=== PATIENT | female | born 1970 | race Caucasian/White ===

== ENCOUNTER 2019-09-12 10:59 | Outpatient (REF) | payer MEDICAID, SELFPAY ==
[2019-09-12 13:01] LABS: Bilirubin Negative (Negative); Blood Trace-lysed (Negative); Clarity Clear (Clear); Glucose Negative (Negative); Ketones Negative (Negative); Leukocyte Esterase Negative (Negative); Nitrite Negative (Negative); Urobilinogen 0.2 EU/dL (Up TO 0.2); pH 6.5 (5-8)
[2019-09-12 13:14] LABS: RBC 0-2 HPF (0-2); WBC 0-2 HPF (0-5)
[2019-09-12 13:15] LABS: Bacteria Negative HPF (Negative); C & S Indicated? C&S Done As Ordered; Casts Negative LPF (Negative); Crystals Negative HPF (Negative); Epithelial Cells Rare HPF (Negative); Mucus Negative (Negative); Other Cells Negative (Negative)
[2019-09-12 13:16] LABS: ALT 51 U/L (14-59); AST 36 U/L (15-37); Albumin 3.3 g/dL (3.4-5.0); Alkaline Phosphatase 36 U/L (46-116); Amylase 65 U/L (25-115); Anion Gap 9.4 mmol/L (3-11); BUN 11 mg/dL (7-18); Bilirubin, Total 0.4 mg/dL (0.2-1.0); CO2 27.6 mmol/L (21.0-32.0); CREATININE 0.59 mg/dL (0.55-1.02); Calcium 8.8 mg/dL (8.5-10.1); Chloride 106 mmol/L (98-107); Glucose 89 mg/dL (74-106); Lipase 318 U/L (73-393); Potassium 3.9 mmol/L (3.5-5.1); Sodium 143 mmol/L (136-145); Total Protein 6.5 g/dL (6.4-8.2)
[2019-09-12 13:31] LABS: HCT 41.3 % (36.0-46.0); HGB 14.4 g/dL (12.0-15.5); Mean Corp. HGB Concentration 34.9 g/dL (32.0-36.0); Mean Corpuscular Volume 94.7 fL (80-95); Mean Platelet Volume 10.7 fL (8.0-11.0); Platelet Count 220 x1000/uL (130-400); RBC 4.36 m/cumm (4.00-5.20); RBC Distribution Width 11.2 % (11.7-14.6); White Blood Cell Count 4.55 k/cumm (4.4-10.8)
== END 2019-09-12 11:19 ==
LOC: NCHCN 10:59
PROVIDERS: PCP Nurse Practitioner Family; Visit Provider Nurse Practitioner Family
DX: R19.7 Diarrhea, unspecified (principal); K58.9 Irritable bowel syndrome, unspecified; R35.0 Frequency of micturition
CPT/HCPCS: 80053; 83690; 85027; 81003; 81015; 82150; 87086

== ENCOUNTER 2019-09-12 11:12 | Outpatient (CLI) | payer MEDICAID, SELFPAY ==
--- NOTE | 2019-09-12 10:57 | DI.RAD_ITS ---
EXAM: XR ABDOMEN FLAT UPRIGHT CLINICAL HISTORY: GASTROPARESIS K31.84 TECHNIQUE: COMPARISON: No exams were available for comparison FINDINGS: Two views were obtained. The bowel gas pattern is unremarkable. No organomegaly seen. No free air identified on upright view. IMPRESSION: Negative examination of the abdomen.
== END 2019-09-12 11:32 ==
PROVIDERS: PCP Nurse Practitioner Family; Visit Provider Nurse Practitioner Family
DX: K31.84 Gastroparesis (principal)
CPT/HCPCS: 74019

== ENCOUNTER 2019-09-13 12:49 | Outpatient (REF) | payer MEDICAID, SELFPAY ==
[2019-09-16 12:11] LABS: Campylobacter PCR Negative (Negative); Salmonella PCR Negative (Negative); Shiga Toxin PCR Negative (Negative); Shigella/Enteroinvasive Ecoli Negative (Negative)
== END 2019-09-13 13:09 ==
LOC: NCHCN 12:49
PROVIDERS: PCP Nurse Practitioner Family; Visit Provider Nurse Practitioner Family
DX: K58.9 Irritable bowel syndrome, unspecified (principal); R19.7 Diarrhea, unspecified
CPT/HCPCS: 87329; 87505; 83630; 87324

== ENCOUNTER 2019-10-02 12:22 | Outpatient (REF) | payer MEDICAID, SELFPAY ==
[2019-10-03 13:20] LABS: Chlamydia Result Negative (Negative); GC Result Negative (Negative)
== END 2019-10-02 12:42 ==
LOC: LBN 12:22
PROVIDERS: PCP Nurse Practitioner Family; Visit Provider Nurse Practitioner Family
DX: Z11.3 Encounter for screening for infections with a predominantly sexual mode of transmission (principal)
CPT/HCPCS: 87491; 87591

== ENCOUNTER 2019-10-06 01:20 | Outpatient (CLI) | payer MEDICAID, SELFPAY ==
--- NOTE | 2019-10-06 13:03 | DI.US_ITS ---
EXAM: US PELVIS TRANSVAGINAL CLINICAL HISTORY: Hx uterine fibroids, pelvic pain, dyspareunia. TECHNIQUE: Ultrasound of the pelvic, both abdmonal and tranvaginal was performed using standard prot ocol. COMPARISON: No exams were available for comparison FINDINGS: KIDNEYS: Kidneys are symmetric in size. No evidence of renal calculi. No evidence of hydronephrosis. No renal mass or cyst identified. UTERUS: Position: Anteverted. Size: 8.8 x 4.2 x 5.8 cm Endometrium: 0.3 cm. Normal for patient's menstrual status. Myometrium: Multiple uterine fibroids are present. The largest is seen in the anterior fundal region and measures 2.7 x 2.1 x 2.0 cm. Cervix: Small nabothian cysts. OVARIES: Right: 2.0 x 1.1 x 1.3 cm Cyst or mass: None. Left: 1.9 x 1.3 x 1.6 cm Cyst or mass: Small cysts less than 2 cm. DOPPLER: Color: Symmetric and uniform flow to both ovaries. No hyperemia. Duplex: Normal ovarian arterial waveforms visualized. CUL-DE-SAC: Free fluid: None. IMPRESSION: 1. Normal sonographic appearance of the kidneys. 2. Multiple uterine fibroids. 3. Unremarkable bilateral ovaries.
== END 2019-10-06 01:40 ==
PROVIDERS: PCP Nurse Practitioner Family; Visit Provider Nurse Practitioner Family
DX: R10.2 Pelvic and perineal pain (principal); N94.10 Unspecified dyspareunia; D25.9 Leiomyoma of uterus, unspecified
CPT/HCPCS: 76830; 76856

== ENCOUNTER 2020-04-30 04:12 | Outpatient (CLI) | payer MEDICAID, SELFPAY ==
--- NOTE | 2020-04-30 06:30 | DI.MRI_ITS ---
EXAM: MR BRAIN WO/W CLINICAL HISTORY: MS, clinically stable,G35. TECHNIQUE: Multiplanar multisequence MRI was performed. FINDINGS: MR examination of the brain was performed according to the usual protocol with additional post contra st axial and coronal T1 weighted imaging and T1 MP RAGE imaging. Patient reportedly has a history of multiple sclerosis. Prior brain MRI from 12/25/2018 from [facility] showed multiple predominantly periventricular white matter lesions. Minimal enhancement was present in a right callosal lesion. On today's examination, note is again made of multiple periventricular lesions. These are predominan tly unchanged, a tiny new lesion is noted in the macario radiata on the right, a couple of other lesio ns are minimally increased or decreased in signal intensity. Note is again made of enhancement in the 11 millimeter in diameter right callosal lesion on post cont rast imaging. The degree of enhancement is a little more prominent on today's examination than was p reviously seen. No additional areas of enhancement are identified. The orbital structures appear intact. No gross enhancement in optic nerves or chiasm. No signal abn ormality of the optic nerves. The temporal bone structures appear intact. There is normal flow void in Rsdzep-qw-Hvzive vasculature. Diffusion-weighted imaging is unremarkable. Susceptibility weighted imaging shows no evidence of acu te intracranial hemorrhage. IMPRESSION: Predominantly stable appearance of multiple presumed MS plaques as described above. At least one new tiny right macario radiata lesion is noted. Enhancement is noted in a right callosal lesion, slightly more prominent enhancement in comparison wi prior study. DATA REPOSITORY: Are a [employer]
[2020-04-30] MEDS: Gadoterate meglumine 20 ML VIAL 11 ML IVP (09:38)
[2020-04-30] MEDS: Normal Saline Flush 10 ML SYR IVP (09:39)
== END 2020-04-30 04:32 ==
PROVIDERS: PCP Nurse Practitioner Family; Visit Provider Psychiatry & Neurology Neurology
DX: G35 Multiple sclerosis (principal)
CPT/HCPCS: 70553

== ENCOUNTER 2020-06-04 04:48 | Outpatient (CLI) | payer MEDICAID, SELFPAY ==
--- NOTE | 2020-06-04 08:15 | DI.US_ITS ---
EXAM: US PELVIS TRANSVAGINAL CLINICAL HISTORY: hx of septated L ovarian cyst,uterine fibroid,dyspareunia,d25.0,d25.1,d25.2 TECHNIQUE: Transabdominal and transvaginal imaging was performed using standard protocol. COMPARISON: US US PELVIS TRANSVAGINAL from 10/06/2019 FINDINGS: KIDNEYS: Kidneys are symmetric in size. No evidence of renal calculi. No evidence of hydronephrosis. No renal mass or cyst identified. UTERUS: Anteverted. 8.3 x 4.6 x 6 cm. Endometrium: 4 millimeters, homogeneous. Myometrium: Multiple fibroids, the largest measuring 2.8 cm toward the right. Cervix: Small nabothian cysts. OVARIES: Right: Cyst or mass: None. Left: Cyst or mass: None. DOPPLER: Color: Symmetric and uniform flow to both ovaries. No hyperemia. Duplex: Normal ovarian arterial waveforms visualized. CUL-DE-SAC: Free fluid: None. IMPRESSION: 1. Multiple small fibroids. Endometrial stripe within normal limits. 2. Unremarkable bilateral ovaries. DATA REPOSITORY:
== END 2020-06-04 05:08 ==
PROVIDERS: PCP Nurse Practitioner Family; Visit Provider Obstetrics & Gynecology Gynecology
DX: D25.0 Submucous leiomyoma of uterus (principal); D25.1 Intramural leiomyoma of uterus; D25.2 Subserosal leiomyoma of uterus
CPT/HCPCS: 76830; 76856

== ENCOUNTER 2021-06-21 12:24 | Outpatient (REF) | payer MEDICAID, SELFPAY ==
--- NOTE | 2021-06-21 10:30 | PAPFT_PTH ---
PATIENT: Yumi Leal LOC: [facility]#:[id number] AGE/SX: 51/F ROOM: RE06/21/[address]: Nicole Mays : 1970 BED: DIS: 06/21/2021 SPEC #: [id number] RECD: 06/21/21 13:08 STATUS: ALEXEY REQ #: [id number] JAYLAN: 06/21/21 10:[address]: Nicole Mays DEPT: [facility] Cytology RECD BY: Sydney Dawn ENTERED: 06/21/21 13:08 SP TYPE: PAPFT OTHR DR: John Rosario Tissues: 1 - CX/ENDOCX FOR PAP SMEARS Procedures: PAP THIN PREP/UVM Screening HPV DNA PROBE Comments: [id number]
== END 2021-06-21 12:25 | disposition home or self-care (01) ==
LOC: LBN 12:24
PROVIDERS: PCP Nurse Practitioner Family; Visit Provider Obstetrics & Gynecology Gynecology
DX: Z12.4 Encounter for screening for malignant neoplasm of cervix (principal); Z11.51 Encounter for screening for human papillomavirus (HPV); Z01.419 Encounter for gynecological examination (general) (routine) without abnormal findings
CPT/HCPCS: 88142; 87624

== ENCOUNTER 2021-07-20 00:53 | Outpatient (CLI) | payer MEDICAID, SELFPAY ==
--- NOTE | 2021-07-20 11:00 | DI.MAMMO_ITS ---
Exam(s) MAMMO SCREENING EXAM: MAMMO SCREENING CLINICAL HISTORY: screening TECHNIQUE: Mammograms were interpreted according to the usual protocol including computer analysis w [employer] CAD system, tomosynthesis and C-view imaging. COMPARISON: FINDINGS: The breasts are heterogeneously dense. No dominant mass or clumped microcalcification is identified in either breast. The current examination is compared with previous examinations including January 2019 and there has been no gross interval change in appearance in comparison with the prior studies. IMPRESSION: No specific evidence of malignancy at this time. Routine screening examinations are suggested at yea rly intervals in this age group according to the ACS ACR guidelines. BI-RADS Category 1 - Negative Density Breast Density - Category C - Heterogeneously dense
== END 2021-07-20 01:13 ==
PROVIDERS: PCP Nurse Practitioner Family; Visit Provider Obstetrics & Gynecology Gynecology
DX: Z12.31 Encounter for screening mammogram for malignant neoplasm of breast (principal)
CPT/HCPCS: 77063; 77067

== ENCOUNTER 2022-02-27 15:33 | Outpatient (REF) | payer MEDICAID, SELFPAY ==
[2022-02-27 18:54] LABS: HCT 40.8 % (36.0-46.0); HGB 14.6 g/dL (11.2-15.7); MCH 34.4 pg (27.0-33.0); MCHC 35.8 % (32.0-36.0); MCV 96 fL (80-95); MPV 11.2 fL (8.0-11.0); Platelet Count 196 10^3/uL (130-400); RBC 4.25 10^6/uL (3.93-5.22); RDW 10.7 % (11.7-14.6); WBC 7.36 10^3/uL (4.4-10.8)
[2022-02-27 19:37] LABS: Anion Gap 7.4 mmol/L (3-11); BUN 14 mg/dL (7-18); CO2 26.6 mmol/L (21.0-32.0); CREATININE 0.7 mg/dL (0.55-1.02); Calcium 8.8 mg/dL (8.5-10.1); Chloride 105 mmol/L (98-107); Glucose 88 mg/dL (74-106); Potassium 3.5 mmol/L (3.5-5.1); Sodium 139 mmol/L (136-145); TSH (W/Ref FT4) 0.81 uIU/mL (0.36-3.74)
== END 2022-02-27 15:34 | disposition home or self-care (01) ==
LOC: NCHCN 15:33
PROVIDERS: PCP Nurse Practitioner Family; Visit Provider Nurse Practitioner Family
DX: R00.2 Palpitations (principal); F41.8 Other specified anxiety disorders; L30.8 Other specified dermatitis; M25.511 Pain in right shoulder; J30.9 Allergic rhinitis, unspecified
CPT/HCPCS: 80048; 85027; 84443

== ENCOUNTER 2022-04-11 13:47 | Outpatient (CLI) | payer MEDICAID, SELFPAY ==
--- NOTE | 2022-04-11 13:15 | DI.RAD_ITS ---
Exam(s) XR SHOULDER RT COMPLETE 2+V EXAM: XR SHOULDER RT COMPLETE 2+V CLINICAL HISTORY: RIGHT SHOULDER PAIN. TECHNIQUE: 2D digital imaging was performed. Two views. COMPARISON: No exams were available for comparison FINDINGS: BONES: No acute fracture is present. No bony destructive lesion is seen. JOINTS: No dislocation present. SOFT TISSUE: Normal. IMPRESSION: Unremarkable radiographs of the right shoulder. DATA REPOSITORY: RADIATION DOSE DELIVERED:
== END 2022-04-11 13:48 | disposition home or self-care (01) ==
LOC: DIORS 13:48
PROVIDERS: PCP Nurse Practitioner Family; Referring Provider Nurse Practitioner Family; Visit Provider Student in an Organized Health Care Education/Training Program
DX: M25.511 Pain in right shoulder (principal)
CPT/HCPCS: 73030

== ENCOUNTER 2022-07-07 02:32 | Outpatient (CLI) | payer MEDICAID, SELFPAY ==
--- OUTSIDE RECORDS SUMMARY | 2022-07-07 02:43 | XMS_ITS | Clinical Summary ---
:[address] [facility] Address [address] [place] [address] Care Team Providers Name Role Phone Unavailable Primary Care Provider Unavailable Social History Tobacco Use Types Packs/Day Years Used Date Never Assessed Sex Assigned at Date Recorded Not on file Plan of Treatment Health Maintenance Due Date Last Done Comments Hepatitis C Screen 1970 COVID-19 Vaccine (1) 1984
--- OUTSIDE RECORDS SUMMARY | 2022-07-07 02:43 | XMS_ITS | Encounter Summary ---
:1970 Author Organization [facility] Address [address] [place] [address] Care Team Providers Name Role Phone Unavailable Primary Care Provider Unavailable Encounter Details Date Type Department Care Team Description 09/15/2019 Lab Requisition [facility] Unknown, Provider, Pathology & Laboratory [facility] [address] [place] [address] [place] [address] Social History Tobacco Use Types Packs/Day Years Used Date Never Assessed Sex Assigned at Date Recorded Not on file documented as of this encounter Plan of Treatment Not on filedocumented as of this encounter Procedures Procedure Name Priority Date/Time Associated Diagnosis Comme nts FECAL BACTERIAL Routine 09/13/2019 15:08 Results for this PATHOGENS BY PCR EST procedure a re in the results section. documented in this encounter Results FECAL BACTERIAL PATHOGENS BY PCR (09/13/2019 15:08 EST) Pathologist Sig nature Salmonella PCR Negative Negative [facility] Shigella/Enteroinvasive Negative Negative [facility] HN LAB CAMPYLOBACTER PCR Negative Negative [facility] Shiga Toxin PCR Negative Negative [facility] Specimen Feces - Feces Performing Organization Address City/State/ZIP Code Phon e Number [facility] [address] [place] [address] SERVICES documented in this encounter Visit Diagnoses Not on filedocumented in this encounter
--- OUTSIDE RECORDS SUMMARY | 2022-07-07 02:43 | XMS_ITS | Encounter Summary ---
:1970 Author Organization [facility] Address [address] [place] [address] Care Team Providers Name Role Phone Unavailable Primary Care Provider Unavailable Encounter Details Date Type Department Care Team Description 06/22/2021 Lab Requisition [facility] Nicole Lyle, En counter for other Pathology & MD general examination Laboratory Medicine [address] [facility] [address] [place] [address] Social History Tobacco Use Types Packs/Day Years Used Date Never Assessed Sex Assigned at Date Recorded Not on file documented as of this encounter Plan of Treatment Not on filedocumented as of this encounter Procedures Procedure Name Priority Date/Time Associated Comments Diagnosis PAP TEST Today 06/21/2021 10:30 Encounter for other Resu lts for this EDT general examination procedur e are in the results section. HUMAN PAPILLOMAVIRUS Today 06/21/2021 10:30 Encounter for ot her Results for this (HPV) DETECTION-HIGH EDT general examination procedure are in RISK TYPES the results section. documented in this encounter Results HUMAN PAPILLOMAVIRUS (HPV) DETECTION-HIGH RISK TYPES (06/21/2021 10:30 EDT) Human Papillomavirus NegativeComment: No Negative [facility] (HPV) Detection-High E6 or E7 mRNA is CENTER LABORATOR Y Types detected from HPV SERVICES types 16,18,31,33,35,39,45 ,51,52,56,58,59,66, and 68 by linux vmware administrator mediated amplification. Specimen Pap Test - Cervix and/or Endocervix Performing Organization Address City/State/ZIP Code Phon e Number [facility] [address] [place] [address] SERVICES PAP TEST (06/21/2021 10:30 EDT) Specimens A. Cervix and/or [facility] Endocervix , ThinPrep CENTER Imaging System with LABORATORY Manual Evaluation SERVICES Specimen Adequacy Satisfactory for [facility] Evaluation - CENTER transformation zone LABORATORY component present SERVICES General Negative for [facility] intraepithelial HUDSON lesion or malignancy LABORATORY SERVICES Attestation . [facility] CENTER signed by KADEN Asencio CT(ASC P) SERVICES on 07/01/2021 a t 1559 Clinical History See below [facility] HPV The result for the Human Pap illomavirus (HPV) Detection-High Risk Types is Negative. No E6 or E7 mRNA is detected from HPV types 16,18,31,33,35,39,45,51,52,56,58,59,66, and 68 by linux vmware administrator mediated [facility] amplification.Testing was pe rformed on specimen [id number] and was resulted on 07/01/2021 1555 EDT by STACEY, LAB INSTRUMENT RESULTS IN [facility] SERVICES Performing Lab [facility] Scanned Images [facility] Specimen Pap Test - Cervix and/or Endocervix Performing Organization Address City/State/ZIP Code Phon e Number [facility] [address] [place] [address] SERVICES documented in this encounter Visit Diagnoses Diagnosis Encounter for other general examination documented in this encounter
--- OUTSIDE RECORDS SUMMARY | 2022-07-07 02:43 | XMS_ITS | Encounter Summary ---
:1970 Author Organization [facility] Address [address] [place] [address] Care Team Providers Name Role Phone Unavailable Primary Care Provider Unavailable Encounter Details Date Type Department Care Team Description 10/02/2019 Lab Requisition [facility] Unknown, Provider, Pathology & Laboratory [facility] [address] [place] [address] [place] [address] Social History Tobacco Use Types Packs/Day Years Used Date Never Assessed Sex Assigned at Date Recorded Not on file documented as of this encounter Plan of Treatment Not on filedocumented as of this encounter Procedures Procedure Name Priority Date/Time Associated Comments Diagnosis CHLAMYDIA/N. Routine 10/02/2019 10:00 Results for this GONORRHOEAE AMPLIFIED EST proced ure are in RNA the results section. documented in this encounter Results CHLAMYDIA/N. GONORRHOEAE AMPLIFIED RNA (10/02/2019 10:00 EST) Pathologist Sig nature Gonococcus Result Negative Negative [facility] Chlamydia Result Negative Negative [facility] Specimen Urine - Urine (substance) Narrative [facility] - 10/03/2019 13:16 EST A first catch urine specimen is acceptab le for detection of Gonorrhea and Chlamydia, but might detect up to 10% fewer infecti ons when compared with vaginal and endocervical swab samples. Performing Organization Address City/State/ZIP Code Phon e Number [facility] [address] [place] [address] SERVICES documented in this encounter Visit Diagnoses Not on filedocumented in this encounter
--- OUTSIDE RECORDS SUMMARY | 2022-07-07 02:44 | XMS_ITS | Encounter Summary ---
:1970 Author Organization [facility] [place] [address] Care Team Providers Name Role Phone John Rosario ERICK Primary Care Provider Encounter Details Date Type Department Care Team Description 10/11/2021 Telephone [place] [facility] [place] [address] Social History Tobacco Use Types Packs/Day Years Used Date Never Assessed Sex Assigned at Date Recorded Not on file documented as of this encounter Miscellaneous Notes Telephone Encounter - Cris Younger - 10/12/2021 3:09 PM EST Left second message for patient to contact the office for scheduling. Dr Gonzalez has referred the patient to [facility]. ?? Group 1 starting 11/14 3pm-4pm Group 2 starting 12/12 11am-12pm Telephone Encounter - Cris Younger - 10/11/2021 10:12 AM EST CORRECTION: Group 1 starts 11/14 3pm-4pm Telephone Encounter - Cris Younger - 10/11/2021 9:29 AM EST Left message for patient to contact the office for scheduling. Dr Gonzalez has referred the [facility] to[facility]. Group 1 starting 11/17 3pm-4pm Group 2 starting 12/12 11am-12pm documented in this encounter Plan of Treatment Upcoming Encounters Date Type Specialty Care Team Description 11/13/2022 TH Visit (TeleHealth) Gastroenterology Frank Gonzalez MD [facility] Gastroenterology [place], [place] [address] (Wo rk) documented as of this encounter Visit Diagnoses Not on filedocumented in this encounter Care Teams Welfare Manager Relationship Specialty Start Date End Date John Rosario APRN PCP - General Family Medicine 07/23/19 [address] [place] [address] documented as of this encounter
--- OUTSIDE RECORDS SUMMARY | 2022-07-07 02:44 | XMS_ITS | Encounter Summary ---
:1970 Author Organization [facility] [place] [address] Care Team Providers Name Role Phone John Rosario APRN Primary Care Provider Encounter Details Date Type Department Care Team Description 07/18/2021 Telephone G[facility]ology at [facility] Carmen Bennett CMA [facility] Estevan [place] [address] DEPT [phone] Social History Tobacco Use Types Packs/Day Years Used Date Never Assessed Sex Assigned at Date Recorded Not on file documented as of this encounter Miscellaneous Notes Telephone Encounter - Carmen Bennett CMA - 07/18/2021 8:30 AM EST Called patient to review medications and allergies for their upcoming gastroenterology Type of Appointment: Telehealth appointment. Reach Patient during MA Check: No, Left Message Notes for the provider: Notes for the nurse: documented in this encounter Plan of Treatment Upcoming Encounters Date Type Specialty Care Team Description 11/13/2022 TH Visit (TeleHealth) Gastroenterology Frank Gonzalez MD [facility] Dr Gastroenterology [place], [place] [address] (Wo rk) documented as of this encounter Visit Diagnoses Not on filedocumented in this encounter Care Teams Bank Boss Relationship Specialty Start Date End Date John Rosario APRN PCP - General Family Medicine 07/23/19 [address] [place] [address] documented as of this encounter
--- OUTSIDE RECORDS SUMMARY | 2022-07-07 02:44 | XMS_ITS | Encounter Summary ---
:1970 [place] [address] Care Team Providers Name Role Phone John Rosario APRN Primary Care Provider Reason for Visit Reason Onset Date Comments Medication Refill 11/21/2021 Encounter Details Date Type Department Care Team Description 11/21/2021 Refill Gastroenterology at [facility] Domi Orozco Irritable bowel [facility] Estevan [place] [address] constipation [phone] Social History Tobacco Use Types Packs/Day Years Used Date Never Assessed Sex Assigned at Date Recorded Not on file documented as of this encounter Plan of Treatment Upcoming Encounters Date Type Specialty Care Team Description 11/13/2022 TH Visit (TeleHealth) Gastroenterology Frank Gonzalez MD [facility] Dr Gastroenterology [place], [place] [address] (Wo rk) documented as of this encounter Visit Diagnoses Diagnosis Irritable bowel syndrome with constipati on Irritable bowel syndrome documented in this encounter Care Teams Prison Guard Supervisor Relationship Specialty Start Date End Date John Rosario APRN PCP - General Family Medicine 07/23/19 [address] [place], [place] [id number] documented as of this encounter
--- OUTSIDE RECORDS SUMMARY | 2022-07-07 02:44 | XMS_ITS | Encounter Summary ---
:1970 Author Organization [facility] [place] [address] Care Team Providers Name Role Phone John Rosario ERICK Primary Care Provider Reason for Visit Reason Onset Date Comments Prior Authorization 07/21/2021 Encounter Details Date Type Department Care Team Description 07/21/2021 Telephone Gastroenterology at [facility] Jossy, Prior Authorization [facility] [place] [address] Social History Tobacco Use Types Packs/Day Years Used Date Never Assessed Sex Assigned at Date Recorded Not on file documented as of this encounter Miscellaneous Notes Telephone Encounter - Macarena Fenton LNA - 07/21/2021 1:57 PM EST Medication Prior Authorization [facility]L Gastroenterology / [place] [address] Subscriber Insurance: [place] Medicaid Phone: Fax: Physician: Kim Gonzalez Return Pharmacy: [facility] Fax: Medication Requested: Hyoscyamine Strength: 0.125mg Frequency: Every 4 hours as needed Disp.: 30 Refills: 3 Currently taking: Diagnosis for this medication: IBS-C ICD-10 code: K58.1 Prior medications trialed in this patient: Medication: Outcome/Adverse Reactions: Decision: Not Required Tracking number/Case number/Reference number: [id number] Effective date: 07/21/2021 to 07/21/2022 Start: End: documented in this encounter Plan of Treatment Upcoming Encounters Date Type Specialty Care Team Description 11/13/2022 TH Visit (TeleHealth) Gastroenterology Frank Gonzalez MD [facility] Gastroenterology [place], [place] [address] (Wo rk) documented as of this encounter Visit Diagnoses Not on filedocumented in this encounter Care Teams Black [employer] Coating Equipment Tender Relationship Specialty Start Date End Date John Rosario APRN PCP - General Family Medicine 07/23/19 [address] [place] [address] documented as of this encounter
--- OUTSIDE RECORDS SUMMARY | 2022-07-07 02:44 | XMS_ITS | Encounter Summary ---
:1970 Author Organization [facility] [place] [address] Care Team Providers Name Role Phone John Rosario ERICK Primary Care Provider Reason for Referral Physical Therapy (Routine) - Closed Specialty Diagnoses / Procedures Referred By Contact Refer red To Contact Physical Therapy Diagnoses Chronic constipation Kim Gonzalez MD [facility] [place] [address] Referral ID Status Reason Start Date Expiration Date Visits V isits Requested Authorized [id number] Closed Evaluate and 04/11/2021 10/08/2021 12 12 Treat Consultation (Routine) - Closed Specialty Diagnoses / Procedures Referred By Contact Refer red To Contact Gastroenterology Diagnoses Abdominal bloating HBT - lactulose - Kim [place] MD [facility] 4[facility] Procedures BREATH HYDROGEN TEST PRFM [facility] lact[facility] [place] [address] Fax: Referral ID Status Reason Start Date Expiration Date Visits V isits Requested Authorized [id number] Closed Consult, 04/11/2021 04/11/2022 1 1 Test & Treat Encounter Details Date Type Department Care Team Description 04/11/2021 TH Visit Gastroenterology at [facility] Kim Gonzalez Irritable bowel syndrome, un specified type; (TeleHealth) [facility] Estevan Cohen MD Abdominal bloating; [place] [address] [facility] Medical Chronic constipation [phone] [place] [address] Social History Tobacco Use Types Packs/Day Years Used Date Never Assessed Sex Assigned at Date Recorded Not on file documented as of this encounter Patient Instructions Patient InstructionsiKm Gonzalez MD - 04/11/2021 10:00 AM EDT Recommendations ?? For difficulty with eating, try [employer] shakes ?? Stop Motegrity as this does not seem to be helping ?? Start Cymbalta 20mg/day to help reduce pain and discomfort - after one month we can increase thisdose if you let me know ?? Continue Miralax ?? Use peppermint capsules - specifically try FDgard (1 prior to eating twice a day) over the counter can help reduce nausea and stomach symptoms ?? Referral for breath test to confirm the diagnosis of small intestinal bacterial overgrowth or SIBO - this can look for both hydrogen gas as well as methane gas; if abnormal, will try a different antibiotic than flagyl ?? Would recommend a consultation with pelvic floor PT at least one time prior to this with a home exercise program if applicable - referral to [facility] ---> will fax over the referral; I did look at their website and I did not see a pelvic floor therapist, so this may not be themost helpful place to go (unless their website just needs updating) ?? Anorectal manometry not scheduled until March 2022; See information below about dyssynergia thatcan contribute to distention and constipation and the benefits of diaphragmatic breathing ?? Rescue strategy: Glycerine or dulcolax suppository after breakfast or after dinner to help stimulate evacuation of stool and air/gas (in addition to dulcolax) See information abdomino-phrenic & pelvic floor dyssynergia that can contribute to abdominal distention (and constipation) ??? https://www.iffgd.org/commentary/qkvyzmekxsplw-nslwqebyga-qb-disorders.html Diaphragmatic breathing - start doing this several times per day ??? https://my.[facility].org/health/articles/4264-qulmhyeipkezp-jfhzjycsh ??? https://www.[facility].org/conditions-treatments/armwzajugzzbd-amkeppcge-ug-pepe ents Follow-up in: 2-3 months documented in this encounter Progress Notes Kim Gonzalez MD - 04/11/2021 10:00 AM EDT [facility] Section of Gastroenterology and Hepatology Follow-up Telemedicine Visit PCP: John Rosario APRN Referring provider: John Rosario APRN [address] [place] [address] HPI 51 y.o. female following up for IBS-C and gastroparesis. GI PROBLEM LIST 1. Gastroparesis <--> functional dyspepsia: NM GE scan abnormal 15% delayed, avoids high fiat/high fiber 2. IBS-C (intense pain when misses one day without a BM) ?? Colonoscopies last in 2018 (x 4) reportedly normal, 2017 for bleeding ?? Reportedly negative celiac serology ?? CTE negative 2013 ?? Trials include Miralax BID (effective, needed to have loose stools to move her bowels), Dulcolax (rescue, just 1), Milk of Magnesium 1x/wk, Linzess (gassy - multiple trials, a couple of weeks only 2/2 to pain), Amitiza (nausea, bloated - multiple trials, only a couple of weeks 2/2 to pain), Peppermint capsules (helpful), Amitriptyline, low FODMAP diet (helpful temporarily), gluten-free diet, phazyme & gas-X (not helpful), motegrity (since Sep 2020, no relief) 3. Abdominal bloating & distention - SIBO? ?? SIBO rx (rifaximin 550mg TID x 14 days on 07/23/2020) x 2 times with (sx returned a few weeks later) but seems to provide relief for about 6 months 4. H pylori s/p abx 5. PUD 6. GERD controlled on PPI Interval follow-up Pelvic floor evaluation (ARM) scheduled for MARCH 2022! Xifaxan not covered for repeat SIBO rx - given flagyl 250mg TID back in December - does not remember ifit helped. In a lot of pain over the past few months (January). Had to stop working. No QOL. Eating bland foods. Sick every day. Gas and bloating and distention. Constant gurgling. Feels like gas just sits there. On the left side. Gas-X sometimes reduces pain. Worsening pain over the past 4 days, constant. Also feels like food is not moving anywhere in her stomach. Feeling dinner from 5pm the night prior.Constant nausea. Still on Motegrity - no change with this. Daily BMs with Miralax. Trial of iberogast x 1 month - no change Pelvic floor PT for bladder - overactive bladder Prior experience with amitriptyline: fatigue Review of systems: 14-point review of systems reviewed and negative except as above. My review of the patients's history and testing (labs, endoscopies, imaging) is summarized below: INITIAL HISTORY She has daily symptoms. She is afraid to eat much due to discomfort so limits intake. Extreme bloating, rumbling, distention. Constant gas, even just with one cracker or a carrot. Does not seem to matter what she eats. Can be doubled over in the position. Can also have intermittent distention for 1-3 days at a time, looks like a basketball. Feels like she's being pumped up with air (can occur after a BM, prior to eating); different than the gas feeling.Feels like something is in there, like there's a blockage even though she knows there isn't one. Got significant relief from this feeling as well as discomfort with xifaxan. Other days she wakes up andcan have a BM and relieve all the gas. About 1 month ago she changed her diet to no carb, gluten-free, low FODMAP. Eating protein and some veggies (spinach, kale, green beans). This helped - felt good for a little while but sx returned. Her baseline bowel pattern is constipation. Progressive sx over the years. Has been on Miralax for about 10 years, which has always given her loose stools. Without Miralax she couldn't go at all for upto a week and would be very sick with nausea, pain and bloating. Takes Miralax 1 capful BID and it takes about 1 day to work. Like clockwork in the morning. Stool isloose (pure liquid). Can sometimes have a BM right when she wakes up and then after coffee. Feels completely evacuated. Missing 1-2 days without a BM triggers intense pain, may need to take a dulcolax (just 1 - more than1 cramps her). Stopped milk of Mg. Feels like she's blocked up with gas. Passes gas and then has a BM that is liquid or complete mush. Has tried phazyme, gas-X with no relief. Drinks plenty of water which she knows makes a difference - 64 ounces per day. She is very active which she tries to do - maybe it helps but not instant. Motegrity (since September) doesn't seem to be helping. Reads a lot about IBS. Recalls a lot of stomach aches as a kid. Pain worsened when she was in her 20s. Went to the ED and told she was constipated based on imaging. Started seeing a sales assistant displays then. Does not recall ever having hard stools or straining. In terms of her upper GI sx, feels like food just sits there. Has nausea. No vomiting. Diet makes a difference. Avoids red meat as this won't move. Similar to pizza. Sticks to chicken and fish. Was told she had Crohn's for some time and then this was undiagnosed. Was given some Crohn's medications. Repeat evaluation since with no signs of Crohn's. Also with H pylori hx s/p abx Protonix daily for GERD. Uveitis - eye drops, no flare ups. Hormonal fluctuations Peppermint helps. PMHx ?? Migraine ?? MS not on meds ?? Uveitis ?? Ulcer, gastric - 2/2 to NSAIDs ?? Allergic rhinitis ?? Nasal polyp, removed PSHx ?? Remote appendectomy 16 years ago SHx Smoked 3 years quit > 30 years ago FHx DM2, heart disease, mental illness. No CRC. Maternal aunt with Crohn's. Father with GERD - concern for Delgado's. TESTING As noted above TRIALS ?? Miralax BID (effective) ?? Milk of Magnesium 1x/wk ?? Linzess (gassy - multiple trials, a couple of weeks only 2/2 to pain) ?? Amitiza (nausea, bloated - multiple trials, only a couple of weeks 2/2 to pain) ?? Peppermint capsules - helpful ?? Amitriptyline ?? Low FODMAP diet - helpful ?? Gluten-free diet ?? Motegrity ?? Phazyme - no relief ?? Gas-X - no relief ?? Gabapentin - fatigue (x 1 month) Patient Active Problem List Diagnosis Code ??? Dyspepsia R10.13 ??? Chronic constipation K59.09 Current Outpatient Medications: ??? prucalopride (Motegrity) 2 mg Tablet, Take 2 mg by mouth daily., Disp: , Rfl: ??? polyethylene glycoL (Miralax) 17 gram Powder in Packet, Take 17 g by mouth daily., Disp: , Rfl: ??? pantoprazole EC (Protonix) 40 mg Tablet, Delayed Release (E.C.), Take 40 mg by mouth daily., Disp: , Rfl: Allergies Allergen Reactions ??? Fingolimod ??? Venlafaxine Other (See Comments) Headache ??? Amitriptyline ??? Dimethyl Fumarate ??? Fluoxetine ??? Gabapentin ??? Glatiramer (Copolymer 1) No past medical history on file. No past surgical history on file. Social History Socioeconomic History ??? Marital status: Spouse name: Not on file ??? Number of children: Not on file ??? Years of education: Not on file ??? Highest education level: Not on file Occupational History ??? Not on file Tobacco Use ??? Smoking status: Not on file Substance and Sexual Activity ??? Alcohol use: Not on file ??? Drug use: Not on file ??? Sexual activity: Not on file Other Topics Concern ??? Not on file Social History Narrative ??? Not on file Social Determinants of Health Financial Resource Strain: ??? Difficulty of Paying Living Expenses: Not on file Food Insecurity: ??? Worried About Running Out of Food in the Last Year: Not on file ??? Ran Out of Food in the Last Year: Not on file Transportation Needs: ??? Lack of Transportation (Medical): Not on file ??? Lack of Transportation (Non-Medical): Not on file Physical Activity: ??? Days of Exercise per Week: Not on file ??? Minutes of Exercise per Session: Not on file No family history on file. Physical Exam: No physical exam performed during this phone/telemedicine visit. PERTINENT LABS AND IMAGING: As noted above Impression: 51 y.o. female with MS not on medications, migraine headaches and uveitis following up for gastroparesis and IBS-C. Multiple sclerosis can result in dysmotility and affect the pelvic floor muscles and make them more spastic. - Functional dyspepsia (FD) <-- gastroparesis; symptoms sound more FD-like at the present time, notably she has significant nausea but is not vomiting - Constipation defined by the prolonged absence of bowel movements (> 1 week) associated with abdominal pain and bloating, requiring the use of laxatives to trigger any bowel movement (subsequently loose stool, not hard). Question pelvic floor dysfunction (has not been evaluated or ruled out) or slow transit - MS may cause both. Given degree of pain is on IBS-C spectrum. Prior eval for IBD was negative. Stool continues to be loose on Miralax. Seemingly no benefit to motegrity. Relates much of herpain to gas. Discussed visceral hypersensitivity today and how this contributes to bloating even with potentially normal amounts of gas which is most common in IBS. I think she would benefit from a neur omodulator. Secretagogues have seemed to worsen symptoms. We also discussed re- evaluating for SIBO (below). 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 Consider dysmotility with high fecal load & SIBO given response to antibiotics and abnormal NM GE scan. Recommendations ?? For difficulty with eating, try [employer] shakes ?? Stop Motegrity as this does not seem to be helping ?? Start Cymbalta 20mg/day to help reduce pain and discomfort - after one month we can increase thisdose if you let me know ?? Continue Miralax ?? Use peppermint capsules - specifically try FDgard (1 prior to eating twice a day) over the counter can help reduce nausea and stomach symptoms ?? Referral for breath test to confirm the diagnosis of small intestinal bacterial overgrowth or SIBO - this can look for both hydrogen gas as well as methane gas; if abnormal, will try a different antibiotic than flagyl ?? Would recommend a consultation with pelvic floor PT at least one time prior to this with a home exercise program if applicable - [facility] to [facility] ---> will fax over the referral; I did look at their website and I did not see a pelvic floor therapist, so this may not be themost helpful place to go (unless their website just needs updating) ?? Anorectal manometry not scheduled until March 2022; See information below about dyssynergia thatcan contribute to distention and constipation and the benefits of diaphragmatic breathing ?? Sitz Marker to assess the speed of your colon only after pelvic floor analysis; [facility] declined ?? Rescue strategy: Glycerine or dulcolax suppository after breakfast or after dinner to help stimulate evacuation of stool and air/gas (in addition to dulcolax) ?? Consider additional anti-emetics (Tigan?); consider buspar, mirtazipine or trulance, would avoid TCA at this time, did not tolerate gabapentin and amitriptyline 2/2 to fatigue See information abdomino-phrenic & pelvic floor dyssynergia that can contribute to abdominal distention (and constipation) ??? https://www.iffgd.org/commentary/rbpennphcdbtj-coauiwdqcf-bw-disorders.html Diaphragmatic breathing - start doing this several times per day ??? https://my.[facility].org/health/articles/1451-gbwfmykwvdqjb-cewvgikfn ??? https://www.[facility].org/conditions-treatments/ggbnmgohfjlvn-niibybxoy-ca-pepe ents Follow-up in: 2-3 months TIME SPENT WITH PATIENT Time spent during encounter with patient including counselin minutes Time spent documenting encounter after office visit: 10 minutes Total time: 40 minutes The risks, benefits and alternatives were discussed with the patient who understands and agrees withabove. The patient was located in [place] at the time of their telemedicine visit. Kim Gonzalez MD 04/10/21 Kim Gonzalez MD [employer] Section of Gastroenterology and Hepatology [facility] Juan [email or web address] (p) documented in this encounter Plan of Treatment Upcoming Encounters Date Type Specialty Care Team Description 11/13/2022 TH Visit (TeleHealth) Gastroenterology Frank Gonzalez MD [facility] Dr Gastroenterology [place], [place] [address] (Wo rk) Scheduled Referrals Name Type Priority Associated Order Schedule Diagnoses Referral to Outpatient Routine Abdominal bloating Ordered: Gastroenterology Referral 04/11/2021 Referral to Physical Outpatient Routine Chronic Ordered : Therapy Referral constipation 04/11/2021 documented as of this encounter Visit Diagnoses Diagnosis Irritable bowel syndrome, unspecified ty pe Abdominal bloating Flatulence, eructation, and gas pain Chronic constipation Unspecified constipation documented in this encounter Care Teams Supervisor Wool Shearing Relationship Specialty Start Date End Date John Rosario APRN PCP - General Family Medicine 07/23/19 [address] [place] [address] documented as of this encounter
--- OUTSIDE RECORDS SUMMARY | 2022-07-07 02:44 | XMS_ITS | Encounter Summary ---
:1970 Author Organization [facility] [place] [address] Care Team Providers Name Role Phone John Rosario ERICK Primary Care Provider Reason for Referral Psychiatric (Routine) - Closed Specialty Diagnoses / Procedures Referred By Contact Refer red To Contact Gastroenterology Diagnoses Irritable bowel syndrome with constipation Kim Gonzalez MD [facility], [facility] Estevan Cohen, PhD Gastroenterology [facility] [place] [address] Fax: Referral ID Status Reason Start Date Expiration Date Visits V isits Requested Authorized [id number] Closed Consult, 09/26/2021 09/26/2022 1 1 Test & Treat Encounter Details Date Type Department Care Team Description 09/26/2021 [place] [facility] [place] Gonzalez Irritable bowel syndrome wit h constipation; (TeleHealth) [facility] Estevan Cohen MD Dyspepsia; [place] [address] [facility] Abdominal bloating [phone] [facility] [place] [id number] Social History Tobacco Use Types Packs/Day Years Used Date Never Assessed Sex Assigned at Date Recorded Not on file documented as of this encounter Patient Instructions Patient InstructionsKim Gonzalez MD - 09/26/2021 11:30 AM EST Recommendations ?? Recommend brain-gut behavior therapy groups - this approach can help reduce chronic pain ?? Try Bethany's Tummy Teas ?? Continue peppermint NOW brand 1 twice a day ?? Try reducing Miralax from 2 caps to 1 capful per day which may help reduce bloating ?? Try trulance every other day for a couple of weeks; if this is not effective, try 2 doses at once(6mg) every other day (off label dosing) ?? Dulcolax as needed ?? Recommend re-considering [place] [facility] [place] If worsening symptoms or no improvement, we may consider ?? Tegaserod, see: [email or web address]-[email or web address] m-ns-uvijcom-[email or web address]-szal-bb-certain-women ?? Resuming motegrity, intermittent dosing ?? Trial of Senna or smooth move tea (instead of dulcolax) ?? Buspar (relaxes the stomach), low dose only 5mg prior to dinner ?? Domperidone 10 to 20mg prior to dinner meal (from Cue) to help with gastric emptying Follow-up in: 3 months documented in this encounter Progress Notes Kim Gonzalez MD - 09/26/2021 11:30 AM EST [facility] Section of Gastroenterology and Hepatology Follow-up Telemedicine Visit PCP: John Rosario APRN HPI 51 y.o. female following up for IBS-C and gastroparesis. Goals: improved QoL, get back to work Current regimen: Trulance, peppermint 1 BID, Miralax 2 capfuls/day, does home exercises and familiarwith diaphragmatic breathing GI PROBLEM LIST 1. Gastroparesis <--> functional dyspepsia: NM GE scan abnormal 15% delayed, avoids high fat/high fiber. Symptoms sound more FD-like. Nausea is significant, had vomiting when significantly constipated. ?? Prefers to avoid meds with potential significant side effects like reglan 2. IBS-C (intense pain when misses one day without a BM), severe, out of work, impact on QoL ?? Colonoscopies last in 2018 (x 4) reportedly normal, 2017 for bleeding ?? Reportedly negative celiac serology ?? CTE negative 2013 ?? Trials include Miralax BID (effective, needed to have loose stools to move her bowels), Dulcolax (rescue, just 1 - works but really unpleasant, up all night), Milk of Magnesium 1x/wk, Linzess (gassy- multiple trials, a couple of weeks only 2/2 to pain), Amitiza (nausea, bloated - multiple trials, only a couple of weeks 2/2 to pain), Peppermint capsules (helpful), Amitriptyline, low FODMAP diet (helpful temporarily), gluten-free diet, phazyme & gas-X (not helpful), motegrity (since Sep 2020, no relief) ?? PT eval reported descent of the pelvic floor - limited 3. Abdominal bloating & distention - SIBO? ?? SIBO rx (rifaximin 550mg TID x 14 days on 07/23/2020) x 2 times with (sx returned a few weeks later) but seems to provide relief for about 6 months ?? Gave flagyl 250mg TID - unclear if resonse ?? SIBO testing negative 06/06/2021 4. H pylori s/p abx 5. PUD (NSAIDs) 6. GERD controlled on PPI Interval follow-up Rough time - yesterday woke up out of bed in severe pain, trying anti-gas meds, drinking tea - took until 4pm before she had relief, didn't pass gas or have a BM Trulance - somewhat helped with agonizing double over pain, but a lot more bloating and gas. It has been a little over a month. BMs: No more frequent BMs with Trulance. Dulcolax 1x/wk (doesn't cause pain just churning) - will have a loose BM, up all night, 6 different times, feels immediately bloated afterwards. Unpleasant experience. No BM the next day and is in pain. The subsequent day she can release some gas and can have amovement, can pass a small amount of stool every day. When unable to move her BMs, has more pain. Doesn't feel like she's passing more gas. A lot of bloating and distention - large basket ball. Still taking Miralax 2 capfuls per day Bathroom 100% focus Pelvic floor testing declined; PT eval reported descent of pelvic floor - limited eval - discharged - stretches sometimes help to move stool, laying side to side, child's pose, lying on back, downward dog Nauseated, feeling full. Hx of anxiety - divorce -grinding, clenching teeth, black outs in grocery store - gets panicky, can't drive in car alone. Financial issues. Anxiety is up a bit but much better than it was. Peppermint - now brand - mike, fennel, 362 mg per 2 capsules Therapist gave her a tea to try - clean tox - elder flour and mint, has not tried it yet. Hates mike Nauzene - PRN, deals with it Review of systems: 14-point review of systems [...] BM that is liquid or complete mush. Drinks plenty of water which she knows makes a difference - 64 ounces per day. She is very active which she tries to do - maybe it helps but not instant. Reads a lot about IBS. Recalls a lot of stomach aches as a kid. Pain worsened when she was in her 20s. Went to the ED and told she was constipated based on imaging. Started seeing a wire brush maker then. Does not recall ever having hard [...] evaluation since with no signs of Crohn's. Hormonal fluctuations PMHx ?? Migraine ?? MS not on meds ?? Uveitis ?? Ulcer, gastric - 2/2 to NSAIDs ?? Allergic rhinitis ?? Nasal polyp, removed ?? Insomnia PSHx ?? Remote appendectomy 16 years ago SHx Smoked 3 years quit > 30 years ago. Unable to work 2/2 to severity of sx. FHx DM2, heart disease, mental illness. No [...] - helpful ?? Gluten-free diet ?? Motegrity - partial benefit, some more frequent BMs after being off it for a while (when used in combo with Miralax and dulcolax PRN) ?? Phazyme - no relief ?? Gas-X - no relief ?? Gabapentin - fatigue (x 1 month), listed as allergy ?? Cymbalta - headache, fatigue ?? Dicyclomine - makes tired ?? Iberogast x 1 mo - no change ?? Suppositories not helpful ?? Dulcolax - works but really unpleasant, up all night ?? Cymbalta - tried it for 1.5 weeks, headaches, hangover feeling, fatigued ?? Fluoxetine listed as allergy ?? Has tried buspar in the past for anxiety - fatigued with this also Patient Active Problem List Diagnosis Code ??? Dyspepsia R10.13 ??? Chronic constipation K59.09 Current Outpatient Medications: ??? mirabegron (Myrbetriq) 50 mg Tablet Sustained Release 24 hr, Take 50 mg by mouth daily., Disp: ,Rfl: ??? rizatriptan (MAXALT-REGIONAL RECRUITER) 10 mg Tablet, Rapid Dissolve, Take 10 mg by mouth as needed., Disp: , Rfl: ??? norethindrone-e.estradioL-iron (Jaida 24 Fe) 1 mg-20 mcg(24) /75 mg (4) Tablet, Chewable, Take 1 tablet by mouth daily., Disp: , Rfl: ??? plecanatide (Trulance) 3 mg Tablet, Take 3 mg by mouth daily., Disp: 30 tablet, Rfl: 3 ??? hyoscyamine SL (Levsin SL) 0.125 mg Tablet, Sublingual, Take 1 tablet by mouth every 4 hours as needed for Cramping. Max 6 pills per day., Disp: 30 tablet, Rfl: 3 ??? polyethylene glycoL (Miralax) 17 gram Powder in Packet, Take 17 g by mouth daily., Disp: , Rfl: ??? pantoprazole EC (Protonix) 40 mg Tablet, Delayed Release (E.C.), Take 40 mg by mouth daily., Disp: , Rfl: ??? prucalopride (Motegrity) 2 mg Tablet, Take [...] Use ??? Smoking status: Not on file ??? Smokeless tobacco: Not on file Substance and Sexual Activity ??? Alcohol use: Not on file ??? Drug use: Not on file ??? Sexual activity: Not on file Other Topics Concern ??? Not on file Social History Narrative ??? Not on file Social Determinants of Health Financial Resource Strain: Not on file Food Insecurity: Not on file Transportation Needs: Not on file Physical Activity: Not on file Housing Stability: Not on file No family history on file. Physical Exam: No physical exam performed during this phone/telemedicine visit. PERTINENT LABS AND IMAGING: As noted above Impression: 51 y.o. female with MS not on medications, migraine headaches and uveitis following up for gastroparesis <-> FD with nausea and IBS-C (prolonged absence of BM > 1 week with abd pain & bloating requiring laxatives to trigger a BM which is then loose, not hard). Relates pain to gas, but SIBO testing now negative; likely this is 2/2 to visceral hypersensitivity. 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 Multiple sclerosis can result in dysmotility and affect the pelvic floor muscles and make them more spastic. I still question pelvic floor dysfunction as evaluation seems limited. Consider slow transit. Given degree of pain is on IBS-C spectrum. 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 Has not tolerated neuromodulators, only short trials, 2/2 to side effects. Incomplete, inadequate relief thus far with trials of linzess, amitiza, motegrity and trulance. Dulcolax dose help but response is unpleasant and interferes with sleep. Recommendations ?? Recommend brain-gut behavior therapy groups - this approach can help reduce chronic pain ?? Try Bethany's Tummy Teas; discussed tummy fibers but too $$ ?? Continue peppermint NOW brand 1 twice a day ?? Try reducing Miralax from 2 caps to 1 capful per day which may help reduce bloating ?? Try trulance every other day for a couple of weeks; if this is not effective, try 2 doses at once(6mg) every other day (off label dosing discussed) ?? Dulcolax as needed ?? Recommended pelvic floor testing (declined); PT omar reported descent of pelvic floor which is limited, recommend re-considering [place] [facility] [place] ?? Discussed diaphragmatic breathing again she is very familiar with this If worsening symptoms or no improvement, consider ?? Tegaserod, see: [email or web address]-np-nkwwmbm-dce-[email or web address]-jf-certain-women ?? Resuming motegrity, intermittent dosing ?? Trial of Senna or smooth move tea as she does like teas (instead of dulxolax) ?? Buspar (relaxes the stomach), low dose only 5mg prior to dinner to help you eat more, not epreviously tried for anxiety ?? Domperidone 10 to 20mg prior to dinner meal (from Brittny) to help with gastric emptying ?? Sitz Marker test, currently deferred given inadequate pelvic floor analysis; CAMERON declined ?? Additional anti-emetics (Tigan?) ?? Mirtazipine, would avoid TCA at this time, did not tolerate gabapentin and amitriptyline 2/2 to fatigue Follow-up in: 3 months The risks, benefits and alternatives were discussed with the patient who understands and agrees withabove. The patient was located in [place] at the time of their telemedicine visit. Kim Gonzalez MD 09/26/21 Kim Gonzalez MD Radio Repairerintramural director Section of Gastroenterology and Hepatology [facility] [email or web address] ([email or web address]) documented in this encounter Plan of Treatment Upcoming Encounters Date Type Specialty Care Team Description 11/13/2022 TH Visit (TeleHealth) Gastroenterology Frank Gonzalez MD [facility] Gastroenterology [place], [place] [address] (Wo rk) Scheduled Referrals Name Type Priority Associated Diagnoses Order S chedule Amb Referral to GI Outpatient Referral Routine Irritable bowel Ordered: Behavioral Health syndrome with 2 constipation documented as of this encounter Visit Diagnoses Diagnosis Irritable bowel syndrome with constipati on Irritable bowel syndrome Dyspepsia Dyspepsia and other specified disorders of function of stomach Abdominal bloating Flatulence, eructation, and gas pain documented in this encounter Care Teams Customer Service Receptionist Relationship Specialty Start Date End Date John Rosario APRN PCP - General Family Medicine 07/23/19 [address] [place] [address] documented as of this encounter
--- OUTSIDE RECORDS SUMMARY | 2022-07-07 02:44 | XMS_ITS | Encounter Summary ---
:1970 Author Organization [facility] [place] [address] Care Team Providers Name Role Phone MarleneJohn canseco Xander SUAREZ Primary Care Provider Encounter Details Date Type Department Care Team Description 10/06/2019 Ancillary Procedure [facility] [address] [address] [place], [place] [phone] (Wo rk) Social History Tobacco Use Types Packs/Day Years Used Date Never Assessed Sex Assigned at Date Recorded Not on file documented as of this encounter Plan of Treatment Upcoming Encounters Date Type Specialty Care Team Description 11/13/2022 TH Visit (TeleHealth) Gastroenterology Frank Gonzalez MD [facility] Dr Gastroenterology [place], [place] [address] (Wo rk) documented as of this encounter Procedures Procedure Name Priority Date/Time Associated Comments Diagnosis FILM LIBRARY STORAGE Routine 10/06/2019 12:00 AM Results for this ONLY ULTRASOUND EST procedure ar e in STUDY the results section. documented in this encounter Results Film Library- Storage Only Ultrasound Study (10/06/2019 12:00 AM EST) Specimen (Source) Anatomical Location Collection Method / Collectio n Time Received Time / Laterality Volume Narrative RAD - 02/07/2022 10:17 AM EDT This exam is auto-finalizing. It's purpo se is for storage only. John Rosario APRN IMG FILM LIBRARY ORDERABLES Performing Organization Address City/State/ZIP Code Phon e Number [facility] [place], [place] documented in this encounter Visit Diagnoses Not on filedocumented in this encounter Care Teams Packing Machine Inspector Relationship Specialty Start Date End Date John Rosario APRN PCP - General Family Medicine 07/23/19 [address] [place] [address] documented as of this encounter
--- OUTSIDE RECORDS SUMMARY | 2022-07-07 02:44 | XMS_ITS | Encounter Summary ---
:1970 Author Organization [facility] [place] [address] Care Team Providers Name Role Phone John Rosario APRN Primary Care Provider Reason for Visit Reason Onset Date Comments Reminder Appointment 04/11/2021 Encounter Details Date Type Department Care Team Description 04/11/2021 Telephone Gastroenterology at [facility] [place] Carmen Bennett, Reminder Appointment [facility] [place] [address] GASTROENTEROLOG [phone] Y DEPT Social History Tobacco Use Types Packs/Day Years Used Date Never Assessed Sex Assigned at Date Recorded Not on file documented as of this encounter Miscellaneous Notes Telephone Encounter - Carmne Bennett CMA - 04/11/2021 8:45 AM EDT Called patient to review medications and allergies for their upcoming gastroenterology Type of Appointment: Telehealth appointment. Reach Patient during MA Check: No, Left Message Notes for the provider: Notes for the nurse: documented in this encounter Plan of Treatment Upcoming Encounters Date Type Specialty Care Team Description 11/13/2022 TH Visit (TeleHealth) Gastroenterology Frank Gonzalez MD [facility] Gastroenterology [place], [place] [address] (Wo rk) documented as of this encounter Visit Diagnoses Not on filedocumented in this encounter Care Teams Steam Frame Operator Relationship Specialty Start Date End Date John Rosario APRN PCP - General Family Medicine 07/23/19 [address] [place] [address] documented as of this encounter
--- OUTSIDE RECORDS SUMMARY | 2022-07-07 02:44 | XMS_ITS | Encounter Summary ---
:1970 Author Organization [facility] [place] [address] Care Team Providers Name Role Phone John Rosario PINSETTER MECHANIC HELPER Primary Care Provider Encounter Details Date Type Department Care Team Description 05/15/2022 TH Visit Gastroenterology at [facility] Kim Gonzalez Irritable bowel syndrome wit h constipation; (TeleHealth) [facility] Estevan Cohen [place] [address] [facility] [phone] [place] [address] Social History Tobacco Use Types Packs/Day Years Used Date Never Assessed Sex Assigned at Date Recorded Not on file documented as of this encounter Patient Instructions Patient InstructionsKim Gonzalez MD - 05/15/2022 10:00 AM EDT Recommendations Continue hyoscyamine at night as this helps facilitate the passage of gas Ok to continue Motegrity + Trulance as long as you are able Unfortunately Zelnorm front desk person has actually stopped making this drug just recently (reportedly abusiness decision, not based safety concerns or problems with effectiveness) - I am sorry about this We could certainly to switch back to Motegrity as we discussed as a back-up option Use dulcolax if needed, 1/2 pill (altnerative: senna or smooth move tea) Meet with Dr. Moses. ? Hysterectomy. Try to understand risk of incontinence for you and management options. Continue Miralax Continue peppermint NOW brand 1 twice a day Other options for us to consider Lyrica for uncontrolled pain starting at a very low dose Buspar (relaxes the stomach), low dose only 5mg prior to dinner to help you eat more, not previouslytried for anxiety Domperidone 10 to 20mg prior to dinner meal (from Brittny) to help with gastric emptying Mirtazapine Follow-up in: 6 months - if follow-up is needed sooner than this, recommend visit with associated [facility] provider - please reach out to us and let us know documented in this encounter Progress Notes Kim Gonzalez MD - 05/15/2022 10:[address] [facility] Section of Gastroenterology and Hepatology Follow-up Telemedicine Visit PCP: John Rosario APRN HPI 52 y.o. female following up for IBS-C and gastroparesis. Goals: improved QoL, get back to work GI PROBLEM LIST 1. Gastroparesis <--> functional dyspepsia: NM GE scan abnormal 15% delayed, avoids high fat/high fiber. Symptoms sound more FD-like. Nausea is significant, had vomiting when significantly constipated. ?? Prefers to avoid meds with potential significant side effects like reglan ?? Hates mike ?? Nauzene helps some 2. IBS-C (intense pain when misses one day without a BM), severe, out of work, impact on QoL. Question pelvic floor dysfunction given limited consultation. Consider slow transit. Anxiety. ?? Colonoscopies last in 2018 (x 4) [...] motegrity (since Sep 2020, no relief) ?? Pelvic floor testing declined; PT eval reported descent of pelvic floor - limited eval - discharged - stretches sometimes help to move stool, laying side to side, child's pose, lying on back, downward dog ?? As of Sep 2021: Using trulance, peppermint NOW Brand 1 BID, Miralax 2 capfuls/day, does home exercises and familiar with diaphragmatic breathing 3. Abdominal bloating & distention - SIBO? ?? SIBO rx (rifaximin 550mg TID x 14 days on 07/23/2020) x 2 times with (sx returned a few weeks later) but seems to provide relief for about 6 months ?? Gave flagyl 250mg TID - unclear if response ?? SIBO testing negative 06/06/2021 4. H pylori s/p abx 5. PUD (NSAIDs) 6. GERD controlled on PPI Interval follow-up Has appointment with Dr. Moses in June. Could go 1-2 weeks of doing better - more frequent BMs, persistent discomfort but tolerable. Could then have stretches of 1-2 months of abdominal pain despite moving her bowels - but this was when her hormones were more active. Had a great day yesterday - took 1/2 a dulcolax (it does give her nausea but it is tolerable) - helped her have a BM. Ate and felt good. Ate dinner which is usually when things fall apart. Woke up full of gas which is her normal but it was very uncomfortable. Continues to use Trulance daily - sometimes just has very small BMs, gassy and in pain. Still has some motegrity left (using 2-3x/wk) - 50/50shot if it's going to work. Doesn't take it daily. Takes it when she's going to work (the night before or in the AM). Has 23 pills of motegrity left. Has 3 mo of trulance left. Palpitations checked out ok with PCP. EKG ok. Fewer episodes now. No chest pain. Amitiza didn't make her feel good when she good it. In a financial hole. Does not want to spend more$ for something like this. Hyoscyamine - takes if needed, but does make her tired - uses it at night and helps release gas Really struggling with fatigue and brain fog - exhaustion, constantly - doesn't want to take any medication that has fatigue as a potential side effect at this point Review of systems: 14-point review of systems [...] constipated based on imaging. Started seeing a rougher helper then. Does not recall ever having hard [...] rhinitis ?? Nasal polyp, removed ?? Insomnia ?? Anxiety - has a therapist; -divorce -grinding, clenching teeth, black outs in grocery store - gets panicky, can't drive in car alone. Financial issues. Anxiety is up a bit but much better than it was. PSHx ?? Remote appendectomy 16 years ago SHx Smoked 3 years quit > 30 years ago. Unable to work 2/2 to severity of sx. FHx DM2, heart disease, mental illness. No CRC. Father - stroke, age 68 yo Grandfather - paternal Maternal aunt with Crohn's. Father with GERD [...] - works but really unpleasant, up all night, multiple loose stools ?? Cymbalta - tried it for 1.5 weeks, headaches, hangover feeling, fatigued ?? Fluoxetine listed as allergy ?? Has tried buspar in the past for anxiety - fatigued with this also ?? Trulance - somewhat helped with agonizing double over pain, but a lot more bloating and gas - did not increase frequency of BMs ?? Cognitive Behavioral Therapy for Pain Group - went to 1 session only Patient Active Problem List Diagnosis Code ??? Dyspepsia R10.13 ??? Chronic constipation K59.09 ??? Adjustment disorder F43.20 ??? Irritable bowel syndrome with constipation K58.1 Current Outpatient Medications: ??? hyoscyamine SL (Levsin SL) 0.125 mg Tablet, Sublingual, Take 1 tablet by mouth every 4 hours as needed for Cramping. Max 6 pills per day., Disp: 30 tablet, Rfl: 3 ??? plecanatide (Trulance) 3 mg Tablet, Take 1 tablet by mouth daily., Disp: 90 tablet, Rfl: 3 ??? mirabegron (Myrbetriq) 50 mg Tablet Sustained Release 24 hr, Take 50 mg by mouth daily., Disp: ,Rfl: ??? rizatriptan (MAXALT-SAP SPECIALIST) 10 mg Tablet, Rapid Dissolve, Take 10 [...] LABS AND IMAGING: As noted above Impression: 52 y.o. female with MS not on medications, migraine headaches and uveitis following up for gastroparesis <-> FD with nausea and IBS-C (prolonged absence of BM > 1 week with abd pain & bloating requiring laxatives to trigger a BM which is then loose, not hard). Still question pelvic floor dysfunction as evaluation seems limited. Consider slow transit. Relates pain to gas, but SIBO testing now negative; likely this is 2/2 to visceral hypersensitivity. 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 Multiple sclerosis can result in dysmotility and affect the pelvic floor muscles and make them more spastic. 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 Has not tolerated neuromodulators, only short trials, 2/2 to side effects. Incomplete, inadequate relief thus far with trials of linzess, amitiza, motegrity and trulance. Dulcolax dose help but response is unpleasant and interferes with sleep. She engaged in just 1 CBT for chronic pain group session. Ongoing symptoms. She has found some effective strategies to manage her constipation and has some good days, but abdominal pain continues to impact her QoL. We discussed risks/benefits of Tegaserod (Zelnorm). Unfortunately, the front desk person will no longer be producing this drug in the [place] (reportedly a business decision, not based on efficacy or safety), so this is not an option. Recommendations ?? Continue hyoscyamine at night as this helps facilitate the passage of gas ?? Ok to continue Motegrity + Trulance as long as you are able ?? Unfortunately Zelnorm front desk person has actually stopped making this drug just recently (reportedly a business decision, not based safety concerns or problems with effectiveness) ?? We could certainly to switch back to Motegrity as we discussed as a back-up option ?? Use dulcolax if needed, 1/2 pill (altnerative: senna or smooth move tea) ?? Meet with Dr. Moses. ? Hysterectomy. Try to understand risk of incontinence for you and management options. ?? Continue Miralax ?? Continue peppermint NOW brand 1 twice a day Other options diagnostic/therapeutic for us to consider ?? Lyrica for uncontrolled pain starting at a very low dose - discussed today; she wants to hold off2/2 to fatigue ?? Buspar (relaxes the stomach), low dose only 5mg prior to dinner to help you eat more, not previously tried for anxiety ?? Domperidone 10 to 20mg prior to dinner meal (from Brittny) to help with gastric emptying ?? Mirtazipine;' would avoid TCA at this time, did not tolerate gabapentin and amitriptyline 2/2 to fatigue ?? Sitz Marker test, currently deferred given inadequate pelvic floor analysis; CAMERON declined ?? Bethany's Tummy Teas (discussed) - cost ; discussed tummy fibers but too $$ ?? Discussed diaphragmatic breathing again she is very familiar with this ?? Recommended pelvic floor testing (declined); PT omar reported descent of pelvic floor which is limited, recommend re-considering evaluation at [facility] Follow-up in: 6 months - if follow-up is needed sooner than this, recommend visit with associated [facility] provider The patient was located in [place] at the time of their visit. TIME SPENT WITH PATIENT Time spent face to face with patient on the day of the encounter: 30 minutes The risks, benefits and alternatives were discussed with the patient who understands and agrees withabove. Kim Gonzalez MD 05/15/22 Kim Gonzalez MD Screw Downassistant producer Section of Gastroenterology and Hepatology [facility] [email or web address] ([email or web address]) documented in this encounter Plan of Treatment Upcoming Encounters Date Type Specialty Care Team Description 11/13/2022 TH Visit (TeleHealth) Gastroenterology Frank Gonzalez MD [facility] Dr Gastroenterology [place], [place] [address] (Wo rk) documented as of this encounter Visit Diagnoses Diagnosis Irritable bowel syndrome with constipati on Irritable bowel syndrome Functional dyspepsia Dyspepsia and other specified disorders of function of stomach documented in this encounter Care Teams Theater Manager Relationship Specialty Start Date End Date John Rosario APRN PCP - General Family Medicine 07/23/19 [address] [place] [address] documented as of this encounter
--- OUTSIDE RECORDS SUMMARY | 2022-07-07 02:44 | XMS_ITS | Encounter Summary ---
:1970 Author Organization [facility] [place] [address] Care Team Providers Name Role Phone John Rosario APRN Primary Care Provider Reason for Visit Reason Onset Date Comments Reminder Appointment 11/30/2020 Encounter Details Date Type Department Care Team Description 11/30/2020 Telephone Gastroenterology at [facility] Alida Fenton Appointment [facility] [place] [address] Social History Tobacco Use Types Packs/Day Years Used Date Never Assessed Sex Assigned at Date Recorded Not on file documented as of this encounter Miscellaneous Notes Telephone Encounter - Macarena Fenton LNA - 11/30/2020 8:46 AM EDT Called patient to review medications and allergies for their upcoming gastroenterology Type of Appointment: Telehealth appointment. Reach Patient during MA Check: No, Left Message Notes for the provider: Notes for the nurse: documented in this encounter Plan of Treatment Upcoming Encounters Date Type Specialty Care Team Description 11/13/2022 TH Visit (TeleHealth) Gastroenterology Frank Gonzalez MD [facility] er Gastroenterology [place], [place] [address] (Wo rk) documented as of this encounter Visit Diagnoses Not on filedocumented in this encounter Care Teams Spectacle Truer Relationship Specialty Start Date End Date John Rosario APRN PCP - General Family Medicine 07/23/19 [address] [place] [address] documented as of this encounter
--- OUTSIDE RECORDS SUMMARY | 2022-07-07 02:44 | XMS_ITS | Encounter Summary ---
:1970 Author Organization [facility] [place] [address] Care Team Providers Name Role Phone Marlene John Xander SUAREZ Primary Care Provider Encounter Details Date Type Department Care Team Description 06/04/2020 Ancillary Procedure [facility] [address] [address] [place], [place] [phone] (Wo rk) Social History Tobacco Use Types Packs/Day Years Used Date Never Assessed Sex Assigned at Date Recorded Not on file documented as of this encounter Plan of Treatment Upcoming Encounters Date Type Specialty Care Team Description 11/13/2022 TH Visit (TeleHealth) Gastroenterology Frank Gonzalez MD [facility] Dr Gastroenterology [place], [place] [address] (Wo rk) documented as of this encounter Procedures Procedure Name Priority Date/Time Associated Comments Diagnosis FILM LIBRARY STORAGE Routine 06/04/2020 12:00 AM Results for this ONLY ULTRASOUND EDT procedure ar e in STUDY the results section. documented in this encounter Results Film Library- Storage Only Ultrasound Study (06/04/2020 12:00 AM EDT) Specimen (Source) Anatomical Location Collection Method / Collectio n Time Received Time / Laterality Volume Narrative [facility] - 02/07/2022 10:10 AM EDT This exam is auto-finalizing. It's purpo se is for storage only. John Rosario APRN IMG FILM LIBRARY ORDERABLES Performing Organization Address City/State/ZIP Code Phon e Number [facility] [place], [place] documented in this encounter Visit Diagnoses Not on filedocumented in this encounter Care Teams Delivery Driver/Customer Service Relationship Specialty Start Date End Date John Rosario APRN PCP - General Family Medicine 07/23/19 [address] [place] [address] documented as of this encounter
--- OUTSIDE RECORDS SUMMARY | 2022-07-07 02:44 | XMS_ITS | Encounter Summary ---
:1970 Author Organization [facility] [place] [address] Care Team Providers Name Role Phone John Rosario ERICK Primary Care Provider Reason for Referral Consultation (Routine) - Closed Specialty Diagnoses / Procedures Referred By Contact Refer red To Contact Obstetrics and Diagnoses Urinary incontinence, unspecified type Kim Gonzalez MD Cooper, Anne C, MD Gynecology [facility] [address] [place] [address] Referral ID Status Reason Start Date Expiration Date Visits V isits Requested Authorized [id number] Closed Consult, 01/18/2022 01/18/2023 1 1 Test & Treat Encounter Details Date Type Department Care Team Description 01/18/2022 Orders Only Gastroenterology at [facility] Kim Gonzalez [facility] [place]evan [place] [address] [facility] unspecified type [phone] [place] [address] Social History Tobacco Use Types Packs/Day Years Used Date Never Assessed Sex Assigned at Date Recorded Not on file documented as of this encounter Plan of Treatment Upcoming Encounters Date Type Specialty Care Team Description 11/13/2022 TH Visit (TeleHealth) Gastroenterology Frank Gonzalez MD [facility] Gastroenterology [place], [place] [address] (Wo rk) Scheduled Referrals Name Type Priority Associated Order Schedule Diagnoses Referral to Outpatient Referral Routine Urinary Ordered: Urogynecology incontinence, 01/18/2022 unspecified type documented as of this encounter Visit Diagnoses Diagnosis Urinary incontinence, unspecified type documented in this encounter Care Teams Assistant Men'S Soccer Coach Relationship Specialty Start Date End Date John Rosario APRN PCP - General Family Medicine 07/23/19 [address] [place] [address] documented as of this encounter
--- OUTSIDE RECORDS SUMMARY | 2022-07-07 02:44 | XMS_ITS | Encounter Summary ---
:1970 Author Organization [facility] [place] [address] Care Team Providers Name Role Phone John Rosario APRN Primary Care Provider Reason for Visit Reason Onset Date Comments Reminder Appointment 01/09/2022 Encounter Details Date Type Department Care Team Description 01/09/2022 Telephone Gastroenterology at [facility] Alida Fenton Appointment [facility] [place] [address] Social History Tobacco Use Types Packs/Day Years Used Date Never Assessed Sex Assigned at Date Recorded Not on file documented as of this encounter Miscellaneous Notes Telephone Encounter - Macarena Fenton LNA - 01/09/2022 9:06 AM EDT Called patient to review medications and allergies for their upcoming gastroenterology Type of Appointment: Telehealth appointment. Reach Patient during MA Check: Yes Notes for the provider: Notes for the nurse: documented in this encounter Plan of Treatment Upcoming Encounters Date Type Specialty Care Team Description 11/13/2022 TH Visit (TeleHealth) Gastroenterology Frank Gonzalez MD [facility] er Gastroenterology [place], [place] [address] (Wo rk) documented as of this encounter Visit Diagnoses Not on filedocumented in this encounter Care Teams Possum Trapper Relationship Specialty Start Date End Date John Rosario APRN PCP - General Family Medicine 07/23/19 [address] [place] [address] documented as of this encounter
--- OUTSIDE RECORDS SUMMARY | 2022-07-07 02:44 | XMS_ITS | Encounter Summary ---
:1970 Author Organization [facility] [place] [address] Care Team Providers Name Role Phone John Rosario ERICK Primary Care Provider Encounter Details Date Type Department Care Team Description 07/18/2021 TH Visit Gastroenterology at [facility] Kim Gonzalez Irritable bowel syndrome wit h constipation; (TeleHealth) [facility] Estevan [place] [address] [facility] [phone] [place] [address] Social History Tobacco Use Types Packs/Day Years Used Date Never Assessed Sex Assigned at Date Recorded Not on file documented as of this encounter Patient Instructions Patient InstructionsKim Gonzalez MD - 07/18/2021 10:00 AM EST Recommendations ?? Continue motegrity with Miralax and dulcolax as needed until able to get Trulance. If you get into trouble with worsening constipation and pain, Miralax can be increased further (add 1 to 2 extra capfuls per day). ?? Then start Trulance 3mg (1 pill) per day with Miralax twice a day - also ok to add dulcolax if really needed ?? Follow-up with pelvic floor therapist - continue to work towards rectal exam ?? Continue peppermint 1 twice a day ?? Eat small frequent meals, shakes ?? Consider to try Buspar as next step (relaxes the stomach), low dose only 5mg prior to dinner to help you eat more ?? Consider domperidone 10 to 20mg prior to dinner meal (from Brittny) which is a medication that canhelp the stomach empty. We could first try a short course of a medication called Reglan which can speed up the stomach (used for gastroparesis and nausea/vomiting in migraines). Reglan has the risk of tardive dyskinesia (abnormal movements) that can in some cases be permanent. This is typically seen with high doses over longer periods of time. A short trial is generally safer and we could do this. IfReglan helps, then domperidone would be more likely to help and would be worth pursuing from Brittny. ?? We have a GI-focused behavioral psychologist in our GI clinic who is an expert in sleep and pain specifically as it pertains to GI problems. She works short-term with individuals who have GI problems. She does cognitive behavioral therapy and hypnosis depending on the person. She does not prescribemedications. Given the way the brain is connected to the gut, this could be a very helpful approach for you in combination with what we are doing and I realized we have not discussed it. Her wait list is long (over 6 months) but I could certainly refer you - just let me know. See this link: [email or web address] ?? Anorectal manometry as scheduled in March 2022 See information abdomino-phrenic & pelvic floor dyssynergia that can contribute to abdominal distention (and constipation) ??? https://www.iffgd.org/commentary/vddckcxafwkbt-nzxexcmdpe-qs-disorders.html Diaphragmatic breathing - start doing this several times per day ??? https://my.[facility].org/health/articles/1165-pdbycaorbjgox-bkghbqhra ??? https://www.uofealth.org/conditions-treatments/fvtjjrokybzdm-pfglsornp-gq-pepe ents Follow-up in: September, will add to 11:30am slot on Sunday documented in this encounter Progress Notes Kim Gonzalez MD - 07/18/2021 10:00 AM EST [facility] Section of Gastroenterology and Hepatology Follow-up [...] provide relief for about 6 months ?? SIBO testing negative 06/06/2021 4. H pylori s/p abx 5. PUD (NSAIDs) 6. GERD controlled on PPI Interval follow-up Still taking Miralax twice a day Dulcolax (1 or 1/2 ) as a back-up every 2-3 days - stopped working, had to take an extra dose - fulldose will cause her to be up all night long with small frequent BMs and cramps The last 2.5 weeks went back on motegrity - helped her to have at least 1 BM/day in the morning usually - feels better enough to get through the day or sometimes just has a 10 second relief, feels fullof gas Took a dulcolax yesterday morning and it did help Dulcolax has also caused intense stomach pain, was taking naproxen at the same time - this has resolved Terrible stomach pain after eating - can't eat and go places - feels her stomach filling up like a balloon, hard and uncomfortable Can't work - needs to get back to work Can't have normal days, interferes with function Has had N/V when severely constipated PT - manipulation to the stomach, not comfortable with an exam yet but working towards this Cytalyaalta - tried it for 1.5 weeks, headaches, hangover feeling, fatigued Has tried buspar in the past for anxiety - fatigued with this also Peppermint 1 in AM - definitely helps as a base, takes in AM and before dinner Review of systems: 14-point review of systems [...] constipated based on imaging. Started seeing a generator repairer then. Does not recall ever having hard [...] ?? Gabapentin - fatigue (x 1 month) ?? Cymbalta - headache, fatigue ?? Dicyclomine - makes tired ?? Iberogast x 1 mo - no change ?? Suppositories not helpful Patient Active Problem List Diagnosis Code ??? [...] floor muscles and make them more spastic. Functional dyspepsia (FD) <-- gastroparesis; symptoms sound more FD-like. Nausea is significant, had vomiting when significantly constipated. Constipation defined by the prolonged absence of bowel movements (> 1 week) associated with abdominal pain and bloating, requiring the use of laxatives to trigger any bowel movement (subsequently loose stool, not hard). Question pelvic floor dysfunction (has not been evaluated or ruled out) or slowtransit - MS may cause both. Given degree of pain is on IBS-C spectrum, significant visceral hypersensitivity. Prior eval for IBD was negative. Relates pain to gas - SIBO testing negative - I think shehas a normal amount of gas but pain is driven by visceral hypersensitivity. 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 Consider dysmotility with high fecal load. Mild improvement in symptom exacerbation being back on Motegrity (with dulcolax and Miralax) but symptom relief is inadequate and QoL is poor. Secretagogues have seemed to worsen symptoms thus far and she has not tolerated neuromodulators 2/2 to side effects - she clearly expresses that she can only to lerate short trials of medications if they cause her to feel any worse - this is understandable but challenging. I am hopeful that once she is able to work more completely with her PT this will providesome answers. Recommendations ?? Continue motegrity with Miralax and dulcolax as needed until able to get Trulance. If you get into trouble with worsening constipation and pain, Miralax can be increased further (add 1 to 2 extra capfuls per day). ?? Then start Trulance 3mg (1 pill) per day with Miralax twice a day - also ok to add dulcolax if really needed ?? Follow-up with pelvic floor therapist - continue to work towards rectal exam ?? Continue peppermint 1 twice a day ?? Eat small frequent meals, shakes ?? Consider to try Buspar as next step (relaxes the stomach), low dose only 5mg prior to dinner to help you eat more ?? Consider domperidone 10 to 20mg prior to dinner meal (from Brittny) which is a medication that canhelp the stomach empty. We could first try a short course of a medication called Reglan which can speed up the stomach. Reglan has the risk of tardive dyskinesia (abnormal movements) that can in some cases be permanent. This is typically seen with high doses over longer periods of time. A short trial is generally safer and we could do this. If Reglan helps, then domperidone would be more likely to help and would be worth pursuing from Brittny. ?? We have a GI-focused behavioral psychologist in our GI clinic who is an expert in sleep and pain specifically as it pertains to GI problems. She works short-term with individuals who have GI problems. She does cognitive behavioral therapy and hypnosis depending on the person. She does not prescribemedications. Given the way the brain is connected to the gut, this could be a very helpful approach for you in combination with what we are doing and I realized we have not discussed it. Her wait list is long (over 6 months) but I could certainly refer you - just let me know. See this link: [email or web address]. Also: https://aboutibs .org/treatment/psychological-treatments/biabrpsob-vopkfwfcrz-efnnygu/ ?? Other: Tergaserod, re-trial of Linzess ?? Anorectal manometry as scheduled in March 2022 ?? Sitz Marker to assess the speed of your colon only after pelvic floor analysis; SMARTPILL declined ?? Consider additional anti-emetics (Tigan?); consider mirtazipine, would avoid TCA at this time, did not tolerate gabapentin and amitriptyline 2/2 to fatigue See information abdomino-phrenic & pelvic floor dyssynergia that can contribute to abdominal distention (and constipation) ??? https://www.iffgd.org/commentary/owqkbmqzyvrmv-lqnzmtamgo-vn-disorders.html Diaphragmatic breathing - start doing this several times per day ??? https://my.[facility].org/health/articles/3706-bggxzklqsccic-kwovtmepb ??? https://www.[facility]fealth.org/conditions-treatments/xtoymvhhapicr-lkubshzqq-hg-pepe ents Follow-up in: September, will add to 11:30am slot on Sunday The risks, benefits and alternatives were discussed with the patient who understands and agrees withabove. The patient was located in [place] at the time of their telemedicine visit. Kim Gonzalez MD 07/18/21 Kim Gonzalez MD Dairy Nutritionistsales director Section of Gastroenterology and Hepatology [facility] [email or web address] (p) documented in this encounter Plan of Treatment Upcoming Encounters Date Type Specialty Care Team Description 11/13/2022 TH Visit (TeleHealth) Gastroenterology Frank Gonzalez MD [facility] Dr Gastroenterology [place], [place] [address] (Wo rk) documented as of this encounter Visit Diagnoses Diagnosis Irritable bowel syndrome with constipati on Irritable bowel syndrome Dyspepsia Dyspepsia and other specified disorders of function of stomach documented in this encounter Care Teams Marketing Recruiter Relationship Specialty Start Date End Date John Rosario APRN PCP - General Family Medicine 07/23/19 [address] [place] [address] documented as of this encounter
--- OUTSIDE RECORDS SUMMARY | 2022-07-07 02:44 | XMS_ITS | Encounter Summary ---
:1970 Author Organization [facility] [place] [address] Care Team Providers Name Role Phone John Rosario OUTSIDE MEDICAL SALES REPRESENTATIVE Primary Care Provider Encounter Details Date Type Department Care Team Description 01/09/2022 TH Visit [place] [facility] Kim Gonzalez Irritable bowel syndrome wit h constipation; (TeleHealth) [facility] Estevan Cohen MD Dyspepsia; [place] [address] [facility] Abdominal bloating [phone] [place] [address] Social History Tobacco Use Types Packs/Day Years Used Date Never Assessed Sex Assigned at Date Recorded Not on file documented as of this encounter Patient Instructions Patient InstructionsKim Gonzalez MD - 01/10/2022 12:09 PM EDT Recommendations Please get palpitations evaluated by your PCP and get screened for other cardiovascular risk factors If no worrisome cardiac findings, would recommend considering Tegaserod (Zelnorm). See this website about it: https://www.Evotecrm.com/ Ok to continue Motegrity + Trulance - would try to stretch to every other day Alternatives: Consider trying to add Amitiza (the generic lubiprostone is available on Good rx and every other day dosing would be about $40 a month - we could try a low dose to minimize potential sideeffects like nausea) to Motegrity (prescribed) Dulcolax if needed (altnerative: senna or smooth move tea) Agree with consideration of hysterectomy. Try to understand risk of incontinence for you and management options. Urogynecology - I would suggest Dr. Nicole Moses (see: https://www.[facility]/findaprovider/team?ngbiBn=240) Continue Cognitive Behavioral Therapy for Pain Group which can help with management of chronic pain Continue Miralax Continue peppermint NOW brand 1 twice a day Follow-up in 4 months documented in this encounter Progress Notes Kim Gonzalez MD - 01/09/2022 10:00 AM EDT [facility] Section of Gastroenterology and Hepatology Follow-up Telemedicine [...] 6. GERD controlled on PPI Interval follow-up Symptoms are exactly the same Tried adjusting Miralax and Trulance without a change Tried 1 trulance with motegrity at night and that really worked - normal BMs on a regular basis and NOT in pain The last few days have been horrible for her - pain Did go back to work - 3 days a week - been horrible because of the degree of pain, trying to pretendit's ok Daily, small BMs - avoiding dulcolax because they were making her feel so sick Feels like filling up with air after a BM Hyoscyamine - took 3 the day she had severe pain - no relief just fatigue Palpitations, new; worried about father's family history About 45 pills of motegrity left Just opened last 30 days of trulance Menstrual cycle right now - really exacerbating gut sx - answer was a hysterectomy - hesitant about this Worried about urinary incontinence with this Review of systems: 14-point review of systems [...] constipated based on imaging. Started seeing a qualifications examiner then. Does not recall ever having hard [...] - did not increase frequency of BMs Patient Active Problem List Diagnosis Code ??? Dyspepsia R10.13 ??? Chronic constipation K59.09 ??? Adjustment disorder F43.20 Current Outpatient Medications: ??? hyoscyamine SL (Levsin [...] by mouth daily., Disp: ,Rfl: ??? rizatriptan (MAXALT-HOSE TENDER) 10 mg Tablet, Rapid Dissolve, Take 10 [...] response is unpleasant and interferes with sleep. Still struggling a great deal with degree of pain in the context of dysmotility. Great response fromMotegrity and Trulance combined (neither alone is sufficiently effective) but will not be able to get this covered/cannot afford out of pocket. Limited medication options. Discussed Tegaserod which I think could really help her - she is worried about the cardiac risks given her family history despite the FDA review and updated guidance. She does endorse some palpitations which should get evaluated before we could try this. She does notice a very strong relationship between her menstrual periods and her GI symptoms and finds these are the most intolerable periods. She has contemplated hysterectomy but is very concerned about the risk of urinary incontinence given pre-existing issues with MS. Recommendations ?? Please get palpitations evaluated by your PCP and get screened for other cardiovascular risk factors ?? If no worrisome cardiac findings, would recommend considering Tegaserod (Zelnorm). See this website about it: https://www.[employer].OurHealthMate/ ?? Ok to continue Motegrity + Trulance - would try to stretch to every other day ?? Alternatives: Consider trying to add Amitiza (the generic lubiprostone is available on Good rx and every other day dosing would be about $40 a month - we could try a low dose to minimize potential side effects like nausea) to Motegrity (prescribed) ?? Dulcolax if needed (altnerative: senna or smooth move tea) ?? Agree with consideration of hysterectomy. Try to understand risk of incontinence for you and management options. Urogynecology - I would suggest Dr. Nicole Moses (see: https://www.[facility]. org/findaprovider/team?tevtLg=832) ?? Continue Cognitive Behavioral Therapy for Pain Group which can help with management of chronic pain ?? Continue Miralax ?? Continue peppermint NOW brand 1 twice a day Other options diagnostic/therapeutic for us to consider ?? Tegaserod as above, see: https://www.[facility].OurHealthMate/news/gastroenterology/15856986/obb-hnswgwya-wwqwuz vrqmphty-cn-hamwukl-quz-hahc-yv-certain-women ?? Trial of Senna or smooth move tea as she does like teas (instead of dulcolax) ?? Buspar (relaxes the stomach), low dose only 5mg prior to dinner to help you eat more, not epreviously tried for anxiety ?? Domperidone 10 to 20mg prior to dinner meal (from Brittny) to help with gastric emptying ?? Sitz Marker test, currently deferred given inadequate pelvic floor analysis; SMARTPILL declined ?? Additional anti-emetics (Tigan?) ?? Mirtazipine, would avoid TCA at this time, did not tolerate gabapentin and amitriptyline 2/2 to fatigue ?? Bethany's Tummy Teas (discussed) - cost ; discussed tummy fibers but too $$ ?? Discussed diaphragmatic breathing again she is very familiar with this ?? Recommended pelvic floor testing (declined); PT eval reported descent of pelvic floor which is limited, recommend re-considering evaluation at [facility] Follow-up in: 4 months The patient was located in [place] at the time of their visit. TIME SPENT WITH PATIENT Time spent face to face with patient on the day of the encounter: 30 minutes The risks, benefits and alternatives were discussed with the patient who understands and agrees withabove. Kim Gonzalez MD 01/08/22 Kim Gonzalez MD Administrative Executivemanager economic Section of Gastroenterology and Hepatology [facility] [email or web address] (p) documented in this encounter Plan of Treatment Upcoming Encounters Date Type Specialty Care Team Description 11/13/2022 TH Visit (TeleHealth) Gastroenterology Frank Gonzalez MD [facility] Gastroenterology [place], [place] [address] (Wo rk) documented as of this encounter Visit Diagnoses Diagnosis Irritable bowel syndrome with constipati on Irritable bowel syndrome Dyspepsia Dyspepsia and other specified disorders of function of stomach Abdominal bloating Flatulence, eructation, and gas pain documented in this encounter Care Teams Clinical Project Assistant Relationship Specialty Start Date End Date John Rosario APRN PCP - General Family Medicine 07/23/19 [address] [place] [address] documented as of this encounter
--- OUTSIDE RECORDS SUMMARY | 2022-07-07 02:44 | XMS_ITS | Encounter Summary ---
:1970 Author Organization [facility] [place] [address] Care Team Providers Name Role Phone John Rosario APRN Primary Care Provider Encounter Details Date Type Department Care Team Description 06/30/2022 Travel Social History Tobacco Use Types Packs/Day Years Used Date Former Smoker Smokeless Tobacco: Never Used Alcohol Use Standard Drinks/Week Comments Not Currently 0 (1 standard drink = 0.6 oz pure alcoho l) Sex Assigned at Date Recorded Not on file documented as of this encounter Plan of Treatment Upcoming Encounters Date Type Specialty Care Team Description 11/13/2022 TH Visit (TeleHealth) Gastroenterology Frank Gonzalez MD [facility] Dr Gastroenterology [place], [place] [address] (Wo rk) documented as of this encounter Visit Diagnoses Not on filedocumented in this encounter Care Teams Freight Brakeman Relationship Specialty Start Date End Date John Rosario APRN PCP - General Family Medicine 07/23/19 [address] [place], [place] [id number] documented as of this encounter
--- OUTSIDE RECORDS SUMMARY | 2022-07-07 02:44 | XMS_ITS | Encounter Summary ---
:1970 Author Organization [facility] [place] [address] Care Team Providers Name Role Phone John Rosario ERICK Primary Care Provider Encounter Details Date Type Department Care Team Description 09/12/2021 Telephone Gastroenterology at [facility] [place] [address] Social History Tobacco Use Types Packs/Day Years Used Date Never Assessed Sex Assigned at Date Recorded Not on file documented as of this encounter Miscellaneous Notes Telephone Encounter - Dinh Ochoa - 09/12/2021 2:41 PM EST Inbound/Outbound: Inbound Spoke to Patient/Left Message: spoke to patient Notes: Inbound call from patient regarding ARM testing. Patient states testing is no longer needed and does not with to reschedule. Closing referral. Telephone Encounter - Dinh Ochoa - 09/12/2021 12:34 PM EST Inbound/Outbound: Outbound Spoke to Patient/Left Message: Left message Notes: Outbound call to patient to reschedule upcoming motility test on 03/10/22 due to lab schedule change.Left message asking for patient to call back to reschedule. Return calls can be handled by: Motility Lab Contact Lens Assistant documented in this encounter Plan of Treatment Upcoming Encounters Date Type Specialty Care Team Description 11/13/2022 TH Visit (TeleHealth) Gastroenterology Frank Gonzalez MD [facility] Gastroenterology [place], [place] [address] (Wo rk) documented as of this encounter Visit Diagnoses Not on filedocumented in this encounter Care Teams Lawn Mower Repairer Relationship Specialty Start Date End Date John Rosario APRN PCP - General Family Medicine 07/23/19 [address] [place] [address] documented as of this encounter
--- OUTSIDE RECORDS SUMMARY | 2022-07-07 02:44 | XMS_ITS | Encounter Summary ---
:1970 Author Organization [facility] [place] [address] Care Team Providers Name Role Phone John Rosario APRN Primary Care Provider Encounter Details Date Type Department Care Team Description 12/07/2020 Telephone [place] [facility] [place] [address] Social History Tobacco Use Types Packs/Day Years Used Date Never Assessed Sex Assigned at Date Recorded Not on file documented as of this encounter Miscellaneous Notes Telephone Encounter - Brody Key RN - 12/07/2020 1:52 PM EDT Yumi calls for PA update. Marshall denied by her insurance. LM for her that we have a message out to Dr. Gonzalez to see if she wants to try to prescribe an alternative or appeal insurance. documented in this encounter Plan of Treatment Upcoming Encounters Date Type Specialty Care Team Description 11/13/2022 TH Visit (TeleHealth) Gastroenterology Frank Gonzalez MD [facility] Dr Gastroenterology [place], [place] [address] (Wo rk) documented as of this encounter Visit Diagnoses Not on filedocumented in this encounter Care Teams Director Oracle Relationship Specialty Start Date End Date John Rosario APRN PCP - General Family Medicine 07/23/19 [address] [place] [address] documented as of this encounter
--- OUTSIDE RECORDS SUMMARY | 2022-07-07 02:44 | XMS_ITS | Encounter Summary ---
:1970 Author Organization [facility] [place] [address] Care Team Providers Name Role Phone John Rosario APRN Primary Care Provider Encounter Details Date Type Department Care Team Description 04/26/2021 Telephone [place] [facility] [place] [address] Social History Tobacco Use Types Packs/Day Years Used Date Never Assessed Sex Assigned at Date Recorded Not on file documented as of this encounter Miscellaneous Notes Telephone Encounter - Dinh Ochoa - 04/26/2021 1:27 PM EDT BREATH TEST CLINICAL SAFETY CHECKLIST 04/26/2021 Dinh Hoeault Yumi Buck [address] [facility] [id number] : 1970 REFERRING PROVIDER: Kim Gonzalez PRIMARY CARE PROVIDER: John Rosario APRN PRIMARY SYMPTOM (DIARRHEA, ABDOMINAL PAIN, ETC): bloating SUGAR(S) REQUESTED (lactose, lactulose, glucose, fructose): lactulose If a provider requests lactose or fructose breath testing: Do we have documentation of previous lactulose or glucose breath testing? IF YES: ok to schedule IF NO: The provider must submit an additional request for a lactulose or glucose breath test. DO NOTSCHEDULE either breath test, until this request is submitted. Separate breath test appointments are needed to test multiple sugars. If a patient needs more than one breath test, the breath tests must be scheduled on separate days inany order. QUESTIONS FOR THE PATIENT DIABETIC? No Diabetic patients should speak with their PCP or managing provider at least two weeks before the test to ask what medication or insulin adjustments are needed for testing. Patients fast 12 hours beforetesting and the test lasts 2-3 hours. DID THE PATIENT HAVE A COLONOSCOPY OR ANTIBIOTICS IN THE LAST 4 WEEKS? No If yes, the breath test must be scheduled at least four weeks after colonoscopy or last antibiotic dose. DOES THE PATIENT USE A WHEELCHAIR? No VERBAL PATIENT INSTRUCTIONS The written instructions are very important for the patient to review and contain specific dietary and medication instructions prior to testing. These instructions will give the patient the most accurate test result. The patient should speak with their referring provider or our office if they have any questions. APPOINTMENT NOTES TEMPLATE lactulose breath test, symptom: bloating, RMD: Kim Gonzalez, PCP: John Rosario APRN, jacquelynchair: No Please copy/paste the template above for each breath test that is needed. documented in this encounter Plan of Treatment Upcoming Encounters Date Type Specialty Care Team Description 11/13/2022 TH Visit (TeleHealth) Gastroenterology Frank Gonzalez MD [facility] Gastroenterology [place], [place] [address] (Wo rk) documented as of this encounter Visit Diagnoses Not on filedocumented in this encounter Care Teams Software Test Analyst Relationship Specialty Start Date End Date John Rosario APRN PCP - General Family Medicine 07/23/19 [address] [place] [address] documented as of this encounter
--- OUTSIDE RECORDS SUMMARY | 2022-07-07 02:44 | XMS_ITS | Encounter Summary ---
:1970 Author Organization [facility] [place] [address] Care Team Providers Name Role Phone John Rosario APRN Primary Care Provider Encounter Details Date Type Department Care Team Description 06/15/2021 Telephone [place] [facility] [place] [address] Social History Tobacco Use Types Packs/Day Years Used Date Never Assessed Sex Assigned at Date Recorded Not on file documented as of this encounter Miscellaneous Notes Telephone Encounter - Nara Colon - 06/15/2021 4:45 PM EDT Left Message. Need to schedule appointment with Dr. Gonzalez Next available documented in this encounter Plan of Treatment Upcoming Encounters Date Type Specialty Care Team Description 11/13/2022 TH Visit (TeleHealth) Gastroenterology Frank Gonzalez MD [facility] Gastroenterology [place], [place] [address] (Wo rk) documented as of this encounter Visit Diagnoses Not on filedocumented in this encounter Care Teams Legal Referee Relationship Specialty Start Date End Date John Rosario APRN PCP - General Family Medicine 07/23/19 [address] [place], [place] [id number] documented as of this encounter
--- OUTSIDE RECORDS SUMMARY | 2022-07-07 02:44 | XMS_ITS | Encounter Summary ---
:1970 Author Organization [place] [address] Care Team Providers Name Role Phone John Rosario ERICK Primary Care Provider Reason for Visit Reason Onset Date Comments Prior Authorization 07/26/2021 Encounter Details Date Type Department Care Team Description 07/26/2021 Telephone [place] [facility] [place] Prior Authorization [facility] [place] [address] Social History Tobacco Use Types Packs/Day Years Used Date Never Assessed Sex Assigned at Date Recorded Not on file documented as of this encounter Miscellaneous Notes Telephone Encounter - Macarena Fenton LNA - 07/26/2021 9:01 AM EST Medication Prior Authorization [facility] Gastroenterology / [place] [address] ?? Subscriber Insurance: [place] Medicaid ?? Phone: Fax: ? Physician: Kim Gonzalez ? Return ?? Pharmacy: [facility] ?? Fax: ?? Medication Requested: Trulance ?? Strength: 3mg Frequency: Daily ?? Disp.: 30 Refills: 3 ?? Currently taking: ?? Diagnosis for this medication: IBS-C ?? ICD-10 code: K58.1 ?? Prior medications trialed in this patient: Miralax, Milk of Magnesium, Linzess, Amitiza, Peppermint Oil, Motegrity, Gas-X, Dicyclomine, Suppositories ? Medication: Outcome/Adverse Reactions: ??Treatment Failure Decision: Approved ?? Tracking number/Case number/Reference number: [id number] ?? Effective date: 07/26/2021 to 10/26/2021 ?? Start: End: documented in this encounter Plan of Treatment Upcoming Encounters Date Type Specialty Care Team Description 11/13/2022 TH Visit (TeleHealth) Gastroenterology Frank Gonzalez MD [facility] Dr Gastroenterology [place], [place] [address] (Wo rk) documented as of this encounter Visit Diagnoses Not on filedocumented in this encounter Care Teams Appraiser Auditor Relationship Specialty Start Date End Date John Rosario APRN PCP - General Family Medicine 07/23/19 [address] [place] [address] documented as of this encounter
--- OUTSIDE RECORDS SUMMARY | 2022-07-07 02:44 | XMS_ITS | Encounter Summary ---
:1970 Author Organization [facility] [place] [address] Care Team Providers Name Role Phone John Rosario DURABLE MEDICAL EQUIPMENT REPAIRER Primary Care Provider Encounter Details Date Type Department Care Team Description 12/12/2021 TH Visit [place] [facility] [place] Andrews Adjustment (TeleHealth) [facility] Estevan blum PhD disorder, [place] [address] [facility] unspecified type [phone] [place] [address] Social History Tobacco Use Types Packs/Day Years Used Date Never Assessed Sex Assigned at Date Recorded Not on file documented as of this encounter Progress Notes Sam Andrews, PhD - 12/12/2021 11:00 AM EDT [facility] Department of Medicine, Section of Gastroenterology & Hepatology Behavioral Health: Cognitive Behavioral Therapy for Pain Group Time Spent: 55 minutes Visit date: 12/12/21 Session: 1 Number of participants: 7 Leader: Sam Andrews, Ph.D. This group was conducted via via telehealth. Patient is located in [place] and at home.. SUBJECTIVE: Chief Complaint: Adjustment Disorder with regards to GI abdominal pain OBJECTIVE: Interventions/topics: Provided an overview of pain science and Cognitive Behavioral Pain Reprocessing. Discussed individual experiences of pain. Introduced the difference between chronic and acute pain. Discussed the neuroplastic pain interview process as a way of getting acquainted one's pain. ASSESSMENT: Pertinent Mental Status Exam: WNL Verbal/interpersonal exchange with other participants: appropriate PLAN: Next session in 1 week. Assignment: 1) Get acquainted with your pain with the neuropathic pain interview handout provided over email. 2) Produce an Evidence Sheet to stay acquainted with your pain. Insomnia Severity Index Q - BMED GI BATTERY INSOMNIA 12/11/2021 Please rate the current (i.e., last 2 weeks) SEVERITY of your insomnia problem(s). Difficulty falling asleep: Moderate Please rate the current (i.e., last 2 weeks) SEVERITY of your insomnia problem(s). Difficulty staying asleep: Severe Please rate the current (i.e., last 2 weeks) SEVERITY of your insomnia problem(s). Problem waking uptoo early: Moderate On a scale from 0 to 4, where 0 means Very Satisfied and 4 means Very Dissatisfied; How SATISFIED/dissatisfied are you with your current sleep pattern? 4 - Very Dissatisfied To what extent do you consider your sleep problem to INTERFERE with your daily functioning (e.g. daytime fatigue, ability to function at work/daily chores, concentration, memory, mood, etc.)? Much How NOTICEABLE to others do you think your sleeping problem is in terms of impairing the quality of your life? Much How WORRIED/distressed are you about your current sleep problem? Somewhat Graded Chronic Pain Scale Q - BMED GI BATTERY GRADED CHRONIC PAIN SCALE 12/11/2021 In the last 3 months, ON AVERAGE, how would you rate your chronic pain? Use a scale from 0-10, where0 is no pain and 10 is pain as bad as it could be 7 In the last 3 months, how many days did your chronic pain keep you from doing your USUAL ACTIVITIES like work, school or housework? 76-90 In the last 3 months, how much has your chronic pain interfered with your DAILY ACTIVITIES? Use a scale from 0-10, where 0 is no interference and 10 is unable to carry on any activities. 7 I worry all the time about whether the pain will end All the time I feel I can't go on To a slight degree It's terrible and I think it's never going to get any better All the time It's awful and I feel that it overwhelms me To a great degree I feel I can't stand it anymore To a great degree I become afraid that the pain will get worse All the time I keep thinking of other painful events To a moderate degree I anxiously want the pain to go away To a great degree I can't seem to keep it out of my mind To a moderate degree I keep thinking about how much it hurts To a slight degree I keep thinking about how badly I want the pain to stop To a great degree There's nothing I can do to reduce the intensity of the pain All the time I wonder whether something serious may happen To a moderate degree JULIUS 7 Q - BMED GI BATTERY JULIUS 7 12/11/2021 Over the LAST 2 WEEKS, how often have you been bothered by feeling nervous, anxious or on edge? Nearly every day Over the LAST 2 WEEKS, how often have you been bothered by not being able to stop or control worrying? Nearly every day Over the LAST 2 WEEKS, how often have you been bothered by worrying too much about different things?Nearly every day Over the LAST 2 WEEKS, how often have you been bothered by trouble relaxing? Nearly every day Over the LAST 2 WEEKS, how often have you been bothered by being so restless that it is hard to sit still? Several days Over the LAST 2 WEEKS, how often have you been bothered by becoming easily annoyed or irritable? Several days Over the LAST 2 WEEKS, how often have you been bothered by feeling afraid as if something awful might happen? More than half the days PHQ 9 Q - BMED GI BATTERY PHQ 9 12/11/2021 Over the LAST 2 WEEKS, how often have you been bothered by little interest or pleasure in doing things? More than half the days Over the LAST 2 WEEKS, how often have you been bothered by feeling down, depressed, or hopeless? More than half the days Over the LAST 2 WEEKS, how often have you been bothered by trouble falling or staying asleep, or sleeping too much? Nearly every day Over the LAST 2 WEEKS, how often have you been bothered by feeling tired or having no energy? Nearlyevery day Over the LAST 2 WEEKS, how often have you been bothered by poor appetite or overeating? More than half the days Over the LAST 2 WEEKS, how often have you been bothered by feeling bad about yourself or that you are a failure or have let yourself or your family down? Nearly every day Over the LAST 2 WEEKS, how often have you been bothered by trouble concentrating on things such as reading the newspaper or watching television? More than half the days Over the LAST 2 WEEKS, how often have you been bothered by moving or speaking so slowly that people have noticed? Or the opposite- being so fidgety or restless that you have been moving around a lot more than usual? Not at all Over the LAST 2 WEEKS, how often have you been bothered by thoughts that you would be better off or of hurting yourself in some way? Several days How difficult have these problems made it for you to do your work, take care of things at home, or get along with other people? Somewhat difficult IBS Q - BMED GI BATTERY IBS 12/11/2021 1 a) Do you currently (in the last 10 days) suffer from abdominal (tummy) pain? Yes 1 b) If yes, how severe is your abdominal (tummy) pain? 7 1 c) Please enter the number of days you have had the pain in the last 10 days 9 2 a) Do you currently suffer from abdominal distention (bloating, swollen or tight tummy). Women, please ignore distention related to your period Yes 2 b) If yes, how severe is your abdominal distension/tightness? 10 - Very severe 3. How satisfied are you with your bowel habits? 6 - Unhappy 4) Please indicate how much abdominal pain or discomfort or altered bowel habits are affecting or interfering with your life in general 10 - Completely VSI Q - BMED GI BATTERY VSI 12/11/2021 1. I worry that whenever I eat during the day, bloating and distension in my belly will get worse Strongly Agree 2. I get anxious when I go to a new restaurant Strongly Agree 3. I often worry about problems in my belly Strongly Agree 4. I have a difficult time enjoying myself because I cannot get my mind off of discomfort in my belly Strongly Agree 5. I often fear that I won't be able to have a normal bowel movement Strongly Agree 6. Because of fear of developing abdominal discomfort, I seldom try new foods Strongly Agree 7. No matter what I eat, I will probably feel uncomfortable Strongly Agree 8. As soon as I feel abdominal discomfort I begin to worry and feel anxious Strongly Agree 9. When I enter a place I haven't been before, one of the first things I do is to look for a bathroom Strongly Disagree 10. I am constantly aware of the feelings I have in my belly Strongly Agree 11. I often feel discomfort in my belly could be a sign of serious illness Moderately Agree 12. As soon as I awake, I worry that I will have discomfort in my belly during the day Strongly Agree 13. When I feel discomfort in my belly, it frightens me Moderately Disagree 14. In stressful situations, my belly bothers me a lot Strongly Agree 15. I constantly think about what is happening inside my belly Strongly Agree SCORING Q - BMED GI BATTERY SCORING 12/11/2021 OZIEL Score 15 (Clinical insomnia (moderate severity)) INSOMNIA SEVERITY INDEX 19 (Moderately severe insomnia) Usual Pain Intensity 7 Disability Score 17 PCS- Rumination 9 PCS - Magnification 8 PCS - Helplessness 19 PCS - Total Score 36 (Clinically relevant level of catastrophizing) GAD7 Total Scores 16 (Severe Anxiety) Total PHQ-9 18 (Moderately Severe Depression) IBS Severity Score 420 (Severe IBS) VSI Score 25 (Within normal range) Yumi Leong, PhD - 12/12/2021 11:00 AM EDT I have reviewed this note and I agree with the assessment, plan, and treatment as documented by Sam Andrews, Ph.D., who is a postdoctoral fellow at [facility] providing services under my supervision through the Department of Psychiatry. Yumi Leong, Ph.D. documented in this encounter Plan of Treatment Upcoming Encounters Date Type Specialty Care Team Description 11/13/2022 TH Visit (TeleHealth) Gastroenterology Frank Gonzalez MD [facility] Gastroenterology [place], [place] [address] (Wo rk) documented as of this encounter Visit Diagnoses Diagnosis Adjustment disorder, unspecified type documented in this encounter Care Teams Appeals Nurse Relationship Specialty Start Date End Date John Rosario APRN PCP - General Family Medicine 07/23/19 [address] [place] [address] documented as of this encounter
--- OUTSIDE RECORDS SUMMARY | 2022-07-07 02:44 | XMS_ITS | Encounter Summary ---
:1970 Author Organization [facility] [place] [address] Care Team Providers Name Role Phone John Rosario APRN Primary Care Provider Encounter Details Date Type Department Care Team Description 10/03/2021 Telephone [place] [facility] [place] [address] Social History Tobacco Use Types Packs/Day Years Used Date Never Assessed Sex Assigned at Date Recorded Not on file documented as of this encounter Miscellaneous Notes Telephone Encounter - Nara Colon - 10/03/2021 2:22 PM EST Left Message. Need to schedule a follow-up with Dr. Gonzalez in beginning of january documented in this encounter Plan of Treatment Upcoming Encounters Date Type Specialty Care Team Description 11/13/2022 TH Visit (TeleHealth) Gastroenterology Frank Gonzalez MD [facility] er Gastroenterology [place], [place] [address] (Wo rk) documented as of this encounter Visit Diagnoses Not on filedocumented in this encounter Care Teams Lawyer Criminal Relationship Specialty Start Date End Date John Rosario APRN PCP - General Family Medicine 07/23/19 [address] [place] [address] documented as of this encounter
--- OUTSIDE RECORDS SUMMARY | 2022-07-07 02:44 | XMS_ITS | Encounter Summary ---
:1970 Author Organization [facility] [place] [address] Care Team Providers Name Role Phone John Rosario APRN Primary Care Provider Reason for Visit Reason Onset Date Comments Reminder Appointment 09/26/2021 Encounter Details Date Type Department Care Team Description 09/26/[address] [facility] [place] Fouzia Neal Reminder Appointment [facility] [place] [address] Social History Tobacco Use Types Packs/Day Years Used Date Never Assessed Sex Assigned at Date Recorded Not on file documented as of this encounter Miscellaneous Notes Telephone Encounter - Fouzia Neal CCMA - 09/26/2021 10:16 AM EST Called patient to review medications and allergies for their upcoming gastroenterology Type of Appointment: Telehealth appointment. Reach Patient during MA Check: Yes Notes for the provider: Notes for the nurse: documented in this encounter Plan of Treatment Upcoming Encounters Date Type Specialty Care Team Description 11/13/2022 TH Visit (TeleHealth) Gastroenterology Frank Gonzalez MD [facility] Dr Gastroenterology [place], [place] [address] (Wo rk) documented as of this encounter Visit Diagnoses Not on filedocumented in this encounter Care Teams Senior Clinical Study Manager Relationship Specialty Start Date End Date John Rosario APRN PCP - General Family Medicine 07/23/19 [address] [place] [address] documented as of this encounter
--- OUTSIDE RECORDS SUMMARY | 2022-07-07 02:44 | XMS_ITS | Encounter Summary ---
:1970 Author Organization [facility] [address] Care Team Providers Name Role Phone John Rosario ERICK Primary Care Provider Reason for Referral Physical Therapy (Routine) - Authorized Specialty Diagnoses / Procedures Referred By Contact Refer red To Contact Diagnoses Stress incontinence of urine OAB (overactive bladder) Levator spasm Chronic pelvic pain in [place] [address] Referral ID Status Reason Start Expiration Visits Visits Date Date Requested Authorized [id number] Authorized Evaluate and 12/28/2022 12 12 Treat 2 Reason for Visit Reason Comments Establish Care Consultation (Routine) - Closed Specialty Diagnoses / Procedures Referred By Contact Refer red To Contact Obstetrics and Diagnoses Urinary incontinence, unspecified type Kim Gonzalez MD Cooper, Anne C, MD Gynecology [facility] [address] [place] [address] Referral ID Status Reason Start Date Expiration Date Visits V isits Requested Authorized [id number] Closed Consult, 01/18/2022 01/18/2023 1 1 Test & Treat Encounter Details Date Type Department Care Team Description 06/30/2022 Office Visit Obstetrics and Nicole Moses MD Stress incontinence of urine; Gynecology at [facility] OAB (overactive bladder); [facility] Levator spasm; [place] [address] Chronic pelvic pain in female; [place], [place] [phone] Irritable bowel syndrome with constipation; [id number] (Work) Chronic constipation; [phone] Uterine l eiomyoma, unspecified location; Abnormal uterin e bleeding Social History Tobacco Use Types Packs/Day Years Used Date Former Smoker Smokeless Tobacco: Never Used Alcohol Use Standard Drinks/Week Comments Not Currently 0 (1 standard drink = 0.6 oz pure alcoho l) Sex Assigned at Date Recorded Not on file documented as of this encounter Last Filed Vital Signs Vital Sign Reading Time Taken Comments Blood Pressure 133/76 06/30/2022 11:09 AM EDT Pulse 87 06/30/2022 11:09 AM EDT Temperature 37 ??C (98.6 ??F) 06/30/2022 11:09 AM EDT Respiratory Rate - - Oxygen Saturation 100% 06/30/2022 11:09 AM EDT Inhaled Oxygen Concentration - - Weight 53.5 kg (117 lb 14.4 oz) 06/30/2022 11:09 AM EDT Height 159 cm (5' 2.6) 06/30/2022 11:09 AM EDT Body Mass Index 21.15 06/30/2022 11:09 AM EDT documented in this encounter Patient Instructions Patient InstructionsNicole Moses MD - 06/30/2022 11:00 AM EDT Stress urinary incontinence Pelvic floor physical therapy - RN will call to review options near your home. This will help with the pain with intercourse and overactive bladder. Overactive bladder on mirabegron Continue mirabegron Start bladder retraining and other home conservative therapies - handout given Pelvic floor physical therapy can also help with this. Concern for worsened urinary incontinence if she proceeds with hysterectomy Unable to predict whether urinary incontinence would worsen Would recommend low risk interventions to decrease current symptoms, including pelvic floor physicaltherapy and first line therapies for overactive bladder History of incomplete bladder emptying at one prior urology visit; PVR 0 today If inadequate improvement with urinary incontinence treatments, consider urodynamic testing. Multiple sclerosis; stable, major manifestations are uveitis & possibly the IBS Update us if symptoms worsen Dyspareunia, likely due in part to: Severe pelvic floor muscle dysfunction & elevated tone Treat with Nabothian cysts ?Possible endometriosis Fibroid uterus Abnormal uterine bleeding Consider endometrial biopsy given persistently significant bleeding. Bleeding is not very common at the moment, so she prefers to avoid change of medication. Consider changing medication; consider changing medication or dosage. We discussed the increased risk of stroke,which she is aware of, is small and she accepts. Additional treatments include elagolix with add-back therapy; tranexamic acid; NSAIDs. She previously tried an IUD. == Overactive bladder Overactive bladder is urinary urgency, frequency caused by spasms of the bladder. It can cause urineleakage, known as urge incontinence. Our first treatment approach is a range of home-based therapies that have been shown to be effectivein reducing the number of voids (and leaks) per day. Start with the treatments listed below, and we will schedule a follow up telephone visit to provide support for you and answer any questions. Pelvic floor physical therapy is also an option that can be very helpful. Home treatment options 1) Fluid management Avoid bladder irritants (caffeine, artificial sweeteners, alcohol, tobacco, carbonation, spicy/acidic foods & drinks) Decrease fluid intake at night or before a long drive/meeting to reduce voiding; instead, drink moreat other times of day to stay well hydrated. Normal fluid intake should be 32-64 oz (1/2 to 1 gallon). 2)Evidence-based home therapy for overactive bladder: 1) Practice Kegel exercises - see below 2) Practice Urge suppression strategies - Freeze and Squeeze If you have trouble reaching the bathroom before you start losing urine, we recommend trying this technique. When you get the urge to urinate: Stop and stay still, sit down if you can Squeeze your pelvic floor muscles quickly 5-10 times; repeat as needed. This can help the bladder torelax. Elevate up on your toes several times, this can also help the bladder to relax. Relax the rest of your body and take a deep breath Concentrate on suppressing the urge Distract yourself to get your mind on something else. Wait until the urge subsides, then walk to the bathroom at a normal pace. Don't ignore the message - once it subsides, then walk to the bathroom to empty. 3) Timed voiding Set an alarm, and go try to empty your bladder every ___ minutes, whether you feel an urge or not. (Choose a time you KNOW you can wait without urgency or leaking, for instance, 30 or 60 min). Do this every day for a week (daytime only), or until it becomes easy, and you are not having urgency or leakage. If you do have an urge before it is time to void, use the Urge suppression strategies you have been practicing. If you find that you still do have urgency/leakage, then you should set a shorter time between voidsand start over. 4) Bladder retraining - This can reestablish your brain's control over your bladder. Over several weeks to months, be strict with scheduling times to urinate. Gradually, you can increase the time between voids. After your first week of timed voiding, then gradually increase the time between voids, by 10-15 minutes. Every time your alarm goes off at this new time, go empty your bladder. When this becomes easy (approximately a week), increase the time again. In this way you can gradually increase your comfortable time between voids. Emptying your bladder every 2-4 hours is considered normal. More details Instructions for pelvic floor muscle RELAXATION - rather than strengthening To help you find the right muscles: Imagine you are going to pass gas, then, squeeze the muscles that would prevent that gas from escaping from your rectum. Then try to relax those muscles. While lying or sitting, place 1 finger inside your vagina. Squeeze as if you are trying to stop urine from coming out. You should feel your finger lifted and squeezed towards her head if you are correctly frankie your pelvic muscles - then focus on relaxing those muscles. *Do not hold your breath while exercising *Remember not to tighten your stomach and back muscles or squeeze your legs together. They should berelaxed as you isolate just your pelvic muscles. Recommended routine for pelvic floor relaxation: Start by pulling and holding a pelvic muscle squeeze for 1-3 seconds then relax for 3 to 10 seconds.If it hurts to squeeze the muscle, then do not squeeze, and instead just focus on relaxing. Do this for 10 repetitions 3 times a day, FOCUSING ON RELAXATION. As it gets easier to identify the muscles, you can make a habit of doing them when at the same time as some other routine activities, such as brushing your teeth, washing the dishes, sitting at a red light in your car, or watching a commercial on television. Always continue to focus on relaxation. === Easy Stretches to Relax the Pelvis - Women These stretches are designed to stretch the muscles inside and around the pelvis. Hold the stretch to a point of increased tension but never pain. Hold each stretch for 30 seconds and breathe into your belly. Remember to do both left and right sides, up to three times each. The exercises will help most when done every day. Knee to Chest Start lying on your back with both legs straight and relax. Bend one knee to your chest. Hold an easy stretch for 30 seconds and breathe deeply into your belly. Repeat the stretch with the other leg. Knee to Opposite Shoulder Start lying flat. Bring your left knee to your chest and diagonally to theopposite shoulder. Hold an easy stretch for 30 seconds. Breathe Mindfully. Repeat the stretch with the right leg. Foot and Knee Up Start with your feet on the floor and knees bent. Bring your right foot to the front of your left knee. Then lift your left knee towards your chest. Hold an easy stretch for 30 seconds. Breathe mindfully. Repeat the stretch the opposite way, with right foot to left knee etc. Knee over to hand. Start lying flat on your back. Left knee comes over your body to the floor near the right hand, which can hold the knee down. Hold an easy stretch for 30 seconds and breathe mindfully into your belly. John Pose Start on your hands and knees. Relax your bottom down towards your heels - your knees are wider apart, feet closer together. Hold an easy stretch for 30 seconds and breathe deeply into yourbelly. Your head can rest on the floor. Flat Frog Lie flat on your back, with the soles of your feet together and knees falling apart. Bringyour feet comfortably close to your bottom. Hold an easy stretch for 30 seconds. Breathe deeply intoyour belly. Happy Baby. Start lying on your back. Grasp the inside of each foot with your arms inside your knees. Allow your knees to widen apart. Hold for 30 seconds and breathe mindfully into your belly. Relaxed Frog Start with your weight on your hands and feet. Relax your bottom down between your heels. Your elbows gently push your knees apart. Hold an easy stretch for 20 seconds. Breathe mindfully into your belly. This stretch is only good for people with good knees! === Pelvic floor physical therapy: What to expect Be prepared to discuss your symptoms of bowel and bladder or pelvic pain in detail. Pelvic floor physical therapist usually perform an internal pelvic muscle exam (like a gynecologic exam) to determinestrength, tone and coordination of the pelvic floor muscles. This allows us to develop an appropriate treatment plan for you. Education: Your physical therapist will teach you about the structure and function of your pelvic floor muscles. Depending on your symptoms, we will also discussed the mechanisms of stress and urge incontinence, constipation, voiding dysfunction and pelvic pain. Pelvic floor exercises: You will learn how to perform a Kaden, which is a contraction of the musclesof the pelvic floor. Many women use unnecessary muscles when they do this, which makes them less effective. Depending on the finding during the evaluation, you may either perform Kaden's for relaxationor for strengthening. Biofeedback: A sensor allows you to visualize your pelvic floor muscle activity by seeing the contraction and relaxation of the muscles on a computer screen. Manual therapy: The therapist may use hands-on techniques such as massage and myofascial release to your abdominal wall or pelvic floor muscles. You may be taught how to gently stretch your vaginal or rectal tissue yourself. Other treatments: Gentle electrical stimulation can be used to help facilitate a better muscle contraction or assist with coordination. You may be taught to use vaginal dilators to dilate the opening of the vagina. Behavioral: We may discuss fluid and dietary fiber intake as part of treatment plan. === documented in this encounter Progress Notes Nicole Moses MD - 06/30/2022 11:00 AM EDT Female Pelvic Medicine and Reconstructive Surgery @ [facility] Patient Name: Yumi Batista Patient Primary Care Provider: John Rosario APRN Referring provider: Kim Gonzalez Patient Active Problem List Diagnosis Code ??? Dyspepsia R10.13 ??? Chronic constipation K59.09 ??? Adjustment disorder F43.20 ??? Irritable bowel syndrome with constipation K58.1 Chief Complaint: Existing urinary incontinence with cough/sneeze, some urgency and frequency History of Present Illness: Ms. Batista is a 52 y.o. old para 1 woman, seen at the kind request of Kim Gonzalez. She presents for evaluation and assessment of several concerns, including existing urinary incontinence, concern for worsened urinary incontinence if she proceeds with hysterectomy for AUB, fibroid uterus and dyspareunia, as well as dyspareunia, chronic pelvic pain in the setting of possible endometriosis, multiple sclerosis and severe IBS-C, of several year's duration. # Urinary incontinence Present since age 42, occurs with sneeze/cough (sometimes), or with jumping or running if bladder isfull. She has a diagnosis of overactive bladder and is on mirabegron 50mg for years. She previously would void, and feel like she had to void again and again and feel like she had to void again just a few minutes later. Now on the mirabegron, she voids maybe every 1-2 hour. Nocturia 1 x at night. She had prior urodynamic testing, was diagnosed with incomplete bladder emptying, and was started onmirabegron for overactive bladder. She saw a urologist or urogynecology provider in the past but can't remember who. She was going to try pelvic floor physical therapy, but provider broke her leg and she never. She was told she does not empty her bladder fully at one single visit; has never had to use a cath, was not taught to [facility]. # AUB She has been on OCPs since age 15. She had an IUD that stopped her periods, but was associated with pain, and since removed, she has not had her normal period again. Still is still on OCPs (Loestrin 09/22), and despite that, since IUD removed 15 years ago, she has had irregular periods. She is aware of roughly doubled risk of stroke in the setting of OCPs use with migraine with aura, has discussed with her neurologist, and wishes to continue the OCPs for now. Currently, periods may last 3 days to one month, with light bleeding versus very heavy flow. She hasgone 4 months. She has not been on a GhRH agonist or any other medications aside from OCPs. Her mother went into menopause in her 40s. Ms. Batista started getting night sweats in her 40s, and was not getting any periods at that time. She last had a transvaginal ultrasound in 2021. No prior endometrial biopsy. #Nabothian cysts She also has cysts on the cervix with associated distinctive pain with intercourse and with palpation of cysts during exam, and was told that the only way to address that is through hysterectomy. # Chronic abdominal pain She does have inconsistent abdominal cramping that does not have a consistent timing. She thinks thepain is similar to period cramps. She doesn't think it is related to the IBS, which causes stabbing pains and severe bloating. She has prior physical therapy for constipation, which was not very helpful. # Dyspareunia She has pain with contact against the cervix; also an painful pressure with deep penetration. Pain lasts for several days after intercourse. No external pain or pain with penetration. Previous urinary incontinence/prolapse treatments (Medical/Behavioral/Surgical): Mirabegron She is from [place] and moved here 3 yrs ago. Her mother had a hysterectomy when she was 45, and 10 yearslater has urinary incontinence. Goals for this visit 1. If I have a hysterectomy, will the urinary incontinence get worse. She is very fearful that the urinary incontinence could worsen. Multiple sclerosis is stable. She tends ot have associated autoimmune manifestations; she has uveitis. Last MRI a couple of years. Sees neurologist annually. 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 PSH: appendectomy, sinus surgery Urinary tract history Patient previously frequent urinary tract infections when she met her , and was put on prophylaxis antibiotics for 6 months. None since. Patient denies history of pyelonephritis. Patient denies history of urinary tract abnormality. Patient denies history of nephrolithiasis. Patient denies history of hematuria. Bladder Function Urinary incontinence: Yes, with cough/sneeze. No. episodes: 1-2 times per day. Pad use (per day): no Daytime voids: Every 1-2 hours Nocturia: 1, large volume Previous urinary incontinence treatment (Medical/Behavioral/Surgical): mirabegron 50mg XL daily per urologist she saw several years ago. ICIQ-UI Short Form How often do you leak urine? Never 0 About once a week or less often 1 2-3 times a week 2 3 About once a day 3 Several times a day 4 All the time 5 How much urine do you usually leak? None 0 A small amount 1 2 A moderate amount 2 A large amount 3 Overall, how much does leaking interfere with your everyday life? 3, but worried that it could become worse (0 not at all, 10 a great deal) ICIQ Sum the scores: 8 When does urine leak? (Check all that apply) Never - Urine does not leak No, but has urgency & frequency Leaks before you can get to the toilet y Leaks when you cough or sneeze Leaks when you are asleep Leaks when you are physically active/exercising Leaks when you have finished urinating or are dressed Leaks for no obvious reason Leaks all the time Bladder irritants: Fluid intake: Water Caffeine intake: coffee 1 cup Artificial sweeteners: no Cigarette smoking (packs, time, if quit when): no Alcohol: no Storage symptoms Q1-2 hr Urinary frequency 1 Nocturia Yes, 1-2x/day Stress urinary incontinence - leakage with exertion, cough/sneeze No, but urgency & frequency Urge urinary incontinence - leakage preceded immediately by urge to void Noctural enuresis - NOT IN ASSOCIATION WITH URGE Continuous urinary leakage Other: (e,g. giggle, intercourse-related) Bladder sensation Normal - aware of filling and increased sensation up to desire to void y Increased - feels an early and persistent need to void Reduced - aware of filling but NOT definite desire to void Absent - NO sensation of filling or need to void Non-specific - No specific bladder symptoms during filling or void Voiding symptoms None Slow stream Spraying Intermittent stream - stop/start on > 1 occasion during void Straining - muscular effort to initiate, maintain OR improve stream Terminal dribble - prolonged final part of void y Feeling of incomplete emptying Pelvic Organ Prolapse (POP) Do you personally see or feel a vaginal bulge? no What precipitates prolapse or symptoms of prolapse? N/a Previous treatment for POP (physical therapy, pessary, surgery)?: N/a Bowel Function Bowel concerns: yes, works with Kim Gonzalez. She has not had a physical exam with Dr. Gonzalez. Number of bowel movements (day/week): About daily; not reviewed extensively. Fecal incontinence (yes/no): no Number of fecal incontinent episodes (day/week): N/a When she can feel hormones kick in she is constipated, and her hormones make the constipation much worse. Defecatory Dysfunction: see notes with Dr. Gonzalez Symptom Presence Symptom Presence NONE Incomplete Emptying Straining y Infrequent stools (<3 week) Splinting Abdominal discomfort y Loose stools Defecatory urgency Hard stools y Other Sexual Function Active?: Yes Pain with intercourse?: Yes, including sometimes for days afterwards. If yes, insertional/Deep? Deep and when touching cervix. Desire to retain sexual function? Yes. MEDICAL HISTORY Past Medical History: Diagnosis Date ??? Abnormal uterine bleeding (AUB) ??? Anxiety ??? Dyspareunia due to medical condition in female ??? Fibroid uterus ??? H/O gastric ulcer ??? Migraine w & wo aura Past Surgical History: Procedure Laterality Date ??? APPENDECTOMY ??? SINUS SURGERY OB History Para Term AB Living 1 1 0 0 0 1 SAB IAB Ectopic Multiple Live Births 0 0 0 0 0 # Outcome Date GA Lbr Rich/2nd Weight Sex Delivery Anes PTL Lv 1 Para Obstetric Comments VD x 1 Gynecologic History: LMP: No LMP recorded. Menses: around age 15, has always had heavy and painful menses Menopause: perimenopausal; some hot flashes at night for several years Abnormal paps: NILM in records from Dr. Mays; >25 yr ago had an abnormal, had colposcopy, no excision/cryotherapy performed. Last pap: Recent; see media tab, NILM. Outpatient Medications Marked as Taking for the 06/30/22 encounter (Office Visit) with Nicole Moses MD Medication Sig Dispense Refill ??? hyoscyamine SL (Levsin SL) 0.125 mg Tablet, Sublingual Take 1 tablet by mouth every 4 hours as needed for Cramping. Max 6 pills per day. 30 tablet 3 ??? plecanatide (Trulance) 3 mg Tablet Take 1 tablet by mouth daily. 90 tablet 3 ??? mirabegron (Myrbetriq) 50 mg Tablet Sustained Release 24 hr Take 50 mg by mouth daily. ??? rizatriptan (MAXALT-ASSOCIATE PROFESSOR [employer]ATRE) 10 mg Tablet, Rapid Dissolve Take 10 mg by mouth as needed. ??? norethindrone-e.estradioL-iron (Jaida 24 Fe) 1 mg-20 mcg(24) /75 mg (4) Tablet, Chewable Take 1 tablet by mouth daily. ??? polyethylene glycoL (Miralax) 17 gram Powder in Packet Take 17 g by mouth daily. ??? pantoprazole EC (Protonix) 40 mg Tablet, Delayed Release (E.C.) Take 40 mg by mouth daily. Allergies Allergen Reactions ??? Fingolimod ??? Venlafaxine Other (See Comments) Headache ??? Amitriptyline ??? Dimethyl Fumarate ??? Fluoxetine ??? Gabapentin ??? Glatiramer (Copolymer 1) Social History Socioeconomic History ??? Marital status: Spouse name: Not on file ??? Number of children: Not on file ??? Years of education: Not on file ??? Highest education level: Not on file Occupational History ??? Not on file Tobacco Use ??? Smoking status: Former Smoker ??? Smokeless tobacco: Never Used Vaping Use ??? Vaping Use: Never used Substance and Sexual Activity ??? Alcohol use: Not Currently ??? Drug use: Not Currently ??? Sexual activity: Yes control/protection: OCP Other Topics Concern ??? Not on file Social History Narrative ??? Not on file Social Determinants of Health Financial Resource Strain: Not on file Food Insecurity: Not on file Transportation Needs: Not on file Physical Activity: Not on file Housing Stability: Not on file History reviewed. No pertinent family history. Outside medical records reviewed: yes Data reviewed (images/urodynamic studies): n/a OBJECTIVE: BP 133/76 (BP Location (NBP): Right arm) Pulse 87 Temp 37 ??C (98.6 ??F) Ht 159 cm (5' 2.6) Wt 53.5 kg (117 lb 14.4 oz) SpO2 100% BMI 21.15 kg/m?? To further delineate patient's urinary symptoms, a urine dip test and postvoid residual via the [employer] bladder scanner were obtained. After the patient voided, 0 mL was measured as a postvoid residual indicating normal emptying. Exam was performed with a algebra teacher. General: normal appearing female, pleasant mood, normal speech Skin: skin of abdomen/pelvis normal Respiratory: normal work of breathing Neuro: no paraspinous tenderness; saddle sensory function (S2-4) intact in the pelvic area to touch Cardiac: no lower extremity edema Gastrointestinal: no palpable masses/organomegaly, soft/nontender, no appreciable hernia Musculoskeletal: levator ani resting tone: 5/5, throughout, levator ani contraction: 2/5, Pelvic floor muscle tenderness: severe levator ani muscle, bilateral severe coccygeus muscle, bilaterally severe obturator internus, bilaterally Pelvic: Cough stress test (empty supine): neg External Genitalia: Vulva, [place]'s and Bartholin glands normal, urethra without tenderness or mass Vagina: Tissue pink, well rugated Atrophic epithelium (yes/no)?: no Discharge?: Yes, moderate whitish to clear Cervix: Parous,slighly elongated, several Nabothian cysts on posterior cervical lip, largest <1cm, with stinging pain to touch. Bimanual (uterus/adnexa): Uterus slightly enlarged, mobile, adnexa not palpable, no masses Rectovaginal: Unusually high resting tone, no paradox Enterocele: no Rectocele: no Anal sphincter: Resting tone: 5/5, excessive Squeeze: 3/5 Anal wink: equivocal External anal sphincter: intact POP Q Measurements: Aa -2 Ba -2 C -5 GH 1,2 PB 2.5,2.5 TVL 9 Ap -2 Bp -2 D -7 Results for orders placed or performed in visit on 06/30/22 POCT urine dipstick Result Value Ref Range POC Sp [place] 1.01 1.002 - 1.030 POC pH, UA 5.0 5.0 - 8.5 POC Leuk, UA Negative Negative - Negative POC Nitrite, UA Negative Negative - Negative POC Protein, UA Negative Negative - Negative mg/dL POC Glucose, UA Normal Normal - Normal mg/dL POC Ketone, UA Negative Negative - Negative POC Urobil, UA Normal 0.2 - 1.0 mg/dL POC Bili, UA Negative Negative - Negative POC Blood, UA Negative Negative - Negative gloria/uL Bladder Scanner Result Value Ref Range Bladder Scan (mL) 0 mL Impression: Ms. Batista is a 52 y.o. woman with: ?? Stress urinary incontinence ?? Overactive bladder on mirabegron ?? History of incomplete bladder emptying at one prior urology visit; PVR 0 today ?? 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 Dyspareunia, likely due in part to: ?? Severe pelvic floor muscle dysfunction & elevated tone ?? Nabothian cysts ?? ?Possible endometriosis ?? Fibroid uterus ?? Abnormal uterine bleeding ?? Chronic pelvic pain Her top priorities today are whether hysterectomy could cause worsened urinary incontinence, and whether hysterectomy is appropriate treatment for the dyspareunia and AUB. Of note, she has not had vaginal bleeding in 4 months, so dyspareunia and pelvic pain are main concerns currently. We reivewed that it is not possible to predict whether hysterectomy could have impact on continence.We discussed that worsened overactive bladder is possible, either temporary or persistently; and that occasionally stress urinary incontinence could worsen, but that we do not have a way to predict this, and many women proceed with hysterectomy without change in urinary incontinence symptoms. I recommended that we review treatment options for stress urinary incontinence and overactive bladder, and that she undertake conservative therapies to reduce symptom impact, which may also help prevent worsened symptoms over time. Regarding her stress incontinence, or leakage with cough and sneeze, we reviewed the pathophysiologyand potential treatments, including 1. Muscle strengthening, with Kegels and/or pelvic floor physical therapy 2. Pessary 3. Surgery We discussed that pelvic floor physical therapy is critically important to help reduce tenderness and tightness of pelvic floor muscles. We discussed that urinary frequency and urgency may be related to overactive bladder and reviewed treatment options of first line behavioral therapies with or without pelvic floor physical therapy, medications, and advanced therapies. Regarding dyspareunia, on exam it is apparent that severe levator spasm significantly contributes todyspareunia, as well as tenderness with palpation of Nabothian cysts. We discussed that tender and tight pelvic floor muscles are treated primarily with pelvic floor physical therapy, and recommended that she undertake this. It is also likely to help with stress urinary incontinence and overactive bladder, though those will not be the primary focus initially. We discussed that Nabothian cysts can be treated with electrosurgical ablation in office or OR, and that if she wishes to pursue this, I would likely ask one of my colleagues who is more active with procedures on the cervix to perform this procedure. We discussed that treatment options to reduce bleeding and address fibroids can include OCPs (thoughI recommend stopping given migraine with aura), elagolix with add-back therapy (probably progestin-only given migraines), tranexamic acid 1300mg TID x 5 days during heavy bleeding (would check with colleague regarding whether increased risk of clots given migraines). Given that the bleeding has not been present in 4 months, she is not particularly worried about this right now, and prefers to stay with OCPs and avoid additional medications. We did review that if bleeding persists, it is appropriate to perform endometrial biopsy. Transvaginal ultrasound was reportedly done last year without surprising findings, but I do not have access to the records. Recommendations: Based on the patient's expressed goals for management I have recommended the following: ?? Stress urinary incontinence ?? Pelvic floor physical therapy - RN will call to review options near your home. This will help with the pain with intercourse and overactive bladder. ?? Overactive bladder on mirabegron ?? Continue mirabegron ?? Start bladder retraining and other home conservative therapies - handout given ?? Pelvic floor physical therapy can also help with this. ?? Concern for worsened urinary incontinence if she proceeds with hysterectomy ?? Unable to predict whether urinary incontinence would worsen ?? Would recommend low risk interventions to decrease current symptoms, including pelvic floor physical therapy and first line therapies for overactive bladder ?? History of incomplete bladder emptying at one prior urology visit; PVR 0 today ?? If inadequate improvement with urinary incontinence treatments, consider urodynamic testing. ?? 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 Update us if symptoms worsen ?? Dyspareunia, likely due in part to: ?? Severe pelvic floor muscle dysfunction & elevated tone ?? Treat with pelvic floor physical therapy. Referral entered; office to call to review available practices that are accessible to her. ?? Nabothian cysts can be treated with electrosurgery or with hysterectomy. ?? Abnormal uterine bleeding in the setting of fibroid uterus ?? Consider endometrial biopsy given persistently significant bleeding. ?? Bleeding is not very common at the moment, so she prefers to avoid change of medication. Considerchanging medication; consider changing medication or dosage. We discussed the increased risk of stroke, which she is aware of, is small and she accepts. Additional treatments include elagolix with add-back therapy; tranexamic acid; NSAIDs. She previously tried an IUD. ?? Hysterectomy is a reasonable option, but will not reduce dyspareunia and pelvic pain associated with levator spasm. RTC as needed, once she reviewed treatment options with her family. Nicole Moses MD Division of Female Pelvic Medicine and Reconstructive Pelvic Surgery CC: John Rosario, ERICK Gonzalez documented in this encounter Plan of Treatment Upcoming Encounters Date Type Specialty Care Team Description 11/13/2022 TH Visit (TeleHealth) Gastroenterology Frank Gonzalez MD [facility] Gastroenterology [place], [place] [address] (Wo rk) Scheduled Referrals Name Type Priority Associated Diagnoses Order S chedule Referral to Outpatient Referral Routine Stress incontinence o f 06/30/2022 Physical Therapy urine OAB (overactive bladder) Levator spasm Chronic pelvic pain in female documented as of this encounter Procedures Procedure Name Priority Date/Time Associated Diagnosis Comme nts BLADDER SCANNER Routine 06/30/2022 Stress incontinence of Re sults for this urine procedure are in the OAB (overactive bladder) res ults section. POCT URINE DIPSTICK Routine 06/30/2022 Stress incontinence o f Results for this urine procedure are in the OAB (overactive bladder) res ults section. documented in this encounter Results Bladder Scanner (06/30/2022) P athologist Signature Bladder Scan 0 mL (mL) Nicole Moses MD UROLOGY ORDERABLES POCT urine dipstick (06/30/2022) [facility] gist Method Time Signature POC Sp [place] 1.01 1.002 - 1.030 POC pH, UA 5.0 5.0 - 8.5 POC Leuk, UA Negative Negative - Negative POC Nitrite, Negative Negative - UA Negative POC Protein, Negative Negative - UA Negative mg/dL POC Glucose, Normal Normal - UA Normal mg/dL POC Ketone, UA Negative Negative - Negative POC Urobil, UA Normal 0.2 - 1.0 mg/dL POC Bili, UA Negative Negative - Negative POC Blood, UA Negative Negative - Negative gloria/uL Nicole Moses MD POINT OF CARE TEST ORDERABLE S documented in this encounter Visit Diagnoses Diagnosis Stress incontinence of urine OAB (overactive bladder) Hypertonicity of bladder Levator spasm Abnormal involuntary movements Chronic pelvic pain in female Unspecified symptom associated with fema le genital organs Irritable bowel syndrome with constipati on Irritable bowel syndrome Chronic constipation Unspecified constipation Uterine leiomyoma, unspecified location Abnormal uterine bleeding Unspecified disorder of menstruation and other abnormal bleeding from female genital tract documented in this encounter Care Teams Design Teacher Relationship Specialty Start Date End Date John Rosario APRN PCP - General Family Medicine 07/23/19 [address] [place] [address] documented as of this encounter
--- OUTSIDE RECORDS SUMMARY | 2022-07-07 02:44 | XMS_ITS | Clinical Summary ---
:1970 Author Organization [facility] [place] [address] Care Team Providers Name Role Phone John Rosario ERICK Primary Care Provider Allergies Active Allergy Reactions Severity Noted Date Comments Amitriptyline Low 05/20/2020 Dimethyl Fumarate Low 05/20/2020 Fingolimod High 05/20/2020 Fluoxetine Low 05/20/2020 Gabapentin Low 05/20/2020 Glatiramer (Copolymer 1) Low 05/20/2020 Venlafaxine Other (See Comments) Medium 12/22/2015 Headach e Medications Medication Sig Dispensed Refills Start Date End Date Status polyethylene glycoL Take 17 g by 0 Active (Miralax) 17 gram mouth daily. Powder in Packet pantoprazole EC Take 40 mg by 0 Active (Protonix) 40 mg mouth daily. Tablet, Delayed Release (E.C.) mirabegron (Myrbetriq) Take 50 mg by 0 05/31/2017 Active 50 mg Tablet Sustained mouth daily. Release 24 hr rizatriptan Take 10 mg by 0 04/18/2021 Act keeley (MAXALT-SHIPPING AGENT) 10 mg mouth as needed. Tablet, Rapid Dissolve norethindrone-e.estradi Take 1 tablet by 0 9 Active oL-iron (Jaida 24 mouth daily. Fe) 1 mg-20 mcg(24) /75 mg (4) Tablet, Chewable plecanatide (Trulance) Take 1 tablet by 90 tablet 3 10/27/2021 Active 3 mg TabletIndications: mouth daily. Irritable bowel syndrome with constipation hyoscyamine SL (Levsin Take 1 tablet by 30 tablet 3 11/21/2021 Active SL) 0.125 mg Tablet, mouth every 4 SublingualIndications: hours as needed Irritable bowel for Cramping. Max syndrome with 6 pills per day. constipation Active Problems Problem Noted Date Irritable bowel syndrome with constipation 01/10/2022 Adjustment disorder 12/12/2021 Dyspepsia 12/19/2020 Chronic constipation 12/19/2020 Encounters Date Type Specialty Care Team Description 06/30/2022 Office Visit Obstetrics and Gynecology Nicole Moses incontinence of urine; MD Kristie OAB (overactive bladder); Levator spasm; Chronic pelvic pain in female; Irritable bowel syndrome with constipation; Chronic constip ation; Uterine leiomyo ma, unspecified location; Abnormal uterin e bleeding 06/30/2022 Travel 05/15/2022 TH Visit Gastroenterology Kim Gonzalez Irritable bowel syndrome with constipation; (TeleHealth) MD Noel Functional dysp epsia from Last 3 Months Social History Tobacco Use Types Packs/Day Years Used Date Former Smoker Smokeless Tobacco: Never Used Alcohol Use Standard Drinks/Week Comments Not Currently 0 (1 standard drink = 0.6 oz pure alcoho l) Sex Assigned at Date Recorded Not on file Last Filed Vital Signs Vital Sign Reading [...] Mass Index 21.15 06/30/2022 11:09 AM EDT Plan of Treatment Upcoming Encounters Date Type Specialty Care Team Description 11/13/2022 TH Visit (TeleHealth) Gastroenterology Frank Gonzalez MD [facility] Gastroenterology [place], [place] [address] (Wo rk) Health Maintenance Due Date Last Done Comments Covid-19 Vaccine (#1) 1970 HIV screen 01/25/1990 Hepatitis C Screening 01/25/1990 Tdap adult 01/25/1991 Tetanus vaccine 01/25/1991 HPV test 01/25/2002 PAP Smear 01/25/2002 Breast Cancer Share Decision Needed 2012 Colonoscopy 01/25/2017 Breast Cancer screening 01/25/2022 Zoster vaccine (1 of 2) 01/25/2022 Influenza (Flu) vaccine (1 of 1 - Influenza standard 05/04/2022 series) Procedures Procedure Name Priority Date/Time Associated Diagnosis Comme nts BLADDER SCANNER Routine 06/30/2022 Stress incontinence of Re sults for this urine procedure are in the OAB (overactive bladder) res ults section. POCT URINE DIPSTICK Routine 06/30/2022 Stress incontinence o f Results for this urine procedure are in the OAB (overactive bladder) res ults section. from Last 3 Months Results Bladder Scanner (06/30/2022) P athologist Signature Bladder Scan 0 mL (mL) Nicole Moses MD UROLOGY ORDERABLES POCT urine dipstick (06/30/2022) Patholo gist Method Time Signature POC Sp [place] 1.01 1.002 - 1.030 POC pH, UA [...] MD POINT OF CARE TEST ORDERABLE S from Last 3 Months Insurance Payer Benefit Plan / Subscriber ID Effective Dates Phone Addre ss Type Group [place] [id number] 2019-Pres [phone] [address] [facility] [address] [place], [place] [address] MEDICAID FORMERLY [facility] MEDICAID [place] [id number] 2019-Pres [phone] [address] [place] [address] Care Teams Stunt Man Relationship Specialty Start Date End Date John Rosario APRN PCP - General Family Medicine 07/23/19 [address] [place] [address]
--- OUTSIDE RECORDS SUMMARY | 2022-07-07 02:44 | XMS_ITS | Encounter Summary ---
:1970 Author Organization [place] [address] Care Team Providers Name Role Phone Marlene John Xander SUAREZ Primary Care Provider Encounter Details Date Type Department Care Team Description 09/12/2019 Ancillary [facility] CYANIDE FURNACE OPERATOR [address] [address] [place], [place] [phone] (Wo rk) Social History Tobacco Use Types Packs/Day Years Used Date Never Assessed Sex Assigned at Date Recorded Not on file documented as of this encounter Plan of Treatment Upcoming Encounters Date Type Specialty Care Team Description 11/13/2022 TH Visit (TeleHealth) Gastroenterology Frank Gonzalez MD [facility] Dr Gastroenterology [place], [place] [address] (Wo rk) documented as of this encounter Procedures Procedure Name Priority Date/Time Associated Diagnosis Comme nts FILM LIBRARY Routine 09/12/2019 12:00 AM Results for this STORAGE ONLY DX EST procedure ar e in ABDOMEN the results section. documented in this encounter Results Film Library- Storage Only DX Abdomen (09/12/2019 12:00 AM EST) Specimen (Source) Anatomical Location Collection Method / Collectio n Time Received Time / Laterality Volume Narrative RAD - 02/07/2022 10:20 AM EDT This exam is auto-finalizing. It's purpo se is for storage only. John Rosario APRN IMG FILM LIBRARY ORDERABLES Performing Organization Address City/State/ZIP Code Phon e Number [facility] [place], [place] documented in this encounter Visit Diagnoses Not on filedocumented in this encounter Care Teams Cisco Engineer Relationship Specialty Start Date End Date John Rosario APRN PCP - General Family Medicine 07/23/19 [address] [place] [address] documented as of this encounter
--- OUTSIDE RECORDS SUMMARY | 2022-07-07 02:44 | XMS_ITS | Encounter Summary ---
:1970 [place] [address] Care Team Providers Name Role Phone John Rosario APRN Primary Care Provider Encounter Details Date Type Department Care Team Description 03/24/2021 Telephone Gastroenterology at [facility] [place] [address] Social History Tobacco Use Types Packs/Day Years Used Date Never Assessed Sex Assigned at Date Recorded Not on file documented as of this encounter Miscellaneous Notes Telephone Encounter - Ivy Hagan - 03/24/2021 12:47 PM EDT ANORECTAL MANOMETRY CLINICAL SAFETY CHECKLIST 03/24/20[address] Ivy Buck [address] [place] [address] [id number] : 1970 REFERRING PROVIDER: Carlos PRIMARY CARE PROVIDER: John Rosario APRN PRIMARY SYMPTOM (PROCEDURE INDICATION): constipation SAFETY QUESTIONS ANAL OR RECTAL SURGERY WITHIN SIX MONTHS? no *SEVERE ACTIVE* ULCERATIVE COLITIS OR CROHN'S DISEASE DETERMINED BY THE RMD? no IF YES TO ANY OF THE ABOVE PRE-PROCEDURE QUESTIONS, please inform the patient that the test cannot be scheduled due to safety concerns about testing, and the patient should speak with their provider toconsider alternative testing. The credit investigator should also contact the provider's office directly to notify them that we are unable to schedule due to a contraindication to testing. Then, delete the remainder of this checklist and close out the referral. QUESTIONS FOR THE PATIENT BLOOD THINNERS SUCH PLAVIX, COUMADIN, PRADAXA? no (pt does not have to stop any blood thinners for this procedure) DOES THE PATIENT USE A WHEELCHAIR? no VERBAL PATIENT INSTRUCTIONS The written instructions are very important for the patient to review and contain specific dietary and medication instructions prior to testing. These instructions will give the patient the most accurate test result. The patient should speak with their referring provider or our office if they have any questions. APPOINTMENT NOTES TEMPLATE ARM, symptom: constipation, RMD: Kim Gonzalez MD, PCP: John Rosario APRN, wheelchair: No (At exit, the RMD for appointment notes is the GI provider who saw the patient) documented in this encounter Plan of Treatment Upcoming Encounters Date Type Specialty Care Team Description 11/13/2022 TH Visit (TeleHealth) Gastroenterology Frank Gonzalez MD [facility] Gastroenterology [place], [place] [address] (Wo rk) documented as of this encounter Visit Diagnoses Not on filedocumented in this encounter Care Teams Planer Setup Operator Relationship Specialty Start Date End Date John Rosario APRN PCP - General Family Medicine 07/23/19 [address] [place] [address] documented as of this encounter
--- OUTSIDE RECORDS SUMMARY | 2022-07-07 02:44 | XMS_ITS | Encounter Summary ---
:1970 Author Organization [facility] [place] [address] Care Team Providers Name Role Phone John Rosario APRN Primary Care Provider Reason for Visit Reason Onset Date Comments Medication Refill 12/08/2020 Encounter Details Date Type Department Care Team Description 12/08/2020 Refill [place] at [facility] Gloria Medina, [place] [address] Social History Tobacco Use Types Packs/Day Years Used Date Never Assessed Sex Assigned at Date Recorded Not on file documented as of this encounter Plan of Treatment Upcoming Encounters Date Type Specialty Care Team Description 11/13/2022 TH Visit (TeleHealth) Gastroenterology Frank Gonzalez MD [facility] Gastroenterology [place], [place] [address] (Wo rk) documented as of this encounter Visit Diagnoses Not on filedocumented in this encounter Care Teams Fitness Studies Teacher Relationship Specialty Start Date End Date John Rosario APRN PCP - General Family Medicine 07/23/19 [address] [place] [address] documented as of this encounter
--- OUTSIDE RECORDS SUMMARY | 2022-07-07 02:44 | XMS_ITS | Encounter Summary ---
:1970 Author Organization [place] [address] Care Team Providers Name Role Phone John Rosario ERICK Primary Care Provider Encounter Details Date Type Department Care Team Description 10/31/2021 Telephone Gastroenterology at [facility] Carmen Bennett CMA [facility] [place] [address] DEPT [phone] Social History Tobacco Use Types Packs/Day Years Used Date Never Assessed Sex Assigned at Date Recorded Not on file documented as of this encounter Miscellaneous Notes Telephone Encounter - Carmen Bennett CMA - 10/31/2021 2:00 PM EST Medication Prior Authorization 4L Gastroenterology / [place] [address] Subscriber Insurance: [place] Medicaid Phone: Fax: Physician: Kim Gonzalez Return Pharmacy: Phone: Fax: Medication Requested: Trulance Strength: 3 mg Frequency: Disp.: Refills: Currently taking: yes Diagnosis for this medication: IBS-C ICD-10 code: Prior medications trialed in this patient: Miralax Colace Amitiza Linzess Motegrity Medication: Outcome/Adverse Reactions: treatment failure Decision: approved Tracking number/Case number/Reference number: [id number] Effective date: Start: 10/31/2021 End: 10/31/2022 documented in this encounter Plan of Treatment Upcoming Encounters Date Type Specialty Care Team Description 11/13/2022 TH Visit (TeleHealth) Gastroenterology Frank Gonzalez MD [facility] Gastroenterology [place], [place] [address] (Wo rk) documented as of this encounter Visit Diagnoses Not on filedocumented in this encounter Care Teams Insurance Sales Assistant Relationship Specialty Start Date End Date John Rosario APRN PCP - General Family Medicine 07/23/19 [address] [place] [address] documented as of this encounter
--- OUTSIDE RECORDS SUMMARY | 2022-07-07 02:44 | XMS_ITS | Encounter Summary ---
:1970 Author Organization [facility] [place] [address] Care Team Providers Name Role Phone John Rosario ERICK Primary Care Provider Reason for Referral Consultation (Routine) - Closed Specialty Diagnoses / Procedures Referred By Contact Refer red To Contact Gastroenterology Diagnoses Chronic constipation ARM for constipation [place]) Kim Gonzalez MD [facility] [place] [facility] Procedures ANORECTAL MANOMETRY ARM for constipation [place]pill ([place]) [facility] [place] [address] [place] [address] Fax: Referral ID Status Reason Start Date Expiration Date Visits V isits Requested Authorized [id number] Closed Consult, 12/19/2020 12/19/2021 1 1 Test & Treat Reason for Visit Consultation (Routine) - Closed Specialty Diagnoses / Procedures Referred By Contact Refer red To Contact Gastroenterology Diagnoses Gastroparesis Irritable bowel syndrome with constipation Motility- Gastroparesis/ IBS-C Lauren Carmona APRN [facility] [place] [facility] 4l [address] [place] [address] [place] [address] Phone: Fax: Referral ID Status Reason Start Date Expiration Date Visits V isits Requested Authorized [id number] Closed Consult, Test 09/10/2020 09/10/2021 6 6 [facility] PCP Updated and/or Approved Encounter Details Date Type Department Care Team Description 11/30/2020 TH Visit Gastroenterology at [facility] Kim Gonzalez Irritable bowel syndrome, un specified type; (TeleHealth) [facility] Estevan Cohen MD Chronic constipation; [place] [phone] [facility] Medical Dyspepsia [phone] [place] [address] Social History Tobacco Use Types Packs/Day Years Used Date Never Assessed Sex Assigned at Date Recorded Not on file documented as of this encounter Patient Instructions Patient InstructionsKim Gonzalez MD - 11/30/2020 10:00 AM EDT Recommendations ?? Anorectal manometry (muscle testing with a balloon catheter for chronic constipation). Pelvic floor dysfunction (overactive pelvic floor muscles that don't coordinate together effectively during a bowel movement) is a common cause of constipation that is treatable with pelvic floor therapy. This isbest done prior to assessing for a slow colon. Multiple sclerosis can both cause a slow colon and affect the pelvic floor muscles and make them more spastic. ?? See information below about dyssynergia that can contribute to distention and constipation and the benefits of diaphragmatic breathing ?? SmartPill wireless motility capsule if covered by insurance (looking into this) - would need to combine this with an MRI (MR enterography) to make sure there are no narrow areas in the bowel for thecapsule to get stuck. ?? If the SmartPill is not covered, then would recommend a test called a Sitz Marker to assess thespeed of your colon ?? At some point, it would probably be helpful to do a breath test to confirm the diagnosis of smallintestinal bacterial overgrowth or SIBO - this can look for both hydrogen gas (treated with xifaxan) as well as methane gas (treated with neomcyin, and associated with constipation) ?? Presently I agree with a course of rifaximin 550mg twice a day for 14 days if it is covered; if not, there are alternative antibiotics to use ?? Continue motegrity for at least 3 months total ?? Try Iberogast prior to meals (liquid pro-motility herbal that helps both upper and lower GI symptoms), order on [employer], just be aware of the seller as with all things on [employer]. The original is a [place]ian product ([employer]). ?? Rescue strategy: Glycerine or dulcolax suppository after breakfast or after dinner to help stimulate evacuation of stool and air/gas ?? Can continue peppermint capsules (recommend enteric coated, any brand) See information abdomino-phrenic & pelvic floor dyssynergia that can contribute to abdominal distention (and constipation) ??? https://www.iffgd.org/commentary/pnzxldiaqlqvi-pmzdbygiju-an-disorders.html Diaphragmatic breathing - start doing this several times per day ??? https://my.[employer]onic.org/health/articles/4489-jzuonbmfiwmkj-weumzwvia ??? https://www.[facility].org/conditions-treatments/aeoumhmjlhehu-ddthmbasz-vn-pepe ents Follow-up in: 4-6 months documented in this encounter Progress Notes Kim Gonzalez MD - 11/30/2020 10:00 AM EDT [facility] Section of Gastroenterology and Hepatology New Patient Telemedicine Visit PCP: John Rosario APRN Referring provider: Lauren Carmona APRN [address] [place], [place] [id number] [facility] This is a 50 y.o. female kindly referred by John Rosario APRN for evaluation and management of IBS-C and gastroparesis. GI Problem List 1. Gastroparesis 2. IBS-C 3. SIBO? 4. H pylori 5. PUD 6. GERD She has daily symptoms. She is afraid [...] constipated based on imaging. Started seeing a carpenter mine then. Does not recall ever having hard [...] no flare ups. Hormonal fluctuations Peppermint helps. Review of systems: 14-point review of systems reviewed and negative except as above. My review of the patients's history and testing (labs, endoscopies, imaging) is summarized below: BACKGROUND ?? Colonoscopies last in 2018 (x 4) reportedly normal ?? 2017 for bleeding ?? Reportedly negative celiac serology ?? Avoids high fat/high fiber ?? SIBO rx (rifaximin 550mg TID x 14 days on 07/23/2020) x 2 times with (sx returned a few weeks later) but seems to provide relief for about 6 months ?? Trials include Miralax BID (effective),Milk of Magnesium 1x/wk, Linzess (gassy - multiple trials,a couple of weeks only 2/2 to pain), Amitiza (nausea, bloated - multiple trials, only a couple of weeks 2/2 to pain), Peppermint capsules, Amitriptyline, low FODMAP diet, gluten-free diet, phazyme, gas-X, motegrity ?? CTE negative 2013 ?? NM GE scan abnormal 15% delayed PMHx ?? Migraine ?? MS not on [...] - helpful ?? Gluten-free diet ?? Motegrity Patient Active Problem List Diagnosis Code ??? Dyspepsia R10.13 ??? Chronic constipation K59.09 No current outpatient medications on file. Not on File No past medical history on file. No [...] Strain: ??? Difficulty of Paying Living Expenses: Food Insecurity: ??? Worried About Running Out of Food in the Last Year: ??? Ran Out of Food in the Last Year: Transportation Needs: ??? Lack of Transportation (Medical): ??? Lack of Transportation (Non-Medical): Physical Activity: ??? Days of Exercise per Week: ??? Minutes of Exercise per Session: Stress: ??? Feeling of Stress : Social Connections: ??? Frequency of Communication with Friends and Family: ??? Frequency of Social Gatherings with Friends and Family: ??? Attends Baptism Services: ??? Active Member of Clubs or Organizations: ??? Attends Club or Organization Meetings: ??? Marital Status: Intimate Partner Violence: ??? Fear of Current or Ex-Partner: ??? Emotionally Abused: ??? Physically Abused: ??? Sexually Abused: No family history on file. Physical Exam: No physical exam performed during this phone/telemedicine visit. PERTINENT LABS AND IMAGING: As noted above Impression: 50 y.o. female with MS not on medications, migraine headaches and uveitis kindly referred for evaluation and management of gastroparesis and IBS-C. - Functional dyspepsia (FD) <-- gastroparesis; symptoms [...] spectrum. Prior eval for IBD was negative. We spoke about how testing, particularly given medication trials/failures, can help better understand her symptoms and allow us to tailor laxative type, dosing and timing more specifically. - Abdominal distention may be multifactorial. Has been evaluated for obstruction in the past. Abdomino-phrenic dyssynergia can be seen with pelvic floor dysfunction. Consider dysmotility with high fecal load & SIBO given response to antibiotics and abnormal NM GE scan. I think the periodic, strategic use of antibiotics is reasonable and confirmatory testing may be helpful to provide insight into ways to tailor this approach. Recommendations ?? Anorectal manometry (muscle testing with a balloon catheter for chronic constipation). Pelvic floor dysfunction (overactive pelvic floor muscles that don't coordinate together effectively during a bowel movement) is a common cause of constipation that is treatable with pelvic floor therapy. This isbest done prior to assessing for a slow colon. Multiple sclerosis can both cause a slow colon and affect the pelvic floor muscles and make them more spastic. ?? See information below about dyssynergia that can contribute to distention and constipation and the benefits of diaphragmatic breathing ?? SmartPill wireless motility capsule if covered by insurance (looking into this) - would need to combine this with an MRI (MR enterography) to make sure there are no narrow areas in the bowel for thecapsule to get stuck. ?? If the SmartPill is not covered, then would recommend a test called a Sitz Marker to assess thespeed of your colon ?? At some point, it would probably be helpful to do a breath test to confirm the diagnosis of smallintestinal bacterial overgrowth or SIBO - this can look for both hydrogen gas (treated with xifaxan) as well as methane gas (treated with neomcyin, and associated with constipation) ?? Presently I agree with a course of rifaximin 550mg twice a day for 14 days if it is covered; if not, there are alternative antibiotics to use ?? Continue motegrity for at least 3 months total ?? Try Iberogast prior to meals (liquid pro-motility herbal that helps both upper and lower GI symptoms), order on [employer], just be aware of the seller as with all things on [employer]. The original is a [place] product ([employer]). ?? Rescue strategy: Glycerine or dulcolax suppository after breakfast or after dinner to help stimulate evacuation of stool and air/gas ?? Can continue peppermint capsules (recommend enteric coated, any brand) See information abdomino-phrenic & pelvic floor dyssynergia that can contribute to abdominal distention (and constipation) ??? https://www.iffgd.org/commentary/zzrdvjhubrvqu-baigylqebm-ke-disorders.html Diaphragmatic breathing - start doing this several times per day ??? https://[employer].[facility]veCR[facility] Electronicsvirgin[facility] hospital.org/health/articles/5001-luytwsqwelyhr-pcsifxvaj ??? https://www.[facility].org/conditions-treatments/wcbaisudqoouw-lxqoublvp-qm-pepe ents Follow-up in: 4-6 months The risks, benefits and alternatives were discussed with the patient who understands and agrees withabove. I spent 60 minutes face to face with the patient. Greater than 30 minutes were spent on counseling and discussion as of the above during this telemedicine visit. The patient was located in [place] at the time of their visit. Kim Gonzalez MD 12/19/20 Kim Gonzalez MD Pharmacy Technician Assistantcleaning handyman Section of Gastroenterology and Hepatology [facility] [email or web address] ([email or web address]) documented in this encounter Plan of Treatment Upcoming Encounters Date Type Specialty Care Team Description 11/13/2022 TH Visit (TeleHealth) Gastroenterology Frank Gonzalez MD [facility] Gastroenterology [place] [address] (Wo rk) Scheduled Referrals Name Type Priority Associated Order Schedule Diagnoses Referral to Outpatient Routine Chronic Ordered: Gastroenterology Referral constipation 12/19/2020 documented as of this encounter Visit Diagnoses Diagnosis Irritable bowel syndrome, unspecified ty pe Chronic constipation Unspecified constipation Dyspepsia Dyspepsia and other specified disorders of function of stomach documented in this encounter Care Teams Four H Agent Relationship Specialty Start Date End Date John Rosario APRN PCP - General Family Medicine 07/23/19 [address] [place] [address] documented as of this encounter
[2022-07-07 10:54] LABS: Ferritin 161 ng/mL (8-252)
[2022-07-07 12:08] LABS: Vitamin D 25 Total 48.6 ng/mL (30-100)
== END 2022-07-07 02:33 | disposition home or self-care (01) ==
PROVIDERS: Visit Provider Psychiatry & Neurology Neurology
DX: R25.2 Cramp and spasm (principal); G35 Multiple sclerosis; R53.83 Other fatigue; Z79.899 Other long term (current) drug therapy; G43.709 Chronic migraine without aura, not intractable, without status migrainosus
CPT/HCPCS: 36415; 82306; 82728

== ENCOUNTER 2022-10-20 00:30 | Outpatient (CLI) | payer MEDICAID, SELFPAY ==
--- NOTE | 2022-10-20 08:00 | DI.MRI_ITS ---
Exam(s) MR CERVICAL SPINE WO EXAM: MR CERVICAL SPINE WO CLINICAL HISTORY: MULTIPLE SCLEROSIS, G35 TECHNIQUE: Multiplanar multisequence MRI of the cervical spine was performed without intravenous con trast. COMPARISON: No exams were available for comparison FINDINGS: BONES: Vertebral body heights are maintained. Alignment is normal. Bone marrow signal intensity is wi thin normal limits. CERVICAL CORD: Craniovertebral junction is unremarkable. The cervical cord is normal size and signal intensity. SOFT TISSUES: Unremarkable. C2-3: No disc herniation or bulge is identified. No evidence of neural foraminal narrowing. No signi ficant central canal stenosis C3-4: No disc herniation or bulge is identified. No evidence of neural foraminal narrowing. No signif icant central canal stenosis C4-5: No disc herniation or bulge is identified. No evidence of neural foraminal narrowing. No signif icant central canal stenosis C5-6: Mild loss of disc height. Small endplate osteophytes. Mild disc bulging, eccentric toward the left where there is neural foraminal narrowing.. Mild central canal stenosis. C6-7: Mild loss of disc height and disc osteophytes which are eccentric toward the left causing left neural foraminal narrowing. There is mild narrowing of the AP dimension of the central canal. C7-T1: No disc herniation or bulge is identified. No evidence of neural foraminal narrowing. No signi ficant central canal stenosis IMPRESSION: Normal cord signal. Degenerative disc changes at C5-6 and C6-7 cause left neural foraminal narrowing. DATA REPOSITORY:
--- NOTE | 2022-10-20 08:00 | DI.MRI_ITS ---
Exam(s) MR BRAIN WO EXAM: MR BRAIN WO CLINICAL HISTORY: MULTIPLE SCLEROSIS,G35. TECHNIQUE: Multiplanar multisequence MRI of the brain was performed. CONTRAST MATERIAL: Noncontrast COMPARISON: MR MR BRAIN WO/W from 04/30/2020 FINDINGS: VENTRICLES AND EXTRA AXIAL SPACES: Normal in size and morphology for the patient's age. HEMORRHAGE: None. CEREBRAL PARENCHYMA: No focus of restricted diffusion to suggest acute infarct. No space-occupying le denise identified. Stable high signal focus in left frontal lobe. Stable right callosal lesion. A fe w other tiny high signal lesions are seen. No new lesions. MIDLINE SHIFT: None. BRAINSTEM/CEREBELLUM: Normal. CALVARIUM: Normal.. VISUALIZED PARANASAL SINUSES/MASTOIDS: Clear. OTHER FINDINGS: Orbits and pituitary are unremarkable. IMPRESSION: Stable high signal white matter foci. No new abnormalities. DATA REPOSITORY:
== END 2022-10-20 00:50 ==
LOC: DI 00:30
PROVIDERS: PCP Nurse Practitioner Family; Visit Provider Psychiatry & Neurology Neurology
DX: G35 Multiple sclerosis (principal); G43.009 Migraine without aura, not intractable, without status migrainosus; M47.812 Spondylosis without myelopathy or radiculopathy, cervical region
CPT/HCPCS: 70551; 72141

== ENCOUNTER 2022-11-17 01:43 | Outpatient (CLI) | payer MEDICAID, SELFPAY ==
[2022-11-17 13:10] LABS: Abs Immature Grans 0.01 10^3/uL (0.0-0.06); Absolute Basophil Count 0.03 10^3/uL (0.0-0.2); Absolute Eosinophil Count 0.04 10^3/uL (0.0-0.7); Absolute Lymphocyte Count 2.08 10^3/uL (1.2-3.4); Absolute Neutrophil Count 3.77 10^3/uL (1.2-6.7); Basophils % 0.5; Eosinophils % 0.6; HCT 41.2 % (36.0-46.0); HGB 14.4 g/dL (11.2-15.7); Immature Grans % 0.2; Lymphocytes % 32.9; MCH 33.8 pg (27.0-33.0); MCV 97 fL (80-95); MPV 9.5 fL (8.0-11.0); Monocytes % 6.3; Neutrophils % 59.5; Platelet Count 209 10^3/uL (130-400); RBC 4.26 10^6/uL (3.93-5.22); RDW-SD 39.2 fL; WBC 6.33 10^3/uL (4.4-10.8)
[2022-11-17 13:15] LABS: ESR < 1 mm/hr (0-20)
[2022-11-17 13:49] LABS: C-Reactive Protein 0.07 mg/dL (0.0-0.3)
[2022-11-17 22:12] LABS: Rheumatoid Factor <8.6 IU/mL (<12.0)
[2022-11-20 09:47] LABS: Lyme Ab w Rflx to Lyme Confirm Negative (Negative)
[2022-11-20 09:50] LABS: Syphilis Serology (RPR) Negative (Negative)
[2022-11-20 14:54] LABS: Dilute Russell Viper Venom 28.6 secs (25.2-42.2); LA Cascade Summary (See Note); Silica Clotting Time 41.5 secs (30.2-48.4)
[2022-11-20 16:10] LABS: ANA Interpretation Negative (Negative)
== END 2022-11-17 01:44 | disposition home or self-care (01) ==
PROVIDERS: PCP Nurse Practitioner Family; Visit Provider Optometrist
DX: H35.063 Retinal vasculitis, bilateral (principal)
CPT/HCPCS: 36415; 85652; 87116; 85025; 86038; 86140; 86431; 86592; 86618

== ENCOUNTER 2023-02-05 01:00 | Outpatient (CLI) | payer MEDICAID, SELFPAY ==
--- NOTE | 2023-02-05 | DI.US_ITS ---
Exam(s) US PELVIS TRANSVAGINAL EXAM: US PELVIS TRANSVAGINAL CLINICAL HISTORY: FIBROIDS D21.9 BLOATING R14.0 PELVIC PAIN R10.2 G89.29 NABOTHIAN CYST N88.8. TECHNIQUE: Transabdominal and transvaginal pelvic ultrasound was performed using standard protocol. COMPARISON: US US PELVIS TRANSVAGINAL from 06/04/2020 FINDINGS: UTERUS: Position: Retroverted. Size: 7.1 long by 5.1 AP by 6.2 transverse cm Endometrium: 0.5 cm. Normal for patient's menstrual status. Myometrium: There are multiple uterine fibroids present. The largest is seen in the posterior body a nd measures 6.1 x 3.9 x 5.4 cm. Cervix: Nabothian cysts are seen. OVARIES: The ovaries were only visualized transabdominally. Right: 2.1 x 1.9 x 1.4 cm Cyst or mass: No suspicious cystic or solid masses. Left: 2.2 x 2.1 x 1.9 cm Cyst or mass: No suspicious cystic or solid masses. CUL-DE-SAC: Free fluid: None. Other: None. IMPRESSION: 1. Multiple uterine fibroids. The largest is seen in the posterior body and measures 6.1 x 3.9 x 5.4 cm. 2. Unremarkable bilateral ovaries. DATA REPOSITORY:
== END 2023-02-05 01:20 ==
LOC: DI 01:00
PROVIDERS: PCP Nurse Practitioner Family; Visit Provider Obstetrics & Gynecology
DX: D25.9 Leiomyoma of uterus, unspecified (principal); R10.2 Pelvic and perineal pain; R14.0 Abdominal distension (gaseous)
CPT/HCPCS: 76830; 76856

== ENCOUNTER 2023-03-23 00:51 | Outpatient (CLI) | payer MEDICAID, SELFPAY ==
--- NOTE | 2023-03-23 | DI.MRI_ITS ---
Exam(s) MR PELVIS WO EXAM: MR PELVIS WO CLINICAL HISTORY: LUMBAR BACK PAIN, CHRONIC SCIATICA, M54.59, SACROLILIAC PAIN PIOTR, M53.3 TECHNIQUE: Multiplanar multisequence MRI of Pelvis was performed COMPARISON: No exams were available for comparison FINDINGS: Bones: There is no fracture or contusion pattern. No bone marrow edema is seen. Joints: No significant joint effusion is present. The SI joints and symphysis pubis are well maintain ed. Musculotendinous structures: Musculotendinous structures demonstrate no abnormality. Intrapelvic structures: Enlarged uterus with multiple fibroids as noted on prior ultrasound. The irma dder is unremarkable. The ovaries appear normal. No free fluid.. IMPRESSION: Normal MRI examination of the pelvis. DATA REPOSITORY:
--- NOTE | 2023-03-23 | DI.MRI_ITS ---
Exam(s) MR LUMBAR SPINE WO EXAM: MR LUMBAR SPINE WO CLINICAL HISTORY: LUMBAR BACK PAIN, CHRONIC SCIATICA RT, M54.59, M54.31, PIRIFORMIS SYNDROME. TECHNIQUE: Multiplanar multisequence MRI of the Lumbar spine was performed. COMPARISON: CR XR SHOULDER RT COMPLETE 2+V from 04/11/2022 FINDINGS: Bones: The last intervertebral disc space is designated the L5/S1 level for the numbering purpose of this examination. The vertebral body heights are well maintained. Alignment is satisfactory. The ma rrow signal characteristics are unremarkable. Cord: The conus tip ends at the T12 level. It is of normal size and signal intensity. T12-L1: No disc herniations or bulges are present. No central spinal canal or neural foraminal stenos is. L1-2: No disc herniations or bulges are present. No central spinal canal or neural foraminal stenosis . L2-3: No disc herniations or bulges are present. No central spinal canal or neural foraminal stenosis . L3-4: No disc herniations or bulges are present. No central spinal canal or neural foraminal stenosis . L4-5: No disc herniations or bulges are present. Mild facet joint degenerative changes. No central spinal canal or neural foraminal stenosis. L5-S1: No disc herniations or bulges are present. Mild facet joint degenerative changes no central s aajy canal or neural foraminal stenosis. The visualized SI joints and sacrum are well maintained. Soft tissues: The paraspinal soft tissues are unremarkable. IMPRESSION: No evidence of disc herniation, significant spinal stenosis or neuroforaminal narrowing. DATA REPOSITORY:
== END 2023-03-23 01:11 ==
LOC: DI 00:52
PROVIDERS: PCP Nurse Practitioner Family; Visit Provider Nurse Practitioner Family
DX: M47.816 Spondylosis without myelopathy or radiculopathy, lumbar region; M54.59 Other low back pain
CPT/HCPCS: 72148; 72195

== ENCOUNTER → 2023-06-18 00:58 | Outpatient (CLI) | payer MEDICAID, SELFPAY ==
--- NOTE | 2023-06-18 | DI.MAMMO_ITS ---
Exam(s) MAMMO SCREENING EXAM: MAMMO SCREENING CLINICAL HISTORY: SCREENING, Z12.31 TECHNIQUE: Bilateral full field digital CC and MLO mammographic images were obtained with 3D tomosyn thesis and utilizing computer aided detection (CAD). COMPARISON: Available for comparison. FINDINGS: Masses/Architectural Distortion: None seen. Microcalcifications: There is a new tight cluster of microcalcifications in the upper outer quadrant of the right breast. Skin Thickening/Nipple Retraction: None. IMPRESSION: 1. New cluster of microcalcifications in the upper-outer quadrant of the right breast. 2. Spot magnification views are requested for further evaluation. BI-RADS Category 0 - Assessment Incomplete: Need additional imaging evaluation Breast Density - Category C - Heterogeneously dense Breast density category C or D implies that the patient has dense breast tissue. Dense breast tissue is very common and is not abnormal but dense breast tissue can make it harder to find cancer on a ma mmogram. Also, dense breast tissue may increase their breast cancer risk. This information about the result of the mammogram report was provided to the patient to raise their awareness. Use this report when you speak with the patient about their risks for breast cancer, which includes their family hist ory. At that time, you may recommend for more screening tests (Ultrasound or MRI) as they might be us eful based on their risk. A negative radiographic report should not delay biopsy if a dominant or clinically suspicious mass is present. Up to ten percent of cancers are not identified on mammography. A negative report may reinforce clinical impression. Adenosis and dense breasts may obscure an underlying neoplasm. False positive reports average 6 to 10%. Patient will receive a letter notifying them of these results.
== END ==
PROVIDERS: PCP Nurse Practitioner Family; Visit Provider Nurse Practitioner Family
DX: Z12.31 Encounter for screening mammogram for malignant neoplasm of breast (principal)
CPT/HCPCS: 77063; 77067

== ENCOUNTER 2023-06-22 00:57 | Outpatient (CLI) | payer MEDICAID, SELFPAY ==
--- NOTE | 2023-06-22 | DI.US_ITS ---
Exam(s) MG MAMMO SCREEN CALL BACK UNI US BREAST RT LIMITED EXAM: MG MAMMO SCREEN CALL BACK UNI-RIGHT AND COMPLETE RIGHT BREAST ULTRASOUND CLINICAL HISTORY: F/U MAMMO, NEW CLUSTER MICROCALCIFICATIONS UPPER OUTER QUADRANT RT BREAST. TECHNIQUE: Unilateral spot mammographic 2D Mag images obtained. Complete right breast Ultrasound was also performed, including all 4 quadrants, the retroareolar douglas on, and the ipsilateral axilla. COMPARISON: Prior mammograms were reviewed. This additional imaging was performed due to findings described on the recent screening mammogram of 06/18/2023. FINDINGS: DIAGNOSTIC MAMMOGRAM: Additional 2D mammographic views performed todayrevealed the microcalcification group. This group is somewhat suspicious We proceeded with ultrasound to determine if this microcalcification group can be localized to a smal l nodule COMPLETE RIGHT BREAST ULTRASOUND: Ultrasound performed today reveals no evidence of solid or significant cystic lesions in all 4 quadra nts. Scanning of the ipsilateral axilla reveals no significant adenopathy. IMPRESSION: 1. New microcalcification group in the upper quadrant of the right breast which requires stereotacti c biopsy. The patient was informed of these findings and recommendations by myself prior to leaving the departm ent today. Findings are recommendations called by myself today to the referring nurse practitioner. BI-RADS Category 4 - Suspicious Abnormality: Biopsy should be considered Breast Density - Category C - Heterogeneously dense Breast density Category C or D implies that the patient has dense breast tissue. Dense breast tissue can make it harder to find cancer on a mammogram. Dense breast tissue is also associated with an incr eased risk of breast cancer. This information about the result of the mammogram report was provided to the patient to raise their awareness. Use this report when you speak with the patient about their risks for breast cancer, which includes their family history. At that time, you may recommend additional screening tests (Ultrasoun d or MRI) as these tests may add significant information. A negative radiographic report should not delay biopsy if a dominant or clinically suspicious mass is present. Up to ten percent of cancers are not identified on mammography. A negative report may reinforce clinical impression. Adenosis and dense breasts may obscure an underlying neoplasm. False positive reports average 6 to 10%. Patient will receive a letter notifying them of these results.
== END 2023-06-22 01:17 ==
LOC: DI 00:57
PROVIDERS: PCP Nurse Practitioner Family; Visit Provider Nurse Practitioner Family
DX: Z12.31 Encounter for screening mammogram for malignant neoplasm of breast (principal); N63.11 Unspecified lump in the right breast, upper outer quadrant
CPT/HCPCS: 76642; 77063; 77067

== ENCOUNTER 2024-05-20 02:39 | Outpatient (CLI) | payer OTHER, SELFPAY ==
[2024-05-20 16:20] LABS: TSH (W/Ref FT4) 1.39 uIU/mL (0.36-3.74)
== END 2024-05-20 02:40 | disposition home or self-care (01) ==
LOC: LBO 02:39
PROVIDERS: Visit Provider Obstetrics & Gynecology
DX: R23.2 Flushing (principal)
CPT/HCPCS: 36415; 84443

== ENCOUNTER 2024-06-30 11:47 | Outpatient (CLI) | payer OTHER, SELFPAY ==
--- NOTE | 2024-06-30 10:30 | DI.RAD_ITS ---
Exam(s) XR HIP PELVIS ADULT BL EXAM: XR HIP PELVIS ADULT BL CLINICAL HISTORY: BILATERAL HIP PAIN. TECHNIQUE: 2D digital imaging was performed. Three views. COMPARISON: No exams were available for comparison FINDINGS: BONES: No acute fracture is present. No bony destructive lesion is seen. JOINTS: No dislocation present. The hip joint spaces are maintained. Minimal acetabular spurring S I joints and pubic symphysis are unremarkable. SOFT TISSUE: Normal. IMPRESSION: Unre minimal degenerative changes. DATA REPOSITORY: RADIATION DOSE DELIVERED:
== END 2024-06-30 11:48 | disposition home or self-care (01) ==
LOC: DIORS 11:48
PROVIDERS: PCP Nurse Practitioner Family; Visit Provider Student in an Organized Health Care Education/Training Program
DX: M25.551 Pain in right hip (principal); M25.552 Pain in left hip
CPT/HCPCS: 73521

== ENCOUNTER 2024-07-04 02:52 | Outpatient (CLI) | payer OTHER, SELFPAY ==
--- OUTSIDE RECORDS SUMMARY | 2024-07-04 02:58 | XMS_ITS | Continuity of Care Document ---
Author Organization [facility] Ambulatory Clinics Address [address] [place] [address] Care Team Providers Care Hat Blocking Machine Operator Name Role Phone De MADDOX, Dea Primary Care Physician [phone] Encounter [facility] NBR [id number] Date(s): 10/09/23 - 10/09/23 [facility] Ambulatory Clinics [address] [place], [place] [address] Encounter Diagnosis Sacroiliac joint dysfunction of both sides(Discharge Diagnosis) - 10/09/23 Low back pain(Discharge Diagnosis) - 10/09/23 Facet arthropathy, lumbar(Discharge Diagnosis) - 10/09/23 Discharge Disposition: Home or Self Care Attending Physician: Kim Patterson DO Referring Physician: Dea Kc MD Allergies, Adverse Reactions, Alerts Substance Reaction Severity Status Dust Unknown Active Pollen Unknown Active Medications hyoscyamine 0.[address] ONE TABLET UNDER THE TONGUE EVERY 4 HOURS, MAXIMUM DAILY DOSE = 6 TABLET Start Date: 10/09/23 Status: Ordered Motegrity 2 mg oral tablet TAKE 1 TABLET BY MOUTH DAILY Start Date: 10/09/23 Status: Ordered Myrbetriq 25 mg oral tablet, extended release TAKE ONE TABLET BY MOUTH ONCE DAILY Start Date: 10/09/23 Status: Ordered pantoprazole 40 mg oral delayed release tablet TAKE ONE TABLET BY MOUTH EVERY DAY Start Date: 10/09/23 Status: Ordered polyethylene glycol 3350 oral powder for reconstitution DISSOLVE 17 GRAMS (LINE IN CAP) IN LIQUID AND DRINK TWO TIMES A DAY Start Date: 10/09/23 Status: Ordered rizatriptan 10 mg oral tablet, disintegrating TAKE ONE TABLET BY MOUTH AT THE ONSET OF HEADACHE, IF NO RELIEF MAY REPEAT 1 TABLET AFTER AT LEAST 2 HOURS MAXIMUM DAILY DOSE = THREE TABLET Start Date: 10/09/23 Status: Ordered Trulance 3 mg oral tablet TAKE ONE TABLET BY MOUTH EVERY DAY Start Date: 10/09/23 Status: Ordered Problem List Condition Confirmation Course Effective Dates Status Health St atus Informant Multiple sclerosis Confirmed Active Procedures Procedure Date Related Diagnosis Body Site Status Hysterectomy 04/24/23 Completed Appendectomy 1 Completed 1march 2002 Vital Signs Most recent to oldest [Reference Range]: 1 Temperature Tympanic [36.6-38.1 Deg C] 3 6.8 Deg C (10/09/23 10:20 AM) Peripheral Pulse Rate [60-100 bpm] 82 bp m (10/09/23 10:20 AM) Respiratory Rate [12-24 br/min] 18 br/mi n (10/09/23 10:20 AM) Blood Pressure [90-140/60-90 mmHg] 117/7 6mmHg (10/09/23 10:20 AM) Mean Arterial Pressure, Cuff [70-110 mmH g] 90 mmHg (10/09/23 10:20 AM) Weight 48.08 kg (10/09/23 10:20 AM) Weight Measured (lbs) 105.998 lb (10/09/23 10:20 AM) Weight Dosing 48.080 kg (10/09/23 10:20 AM) Leon Body Weight Calculated 49.665 kg (10/09/23 10:20 AM) Height 157 cm (10/09/23 10:20 AM) Height/Length Measured (inches) 61.81 in ch (10/09/23 10:20 AM) BSA Measured 1.45 m2 (10/09/23 10:20 AM) Body Mass Index 19.51 kg/m2 (10/09/23 10:20 AM) Social History Social History Type Response Tobacco Former tobacco user Tobacco Use:. 1 Sex 1smoke from age [age] Patient Care team information Care Team Personnel Name: Dea Kc MD Position: No Access Member Role: Primary Care Physician Address: Address: [address] [place] [id number]
--- OUTSIDE RECORDS SUMMARY | 2024-07-04 02:58 | XMS_ITS | Encounter Summary ---
Author [facility] [place] [address] Care Team Providers Care Electrostatic Painter Name Role Phone Dea Kc APRN Primary Care Provider [phone] Encounter Details Date Type Department Care Team (Late st Contact Info) Description 02/23/2024 [place] [address] Kim Gonzalez MD [facility] [place] [address] Irritable bowel syndrome with constipation Social History Tobacco Use Types Packs/Day Years Used Date Smoking Tobacco: Former Cigarettes Smokeless Tobacco: Never Alcohol Use Standard Drinks/Week Comments Not Currently 0 (1 standard drink = 0.6 oz pur e alcohol) IPV Inpatient Questions Answer Date Recorded Does Anyone Try to Keep You From Having Contact with Others or Doing Things Outside Your Home? unable to answer (comment required) 04/25/2023 Feels Threatened by Someone unable to an swer (comment required) 04/25/2023 Feels Unsafe at Home or Work/School unab le to answer (comment required) 04/25/2023 Physical Signs of Abuse Present no 04/25/2023 Sex and Gender Information Value Date Recorded Sex Assigned at Not on file Gender Identity Not on file Sexual Orientation Not on file documented as of this encounter Plan of Treatment Upcoming Encounters Date Type Department Care Team (Late st Contact Info) Description 07/17/2024 1:00 PM EST Office Visit [place]stetrics [place] [address] Roma Lara MD [facility] [place]STET[place] [address] 10/27/2024 11:00 AM EST TH Visit (TeleHealth) [place] [address] Kim Gonzalez MD [facility] [address] documented as of this encounter Visit Diagnoses Diagnosis Irritable bowel syndrome with constipation Irritable bowel syndrome documented in this encounter Care Teams Electrostatic Painter Relationship Specialty Start Date End Date Dea Kc APRN [place] [address] PCP - General Family Medicine 04/12/23 documented as of this encounter
--- OUTSIDE RECORDS SUMMARY | 2024-07-04 02:58 | XMS_ITS | Encounter Summary ---
Author Organization [facility] [place] [address] Care Team Providers Care Jewelry Salesperson Name Role Phone Dea Kc APRN Primary Care Provider [phone] Reason for Visit * Reason Onset Date Comments Medication Refill 03/18/2024 Encounter Details Date Type Department Care Team (Late st Contact Info) Description 03/18/2024 [place] [address] Kim Gonzalez MD [facility] [place] [address] Irritable bowel syndrome with constipation Social History [...] EST Office Visit Obstetrics [place] [address] Roma Lara MD [facility] [address] [place] [address] 10/27/2024 11:00 AM EST TH Visit (TeleHealth) [place] [address] Kim Gonzalez MD [facility] [place] [address] documented as of this encounter Visit Diagnoses Diagnosis Irritable bowel syndrome with constipation Irritable bowel syndrome documented in this encounter Care Teams Jewelry Salesperson Relationship Specialty Start Date End Date Dea Kc APRN [place] [place] [address] PCP - General Family Medicine 04/12/23 documented as of this encounter
--- OUTSIDE RECORDS SUMMARY | 2024-07-04 02:58 | XMS_ITS | Encounter Summary ---
Author Organization [facility]an [place] [address] Care Team Providers Care Shirt Ironer Supervisor Name Role Phone Dea Kc APRN Primary Care Provider [phone] Reason for Visit * Reason Comments Medication Refill Encounter Details Date Type Department Care Team (Late st Contact Info) Description 12/26/2023 Ref[place] [phone] Kim Gonzalez MD [facility] [place] [address] Irritable bowel syndrome with constipation Social History Tobacco Use Types Packs/Day Years Used Date Smoking Tobacco: Former Cigarettes Smokeless Tobacco: Never Alcohol Use Standard Drinks/Week Comments Not Currently 0 (1 standard drink = 0.6 oz pur e alcohol) [facility] Inpatient Questions Answer Date Recorded Does Anyone [...] EST Office Visit Obstetrics [place] [address] Roma Lara MD [facility] OBSTETR[place] [address] 10/27/2024 11:00 AM EST TH Visit (TeleHealth) [place] [address] Kim Gonzalez MD [facility] [place] [address] documented as of this encounter Visit Diagnoses Diagnosis Irritable bowel syndrome with constipation Irritable bowel syndrome documented in this encounter Care Teams Shirt Ironer Supervisor Relationship Specialty Start Date End Date Dea Kc, SUPERVISOR FRUIT GRADING [place] [place] [address] PCP - General Family Medicine 04/12/23 documented as of this encounter
--- OUTSIDE RECORDS SUMMARY | 2024-07-04 02:58 | XMS_ITS | Encounter Summary ---
Author Organization [facility] [place] [address] Care Team Providers Care Garment Examiner Name Role Phone Dea Kc APRN Primary Care Provider [phone] Reason for Visit * Reason Comments Medication Refill Encounter Details Date Type Department Care Team (Late st Contact Info) Description 03/17/2024 [place] [phone] Kim Gonzalez MD [facility] [place] [address] Irritable bowel syndrome with constipation Social History Tobacco Use Types Packs/Day Years Used Date Smoking Tobacco: Former Cigarettes Smokeless Tobacco: Never Alcohol Use Standard Drinks/Week Comments Not Currently 0 (1 standard drink = 0.6 oz pur e alcohol) [facility] Inpatient Questions Answer Date Recorded Does [...] EST Office Visit Obstetrics [place] [address] Roma Lara MD [facility] OBSTETRICS [place] [address] 10/27/2024 11:00 AM EST TH Visit (TeleHealth) [place] [address] Kim Gonzalez MD [facility] [place] [address] documented as of this encounter Visit Diagnoses Diagnosis Irritable bowel syndrome with constipation Irritable bowel syndrome documented in this encounter Care Teams Garment Examiner Relationship Specialty Start Date End Date Dea Kc, PRINTED CIRCUIT BOARD LAYOUT DESIGNER [place] [address] [place] [address] PCP - General Family Medicine 04/12/23 documented as of this encounter
--- OUTSIDE RECORDS SUMMARY | 2024-07-04 02:58 | XMS_ITS | Continuity of Care Document ---
Author Organization [facility] Ambulatory Clinics Address [address] [place] [address] Care Team Providers Care Cylinder Checker Name Role Phone JOSE LUIS GRACE APRN Primary Care Physician Encounter [facility] NBR [id number] Date(s): 12/26/23 - 12/26/23 [facility] Ambulatory Clinics [address] [place] [address] Encounter Diagnosis Sacroiliac joint dysfunction(Discharge Diagnosis) - 12/26/23 Discharge Disposition: Home or Self Care Attending Physician: Kim Patterson DO Referring Physician: JOSE LUIS GRACE APRN Allergies, Adverse Reactions, Alerts Substance Reaction Severity Status naproxen Unknown Unknown Active aspirin Unknown Unknown Active Dust Unknown Active Pollen Unknown Active Assessment and Plan Future Appointments Medications hyoscyamine 0.[address] [...] Status Hysterectomy 04/24/23 Completed Appendectomy 1 Completed 2002 Vital Signs Most recent to oldest [Reference Range]: 1 Temperature Temporal Artery [36-38 Deg C ] 36.1 Deg C (12/26/23 1:09 PM) Peripheral Pulse Rate [60-100 bpm] 83 bp m (12/26/23 1:09 PM) Respiratory Rate [12-24 br/min] 18 br/mi n (12/26/23 1:09 PM) Blood Pressure [90-140/60-90 mmHg] 136/7 7mmHg (12/26/23 1:09 PM) Mean Arterial Pressure, Cuff [65-140 mmH g] 97 mmHg (12/26/23 1:09 PM) Weight 47.63 kg (12/26/23 1:09 PM) Weight Measured (lbs) 105.006 lb (12/26/23 1:09 PM) Weight Dosing 47.630 kg (12/26/23 1:09 PM) [place] Body Weight Calculated 45.5 kg (12/26/23 1:09 PM) Height 62 cm (12/26/23 1:09 PM) Height/Length Measured (inches) 24.41 in ch (12/26/23 1:09 PM) BSA Measured 0.91 m2 (12/26/23 1:09 PM) Body Mass Index 123.91 kg/m2 (12/26/23 1:09 PM) Social History Social History Type Response Tobacco Former tobacco user Tobacco Use:. 1 Sex 1smoke from age [age] Patient Care team information Care Team Personnel Name: JOSE LUIS GRACE APRN Position: No Access Member Role: Primary Care Physician Address: Address: [address] [address]- [place]"
--- OUTSIDE RECORDS SUMMARY | 2024-07-04 02:58 | XMS_ITS | Encounter Summary ---
Author Organization [facility] [place] [address] Care Team Providers Care Fpga Engineer Name Role Phone Dea Kc APRN Primary Care Provider Reason for Visit * Reason Comments New Med Request Encounter Details Date Type Department Care Team (Late st Contact Info) Description 05/06/2024 Ref[place] [phone] Kim Gonzalez MD [facility] [place] [address] Irritable bowel syndrome with constipation Social History Tobacco Use Types Packs/Day Years Used Date Smoking Tobacco: Former Cigarettes Smokeless Tobacco: Never Alcohol Use Standard Drinks/Week Comments Not Currently 0 (1 standard drink = 0.6 oz pur e alcohol) [facility] Inpatient Questions Answer Date Recorded Does Anyone [...] EST Office Visit Obstetrics [place] [address] Roma Lara MD [facility] OBSTETRICS [place] [address] 10/27/2024 11:00 AM EST TH Visit (TeleHealth) [place] [address] Kim Gonzalez MD [facility] [place] [address] documented as of this encounter Visit Diagnoses Diagnosis Irritable bowel syndrome with constipation Irritable bowel syndrome documented in this encounter Care Teams Fpga Engineer Relationship Specialty Start Date End Date Dea Kc, INFRASTRUCTURE SOLUTIONS ARCHITECT Maria [address] [place] [address] PCP - General Family Medicine 04/12/23 documented as of this encounter
--- OUTSIDE RECORDS SUMMARY | 2024-07-04 02:58 | XMS_ITS | Encounter Summary ---
Author Organization [facility] [place] [address] Care Team Providers Care Rental Sales Agent Name Role Phone Dea Kc APRN Primary Care Provider [phone] Reason for Visit * Reason Comments Medication Refill Encounter Details Date Type Department Care Team (Late st Contact Info) Description 03/17/2024 Ref[place] [address] Briseida Garcia MD [facility] DR [place] [address] Irritable bowel syndrome with constipation Social History Tobacco Use Types Packs/Day Years Used Date Smoking Tobacco: Former Cigarettes Smokeless Tobacco: Never Alcohol Use Standard Drinks/Week Comments Not Currently 0 (1 standard drink = 0.6 oz pur e alcohol) [facility] Inpatient Questions Answer Date Recorded Does Anyone [...] Encounters Date Type Department Care Team (Late Contact Info) Description 07/17/2024 1:00 PM EST Office Visit Obstetrics [place] [address] Roma Lara MD [facility] DR OBSTETRICS [place] [address] 10/27/2024 11:00 AM EST TH Visit (TeleHealth) [place] [address] Kim Gonzalez MD [facility] [place] [address] documented as of this encounter Visit Diagnoses Diagnosis Irritable bowel syndrome with constipation Irritable bowel syndrome documented in this encounter Care Teams Rental Sales Agent Relationship Specialty Start Date End Date Dea Kc, GUEST SERVICE REPRESENTATIVE [address] [place] [address] PCP - General Family Medicine 04/12/23 documented as of this encounter
--- OUTSIDE RECORDS SUMMARY | 2024-07-04 02:58 | XMS_ITS | Encounter Summary ---
Author Organization [facility] [address] Care Team Providers Care Clay Dry Press Operator Name Role Phone Dea Kc APRN Primary Care Provider [phone] Reason for Visit * Reason Onset Date Comments Medication Refill 07/03/2024 Encounter Details Date Type Department Care Team (Late st Contact Info) Description 07/03/2024 Refill [place] [address] Kim Gonzalez MD [facility] [place] [address] Irritable bowel syndrome with constipation Social History [...] EST Office Visit Obstetrics [place] [address] Roma Lara MD [facility] [address] OBSTETRICS [place] [address] 10/27/2024 11:00 AM EST TH Visit (TeleHealth) [place] [address] Kim Gonzalez MD [facility] [place] [address] documented as of this encounter Visit Diagnoses Diagnosis Irritable bowel syndrome with constipation Irritable bowel syndrome documented in this encounter Care Teams Clay Dry Press Operator Relationship Specialty Start Date End Date Dea Kc APRN [place] [address] [place] [address] PCP - General Family Medicine 04/12/23 documented as of this encounter
--- OUTSIDE RECORDS SUMMARY | 2024-07-04 02:58 | XMS_ITS | Encounter Summary ---
Author Organization [facility] [place] [address] Care Team Providers Care Home Health Provider Name Role Phone Dea Kc APRN Primary Care Provider [phone] Reason for Visit * Reason Comments Medication Refill Encounter Details Date Type Department Care Team (Late st Contact Info) Description 07/03/2024 [place] [address] Kim Gonzalez MD [facility] [place] [address] Irritable bowel syndrome with constipation Social History Tobacco Use Types Packs/Day Years Used Date Smoking Tobacco: Former Cigarettes Smokeless Tobacco: Never Alcohol Use Standard Drinks/Week Comments Not Currently 0 (1 standard drink = 0.6 oz pur e alcohol) [facility] Inpatient Questions Answer Date Recorded Does Anyone [...] EST Office Visit Obstetrics [place] [address] Roma Lara MD [facility] [place] [address] 10/27/2024 11:00 AM EST TH Visit (TeleHealth) [place] [address] Kim Gonzalez MD [facility] [place] [address] documented as of this encounter Visit Diagnoses Diagnosis Irritable bowel syndrome with constipation Irritable bowel syndrome documented in this encounter Care Teams Home Health Provider Relationship Specialty Start Date End Date Dea Kc, DIVER PUMPER [place] [place] [address] PCP - General Family Medicine 04/12/23 documented as of this encounter
--- OUTSIDE RECORDS SUMMARY | 2024-07-04 02:58 | XMS_ITS | Encounter Summary ---
[place] [address] Care Team Providers Care Peoplesoft Financials Consultant Name Role Phone Dea Kc APRN Primary Care Provider [phone] Reason for Visit * Reason Onset Date Comments Prior Authorization 04/04/2024 Heather kaye insurance needs to meet deductible Encounter Details Date Type Department Care Team (Late st Contact Info) Description 04/04/2024 Notes Only Obstetrics [place] [address] Alvin Rosenberg LPN Prior Authorization (Mirabegron new insurance needs to meet deductible) Social History Tobacco Use Types Packs/Day Years [...] documented as of this encounter Progress Notes * Alvin Rosenberg LPN - 04/04/2024 12:11 PM EDT Pt leaves my- msg regarding mirabegron and new insurance. New insurance card obtained. Per [employer], mirabegron is covered and does not require PA. Augustina at [phone]. Phone call to pt. Msg left requesting call back. Who has been prescribing for her as rx is written by historical provider. What pharmacy is she using? Please forward pt call to DICK Rosenberg. * Alvin Rosenberg LPN - 04/04/2024 12:11 PM EDT brittney grubbs ([employer]: [id number]) Drug is covered by current benefit plan. No further PA activity needed Drug [employer] Commercial Electronic PA Form (2016 NCPDP) documented in this encounter Plan of Treatment Upcoming Encounters Date Type Department Care Team (Late st Contact Info) Description 07/17/2024 1:00 PM EST Office Visit Obstetrics [place] [address] Roma Lara MD [facility] DR OBSTETRICS [place] [address] 10/27/2024 11:00 AM EST TH Visit (TeleHealth) [place] [address] Kim Gonzalez MD [facility] DR [place] [address] documented as of this encounter Visit Diagnoses Not on filedocumented in this encounter Care Teams Peoplesoft Financials Consultant Relationship Specialty Start Date End Date Dea Kc APRN [facility] [place] [address] PCP - General Family Medicine 04/12/23 documented as of this encounter
--- OUTSIDE RECORDS SUMMARY | 2024-07-04 02:58 | XMS_ITS | Encounter Summary ---
Author Organization [facility] Address [address] [place] [address] Care Team Providers Care Inspector Machine Cut Glass Name Role Phone Unknown, Provider Primary Care Provider Unava ilable Encounter Details Date Type Department Care Team (Late st Contact Info) Description 09/15/2019 Lab Requisition [facility] Pathology & Laboratory Medicine - [facility] [address] [place] [address] Unknown, Provider, Social History Tobacco Use Types Packs/Day Years Used Date Smoking Tobacco: Never Assessed Sex and Gender Information Value Date Recorded Sex Assigned at Not on file Gender Identity Not on file Sexual Orientation Not on file documented as of this encounter Plan of Treatment Not on file documented as of this encounter Procedures Procedure Name Priority Date/Time Associated Diagnosis Comments GIARDIA AND CRYPTOSPORIDIUM ANTIGENS Routine 09/13/2019 15:08 EST documented in this encounter Results * GIARDIA AND CRYPTOSPORIDIUM ANTIGENS (09/13/2019 15:08 EST) Giardia and Cryptosporidium Cryptosporidium Antigen Neg and Giardia Antigen Neg Cryptosporidium Antigen Neg and Giardia Antigen Neg 0 11:15 EST [facility] Feces FECES / Unknown 09/13/2019 1 5:08 EST 09/15/2019 16:38 EST Provider Unknown MICROBIOLOGY - GENER AL ORDERABLES [facility] [address] [place] [address] documented in this encounter Visit Diagnoses Not on filedocumented in this encounter Care Teams Inspector Machine Cut Glass Relationship Specialty Start Date End Date Unknown, Provider, PCP - General 11/01/22 documented as of this encounter
--- OUTSIDE RECORDS SUMMARY | 2024-07-04 02:58 | XMS_ITS | Encounter Summary ---
Author Organization [facility] [place] [address] Care Team Providers Care Fisheries Manager Name Role Phone Dea Kc APRN Primary Care Provider [phone] Reason for Visit * Reason Onset Date Comments Medication Refill 05/07/2024 Encounter Details Date Type Department Care Team (Late st Contact Info) Description 05/07/2024 Refill Obstetrics [place] [address] Roma Lara MD [facility] OBSTETRICS [place] [address] Hot flashes Social History Tobacco Use Types Packs/Day Years [...] EST Office Visit Obstetrics [place] [address] Roma Lara MD [facility] [address] OBSTETRICS [place] [address] 10/27/2024 11:00 AM EST TH Visit (TeleHealth) [place] [address] Kim Gonzalez MD [facility] [place] [address] documented as of this encounter Visit Diagnoses Diagnosis Hot flashes Symptomatic menopausal or female climacteric states documented in this encounter Care Teams Fisheries Manager Relationship Specialty Start Date End Date Dea Kc APRN [facility] [place] [address] PCP - General Family Medicine 04/12/23 documented as of this encounter
--- OUTSIDE RECORDS SUMMARY | 2024-07-04 02:58 | XMS_ITS | Encounter Summary ---
Author Organization [facility] Address [address] [place] [address] Care Team Providers Care Cemetery Workers Supervisor Name Role Phone Unknown, Provider Primary Care Provider Unava ilable Encounter Details Date Type Department Care Team (Late st Contact Info) Description 09/15/2019 Lab Requisition [facility] Pathology & Laboratory Medicine - [address] [address] Unknown, Provider, Social History Tobacco Use Types Packs/Day Years Used Date Smoking Tobacco: Never Assessed Sex and Gender Information Value Date Recorded Sex Assigned at Not on file Gender Identity Not on file Sexual Orientation Not on file documented as of this encounter Plan of Treatment Not on file documented as of this encounter Procedures Procedure Name Priority Date/Time Associated Diagnosis Comments FECAL BACTERIAL PATHOGENS BY PCR Routine 09/13/2019 15:08 EST documented in this encounter Results * FECAL BACTERIAL PATHOGENS BY PCR (09/13/2019 15:08 EST) Salmonella PCR Negative Negative 09/16/2019 12:08 EST [facility] Shigella/Enteroin vasive E. coli Negative Negative 09/16/2019 12:08 EST [facility] HN LAB CAMPYLOBACTER PCR Negative Negative 09/16/2019 12:08 EST [facility] Shiga Toxin PCR Negative Negative 0 12:08 EST [facility] Feces FECES / Unknown 09/13/2019 1 5:08 EST 09/15/2019 16:39 EST Provider Unknown MICROBIOLOGY - GENER AL ORDERABLES [facility] [address] [place] [address] documented in this encounter Visit Diagnoses Not on filedocumented in this encounter Care Teams Cemetery Workers Supervisor Relationship Specialty Start Date End Date Unknown, Provider, PCP - General 11/01/22 documented as of this encounter
--- OUTSIDE RECORDS SUMMARY | 2024-07-04 02:58 | XMS_ITS | Clinical Summary ---
Author Organization [facility] [place] [address] Care Team Providers Care Animal Laboratory Technician Name Role Phone Dea Kc APRN Primary Care Provider [phone] Allergies Active Allergy Reactions Criticality Noted Date Comments Amitriptyline Low 05/20/2020 Aspirin 12/04/2022 Dimethyl Fumarate Low 05/20/2020 Fingolimod High 05/20/2020 Fluoxetine Low 05/20/2020 Gabapentin Low 05/20/2020 exhaustion Glatiramer (Copolymer 1) Low 05/20/2020 Ibuprofen 12/04/2022 Ulcers Venlafaxine Other (See Comments) Medium 12/22/2015 Headache Medications Medication Sig Dispensed Refills Start Date End Date Status pantoprazole EC (Protonix) 40 mg Tablet, Delayed Release (E.C.) Take 40 mg by mouth daily. Active mirabegron (Myrbetriq) 50 mg Tablet Sustained Release 24 hr Take 50 mg by mouth daily. 05/31/2017 Active rizatriptan (MAXALT-DISH UP PERSON) 10 mg Tablet, Rapid Dissolve Take 10 mg by mouth as needed. 04/18/2021 Active cholecalciferol, Vitamin D3, 25 mcg (1,000 unit) Capsule daily. 04/19/2020 Acti ve magnesium oxide 400 mg magnesium Capsule daily. Calcium and zinc 04/19/2020 Active Retin-A 0.01 % Gel APPLY TO FACE ONCE DAILY. 04/03/2023 Active mecobalamin, vitamin B12, 1,000 mcg Tablet, Rapid Dissolve daily. 04/19/2020 Active Acetylcysteine (NAC) 600 mg capsule Take by mouth. 2 pills bid Active omega-3 acid ethyl esters (Lovaza) 1 gram capsule Take 2 g by mouth 2 times daily. Active ascorbic acid, vitamin C, (Vitamin C) 100 mg tablet Take 100 mg by mouth daily. Active folic acid (Vitamin B9) 1 mg tablet Take 1 mg by mouth daily. Active UNABLE TO FIND Natures bounty (Hair, skin, and nails) Active turmeric root extract 500 mg capsule daily. 04/19/2020 Active estradioL (Estrace) 1 mg tabletIndications:Hot flashes TAKE ONE TABLET BY MOUTH EVERY DAY 90 tablet 3 05/07/2024 Active plecanatide (Trulance) 3 mg tabletIndications:Irr itable bowel syndrome with constipation Take 1 tablet by mouth daily. 90 tablet 3 05/06/2024 Active polyethylene glycoL (Miralax) 17 gram/dose PowderIndications:Irr itable bowel syndrome with constipation DISSOLVE 17 GRAMS (LINE IN CAP) IN LIQUID AND DRINK BY MOUTH TWICE DAILY 714 g 3 06/06/2024 Active hyoscyamine SL (Levsin SL) 0.125 mg sublingual tabletIndications:Irr itable bowel syndrome with constipation Take 1 tablet by mouth every 4 hours as needed for Cramping. MAXIMUM DAILY DOSE = 6 TABLET 30 tablet 3 07/03/2024 Active Active Problems Problem Noted Date Diagnosed Date Vaginal discharge 10/24/2023 Gastroparesis 05/21/2023 Irritable bowel syndrome with constipation 01/10 Adjustment disorder 12/12/2021 Functional dyspepsia 12/19/2020 Chronic constipation 12/19/2020 Encounters Date Type Department Care Team Description 07/03/2024 [place] [phone] Kim Gonzalez MD Irritable bowel syndrome with constipation 07/03/2024 [place] [phone] Kim Gonzalez MD Irritable bowel syndrome with constipation 06/09/2024 Telephone Obstetrics [place] [phone] Roma Lara MD 06/05/2024 [place] [address] Kim Gonzalez MD Irritable bowel syndrome with constipation 05/07/2024 Refill Obstetrics [place] [address] Roma Lara MD Hot flashes 05/06/2024 [place] [address] Kim Gonzalez MD Irritable bowel syndrome with constipation 05/05/2024 Refill Obstetrics [place] [address] Roma Lara MD Hot flashes 04/28/2024 8:30 AM EDT TH Visit (TeleHealth) [place] [address] Kim Gonzalez MD Irritable bowel syndrome with constipation 04/08/2024 Orders Only Obstetrics [place] [address] Nicole Moses MD 04/04/2024 Notes Only Obstetrics [place] [address] Alvin Rosenberg, DISTRICT PLANT SUPERINTENDENT Prior Authorization ([facility] new insurance needs to meet deductible) from Last 3 Months Social History Tobacco Use Types Packs/Day Years Used Date Smoking Tobacco: Former Cigarettes Smokeless Tobacco: Never Tobacco Cessation:Counseling Given: Not Answered Alcohol Use Standard Drinks/Week Comments Not Currently 0 (1 standard drink = 0.6 oz pur e alcohol) [facility] Inpatient Questions Answer Date Recorded Does Anyone [...] on file Sexual Orientation Not on file Last Filed Vital Signs Vital Sign Reading Time Taken Comments Blood Pressure 124/82 01/04/2024 10:55 AM EDT Pulse 116 01/04/2024 10:55 AM EDT Temperature 37.4 ??C (99.4 ??F) 01/04/2024 10:55 AM E DT Respiratory Rate 14 01/04/2024 10:55 AM EDT Oxygen Saturation 100% 01/04/2024 10:55 AM EDT Inhaled Oxygen Concentration - - Weight 48.1 kg (106 lb) 10/24/2023 12:13 PM EST Height 157.5 cm (5' 2) 10/24/2023 12:13 PM EST Body Mass Index 19.39 10/24/2023 12:13 PM EST Plan of Treatment Upcoming Encounters Date Type Department Care Team (Late st Contact Info) Description 07/17/2024 1:00 PM EST Office Visit Obstetrics [place] [address] Roma Lara MD [facility] [address] [place] [address] 10/27/2024 11:00 AM EST TH Visit (TeleHealth) [place] [address] Kim Gonzalez MD [facility] [place] [address] Health Maintenance Due Date Last Done Comments CT Colonography 1972 Colonoscopy 1972 Colorectal Cancer Screening 1972 FIT DNA 1972 FIT 1972 Sigmoidoscopy (10 year) with FIT yearly 1972 Sigmoidoscopy 1972 HIV screen 01/25/1990 Hepatitis C Screening 01/25/1990 Hepatitis B vaccine (0-59 yrs) (1) 01/25/1991 Tetanus/Diphtheria/Pertussis Vaccines (1 - Tdap) 01/25 HPV test 01/25/2002 PAP Smear 01/25/2002 Breast Cancer Share Decision Needed 2012 Breast Cancer screening 2012 Zoster vaccine (1 of 2) 01/25/2022 Covid-19 Vaccine ( season) 2024 Influenza (Flu) vaccine (1 o f 1 - Influenza standard series) 05/04/2024 Medical Devices Implanted Type Area Loan Interviewer Device Identifier Shelf Expiration Date Model / Serial / Lot Breast Clip-08/16/2023 Implanted:Qty: 1 on 08/16/2023 by Suzanna Izquierdo MD Breast Clip Right: Breast Description:CAT Kit Transvaginal Sling Stress Urinary Incontinence [facility] ([id number]) - [id number] Implanted:Qty: 1 on 04/25/2023 by Roma Lara MD at [facility] IMPLANTS N/A: Pelvis [employer] JE[employer]ETTE IA HALLE-[id number] / / Procedures Procedure Name Priority Date/Time Associated Diagnosis Comments LAB SCAN 05/21/2024 12:00 AM EDT from Last 3 Months Results * Scan Doc: Lab (05/21/2024 12:00 AM EDT) Narrative 05/21/2024 12:00 AM EDT Ordered by an unspecified provider. Scanning Provider MEDIA MGR SCAN EXT O RDR/RSLT from Last 3 Months Advance Directives * Attempt Cardiopulmonary Resuscitation - Inpatient (Latest Code Status on File) Date Activated Date Inactivated Comments 10/24/2023 9:35 PM 10/26/2023 1:45 PM Question Answer Comments Code Status decision made by: Patient * Attempt Cardiopulmonary Resuscitation - Inpatient Date Activated Date Inactivated Comments 10/24/2023 3:42 PM 10/24/2023 9:35 PM Question Answer Comments Code Status decision made by: Patient Care Teams Animal Laboratory Technician Relationship Specialty Start Date End Date Dea Kc, D[employer]ER [employer] WASHER [address] [place] [address] PCP - General Family Medicine 04/12/23
--- OUTSIDE RECORDS SUMMARY | 2024-07-04 02:58 | XMS_ITS | Encounter Summary ---
Author Organization [facility] Address [address] [place] [address] Care Team Providers Care Conveyor Loader Name Role Phone Unknown, Provider Primary Care Provider Clare handley Encounter Details Date Type Department Care Team (Late st Contact Info) Description 11/17/2022 Lab Requisition [facility] Pathology & Laboratory Medicine - [facility] [address] [place] [address] Outr Resulting Lab, Provider Social History Tobacco Use Types Packs/Day Years Used Date Smoking Tobacco: Never Assessed Interpersonal Safety Answer Date Record ed Physically Hurt Never 07/27/2020 Verbally Threaten Not on file 07/27/2020 Sex and Gender Information Value Date Recorded Sex Assigned at Not on file Gender Identity Not on file Sexual Orientation Not on file documented as of this encounter Plan of Treatment Not on file documented as of this encounter Procedures Procedure Name Priority Date/Time Associated Diagnosis Comments HN LAB PATH REVIEW - COAG Today 11/17/2022 13:00 EDT LUPUS ANTICOAGULANT CASCADE Today 11/17/2022 13:00 EDT HOLD SST Today 11/17/2022 13:00 EDT SYPHILIS SEROLOGY Today 11/17/2022 13: 00 EDT LYME AB Today 11/17/2022 13:00 EDT RHEUMATOID FACTOR Today 11/17/2022 13: 00 EDT ANTI NUCLEAR AB (BEBE), IFA Today 11/17/2022 13:00 EDT documented in this encounter Results * HN LAB PATH REVIEW - COAG (11/17/2022 13:00 EDT) Pathologist [facility] Pathology Review Comment - Coagulation Rain Ramos MD MSc 11/20/22 14:49 11/20/2022 14:49 EDT [facility] Blood VENOUS BLOOD / Unknown 11/17/2022 13:00 EDT 11/17/2022 21:35 EDT Provider Outr Resulting Lab HEMATOLOGY & PF4 ORDERABLES [facility] [address] [place] [address] * HOLD SST (11/17/2022 13:00 EDT) [facility] Hold Hold 11/17/2022 22:46 EDT [facility] Blood VENOUS BLOOD / Unknown 11/17/2022 13:00 EDT 11/17/2022 21:41 EDT Provider Outr Resulting Lab LAB INFO SER VICE AND SUPPORT & PHONE RESULT Performing Organization Address [facility]/ZIP Co de Phone Number [facility] [address] [place] [address] * SYPHILIS SEROLOGY (11/17/2022 13:00 EDT) [facility] Syphilis Serology Negative Negative 11/20/2022 9:46 EDT [facility] Blood VENOUS BLOOD / Unknown 11/17/2022 13:00 EDT 11/17/2022 21:41 EDT Provider Outr Resulting Lab IMMUNOLOGY A ND SEROLOGY ORDERABLES Performing Organization Address City/[facility]/ZIP Co de Phone Number [facility] [address] [place] [address] * LUPUS ANTICOAGULANT CASCADE (11/17/2022 13:00 EDT) Pathologist [facility] [place] Summary Final Interpretation: Negative for detection of lupus anticoagulant (LA). ??Where clinical suspicion for antiphospholipid syndrome is high, it may be appropriate to perform alternative LA or antiphospholipid assays. Recommendation: The laboratory criteria for Antiphospholipid Syndrome (aPS) include positive testing for one of the following on 2 or more occasions, at least 12 weeks apart: 1) Lupus anticoagulant, 2) Cardiolipin antibodies (IgG or IgM) in medium or high titer, 3) Tgie-6-rlhbtoojpflv 1 antibodies (IgG or IgM) in medium or rafael titer. Solid phase assays for Jeph-6-qrfeswqslonq 1 (B2GP1) and Cardiolipin antibodies are also recommended. Correlation with those results is advised. There was significant resident/fellow involvement in the diagnostic evaluation of this case. By the signature below, the attending physician certifies that they have reviewed the results of laboratory testing from the described specimen(s) and personally confirmed the above diagnosis rendered by Dr. Sarah Lopez. Rain Ramos MD 11/20/22 14:49 11/20/2022 14:49 EDT [facility] Comment:Lupus Anticoagulant not detected Dilute Viper Venom 28.6 25.2 - 42.2 secs 11/20/2022 14:49 EDT [facility] Silica Clotting Time 41.5 30.2 - 48.4 secs 11/20/2022 14:49 EDT [facility] Blood VENOUS BLOOD / Unknown 11/17/2022 13:00 EDT 11/17/2022 21:35 EDT Provider Outr Resulting Lab HEMATOLOGY & PF4 ORDERABLES Performing Organization Address City/[facility] Co de Phone Number [facility] [address] [place] [address] * LYME AB (11/17/2022 13:00 EDT) Lyme Ab Negative Negative 11/20/2022 9:43 EDT [facility] Blood VENOUS BLOOD / Unknown 11/17/2022 13:00 EDT 11/17/2022 21:41 EDT Provider Outr Resulting Lab IMMUNOLOGY A ND SEROLOGY ORDERABLES Performing Organization Address [facility]/ZIP Co de Phone Number [facility] [address] [place] [address] * RHEUMATOID FACTOR (11/17/2022 13:00 EDT) Rheumatoid Factor <8.6 <12.0 IU/mL 11/17/2022 22:07 EDT [facility] Blood VENOUS BLOOD / Unknown 11/17/2022 13:00 EDT 11/17/2022 21:41 EDT Provider Outr Resulting Lab CHEMISTRY & BLOOD GAS ORDERABLES Performing Organization Address [facility] de Phone Number [facility] [address] [place] [address] * ANTI NUCLEAR AB (BEBE), IFA (11/17/2022 13:00 EDT) Pathologist [facility] BEBE Interpretation Negative Negative 2022 16:06 EDT [facility] Comment:No titer performed, BEBE Screen is negative. Blood VENOUS BLOOD / Unknown 11/17/2022 13:00 EDT 11/17/2022 21:41 EDT Narrative [facility] - 11/20/2022 16:06 EDT Results were obtained with the INOVA NOVA Lite HEp-2 BEBE Kit by indirect immunofluorescence. Provider Outr Resulting Lab IMMUNOLOGY A ND SEROLOGY ORDERABLES Performing Organization Address [facility] Co de Phone Number [facility] [address] [place] [phone] documented in this encounter Visit Diagnoses Not on filedocumented in this encounter Care Teams Conveyor Loader Relationship Specialty Start Date End Date Unknown, Provider, PCP - General 11/01/22 documented as of this encounter
--- OUTSIDE RECORDS SUMMARY | 2024-07-04 02:58 | XMS_ITS | Encounter Summary ---
Author Organization [facility] [place] [address] Care Team Providers Care Freelance Data Entry Name Role Phone Dea Kc APRN Primary Care Provider [phone] Reason for Visit * Reason Comments Medication Refill Encounter Details Date Type Department Care Team (Late st Contact Info) Description 05/05/2024 Refill Obstetrics [place] [address] Roma Lara MD [facility] [address] OBSTETRICS [place] [address] Hot flashes Social History Tobacco Use Types Packs/Day Years Used Date Smoking Tobacco: Former Cigarettes Smokeless Tobacco: Never Alcohol Use Standard Drinks/Week Comments Not Currently 0 (1 standard drink = 0.6 oz pur e alcohol) [facility] Inpatient Questions Answer Date Recorded Does [...] EST Office Visit Obstetrics [place] [address] Roma Lara MD [facility] OBSTETRICS [place] [address] 10/27/2024 11:00 AM EST TH Visit (TeleHealth) [place] [address] Kim Gonzalez MD [facility] [place] [address] documented as of this encounter Visit Diagnoses Diagnosis Hot flashes Symptomatic menopausal or female climacteric states documented in this encounter Care Teams Freelance Data Entry Relationship Specialty Start Date End Date Dea Kc, [place] [place] [address] [place] [address] PCP - General Family Medicine 04/12/23 documented as of this encounter
--- OUTSIDE RECORDS SUMMARY | 2024-07-04 02:58 | XMS_ITS | Encounter Summary ---
Author Organization [facility] [place] [address] Care Team Providers Care Machine Assistant Name Role Phone Dea Kc APRN Primary Care Provider [phone] Reason for Visit * Reason Comments Medication Refill Encounter Details Date Type Department Care Team (Late st Contact Info) Description 06/05/2024 Refill [place] [phone] Kim Gonzalez MD [facility] [place] [address] Irritable bowel syndrome with constipation Social History Tobacco Use Types Packs/Day Years Used Date Smoking Tobacco: Former Cigarettes Smokeless Tobacco: Never Alcohol Use Standard Drinks/Week Comments Not Currently 0 (1 standard drink = 0.6 oz pur e alcohol) [facility] Inpatient Questions Answer Date Recorded Does [...] EST Office Visit Obstetrics [place] [address] Roma Lara MD [facility] OBSTETRICS [place] [address] 10/27/2024 11:00 AM EST TH Visit (TeleHealth) [place] [address] Kim Gonzalez MD [facility] [place] [address] documented as of this encounter Visit Diagnoses Diagnosis Irritable bowel syndrome with constipation Irritable bowel syndrome documented in this encounter Care Teams Machine Assistant Relationship Specialty Start Date End Date Dea Kc, RESISTANCE BRAZER [place] [address] [place] [address] PCP - General Family Medicine 04/12/23 documented as of this encounter
--- OUTSIDE RECORDS SUMMARY | 2024-07-04 02:58 | XMS_ITS | Encounter Summary ---
Author Organization [facility], Later [facility] Address [facility] [place] [address] Care Team Providers Care Nerve Specialist Name Role Phone Dea Kc APRN Primary Care Provider [phone] Reason for Visit * Reason Comments Follow-up Encounter Details Date Type Department Care Team (Late st Contact Info) Description 01/04/2024 11:00 AM EDT Office Visit Obstetrics [place] [address] Roma aLra MD [facility] [address] OBSTETRICS [place] [address] Hot flashes; Vaginismus; Pelvic floor dysfunction Social History Tobacco Use Types Packs/Day Years [...] EDT Inhaled Oxygen Concentration - - Weight - - Height - - Body Mass Index - - documented in this encounter Patient Instructions * Patient Instructions* Roma Lara MD - 01/04/2024 11:00 AM EDT Trigger point injection documented in this encounter Progress Notes * Polina Guzman LNA - 01/04/2024 11:00 AM EDT This patient was seen in the OBGYN clinic today. I was present as buck presser for the sensitive partsof her examination. PERICO Hung * Roma Lara MD - 01/04/2024 11:00 AM EDT CERTIFIED SURGICAL TECH/FIRST ASSISTANT Follow Up Visit Reason for Visit: Yumi is a 53 y.o. post menopausal female who presents for follow up of hotflashes, HRT and vaginal cuff exam. History of Present Illness: Switched insurance, is unsure if I am in network or if trigger points are covered so does not want injections today Stopped taking hormones 1.5 weeks ago, hotflashes weren't changing She was breaking out on her face, was hungry, was exhausted Gabapentin and Paxil made her tired Doing well postoperatively Bowel function is normal No pain No bleeding or discharge HRT monitoring: HRT start: 11/2023 Current tx: Divigel (stopped due to not working for hotflashes and causing breakouts and difficultysleeping) Methods tried: Veozah (no improvement in hotflashes) Follow up: q 3 months Current Outpatient Medications Medication Sig Dispense Refill estradioL (Estrace) 1 mg tablet Take 1 tablet by mouth daily. 30 tablet 3 polyethylene glycoL (Miralax) 17 gram/dose Powder DISSOLVE 17 GRAMS (LINE IN CAP) IN LIQUID AND DRINK TWO TIMES A DAY 714 g 3 hyoscyamine SL (Levsin SL) 0.[address] ONE TABLET UNDER THE TONGUE EVERY 4 HOURS, MAXIMUM DAILY DOSE = 6 TABLET 30 tablet 3 ospemifene (Osphena) 60 mg tablet Take 1 tablet by mouth daily. plecanatide (Trulance) 3 mg tablet Take 1 tablet by mouth daily. 90 tablet 3 prucalopride (Motegrity) 2 mg tablet Take 1 tablet by mouth daily. 90 tablet 1 turmeric root extract 500 mg capsule daily. tretinoin microspheres (RETIN-A MICRO) 0.1 % Gel daily. cholecalciferol, Vitamin D3, 25 mcg (1,000 unit) Capsule daily. magnesium oxide 400 mg magnesium Capsule daily. Calcium and zinc Retin-A 0.01 % Gel APPLY TO FACE ONCE DAILY. mecobalamin, vitamin B12, 1,000 mcg Tablet, Rapid Dissolve daily. Acetylcysteine (NAC) 600 mg capsule Take by mouth. 2 pills bid omega-3 acid ethyl esters (Lovaza) 1 gram capsule Take 2 g by mouth 2 times daily. ascorbic acid, vitamin C, (Vitamin C) 100 mg tablet Take 100 mg by mouth daily. folic acid (Vitamin B9) 1 mg tablet Take 1 mg by mouth daily. UNABLE TO FIND Natures bounty (Hair, skin, and nails) mirabegron (Myrbetriq) 50 mg Tablet Sustained Release 24 hr Take 50 mg by mouth daily. rizatriptan (MAXALT-BELLMAN DRIVER) 10 mg Tablet, Rapid Dissolve Take 10 mg by mouth as needed. pantoprazole EC (Protonix) 40 mg Tablet, Delayed Release (E.C.) Take 40 mg by mouth daily. No current facility-administered medications for this visit. Allergies Allergen Reactions Fingolimod Venlafaxine Other (See Comments) Headache Aspirin Ibuprofen Ulcers Amitriptyline Dimethyl Fumarate Fluoxetine Gabapentin exhaustion Glatiramer (Copolymer 1) ROS: Otherwise negative except as specified in HPI. Physical Exam Vitals: 01/04/24 1055 BP: 124/82 BP Location (NBP): Right arm Pulse: (!) 116 Resp: 14 Temp: 37.4 ??C (99.4 ??F) SpO2: 100% General: NAD, comfortable, pleasant Lungs: Unlabored breathing Abdomen: soft, nontender, nondistended Neuro: grossly intact Pelvic: External genitalia/vulva- normal, no lesions Bartholin's- normal, no masses or tenderness Urethral meatus- normal size, no prolapse, no lesions Vagina- pink estrogenized vaginal mucosa, moderate physiologic discharge, no blood in the vault, nolesions, vaginal cuff well healed, some tenderness at the cuff on palpation Bladder- no masses or tenderness Cervix- Surgically absent Uterus- Surgically absent Adnexa- defer Rectal/perineum- defer Assessment/Plan: Yumi is a 53 y.o. post menopausal female who presents for follow up of hotflashes, HRT and vaginal cuff exam. 1. Hot flashes TSH [place] estradioL (Estrace) 1 mg tablet 2. Vaginismus 3. Pelvic floor dysfunction # Hotflashes - Not improved with divigel and noticing bothersome side effects - Will get TSH - Will trial estradiol tablets to see if offers more relief, reviewed increased risk of VTE # Pelvic floor dysfunction - RTC in 3 months for possible trigger point injections Note to patient: The Century Cures Act makes medical notes like this available to patients in the interest of transparency. However, be advised this is a medical document. It is intended as [id number] communication. It is written in medical language and may contain abbreviations or verbiage that are unfamiliar. Total time spent day of service on chart review, disease discussion and therapeutic counseling, as well as, documentation and coordination of care: 20 min Roma Lara MD 01/04/2024 11:23 AM documented in this encounter Plan of Treatment Upcoming Encounters Date Type Department Care Team (Late st Contact Info) Description 07/17/2024 1:00 PM EST Office Visit Obstetrics [place] [address] Roma Lara MD [facility] OBSTETRICS [place] [address] 10/27/2024 11:00 AM EST TH Visit (TeleHealth) [place] [address] Kim Gonzalez MD [facility] [place] [address] Scheduled Orders Name Type Priority Associated Diagnoses Orde r Schedule TSH [place] Lab Routine Hot flashes Expected: 01/04/2024, Expires: 07/05/2024 documented as of this encounter Visit Diagnoses Diagnosis Hot flashes Symptomatic menopausal or female climacteric states Vaginismus Pelvic floor dysfunction Pelvic muscle wasting documented in this encounter Care Teams Nerve Specialist Relationship Specialty Start Date End Date Dea Kc APRN [facility] [place] [address] PCP - General Family Medicine 04/12/23 documented as of this encounter
--- OUTSIDE RECORDS SUMMARY | 2024-07-04 02:58 | XMS_ITS | Encounter Summary ---
[facility] [place] [address] Care Team Providers Care In Home Caregiver Name Role Phone Dea Kc APRN Primary Care Provider [phone] Encounter Details Date Type Department Care Team (Late Contact Info) Description 06/09/2024 Telephone Obstetrics [place] [phone] Roma Lara MD [facility] [address] OBSTETRICS [place] [address] Social History Tobacco Use Types Packs/Day Years [...] EST Office Visit Obstetrics [place] [phone] Roma Lara MD [facility] OBSTETRICS [place] [address] 10/27/2024 11:00 AM EST TH Visit (TeleHealth) [place] [address] Kim Gonzalez MD [facility] [place] [address] documented as of this encounter Visit Diagnoses Not on filedocumented in this encounter Care Teams In Home Caregiver Relationship Specialty Start Date End Date Dea Kc, BUSINESS MACHINE MECHANIC Maria [place] [address] PCP - General Family Medicine 04/12/23 documented as of this encounter
--- OUTSIDE RECORDS SUMMARY | 2024-07-04 02:58 | XMS_ITS | Encounter Summary ---
Author Organization [facility] Address [address] [place] [address] Care Team Providers Care Sugarcane Planter Name Role Phone Unknown, Provider MD Primary Care Provider Unava ilable Encounter Details Date Type Department Care Team (Late st Contact Info) Description 10/02/2019 Lab Requisition [facility] Pathology & Laboratory Medicine - [address] [address] Unknown, Provider, MD Social History Tobacco Use Types Packs/Day Years Used Date Smoking Tobacco: Never Assessed Sex and Gender Information Value Date Recorded Sex Assigned at Not on file Gender Identity Not on file Sexual Orientation Not on file documented as of this encounter Plan of Treatment Not on file documented as of this encounter Procedures Procedure Name Priority Date/Time Associated Diagnosis Comments CHLAMYDIA/N. GONORRHOEAE AMPLIFIED NUCLEIC ACID Routine 10/02/2019 10:00 EST documented in this encounter Results * CHLAMYDIA/N. GONORRHOEAE AMPLIFIED RNA (10/02/2019 10:00 EST) Neisseria gonorrhoeae Result Negative Negative 10/03/2019 13:16 EST [facility] Chlamydia trachomatis Result Negative Negative 10/03/2019 13:16 EST [facility] Urine URINE / Unknown 10/02/2019 1 0:00 EST 10/02/2019 20:38 EST Narrative [facility] - 10/03/2019 13:16 EST A first catch urine specimen is acceptable for detection of Gonorrhea and Chlamydia, but might detect up to 10% fewer infections when compared with vaginal and endocervical swab samples. Provider Unknown MICROBIOLOGY - GENER AL ORDERABLES [facility] [address] [place] [address] documented in this encounter Visit Diagnoses Not on filedocumented in this encounter Care Teams Sugarcane Planter Relationship Specialty Start Date End Date Unknown, Provider, PCP - General 11/01/22 documented as of this encounter
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
--- OUTSIDE RECORDS SUMMARY | 2024-07-04 02:58 | XMS_ITS | Encounter Summary ---
Author Organization [facility] [place] [address] Care Team Providers Care Spectrograph Operator Name Role Phone Dea Kc APRN Primary Care Provider [phone] Encounter Details Date Type Department Care Team (Latest Contact Info) Description 12/31/2023 Travel Social History Tobacco Use Types Packs/Day [...] EST Office Visit Obstetrics [place] [address] Roma Lara MD [facility] [address] OBSTETRICS [place] [address] 10/27/2024 11:00 AM EST TH Visit (TeleHealth) [place] [address] Kim Gonzalez MD [facility] [place] [address] documented as of this encounter Visit Diagnoses Not on filedocumented in this encounter Care Teams Spectrograph Operator Relationship Specialty Start Date End Date Dea Kc, CLERK TYPIST [facility] [place] [address] [address] [place] [address] PCP - General Family Medicine 04/12/23 documented as of this encounter
--- OUTSIDE RECORDS SUMMARY | 2024-07-04 02:58 | XMS_ITS | Clinical Summary ---
Author Organization [facility] Address [address] [place] [address] Care Team Providers Care Appetizer Packer Name Role Phone Unknown, Provider Primary Care Provider Unava ilable Social History Tobacco Use Types Packs/Day Years Used Date Smoking Tobacco: Never Assessed Interpersonal Safety Answer Date Record ed Physically Hurt Never 07/27/2020 Verbally Threaten Not on file 07/27/2020 Sex and Gender Information Value Date Recorded Sex Assigned at Not on file Gender Identity Not on file Sexual Orientation Not on file Plan of Treatment Health Maintenance Due Date Last Done Comments Hepatitis C Screen 1970 Hepatitis B Vaccine (1 of 3 - 19+ 3-dose series) 01/25 COVID-19 Vaccine ( - season) 2023 Care Teams Appetizer Packer Relationship Specialty Start Date End Date Unknown, Provider, PCP - General 11/01/22
--- OUTSIDE RECORDS SUMMARY | 2024-07-04 02:58 | XMS_ITS | Encounter Summary ---
Author Organization [facility] [place] [address] Care Team Providers Care Automat Car Attendant Name Role Phone Dea Kc APRN Primary Care Provider Encounter Details Date Type Department Care Team (Latest Contact Info) Description 01/04/2024 Travel Social History Tobacco Use Types Packs/Day [...] EST Office Visit Obstetrics [place] [address] Roma Lara MD [facility] DR OBSTETRICS [place] [address] 10/27/2024 11:00 AM EST TH Visit (TeleHealth) [place] [address] Kim Gonzalez MD [facility] [place] [address] documented as of this encounter Visit Diagnoses Not on filedocumented in this encounter Care Teams Automat Car Attendant Relationship Specialty Start Date End Date Dea Kc, BIOPHYSICS TEACHER [facility] [place] [address] PCP - General Family Medicine 04/12/23 documented as of this encounter
--- OUTSIDE RECORDS SUMMARY | 2024-07-04 02:58 | XMS_ITS | Encounter Summary ---
Author Organization [facility] Address [address] [place] [address] Care Team Providers Care House Officer Name Role Phone Unknown, Provider Primary Care Provider Clare handley Encounter Details Date Type Department Care Team (Late st Contact Info) Description 06/22/2021 Lab Requisition [facility] - [facility] [address] [place] [address] Nicole Lyle MD [address] [place] [address] [address] [place], [place] [id number] Encounter for other general examination Social History Tobacco Use Types Packs/Day Years [...] Procedure Name Priority Date/Time Associated Diagnosis Comments PAP TEST Today 06/21/2021 10:30 EDT Encounter for other general examination HPV DNA DETECTION WITH GENOTYPING, PCR Today 06/21/2021 10:30 EDT Encounter for other general examination documented in this encounter Results * HUMAN PAPILLOMAVIRUS (HPV) DETECTION-HIGH RISK TYPES (06/21/2021 10:30 EDT) HPV other High Risk types, PCR Negative Negative 07/01/2021 15:59 EDT [facility] Comment:No E6 or E7 mRNA is detected from HPV types 16,18,31,33,35,39,45,51,52,56,58,59,66, and 68 by gear repairer mediated amplification. Papanicolaou smear specimen (specimen) CERVIX UTERI STRUCTURE / Unknown 06/21/2021 10:30 EDT 06/29/2021 13:06 EDT Nicole Lyle MD MICROBIOLOGY - GENER AL ORDERABLES [facility] [address] [place] [address] * PAP TEST (06/21/2021 10:30 EDT) Specimens A. Cervix and/or Endocervix , ThinPrep Imaging System with Manual Evaluation 07/01/2021 15:59 EDT [facility] Specimen Adequacy Satisfactory for Evaluation - transformation zone component present 07/01/2021 15:59 EDT [facility] General Categorization Negative for intraepithelial lesion or malignancy 07/01/2021 15:59 EDT [facility] Attestation . 07/01/2021 15:59 EDT [facility] at 1559 Clinical History See below 07/01/20 15:59 EDT [facility] HPV The result for the Human Papillomavirus (HPV) Detection-High Risk Types is Negative. No E6 or E7 mRNA is detected from HPV types 16,18,31,33,35,39 ,45,51,52,56,58,5 9,66, and 68 by gear repairer mediated amplification.Meggan ting was performed on specimen [id number] and was resulted on 07/01/2021 1555 EDT by STACEY, LAB INSTRUMENT RESULTS IN 07/01/2021 15:59 EDT [facility] Performing Lab [facility] 07/01/2021 15:59 EDT [facility] Scanned Images 07/01/2021 15:59 EDT [facility] Papanicolaou smear specimen (specimen) CERVIX UTERI STRUCTURE / Unknown 06/21/2021 10:30 EDT 06/22/2021 15:23 EDT Nicole Lyle MD PATHOLOGY ORDERABLES [facility] [address] [place] [address] documented in this encounter Visit Diagnoses Diagnosis Encounter for other general examination documented in this encounter Care Teams House Officer Relationship Specialty Start Date End Date Unknown, Provider, PCP - General 11/01/22 documented as of this encounter
--- OUTSIDE RECORDS SUMMARY | 2024-07-04 02:58 | XMS_ITS | Referral Summary ---
Author Organization [facility] Address [address] [place] [address] Care Team Providers Care Solar Installation Manager Name Role Phone Unknown, Provider Primary Care [...] Orientation Not on file Plan of Treatment Not on file Care Teams Solar Installation Manager Relationship Specialty Start Date End Date Unknown, Provider, PCP - General 11/01/22
--- OUTSIDE RECORDS SUMMARY | 2024-07-04 02:58 | XMS_ITS | Encounter Summary ---
Author Organization [facility] [place] [address] Care Team Providers Care Oracle Applications Analyst Name Role Phone Dea Kc APRN Primary Care Provider [phone] Encounter Details Date Type Department Care Team (Late st Contact Info) Description 04/08/2024 Orders Only Obstetrics [place] [phone] Nicole Moses MD [facility] [place] [address] Social History Tobacco Use Types Packs/Day Years [...] EST Office Visit Obstetrics [place] [phone] Roma Lara MD [facility] [place] [address] 10/27/2024 11:00 AM EST TH Visit (TeleHealth) [place] [address] Kim Gonzalez MD [facility] [place] [address] documented as of this encounter Visit Diagnoses Not on filedocumented in this encounter Care Teams Oracle Applications Analyst Relationship Specialty Start Date End Date Dea Kc, ERICK [address] [place] [place] [address] PCP - General Family Medicine 04/12/23 documented as of this encounter
--- OUTSIDE RECORDS SUMMARY | 2024-07-04 02:59 | XMS_ITS | Encounter Summary ---
Author Organization [facility] [place] [address] Care Team Providers Care Manager Monitoring Name Role Phone Dea Kc APRN Primary Care Provider [phone] Encounter Details Date Type Department Care Team (Latest Contact Info) Description 10/29/2023 8:30 AM EST TH Visit (TeleHealth) [place] [phone] Kim Gonzalez MD [facility] [place] [address] Irritable bowel syndrome with constipation; Functional dyspepsia; Gastroparesis Social History Tobacco Use Types Packs/Day Years [...] * Patient Instructions* Kim Gonzalez MD - 10/29/2023 8:30 AM EST Recommendations Continue Trulance 3mg in the morning and Motegrity 2mg in the evening for now, let's see what new insurance will cover Continue Miralax twice a day Back off on Motegrity to every other evening to see how this goes as may be contributing to some abdominal pain Continue hyoscyamine as needed for pain Continue to work with providers on ways to address your back and pelvic floor Small, frequent meals as best as possible If above medications not covered, may need to fall back on stimulant laxatives (dulcolax) or try a switch to IBSRela Follow-up 6 months documented in this encounter Progress Notes * Kim Gonzalez MD - 10/29/2023 8:30 AM EST [facility] Section of Gastroenterology and Hepatology Follow-up Telemedicine Visit PCP: Dea Kc APRN HPI 53 y.o. female following up for IBS-C and [...] 6. GERD controlled on PPI Interval follow-up Doing well recovering from surgery (vaginal cuff rupture), had trouble moving bowels post-op but was able to go once had one meds On abx for a total of 14 days, along with probiotic Moving bowels, but constant nausea, doesn't want to eat, crappy all around Before the cuff rupture, was getting more gassy again, filling up with air, bowel movements were not as complete Trulance, Miralax in AM - > , moves bowels 2-3 times in the AM, almost liquid Miralax in PM, Motegrity at night, + hyoscyamine Plan pre-surgery was to wean off Miralax Going to lose state health insurance next month Does have a 3 mo supply of Trulance/Motegrity On ibuprofen and tylenol scheduled No needing ibuprofen Lower back, pelvic floor - did PT for a very long time, minor self limited relief Can't get back to loosen up Review of systems: 14-point review of systems [...] constipated based on imaging. Started seeing a institutional nutrition consultant then. Does not recallever having hard stools [...] but much better than it was. PSHx Remote appendectomy 16 years ago SHx Smoked [...] K31.84 Vaginal discharge N89.8 Current Outpatient Medications: acetaminophen (Tylenol) 325 mg tablet, Take 3 tablets by mouth every 6 hours., Disp: 30 tablet, Rfl: 1 oxyCODONE (Roxicodone) 5 mg tablet, Take 1 tablet by mouth every 4 hours as needed for Pain (for pain scale 6-8)., Disp: 10 tablet, Rfl: 0 amoxicillin-clavulanate (Augmentin) 875-125 mg tablet, Take 1 tablet by mouth 2 times daily for 14 days., Disp: 28 tablet, Rfl: 0 plecanatide (Trulance) 3 mg tablet, Take 1 tablet by mouth daily., Disp: 90 tablet, Rfl: 3 fezolinetant 45 mg Tablet, Take 45 mg by mouth daily., Disp: 30 tablet, Rfl: 3 polyethylene glycoL (Miralax) 17 gram/dose Powder, DISSOLVE 17 GRAMS (LINE IN CAP) IN LIQUID AND DRINK BY MOUTH TWICE DAILY, Disp: 850 g, Rfl: 3 hyoscyamine SL (Levsin SL) 0.125 mg sublingual tablet, Take 1 tablet by mouth every 4 hours as needed for Cramping. Max 6 pills per day., Disp: 30 tablet, Rfl: 3 prucalopride (Motegrity) 2 mg [...] by mouth daily., Disp: , Rfl: rizatriptan (MAXALT-OUTCOME ANALYST) 10 mg Tablet, Rapid Dissolve, Take 10 [...] Stereotactic Biopsy Right 08/16/2023 Suzanna Izquierdo MD [facility] RAD MAMMOGRAPHY PRO CYSTOURETHROSCOPY N/A 04/25/2023 CYSTO, CYSTOURETHROSCOPY, DIAGNOSTIC (WRVU 1.53) performed by Roma Lara MD at [facility] MAIN OR PRO CYSTOURETHROSCOPY N/A 04/25/2023 CYSTO, CYSTOURETHROSCOPY, DIAGNOSTIC (WRVU 1.53) performed by Nicole Moses MD at [facility] MAIN OR PRO EXPLORATION OF ABDOMEN N/A 10/24/2023 @EXPLORATORY LAPAROTOMY, WITH/WITHOUT BIOPSY(S) (WRVU 12.54) performed by Yue Lassiter MD at [facility] MAIN OR PRO LAP, DIAGNOSTIC ABDOMEN N/A 10/24/2023 LAPAROSCOPY, DIAGNOSTIC, ABDOMEN (WRVU 5.14) performed by Sharifa Correa MD at [facility] MAIN OR PRO LAPAROSCOPY W TOT HYSTERECTUTERUS <=250 GRAM W TUBE/OVARY N/A 04/25/2023 LAPAROSCOPY, TOTAL HYST, UTERUS<250GMS, REM TUBE &/OR OVARY (WRVU 15) performed by Roma Lara MD at [facility] MAIN OR PRO REPAIR OF VAGINA N/A 10/24/2023 COLPORRHAPHY, NON OBSTETRICAL SUTURE OF VAGINAL INJURY (WRVU 4.42) performed by Misha Serrano MDat [facility] MAIN OR PRO SLING OPER STRES INCONTINENCE N/A 04/25/2023 URETHRAL SUSPENSION, SLING\FASCIA OR SYNTHETIC (WRVU 12.13) [facility] Social History Socioeconomic History Marital status: Spouse name: Not on file Number of children: Not on file Years of education: Not on file Highest education level: Not on file Occupational History Not on file Tobacco Use Smoking status: Former Types: Cigarettes Smokeless tobacco: Never Vaping Use Vaping Use: Never used Substance and Sexual Activity Alcohol use: Not Currently Drug use: Not Currently Sexual activity: Yes control/protection: OCP Other Topics Concern Not on file Social History Narrative Not on file Social Determinants of Health Financial Resource Strain: Not on file Food Insecurity: Not on file Transportation Needs: Not on file Physical Activity: Not on file Intimate Partner Violence: Patient Unable To Answer (10/09/2023) IPV Inpatient Questions Prevent Contact with Others: [...] LABS AND IMAGING: As noted above Impression: 53 y.o. female with MS not on medications, [...] bowels (though the latter is also inconsistent). Recommendations Continue Trulance 3mg in the morning and Motegrity 2mg in the evening for now, let's see what new insurance will cover Continue Miralax twice a day Back off on Motegrity to every other evening to see how this goes as may be contributing to some abdominal pain Continue hyoscyamine as needed for pain Continue to work with providers on ways to address your back and pelvic floor Small, frequent meals as best as possible If above medications not covered, may need to fall back on stimulant laxatives (dulcolax) or try a switch to IBSRela Other options diagnostic/therapeutic for us to [...] which is limited, recommend re-considering evaluation at [facility] Follow-up in: 6 months The patient was located in [place] at the time of their visit. Technology issues. TIME SPENT WITH PATIENT Time spent reviewing records prior to this encounter on the day of the encounter: 5 minutes Time spent on the phone with patient on the day of the encounter: 25 minutes Total time day of encounter: 30 minutes The risks, benefits and alternatives were discussed with the patient who understands and agrees with above. Kim Gonzalez MD 10/29/23 Kim Gonzalez MD [employer] Engineerrear load truck driver Section of Gastroenterology and Hepatology [facility] [email or web address] ([email or web address]) documented in this encounter Plan of Treatment Upcoming Encounters Date Type Department Care Team (Late st Contact Info) Description 07/17/2024 1:00 PM EST Office Visit Obstetrics [place] [address] Roma Lara MD [facility] OBSTETRICS [place] [address] 10/27/2024 11:00 AM EST TH Visit (TeleHealth) [place] [address] Kim Gonzalez MD [facility] [place] [address] documented as of this encounter Visit Diagnoses Diagnosis Irritable bowel syndrome with constipation Irritable bowel syndrome Functional dyspepsia Dyspepsia and other specified disorders of function of stomach Gastroparesis documented in this encounter Care Teams Manager Monitoring Relationship Specialty Start Date End Date Dea Kc APRN [facility] [place] [address] PCP - General Family Medicine 04/12/23 documented as of this encounter
--- OUTSIDE RECORDS SUMMARY | 2024-07-04 02:59 | XMS_ITS | Encounter Summary ---
Author Organization [facility] [place] [address] Care Team Providers Care Dog Bather Name Role Phone Dea Kc APRN Primary Care Provider [phone] Encounter Details Date Type Department Care Team (Late st Contact Info) Description 10/19/2023 [place] [address] Willam [place] CMA Social History Tobacco Use Types Packs/Day Years [...] documented as of this encounter Miscellaneous Notes * Telephone Encounter - Willam [place] CMA - 10/19/2023 11:50 AM EST Access to Chart Received PA request for Veozah 45mg PA Not Submitted Reason: Not a dept we Service documented in this encounter Plan of Treatment Upcoming Encounters Date Type Department Care Team (Late st Contact Info) Description 07/17/2024 1:00 PM EST Office Visit Obstetrics [place] [address] Roma Lara MD [facility] OBSTETRICS [place] [address] 10/27/2024 11:00 AM EST TH Visit (TeleHealth) [place] [phone] Kim Gonzalez MD [facility] [place] [address] documented as of this encounter Visit Diagnoses Not on filedocumented in this encounter Care Teams Dog Bather Relationship Specialty Start Date End Date Dea Kc APRN Maria [address] [place] [address] PCP - General Family Medicine 04/12/23 documented as of this encounter
--- OUTSIDE RECORDS SUMMARY | 2024-07-04 02:59 | XMS_ITS | Encounter Summary ---
Author Organization [facility] Address [facility] [place] [address] Care Team Providers Care Housekeeping And Laundry Team Leader Name Role Phone Dea Kc APRN Primary Care Provider [phone] Encounter Details Date Type Department Care Team (Latest Contact Info) Description 08/16/2023 2:17 PM EST - 08/16/2023 11:59 PM EST Hospital [place] [address] Yumiko Wang MD [facility] [place] [address] Abnormal finding on breast imaging Discharge Disposition: Home Social History Tobacco Use Types Packs/Day Years Used Date Smoking Tobacco: Former Cigarettes Smokeless Tobacco: Never Alcohol Use Standard Drinks/Week Comments Not Currently 0 (1 standard drink = 0.6 oz pur e alcohol) [facility] Inpatient Questions Answer Date Recorded Does [...] on file documented as of this encounter Medications at Time of Discharge Medication Sig Dispensed Refills Start Date End Date turmeric root extract 500 mg capsule daily. 04/19/2020 cholecalciferol, Vitamin D3, 25 mcg (1,000 unit) Capsule daily. 04/19/2020 magnesium oxide 400 mg magnesium Capsule daily. Calcium and zinc 04/19/2020 Retin-A 0.01 % Gel APPLY TO FACE ONCE DAILY. 04/03/2023 mecobalamin, vitamin B12, 1,000 mcg Tablet, Rapid Dissolve daily. 04/19/2020 Acetylcysteine (NAC) 600 mg capsule Take by [...] Take 50 mg by mouth daily. 05/31/2017 rizatriptan ([employer]) 10 mg Tablet, Rapid Dissolve Take 10 mg by mouth as needed. 04/18/2021 pantoprazole EC (Protonix) 40 mg Tablet, Delayed Release (E.C.) Take 40 mg by mouth daily. hyoscyamine SL (Levsin SL) 0.125 mg sublingual tabletIndications:Irrit able bowel syndrome with constipation Take 1 tablet by mouth every 4 hours as needed for Cramping. Max 6 pills per day. 30 tablet 3 08/01/2023 12/03/2023 prucalopride (Motegrity) 2 mg tabletIndications:Irrit able bowel syndrome with constipation Take 1 tablet by mouth daily. 90 tablet 1 08/01/2023 04/28/2024 tretinoin microspheres (RETIN-A MICRO) 0.1 % Gel daily. 03/29/2022 04/28/2024 baclofen (Lioresal) 10 mg tabletIndications:Vagin al pain,Vaginismus Place one tab VAGINALLY up to twice per day as needed for muscle spasm 90 tablet 3 07/19/2023 10/26/2023 estradioL (ESTRACE) 0.01 % (0.1 mg/gram) Cream 1g into vagina nightly for 2 weeks 42.5 g 12 05/31/2023 10/26/2023 oxyCODONE (Roxicodone) 5 mg tablet Take 1 tablet by mouth every 4 hours as needed for Pain. 8 tablet 04/25/2023 10/26/2023 ibuprofen (Advil) 600 mg tablet Take 1 tablet by mouth every 6 hours as needed for Pain. 30 tablet 12 04/25/2023 10/26/2023 acetaminophen (Tylenol) 325 mg tablet Take 2 tablets by mouth every 4 hours as needed for Pain. 30 tablet 1 04/25/2023 10/26/2023 polyethylene glycoL (Miralax) 17 gram/dose PowderIndications:Irrit able bowel syndrome with constipation DISSOLVE 17 GRAMS (LINE IN CAP) IN LIQUID AND DRINK BY MOUTH TWICE DAILY 238 g 1 11/15/2022 08/30/2023 plecanatide (Trulance) 3 mg TabletIndications:Irrit able bowel syndrome with constipation Take 1 tablet by mouth daily. 90 tablet 3 11/13/2022 10/23/2023 documented as of this encounter Progress Notes * Yumi Jefferson MD - 08/15/2023 6:12 PM EST Pre-procedure note for needle breast biopsies performed in radiology. Procedure date: Tomorrow Procedure type: right breast stereotactic biopsy Allergies: Fingolimod, Venlafaxine, Aspirin, Ibuprofen, Amitriptyline, Dimethyl fumarate, Fluoxetine, Gabapentin, and Glatiramer (copolymer 1) Medications: Current Outpatient Medications: hyoscyamine SL (Levsin SL) 0.125 mg sublingual [...] 0.1 % Gel, daily., Disp: , Rfl: baclofen (Lioresal) 10 mg tablet, Place one tab VAGINALLY up to twice per day as needed for muscle spasm, Disp: 90 tablet, Rfl: 3 estradioL (ESTRACE) 0.01 % (0.1 mg/gram) Cream, 1g into vagina nightly for 2 weeks, Disp: 42.5 g, Rfl: 12 oxyCODONE (Roxicodone) 5 mg tablet, Take 1 tablet by mouth every 4 hours as needed for Pain., Disp:8 tablet, Rfl: 0 ibuprofen (Advil) 600 mg tablet, Take 1 tablet by mouth every 6 hours as needed for Pain., Disp: 30tablet, Rfl: 12 acetaminophen (Tylenol) 325 mg tablet, Take 2 tablets by mouth every 4 hours as needed for Pain., Disp: 30 tablet, Rfl: 1 cholecalciferol, Vitamin D3, 25 mcg (1,000 unit) [...] (Hair, skin, and nails), Disp: , Rfl: polyethylene glycoL (Miralax) 17 gram/dose Powder, DISSOLVE 17 GRAMS (LINE IN CAP) IN LIQUID AND DRINK BY MOUTH TWICE DAILY, Disp: 238 g, Rfl: 1 plecanatide (Trulance) 3 mg Tablet, Take 1 tablet by mouth daily., Disp: 90 tablet, Rfl: 3 mirabegron (Myrbetriq) 50 mg Tablet Sustained Release 24 hr, Take 50 mg by mouth daily., Disp: , Rfl: rizatriptan ([employer]) 10 mg Tablet, Rapid Dissolve, Take 10 mg by mouth as needed., Disp: , Rfl: pantoprazole EC (Protonix) 40 mg Tablet, Delayed Release (E.C.), Take 40 mg by mouth daily., Disp: , Rfl: Anticoagulation status: none stopped on: N/A Imaging reviewed and procedural plan approved by Dr. Timbo Jefferson MD Diagnostic Radiology, PGY-4 Pager [phone] documented in this encounter Plan of Treatment Upcoming Encounters Date Type Department Care Team (Late st Contact Info) Description 07/17/2024 1:00 PM EST Office Visit Obstetrics [place] [phone] Roma Lara MD [facility] OBSTETRICS [place] [address] 10/27/2024 11:00 AM EST TH Visit (TeleHealth) [place] [phone] Kim Gonzalez MD [facility] [place] [address] documented as of this encounter Procedures Procedure Name Priority Date/Time Associated Diagnosis Comments MAMMO STEREOTACTIC BIOPSY RIGHT Routine 08/16/2023 3:50 PM EST Abnormal finding on breast imaging SPECIMEN TO PATHOLOGY Routine 08/16/2023 3:25 PM EST SURGICAL PATHOLOGY REPORT Routine 08/16/2023 3:16 PM EST documented in this encounter Results * Mammo Stereotactic Biopsy Right (08/16/2023 3:50 PM EST) Anatomical Region Laterality Modality Breast N/A Mammography Impressions 08/18/2023 11:33 AM EST Concordant result RECOMMENDATION: ?? Return to annual screening as discussed with the patient REVIEW PATH CONFERENCE?: No Thank you for letting us participate in the care of this patient. ??If you are a health care provider and have any questions regarding this report, please contact the number below. ??For patients who have questions please contact the health tire care manager that requested your imaging first. ? Electronically signed by: Suzanna Izquierdo MD, [facility] ([phone]), at 08/18/2023 11:33 AM Narrative 08/18/2023 11:33 AM EST STEREOTACTIC GUIDED VACUUM ASSISTED BIOPSY OF THE RIGHT BREAST CLINICAL HISTORY: Calcifications ?? 0.5 cm Microcalcifications RIGHT 10 Radian 7 cm from the nipple PROCEDURAL DETAILS: Informed consent was obtained and a time out procedure was performed per protocol. The patient gave permission to proceed. Using sterile technique and local anesthetic (less than 20cc's of 1% lidocaine) a biopsy was performed using tomographic guidance. Multiple core biopsy specimens were obtained using a 9g vacuum assist device. 6 core biopsy specimens were obtained using a J-Kan Eviva 9g device. A petite needle was used Biopsy specimens were radiographed. ??The abnormality was present on the specimen digital radiograph. A [employer] Eviva cylinder marker clip was placed. Cranio-caudal and lateral digital mammography was performed to determine biopsy marker placement the marker was not present, likely extruded due to its superficial nature. Therefore a [place] clip was placed manually just under the skin surface at the biopsy site. Repeat imaging was not performed due to patient's hematoma COMPLICATIONS: 2.5 cm hematoma. PROCEDURAL ATTESTATION: Resident: None PATHOLOGIC DIAGNOSIS: ?? Calcifications in lactational change Yumiko Wang MD IMG MAMMO ORDERAB LES * Specimen to Pathology (08/16/2023 3:25 PM EST) AP Specimen 08/16/2023 3:25 PM EST 08/16/2023 3:25 PM EST Narrative [facility] - 08/16/2023 3:25 PM EST Specimen requisition ordered. ??Separate Pathology report to follow Suzanna Izquierdo MD PATHOLOGY/CYTOLOGY O RDERABLES [facility] [place] [address] * Surgical Pathology Report (08/16/2023 3:16 PM EST) Final Diagnosis [id number] ? Location: 3L The signing pathologist has (i) examined the relevant preparation(s) for the specimen(s) and (ii) rendered or confirmed the diagnosis(es). . ?Surgical Pathology DIAGNOSIS Right breast, core needle biopsy: - Benign breast tissue with lactational changes involving scattered ??duct and lobular units - Microcalcifications associated with lactational changes Electronically signed by: ?Kendy RANDALL, Becka Decker Verified: ??08/17/2023 11:10 ??Pathologist Performed at: ??-[facility] Dept. of Pathology, [place] [address] Pewter Finisher: Jennifer Medina MD, FCAP, ??CLIA Certificate: [id number] SPECIMEN(S) SUBMITTED A - RIGHT BREAST STEREO BIOPSY, biopsy (Multiple) CLINICAL INFORMATION Calcifications SPECIMEN PROCESSING A - Received in two containers: 1 - Labeled/Fixative: Calcifications, formalin Quantity/Size: Multiple, ranging from 0.4 x 0.2 cm to 1.8 x 0.2 cm. Tissue Description: Yellow-red fibrofatty needle core biopsies. Submitted in: A1-A2 2 - Labeled/Fixative: No calcifications, formalin. Quantity/Size: Three, ranging from 1.3 x 0.2 cm to 0.4 x 0.3 cm. Tissue Description: Yellow fibrofatty needle core biopsies. Submitted in: A3 Sections/Processing: Entirely submitted in 3 cassettes labeled A1-A3. Ischemic time: 7 minutes Total fixation time in formalin: 8 hours 37 minutes The ASCO/CAP guideline related to formalin fixation time has been met (6-72 hours). The ASCO/CAP guideline related to cold ischemic time has been met (<1 hour). ??maria luisay 08/17/2023 11:10 AM EST [facility] BREAST STRUCTURE / Unknown 08/16/2023 3:16 PM EST 08/16/2023 3:16 PM EST Suzanna Izquierdo MD PATHOLOGY/CYTOLOGY O RDERALEWIS [facility] [place] [address] [facility] [place] [address] documented in this encounter Visit Diagnoses Diagnosis Abnormal finding on breast imaging Other (abnormal) findings on radiological examination of breast documented in this encounter Administered Medications Inactive Administered Medications - up to 3 most recent administrations Medication Order MAR Action Action Date Dose Rate Site lidocaine (Xylocaine) 1% (10 mg/mL) injection 0-200 mg 0-200 mg (0-20 mL), Subcutaneous, ONCE, 1 dose, On Hayley 08/16/23 at 1545, Radiology Protocol Medication, Routine Given 08/16/2023 3:45 PM EST 20 mg documented in this encounter Care Teams Housekeeping And Laundry Team Leader Relationship Specialty Start Date End Date Dea Kc, ERICK [place] [address] PCP - General Family Medicine 04/12/23 documented as of this encounter
--- OUTSIDE RECORDS SUMMARY | 2024-07-04 02:59 | XMS_ITS | Encounter Summary ---
Author Organization [facility] [place] [address] Care Team Providers Care Access Spec Name Role Phone Dea Kc APRN Primary Care Provider [phone] Reason for Visit * Reason Onset Date Comments Medication Refill 08/30/2023 Encounter Details Date Type Department Care Team (Late st Contact Info) Description 08/30/2023 Refill [place] [address] Kim Gonzalze MD [facility] [place] [address] Irritable bowel syndrome with constipation Social History [...] EST Office Visit Obstetrics [place] [address] Roma Lara MD [facility] [address] OBSTETRICS [place] [address] 10/27/2024 11:00 AM EST TH Visit (TeleHealth) [place] [address] Kim Gonzalez MD [facility] [place] [address] documented as of this encounter Visit Diagnoses Diagnosis Irritable bowel syndrome with constipation Irritable bowel syndrome documented in this encounter Care Teams Access Spec Relationship Specialty Start Date End Date Dea Kc [place] [address] [place] [address] PCP - General Family Medicine 04/12/23 documented as of this encounter
--- OUTSIDE RECORDS SUMMARY | 2024-07-04 02:59 | XMS_ITS | Encounter Summary ---
[place] [address] Care Team Providers Care Certified Massage Therapist Name Role Phone Dea Kc APRN Primary Care Provider [phone] Reason for Visit * Auth/Cert (Routine) Specialty Diagnoses / Procedures Referred By Brien t Referred To Contact Diagnoses Vaginal discharge Procedures EMERGENCY IPI Yue Lassiter MD [facility] OBSTETRICS [place] [address] [facility] Referral ID Status Reason Start Date Expiration Date Visits Re quested Visits Authorized [id number] 1 1 Encounter Details Date Type Department Care Team (Late st Contact Info) Description 10/24/2023 4:07 PM EST Anesthesia [place] [address] Jim Reaves MD [facility] DR [place] [address] Yvonne Middleton MD [facility] [place] [address] Anesthesia Record Procedure Summary Procedure Name Responsible Anesthesiologist Anesthesia Start Time Anesthesia Stop Time @EXPLORATORY LAPAROTOMY, WITH/WITHOUT BIOPSY(S) (WRVU 12.54) (Abdomen) Jim Reaves MD 10/24/23 1607 10/24/23 1852 Events Date Time Event Comment 10/24/2023 1607 AN Verify 1607 Start 1608 An Start Data 1613 An Induction 1615 An Intubation 1619 Anesthesia Ready 1622 ABG Data Arterial Blood Gas result: pH 7.482 pCO2 35.1 pO2 466 %O2 Sat 98.9 FiO2 HCO3 25.7 BE 2.2 Hb 13.4 K 3.55 Glucose 104 Lactate 0.87 1638 An Data Art ART re-zeroed 1639 Procedure Start 1843 Extubation/LMA Out 1846 an stop data 1850 Recovery or ICU Handoff Kelsey ent care was transferred to the destination unit staff after review of the patient's medical history, current anesthetic/surgical status and plan, according to the Provider Handoff Checklist. 185 Stop 2250 Meds Name Total IV Lidocaine 40 mg Propofol 140 mg Rocuronium 50 mg PHENYLephrine 160 mcg Ondansetron 8 mg PHENYLephrine INF 740 mcg propofol INF 300.63 mg HYDROmorphone 1 mg ketamine 10 mg/mL 20 mg dexmedeTOMIDine 20 mcg succinylcholine 50 mg metroNIDAZOLE 500 mg ceFAZolin 2 g sugammadex 200 mg lactated ringers 600 mL sodium chloride 0.9% 700 mL * Agents Name O2 * Blood No blood administrations on file. Lines, Drains, and Airways Type Details Placement Removal Incision midline; lower quadr ant; laparoscopic punctures (specify) 10/24/23 1652 by Incision 04/25/23; 1059; ante rior; abdomen; laparoscopic punctures (specify); trocar sites x 4 04/25/23 1059 by Elvia Cheung RN Incision 04/25/23; 1254; vagina 04/25/23 1254 by Elvia Cheung RN PIV 10/24/23; 1232; fwkh-lrb-rpwmia catheter system; 20 gauge; cephalic vein (lateral side of arm), left; Anatomical Landmarks; 10/26/23; 1110 10/24/23 1232 by Tess Hooker RN 10/26/23 1110 by Marnie Torrez RN PIV 10/24/23; 1339; nuaa-zmd-pacpjr catheter system; 20 gauge; median cubital vein (antecubital fossa), right; Anatomical Landmarks; US Not Used; 10/26/23; 1111 10/24/23 1339 by Glenna Melendez RN 10/26/23 1111 by Marnie Torrez, ALEN ETT Mask Ventilation: No t Attempted (0); ETT Type: Cuffed, Oral; ETT Size: 7 mm; Mac Blade: 3; Notes: Asleep, Pre-O2, RSI, Cricoid Pressure, Stylette; Attempts: 1; Laryngoscopy Grade: 1; ETT Placement Verified By: Auscultation, Visual, Capnometry; Secured at Teeth: 21 cm; Inserted by: Mahendra SANCHEZ; Removal Date: 10/24/23; Removal Time: 184210/24/23 1615 by Colleen Ruiz, GLOVE CUTTER 10/24/23 1843 by Colleen Ruiz, NATY PIV 10/24/23; 1616; nfzu-xyo-uhpujf catheter system; 18 gauge; metacarpal vein (top of hand), left; Anatomical Landmarks; Janice ALFONSO; tolerated well; 10/25/23; 1620 10/24/23 1616 by Colleen Ruiz, GLOVE CUTTER 10/25/23 1620 by Eunice Najera LNA Arterial Line 10/24/23; 1619; radi al artery, right; 20 gauge; Anatomical Landmarks; continuous blood pressure monitoring; Emi MADDOX; Sterile Prep, Sterile Gloves; 10/26/23; 1111 10/24/23 1619 by Colleen Ruiz, GLOVE CUTTER 10/26/23 1111 by Marnie Torrez RN Urethral Catheter 10/24/23; 1651; Genitourinary surgery; indwelling single lumen catheter; 100% silicone; 14; inserted at this facility; 1; 5; 10; none; drainage bag; 10/25/23; 1136 10/24/23 1651 by Imani Johnson RN 10/25/23 1136 by Pam Gambino, RN documented in this encounter Social History Tobacco Use Types Packs/Day Years [...] on file documented as of this encounter OR Notes * Anesthesia Postprocedure Evaluation - Jim Reaves MD - 10/24/2023 7:20 PM EST Department of Anesthesiology Post-procedure Note Patient: Yumi Peraza Procedure Summary Date: 10/24/23 Room / Location: [facility] OR [address] [place] [address] MAIN OR Anesthesia Start: 160 Anesthesia Stop: Procedures: @EXPLORATORY LAPAROTOMY, WITH/WITHOUT BIOPSY(S) (WRVU 12.54) (Abdomen) LAPAROSCOPY, DIAGNOSTIC, ABDOMEN (WRVU 5.14) (Abdomen) COLPORRHAPHY, NON OBSTETRICAL SUTURE OF VAGINAL INJURY (WRVU 4.42) Diagnosis: (bowel) Surgeons: Yue Lassiter MD; Sharifa Correa MD; Misha Serrano MD Responsible Provider: Jim Reaves MD Anesthesia Type: general ASA Status: 2 - Emergent All Anesthesia Providers: Anesthesiologist: Yvonne Middleton MD; Jim Reaves MD GLOVE CUTTER: Colleen Ruiz CRNA Student Nurse Work Order Detailer: Sae Mccray Vitals Value Taken Time BP 118/81 10/24/231914 Temp 36.4 ??C (97.5 ??F) 10/24/23 1849 Pulse 79 10/24/231918 Resp 22 10/24/231918 SpO2 100 % 10/24/231918 Pain Level Vitals shown include unfiled device data. Patient Location: PACU[facility] Level of Consciousness: Awake and Alert Pain Management: Satisfactory Analgesia PONV: None Cardiovascular Status: Hemodynamically Stable Respiratory Status: Stable Respiratory Status Postoperative Fluid Status: Intravascular EUvolemia Possible Anesthetic Complications: NONE apparent at time of evaluation Final Primary Anesthesia Type: General (The anesthetic type performed was the same as planned.) Comments: * Anesthesia Preprocedure Evaluation - Yvonne Middleton MD - 10/24/2023 3:48 PM EST Pre-Anesthesia Evaluation for: Yumi Peraza a 53 y.o. female. Procedure(s): @EXPLORATORY LAPAROTOMY, WITH/WITHOUT BIOPSY(S) (WRVU 12.54) Patient Active Problem List Diagnosis Date Noted ??? *Vaginal discharge 10/24/2023 ??? Gastroparesis 05/21/2023 ??? Irritable bowel syndrome with constipation 01/10/2022 ??? Adjustment disorder 12/12/2021 ??? Functional dyspepsia 12/19/2020 ??? Chronic constipation 12/19/2020 Past Medical History: Diagnosis Date ??? Abnormal uterine bleeding (AUB) ??? Adjustment disorder 12/12/2021 ??? Anxiety ??? Chronic constipation 12/19/2020 ??? Dyspareunia due to medical condition in female ??? Fibroid uterus ??? Functional dyspepsia 12/19/2020 ??? Gastroparesis 05/21/2023 ??? H/O gastric ulcer ??? Irritable bowel syndrome with constipation 01/10/2022 ??? Migraine w & wo aura Past Surgical History: Procedure Laterality Date ??? APPENDECTOMY ??? MAMMO STEREOTACTIC BIOPSY RIGHT N/A 08/16/2023 Mammo Stereotactic Biopsy Right 08/16/2023 Suzanna Izquierdo MD [facility] RAD MAMMOGRAPHY ??? PRO CYSTOURETHROSCOPY N/A 04/25/2023 CYSTO, CYSTOURETHROSCOPY, DIAGNOSTIC (WRVU 1.53) performed by Roma Lara MD at [facility] MAIN OR ??? PRO CYSTOURETHROSCOPY N/A 04/25/2023 CYSTO, CYSTOURETHROSCOPY, DIAGNOSTIC (WRVU 1.53) performed by Nicole Moses MD at [facility] MAIN OR ? ? PRO LAPAROSCOPY W TOT HYSTERECTUTERUS <=250 GRAM W TUBE/OVARY N/A 04/25/2023 LAPAROSCOPY, TOTAL HYST, UTERUS<250GMS, REM TUBE &/OR OVARY (WRVU 15) performed by Roma Lara MD at [facility] MAIN OR ??? PRO SLING OPER STRES INCONTINENCE N/A 04/25/2023 URETHRAL SUSPENSION, SLING\FASCIA OR SYNTHETIC (WRVU 12.13) [facility] ??? SINUS SURGERY Social History Tobacco Use ??? Smoking status: Former Types: Cigarettes ??? Smokeless tobacco: Never Substance Use Topics ??? Alcohol use: Not Currently Social History Substance and Sexual Activity Drug Use Not Currently Allergies Allergen Reactions ??? Fingolimod ??? Venlafaxine Other (See Comments) Headache ??? Aspirin ??? Ibuprofen Ulcers ??? Amitriptyline ??? Dimethyl Fumarate ??? Fluoxetine ??? Gabapentin exhaustion ??? Glatiramer (Copolymer 1) Medications: MAR and/or home medications have been reviewed. Physical Exam: Preprocedure Vitals Current as of 10/24/23 1548 BP: 113/71 Pulse: 108 Resp: 19 SpO2: 97 Temp: 37.2 ??C (98.9 ??F) Height: 157.5 cm (5' 2) (10/24/23) Weight: 48.1 kg (106 lb) (10/24/23) BMI: 19.39 IBW: 50.1 kg (110 lb 7.8 oz) Last edited 10/24/23 1500 by CAROLINA Currently displaying vitals information from multiple entries within 180 minutes of most recent vitals. Airway Assessment: Mallampati: I TM distance: >3 FB Neck ROM: full Cardiovascular Assessment: system normal Pulmonary Assessment: pulmonary exam normal Dental Assessment: Misc Assessment: IV access: Peripheral line Last Filed Perioperative Cognitive Screening None Anesthesia Plan: ASA 2 emergent general, with a(n) intravenous induction 53 yo female s/p abdominal hysterectomy (04/25) now presenting to the ED with vaginal cuff dehiscence and bowel protrusion to OR emergently for exp lap. Informed Consent: Anesthetic plan and risks discussed with patient. Plan discussed with GLOVE CUTTER. Anesthesia Screening documented in this encounter Plan of Treatment Upcoming Encounters Date Type Department Care Team (Late st Contact Info) Description 07/17/2024 1:00 PM EST Office Visit Obstetrics [place] [address] Roma Lara MD [facility] OBSTETRICS [place] [address] 10/27/2024 11:00 AM EST TH Visit (TeleHealth) [place] [phone] Kim Gonzalez MD [facility] [place] [address] documented as of this encounter Visit Diagnoses Not on filedocumented in this encounter Administered Medications Inactive Administered Medications - up to 3 most recent administrations Medication Order MAR Action Action Date Dose Rate Site ceFAZolin (Ancef) (100 mg/mL) injection solution Intravenous, PRN, Starting on Sun10/24/23 at 1629, Until Sun10/24/23 at 1920, Anesthesia Intra-op, Routine Given 10/24/2023 4:29 PM EST 2 g dexmedeTOMIDine (Precedex) (4 mcg/mL) bolus injection (Anesthsia) Intravenous, PRN, Starting on Sun10/24/23 at 1617, Until Sun10/24/23 at 1920, Anesthesia Intra-op, Routine Given 10/24/2023 4:48 PM EST 8 mcg Given 10/24/2023 4:17 PM EST 12 mcg HYDROmorphone (Dilaudid) (2 mg/mL) multi-dose injection solution Intravenous, PRN, Starting on Sun10/24/23 at 1647, Until Sun10/24/23 at 1920, Anesthesia Intra-op, Routine Given 10/24/2023 4:50 PM EST 0.5 mg Given 10/24/2023 4:47 PM EST 0.5 mg ketamine (Ketalar) (10 mg/mL) IV bolus injection (Anesthesia) Intravenous, PRN, Starting on Sun10/24/23 at 1640, Until Sun10/24/23 at 1920, Anesthesia Intra-op Given 10/24/2023 4:40 PM EST 20 mg lactated ringers infusion Intravenous, CONTINUOUS PRN, Starting on Sun10/24/23 at 1610, Until Sun10/24/23 at 1920, Anesthesia Intra-op New Bag 10/24/2023 4:10 PM EST lidocaine (pf) (Xylocaine) (20 mg/mL) 2% injection syringe Intravenous, PRN, Starting on Sun10/24/23 at 1613, Until Sun10/24/23 at 1920, Anesthesia Intra-op, Routine Given 10/24/2023 4:13 PM EST 40 mg metroNIDAZOLE (Flagyl) 500 mg in sodium chloride 0.9% 100 mL infusion Intravenous, PRN, Starting on Sun10/24/23 at 1620, Until Sun10/24/23 at 1920, Administer over 30 Minutes, Anesthesia Intra-op Given 10/24/2023 4:20 PM EST 500 mg ondansetron (pf) (Zofran) (2 mg/mL) injection Intravenous, PRN, Starting on Sun10/24/23 at 1824, Until Sun10/24/23 at 1920, Anesthesia Intra-op, Routine Given 10/24/2023 6:24 PM EST 8 mg PHENYLephrine (Cruz-Synephrine) (80 mcg/mL) in sodium chloride 0.9% 250 mL infusion Intravenous, CONTINUOUS PRN, Starting on Sun10/24/23 at 1621, Until Sun10/24/23 at 1920, Anesthesia Intra-op, Routine Rate/Dose Change 10/24/2023 4:39 PM EST 40 mcg/min 30 mL/hr Rate/Dose Change 10/24/2023 4:37 PM EST 60 mcg/min 45 mL/h r Rate/Dose Change 10/24/2023 4:32 PM EST 40 mcg/min 30 mL/h r PHENYLephrine in NS (PF) (CRUZ-SYNEPHRINE) 0.8 mg/10 mL (80 mcg/mL) multi-dose injection Syringe Intravenous, PRN, Starting on Sun10/24/23 at 1633, Until Sun10/24/23 at 1920, Anesthesia Intra-op, Routine Given 10/24/2023 4:37 PM EST 80 mcg Given 10/24/2023 4:33 PM EST 80 mcg propofoL (Diprivan) (10 mg/mL) infusion Intravenous, CONTINUOUS PRN, Starting on Sun10/24/23 at 1621, Until Sun10/24/23 at 1920, Anesthesia Intra-op, Routine New Bag 10/24/2023 4:21 PM EST 50 mcg/kg/min 14.43 mL/hr propofoL (Diprivan) 10 mg/mL bolus injection (Anesthesia) Intravenous, PRN, Starting on Sun10/24/23 at 1613, Until Sun10/24/23 at 1920, Anesthesia Intra-op Given 10/24/2023 4:14 PM EST 40 mg Given 10/24/2023 4:13 PM EST 100 mg rocuronium (Zemuron) (10 mg/mL) multi-dose injection Intravenous, PRN, Starting on Sun10/24/23 at 1628, Until Sun10/24/23 at 1920, Anesthesia Intra-op, Routine Given 10/24/2023 5:32 PM EST 20 mg Given 10/24/2023 4:28 PM EST 30 mg sodium chloride 0.9% infusion Intravenous, CONTINUOUS PRN, Starting on Sun10/24/23 at 1621, Until Sun10/24/23 at 1920, Anesthesia Intra-op New Bag 10/24/2023 5:00 PM EST New Bag 10/24/2023 4:21 PM EST succinylcholine (Anectine;Quelicin) (20 mg/mL) injection Intravenous, PRN, Starting on Sun10/24/23 at 1614, Until Sun10/24/23 at 1920, Anesthesia Intra-op, Routine Given 10/24/2023 4:14 PM EST 50 mg sugammadex (Bridion) 100 mg/mL injection Intravenous, PRN, Starting on Sun10/24/23 at 1835, Until Sun10/24/23 at 1920, Anesthesia Intra-op, Routine Given 10/24/2023 6:35 PM EST 200 mg documented in this encounter Care Teams Certified Massage Therapist Relationship Specialty Start Date End Date Dea Kc, INSULATOR HELPER [facility] [place] [address] PCP - General Family Medicine 04/12/23 documented as of this encounter
--- OUTSIDE RECORDS SUMMARY | 2024-07-04 02:59 | XMS_ITS | Encounter Summary ---
Author Organization [facility] [place] [address] Care Team Providers Care Communications Equipment Supervisor Name Role Phone Dea Kc APRN Primary Care Provider [phone] Reason for Visit * Reason Comments Medication Refill Encounter Details Date Type Department Care Team (Late st Contact Info) Description 11/30/2023 Refill [place] [phone] Kim Gonzalez MD [facility] [place] [address] Irritable bowel syndrome with constipation Social History Tobacco Use Types Packs/Day Years Used Date Smoking Tobacco: Former Cigarettes Smokeless Tobacco: Never Alcohol Use Standard Drinks/Week Comments Not Currently 0 (1 standard drink = 0.6 oz pur e alcohol) [facility] Inpatient Questions Answer Date Recorded [...] EST Office Visit Obstetrics [place] [address] Roma Lara MD [facility] OBSTETRICS [place] [address] 10/27/2024 11:00 AM EST TH Visit (TeleHealth) [place] [address] Kim Gonzalez MD [facility] [place] [address] documented as of this encounter Visit Diagnoses Diagnosis Irritable bowel syndrome with constipation Irritable bowel syndrome documented in this encounter Care Teams Communications Equipment Supervisor Relationship Specialty Start Date End Date Dea Kc, POWER SYSTEM ENGINEER [place] [place] [address] PCP - General Family Medicine 04/12/23 documented as of this encounter
--- OUTSIDE RECORDS SUMMARY | 2024-07-04 02:59 | XMS_ITS | Encounter Summary ---
Author Organization [facility] [place] [address] Care Team Providers Care Medication Manager Name Role Phone Dea Kc APRN Primary Care Provider [phone] Reason for Visit * Reason Onset Date Comments Medication Refill 10/23/2023 Encounter Details Date Type Department Care Team (Late st Contact Info) Description 10/23/2023 Refill [place] [address] Kim Gonzalez MD [facility] [place] [address] Irritable bowel syndrome with constipation Social History [...] EST Office Visit Obstetrics [place] [address] Roma Lara MD [facility] DR [place]ST[place] [address] 10/27/2024 11:00 AM EST TH Visit (TeleHealth) [place] [address] Kim Gonzalez MD [facility] [place] [address] documented as of this encounter Visit Diagnoses Diagnosis Irritable bowel syndrome with constipation Irritable bowel syndrome documented in this encounter Care Teams Medication Manager Relationship Specialty Start Date End Date Dea Kc [place] [address] [place] [address] PCP - General Family Medicine 04/12/23 documented as of this encounter
--- OUTSIDE RECORDS SUMMARY | 2024-07-04 02:59 | XMS_ITS | Encounter Summary ---
Author Organization [facility] [place] [address] Care Team Providers Care Emergency Room Doctor Name Role Phone Dea Kc APRN Primary Care Provider Encounter Details Date Type Department Care Team (Latest Contact Info) Description 10/18/2023 Travel Social History Tobacco Use Types Packs/Day [...] EST Office Visit Obstetrics [place] [address] Roma Lara MD [facility] DR OBSTETRICS [place] [address] 10/27/2024 11:00 AM EST TH Visit (TeleHealth) [place] [address] Kim Gonzalez MD [facility] [place] [address] documented as of this encounter Visit Diagnoses Not on filedocumented in this encounter Care Teams Emergency Room Doctor Relationship Specialty Start Date End Date Dea Kc, CARDROOM MANAGER [facility] [place] [address] PCP - General Family Medicine 04/12/23 documented as of this encounter
--- OUTSIDE RECORDS SUMMARY | 2024-07-04 02:59 | XMS_ITS | Encounter Summary ---
[place] [address] Care Team Providers Care Sugar House Supervisor Name Role Phone Dea Kc APRN Primary Care Provider [phone] Reason for Visit * Reason Onset Date Comments Prior Authorization 10/09/2023 Trigger Poin t Injection Encounter Details Date Type Department Care Team (Late st Contact Info) Description 10/09/2023 Telephone [place] [phone] Yumiko Anderson Prior Authorization (Trigger Point Injection) Social History Tobacco Use Types Packs/Day Years [...] encounter Miscellaneous Notes * Telephone Encounter - Yumiko Anderson - 10/09/2023 5:32 PM EST Voicemail in Prior Authorization Office from patient: Yumi McnallyNoemi - 74 She wanted a return call to her at ) [phone] and she said it was 'ok' to leave voicemail The message stated she was calling because she was trying to find out if trigger point injection are covered through Medicaid in [place] as she has an appt coming up on 10/18/23 that she needs to know if we had to do a prior authorization Appointment found in Patient Station with Dr. Roma Lara [facility] Our Prior Authorization Office does not obtain prior authorizations for in office procedures. I called patient back and left a message that she would need to call [place] Medicaid ([phone]) andwill need codes for trigger point injection Per check patient's [place] Medicaid ID # [id number], she is participating in the [place] Medicaid ACO program and none of the trigger point codes found on the ACO CPT list require prior authorization completedoutpatient. I called patient back and left another voicemail that because she is participating in the [place] Medicaid ACO program, no prior authorization is required for Trigger Point Injections according to [place] Medicaid ACO program list of codes. INJECTION, THERAPEUTIC (EG, LOCAL ANESTHETIC, CORTICOSTEROID), CARPAL TUNNEL (PER THE OVHA, SAME $ ) Prior Authorization is Waived for [facility] Attributed Patients INJECTION, ENZYME (EG, COLLAGENASE), PALMAR FASCIAL CORD (IE, DUPUYTREN'S CONTRACTURE) Prior Authorization is Waived for [facility] Attributed Patients INJECTION, TENDON SHEATH, LIGAMENT, TRIGGER POINTS OR GANGLION CYST Prior Authorization is Waived for [facility] Attributed Patients INJECTION; TENDON ORIGIN/INSERTION (FOR TENDON SHEATH, SEE ) Prior Authorization is Waived for [facility] Attributed Patients INJECTION; SINGLE OR MULTIPLE TRIGGER POINT(S), ONE OR TWO MUSCLE GROUP(S) Prior Authorization is Waived for [facility] Attributed Patients INJECTION; SINGLE OR MULTIPLE TRIGGER POINT(S), THREE OR MORE MUSCLE GROUPS (BILL ONE UNIT ONLY) Prior Authorization is Waived for [facility] Attributed Patients PLCMNT NEEDLS/CATHETRS INTO MUSCL&/OR SFT TISSUE FOR SUBSEQNT INTRSTTL RADIOELEMNT APPLCNT(@TME/SUBSQNT PROC) Prior Authorization is Waived for [facility] Attributed Patients documented in this encounter Plan of Treatment Upcoming Encounters Date Type Department Care Team (Late st Contact Info) Description 07/17/2024 1:00 PM EST Office Visit Obstetrics [place] [phone] Roma Lara MD [facility] DR OBSTETRICS [place] [address] 10/27/2024 11:00 AM EST TH Visit (TeleHealth) [place] [phone] Kim Gonzalez MD [facility] [place] [address] documented as of this encounter Visit Diagnoses Not on filedocumented in this encounter Care Teams Sugar House Supervisor Relationship Specialty Start Date End Date Dea Kc, ASSISTANT [place] [address] PCP - General Family Medicine 04/12/23 documented as of this encounter
--- OUTSIDE RECORDS SUMMARY | 2024-07-04 02:59 | XMS_ITS | Encounter Summary ---
Author Organization [facility] [address] Care Team Providers Care C Software Developer Name Role Phone Dea Kc APRN Primary Care Provider Reason for Visit * Reason Onset Date Comments Medication Refill 09/28/2023 Encounter Details Date Type Department Care Team (Late st Contact Info) Description 09/28/2023 Refill [place] [address] Kim Gonzalez MD [facility] [place] [address] Irritable bowel syndrome with constipation Social History [...] EST Office Visit Obstetrics [place] [address] Roma Lara MD [facility] DR OBSTET[place] [address] 10/27/2024 11:00 AM EST TH Visit (TeleHealth) [place] [address] Kim Gonzalez MD [facility] [place] [address] documented as of this encounter Visit Diagnoses Diagnosis Irritable bowel syndrome with constipation Irritable bowel syndrome documented in this encounter Care Teams C Software Developer Relationship Specialty Start Date End Date Dea Kc APRN [address] [place] [place] [address] PCP - General Family Medicine 04/12/23 documented as of this encounter
--- OUTSIDE RECORDS SUMMARY | 2024-07-04 02:59 | XMS_ITS | Encounter Summary ---
[facility] [place] [address] Care Team Providers Care Inorganic Chemistry Teacher Name Role Phone Dea Kc APRN Primary Care Provider [phone] Reason for Visit * Reason Comments Post Op Encounter Details Date Type Department Care Team (Late st Contact Info) Description 11/02/2023 11:20 AM EST Office Visit Obstetrics [place] [address] Dea Beth, [facility] [address] OBSTETRICS [place] [address] Dehiscence of vaginal cuff, subsequent encounter Social History Tobacco Use Types Packs/Day [...] Sign Reading Time Taken Comments Blood Pressure 139/77 11/02/2023 11:11 AM EST Pulse 84 11/02/2023 11:11 AM EST Temperature 36.9 ??C (98.4 ??F) 11/02/2023 11:[address] Respiratory Rate 14 11/02/2023 11:11 AM EST Oxygen Saturation 100% 11/02/2023 11:11 AM EST Inhaled Oxygen Concentration - - Weight - - Height - - Body Mass Index - - documented in this encounter Progress Notes * Dea Beth, DO - 11/02/2023 11:20 AM EST Images from the original note were not included. Post-operative Visit Patient ID: [id number] Peraza is an 53 y.o. woman who is post operative day #9 s/p diagnostic laparoscopy, bowel evaluation, and vaginal cuff revision for vaginal cuff dehiscence. She was treated for purulent peritonitis with IV abx and continued on Augmentin outpatient. PMH significant for vasomotor symptoms of menopause, vaginal atrophy, pelvic floor dysfunction, anxiety, chronic constipation, ho gastric ulcer, appendectomy, and migraine. S: Pain: well controlled Diet: tolerating regular diet without n/v Ambulating: without assistance, dizziness or SOB, has been out and walking Voiding: she continues to have pelvic floor spasms and the feeling of an infection at the end ofurination Bowel function: +BM, taking bowel regimen ROS - fever, chills, SOB, chest pain, leg pain, N/V O: Vitals Last value Range last 24 hrs Temperature Temp: 36.9 ??C (98.4 ??F) Temp: [36.9 ??C (98.4 ??F)] Heart Rate Heart Rate: 84 Heart Rate: [84] Blood Pressure BP: 139/77 BP: (139)/(77) Respiratory Rate Resp: 14 Resp: [14] SpO2 SpO2: 100 % SpO2: [100 %] PE General: Well appearing female. Cardiovascular: normal effort of breathing Abdomen: 5 laparoscopic scars, some pinpoint erythematous papules around the RUQ and umbilical portsites in the distribution of the tegaderm, <1cm ecchymosis at the medial aspect of the RLQ port site. + bowel sounds, no masses or hepatosplenomegaly; soft, nontender, nondistended Extremities: No calf tenderness or lower ext edema Neuro: grossly intact Pelvic: deferred Intraoperative images Purulent peritonitis with cuff dehiscence Cuff closure A/P: Patient is recovering well from surgery. She is meeting appropriate post- operative milestones and progressing in physical activity at home. #Vaginal Cuff Dehiscence (resolved) #Purulent Peritonitis (resolved) Patient is recovering well and progressing in post-operative recovery. No infectious signs today. We discussed possible etiology of cuff dehiscence. There remains concern that there could have been Cullen origin (patient has had many colonoscopies for GI complaints, diagnosed and then undiagnosed with Chron's in the past). We discussed with the patient that we will likely be reviewing her case as adepartment. She gave consent. She is interested in any thoughts that others may have. She denied any vaginal trauma. - finish 14 day course of Augmentin #Dysuria #Miduretheral sling Patient continues to have pain at the end of urination. Declines repeat UA today, as the pain is consistent with baseline. We discussed mesh erosion as a potential possibility, but we did not do cystoscopy at the time of surgery. In the setting of having a sling placed by , we will refer back to urogynecology. - Problem visit with Dr. Serrano (vaginal cuff repair) or Josué (sling placement) #Pelvic floor dysfunction - Routine fu with Dr. Lara - Tracee Henry This patient was seen and discussed with attending physician, Sravani MADDOX and Jane MADDOX. Dea Beth DO, PGY-2 Obstetrics and Gynecology 11/02/23 * Yue Lassiter MD - 11/02/2023 11:20 AM EST The case was discussed in person at the time of the visit or immediately after the visit. The assessment and plan were formulated in discussion with me and I agree with them as documented. I have reviewed the history, physical exam, assessment and plan with the resident. Yue Lassiter MD documented in this encounter Plan of Treatment Upcoming Encounters Date Type Department Care Team (Late st Contact Info) Description 07/17/2024 1:00 PM EST Office Visit Obstetrics [place] [address] Roma Lara MD [facility] [address] [place] [address] 10/27/2024 11:00 AM EST TH Visit (TeleHealth) [place] [address] Kim Gonzalez MD [facility] [place] [place] [address] documented as of this encounter Visit Diagnoses Diagnosis Dehiscence of vaginal cuff, subsequent encounter documented in this encounter Care Teams Inorganic Chemistry Teacher Relationship Specialty Start Date End Date Dea Kc, PROFESSOR OF BIOCHEMISTRY [facility] [place] [address] PCP - General Family Medicine 04/12/23 documented as of this encounter
--- OUTSIDE RECORDS SUMMARY | 2024-07-04 02:59 | XMS_ITS | Encounter Summary ---
[place] [address] Care Team Providers Care Solutions Engineer Name Role Phone Dea Kc APRN Primary Care Provider [phone] Reason for Visit * Reason Comments Abdominal Pain * Auth/Cert (Routine) Specialty Diagnoses / Procedures Referred By Contac t Referred To Contact Diagnoses Vaginal discharge Procedures EMERGENCY IPI Yue Lassiter MD [facility] OBSTETRICS AND [place] [address] [facility] Referral ID Status Reason Start Date Expiration Date Visits Re quested Visits Authorized [id number] 1 1 Encounter Details Date Type Department Care Team (Late st Contact Info) Description 10/24/2023 4:20 PM EST - 10/24/2023 6:58 PM EST [place] [address] Yue Lassiter MD [facility] OBSTETRICS AND [place] [address] @EXPLORATORY LAPAROTOMY, WITH/WITHOUT BIOPSY(S) (WRVU 12.54) Social History Tobacco Use Types Packs/Day Years Used Date Smoking Tobacco: Former Cigarettes Smokeless Tobacco: Never Alcohol Use Standard Drinks/Week Comments Not Currently 0 (1 standard drink = 0.6 oz pur e alcohol) [facility] Inpatient Questions Answer Date Recorded Does [...] Sign Reading Time Taken Comments Blood Pressure 128/116 10/24/2023 6:49 PM EST Pulse 102 10/24/2023 6:49 PM EST Temperature 36.4 ??C (97.5 ??F) 10/24/2023 6:49 PM ES T Respiratory Rate 18 10/24/2023 6:49 PM EST Oxygen Saturation 97% 10/24/2023 3:00 PM EST Inhaled Oxygen Concentration - - Weight 48.1 kg (106 lb) 10/24/2023 12:13 PM EST Height 157.5 cm (5' 2) 10/24/2023 12:13 PM EST Body Mass Index 19.39 10/24/2023 12:13 PM EST documented in this encounter Discharge Summaries * Dea Beth DO - 10/26/2023 10:51 AM EST Discharge Summary Patient Name: Yumi Peraza Patient Age: 53 y.o. Language: Micronesian Race: White Ethnicity: Not nor Admit date: 10/24/2023 Discharge date and time: 10/26/23 Attending Physician: Yue Lassiter MD Discharge Physician: Noel Viera MD Follow-up Recommendations for Providers: Future Appointments Date Time Provider Department Center 10/29/2023 8:30 AM Kim Gonzalez MD [facility] GASTRO [facility] 11/02/2023 11:20 AM Dea Beth DO [facility] OBG 5L [facility] 01/04/2024 11:00 AM Roma Lara MD [facility] OBG 5L [facility] Inpatient Provider Contact Information: Aylin MADDOX Discharge Diagnoses (Hospital Problems) and Secondary Diagnoses (Chronic Problems): Active Hospital Problems Diagnosis Vaginal discharge Resolved Hospital Problems No resolved problems to display. Active Non-Hospital Problems Diagnosis Gastroparesis Irritable bowel syndrome with constipation Adjustment disorder Functional dyspepsia Chronic constipation Operations/Major Procedures: 10/24/23 - Diagnostic laparoscopy and pelvic washout (Aylin), Laparoscopic evaluation of bowel (Sunny) Transvaginal vaginal cuff closure (Zach) History of Presentation: Yumi Peraza is a 53 y.o. female with PMH of total hysterectomy with urethral sling placement in April 2023 who presents to the Emergency Department with acute onset abdominal pain. Patient reports she was in her normal state of health until yesterday. She reports she was going tothe bathroom and felt like she couldn't get any urine out. She strained until she suddenly felt a pop and then proceeded to begin urinating. However this was also accompanied by the onset of severe ab dominal/pelvic pain. She reports it feels similar to when she was initially recovering from her hysterectomy, it hurts to move or to sit down. She reports the pain as 8/10. She's tried managing the pain with naproxen, which she last took at ~0730 this morning with only mild relief. She denies any hematuria or dysuria. Additionally starting today she's begun noticing some greenish-yellow discharge. It happens spontaneously, no correlation with coughing or bearing down, just when she's standing making a cup of coffee, for example. She initially thought it was urine based on how it looked on thepad however she says it feels more like the feeling of being and having her water break. She denies any subjective fever/chills, some nausea from the pain but no vomiting. No shortness of breath, no diarrhea. Hospital Course: Emergency room - Physical exam which showed bowel herniation into the vagina, unable to visualize cuff. Attempted to pack the bowel back with a wet sponge but unable to due to patient discomfort. Brought to OR emergently for diagnostic laparoscopy, closure of vaginal cuff. Postoperatively the patient was taken to PACU and on POD #0 was transferred to the floor. Post-operative course was uncomplicated. The patient was able to tolerate a regular diet and ambulate without difficulty. Peña catheter was removed on POD#1 and pt was able to void without issue. Their pain was well-controlled on oral medications (Tylenol and Ibuprofen, avoiding NSAIDS due to gastric ulcer hx) by the time of discharge. She had complete return of bowel function with a soft bowel movement before discharge. The patient was discharged home on POD #2 in stable condition with follow-up on November [address] Beth. We discussed discharge instructions and plan of care, all questions answered. #Vaginal Cuff Dehiscence #Purulent Peritonitis Met criteria for sepsis evaluation in the ED, where blood cultures were collected and Zosyn started. She received Ancef and Zosyn intraoperatively and then transitioned to Amp/Gent/Clinda. While peritoneal fluid culture has not had growth to date (did have antibiotics prior to collecting the culture), there were gram positive cocci on gram stain. The goal of the outpatient PO regimen is to cover enterococcus. Overall believe the infection is from vaginal kendal and not bowel kendal, as no bowel injury was seen during laparoscopy. She received IV antibiotics for approximately 48 hours. Curbside with Infectious Disease Dr. Light. Recommended Augmentin 875 mg BID for 7-14 days. Antibiotics can be stopped as soon as 7 days, but she should have an outpatient appointment to confirm no ongoing infection before discontinuing. We discussed that she is at high risk for intralobar abscess and ileus,so if she does not have a bowel movement in 2 days, develops severe abdominal pain, or has fever, she should call and present to care. Due to their post-operative pain the patient was given a prescription for oxycodone to take only for breakthrough pain not responsive to acetaminophen. The patient was counseled regarding the dangersof these medications including sedation which would impair their ability to drive safely. The potential for addiction with continued use of narcotic was discussed and the need to stop use as soon as possible. It was recommended that the patient promptly destroy unused medication or take them back to drop box locations. The opioid risk assessment was done, opioid informed consent reviewed and signed by patient, PDMP query completed. Discharge instructions discussing the risk of opioids are included in their discharge instructions which are printed and given to the patient at discharge. Vital signs at Discharge: BP: 128/81, Heart Rate: 94, Temp: 36.8 ??C (98.2 ??F), Resp: 18, BMI (Calculated): 19.39 Height: 157.5 cm (5' 2) (10/24/23 1213) Weight: 48.1 kg (106 lb) (10/24/23 1213) Functional and Cognitive status: wnl Important Studies and Lab Data: Labs: Last 3 wbc, hgb, hct plt Recent Labs 10/26/23 0421 10/25/23 0444 10/24/23 1232 WBC 4.5 6.4 12.2* HGB 11.9 11.7 15.8* HCT 34.6* 35.6* 44.7 PLATELET 146 127* 191 Studies: none Pending Studies and Lab Data: Microbiology cultures pending Discharge Conditions/Prognosis: good Discharge to: Home Updated Allergies/ADRs: Allergies Allergen Reactions Fingolimod Venlafaxine Other (See Comments) Headache Aspirin Ibuprofen Ulcers Amitriptyline Dimethyl Fumarate Fluoxetine Gabapentin exhaustion Glatiramer (Copolymer 1) Immunizations Given this Hospitalization: There is no immunization history on file for this patient. Discharge Medications: Your Medications New Medications Dose Details amoxicillin-clavulanate 875-125 mg tablet Commonly known as: Augmentin Take 1 tablet by mouth 2 times daily for 14 days. 1 tablet Quantity: 28 tablet Refills: 0 Continued medications with new dosing Dose Details acetaminophen 325 mg tablet Commonly known as: Tylenol Take 3 tablets by mouth every 6 hours. What changed: how much to take when to take this reasons to take this 975 mg Quantity: 30 tablet Refills: 1 oxyCODONE 5 mg tablet Commonly known as: Roxicodone Take 1 tablet by mouth every 4 hours as needed for Pain (for pain scale 6-8). What changed: reasons to take this 5 mg Quantity: 10 tablet Refills: 0 Continued medications, unchanged Dose Details Acetylcysteine 600 mg capsule Commonly known as: NAC Take by mouth. 2 pills bid Refills: 0 ascorbic acid (vitamin C) 100 mg tablet Commonly known as: Vitamin C Take 100 mg by mouth daily. 100 mg Refills: 0 cholecalciferol (Vitamin D3) 25 mcg (1,000 unit) Capsule daily. Refills: 0 fezolinetant 45 mg Tablet Take 45 mg by mouth daily. 45 mg Quantity: 30 tablet Refills: 3 folic acid 1 mg tablet Commonly known as: Vitamin B9 Take 1 mg by mouth daily. 1 mg Refills: 0 hyoscyamine SL 0.125 mg sublingual tablet Commonly known as: Levsin SL Take 1 tablet by mouth every 4 hours as needed for Cramping. Max 6 pills per day. 0.125 mg Quantity: 30 tablet Refills: 3 magnesium oxide 400 mg magnesium Capsule daily. Calcium and zinc Refills: 0 mecobalamin (vitamin B12) 1,000 mcg Tablet, Rapid Dissolve daily. Refills: 0 Myrbetriq 50 mg ER 24 hr tablet Take 50 mg by mouth daily. Generic drug: mirabegron 50 mg Refills: 0 omega-3 acid ethyl esters 1 gram capsule Commonly known as: Lovaza Take 2 g by mouth 2 times daily. 2 g Refills: 0 pantoprazole EC [address] tablet Commonly known as: Protonix Take 40 mg by mouth daily. 40 mg Refills: 0 plecanatide 3 mg tablet Commonly known as: Trulance Take 1 tablet by mouth daily. 3 mg Quantity: 90 tablet Refills: 3 polyethylene glycoL 17 gram/dose Powder Commonly known as: Miralax DISSOLVE 17 GRAMS (LINE IN CAP) IN LIQUID AND DRINK BY MOUTH TWICE DAILY Quantity: 850 g Refills: 3 prucalopride 2 mg tablet Commonly known as: Motegrity Take 1 tablet by mouth daily. 2 mg Quantity: 90 tablet Refills: 1 Retin-A 0.01 % Gel APPLY TO FACE ONCE DAILY. Generic drug: tretinoin Refills: 0 rizatriptan 10 mg disintegrating tablet Commonly known as: Maxalt-MASS COMMUNICATIONS PROFESSOR Take 10 mg by mouth as needed. 10 mg Refills: 0 tretinoin microspheres 0.1 % Gel Commonly known as: RETIN-A MICRO daily. Refills: 0 turmeric root extract 500 mg capsule daily. Refills: 0 UNABLE TO FIND Natures bounty (Hair, skin, and nails) Refills: 0 STOPPED Medications baclofen 10 mg tablet Commonly known as: Lioresal estradioL 0.01 % (0.1 mg/gram) Cream Commonly known as: ESTRACE ibuprofen 600 mg tablet Commonly known as: Advil ospemifene 60 mg tablet Commonly known as: Osphena Smoking Status at Discharge: Social History Tobacco Use Smoking Status Former Types: Cigarettes Smokeless Tobacco Never Instructions Given to Patient at Discharge: Patient Instructions PATIENT DISCHARGE INSTRUCTIONS - Laparoscopic abdominal washout and bowel survey, vaginal cuff closure Gynecology phone number: [phone]. After hours and on weekends please call hospital drier and evaporator operator [phone] and ask for Shirring Machine Operator Automatic lightning protection installer. Call your doctor if you develop: --A fever over 101 degrees --Severe pain --Increasing pain, redness, or discharge at any of your incisions --Heavy vaginal bleeding-soaking through a pad an hour --It is normal to have continuous or intermittent light spotting from the vagina for up to 6 weeks following hysterectomy Medications: Augmentin twice daily Postop visit: SundayNovember 01 at 11:[address] Beth Activity level: Let your body guide you- try to avoid grunting/groaning/straining for about 2 weeks. If you feel you did too much please listen to your body and back off. No sexual intercourse, no tampons, nothing in the vagina for 12 weeks. Diet: You may resume your regular diet. Be sure you drink plenty of fluids. Bowel Regimen: Please use your home bowel regimen. Please call if you go 2 days without a bowel movement. Driving: Do not drive until you are off of all narcotic medications and you are not feeling pain; usually between a couple of days to 2 weeks. Shower/Bath: Showering is fine. Short baths are okay but you should avoid having any abdominal incision submerged for more than 10-15 minutes for the next 2 weeks. Wound Care: Your incisions are closed with dissolvable stitches. The stitches do not need to be removed- they will dissolve on their own. The tape over the stiches will start to peal off and you can remove them. Pain Control: For your post-operative pain please use ibuprofen, acetaminophen, heating pad, and narcotic pain medication (oxycodone) for your pain management. Your goal is to be able to take severalshort walks every day (increase the duration each day) and to be able to sleep at night. If you areunable to do these things using the ibuprofen and acetaminophen and heating pad then you will need to use the narcotic pain medication (oxycodone) for breakthrough pain. You should be able to use less oxycodone every couple days and require no breakthrough narcotic pain medication in about 1-4 days. 1. Please use ibuprofen (Advil/Motrin) 600mg every 6 hours around the clock (with food) for the next 5-7 days. After that, use as needed. 2. Please use acetaminophen (Tylenol) 650mg every 6 hours as needed (or 1000mg every 8 hours as needed). Do not exceed 3000mg of acetaminophen from any source in 24 hours. 3. Please use oxycodone every 4-6 hours as needed for pain that ???breaks through?? the ibuprofen and acetaminophen. Please take your medication exactly as prescribed. Read all instructions that come with your medication. Using narcotic pain medication (such as oxycodone, hydrocodone, hydromorphone [Dilaudid], morphine,fentanyl, or tramadol [Ultram]) may cause addiction. While addiction is more common in people with a personal or family history of addiction, it can occur in anyone. Taking more than the prescribed amount of medication or using with alcohol or other drugs can causeyou to stop breathing resulting in coma, brain damage, or . Opioids (oxycodone, hydrocodone, hydromorphone [Dilaudid], morphine, fentanyl, tramadol [Ultram]) can slow reaction time, cause drowsiness, or cloud judgement. It is unsafe for you to drive or operate heavy machinery while taking this medication. Opioids (oxycodone, hydrocodone, hydromorphone [Dilaudid], morphine, fentanyl, tramadol [Ultram]) are at risk of being diverted by anyone with access to your home. Opioids should be stored in a safe and secure place, such as a locked cabinet or safe. Unused opioids (oxycodone, hydrocodone, hydromorphone [Dilaudid], morphine, fentanyl, tramadol [Ultram]) should be disposed of according to the label or patient information. If there are no specific instructions, medications may be returned to a take-back location or mixed with a small amount of water and an undesirable waste substance such as coffee grounds or cat litter. General Instructions None Future Appointments and Orders Future Appointments and Orders Future Appointments Provider Department Dept Phone 10/29/2023 8:30 AM Kim Gonzalez MD Gastroenterology at [facility] Arrive at: Home [phone] To view instructions for your video visit, click here, or visit this website: [email or web address] If you have not previously downloaded the [facility] patient portal software, Rudder, or the [employer] polo, please do so by clicking one of these links below or searching in your device's polo store. For all desktops/laptops; for Android devices; for Apple/iOS devices Please test your camera and microphone prior to your video visit. FAQs: Join Video Visit button not connecting? - This may be due to pop-up blockers. - Click this link to see: How to Disable Pop-Up Block for my[facility] Video Visits Zoom asking for a meeting password? - Exit out of the Zoom program and try the link again 11/02/2023 11:20 AM Dea Beth DO Obstetrics and Gynecology at [facility] Arrive at: Manager Zone Area [phone] 01/04/2024 11:00 AM Roma Lara MD Obstetrics and Gynecology at [facility] Arrive at: Manager Zone Area [phone] Discharge References/Attachments None Provider Contact Information: Dea Kc, LICENSED FUNERAL DIRECTOR AND EMBALMER [phone] Dea Beth DO, PGY-2 Obstetrics and Gynecology 10/26/23 documented in this encounter Discharge Instructions * Patient Instructions* Dea Beth DO - 10/26/2023 10:37 AM EST PATIENT DISCHARGE INSTRUCTIONS - Laparoscopic abdominal washout and bowel survey, vaginal cuff closure Gynecology phone number: [phone]. After hours and on weekends please call hospital drier and evaporator operator [phone] and ask for Shirring Machine Operator Automatic lightning protection installer. Call your doctor if you develop: --A fever over 101 degrees --Severe pain --Increasing pain, redness, or discharge at any of your incisions --Heavy vaginal bleeding-soaking through a pad an hour --It is normal to have continuous or intermittent light spotting from the vagina for up to 6 weeks following hysterectomy Medications: Augmentin twice daily Postop visit: SundayNovember 01 at 11:[address] Beth Activity level: Let your body guide you- try to avoid grunting/groaning/straining for about 2 weeks. If you feel you did too much please listen to your body and back off. No sexual intercourse, no tampons, nothing in the vagina for 12 weeks. Diet: You may resume your regular diet. Be sure you drink plenty of fluids. Bowel Regimen: Please use your home bowel regimen. Please call if you go 2 days without a bowel movement. Driving: Do not drive until you are off of all narcotic medications and you are not feeling pain; usually between a couple of days to 2 weeks. Shower/Bath: Showering is fine. Short baths are okay but you should avoid having any abdominal incision submerged for more than 10-15 minutes for the next 2 weeks. Wound Care: Your incisions are closed with dissolvable stitches. The stitches do not need to be removed- they will dissolve on their own. The tape over the stiches will start to peal off and you can remove them. Pain Control: For your post-operative pain please use ibuprofen, acetaminophen, heating pad, and narcotic pain medication (oxycodone) for your pain management. Your goal is to be able to take severalshort walks every day (increase the duration each day) and to be able to sleep at night. If you areunable to do these things using the ibuprofen and acetaminophen and heating pad then you will need to use the narcotic pain medication (oxycodone) for breakthrough pain. You should be able to use less oxycodone every couple days and require no breakthrough narcotic pain medication in about 1-4 days. 1. Please use ibuprofen (Advil/Motrin) 600mg every 6 hours around the clock (with food) for the next 5-7 days. After that, use as needed. 2. Please use acetaminophen (Tylenol) 650mg every 6 hours as needed (or 1000mg every 8 hours as needed). Do not exceed 3000mg of acetaminophen from any source in 24 hours. 3. Please use oxycodone every 4-6 hours as needed for pain that ???breaks through?? the ibuprofen and acetaminophen. Please take your medication exactly as prescribed. Read all instructions that come with your medication. Using narcotic pain medication (such as oxycodone, hydrocodone, hydromorphone [Dilaudid], morphine,fentanyl, or tramadol [Ultram]) may cause addiction. While addiction is more common in people with a personal or family history of addiction, it can occur in anyone. Taking more than the prescribed amount of medication or using with alcohol or other drugs can causeyou to stop breathing resulting in coma, brain damage, or . Opioids (oxycodone, hydrocodone, hydromorphone [Dilaudid], morphine, fentanyl, tramadol [Ultram]) can slow reaction time, cause drowsiness, or cloud judgement. It is unsafe for you to drive or operate heavy machinery while taking this medication. Opioids (oxycodone, hydrocodone, hydromorphone [Dilaudid], morphine, fentanyl, tramadol [Ultram]) are at risk of being diverted by anyone with access to your home. Opioids should be stored in a safe and secure place, such as a locked cabinet or safe. Unused opioids (oxycodone, hydrocodone, hydromorphone [Dilaudid], morphine, fentanyl, tramadol [Ultram]) should be disposed of according to the label or patient information. If there are no specific instructions, medications may be returned to a take-back location or mixed with a small amount of water and an undesirable waste substance such as coffee grounds or cat litter. documented in this encounter Medications at Time of Discharge [...] 50 mg by mouth daily. 05/31/2017 rizatriptan (MAXALT-MASS COMMUNICATIONS PROFESSOR) 10 mg Tablet, Rapid Dissolve Take 10 mg by mouth as needed. 04/18/2021 pantoprazole EC (Protonix) 40 mg Tablet, Delayed Release (E.C.) Take 40 mg by mouth daily. amoxicillin-clavulanate (Augmentin) 875-125 mg tablet Take 1 tablet by mouth 2 times daily for 14 days. 28 tablet 10/26/2023 11/09/2023 acetaminophen (Tylenol) 325 mg tablet Take 3 tablets by mouth every 6 hours. 30 tablet 1 10/26/2023 11/29/2023 oxyCODONE (Roxicodone) 5 mg tablet Take 1 tablet by mouth every 4 hours as needed for Pain (for pain scale 6-8). 10 tablet 10/26/2023 11/29/2023 plecanatide (Trulance) 3 mg tabletIndications:Irrita ble bowel syndrome with constipation Take 1 tablet by mouth daily. 90 tablet 3 10/23/2023 05/06/2024 fezolinetant 45 mg TabletIndications:Hot flashes Take 45 mg by mouth daily. 30 tablet 3 10/18/2023 11/29/2023 polyethylene glycoL (Miralax) 17 gram/dose PowderIndications:Irrita ble bowel syndrome with constipation DISSOLVE 17 GRAMS (LINE IN CAP) IN LIQUID AND DRINK BY MOUTH TWICE DAILY 850 g 3 09/28/2023 12/27/2023 hyoscyamine SL (Levsin SL) 0.125 mg sublingual tabletIndications:Irrita ble bowel syndrome with constipation Take 1 tablet by mouth every 4 hours as needed for Cramping. Max 6 pills per day. 30 tablet 3 08/01/2023 12/03/2023 prucalopride (Motegrity) 2 mg tabletIndications:Irrita ble bowel syndrome with constipation Take 1 tablet by mouth daily. 90 tablet 1 08/01/2023 04/28/2024 tretinoin microspheres (RETIN-A MICRO) 0.1 % Gel daily. 03/29/2022 04/28/2024 documented as of this encounter Progress Notes * Dea Beth DO - 10/26/2023 10:37 AM EST SOAP Note Patient ID: Yumi Peraza is an 53 y.o. woman who is post operative day #2 s/p diagnostic laparoscopy, bowel evaluation, and vaginal cuff revision for vaginal cuff dehiscence. PMH significantfor vasomotor symptoms of menopause, vaginal atrophy, pelvic floor dysfunction, anxiety, chronic constipation, ho gastric ulcer, appendectomy, and migraine. S: Patient is feeling well. She just had a soft bowel movement without issue. Pain is well controlled. She notes being able to bend over with ease. She recounts that she cannot think of any inciting events. She does exercise regularly and does some weight lifting, but with light freeweights. She does not restrict any protein or foods in her diet. She manages her chronic constipation well resulting in mostly soft stools. She verbally consents to a case study if we decide to do one and would be interested in what we find. is at bedside and son is on the way to pick her up (~2 hours). O: Vitals Last value Range last 24 hrs Temperature Temp: 36.8 ??C (98.2 ??F) Temp: [36.7 ??C (98.1 ??F)-37.5 ??C (99.5 ??F)] Heart Rate Heart Rate: 94 Heart Rate: [82-94] Blood Pressure BP: 128/81 BP: (107-128)/(64-81) Respiratory Rate Resp: 18 Resp: [18-20] SpO2 SpO2: 100 % SpO2: [97 %-100 %] PE General: Well appearing Skin: no rashes Cardiovascular: normal effort of breathing A/P: #Vaginal Cuff Dehiscence #Purulent Peritonitis Reviewed return precautions with the patient. Discussed stopping vaginal medications, such as estrogen and baclofen. Discussed antibiotic plan. Reviewed bowel care. Reviewed and signed the opioid consent form. Discharge follow up scheduled. Discharge orders placed. Dea Beth DO, PGY-2 Obstetrics and Gynecology 10/26/23 * Linda Ramesh MD - 10/26/2023 9:41 AM EST Urogynecology - Progress Note Yumi Peraza is a 53 y.o. woman s/p diagnostic laparoscopy by general MEMBERSHIP MANAGER, bowel evlauation by general surgery, and vaginal cuff closure (vaginal approach) by urogynecology. Subjective: Yumi is feeling well this morning. She reports her only complaint is feeling a bit gassy. She ispassing flatus, but no BM yet. She reports that she felt a similar sensation after her hysterectomy. She denies any abdominal or pelvic pain. She denies fevers, chills, night sweats or malaise. She is tolerating a regular diet and voiding volitionally without issue. She denies vaginal discharge or bleeding. Denies chest pain, palpitations, shortness of breath, nausea / vomiting, or leg pain. Physical Exam: Last Set of Vitals and range of vitals over past 24 hours: Last value Range last 24 hrs Temperature Temp: 36.8 ??C (98.2 ??F) Temp: [36.7 ??C (98.1 ??F)-37.5 ??C (99.5 ??F)] Heart Rate Heart Rate: 94 Heart Rate: [82-94] Blood Pressure BP: 128/81 BP: (107-128)/(64-81) Respiratory Rate Resp: 18 Resp: [18-20] SpO2 SpO2: 100 % SpO2: [97 %-100 %] Gen: Resting comfortably in bed. NAD. Neuro: Alert and oriented. Cardiac: Regular rate Pulm: NO increased work of breathing on room air Abd: +BS. Soft. Mildly tender to palpation. No rebound or guarding. Incisions: covered with bandages : No discharge on benja-pad Assessment and Plan 53 y.o. female POD#2 s/p above procedure for for bowel evisceration after vaginal cuff dehiscence. From post-operative point of view from urogynecology vaginal closure from vaginal approach, patient is doing well this morning, without concerns. Urogynecology team will sign off at this time, please contact on-call fellow with any additional issues. Discussed with Dr. Zach Ramesh MD PGY-5 Female Pelvic Medicine and Reconstructive Surgery Fellow Associated attestation - Misha Campos MD - 10/27/2023 10:03 AM EST I discussed with Dr. Ramesh and agree with her findings and plan, as documented in the note above,which I have reviewed and edited. The patient had been discharged before I saw her in person today. MISHA CAMPOS MD * Dea Beth, DO - 10/26/2023 8:30 AM EST SOAP Note Patient ID: Yumi Peraza is an 53 y.o. woman who is post operative day #2 s/p diagnostic laparoscopy, bowel evaluation, and vaginal cuff revision for vaginal cuff dehiscence. PMH significantfor vasomotor symptoms of menopause, vaginal atrophy, pelvic floor dysfunction, anxiety, chronic constipation, ho gastric ulcer, appendectomy, and migraine. S: Felling well. No fever, chills, SOB, chest pain, leg pain. O: Vitals Last value Range last 24 hrs Temperature Temp: 36.8 ??C (98.2 ??F) Temp: [36.7 ??C (98.1 ??F)-37.5 ??C (99.5 ??F)] Heart Rate Heart Rate: 94 Heart Rate: [82-94] Blood Pressure BP: 128/81 BP: (107-128)/(64-81) Respiratory Rate Resp: 18 Resp: [18-20] SpO2 SpO2: 100 % SpO2: [97 %-100 %] Labs CBC Lab Results Component Value Date WBC 4.5 10/26/2023 Hemoglobin 11.9 10/26/2023 Hematocrit 34.6 (L) 10/26/2023 Platelets 146 10/26/2023 Blood cultures: no growth to date Peritoneal fluid culture: no growth to date, gr positive cocci (antibiotics initiated prior to culture) A/P: #Purulent Peritonitis Curbside with Infectious Disease Dr. Light. Recommended Augmentin 875 mg BID for 7-14 days. Antibiotics can be stopped as soon as 7 days, but she should have an outpatient appointment to confirm no ongoing infection before discontinuing. While peritoneal fluid culture has not had growth to date (did have antibiotics prior to collecting the culture), there were gram positive cocci on gram stain. The goal of the outpatient PO regimen is to cover enterococcus. Overall believe the infection is fromvaginal kendal and not bowel kendal, as no bowel injury was seen during laparoscopy. This patient was discussed with attending Corporate Safety Director physician, Dr. Viera. Dea Beth DO, PGY-2 Obstetrics and Gynecology 10/26/23 * Dea Beth DO - 10/26/2023 6:02 AM EST Gynecology Post Operative Progress Note ID: Yumi Peraza is an 53 y.o. woman who is post operative day #2 s/p diagnostic laparoscopy, bowel evaluation, and vaginal cuff revision for vaginal cuff dehiscence. PMH significant for vasomotor symptoms of menopause, vaginal atrophy, pelvic floor dysfunction, anxiety, chronic constipation, ho gastric ulcer, appendectomy, and migraine. Intraoperative Events: -Findings: Open vaginal cuff, edges with some fibrosis. At laparoscopy, purulent drainage in abdomen, pelvis. Per Dr. Correa, no bowel injury with running the bowel laparoscopically. Cuff with white changes around the cuff. Subjective: Yumi Peraza reports that is doing well. Pain has improved. Her pain has been well controlled with acetaminophen and 1x10 mg oxycodone overnight. She has been ambulating and wearing SCDs when in bed. She continues to have a cough that exacerbates her abdominal pain. She did not receive the chloraseptic spray yesterday. She is eating a regular diet and drinking water throughout the night without N/V. No BM yet, but did have two small events of gas (one yesterday and one overnight). Burping has resolved. Patient doeshave a bowel regimen at home that includes miraxlax BID and motilin. Motilin was not on formulary, so the patient is having her bring it in to be verified with pharmacy and given while inpatient. She notes that she is voiding a lot and regularly having to get up during the night. She recites three of her overnight outputs to be 300, 400, and 450 ml. While she was not able to shower yesterday, the diffuse itching across her abdomen has improved. ROS: in addition to above, denies chest pain, shortness of breath, fever, chills, lightheadedness, dizziness, and leg pain. Objective: Last value Range last 24 hrs Temperature Temp: 36.7 ??C (98.1 ??F) Temp: [36.7 ??C (98.1 ??F)-37.5 ??C (99.5 ??F)] Heart Rate Heart Rate: 94 Heart Rate: [82-94] Blood Pressure BP: 111/64 BP: (107-120)/(64-76) Respiratory Rate Resp: 18 Resp: [18-20] SpO2 SpO2: 98 % SpO2: [97 %-100 %] Art BP BP (Arterial Line): 110/66 BP (Arterial Line): -- I/O last 3 completed shifts: In: 3280 [I.V.:2803; IV Piggyback:477] Out: 2054 [Urine:2049; Blood:5] I/O this shift: In: 400 [P.O.:400] Out: 350 [Urine:350] UOP: not recorded over last 6 recorded hours, prior 1.2 mk/kg/hr over the prior 6 hours Recorded net since admission: +1.275 Physical Exam Gen: NAD, resting supine and easily arousable. Cardio: RRR, no MRG Pulm: CTAB, no wheezes or crackles. Abd: normoactive bowel sounds, soft, non-distended, mildly tender to palpation, no excoriations or erythema Incision: incisions located in each quadrant and the umbilicus with steristrips covered by 2x2 and tegaderm. LUQ and LLQ gauze with scant strikethrough, dressings otherwise C/D/I Ext: warm, well-perfused, no edema bilaterally, SCDs at bedside. : no blood on pad Laboratory (Last 24 Hours): Lab Results Component Value Date WBC 4.5 10/26/2023 HGB 11.9 10/26/2023 HCT 34.6 (L) 10/26/2023 MCV 95.8 (H) 10/26/2023 PLATELET 146 10/26/2023 Peritoneal culture - 10/25: Many neuts, few gram positive cocci Assessment and Plan: Yumi Peraza is an 53 y.o. woman s/p above procedure. Patient is doing overall. Goals are to continue ambulation and closely monitor bowel function. Ideally she would have a bowel movement before discharge. Watching closely for risk of ileus and intraabdominal abscess f ormation. We will continue broad spectrum antibiotics until culture result and then consult ID for outpatient PO regimen. We spent time today's goals with the patient. Please see systems-based assessment below. Pain Control: Adequate pain control with mostly Tylenol, only used 1x10mg oxycodone within the past12 hours, not using IV dilaudid -- ordered for Tylenol scheduled, oxycodone range order, and IV Dilaudid PRN. -- Avoid NSAIDS due to hx ulcer. Cardiac/Heme: #New Thrombocytopenia Improved (Plts 190>127>146) New thrombocytopenia likely dilutional. Vital signs wnl. Currently normotensive and hemodynamically stable. Hgb 11.7 this AM. -- cbc PRN Pulmonary: Adequate o2 sats on RA -- encourage incentive spirometry. -- Chloraseptic spray, encouraged the patient to ask for it Gastrointestinal: #Hx Gastric Ulcer #Chronic Constipation #s/p appendectomy Risk for ileus due to purulent peritonitis. Avoiding pericolace due to patient intolerance. -- Regular diet ordered. -- Zofran prn nausea. -- Verify patient motilin with pharmacy -- Scheduled Miralax BID scheduled for constipation. -- Protonix daily Genitourinary: Last recorded adequate UOP. Most current UOP subjectively adequate per patient report. Peña removed POD#1. -- strict I/Os. Fluid/ Electrolytes: Tolerating PO intake. -- CMP PRN ID: #Purulent peritonitis Concern for sepsis in the Emergency Room based. Not showing signs at thistime. Source controlled. UA wnl. Received Ancef and Zosyn preoperatively. Afebrile. No tachycardia.Leukocytosis resolved WBC 12.2->6.4>4.5. -- Amp/Gent/Clinda -- Fu peritoneal culture and narrow antibiotics as indicated -- Fu blood cultures (collected in ED) -- ID consultation for PO outpatient, page Dr. Light at [id number] after 8AM Endocrine: none Psychiatry: #Anxiety Not on medications Neuro: #Hx Migraine Gynecology: #Vaginal Cuff Dehiscence #Pelvic Floor Dysfunction #Vaginal Atrophy #Vasomotor Symptomss/p above procedure -- Holding all home medications -- Postoperative follow-up to be arranged outpatient. Skin: #Pruritus (improved) Previously located diffusely on abdomen. No signs of dermatitis. Was notable to shower yesterday. -- Consider shower and/or removing tegaderm if pruritus returns Prophylaxis: Received 5000u subq Heparin preoperatively. -- Lovenox 40mg sq daily stared POD#1 -- incentive spirometry. -- encourage ambulation. -- SCDs. Disposition: -- Continues to require inpatient hospitalization. -- Must meet return of bowel function milestone for discharge. -- Discharge planning - needs to know early in the day when she will be discharged so that both blanca and can come and slat pickler the extra personal vehicle here Code Status: Full Code This patient was discussed with attending Corporate Safety Director physician, Dr. Viera. Dea Beth DO, PGY-2 Obstetrics and Gynecology 10/26/23 * Linda Ramesh MD - 10/25/2023 9:34 AM EST Urogynecology - Progress Note Yumi Peraza is a 53 y.o. woman s/p diagnostic laparoscopy by general MEMBERSHIP MANAGER, bowel evlauation by general surgery, and vaginal cuff closure (vaginal approach) by urogynecology. Subjective: Yumi is feeling okay this morning, she is very bothered my her peña cathetrer at the time of this exam and has an RN milking the catheter. She denies other pain besides the discomfort from the catheter. She denies nausea and tolerated a normal breakfast. She had not yet ambulated, but plans to soon. She is very motivated to walk to allow for peña catheter removal. No bleeding or discharge per vagina. Denies chest pain, palpitations, shortness of breath, fevers / chills, nausea / vomiting, or leg pain. Physical Exam: Last Set of Vitals and range of vitals over past 24 hours: Last value Range last 24 hrs Temperature Temp: 36.8 ??C (98.2 ??F) Temp: [36.4 ??C (97.5 ??F)-37.8 ??C (100 ??F)] Heart Rate Heart Rate: 89 Heart Rate: [81-108] Blood Pressure BP: 101/64 BP: (96-233)/(39-205) Respiratory Rate Resp: 18 Resp: [15-29] SpO2 SpO2: 98 % SpO2: [92 %-100 %] Gen: Resting comfortably in bed. NAD. Neuro: Alert and oriented. Cardiac: Regular rate Pulm: NO increased work of breathing on room air Abd: +BS. Soft. Mildly tender to palpation. No rebound or guarding. Incisions: covered with bandages : Peña draining pale yellow urine.Scant discharge on benja-pad Assessment and Plan 53 y.o. female POD#1 s/p above procedure for for bowel evisceration after vaginal cuff dehiscence. From post-operative point of view from urogynecology vaginal closure from vaginal approach, patient is doing well this morning, without concerns. We discussed her surgical findings and events. Questions elicited and answered. She is wondering about discharge timing. I reached out to primary MEMBERSHIP MANAGER team to [place] back to patient to answer these questions. Discussed with Dr. Zach Ramesh MD PGY-5 Female Pelvic Medicine and Reconstructive Surgery Fellow Associated attestation - Misha Campos MD - 10/25/2023 10:21 AM EST I have seen the patient in person and reviewed the fellow's above history and I agree with the details as written. The assessment and plan were formulated in discussion with me and I agree with them as documented. Pertinent History: Ms. Peraza is a 53 y.o. woman who is POD#1 s/p laparoscopy and bowel evaluation, vaginal repair of vaginal cuff dehiscence. Pertinent Exam: I was present for the examination and agree with Dr. Ramesh's note. Major issues addressed: S/p laparoscopy, findings of pelvic, abdominal purulence, s/p vaginal cuff dehiscence repair, vaginal approach. Plan: I reviewed the fellow's note and agree with the documented findings and plan of care. MISHA CAMPOS MD Division of Urogynecology and Reconstructive Pelvic Surgery * Sharifa Correa MD - 10/25/2023 9:07 AM EST Acute Care Surgery Inpatient Consult Progress Note Admission Date: 10/24/2023 Primary Team: Benign Socket Welder Helper [id number] ID: Yumi Peraza is a 53 y.o. female with PMH of total hysterectomy with urethral sling placement in April 2023 who presented to the Emergency Department with acute onset abdominal pain on 10/24 and found to have dehiscence her vaginal cuff and taken to the OR for diagnostic laparoscopy w/Benign Gynecology that same day for which General Surgery is consulted for bowel evaluation. Procedures: 10/25/23: diagnostic laparoscopy w/ purulent peritonitis, Vaginal cuff closure (Gynecology) 10/25/23: small bowel evaluation without any defect (Sunny) Subjective Interval Events/Subjective: - To OR for above procedures - Endorses some abdominal pain this AM but no fevers, chills, nausea or vomiting. No flatus - Af, HR 80s-100s, on RA. WBC 6.4 (12.2). Continues on ampicillin, clindamycin and gentamicin. Objective Vitals: Last Value Range last 24 hrs Temperature Temp: 37 ??C (98.6 ??F) Temp: [36.4 ??C (97.5 ??F)-37.8 ??C (100 ??F)] Heart Rate Heart Rate: 89 Heart Rate from SpO2: 92 bpm Heart Rate: [81-108] Heart Rate From SP02 Min: 69 bpm Max: 95 bpm Blood Pressure BP: 109/70 BP: (96-233)/(39-205) BP (Arterial Line): (102-138)/(56-76) MAP MAP (NBP): [57 mmHg-215 mmHg] Respiratory Rate Resp: 20 Resp: [15-29] SpO2 SpO2: 99 % SpO2: [92 %-100 %] O2 Device O2 Device: None (Room air) Intake/Output: 10/24 0701 - 10/25 0700 In: 2803 [I.V.:2803] Out: 1430 [Urine:1425] Physical Exam: GEN: resting comfortably in bed, pleasant, conversant, NAD HEENT: normocephalic, atraumatic CHEST: comfortable work of breathing on RA CV: regular rate, well perfused ABD: soft, nondistended, diffusely tender w/ port-sites covered w/ guaze and tegaderms w/o strikethrough EXTR: moving all extremities spontaneously, no edema NEURO: awake and alert, grossly intact, nonfocal, follows commands Labs: Recent Labs 10/25/23 0444 10/24/23 1232 WBC 6.4 12.2* HGB 11.7 15.8* HCT 35.6* 44.7 PLATELET 127* 191 Recent Labs 10/24/23 1232 NA 143 K 3.8 CL 104 CO2 28 BUN 15 CREATININE 0.68* GLUCOSE 97 CALCIUM 9.7 Recent Labs 10/24/23 1232 PROT 7.2 ALBUMIN 4.4 BILITOT 0.6 BILIDIR 0.2 ALKPHOS 52 AST 25 ALT 23 Recent Labs 10/24/23 1622 10/24/23 1350 LACTATEVEN 0.9 0.9 Studies: No imaging Impression and Recommendations: Yumi Peraza is a 53 y.o. female with PMH of total hysterectomy with urethral sling placement in April 2023 who presented to the Emergency Department with acute onset abdominal pain on 10/24and found to have dehiscence her vaginal cuff and taken to the OR for diagnostic laparoscopy w/ Benign Gynecology that same day for which General Surgery is consulted for bowel evaluation. EvaluationIntraOp revealed purulent peritonitis and the small bowel was run by general surgery laparoscopically and there was no defects noted and therefore it was not further manipulated. This morning, her abdomen is tender as one would expect given the IntraOp findings and will defer further management to the gynecology team. Recommendations: -No further operative intervention per general surgery -Remainder of care per primary -No follow-up needed from a general surgery perspective. Above recommendations discussed with primary team. All plans formulated in discussion with and directed by attending surgeon Dr. Correa. Thank you for this consult. If you have any questions, please page [phone]. Consult service will sign-off. Lorena Hidalgo MD 10/25/2023 Acute Care Surgery Service [phone] Attending Addendum I have seen and examined the patient, I have reviewed the vitals, labs and pertinent imaging. I have seen this patient in conjunction with the resident. I have indepently reviewed and assessed the data for this patient. The management plan was formulated in discussion with me. I have the following comments: Not having pain as such but feeling bloated this afternoon after eating throughout the day. She shares that she has had problems with motility in the past and so is concerned that could happen again.Ok for bowel regimen from our standpoint. Could certainly develop ileus given extent of purulence within the abdomen at time of exploration. Will defer further care to the primary team, please contact us if new concerns arise. Sharifa Correa MD [phone] * Yue Lassiter MD - 10/25/2023 6:00 AM EST Gynecology Post Operative Progress Note ID: Yumi Peraza is an 53 y.o. woman who is post operative day #1 s/p diagnostic laparoscopy, bowel evaluation, and vaginal cuff revision for vaginal cuff dehiscence. PMH significant for vasomotor symptoms of menopause, vaginal atrophy, pelvic floor dysfunction, anxiety, chronic constipation, ho gastric ulcer, appendectomy, and migraine. Intraoperative Events: -Findings: Open vaginal cuff, edges with some fibrosis. At laparoscopy, purulent drainage in abdomen, pelvis. Per Dr. Correa, no bowel injury with running the bowel laparoscopically. Cuff with white changes around the cuff. Subjective: Yumi Peraza reports that is doing well. Pain is currently a 4/10, located diffusely in the abdomen but more so in the lower abdomen. Her pain has been well controlled with acetaminophen [id number] mg oxycodone overnight. She does notice some dizziness with oxycodone, so she took a tylenol now, plans to ambulate, and then take an additional oxycodone. She reports coughing, which is exacerbating abdominal pain. She did have some immediate post-op nausea that has improved. She has since had some crackers and jello. She plans to have an egg sandwich for breakfast. She has been drinking water throughout the night without N/V. No flatus or BM yet. Does have a lot of burping. Patient does have a bowel regimen at home that includes miraxlax BID and motilin. She were prefer her home regimen. Pericolace makes her feel nauseous. She is having diffuse itching across her abdomen. She had SCDs on throughout the night and just took them off as she prepares to ambulate. Her peña catheter remains in place. ROS: in addition to above, denies chest pain, shortness of breath, fever, chills, lightheadedness, dizziness, and leg pain. Objective: Last value Range last 24 hrs Temperature Temp: 36.8 ??C (98.2 ??F) Temp: [36.4 ??C (97.5 ??F)-37.8 ??C (100 ??F)] Heart Rate Heart Rate: 89 Heart Rate: [81-108] Blood Pressure BP: 101/64 BP: (96-233)/(39-205) Respiratory Rate Resp: 18 Resp: [15-29] SpO2 SpO2: 98 % SpO2: [92 %-100 %] Art BP BP (Arterial Line): 110/66 BP (Arterial Line): (102-138)/(56-76) I/O last 3 completed shifts: In: 1600 [I.V.:1600] Out: 555 [Urine:550; Blood:5] I/O this shift: In: 1203 [I.V.:1203] Out: 875 [Urine:875] UOP: 66 mL/ hour over last 6 recorded hours Recorded net since admission: +1.373 L Physical Exam Gen: NAD, sleeping and easily arousable. Cardio: RRR, no MRG Pulm: CTAB, no wheezes or crackles. Abd: normoactive bowel sounds, soft, non-distended, mildly tender to palpation, no excoriations or erythema Incision: incisions located in each quadrant and the umbilicus with steristrips covered by 2x2 and tegaderm. LUQ and LLQ gauze with scant strikethrough, dressings otherwise C/D/I Ext: warm, well-perfused, no edema bilaterally, SCDs at bedside. : Peña catheter in place draining yellow urine. Vaginal bleeding noted to be minimal on benja-pad Laboratory (Last 24 Hours): Lab Results Component Value Date WBC 6.4 10/25/2023 HGB 11.7 10/25/2023 HCT 35.6 (L) 10/25/2023 MCV 100.0 (H) 10/25/2023 PLATELET 127 (L) 10/25/2023 Peritoneal culture - 10/25: Many neuts, few gram positive cocci Assessment and Plan: Yumi Peraza is an 53 y.o. woman s/p above procedure. Patient is doing overall. Goals are to ambulate, remove peña, and advance diet. We will continue broad spectrum antibiotics until culture result. Watching closely for risk of ileus and intraabdominal abscess formation. We spent time reviewing procedure and recovery goals with the patient. Please see systems-basedassessment below. Pain Control: Adequate pain control with Tylenol and oxyocone, not using IV dilaudid -- ordered for Tylenol scheduled, oxycodone range order, and IV Dilaudid PRN. -- Avoid NSAIDS due to hx ulcer. Cardiac/Heme: #New Thrombocytopenia (Plts 190>127) New thrombocytopenia likely dilutional. Vitalsigns wnl. Currently normotensive and hemodynamically stable. Hgb 11.7 this AM. -- cbc PRN Pulmonary: Adequate o2 sats on RA -- encourage incentive spirometry. -- Chloraseptic spray added Gastrointestinal: #Hx Gastric Ulcer #Chronic Constipation #s/p appendectomy Risk for ileus due to purulent peritonitis. -- advance diet as tolerated, regular diet ordered. -- Zofran prn nausea. -- Discontinue benja colace per patient preference -- Page pharmacy [phone] for alteratives to Motilin -- Changed Miralax BID scheduled for constipation. -- Protonix daily Genitourinary: Adequate UOP, draining clear yellow urine. -- strict I/Os. -- discontinue peña catheter when ambulatory. Fluid/ Electrolytes: Tolerating PO intake. -- CMP PRN -- Discontinued LR at 100cc/hour. ID: #Purulent peritonitis Concern for sepsis in the Emergency Room. Not showing signs at this time.Source controlled. UA wnl. Received Ancef and Zosyn preoperatively. Afebrile. Leukocytosis resolvedWBC 12.2->6.4. -- Amp/Gent/Clinda -- Fu peritoneal culture and narrow antibiotics as indicated Endocrine: none Psychiatry: #Anxiety Not on medications Neuro: #Hx Migraine Gynecology: #Vaginal Cuff Dehiscence #Pelvic Floor Dysfunction #Vaginal Atrophy #Vasomotor Symptomss/p above procedure -- Holding all home medications -- Postoperative follow-up to be arranged outpatient. Skin: #Pruritus Located diffusely on abdomen. No signs of dermatitis. -- Encouraged showering chlorhexadine off of abdomen -- Consider removing tegaderm if pruritus persists Prophylaxis: Received 5000u subq Heparin preoperatively. -- Ordered for Lovenox 40mg sq daily to begin POD#1 while inpatient. -- incentive spirometry. -- encourage ambulation. -- SCDs. Disposition: -- Continues to require inpatient hospitalization. -- Discharge planning - needs to know early in the day when she will be discharged so that both blanca and can come and slat pickler the extra personal vehicle here Code Status: Full Code This patient was discussed with attending Corporate Safety Director physician, Dr. Viera. Dea Beth DO, PGY-2 Obstetrics and Gynecology 10/25/23 I have seen and examined the patient, providing duffy components as outlined below. I have reviewed the resident???s above note; my evaluation of the patient is below: Yumi is currently POD#1 s/p diagnostic laparoscopy, abdominal washout, closure of vaginal cuff. She reports thatshe has been tolerating PO intake without any nausea. She has not yet passed flatus. Will continue with IV antibiotics. Will touch base with ID to see if she requires outpatient PO antibiotics. Will plan for inpatient until return of bowel function. Discussed plan with the patient and her who are both in agreement. Yue Lassiter MD * Robina Anderson MD - 10/24/2023 10:27 PM EST Gynecology Post Operative Progress Note ID: Yumi Peraza is an 53 y.o. woman who is post operative day #0 s/p diagnostic laparoscopy, bowel evaluation, and vaginal cuff revision for vaginal cuff dehiscence. PMH significant for vasomotor symptoms of menopause, vaginal atrophy, pelvic floor dysfunction, anxiety, chronic constipation, ho gastric ulcer, appendectomy, and migraine. Intraoperative Events: -Findings: Open vaginal cuff, edges with some fibrosis. At laparoscopy, purulent drainage in abdomen, pelvis. Per Dr. Correa, no bowel injury with running the bowel laparoscopically. Cuff with white changes around the cuff. Subjective: Yumi Peraza reports that is doing ok, starting to notice a bit more soreness at incision sites. She has only tried ice chips and a few bites of jello so far; currently having some nausea, no emesis. No flatus or BM yet. Has not yet been out of bed, endorses some dizziness. Her peña catheter remains in place. She has not yet ambulated. ROS: in addition to above, denies chest pain, shortness of breath, fever, chills, lightheadedness, dizziness, and leg pain. Objective: Last value Range last 24 hrs Temperature Temp: 37.2 ??C (98.9 ??F) Temp: [37.2 ??C (98.9 ??F)-37.8 ??C (100 ??F)] Heart Rate Heart Rate: (!) 108 Heart Rate: [87-108] Blood Pressure BP: 113/71 BP: (113-119)/(71-80) Respiratory Rate Resp: 19 Resp: [18-29] SpO2 SpO2: 97 % SpO2: [97 %-100 %] Art BP BP (Arterial Line): -- No intake/output data recorded. I/O this shift: In: 1000 [I.V.:1000] Out: - UOP: 108 mL/ hour over last 3 recorded hours Recorded net since admission: +1L Physical Exam Gen: NAD, sleeping and easily arousable. Cardio: RRR, no MRG Pulm: CTAB, no wheezes or crackles. Abd: normoactive bowel sounds, soft, non-distended, mildly tender to palpation. Incision: incisions located in each quadrant and the umbilicus with steristrips covered by 2x2 and tegaderm. LUQ and LLQ gauze with scant strikethrough, dressings otherwise C/D/I Ext: warm, well-perfused, no edema bilaterally, SCDs in place and running. : Peña catheter in place draining yellow urine. Vaginal bleeding noted to be minimal on benja-pad Laboratory (Last 24 Hours): Labs pending for am. Assessment and Plan: Yumi Peraza is an 53 y.o. woman s/p above procedure. Patient is doing overall well in the immediate postoperative period, some nausea, yet to attempt most post-operative milestones. Please see systems- based assessment below. Pain Control: Adequate pain control; ordered for Tylenol scheduled, oxycodone range order, and IV Dilaudid PRN. -- Avoid NSAIDS due to hx ulcer. -- transition to PO pain meds when able to take adequate PO Cardiac/Heme: Vital signs wnl. Currently normotensive and hemodynamically stable -- cbc pending for am. Pulmonary: Adequate o2 sats on RA -- encourage incentive spirometry. Gastrointestinal: #Hx Gastric Ulcer #Chronic Constipation #s/p appendectomy Some nausea, denies vomiting. Tolerating sips/chips. -- advance diet as tolerated, regular diet ordered. -- Zofran prn nausea. -- Pericolace BID and prn Miralax for constipation. -- Protonix daily Genitourinary: Adequate UOP, draining clear yellow urine. -- strict I/Os. -- discontinue peña catheter when ambulatory. Fluid/ Electrolytes: Tolerating PO intake. -- Lytes pending for AM. -- LR at 100cc/hour. -- discontinue intravenous fluid when taking adequate PO. ID: #Intraabbdominal purulence Concern for sepsis in the Emergency Room. Not showing signs at this time. Source controlled. UA wnl. Received Ancef and Zosyn preoperatively. Afebrile. -- Amp/Gent/Clinda -- Fu peritoneal culture and narrow antibiotics as indicated Endocrine: none Psychiatry: #Anxiety Not on medications Neuro: #Hx Migraine Gynecology: #Vaginal Cuff Dehiscence #Pelvic Floor Dysfunction #Vaginal Atrophy #Vasomotor Symptomss/p above procedure -- Holding all home medications -- Postoperative follow-up to be arranged outpatient. Prophylaxis: Received 5000u subq Heparin preoperatively. -- lovenox 40mg sq daily to begin POD#1 while inpatient. -- incentive spirometry. -- encourage ambulation. -- SCDs. Disposition: --Continues to require inpatient hospitalization. Code Status: Full Code Robina Anderson MD PGY4 Obstetrics and Gynecology 10/24/23 * Evangelina Gomez RN - 10/24/2023 7:13 PM EST 1900: patient received from operating room, alarms on and set appropriate for patient, vs's, patient shivering, bear hugger blanket placed, report given to primary nurse back from break. documented in this encounter H&P Notes * Dea Beth, - 10/24/2023 5:37 PM EST H&P HPI: Yumi Peraza is a 53 y.o. female with PMH of total hysterectomy with urethral sling placement in April 2023 who presents to the Emergency Department with acute onset abdominal pain. Patient reports she was in her normal state of health until yesterday. She reports she was going tothe bathroom and felt like she couldn't get any urine out. She strained until she suddenly felt a pop and then proceeded to begin urinating. However this was also accompanied by the onset of severe ab dominal/pelvic pain. She reports it feels similar to when she was initially recovering from her hysterectomy, it hurts to move or to sit down. She reports the pain as 8/10. She's tried managing the pain with naproxen, which she last took at ~0730 this morning with only mild relief. She denies any hematuria or dysuria. Additionally starting today she's begun noticing some greenish-yellow discharge. It happens spontaneously, no correlation with coughing or bearing down, just when she's standing making a cup of coffee, for example. She initially thought it was urine based on how it looked on thepad however she says it feels more like the feeling of being and having her water break. Sh e denies any subjective fever/chills, some nausea from the pain but no vomiting. No shortness of breath, no diarrhea. ROS as per HPI O: Vitals Last value Range last 24 hrs Temperature Temp: 37.2 ??C (98.9 ??F) Temp: [37.2 ??C (98.9 ??F)-37.8 ??C (100 ??F)] Heart Rate Heart Rate: (!) 108 Heart Rate: [87-108] Blood Pressure BP: 113/71 BP: (113-119)/(71-80) Respiratory Rate Resp: 19 Resp: [18-29] SpO2 SpO2: 97 % SpO2: [97 %-100 %] PE General: Well developed female. Skin: no rashes Cardiovascular: normal effort of breathing Abdomen: 3 laparoscopic scars scars; guarding, tenderness in all 4 quadrants Neuro: grossly intact Pelvic: External genitalia/vulva- normal, no lesions, hypertonic entroitus Vagina- copious purulent discharge, small bowel visualized in vagina Labs CBC Lab Results Component Value Date WBC 12.2 (H) 10/24/2023 Hemoglobin 15.8 (H) 10/24/2023 Hematocrit 44.7 10/24/2023 Platelets 191 10/24/2023 A/P: #Vaginal Cuff Dehisence - Laparoscopic vaginal cuff revision, A case - Gen surg consult - Ancef + Zosyn - Heparin This patient was seen and discussed with attending Corporate Safety Director physician. Dea Beth DO, PGY-2 Obstetrics and Gynecology 10/24/23 Associated attestation - Yue Lassiter MD - 10/25/2023 6:19 AM EST I have seen and examined the patient, providing duffy components as outlined below. I was present for her physical exam which showed bowel herniation into the vagina, unable to visualize cuff. Attempted to pack the bowel back with a wet sponge but unable to due to patient discomfort. Brought to OR emergently for diagnostic laparoscopy, closure of vaginal cuff. Please see op note for details. Yue Lassiter MD documented in this encounter ED Notes * Traun Hudson MD - 10/24/2023 1:17 PM EST ED Resident Note HPI: Yumi Peraza is a 53 y.o. female with PMH of total hysterectomy with urethral sling placement in April 2023 who presents to the Emergency Department with acute onset abdominal pain. Patient reports she was in her normal state of health until yesterday. She reports she was going tothe bathroom and felt like she couldn't get any urine out. She strained until she suddenly felt a pop and then proceeded to begin urinating. However this was also accompanied by the onset of severe ab dominal/pelvic pain. She reports it feels similar to when she was initially recovering from her hysterectomy, it hurts to move or to sit down. She reports the pain as 8/10. She's tried managing the pain with naproxen, which she last took at ~0730 this morning with only mild relief. She denies any hematuria or dysuria. Additionally starting today she's begun noticing some greenish-yellow discharge. It happens spontaneously, no correlation with coughing or bearing down, just when she's standing making a cup of coffee, for example. She initially thought it was urine based on how it looked on thepad however she says it feels more like the feeling of being and having her water break. She denies any subjective fever/chills, some nausea from the pain but no vomiting. No shortness of breath, no diarrhea. ROS as per HPI Vitals: ED Triage Vitals [10/24/23 1213] BP: 113/78 Heart Rate: (!) 104 Resp: 20 Temp: 37.8 ??C (100 ??F) Temp src: Tympanic SpO2: 100 % O2 Device: O2 Flow Rate (L/min): n/a Physical Exam Constitutional: Appearance: She is not ill-appearing. HENT: Head: Normocephalic and atraumatic. Eyes: Extraocular Movements: Extraocular movements intact. Conjunctiva/sclera: Conjunctivae normal. Cardiovascular: Rate and Rhythm: Regular rhythm. Tachycardia present. Pulmonary: Effort: Pulmonary effort is normal. Abdominal: General: Abdomen is flat. Tenderness: There is abdominal tenderness. There is guarding. Comments: Diffusely tender, voluntary guarding, no palpable masses Genitourinary: General: Normal vulva. Vagina: No vaginal discharge. Skin: General: Skin is warm and dry. Neurological: General: No focal deficit present. Mental Status: She is alert and oriented to person, place, and time. ED Course: I have reviewed labs and imaging, images and available reports, and they are significant for: ED Course as of 10/24/23 1615 SunOct 24, 2023 1318 Patient diffusely tender on abdominal exam, borderline febrile and tachycardic, reports takinga naproxen this morning. External vulvar exam normal, no erythema, swelling, or discharge. Deferredspeculum exam until after speaking with MEMBERSHIP MANAGER. MEMBERSHIP MANAGER recommended performing speculum exam and obtainingCT A/P 1320 Additionally giving sepsis bundle with IV fluids, blood cultures, lactate, Zosyn, and tylenol for pain. 1445 Pelvic exam performed, vaginal canal filled with green discharge and cervical cuff hyperemic and inflamed. Awaiting CT A/P 1612 Pelvic exam performed again by MEMBERSHIP MANAGER resident, what was previously thought to be hyperemic vaginal cuff was actually loop of bowel protruding into vagina. Patient to be taken urgently to OR. CT scan cancelled. No orders to display IV Fluid bolus for Sepsis; Patient BMI is 19.4 kg/m2, (< or = 30 kg/m2) so dosing based on ACTUAL body weight. Current Body Weight of 48.08 kg x 30 mL/kg/dose = 1,442 mL, rounded to 1,500 mL for target resuscitation volume. IV Fluid Orders Start Dose/Rate Route Frequency Stop 10/24/23 1540 lactated Ringers 1,000 mL IV bolus Intravenous ONCE 10/25/23 0339 10/24/23 1329 lactated ringers infusion (BMI & Austin BW Available for Patient) See Hyperspace for full Linked Orders Report. 500 mL over 15 Minutes Intravenous ONCE 10/24/23 1412 10/24/23 1313 lactated ringers infusion (BMI & Austin BW Available for Patient) See Hyperspace for full Linked Orders Report. 1,000 mL over 15 Minutes Intravenous ONCE 10/24/23 1357 Procedures Assessment and Plan: 53 y.o. female with with PMH of total hysterectomy with urethral sling placement in April 2023 whopresents to the Emergency Department with acute onset abdominal pain. Based on second pelvic exam performed by MEMBERSHIP MANAGER resident, patient with likely dehisced vaginal cuff with herniation of bowel into the vaginal canal. Zosyn already given, additional 1L LR ordered, type and screen ordered. Patient to be urgently taken to the OR for repair. The visit findings, diagnosis, and care plan were discussed with the patient. Tarun Hudson MD Resident 10/24/23 1615 Associated attestation - Yvonne Oquendo MD - 10/24/2023 8:26 PM EST ED ATTENDING ATTESTATION The patient was seen in conjunction with the resident physician. I have independently performed thekey portions of the history and physical exam. I have personally reviewed nursing notes, vital signs, and diagnostic studies including labs, imaging studies and EKGs. I have discussed the details of the case with the resident and agree with the assessment and plan as described in the resident's note, unless stated otherwise in my separate note. Did this case involve critical care? Yes CRITICAL CARE DOCUMENTATION: Is there a high potential of sudden, clinically significant, or life threatening deterioration? Yes Are there life and/or organ supporting interventions that require frequent personal assessment and manipulation or support to treat/prevent vital organ failure/deterioration? yes I personally performed 30 minutes of aggregate critical care time exclusive of procedures and teaching during this emergency department visit. This includes time spent during direct patient evaluation and reassessment, interpreting diagnostic tests, directing life and/or organ supporting interventions, and documentation. * Yvonne Oquendo MD - 10/24/2023 12:51 PM EST Brief Attending Note I cared for the patient with the resident physician. Please see Dr. Hudson's note, associated withthe encounter, for more details. HPI: Yumi Peraza is a 53 y.o. who presents to the ED perineal greenish - yellow discharge and perineal pain starting yesterday. Had some urinary hesitancy and felt a pop when she went to urinate yesterday. Feels like the pain she had after her hysterectomy. Coughing does not increase the pain. Hx frequent UTIs but none since her hysterectomy. She declines any pain medication than Tylenol. PMH AUB and fibroids and cervical pain now s/p TLH/BS and urethral sling on 04/25/23 ED Course: Temp 100, tachycardic Uncomfortable appearing, but not toxic. Lungs CTA Pain across entire abd with palpation - voluntary guarding. Concerning for surgical abdomen External perineal exam - no swelling or discharge. Pelvic exam - vagina full of green fluid. Hyperemic smooth tissue at top of vaginal vault, attempted to suction fluid from vagina to see source of fluid, but patient didn't tolerate further exam - however gentle. Antibiotics, IV fluids ordered. WBC 12.2 CT abd/pelvis - ordered but canceled per MEMBERSHIP MANAGER after they saw the patient. EKG NSR. No ST elevation/depression. QTc 426. Possible right atrial enlargment. Socket Welder Helper consulted early on in visit. They saw the patient and plan OR for wound dehiscence into vagina. Assessment/plan: Late surgical complication with wound dehiscence. To OR Yvonne Oquendo MD 10/24/232025 documented in this encounter Miscellaneous Notes * Plan of Care - Marnie Torrez RN - 10/26/2023 11:29 AM EST OUTCOME EVALUATION NOTE: OUTCOME SUMMARY: Patient a/ox4, VSS on RA. S/p diagnostic laparoscopy w/ purulent peritonitis, Vaginal cuff closure,small bowel evaluation. Plan for discharge today. PLAN MOVING FORWARD: Print and review AVS D/C to home NDIVIDUALIZED FALL PREVENTION INTERVENTIONS: Patient-specific fall risk factors per assessment: [current deficits]: pain, IV Assistance [level of assistance required for transfers and ambulation]: independent in room Supervision [direct monitoring required during toileting and ADLs]: none at this time Surveillance [continuous indirect monitoring]: masimo, call light within reach Patient-specific fall prevention interventions for sensory deficits provided, if applicable: [X] N/A CPG GOAL OUTCOME EVALUATION: Reviewed AVS with patient and SO. Patient aware of new medications. New medications sent to pharmacy of choice. Reviewed activity and showering restrictions. Declined WC, walked off unit with family. Problem: Adult Inpatient Plan of Care Goal: Plan of Care Review Outcome: Outcome (s) achieved Goal: Patient-Specific Goal (Individualized) Outcome: Outcome (s) achieved Goal: Absence of Hospital-Acquired Illness or Injury Outcome: Outcome (s) achieved Goal: Optimal Comfort and Wellbeing Outcome: Outcome (s) achieved Goal: Readiness for Transition of Care Outcome: Outcome (s) achieved Problem: Bleeding (Surgery Nonspecified) Goal: Absence of Bleeding Outcome: Outcome (s) achieved Problem: Bowel Motility Impaired (Surgery Nonspecified) Goal: Effective Bowel Elimination Outcome: Outcome (s) achieved Problem: Infection (Surgery Nonspecified) Goal: Absence of Infection Signs and Symptoms Outcome: Outcome (s) achieved Problem: Ongoing Anesthesia Effects (Surgery Nonspecified) Goal: Anesthesia/Sedation Recovery Outcome: Outcome (s) achieved Problem: Pain (Surgery Nonspecified) Goal: Acceptable Pain Control Outcome: Outcome (s) achieved Problem: Postoperative Nausea and Vomiting (Surgery Nonspecified) Goal: Nausea and Vomiting Relief Outcome: Outcome (s) achieved Problem: Postoperative Urinary Retention (Surgery Nonspecified) Goal: Effective Urinary Elimination Outcome: Outcome (s) achieved * Initial Assessments - Madelaine Rey RN - 10/26/2023 10:52 AM EST Office of Care Management Initial Assessment/Discharge Note Madelaine Rey RN reviewed record and discussed patient with Care Team. Source of Information: Team, bedside nurse, medical record, and Chart Review Introduced self/reviewed role; services accepted. Admitted From: Home Reason for Hospitalization: s/p diagnostic laparoscopy, bowel evaluation, and vaginal cuff revisionfor vaginal cuff dehiscence Past medical History: Past Medical History: Diagnosis Date Abnormal uterine bleeding (AUB) Adjustment disorder 12/12/2021 Anxiety Chronic constipation 12/19/2020 Dyspareunia due to medical condition in female Fibroid uterus Functional dyspepsia 12/19/2020 Gastroparesis 05/21/2023 H/O gastric ulcer Irritable bowel syndrome with constipation 01/10/2022 Migraine w & wo aura Hospitalizations Within the Past 30 Days: no previous admission in last 30 days Current Decision-Making Capacity: Self If AD's have not been completed the following surrogate would be surrogate decision maker per [place] surrogate decision making law. (Only good for 180 days) Any patient receiving care in [place] must abide by [place] law. The hierarchy for surrogate decision making is: (a) Patient???s spouse or civil union partner unless there is a divorce proceeding, separation agreement, or restraining order limiting that person???s relationship with the patient. (b) Any adult son or daughter of the patient. (c) Either parent of the patient. (d) Any adult brother or sister of the patient. (e) Any adult grandchild of the patient. (f) Any grandparent of the patient. (g) Any adult aunt, uncle, niece, or nephew of the patient. (h) A close friend of the patient. (i) The agent with financial power of business attorney or a conservator appointed in accordance with RSA 464-A. (j) The guardian of the patient???s estate. Advance Care Planning: Attempt Cardiopulmonary Resuscitation - Inpatient <no information> -Advanced Directive: Other (No AD on file.) Current Functional Ability: Assistive Person Functional Status Prior to Admission: Independent Home Address listed [address]: [address] [place] [id number] Social & Family Supports: All names listed below confirmed with patient as current and correct Extended Emergency Contact Information Primary Emergency Contact: norris buck Mobile Relation: Spouse Substance Use/Abuse listed: Social History Tobacco Use Smoking Status Former Types: Cigarettes Smokeless Tobacco Never 0 No problems reported 1-2 Low level 3-5 Moderate level 6-8 Substantial level 9- 10 Severe level 0 to 7 points: Low risk 8 to 15 points: Medium risk 16 to 19 points: High risk 20 to 40 points: Addiction likely Other Pertinent/Service Specific Information: none Health/Prescription Coverage: Primary Insurance: [place] Payor: [place] / Plan: [place] PRIMARY CARE PLUS / Product Type: *No Product type* / Secondary Insurance: N/A ; Prescription Coverage: Preferred Pharmacy: [facility] [address] [address] Primary Care Provider listed: Dea Kc, LICENSED FUNERAL DIRECTOR AND EMBALMER [phone] Potential Needs for Transition of Care: none Agency Referrals: Not Applicable Transportation: no concerns Transportation Anticipated: private Concerns to be Addressed: no discharge needs identified Assessment: Patient is admitted to Benign Oncology service for s/p diagnostic laparoscopy, bowel evaluation, and vaginal cuff revision for vaginal cuff dehiscence Plan: Discharge home without services. A member of the Care Management team will continue to monitor progress, follow for continuity of care and assist with transition of care planning. PB Roa, solar engineer of Care Management Pager [phone] * Plan of Care - Ángel Tidwell RN - 10/25/2023 10:00 PM EST OUTCOME EVALUATION NOTE: OUTCOME SUMMARY: Pt A&Ox4, VSS on RA, Afebrile, no complaints of SOB. Pt has mild abd pain to lap sites x5, pt has PRN tylenol and oxycodone available. Pt getting IV Abx, and able to ambulate to bathroom, and void spontaneously after peña catheter removal. Pt no BM overnight. Pt resting in between nursing care. PLAN MOVING FORWARD: Encourage ambulation Monitor BS/flatus/BM's Encourage IS Random Gentamicin level due 10/25 @ 0800 INDIVIDUALIZED FALL PREVENTION INTERVENTIONS: Patient-specific fall risk factors per assessment: [current deficits]: s/p surgery, pain, IV's, peña, & weakness Assistance [level of assistance required for transfers and ambulation]: 1 Assist Supervision [direct monitoring required during toileting and ADLs]: 1 Assist Surveillance [continuous indirect monitoring]: Masimo & Hourly Rounding Patient-specific fall prevention interventions for sensory deficits provided, if applicable: [X] N/A * Plan of Care - Marnie Torrez RN - 10/25/2023 7:54 PM EST SUMMARY: Patient a/ox4, VSS on RA. S/p diagnostic laparoscopy w/ purulent peritonitis, Vaginal cuff closure,small bowel evaluation. Peña removed this shift, patient voiding without difficulty. Small amount of vaginal bleeding this shift, noticed while standing. Hypoactive BS noted, 5 lap sites on abdomen dry and intact w/tegaderm & gauze. Some abdominal distention noted in afternoon, MD notified of patient request for LINING BRUSHER medications for GI issues. MD aware stating in contact with pharmacy for nonformulary medications. Good intake of PO fluids, no nausea. Ambulating independently in room. Pain managed with PO medications. PLAN MOVING FORWARD: Encourage ambulation Monitor BS/flatus/BM's Monitor vaginal bleeding Pain management INDIVIDUALIZED FALL PREVENTION INTERVENTIONS: Patient-specific fall risk factors per assessment: [current deficits]: pain, IV Assistance [level of assistance required for transfers and ambulation]: independent in room Supervision [direct monitoring required during toileting and ADLs]: none at this time Surveillance [continuous indirect monitoring]: masimo, call light within reach Patient-specific fall prevention interventions for sensory deficits provided, if applicable: [X] N/A * Plan of Care - Sophia Gregorio RN - 10/25/2023 4:25 AM EST OUTCOME EVALUATION NOTE: OUTCOME SUMMARY: Pt arrived from PACU @ 2150. Patient feeling very hot & w/complaints of nausea upon arrival. Prn IV Zofran given w/effect. Temperature turned down in room, socks removed, and ice pack given w/relief of feeling overheated. Given saltines and some jello to help settle stomach which pt stated helped. Cont's on LR @ 100 ml/hr per orders. Afebrile this shift, cont's on IV Ampicillin, Clindamycin, & Gentamicin. Random Gentamicin level due 10/25 @ 0800, oncoming RN aware. Peña in place, draining clear yellow urine. Peña care provided. @ bedside till 2300, will return @ 0600. Patientw/low back pain/abdominal pain 02/10, requesting Oxycodone. Prn Oxycodone given x 2 w/sched Tylenol w/good effect. Hypoactive BS noted, LBM 10/24 prior to procedure. 5 lap sites on abdomen dry and intact w/tegaderm & gauze. Small drainage noted to 1 lap site but unchanged from arrival to unit. Ptencouraged to take slow deep breaths and instructed her on the incentive spirometer (IS). SCD's in place. PLAN MOVING FORWARD: Encourage ambulation D/c peña once moving Monitor BS/flatus/BM's Encourage IS Random Gentamicin level due 10/25 @ 0800 INDIVIDUALIZED FALL PREVENTION INTERVENTIONS: Patient-specific fall risk factors per assessment: [current deficits]: s/p surgery, pain, IV's, peña, & weakness Assistance [level of assistance required for transfers and ambulation]: 1 Assist Supervision [direct monitoring required during toileting and ADLs]: 1 Assist Surveillance [continuous indirect monitoring]: Masimo & Hourly Rounding Patient-specific fall prevention interventions for sensory deficits provided, if applicable: [X] N/A * Op Note - Yue Lassiter MD - 10/24/2023 7:12 PM EST Operative Note Patient Name: Yumi Peraza : [id number] MR#: [id number] Case Date: 10/24/2023 Surgeon: Surgeon(s) and Role: Panel 1: * Yue Lassiter MD - Primary * Dea Beth DO - Resident - Assisting Panel 2: * Sharifa Correa MD - Primary * Linda Velez MD - Resident - Assisting Panel 3: * Misha Campos MD - Primary * Linda Ramesh MD - Fellow - Assisting Preoperative diagnosis: vaginal cuff dehiscence with bowel evisceration Postoperative diagnosis: vaginal cuff dehiscence with bowel evisceration Procedure: Diagnostic laparoscopy, abdominal washout Anesthesia: General Findings: Upon initial vaginal exam, vaginal cuff unable to be visualized due to large amount of small bowel in the vagina. Laparoscopy performed which showed small bowel easily reducible. Vaginal cuff appeared necrotic. Purulent peritonitis present without any obvious abscess pockets. Bowel run bygeneral surgery without any injury noted. Abdomen copiously irrigated at end of procedure. Complications: None Estimated Blood Loss: 5 mL* No values recorded between 10/24/2023 4:39 PM and 10/24/2023 6:47 PM * Specimens removed during surgery: Order Name Source Comment Collection Info Order Time SPECIMEN TO PATHOLOGY VAGINAL CUFF INCISION vaginal cuff tear VAGINAL CUFF INCISION biopsy No 10/24/2023 5:59 PM Time specimen removed from patient: 5:57 PM Number of tissue samples (in container) 2 Biospecimen to store? No Fluids: Intraprocedure Crystalloid Total None PRBCs: none (See Anesthesia Record/Report for Other Blood Products) Urine Output: 550 mL Drains: Peña to gravity Disposition: awakened from anesthesia, extubated and taken to the recovery room in a stable condition, having suffered no apparent untoward event. Condition: doing well without problems (Please see the Surgical Encounter Summary for any Implant and Specimen details pertinent to this patient.) Surgical Infection Prevention Bundle Used? N/a HPI/Surgical Indications: Yumi Peraza is a 53 y.o. female with vaginal cuff dehiscence. We discussed risks and benefits of laparoscopy with risks including but not limited to bleeding,infection, damage to surrounding tissues (bladder, bowel, ureters, blood vessels, nerves) and possible conversion to open. She stated understanding of these risks and all her questions were answered. Procedure Description: Classified as A Case. The patient was taken by the MEMBERSHIP MANAGER resident to the operating room with IV fluids running where general anesthesia was obtained without difficulty. She was placed in the dorsal lithotomy position with legs in Yellowfin stirrups in a neurologically neutral position. SCD's were on and operating. Surgical time out was performed with all parties in agreement.She was prepped and draped in the usual sterile fashion. Peña catheter was introduced into the bladder. A side valve speculum was used and the intra-abdominal contents visualized. There was no apparent injury or duskyness to the bowel. The speculum was removed and moist laps were packed into the va teofilo. A 5 mm incision was made inferior to the umbilicus with a scalpel after infiltration with local anesthesia. The Veress needle was inserted and intra- abdominal placement was confirmed with the saline drop test and a low entering pressure. The abdomen was insufflated with CO2 to a pressure of 15 mmHg. A 5 mm OptiView trocar was then inserted under direct vision with the laparoscope. The abdomen wasexplored with findings as above. 5 mm right lower quadrant and left lower quadrant port sites were created in a similar fashion. The patient was placed in Trendelenburg position.The suction-irrigatorwas used to obtain a sample of the intra-abdominal purulent fluid. The MEMBERSHIP MANAGER team transferred care to the General Surgery team. General Surgery performed their evaluation of the bowel. Urogynecology performed vaginal cuff closure. The MEMBERSHIP MANAGER team remained in the OR and observed the General Surgery and Urogynecology procedures. The MEMBERSHIP MANAGER team resumed care. The vaginal cuff was re-examined and was noted to be intact without any necrotic tissue. The abdomen was irrigated with ~6L NS using the suction product safety compliance leader. The abdomen was desufflated and all instruments were removed. The port incisions were closed with 4-0 Monocryl in a subcuticular fashion. Steristrips with 2x2 and tegaderm were applied to all port sites. The Peña catheter was remained in place. The patient wasawakened from anesthesia. She tolerated the procedure well with no apparent complications. She returned to the recovery room in stable condition. Dr. Viera was present for the entire procedure with no conflicting clinical responsibilities. Dea Beth DO, PGY-2 Obstetrics and Gynecology 10/24/23 I was the attending physician supervising the resident in the above care and I was present with theresident for the entire procedure. Yue Lassiter MD * Brief Op Note - Yue Lassiter MD - 10/24/2023 6:50 PM EST Brief Operative Note Patient Name: Yumi Peraza : [id number] MR#: [id number] Case Date: 10/24/2023 Surgeon: Surgeon(s) and Role: Panel 1: * Yue Lassiter MD - Primary * Dea Beth DO - Resident - Assisting Panel 2: * Sharifa Correa MD - Primary * Linda Velez MD - Resident - Assisting Panel 3: * Misha Campos MD - Primary * Linda Ramesh MD - Fellow - Assisting Preoperative diagnosis: vaginal cuff dehiscence with bowel evisceration Postoperative diagnosis: vaginal cuff dehiscence with bowel evisceration Procedure: Diagnostic laparoscopy, abdominal washout Anesthesia: General Findings: Upon initial vaginal exam, vaginal cuff unable to be visualized due to large amount of small bowel in the vagina. Laparoscopy performed which showed small bowel easily reducible. Vaginal cuff appeared necrotic. Purulent peritonitis present without any obvious abscess pockets. Bowel run bygeneral surgery without any injury noted. Abdomen copiously irrigated at end of procedure. Complications: None Estimated Blood Loss: 5 mL* No values recorded between 10/24/2023 4:39 PM and 10/24/2023 6:47 PM * Specimens removed during surgery: Order Name Source Comment Collection Info Order Time SPECIMEN TO PATHOLOGY VAGINAL CUFF INCISION vaginal cuff tear VAGINAL CUFF INCISION biopsy No 10/24/2023 5:59 PM Time specimen removed from patient: 5:57 PM Number of tissue samples (in container) 2 Biospecimen to store? No Fluids: Intraprocedure Crystalloid Total Intake lactated ringers 600.00 mL sodium chloride 0.9% 700.00 mL Total Intake 1300 mL Output Urine Output 550 mL Blood Loss 5 mL Total Output 555 mL Net Net Volume 745 mL PRBCs: none (See Anesthesia Record/Report for Other Blood Products) Urine Output: 550 mL Drains: Peña to gravity Disposition: awakened from anesthesia, extubated and taken to the recovery room in a stable condition, having suffered no apparent untoward event. Condition: doing well without problems (Please see the Surgical Encounter Summary for any Implant and Specimen details pertinent to this patient.) Surgical Infection Prevention Bundle Used? N/a * Brief Op Note - Misha Campos MD - 10/24/2023 6:39 PM EST Brief Operative Note Patient Name: Yumi Peraza : [id number] MR#: [id number] Case Date: 10/24/2023 Surgeon: Surgeon(s) and Role: Panel 1: * Yue Lassiter MD - Primary * Dea Beth DO - Resident - Assisting Panel 2: * Sharifa Correa MD - Primary * Linda Velez MD - Resident - Assisting Panel 3: * Mihsa Campos MD - Primary * Linda Ramesh MD - Fellow - Assisting Preoperative diagnosis: Vaginal cuff dehiscence Postoperative diagnosis: Same, repaired Procedure(s) (LRB): @EXPLORATORY LAPAROTOMY, WITH/WITHOUT BIOPSY(S) (WRVU 12.54) (N/A) LAPAROSCOPY, DIAGNOSTIC, ABDOMEN (WRVU 5.14) (N/A) COLPORRHAPHY, NON OBSTETRICAL SUTURE OF VAGINAL INJURY (WRVU 4.42) (N/A) (Diagnostic laparoscopy, exam under anesthesia, Dr. Llamas; Evaluation for possible bowel injury, Dr. Correa: Vaginal repair of cuff dehiscence, Dr. Campos) Anesthesia: General endotracheal tube Findings: Open vaginal cuff, edges with some fibrosis. At laparoscopy, purulent drainage in abdomen, pelvis. Per Dr. Correa, no bowel injury with running the bowel laparoscopically. Cuff with white changes around the cuff. Complications: None Intake: Intraprocedure Crystalloid Total Intake lactated ringers 600.00 mL sodium chloride 0.9% 500.00 mL Total Intake 1100 mL Output Urine Output 550 mL Blood Loss 5 mL Total Output 555 mL Net Net Volume 545 mL Transfusion No data found in the last 1 encounters. Output: Estimated Blood Loss: 5 mL Urine Output:: 550 mL Other Output: (no other output recorded) Drains: Peña catheter. Specimens removed during surgery: Order Name Source Comment Collection Info Order Time SPECIMEN TO PATHOLOGY VAGINAL CUFF INCISION vaginal cuff tear VAGINAL CUFF INCISION biopsy No 10/24/2023 5:59 PM Time specimen removed from patient: 5:57 PM Number of tissue samples (in container) 2 Biospecimen to store? No Disposition: Still intubated when I left the OR, Dr. Lassiter irrigating abdomen. Condition: Still intubated. Attestation: Case Date: 10/24/2023 I was present and I participated during the critical and duffy portions of this procedure; and, I or Dr. Lassiter was immediately available during the remainder of the procedure. I interpret the critical and duffy portions of this prcedure to have been Vaginal cuff closure (dehiscence repair, vaginalapproach). (Please see the Surgical Encounter Summary for any Implant and Specimen details pertinent to this patient.) Surgical Infection Prevention Bundle Used? N/A * Brief Op Note - Sharifa Correa MD - 10/24/2023 6:34 PM EST Brief Operative Note Patient Name: Yumi Peraza : [id number] MR#: [id number] Case Date: 10/24/2023 Surgeon: Surgeon(s) and Role: Panel 2: * Sharifa Correa MD - Primary * Linda Velez MD - Resident - Assisting Preoperative diagnosis: vaginal cuff dehiscence Postoperative diagnosis: same Procedure(s) (LRB): LAPAROSCOPY, DIAGNOSTIC, ABDOMEN (WRVU 5.14) (N/A) Anesthesia: General Findings: -intraoperative consultation for evaluation of small bowel after dehiscence with exposed small bowel -Small bowel run laparoscopically from terminal ileum to ligament of treitz with no apparent injurynoted. Small areas where bowel looked to have been in contact with the broken down cuff area. No ischemia or necrosis. No injuries appreciated within limitations of laparoscopic evaluation. -No apparent pathology of visualized large bowel, again within limitations of laparoscopic approach -diffuse purulence in the abdomen with purulent peritonitis -recommended full washout of the abdomen given gross purulence throughout, recommended ensuring small bowel returns to normal anatomic position after completion of gynecology portion of the case. -case returned to gynecology team Complications: None for this portion Estimated Blood Loss: 1cc for this portion. Case ongoing. Specimens removed during surgery: None Fluids: Case ongoing PRBCs: none (See Anesthesia Record/Report for Other Blood Products) Urine Output: 550 mL Drains: None. Case ongoing. Disposition: case ongoing Condition: case ongoing (Please see the Surgical Encounter Summary for any Implant and Specimen details pertinent to this patient.) Surgical Infection Prevention Bundle Used? N/A * Op Note - Misha Campos MD - 10/24/2023 4:39 PM EST [facility] Urogynecology Operative Note Patient Name: Yumi Peraza : [id number] MR#: [id number] Case Date: 10/24/2023 Preoperative diagnosis: Vaginal cuff dehiscence Postoperative diagnosis: Same, repaired Procedure(s) (LRB): @EXPLORATORY LAPAROTOMY, WITH/WITHOUT BIOPSY(S) (WRVU 12.54) (N/A) LAPAROSCOPY, DIAGNOSTIC, ABDOMEN (WRVU 5.14) (N/A) COLPORRHAPHY, NON OBSTETRICAL SUTURE OF VAGINAL INJURY (WRVU 4.42) (N/A) (Diagnostic laparoscopy, exam under anesthesia, Dr. Llamas; Evaluation for possible bowel injury, Dr. Correa: Vaginal repair of cuff dehiscence, Dr. Campos) Anesthesia: General endotracheal tube Findings: Open vaginal cuff, edges with some fibrosis. At laparoscopy, purulent drainage in abdomen, pelvis. Per Dr. Correa, no bowel injury with running the bowel laparoscopically. Cuff with white changes around the cuff. Complications: None Intake: Intraprocedure Crystalloid Total Intake lactated ringers 600.00 mL sodium chloride 0.9% 500.00 mL Total Intake 1100 mL Output Urine Output 550 mL Blood Loss 5 mL Total Output 555 mL Net Net Volume 545 mL Transfusion No data found in the last 1 encounters. Output: Estimated Blood Loss: 5 mL Urine Output:: 550 mL Other Output: (no other output recorded) Drains: Peña catheter. Specimens removed during surgery: Order Name Source Comment Collection Info Order Time SPECIMEN TO PATHOLOGY VAGINAL CUFF INCISION vaginal cuff tear VAGINAL CUFF INCISION biopsy No 10/24/2023 5:59 PM Time specimen removed from patient: 5:57 PM Number of tissue samples (in container) 2 Biospecimen to store? No Disposition: Still intubated when I left the OR, Dr. Lassiter irrigating abdomen. Condition: Still intubated. Procedure in Detail: The urogynecology team was called into OR#16 to assist in the closure of a cuff dehiscence. Upon arrive to the room, the patient was in dorsal lithotomy position with laparoscopic port and survey taking place. The insufflation was released and the leg were raised for a vaginal exam. A sponge stick was removed from the vagina and the vaginal cuff was visualized. The tissue appeared healthy and wasnot denuded. The vaginal cuff was grasped with several Allis clamps and the edges were sharply dissected until healthy tissue was noted (approximately 05. Cm circumferentially). The bladder was dissected from the vaginal cuff prior to dissecting the anterior portion without difficulty. The vaginal cuff was then closed in running fashion with 0-PDS suture with care to incorporate the entire thickness of the vaginal epithelium. The vaginal cuff was noted to be hemostatic and the primary team resumed laparoscopy for abdominal washout. Please see primary operative report for full details. Dr. Campos was present and scrubbed for the entire urogynecology portion of the procedure. Linda Ramesh MD PGY-5 Female Pelvic Medicine and Reconstructive Surgery Fellow * Op Note - Sharifa Correa MD - 10/24/2023 4:39 PM EST [facility] Operative Note Patient Name: Yumi Peraza : [id number] MR#: [id number] Case Date: 10/24/2023 Surgeon: Panel 2: * Sharifa Correa MD - Primary * Linda Velez MD - Resident - Assisting Preoperative diagnosis: vaginal dehiscence Postoperative diagnosis: vaginal dehiscence Procedure(s) (LRB): LAPAROSCOPY, DIAGNOSTIC, ABDOMEN (WRVU 5.14) (N/A) Findings: -intraoperative consultation for evaluation of small bowel after dehiscence with exposed small bowel -Small bowel run laparoscopically from terminal ileum to ligament of treitz with no apparent injurynoted. Small areas where bowel looked to have been in contact with the broken down cuff area. No ischemia or necrosis. No injuries appreciated within limitations of laparoscopic evaluation. -No apparent pathology of visualized large bowel, again within limitations of laparoscopic approach -diffuse purulence in the abdomen with purulent peritonitis -recommended full washout of the abdomen given gross purulence throughout, recommended ensuring small bowel returns to normal anatomic position after completion of gynecology portion of the case. -case returned to gynecology team Anesthesia: General Estimated Blood Loss: 5 mL Specimens removed during surgery: None Drains: None for this portion Surgical Closure: case handed back to MEMBERSHIP MANAGER team Disposition: case handed back to MEMBERSHIP MANAGER team Condition: case handed back to MEMBERSHIP MANAGER team (Please see the Surgical Encounter Summary for any Implant and Specimen details pertinent to this patient.) HPI/Surgical Indications: I was consulted intraoperatively for this patient who presented with a vaginal cuff dehiscence withbowel evisceration. I did not have the opportunity to meet the patient preoperatively nor participate in the consent discussion. Procedure Description: When I entered the room the patient already had three laparoscopic 5mm ports in place. I placed twoadditional ports in the right and left upper quadrants under direct vision. I discussed the case with the pasta maker team who were not planning laparotomy for any portion of their case. I discussed the limitations of bowel inspection via laparoscopic approach with the team and then proceeded. The bowel was run from the terminal ileum all the way to the ligament of treitz. The bowel was grasped gently with two graspers with care taken not to injure the bowel during the course of the procedure. There was a long segment area of the bowel that appeared injected but was actively peristalsing and otherwise healthy in appearance. There were multiple small areas that looked to have been in direct contact with the site of dehiscence based upon discoloration that was similar to that seen around the vaginal cuff in the pelvis however the bowel itself appeared normal and was peristalsing. The visualized large bowel also appeared grossly normal. There was diffuse purulent peritonitis and pus throughout the abdominal cavity including between bowel loops. I recommended to the MEMBERSHIP MANAGER team that she would needa thorough and complete washout given the extent of purulent contamination. There did not appear lisa any injuries to the bowel from our manipulation to inspect it. I then handed the case back to the MEMBERSHIP MANAGER team to further proceed. Surgical Infection Prevention Bundle Used? N/A Attestation: Case Date: 10/24/2023 I was present and I participated during the entire procedure (does not need to include opening and closing). For clarification I was present for the entirety of the above mentioned general surgery portion of the procedure. I was not present for the initial MEMBERSHIP MANAGER entry into the abdomen nor the remainder of the MEMBERSHIP MANAGER procedure. Sharifa Correa MD 10/25/2023 documented in this encounter Plan of Treatment Upcoming Encounters Date Type Department Care Team (Late st Contact Info) Description 07/17/2024 1:00 PM EST Office Visit Obstetrics [place] [address] Roma Lara MD [facility] OBSTETRICS [place] [address] 10/27/2024 11:00 AM EST TH Visit (TeleHealth) [place] [id number] Kim Gonzalez MD [facility] DR [place] [address] documented as of this encounter Procedures Procedure Name Priority Date/Time Associated Diagnosis Comments HEMOGRAM Routine 10/26/2023 4:21 AM EST DIFFERENTIAL, AUTOMATED Routine 10/26/2023 4:21 AM EST CBC (WITH DIFF) Routine 10/26/2023 4:21 AM EST GENTAMICIN LEVEL, RANDOM Timed 10/25/2023 7:26 AM EST ABORH RECHECK STATUS STAT 10/25/2023 4:44 AM EST HEMOGRAM Routine 10/25/2023 4:44 AM EST DIFFERENTIAL, AUTOMATED Routine 10/25/2023 4:44 AM EST CBC (WITH DIFF) Routine 10/25/2023 4:44 AM EST TYPE AND SCREEN ([facility]) STAT 10/25/2023 4:44 AM EST SURGICAL PATHOLOGY REPORT Routine 10/24/2023 5:59 PM EST SPECIMEN TO PATHOLOGY Routine 10/24/2023 5:59 PM EST HC GRAM STAIN FOR BACTERIA Routine 10/24/2023 5:08 PM EST ABSCESS/WOUND ASPIRATE CULTURE Routine 10/24/2023 5:08 PM EST BLOOD GAS ARTERIAL POC Routine 10/24/2023 4:22 PM EST Repair Of Vagina ([id number]) 10/24/2023 4:10 PM EST bowel Lap, Diagnostic Abdomen ([id number]) 10/24/2023 4:10 PM EST bowel Exploration Of Abdomen ([id number]) 10/24/2023 4:10 PM EST bowel L-LACTATE2 WHOLE BLOOD Routine 10/24/2023 1:50 PM EST BLOOD CULTURE STAT 10/24/2023 1:30 PM EST BLOOD CULTURE STAT 10/24/2023 1:30 PM EST URINALYSIS WITH REFLEX CULTURE STAT 10/24/2023 12:35 PM EST HEMOGRAM STAT 10/24/2023 12:32 PM EST DIFFERENTIAL, AUTOMATED STAT 10/24/2023 12:32 PM EST CBC (WITH DIFF) STAT 10/24/2023 12:32 PM EST LIPASE STAT 10/24/2023 12:32 PM EST HEPATIC FUNCTION PANEL STAT 10/24/2023 12:32 PM EST BASIC METABOLIC PANEL STAT 10/24/2023 12:32 PM EST EKG 12-LEAD STAT 10/24/2023 12:21 PM EST documented in this encounter Results * Differential, Automated (10/26/2023 4:21 AM EST) Neutrophil % 42.0 % [facility] Neutrophil Absolute 1.88 1.70 - 6.10 x10(3)/[facility] Lymph % 44.4 % [facility] Lymphocytes Abs 2.0 0.9 - 3.2 x10(3)/[facility] Monocyte % 9.4 % [facility] Monocyte Abs 0.4 0.3 - 0.9 x10(3)/[facility] Eos % 3.3 % [facility] Eosinophils Abs 0.2 0.0 - 0.4 x10(3)/[facility] Basophil % 0.7 % [facility] Baso Absolute 0.0 0.0 - 0.1 x10(3)/[facility] Immature Gran % 0.20 % [facility] Comment: Immature granulocytes(IG's)percentage and absolute count will include metamyelocytes, myelocytes, and promyelocytes. Blood smears from CBCs yielding IG's will be scanned manually for concordance. If this scan disagrees with the automated IG or if promyelocytes are noted, a manual differential will be performed. Immature Gran Absolute 0.01 0.00 - 0.04 x10(3)/mcL [facility] Blood 10/26/2023 4:21 AM EST 10/26/2023 4:39 AM EST Narrative Resulting Agency Comment Spec In Lab Silva Reaves MD HEMATOLOGY ORDERABLE S [facility] [place] [address] * (ABNORMAL) Hemogram (10/26/2023 4:21 AM EST) White Blood Cell 4.5 4.0 - 9.5 x10(3)/mc L [facility] Red Blood Cell 3.61(L) 4.00 - 5.21 x10(6)/mc L [facility] Hemoglobin 11.9 11.7 - 15.5 g/dL [facility] Hematocrit 34.6(L) 35.7 - 45.8 % [facility] Mean Cell Volume 95.8(H) 82.6 - 94.4 fL [facility] Mean Cell Hemoglobin 33.0(H) 27.1 - 32.0 pg [facility] Mean Cell Hemoglobin Concentration 34.4 31.7 - 35.0 g/dL [facility] Platelet 146 145 - 357 x10(3)/mc L [facility] RDW Standard Deviation 39.8 37.0 - 46.0 fL [facility] RDW coefficient of variation 11.3(L) 11.5 - 14.1 % [facility] Mean Platelet Volume 10.2 7.6 - 12.9 fL [facility] NRBC% auto 0.0 % [facility] NRBC Absolute 0.000 0.000 - 0.000 x10(3)/mc L [facility] Blood 10/26/2023 4:21 AM EST 10/26/2023 4:39 AM EST Narrative Resulting Agency Comment Spec In Lab Silva Reaves MD HEMATOLOGY ORDERABLE S Performing Organization Address [facility] Co de Phone Number [facility] [place] [address] * Gentamicin level, random (10/25/2023 7:26 AM EST) Gentamicin, 6-14 hour Post Dose 1.5 mg/L [facility] Comment:This is a 6-14 hour post dose level (7mg/kg dosing only). Blood 10/25/2023 7:26 AM EST 10/25/2023 7:38 AM EST Narrative Resulting Agency Comment Spec In Lab Yue Lassiter MD CHEMISTRY ORDERAB LES Performing Organization Address [facility] Co de Phone Number [facility] [place] [address] * ABORH Recheck Status (10/25/2023 4:44 AM EST) Pathologist [facility] ABORH Recheck Order Order Placed [facility] ABORH Type Recheck Completed [facility] Blood 10/25/2023 4:44 AM EST 10/25/2023 5:27 AM EST Narrative Resulting Agency Comment Spec In Lab Tarun Hudson MD BLOOD BANK LAB OR DERABLES Performing Organization Address [facility] Co de Phone Number [facility] [place] [address] * Differential, Automated (10/25/2023 4:44 AM EST) Neutrophil % 66.7 % [facility] Neutrophil Absolute 4.27 1.70 - 6.10 x10(3)/[facility] LABORATORY Lymph % 23.6 % [facility] Lymphocytes Abs 1.5 0.9 - 3.2 x10(3)/[facility] LABORATORY Monocyte % 8.6 % [facility] Monocyte Abs 0.6 0.3 - 0.9 x10(3)/[facility] LABORATORY Eos % 0.3 % [facility] Eosinophils Abs 0.0 0.0 - 0.4 x10(3)/[facility] LABORATORY Basophil % 0.5 % [facility] Baso Absolute 0.0 0.0 - 0.1 x10(3)/[facility] LABORATORY Immature Gran % 0.30 % [facility] Comment: Immature granulocytes(IG's)percentage and absolute count will include metamyelocytes, myelocytes, and promyelocytes. Blood smears from CBCs yielding IG's will be scanned manually for concordance. If this scan disagrees with the automated IG or if promyelocytes are noted, a manual differential will be performed. Immature Gran Absolute 0.02 0.00 - 0.04 x10(3)/[facility] LABORATORY Blood 10/25/2023 4:44 AM EST 10/25/2023 4:53 AM EST Narrative Resulting Agency Comment Spec In Lab Dea L Kirit DO HEMATOLOGY ORDERABLE S Performing Organization Address City/State/[facility] Co de Phone Number [facility] [place] [address] * (ABNORMAL) Hemogram (10/25/2023 4:44 AM EST) White Blood Cell 6.4 4.0 - 9.5 x10(3)/mc L [facility] Red Blood Cell 3.56(L) 4.00 - 5.21 x10(6)/mc L [facility] Hemoglobin 11.7 11.7 - 15.5 g/dL [facility] Hematocrit 35.6(L) 35.7 - 45.8 % [facility] Mean Cell Volume 100.0(H) 82.6 - 94.4 fL [facility] Mean Cell Hemoglobin 32.9(H) 27.1 - 32.0 pg [facility] Mean Cell Hemoglobin Concentration 32.9 31.7 - 35.0 g/dL [facility] Platelet 127(L) 145 - 357 x10(3)/mc L [facility] RDW Standard Deviation 41.8 37.0 - 46.0 fL [facility] RDW coefficient of variation 11.5 11.5 - 14.1 % [facility] Mean Platelet Volume 10.2 7.6 - 12.9 fL [facility] NRBC% auto 0.0 % [facility] NRBC Absolute 0.000 0.000 - 0.000 x10(3)/mc L [facility] Blood 10/25/2023 4:44 AM EST 10/25/2023 4:53 AM EST Narrative Resulting Agency Comment Spec In Lab Dea Beth DO HEMATOLOGY ORDERABLE S Performing Organization Address [facility] Co de Phone Number [facility] [place] [address] * Type and screen ([facility]/CGP/OSVALDO) (10/25/2023 4:44 AM EST) ABORH Type B NEGATIVE [facility] Patient BB History Not Found [facility] Expires at [id number] on: 10/28/2023 [facility] Ab Screen Interp Negative [facility] Blood 10/25/2023 4:44 AM EST 10/25/2023 4:44 AM EST Narrative [facility] - 10/25/2023 4:44 AM EST This Type and Screen result is only valid at the [facility] Resulting Agency Comment Spec In Lab Yue Lassiter MD BLOOD BANK LAB OR DERABLES Performing Organization Address [facility] de Phone Number [facility] [place] [address] * Surgical Pathology Report (10/24/2023 5:59 PM EST) Final Diagnosis [id number] ? Location: L1WD; 0110; A The signing pathologist has (i) examined the relevant preparation(s) for the specimen(s) and (ii) rendered or confirmed the diagnosis(es). . ?Surgical Pathology DIAGNOSIS A - Vaginal cuff incision (excision): ??- Cervical squamous mucosa with exuberant necroinflammatory debris, ?necrotic squamous epithelium, granulation tissue, and reactive stromal ?changes. ??- Negative for fungal microorganisms. Electronically signed by: ?Kolby MADDOX, Yumi Marie Verified: ??11/08/2023 9:07 ?? Pathologist Performed at: ??-[facility] Dept. of Pathology, [place] [address] Hearing Aid Repair Technician: Jennifer Medina MD, AP, ??CLIA Certificate: [id number] ADDITIONAL STUDIES Immunohistochemistry Studies: Formalin-fixed, paraffin-embedded tissue sections are studied using the polymer technique with appropriate positive and negative controls. ?These IHC studies provide the pathologist with adjunctive diagnostic information. Antibody specificity has been verified by testing antibodies on a series of in-house tissues with known immunohistochemical performance characteristics. The clinical interpretation of any antibody positive staining or its absence is evaluated within the context of clinical presentation, morphology, histopathological criteria and other diagnostic tests. Block ? Antibody ?Result (Positive/Negative) A1 ? [id number] ? Positive in epithelial cells Special stains are performed. Block ? Stain ? Result A1 ? GMS ?Negative Deeper levels were examined. SPECIMEN(S) SUBMITTED A - Vaginal cuff incision, biopsy (2) CLINICAL INFORMATION Vaginal cuff tear SPECIMEN PROCESSING A - Labeled/Fixative: Vaginal cuff incision, fresh. Quantity/Size: Three, 2.5 x 1.5 x 0.5 cm. Tissue Description: Fragments of barney-hightower tissue, partially covered with ??mucosa. Sections/Processing: Nozzle Cement Sprayer Helper sections in 1 cassette labeled A1. ??AOO 11/08/2023 9:07 AM EST [facility] VAGINAL STRUCTURE / Unknown 10/24/2023 5:59 PM EST 10/24/2023 5:59 PM EST Yue Lassiter MD PATHOLOGY/CYTOLOG Y ORDERABLES [facility] [place], [place] [id number] [place] [address] [place] [address] * Specimen to Pathology (10/24/2023 5:59 PM EST) AP Specimen 10/24/2023 5:59 PM EST 10/24/2023 5:59 PM EST Narrative [facility] - 10/24/2023 5:59 PM EST Specimen requisition ordered. ??Separate Pathology report to follow Yue Lassiter MD PATHOLOGY/CYTOLOG Y ORDERABLES Performing Organization Address [facility] Co de Phone Number [facility] [place] [address] * (ABNORMAL) Abscess/Wound Aspirate Culture (10/24/2023 5:08 PM EST) Abscess/Wound Aspirate Culture No growth(A) [facility] Reviewed Stain Note: This is a corrected report Many Neutrophils seen No microorganisms seen. Previously reported as: Many Neutrophils seen Few Gram Positive Cocci seen (A) [facility] Gram Stain Many Neutrophils seen Few Gram Positive Cocci seen (A) [facility] Organism Gram Positive Cocci(A) [facility] Deep Wound ABDOMEN / Unknown 10/24/2023 5:08 PM EST 10/24/2023 6:41 PM EST Comment:Peritoneal fluid Narrative Resulting Agency Comment Spec In Lab Yue Lassiter MD MICROBIOLOGY - GE NERAL ORDERABLES Performing Organization Address City/[facility]/ZIP Co de Phone Number [facility] [place] [address] * (ABNORMAL) BLOOD GAS 2 ARTERIAL (10/24/2023 4:22 PM EST) pH, Arterial 7.48(H) 7.35 - 7.45 [facility] PCO2, Arterial 35 35 - 45 mmHg [facility] PO2, Arterial 466(H) 85 - 104 mmHg [facility] Bicarbonate, Arterial 25.7 20.0 - 26.0 mmol/L [facility] Base Excess, Arterial 2.2 -3.0 - 3.0 mmol/L [facility] Hgb Blood Gas 13.4 11.7 - 15.5 g/dL [facility] Oxyhemoglobin, Arterial 98.9(H) 94.0 - 97.0 % [facility] Carboxyhemoglob in, Arterial 0.5 % [facility] Comment: Nonsmokers: 0.5-1.5% COHB Smokers: Variable, but usually less than 10% Toxic: 20-30% COHB Lethal: Greater than 60% COHB Methemoglobin, Arterial 0.3 <=1.5 % [facility] Na Whole Blood 139 135 - 145 mmol/L [facility] K Whole Blood 3.6 3.5 - 5.0 mmol/L [facility] Comment: Please note: Patients with WBC >100,000 may have falsely elevated Potassium levels. Contact the Clinical Chemistry Laboratory if there are any questions. ICa Whole Blood 1.15 1.15 - 1.33 mmol/L [facility] Comment: Note: ??Total bilirubin higher than 20 mg/dL may lead to falsely low ionized calcium. CL Whole Blood 107 98 - 107 mmol/L [facility] Gluc Whole Bld 104 65 - 199 mg/dL [facility] Comment:Diabetes: >=200 mg/d L plus symptoms. Lactate WB 0.9 0.5 - 2.2 mmol/L [facility] Blood 10/24/2023 4:22 PM EST 10/24/2023 4:22 PM EST Yue Lassiter MD POINT OF CARE AURELIA T ORDERABLES [facility] [place] [address] * L-Lactate2 Whole Blood (10/24/2023 1:50 PM EST) Lactate WB 0.9 0.5 - 2.2 mmol/L [facility] Blood 10/24/2023 1:50 PM EST 10/24/2023 1:50 PM EST Yvonne Oquendo MD CHEMISTRY ORDERABLES Performing Organization Address [facility] Co de Phone Number [facility] [place] [address] * Blood culture (10/24/2023 1:30 PM EST) Blood Culture No growth at 5 days. [facility] Blood ANTECUBITAL REGION STRUCTURE / Unknown 10/24/2023 1:30 PM EST 10/24/2023 2:26 PM EST Comment:#2 Narrative Resulting Agency Comment Spec In Lab Yvonne Oquendo MD MICROBIOLOGY - BLOOD ORDERABLES Performing Organization Address [facility] Co de Phone Number [facility] [place] [address] * Blood culture (10/24/2023 1:30 PM EST) Blood Culture No growth at 5 days. [facility] Blood STRUCTURE OF LEFT FOREARM / Unknown 10/24/2023 1:30 PM EST 10/24/2023 2:25 PM EST Comment:#1 Narrative Resulting Agency Comment Spec In Lab Yvonne Oquendo MD MICROBIOLOGY - BLOOD ORDERABLES Performing Organization Address [facility] Co de Phone Number [facility] [place] [address] * Urinalysis with reflex Culture (10/24/2023 12:35 PM EST) Glucose, Urine Dipstick Negative Negative mg/dL [facility] Protein, Urine Dipstick Negative Negative mg/dL [facility] Bilirubin, Urine Dipstick Negative Negative mg/dL [facility] Comment: Clinical correlation required for positive Urine Bilirubin results as false positive may occur with some drugs and drug related products. If a false positive is suspected a serum total bilirubin should be considered if clinically indicated. Urobilinogen, Urine Dipstick Normal Normal mg/dL [facility] pH, Urn (dipstick) 6.0 5.0 - 8.0 [facility] Blood, Urine Dipstick Negative Negative mg/dL [facility] Ketone, Urine Dipstick Negative Negative mg/dL [facility] Nitrite, Urine Dipstick Negative Negative [facility] Leukocytes, Urine Dipstick Negative Negative mcL [facility] Appearance, Urine Dipstick Clear Clear [facility] Specific [place] Urine Automated 1.028 1.005 - 1.030 [facility] Color, Urine Dipstick Yellow Yellow [facility] Reflex to Culture No [facility] Clean Catch Urine 10/24/2023 12:35 PM EST 10/24/2023 12:47 PM EST Narrative Resulting Agency Comment Spec In Lab Yvonne Oquendo MD URINE ORDERABLES Performing Organization Address City/State/[facility] Co de Phone Number [facility] [place] [address] * (ABNORMAL) Differential, Automated (10/24/2023 12:32 PM EST) Neutrophil % 83.7 % [facility] Neutrophil Absolute 10.18(H) 1.70 - 6.10 x10(3)/mc L [facility] Lymph % 9.0 % [facility] Lymphocytes Abs 1.1 0.9 - 3.2 x10(3)/mc L [facility] Monocyte % 6.5 % [facility] Monocyte Abs 0.8 0.3 - 0.9 x10(3)/mc L [facility] Eos % 0.2 % [facility] Eosinophils Abs 0.0 0.0 - 0.4 x10(3)/mc L [facility] Basophil % 0.2 % [facility] Baso Absolute 0.0 0.0 - 0.1 x10(3)/mc L [facility] Immature Gran % 0.40 % [facility] Comment: Immature granulocytes(IG's)percentage and absolute count will include metamyelocytes, myelocytes, and promyelocytes. Blood smears from CBCs yielding IG's will be scanned manually for concordance. If this scan disagrees with the automated IG or if promyelocytes are noted, a manual differential will be performed. Immature Gran Absolute 0.05(H) 0.00 - 0.04 x10(3)/mc L [facility] Blood 10/24/2023 12:3 2 PM EST 10/24/2023 12:39 PM EST Narrative Resulting Agency Comment Spec In Lab Yvonne Oquendo MD HEMATOLOGY ORDERABLE S Performing Organization Address City/[facility]/ZIP Co de Phone Number [facility] [place] [address] * (ABNORMAL) Hemogram (10/24/2023 12:32 PM EST) White Blood Cell 12.2(H) 4.0 - 9.5 x10(3)/[facility] LABORATORY Red Blood Cell 4.74 4.00 - 5.21 x10(6)/[facility] LABORATORY Hemoglobin 15.8(H) 11.7 - 15.5 g/dL [facility] Hematocrit 44.7 35.7 - 45.8 % [facility] Mean Cell Volume 94.3 82.6 - 94.4 fL [facility] Mean Cell Hemoglobin 33.3(H) 27.1 - 32.0 pg [facility] Mean Cell Hemoglobin Concentration 35.3(H) 31.7 - 35.0 g/dL [facility] Platelet 191 145 - 357 x10(3)/ L [facility] RDW Standard Deviation 38.9 37.0 - 46.0 fL [facility] RDW coefficient of variation 11.2(L) 11.5 - 14.1 % [facility] Mean Platelet Volume 10.1 7.6 - 12.9 fL [facility] NRBC% auto 0.0 % [facility] NRBC Absolute 0.000 0.000 - 0.000 x10(3)/ L [facility] Blood 10/24/2023 12:3 2 PM EST 10/24/2023 12:39 PM EST Narrative Resulting Agency Comment Spec In Lab Yvonne Oquendo MD HEMATOLOGY ORDERABLE S Performing Organization Address City/[facility] Co de Phone Number [facility] [place] [address] * Lipase (10/24/2023 12:32 PM EST) Lipase 43 0 - 60 unit/L [facility] Blood 10/24/2023 12:3 2 PM EST 10/24/2023 12:39 PM EST Narrative Resulting Agency Comment Spec In Lab Yvonne Oquendo MD CHEMISTRY ORDERABLES Performing Organization Address [facility] de Phone Number [facility] [place] [address] * Hepatic Function Panel (10/24/2023 12:32 PM EST) Pathologist [facility] Protein, Total 7.2 6.1 - 8.0 g/dL [facility] Albumin 4.4 3.2 - 5.2 g/dL [facility] Aspartate Aminotransferase 25 0 - 30 unit/L [facility] Alanine Aminotransferase 23 0 - 30 unit/L [facility] Alkaline Phosphatase 52 35 - 105 unit/L [facility] Bilirubin, Total 0.6 0.2 - 1.3 mg/dL [facility] Bilirubin, Direct 0.2 0.0 - 0.3 mg/dL [facility] Blood 10/24/2023 12:3 2 PM EST 10/24/2023 12:39 PM EST Narrative Resulting Agency Comment Spec In Lab Yvonne Oquendo MD CHEMISTRY ORDERABLES Performing Organization Address [facility] Phone Number [facility] [place] [address] * (ABNORMAL) Basic Metabolic Panel (non-fasting) (10/24/2023 12:32 PM EST) Pathologist [facility] Glucose 97 65 - 199 mg/dL [facility] Comment:Diabetes: >=200 mg/d L plus symptoms Blood Urea Nitrogen 15 8 - 18 mg/dL [facility] Creatinine 0.68(L) 0.70 - 1.20 mg/dL [facility] Sodium 143 135 - 145 mmol/L [facility] Potassium 3.8 3.5 - 5.0 mmol/L [facility] Comment: Please note: ??Patients with WBC >100,000 may have falsely elevated Potassium levels. ??For accurate Potassium quantification in these patients send serum separator tube (gold top) for subsequent determinations. ??Contact the Clinical Chemistry Laboratory if there are any questions. Chloride 104 98 - 107 mmol/L [facility] Carbon Dioxide 28 22 - 31 mmol/L [facility] Anion Gap 11 5 - 15 mmol/L [facility] Calcium 9.7 8.5 - 10.5 mg/dL [facility] Est Glomerular Filtration Rate 105 >=60 mL/min/1. 73 m?? [facility] Comment: This patient's estimated GFR was calculated using the 2020 CKD-EPI equation. The estimated GFR can vary from the measured GFR by up to 30% in the absence of rapidly changing kidney function. Assessment of the estimated GFR is not appropriate when creatinine concentrations are rapidly changing. For clinical situations in which a more precise estimate of GFR is necessary, consider alternative methods of GFR estimation such as a 24-hour urine creatinine clearance. Assignment of CKD stage 1-5 for patients with an eGFR near the transition point between stages may be based on clinical assessment of muscle mass and symptoms in addition to eGFR. Blood 10/24/2023 12:3 2 PM EST 10/24/2023 12:39 PM EST Narrative Resulting Agency Comment Spec In Lab Yvonne Oquendo MD CHEMISTRY ORDERABLES Performing Organization Address City/State/[facility] Co de Phone Number [facility] [place] [address] * EKG 12 Lead (10/24/2023 12:21 PM EST) Ventricular rate 97 BPM MUSE SYSTEM Atrial Rate 97 BPM MUSE SYSTEM P-R Interval 170 ms MUSE SYSTEM QRS Duration 70 ms MUSE SYSTEM Q-T Interval 336 ms MUSE SYSTEM QTC Calculated (Bezet) 426 ms MUSE SYSTEM Calculated P [place] 75 degrees MUSE SYSTEM Calculated R [place] 44 degrees MUSE SYSTEM Calculated T [place] 49 degrees MUSE SYSTEM INTERPRETATION Normal sinus rhythm Possible Left atrial enlargement Borderline ECG No previous ECGs available Confirmed by MD Serafin, Roro ([id number]) on 10/27/2023 3:26:01 PM MUSE SYSTEM 10/24/2023 12:2 1 PM EST 10/27/2023 3:26 PM EST Yvonne Oquendo MD ECG ORDERABLES MUSE SYSTEM documented in this encounter Visit Diagnoses Not on filedocumented in this encounter Admitting Diagnoses Diagnosis Vaginal discharge Leukorrhea, not specified as infective documented in this encounter Administered Medications Inactive Administered Medications - up to 3 most recent administrations Medication Order MAR Action Action Date Dose Rate Site acetaminophen (Tylenol) tablet 975 mg 975 mg, Oral, EVERY 6 HOURS SCHEDULED, First dose on Hayley 10/25/23 at 0000, Until Discontinued, Maximum dose of acetaminophen is 4,000 mg from all sources in 24 hours. Both acetaminophen and ibuprofen, if ordered, should be given even when other ordered pain medications are indicated., Routine Given 10/26/2023 5:06 AM EST 975 mg Given 10/26/2023 12:30 AM EST 975 mg Given 10/25/2023 6:14 PM EST 975 mg ampicillin (Omnipen) 1 g vial attach to sodium chloride 0.9% 100 mL Mini-Bag Plus 1,000 mg (1 g), Intravenous, EVERY 6 HOURS SCHEDULED, First dose on Sun10/24/23 at 1915, Until Discontinued, Administer over 15 Minutes, Warning Vesicant/Irritant Medication , Indication for (Active or Suspected): Other (See comment) New Bag 10/26/2023 6:04 AM EST 1,000 mg 400 mL/hr New Bag 10/26/2023 12:30 AM EST 1,000 mg 400 mL/hr New Bag 10/25/2023 6:14 PM EST 1,000 mg 400 mL/hr BUpivacaine (pf) (Marcaine) (2.5 mg/mL) 0.25% injection PRN, Starting on Sun10/24/23 at 1832, Until Sun10/26/23 at 1340, Intra-Operative (Intra-Procedure), Routine Given 10/24/2023 6:32 PM EST 20 mLs clindamycin (Cleocin) 300 mg in dextrose 5% 50 mL infusion 300 mg, Intravenous, EVERY 8 HOURS, First dose on Sun10/24/23 at 2015, Until Discontinued, Administer over 10 Minutes, Indication for (Active or Suspected): Other (See comment) New Bag 10/26/2023 5:06 AM EST 300 mg 300 mL/hr New Bag 10/25/2023 7:37 PM EST 300 mg 300 mL/hr New Bag 10/25/2023 1:16 PM EST 300 mg 300 mL/hr enoxaparin (Lovenox) (40 mg/0.4 mL) subcutaneous injection 40 mg 40 mg, Subcutaneous, NIGHTLY, First dose on Hayley 10/25/23 at 2100, Until Discontinued, Routine Given 10/25/2023 8:20 PM EST 40 mg gentamicin (Garamycin) 240.4 mg in sodium chloride 0.9% 106.01 mL infusion 240.4 mg (rounded from 240.5 mg = 5 mg/kg/dose ? 48.1 kg Adjusted weight), Intravenous, EVERY 24 HOURS, First dose on Sun10/24/23 at 2100, Until Discontinued, Administer over 60 Minutes, This medication may have an associated drug lab level. Please check for lab orders. Warning Vesicant/Irritant Medication , Indication for (Active or Suspected): Other (see comments) New Bag 10/25/2023 8:20 PM EST 240.4 mg 106 mL/hr New Bag 10/24/2023 9:01 PM EST 240.4 mg 106 mL/hr Gentamicin Level - MAR Order Reminder NOT APPLICABLE, PER PHARMACY, Other, Starting on Sun10/25/23 at 0600, Until Sun10/26/23 at 1340, This alert will be scheduled by a pharmacist after order placement. This order is a reminder to nursing staff to release and draw the PRN drug level at the specified time. It may be necessary to contact phlebotomy 60 minutes prior to the scheduled due time to assure a timely blood draw. ondansetron (pf) (Zofran) (2 mg/mL) injection 4 mg 4 mg, Intravenous, EVERY 8 HOURS PRN, Starting on Sun10/24/23 at 2135, Until Sun10/26/23 at 1340, Nausea Given 10/24/2023 10:00 PM EST 4 mg oxyCODONE (Roxicodone) tablet 10 mg 10 mg, Oral, EVERY 4 HOURS PRN, Starting on Sun10/24/23 at 1956, Until Sun10/26/23 at 1340, Pain, for pain scale 9-10, Routine Given 10/25/2023 6:14 PM EST 10 mg oxyCODONE (Roxicodone) tablet 5 mg 5 mg, Oral, EVERY 4 HOURS PRN, Starting on Sun10/24/23 at 1956, Until Sun10/26/23 at 1340, Pain, for pain scale 6-8, Routine Given 10/25/2023 9:28 AM EST 5 mg Given 10/25/2023 12:51 AM EST 5 mg Given 10/24/2023 11:32 PM EST 5 mg pantoprazole EC (Protonix) tablet 40 mg 40 mg, Oral, DAILY, First dose on Sun10/25/23 at 0900, Until Discontinued, DO NOT CRUSH OR OPEN, Routine Given 10/26/2023 8:52 AM EST 40 mg Given 10/25/2023 8:21 AM EST 40 mg phenoL 1.4% (Chloraseptic) spray 1 spray 1 spray, Oral, EVERY 2 HOURS PRN, Starting on Sun10/25/23 at 0700, Until Sun10/26/23 at 1340, Irritation, Routine polyethylene glycoL (Miralax) packet 17 g 17 g, Oral, 2 TIMES DAILY, First dose (after last modification) on Sun10/25/23 at 0900, Until Discontinued, Administer if no bowel movement within 48 hours to achieve: (1) One bowel movement at least every 48 hours, AND (2) without straining. If multiple PRN bowel medications ordered, start with polyethylene glycoL, then lactulose, then oral bisacodyL, then bisacodyL suppository, then magnesium citrate, then tap water enema. Multiple medications may be given concomitantly for constipation., Routine Given 10/26/2023 8:52 AM EST 17 g Given 10/25/2023 8:20 PM EST 17 g Given 10/25/2023 8:21 AM EST 17 g simethicone (Gas-X Chew) 80 mg chewable tablet 80 mg 80 mg, Oral, EVERY 6 HOURS PRN, Starting on Sun10/25/23 at 1211, Until Sun10/26/23 at 1340, Cramping, Routine Given 10/25/2023 12:25 PM EST 80 mg sodium chloride 0.9 % (flush) (BD PosiFlush Normal Saline 0.9) flush 5 mL 5 mL, Intravenous, 2 TIMES DAILY, First dose on Sun10/24/23 at 2230, Until Discontinued, Routine Given 10/26/2023 8:53 AM EST 5 mLs Given 10/25/2023 8:20 PM EST 5 mLs Given 10/25/2023 9:42 AM EST 5 mLs documented in this encounter Active and Recently Administered Medications Times are shown in EST. Scheduled Medication Order 10/24/2023 10/25/2023 10/26/2023 acetaminophen (Tylenol) tablet 975 mg 975 mg, Oral, EVERY 6 HOURS SCHEDULED, First dose on Sun10/25/23 at 0000, Until Discontinued, Maximum dose of acetaminophen is 4,000 mg from all sources in 24 hours. Both acetaminophen and ibuprofen, if ordered, should be given even when other ordered pain medications are indicated., Routine 2332 (Given - Provider: Sophia Gregorio RN) 0558 (Given - Provider: Sophia Gregorio RN)1224 (Given - Provider: Pam Gambino, ALEN)1814 (Given - Provider: Marnie Torrez RN) 0030 (Given - Provider: Ángel Tidwell RN)0506 (Given - Provider: Ángel Tidwell RN) ampicillin (Omnipen) 1 g vial attach to sodium chloride 0.9% 100 mL Mini-Bag Plus 1,000 mg (1 g), Intravenous, EVERY 6 HOURS SCHEDULED, First dose on Sun10/24/23 at 1915, Until Discontinued, Administer over 15 Minutes, Warning Vesicant/Irritant Medication , Indication for (Active or Suspected): Other (See comment) 1938 (New Bag - Provider: Dwain Torres RN)1953 (Stopped - Provider: Dwain Torres RN) 0047 (New Bag - Provider: Sophia Gregorio RN)0109 (Stopped - Provider: Sophia Gregorio RN)0718 (New Bag - Provider: Sophia Gregorio RN)0733 (Stopped - Provider: Marnie Torrez, ALEN)1341 (New Bag - Provider: Anjelica Emerson RN)1459 (Stopped - Provider: Marnie Torrez, ALEN)1814 (New Bag - Provider: Marnie Torrez, ALEN)1855 (Stopped - Provider: Pam Gambino RN) 0030 (New Bag - Provider: Ángel Tidwell RN)0045 (Stopped - Provider: Ángel Tidwell, RN)0604 (New Bag - Provider: Ángel Tidwell, RN)0619 (Stopped - Provider: Ángel Tidwell, RN) clindamycin (Cleocin) 300 mg in dextrose 5% 50 mL infusion 300 mg, Intravenous, EVERY 8 HOURS, First dose on Sun10/24/23 at 2015, Until Discontinued, Administer over 10 Minutes, Indication for (Active or Suspected): Other (See comment) 2011 (New Bag - Provider: Dwain Torres RN)2021 (Stopped - Provider: Dwain Torres RN) 040 (New Bag - Provider: Sophia Gregorio, ALEN)0436 (Stopped - Provider: Sophia Gregorio, ALEN)1316 (New Bag - Provider: Anjelica Emerson RN)1459 (Stopped - Provider: Marnie Torrez, ALEN)193 (New Bag - Provider: Ángel Tidwell, ALEN)1947 (Stopped - Provider: Ángel Tidwell, ALEN) 0506 (New Bag - Provider: Ángel Tidwell, ALEN)0516 (Stopped - Provider: Ángel Tidwell, RN) enoxaparin (Lovenox) (40 mg/0.4 mL) subcutaneous injection 40 mg 40 mg, Subcutaneous, NIGHTLY, First dose on Sun10/25/23 at 2100, Until Discontinued, Routine 2019 (Given - Provider: Ángel Tidwell, ALEN) gentamicin (Garamycin) 240.4 mg in sodium chloride 0.9% 106.01 mL infusion(Linked Group 1) 240.4 mg (rounded from 240.5 mg = 5 mg/kg/dose ? 48.1 kg Adjusted weight), Intravenous, EVERY 24 HOURS, First dose on Sun10/24/23 at 2100, Until Discontinued, Administer over 60 Minutes, This medication may have an associated drug lab level. Please check for lab orders. Warning Vesicant/Irritant Medication , Indication for (Active or Suspected): Other (see comments) 2100 (New Bag - Provider: Dwain Torres RN)2208 (Stopped - Provider: Sophia Gregorio RN)2209 (Stopped - Provider: Sophia Gregorio, ALEN) 2019 (New Bag - Provider: Ángel Tidwell RN)2119 (Stopped - Provider: Ángel Tidwell RN) lactated ringers infusion (COMPLETED)(Linked Group 2) 1,000 mL, Intravenous, ONCE, 1 dose, On Sun10/24/23 at 1314, IV Fluid bolus for Sepsis; Patient BMI is 19.4 kg/m2, (< or = 30 kg/m2) so dosing based on ACTUAL body weight. Current Body Weight of 48.08 kg x 30 mL/kg/dose = 1,442 mL, rounded to 1,500 mL for target resuscitation volume. 1343 (New Bag - Provider: Glenna Huizar RN)1357 (Stopped - Provider: Glenna Huizar, RN) lactated ringers infusion (COMPLETED)(Linked Group 2) 500 mL, Intravenous, ONCE, 1 dose, On Sun10/24/23 at 1329, See first of linked orders for information on IV Fluid Bolus Dosing 1357 (New Bag - Provider: Glenna Huizar RN)1412 (Stopped - Provider: Glenna Huizar, ALEN) pantoprazole EC (Protonix) tablet 40 mg 40 mg, Oral, DAILY, First dose on Hayley 10/25/23 at 0900, Until Discontinued, DO NOT CRUSH OR OPEN, Routine 0821 (Given - Provider: Marnie Torrez, ALEN) 0852 (Given - Provider: Marnie Torrez, ALEN) piperacillin-tazobactam (Zosyn) 4.5 g vial attach to sodium chloride 0.9% 100 mL Mini-Bag Plus (COMPLETED) 4.5 g, Intravenous, ONCE, 1 dose, On Sun10/24/23 at 1314, Administer over 0.5 Hours, Warning Vesicant/Irritant Medication Do not administer or Y-site with lactated ringers., Indication for (Active or Suspected): Bacteremia/Sepsis 1346 (New Bag - Provider: Glenna Huizar RN)1416 (Stopped - Provider: Glenna Huizar, ALEN) polyethylene glycoL (Miralax) packet 17 g 17 g, Oral, 2 TIMES DAILY, First dose (after last modification) on Hayley 10/25/23 at 0900, Until Discontinued, Administer if no bowel movement within 48 hours to achieve: (1) One bowel movement at least every 48 hours, AND (2) without straining. If multiple PRN bowel medications ordered, start with polyethylene glycoL, then lactulose, then oral bisacodyL, then bisacodyL suppository, then magnesium citrate, then tap water enema. Multiple medications may be given concomitantly for constipation., Routine 08 (Given - Provider: Marnie Torrez, ALEN)2019 (Given - Provider: Ángel Tidwell, ALEN) 0852 (Given - Provider: Marnie Torrez RN) sodium chloride 0.9 % (flush) (BD PosiFlush Normal Saline 0.9) flush 5 mL 5 mL, Intravenous, 2 TIMES DAILY, First dose on Sun10/24/23 at 2230, Until Discontinued, Routine 2206 (Given - Provider: Sophia Gregorio RN) 0942 (Given - Provider: Marnie Torrez RN)2019 (Given - Provider: Ángel Tidwell, ALEN) 0853 (Given - Provider: Marnie Torrez RN) Continuous Medication Order 10/24/2023 10/25/2023 10/26/2023 lactated ringers infusion (CANCELED) 1,000 mL, at 100 mL/hr, Intravenous, CONTINUOUS, Starting on Sun10/24/23 at 2230, Until Sun10/25/23 at 0706 2210 (Continued Bag - Provider: Sophia Gregorio RN) 0558 (New Bag - Provider: Sophia Gregorio RN)0942 (Stopped - Provider: Marnie Torrez RN) PRN Medication Order 10/24/2023 10/25/2023 10/26/2023 acetaminophen (Tylenol) tablet 650 mg (CANCELED) 650 mg, Oral, EVERY 6 HOURS PRN, Starting on Sun10/24/23 at 1305, Until Sun10/24/23 at 2143, Pain, Fever, Maximum dose of acetaminophen is 4,000 mg from all sources in 24 hours. When ordered for pain, acetaminophen should be given even when other ordered pain medications are indicated. , Routine 1354 (Given - Provider: Glenna Huizar RN)1622 (MAR Hold - Provider: Admin Adt - Reason: Transfer to a Procedural area)2116 (MAR Unhold - Provider: Admin Adt) BUpivacaine (pf) (Marcaine) (2.5 mg/mL) 0.25% injection (CANCELED) PRN, Starting on Sun10/24/23 at 1832, Until Sun10/26/23 at 1340, Intra-Operative (Intra-Procedure), Routine 1831 (Given - Provider: Yue Lassiter MD) Gentamicin Level - MAR Order Reminder(Linked Group 1) NOT APPLICABLE, PER PHARMACY, Other, Starting on Hayley 10/25/23 at 0600, Until Sun10/26/23 at 1340, This alert will be scheduled by a pharmacist after order placement. This order is a reminder to nursing staff to release and draw the PRN drug level at the specified time. It may be necessary to contact phlebotomy 60 minutes prior to the scheduled due time to assure a timely blood draw. HYDROmorphone (Dilaudid) (0.5 mg/0.5 mL) injection syringe 0.2 mg 0.2 mg, Intravenous, ONCE PRN, 1 dose, Starting on Sun10/24/23 at 2135, Until Sun10/26/23 at 1340, Pain, PRN for Severe Pain (7-10) and if unable to take P.O. medication, PRN for Severe Pain (7-10) and if unable to take P.O. medication, Routine 1050 (Given - Provider: Marnie Torrez RN) HYDROmorphone (Dilaudid) (2 mg/mL) multi-dose injection solution 0.4 mg (CANCELED)(Linked Group 3) 0.4 mg, Intravenous, EVERY 10 MIN PRN, Starting on Sun10/24/23 at 1836, Until Sun10/24/23 at 2116, Pain, For Mild to Moderate Pain (1-5 out of 10), Hold for respiratory rate less than 10 per minute. Maximum dose 3 mg over one hour including administrations in the OR. If multiple pain medications are ordered, start with HYDROmorphone and use fentaNYL for breakthrough pain., PACU Recovery, Routine 1941 (Given - Provider: Dwain Torres RN)1952 (See Alternative - Provider: Dwain Torres RN) HYDROmorphone (Dilaudid) (2 mg/mL) multi-dose injection solution 0.6 mg (CANCELED)(Linked Group 3) 0.6 mg, Intravenous, EVERY 10 MIN PRN, Starting on Sun10/24/23 at 1836, Until Sun10/24/23 at 2116, Pain, For Moderate to Severe Pain (6-10 out of 10), Hold for respiratory rate less than 10 per minute. Maximum dose 3 mg over one hour including administrations in the OR. If multiple pain medications are ordered, start with HYDROmorphone and use fentaNYL for breakthrough pain., PACU Recovery, Routine 1941 (See Alternative - Provider: Dwain Torres, ALEN)1952 (Given - Provider: Dwain Torres, ALEN) lidocaine (Xylocaine) 1% (10 mg/mL) injection 3 mg 3 mg (0.3 mL), Subcutaneous, ONCE PRN, 1 dose, Starting on Sun10/24/23 at 2135, Until Sun10/26/23 at 1340, for discomfort with PIV insertion, Routine ondansetron (pf) (Zofran) (2 mg/mL) injection 4 mg 4 mg, Intravenous, EVERY 8 HOURS PRN, Starting on Sun10/24/23 at 2135, Until Sun10/26/23 at 1340, Nausea 2200 (Given - Provider: Sopiha Gregorio RN) oxyCODONE (Roxicodone) tablet 10 mg(Linked Group 4) 10 mg, Oral, EVERY 4 HOURS PRN, Starting on Sun10/24/23 at 1956, Until Sun10/26/23 at 1340, Pain, for pain scale 9-10, Routine 2331 (See Alternative - Provider: Sophia Gregorio RN) 50 (See Alternative - Provider: Sophia Gregorio RN)927 (See Alternative - Provider: Marnie Torrez, ALEN)1813 (Given - Provider: Marnie Torrez, ALEN) oxyCODONE (Roxicodone) tablet 5 mg(Linked Group 4) 5 mg, Oral, EVERY 4 HOURS PRN, Starting on Sun10/24/23 at 1956, Until Sun10/26/23 at 1340, Pain, for pain scale 6-8, Routine 2331 (Given - Provider: Sophia Gregorio RN) 50 (Given - Provider: Sophia Gregorio RN)0928 (Given - Provider: Marnie Torrez, ALEN)1814 (See Alternative - Provider: Marnie Torrez, ALEN) phenoL 1.4% (Chloraseptic) spray 1 spray 1 spray, Oral, EVERY 2 HOURS PRN, Starting on Sun10/25/23 at 0700, Until Sun10/26/23 at 1340, Irritation, Routine simethicone (Gas-X Chew) 80 mg chewable tablet 80 mg 80 mg, Oral, EVERY 6 HOURS PRN, Starting on Sun10/25/23 at 1211, Until Sun10/26/23 at 1340, Cramping, Routine 1225 (Given - Provider: Pam Gambino RN) sodium chloride 0.9 % (flush) (BD PosiFlush Normal Saline 0.9) flush 5-20 mL 5-20 mL, Intravenous, EVERY 1 MIN PRN, Starting on Sun10/24/23 at 2135, Until Sun10/26/23 at 1340, flush, Flush pertains to all indwelling lines. Flush per protocol found in the job aid using the link provided on this medication record., Routine Linked Groups Order Group 1: gentamicin (Garamycin) 240.4 mg in sodium chloride 0.9% 106.01 mL infusionJump to med 240.4 mg (rounded from 240.5 mg = 5 mg/kg/dose ? 48.1 kg Adjusted weight), Intravenous, EVERY 24 HOURS, First dose on Sun10/24/23 at 2100, Until Discontinued, Administer over 60 Minutes, This medication may have an associated drug lab level. Please check for lab orders. Warning Vesicant/Irritant Medication , Indication for (Active or Suspected): Other (see comments) And Gentamicin level, trough (CANCELED) New collection, Timed, PRN, Starting on Sun10/24/23 at 1841, Until Specified, For 1 occurrence And Gentamicin level, peak (CANCELED) New collection, Timed, PRN, Starting on Sun10/24/23 at 1841, Until Specified, For 1 occurrence And Gentamicin Level - MAR Order ReminderJump to med NOT APPLICABLE, PER PHARMACY, Other, Starting on Sun10/25/23 at 0600, Until Sun10/26/23 at 1340, This alert will be scheduled by a pharmacist after order placement. This order is a reminder to nursing staff to release and draw the PRN drug level at the specified time. It may be necessary to contact phlebotomy 60 minutes prior to the scheduled due time to assure a timely blood draw. Group 2: lactated ringers infusion (COMPLETED)Jump to med 1,000 mL, Intravenous, ONCE, 1 dose, On Sun10/24/23 at 1314, IV Fluid bolus for Sepsis; Patient BMI is 19.4 kg/m2, (< or = 30 kg/m2) so dosing based on ACTUAL body weight. Current Body Weight of 48.08 kg x 30 mL/kg/dose = 1,442 mL, rounded to 1,500 mL for target resuscitation volume. Followed by lactated ringers infusion (COMPLETED)Jump to med 500 mL, Intravenous, ONCE, 1 dose, On Sun10/24/23 at 1329, See first of linked orders for information on IV Fluid Bolus Dosing Group 3: HYDROmorphone (Dilaudid) (2 mg/mL) multi-dose injection solution 0.4 mg (CANCELED)Jump to med 0.4 mg, Intravenous, EVERY 10 MIN PRN, Starting on Sun10/24/23 at 1836, Until Sun10/24/23 at 2116, Pain, For Mild to Moderate Pain (1-5 out of 10), Hold for respiratory rate less than 10 per minute. Maximum dose 3 mg over one hour including administrations in the OR. If multiple pain medications are ordered, start with HYDROmorphone and use fentaNYL for breakthrough pain., PACU Recovery, Routine Or HYDROmorphone (Dilaudid) (2 mg/mL) multi-dose injection solution 0.6 mg (CANCELED)Jump to med 0.6 mg, Intravenous, EVERY 10 MIN PRN, Starting on Sun10/24/23 at 1836, Until Sun10/24/23 at 2116, Pain, For Moderate to Severe Pain (6-10 out of 10), Hold for respiratory rate less than 10 per minute. Maximum dose 3 mg over one hour including administrations in the OR. If multiple pain medications are ordered, start with HYDROmorphone and use fentaNYL for breakthrough pain., PACU Recovery, Routine Group 4: oxyCODONE (Roxicodone) tablet 5 mgJump to med 5 mg, Oral, EVERY 4 HOURS PRN, Starting on Sun10/24/23 at 1956, Until Sun10/26/23 at 1340, Pain, for pain scale 6-8, Routine Or oxyCODONE (Roxicodone) tablet 10 mgJump to med 10 mg, Oral, EVERY 4 HOURS PRN, Starting on Sun10/24/23 at 1956, Until Sun10/26/23 at 1340, Pain, for pain scale 9-10, Routine documented in this encounter Care Teams Solutions Engineer Relationship Specialty Start Date End Date Dea Kc, LICENSED FUNERAL DIRECTOR AND EMBALMER [facility] [place] [address] PCP - General Family Medicine 04/12/23 documented as of this encounter
--- OUTSIDE RECORDS SUMMARY | 2024-07-04 02:59 | XMS_ITS | Encounter Summary ---
Author Organization [facility] [place] [address] Care Team Providers Care Telephone Mechanic Name Role Phone De Dea Marie APRN Primary Care Provider [phone] Encounter Details Date Type Department Care Team (Late st Contact Info) Description 10/24/2023 Interpretation Only Radiology [address] [place] [address] [place] [id number] Unknown None Social History Tobacco Use Types Packs/Day Years Used Date Smoking Tobacco: Former Cigarettes Smokeless Tobacco: Never Alcohol Use Standard Drinks/Week Comments Not Currently 0 (1 standard drink = 0.6 oz pur e alcohol) [facility] Inpatient Questions Answer Date Recorded Does Anyone [...] EST Office Visit Obstetrics [place] [phone] Roma Lara MD [facility] OBSTETRICS AND GYNECOLOGY [place], [place] [id number] 10/27/2024 11:00 AM EST TH Visit (TeleHealth) [place] [address] Kim Gonzalez MD [facility] [place] [address] documented as of this encounter Procedures Procedure Name Priority Date/Time Associated Diagnosis Comments DH OR ENDOSCOPY Routine 10/24/2023 documented in this encounter Results * DH OR Endoscopy (10/24/2023) Anatomical Region Laterality Modality Other 10/24/2023 Narrative 10/24/2023 12:00 AM EST Photographs - Images Procedure Note Unknown - 10/25/2023 Photographs - Images Unknown EA IMAGES documented in this encounter Visit Diagnoses Not on filedocumented in this encounter Care Teams Telephone Mechanic Relationship Specialty Start Date End Date Dea Kc, DIRECTOR COMPENSATION [place] [address] PCP - General Family Medicine 04/12/23 documented as of this encounter
--- OUTSIDE RECORDS SUMMARY | 2024-07-04 02:59 | XMS_ITS | Encounter Summary ---
Author Organization [facility] [place] [address] Care Team Providers Care Finger Waver Name Role Phone Dea Kc APRN Primary Care Provider [phone] Encounter Details Date Type Department Care Team (Late st Contact Info) Description 11/29/2023 10:00 AM EDT TH Visit (TeleHealth) Obstetrics [place] [phone] Roma Lara MD [facility] DR OBST[place] [address] Vaginal dryness; Hot flashes Social History Tobacco Use Types [...] as of this encounter Progress Notes * Roma Lara MD - 11/29/2023 10:00 AM EDT WASHING MACHINE LOADER AND PULLER Follow Up Visit- Telehealth I provided care to the patient today via telehealth TOV. The patient voiced an understanding of thereason and intent of the visit and consented to having their visit completed over telehealth. The patient was counseled about limitations of telehealth visits compared to in person visits for some diagnoses and indications. Patient physically [place] at time of this visit. I spent 20 minutes on this visit including time with the patient and pre-/post-visit planning for the management of WASHING MACHINE LOADER AND PULLER care. Reason for Visit: Yumi is a 53 y.o. history of AUB and fibroids and cervical pain now s/p TLH/BS and urethral sling on 04/25/23 and subsequent repair of vaginal cuff dehiscence who presents for follow up of hotflashes. History of Present Illness: Has been on Veozah for about 3 weeks, symptoms of nightsweats and frequent night time awakenings persist, very uncomfortable Can't sleep and doesn't feel any change since being on Veozah, feels like she is taking nothing no side effects and no improvements Is taking Osphena, does feel that it has helped with her vaginal moisture, taking every other day Has taken Gabapentin previously, made her very groggy the next day Current Outpatient Medications Medication Sig Dispense Refill Estradiol (DivigeL) 0.5 mg/0.5 gram (0.1 %) Gel in Packet Change 0.5 mg on the skin daily. 30 packet 3 ospemifene (Osphena) 60 mg tablet Take 1 tablet by mouth daily. plecanatide (Trulance) 3 mg tablet Take 1 tablet by mouth daily. 90 tablet 3 polyethylene glycoL (Miralax) 17 gram/dose Powder DISSOLVE 17 GRAMS (LINE IN CAP) IN LIQUID AND DRINK BY MOUTH TWICE DAILY 850 g 3 hyoscyamine SL (Levsin SL) 0.125 mg sublingual tablet Take 1 tablet by mouth every 4 hours as needed for Cramping. Max 6 pills per day. 30 tablet 3 prucalopride (Motegrity) 2 mg tablet [...] Take 50 mg by mouth daily. rizatriptan (MAXALT-MAJOR ASSEMBLER) 10 mg Tablet, Rapid Dissolve Take 10 [...] negative except as specified in HPI. Physical Exam- telehealth There were no vitals filed for this visit. General: NAD, comfortable, pleasant Lungs: Unlabored breathing Neuro: grossly intact Pelvic: Deferred Estimates for women ages 50-59 based on the Women's Health Initiative: Estrogen-alone therapy - Number of cases (additional or fewer) per 1000 women per five years of hormone use when compared with placebo: Coronary heart disease - 5.5 fewer cases Invasive breast cancer - 2.5 fewer cases Stroke - 0.5 fewer cases Pulmonary embolism - 1.5 additional cases Colorectal cancer - 0.5 fewer cases Hip fracture - 1.5 additional cases (of note, there was an overall decrease in all osteoporotic fractures in both the estrogen and combined estrogen-progestin groups) All-cause mortality - 5.5 fewer events - The Women's Health Initiative (WHI) demonstrated adverse effects of menopausal hormone therapy (MHT) in older postmenopausal women (over age 60 years or more than 10 years since menopause. - In young, healthy postmenopausal women (eg, <10 years postmenopausal or ages 50 to 59 years) without any contraindications to estrogen, the absolute risk of complications while taking MHT for five years is very low. Assessment/Plan: Yumi is a 53 y.o. P1 history of AUB and fibroids and cervical pain now s/p TLH/BS and urethral sling on 04/25/23 and subsequent repair of vaginal cuff dehiscence who presents for follow up of hotflashes. - Discussed starting estrogen replacement to help with night time symptoms and sleep - Discontinue Veozah - Start Divigel daily, can increase dose if needed - Reviewed risks/benefits, no history of VTE, does have migraine with aura but this is not a contraindication to HRT - Could consider starting Prometrium for help with sleep but does not need for endometrial protection RTC for follow up in January 01. Vaginal dryness ospemifene (Osphena) 60 mg tablet Note to patient: The Cures Act makes medical notes like this available to patients in the interest of transparency. However, be advised this is a medical document. It is intended as [id number] communication. It is written in medical language and may contain abbreviations or verbiage that are unfamiliar. Roma Lara MD 11/29/2023 10:17 AM documented in this encounter Plan of Treatment Upcoming Encounters Date Type Department Care Team (Late st Contact Info) Description 07/17/2024 1:00 PM EST Office Visit Obstetrics [place] [address] Roma Lara MD [facility] DR [place]STET[place]ICS [place] [address] 10/27/2024 11:00 AM EST TH Visit (TeleHealth) [place] [address] Kim Gonzalez MD [facility] [place] [address] documented as of this encounter Visit Diagnoses Diagnosis Vaginal dryness Other specified symptom associated with female genital organs Hot flashes Symptomatic menopausal or female climacteric states documented in this encounter Care Teams Finger Waver Relationship Specialty Start Date End Date Dea Kc, AUTOPSY PATHOLOGIST [place] [address] PCP - General Family Medicine 04/12/23 documented as of this encounter
--- OUTSIDE RECORDS SUMMARY | 2024-07-04 02:59 | XMS_ITS | Encounter Summary ---
[place] [address] Care Team Providers Care Automat Car Attendant Name Role Phone Dea Kc APRN Primary Care Provider [phone] Reason for Visit * Reason Onset Date Comments Prior Authorization 10/09/2023 Trigger Poin t Injection Encounter Details Date Type Department Care Team (Late st Contact Info) Description 10/09/2023 Telephone [place] [phone] Yumiko Anderson Prior Authorization (Trigger Point Injection) [...] Telephone Encounter - Yumiko Anderson - 10/09/2023 4:52 PM EST Voicemail message left in Prior Authorization Office from patient: Yumi McnallyNoemi - 74 She would like a return call to her at ) [phone] and she said it is ok to leave voicemail Her message stated she's calling trying to find out if trigger point injection are covered through Medicaid in [place]/[facility] Care She has an appointment coming up on 10/18/23 that she needs to know if we had to do a prior authorization Per check of Patient Station, patient is scheduled on 10/18/[address] Roma Lara, [facility] [id number]. Patient needs to call [place] Medicaid at [phone] to find out if her insurance covers trigger pointinjection. There are no CPT codes noted for the appointment on 10.18.23 documented in this encounter Plan of Treatment Upcoming Encounters Date Type Department Care Team (Late st Contact Info) Description 07/17/2024 1:00 PM EST Office Visit Obstetrics [place] [address] Roma Lara MD [facility] DR OBSTETRICS [place] [address] 10/27/2024 11:00 AM EST TH Visit (TeleHealth) [place] [address] Kim Gonzalez MD [facility] [place] [address] documented as of this encounter Visit Diagnoses Not on filedocumented in this encounter Care Teams Automat Car Attendant Relationship Specialty Start Date End Date Dea Kc [place] [address] PCP - General Family Medicine 04/12/23 documented as of this encounter
--- OUTSIDE RECORDS SUMMARY | 2024-07-04 02:59 | XMS_ITS | Encounter Summary ---
Author Organization [facility] [place] [address] Care Team Providers Care Rn Pediatric Name Role Phone Dea Kc APRN Primary Care Provider [phone] Encounter Details Date Type Department Care Team (Latest Contact Info) Description 10/13/2023 Travel Social History Tobacco Use Types Packs/Day [...] Office Visit Obstetrics [place] [address] Roma Lara MD [facility] DR OBSTETRICS [place] [address] 10/27/2024 11:00 AM EST TH Visit (TeleHealth) [place] [address] Kim Gonzalez MD [facility] [place] [address] documented as of this encounter Visit Diagnoses Not on filedocumented in this encounter Care Teams Rn Pediatric Relationship Specialty Start Date End Date Dea Kc, BLOWER MECHANIC [facility] [place] [address] PCP - General Family Medicine 04/12/23 documented as of this encounter
--- OUTSIDE RECORDS SUMMARY | 2024-07-04 02:59 | XMS_ITS | Encounter Summary ---
Author Organization [facility] [place] [address] Care Team Providers Care Termite Control Service Representative Name Role Phone Dea Kc APRN Primary Care Provider [phone] Encounter Details Date Type Department Care Team (Latest Contact Info) Description 11/02/2023 Travel Social History Tobacco Use Types Packs/Day [...] EST Office Visit Obstetrics [place] [address] Roma Lara MD [facility] [address] [place]ST[place] [address] 10/27/2024 11:00 AM EST TH Visit (TeleHealth) [place] [address] Kim Gonzalez MD [facility] [place] [address] documented as of this encounter Visit Diagnoses Not on filedocumented in this encounter Care Teams Termite Control Service Representative Relationship Specialty Start Date End Date Dea Kc, ELECTRICAL TECH [facility] [place] [address] PCP - General Family Medicine 04/12/23 documented as of this encounter
--- OUTSIDE RECORDS SUMMARY | 2024-07-04 02:59 | XMS_ITS | Encounter Summary ---
[facility] [place] [address] Care Team Providers Care Youth Care Specialist Name Role Phone Dea Kc APRN Primary Care Provider [phone] Reason for Visit * Reason Comments Follow-up * Auth/Cert (Routine) Specialty Diagnoses / Procedures Referred By Contac t Referred To Contact Diagnoses trigger point injection Procedures trigger point injection [facility] Referral ID Status Reason Start Date Expiration Date Visits Re quested Visits Authorized [id number] 1 1 Encounter Details Date Type Department Care Team (Late st Contact Info) Description 10/18/2023 11:00 AM EST Office Visit Obstetrics [place] [address] Roma Lara MD [facility] OBSTETRICS [place] [address] Vaginal dryness; Hot flashes; Pelvic floor dysfunction Social History Tobacco Use Types Packs/Day Years Used Date Smoking Tobacco: Former Cigarettes Smokeless Tobacco: Never Alcohol Use Standard Drinks/Week Comments Not Currently 0 (1 standard drink = 0.6 oz pur e alcohol) [facility] Inpatient Questions Answer Date Recorded Does [...] Sign Reading Time Taken Comments Blood Pressure 131/80 10/18/2023 10:40 AM EST Pulse 86 10/18/2023 10:40 AM EST Temperature 37.1 ??C (98.7 ??F) 10/18/2023 10:[address] Respiratory Rate 12 10/18/2023 10:40 AM EST Oxygen Saturation 100% 10/18/2023 10:40 AM EST Inhaled Oxygen Concentration - - Weight - - Height - - Body Mass Index - - documented in this encounter Progress Notes * Roma Lara MD - 10/18/2023 11:00 AM EST CORPORATE PILOT Follow Up Visit Reason for Visit: Yumi is a 53 y.o. with a history of AUB and fibroids and cervical pain now s/p TLH/BS and urethral sling on 04/25/[address] Moses in urogyn presenting for follow up and possible trigger point injections. History of Present Illness: Did use vaginal baclofen but didn't really notice a different Still having vaginal pain Not currently in PFPT Getting really bothersome hotflashes Is using vaginal estrogen Would like to try something oral as the cream and anything vaginal is hard to plan sexual activity around Would also like to try treatment for hotflashes, Gabapentin, Paxil, Venlafaxine all make her groggyand tired, even when taken at night Would like to trial vaginal trigger points today Gynecologic History: LMP: No LMP recorded. Patient has had a hysterectomy. Current Outpatient Medications Medication Sig Dispense Refill polyethylene glycoL (Miralax) 17 gram/dose Powder DISSOLVE [...] tablet by mouth daily. 90 tablet 1 tretinoin microspheres (RETIN-A MICRO) 0.1 % Gel daily. estradioL (ESTRACE) 0.01 % (0.1 mg/gram) Cream 1g into vagina nightly for 2 weeks 42.5 g 12 ibuprofen (Advil) 600 mg tablet Take 1 tablet by mouth every 6 hours as needed for Pain. 30 tablet 12 acetaminophen (Tylenol) 325 mg tablet Take 2 tablets by mouth every 4 hours as needed for Pain. 30 tablet 1 cholecalciferol, Vitamin D3, 25 mcg (1,000 [...] FIND Natures bounty (Hair, skin, and nails) plecanatide (Trulance) 3 mg Tablet Take 1 tablet by mouth daily. 90 tablet 3 mirabegron (Myrbetriq) 50 mg Tablet Sustained Release 24 hr Take 50 mg by mouth daily. rizatriptan (MAX[employer] AFFA[employer] OFFICER) 10 mg Tablet, Rapid Dissolve Take 10 mg by mouth as needed. pantoprazole EC (Protonix) 40 mg Tablet, Delayed Release (E.C.) Take 40 mg by mouth daily. ospemifene (Osphena) 60 mg tablet Take 1 tablet by mouth daily. 30 tablet 3 fezolinetant 45 mg Tablet Take 45 mg by mouth daily. 30 tablet 3 turmeric root extract 500 mg capsule daily. baclofen (Lioresal) [address] one tab VAGINALLY up to twice per day as needed for muscle spasm (Patient not taking: Reported on 10/18/2023) 90 tablet 3 oxyCODONE (Roxicodone) 5 mg tablet Take 1 tablet by mouth every 4 hours as needed for Pain. (Patient not taking: Reported on 10/18/2023) 8 tablet 0 Current Facility-Administered Medications Medication Dose Route Frequency Provider Last Rate Last Admin BUpivacaine (Sensorcaine) (2.5 mg/mL) 0.25% injection 50 mg 20 mL Subcutaneous Once Roma Lara MD Allergies Allergen Reactions Fingolimod Venlafaxine Other (See Comments) Headache Aspirin Ibuprofen Amitriptyline Dimethyl Fumarate Fluoxetine Gabapentin exhaustion Glatiramer (Copolymer 1) ROS: Otherwise negative except as specified in HPI. Physical Exam Vitals: 10/18/23 1040 BP: 131/80 BP Location (NBP): Right arm Pulse: 86 Resp: 12 Temp: 37.1 ??C (98.7 ??F) SpO2: 100% General: NAD, comfortable, pleasant Lungs: Unlabored breathing Neuro: grossly intact Pelvic: Tender levator ani and transverse perineae muscles No skin changes VAGINAL TRIGGER POINT INJECTIONS PROCEDURE NOTE DOCUMENTATION OF UNIVERSAL PROTOCOL FOR INVASIVE PROCEDURES Informed consent was obtained verbally. Timeout conducted with patient and all members of the team. We discussed the risks of vaginal trigger point injections including bleeding, infection and allergic reaction. Recommended triamcinolone will be out of her system in 3 weeks. Reviewed side effects of possibly increased appetite, energy, possible sleep issues, possible vaginal bleeding. No history of serious mental health issues, no history of DM. Discussed will be a 3-4 days before the effect of the cortisone kicks in. PROCEDURE NOTE: Type of Procedure: Vaginal trigger point injections Procedure Date: 10/18/2023 Performing Provider: Roma Lara MD Clinical Indications: vaginal pain, vaginismus, pelvic floor dysfunction Description of Procedure: 4% lidocaine cream placed into vagina. After 10 minutes, lidocaine cream was removed. Speculum was placed and betadine swabs x3 were used. An [place] trumpet was used along with spinal needle. 20cc of 0.25% bupivacaine was drawn up. Starting with L side, 10 mL were injected over 3 trigger points. The R side was done in a similar way, 10 mL were injected into 3 trigger points. Speculum exam done, no active bleeding. There were no complications, the patient tolerated the procedure well. Estimated Blood Loss: Min Procedure was chaperoned. Assessment/Plan: Yumi is a 53 y.o. post menopausal female who presents for follow up of pelvic pain and muscle dysfunction. 1. Vaginal dryness ospemifene (Osphena) 60 mg tablet 2. Hot flashes fezolinetant 45 mg Tablet Hepatic Function Panel 3. Pelvic floor dysfunction BUpivacaine (Sensorcaine) (2.5 mg/mL) 0.25% injection 50 mg - Trigger point injections completed - RTC before end november for additional injections - Will trial Osphena for vaginal dryness - Would like to avoid starting systemic estrogen at same time as Osphena, will look to get Veozah prescribed - Baseline LFTs ordered for Veozah start (It is recommended to do baseline LFTS and then perform follow-up bloodwork at 3 months, 6 months, and 9 months and later if clinically indicated for concerning symptoms (eg, jaundice)) Note to patient: The Century Cures Act makes medical notes like this available to patients in the interest of transparency. However, be advised this is a medical document. It is intended as [id number]-olui communication. It is written in medical language and may contain abbreviations or verbiage that are unfamiliar. Total time spent day of service on chart review, disease discussion and therapeutic counseling, as well as, documentation and coordination of care: 20 min in addition to time needed for procedure Roma Lara MD 10/18/2023 11:43 AM * Heidy Scruggs LNA - 10/18/2023 11:00 AM EST Examination chaperoned by PERICO Goel. documented in this encounter Plan of Treatment Upcoming Encounters Date Type Department Care Team (Late st Contact Info) Description 07/17/2024 1:00 PM EST Office Visit Obstetrics [place] [phone] Roma Lara MD [facility] OBSTETRICS [place] [address] 10/27/2024 11:00 AM EST TH Visit (TeleHealth) [place] [phone] Kim Gonzalez MD [facility] [place] [address] documented as of this encounter Procedures Procedure Name Priority Date/Time Associated Diagnosis Comments HEPATIC FUNCTION PANEL Routine 10/18/2023 12:11 PM EST Hot flashes documented in this encounter Results * Hepatic Function Panel (10/18/2023 12:11 PM EST) Protein, Total 6.9 6.1 - 8.0 g/dL [facility] Albumin 4.7 3.2 - 5.2 g/dL [facility] Aspartate Aminotransferase 23 0 - 30 unit/L [facility] Alanine Aminotransferase 25 0 - 30 unit/L [facility] Alkaline Phosphatase 52 35 - 105 unit/L [facility] Bilirubin, Total 0.5 0.2 - 1.3 mg/dL [facility] Bilirubin, Direct 0.1 0.0 - 0.3 mg/dL [facility] Blood 10/18/2023 12:1 1 PM EST 10/18/2023 12:19 PM EST Narrative Resulting Agency Comment Spec In Lab Roma Lara MD CHEMISTRY ORDERABLES [facility] [place] [address] documented in this encounter Visit Diagnoses Diagnosis Vaginal dryness Other specified symptom associated with female genital organs Hot flashes Symptomatic menopausal or female climacteric states Pelvic floor dysfunction Pelvic muscle wasting documented in this encounter Administered Medications Inactive Administered Medications - up to 3 most recent administrations Medication Order MAR Action Action Date Dose Rate Site BUpivacaine (Sensorcaine) (2.5 mg/mL) 0.25% injection 50 mg 50 mg (20 mL), Subcutaneous, ONCE, 1 dose, On Hayley 10/18/23 at 1200, Routine Given 10/18/2023 11:47 AM EST 50 mg documented in this encounter Care Teams Youth Care Specialist Relationship Specialty Start Date End Date Dea [place] [address] PCP - General Family Medicine 04/12/23 documented as of this encounter
--- OUTSIDE RECORDS SUMMARY | 2024-07-04 02:59 | XMS_ITS | Encounter Summary ---
Author Organization [facility] [place] [address] Care Team Providers Care Entry Level Truck Driver Name Role Phone Dea Kc APRN Primary Care Provider Reason for Visit * Reason Onset Date Comments Medication Refill 09/12/2023 Encounter Details Date Type Department Care Team (Late st Contact Info) Description 09/12/2023 Refill [place] [address] Kim Gonzalez MD [facility] [place] [address] Irritable bowel syndrome with constipation Social History [...] EST Office Visit Obstetrics [place] [address] Roma Lara MD [facility] DR OBSTETRICS [place] [address] 10/27/2024 11:00 AM EST TH Visit (TeleHealth) [place] [address] Kim Gonzalez MD [facility] [place] [address] documented as of this encounter Visit Diagnoses Diagnosis Irritable bowel syndrome with constipation Irritable bowel syndrome documented in this encounter Care Teams Entry Level Truck Driver Relationship Specialty Start Date End Date Dea Kc APR[place] [address] [place] [address] PCP - General Family Medicine 04/12/23 documented as of this encounter
--- OUTSIDE RECORDS SUMMARY | 2024-07-04 02:59 | XMS_ITS | Encounter Summary ---
Author Organization [facility] [place] [address] Care Team Providers Care Corporate Job Titles Name Role Phone Dea Kc APRN Primary Care Provider [phone] Encounter Details Date Type Department Care Team (Latest Contact Info) Description 08/16/2023 Travel Social History Tobacco Use Types Packs/Day [...] EST Office Visit Obstetrics [place] [address] Roma Lara MD [facility] DR OBSTETRICS [place] [address] 10/27/2024 11:00 AM EST TH Visit (TeleHealth) [place] [address] Kim Gonzalez MD [facility] [place] [address] documented as of this encounter Visit Diagnoses Not on filedocumented in this encounter Care Teams Corporate Job Titles Relationship Specialty Start Date End Date Dea Kc, PLANT MAINTENANCE SUPERVISOR [facility] [place] [address] PCP - General Family Medicine 04/12/23 documented as of this encounter
--- OUTSIDE RECORDS SUMMARY | 2024-07-04 02:59 | XMS_ITS | Encounter Summary ---
Author Organization [facility] [place] [address] Care Team Providers Care Development And Housing Director Name Role Phone Dea Kc APRN Primary Care Provider [phone] Reason for Visit * Reason Comments Abdominal Pain * Auth/Cert (Routine) Specialty Diagnoses / Procedures Referred By Contac t Referred To Contact Diagnoses Vaginal discharge Procedures EMERGENCY IPI Yue Lassiter MD [facility] OBSTET[place]ICS [place] [address] [facility] Referral ID Status Reason Start Date Expiration Date Visits Re quested Visits Authorized [id number] 1 1 Encounter Details Date Type Department Care Team (Latest Contact Info) Description 10/24/2023 12:28 PM EST - 10/26/2023 11:39 AM EST Hospital Encounter Hematology/Oncology Unit Level 1 [place] [id number] Yvonne Oquendo MD [facility] [place] [address] Yue Lassiter MD [facility] OBSTETRICS [place] [address] Surgical wound dehiscence, initial encounter Discharge Disposition: Home Social History Tobacco Use Types Packs/Day Years Used Date Smoking Tobacco: Former Cigarettes Smokeless Tobacco: Never Alcohol Use Standard Drinks/Week Comments Not Currently 0 (1 standard drink = 0.6 oz pur e alcohol) DH IPV Inpatient Questions Answer Date Recorded Does [...] Sign Reading Time Taken Comments Blood Pressure 128/81 10/26/2023 7:54 AM EST Pulse 94 10/25/2023 3:33 PM EST Temperature 36.8 ??C (98.2 ??F) 10/26/2023 7:54 AM ES T Respiratory Rate 18 10/26/2023 7:54 AM EST Oxygen Saturation 100% 10/26/2023 7:54 AM EST Inhaled Oxygen Concentration - - Weight 48.1 kg (106 lb) 10/24/2023 12:13 PM EST Height 157.5 cm (5' 2) 10/24/2023 12:13 PM EST Body Mass Index 19.39 10/24/2023 12:13 PM EST documented in this encounter Discharge Summaries * Dea Beth, DO - 10/26/2023 10:51 AM EST Discharge Summary Patient Name: Yumi Peraza Patient Age: 53 y.o. Language: Grenadian Race: White Ethnicity: Not nor Admit date: 10/24/2023 Discharge date and time: 10/26/23 Attending Physician: Yue Lassiter MD Discharge Physician: Noel Viera MD Follow-up Recommendations for Providers: Future Appointments Date Time Provider Department Center 10/29/2023 8:30 AM Kim Gonzalez MD [facility] GASTRO [facility] 11/02/2023 11:20 AM Dea Beth DO [facility] OBG 5L [facility] 01/04/2024 11:00 AM Roma Lara MD [facility] OBG 5L [facility] Inpatient Provider Contact Information: Aylin MADDOX Discharge [...] 10 mg disintegrating tablet Commonly known as: Maxalt-FISHER TROLL LINE Take 10 mg by mouth as needed. [...] survey, vaginal cuff closure Gynecology phone number: [phone]. After hours and on weekends please call hospital hemming and tacking machine operator [phone] and ask for Oral Surgeon automotive salesperson. Call your doctor if you develop: --A [...] 8:30 AM Kim Gonzalez MD Gastroenterology at [facility] Arrive at: Home [phone] To view instructions for your video visit, click here, or visit this website: [email or web address] If you have not previously downloaded the [facility] patient portal software, Lipocalyx, or the ZoLearn with Homer polo, please do so by clicking one [...] Dea Beth DO Obstetrics and Gynecology at [facility] Arrive at: Wind Turbine Blade Repair Technician Area [phone] 01/04/2024 11:00 AM Roma Lara MD Obstetrics and Gynecology at [facility] Arrive at: [employer] Turbine Blade Repair Technician Area [phone] Discharge References/Attachments None Provider Contact Information: Dea Kc, ERICK [phone] Dea Beth DO, PGY-2 Obstetrics and Gynecology 10/26/23 documented in this encounter Discharge Instructions * Patient Instructions* Dea Beth DO - 10/26/2023 10:37 AM EST PATIENT DISCHARGE INSTRUCTIONS - Laparoscopic abdominal washout and bowel survey, vaginal cuff closure Gynecology phone number: [phone]. After hours and on weekends please call hospital hemming and tacking machine operator [phone] and ask for Oral Surgeon automotive salesperson. Call your doctor if you develop: --A [...] 50 mg by mouth daily. 05/31/2017 rizatriptan (MAXALT-FISHER TROLL LINE) 10 mg Tablet, Rapid Dissolve Take 10 [...] y.o. woman s/p diagnostic laparoscopy by general LAPEL BASTER, bowel evlauation by general surgery, and vaginal [...] today. MISHA CAMPOS MD * Dea Beth, - 10/26/2023 8:30 AM EST SOAP Note [...] laparoscopy. This patient was discussed with attending Client Support Associate physician, Dr. Viera. Dea Beth DO, PGY-2 Obstetrics and Gynecology 10/26/23 * Dea Beht DO - 10/26/2023 6:02 AM EST Gynecology [...] In: 3280 [I.V.:2803; IV Piggyback:477] Out: 2054 [Urine:0; Blood:5] I/O this shift: In: 400 [P.O.:400] [...] gram positive cocci Assessment and Plan: Yumi Pearza is an 53 y.o. woman s/p above [...] for PO outpatient, page Dr. Light at 4593 after 8AM Endocrine: none Psychiatry: #Anxiety Not [...] that both blanca and can come and supervisor picking crew the extra personal vehicle here Code Status: Full Code This patient was discussed with attending Client Support Associate physician, Dr. Viera. Dea Beth DO, PGY-2 Obstetrics and Gynecology 10/26/23 * Linda Ramesh MD - 10/25/2023 9:34 AM EST Urogynecology - Progress Note Yumi Peraza is a 53 y.o. woman s/p diagnostic laparoscopy by general LAPEL BASTER, bowel evlauation by general surgery, and vaginal [...] discharge timing. I reached out to primary LAPEL BASTER team to mashpee back to patient to answer these questions. [...] Note Admission Date: 10/24/2023 Primary Team: Benign Pneumatic Tester Mechanic [id number] ID: Yumi Peraza is a 53 [...] If you have any questions, please page [phone]. Consult service will sign-off. Lorena Hidalgo MD 10/25/2023 Acute Care Surgery Service p.3000 Attending Addendum I have seen and examined [...] Gynecology Post Operative Progress Note ID: Yumi McnallyralElodia is an 53 y.o. woman who is [...] white changes around the cuff. Subjective: Yumi McnallyHerberthe reports that is doing well. Pain is currently a 4/10, located diffusely in the abdomen but more so in the lower abdomen. Her pain has been well controlled with acetaminophen srx2p03 mg oxycodone overnight. She does notice some [...] colace per patient preference -- Page pharmacy 0899 for alteratives to Motilin -- Changed Miralax [...] that both blanca and can come and supervisor picking crew the extra personal vehicle here Code Status: Full Code This patient was discussed with attending Client Support Associate physician, Dr. Viera. Dea Beth DO, PGY-2 [...] patient was seen and discussed with attending Client Support Associate physician. Dea Beth DO, PGY-2 Obstetrics and [...] documented in this encounter ED Notes * Tarun Hudson MD - 10/24/2023 1:17 PM EST ED Resident Note HPI: Yumi Chuy Peraza is a 53 y.o. female with [...] src: Tympanic SpO2: 100 % O2 Device: RA O2 Flow Rate (L/min): n/a Physical Exam [...] discharge. Deferredspeculum exam until after speaking with LAPEL BASTER. LAPEL BASTER recommended performing speculum exam and obtainingCT A/P 1320 Additionally giving sepsis bundle with IV fluids, blood cultures, lactate, Zosyn, and tylenol for pain. 1445 Pelvic exam performed, vaginal canal filled with green discharge and cervical cuff hyperemic and inflamed. Awaiting CT A/P 1612 Pelvic exam performed again by LAPEL BASTER resident, what was previously thought to be [...] 10/24/23 1329 lactated ringers infusion (BMI & Winigan BW Available for Patient) See Hyperspace for full Linked Orders Report. 500 mL over 15 Minutes Intravenous ONCE 10/24/23 1412 10/24/23 1313 lactated ringers infusion (BMI & Winigan BW Available for Patient) See Hyperspace for full Linked Orders Report. 1,000 mL over 15 Minutes Intravenous ONCE 10/24/23 1357 Procedures Assessment and Plan: 53 y.o. female with with PMH of total hysterectomy with urethral sling placement in April 2023 whopresents to the Emergency Department with acute onset abdominal pain. Based on second pelvic exam performed by LAPEL BASTER resident, patient with likely dehisced vaginal cuff with herniation of bowel into the vaginal canal. Zosyn already given, additional 1L LR ordered, type and screen ordered. Patient to be urgently taken to the OR for repair. The visit findings, diagnosis, and care plan were discussed with the patient. Tarun Hudson MD Resident 10/24/23 7975 Associated attestation - Yvonne Oquendo MD - [...] CT abd/pelvis - ordered but canceled per LAPEL BASTER after they saw the patient. EKG NSR. No ST elevation/depression. QTc 426. Possible right atrial enlargment. Pneumatic Tester Mechanic consulted early on in visit. They saw [...] surrogate would be surrogate decision maker [place] decision [place] law. (Only good for 180 days) Any patient receiving care in [place] must abide by [place] law. The hierarchy for surrogate decision making [...] (i) The agent with financial power of civil rights attorney or a conservator appointed in accordance with RSA 464-A. (j) The guardian of the patient???s estate. Advance Care Planning: Attempt Cardiopulmonary Resuscitation - Inpatient <no information> -Advanced Directive: Other (No AD on file.) Current Functional Ability: Assistive Person Functional Status Prior to Admission: Independent Home Address listed as: [address] [place] [phone] Social & Family Supports: All names listed [...] Insurance: N/A ; Prescription Coverage: Preferred Pharmacy: [facility] - [place], [place] - [address] [place] [id number] Primary Care Provider listed: Dea Kc, ERICK [phone] Potential Needs for Transition of Care: none [...] with transition of care planning. PB Roa, surety bond agent of Care Management Pager [phone] * Plan of Care - Ángel Tidwell [...] afternoon, MD notified of patient request for RECOVERY ADVOCATE medications for GI issues. MD aware stating [...] Operative Note Patient Name: Yumi Peraza : [id number] MR#: [id number] Case Date: 10/24/2023 Surgeon: Surgeon(s) and Role: [...] Case. The patient was taken by the LAPEL BASTER resident to the operating room with IV [...] sample of the intra-abdominal purulent fluid. The LAPEL BASTER team transferred care to the General Surgery team. General Surgery performed their evaluation of the bowel. Urogynecology performed vaginal cuff closure. The LAPEL BASTER team remained in the OR and observed the General Surgery and Urogynecology procedures. The LAPEL BASTER team resumed care. The vaginal cuff was re-examined and was noted to be intact without any necrotic tissue. The abdomen was irrigated with ~6L NS using the suction machined parts quality inspector. The abdomen was desufflated and all instruments [...] Operative Note Patient Name: Yumi Peraza : [id number] MR#: [id number] Case Date: 10/24/2023 Surgeon: Surgeon(s) and Role: [...] Operative Note Patient Name: Yumi Peraza : [id number] MR#: [id number] Case Date: 10/24/2023 Surgeon: Surgeon(s) and Role: [...] Operative Note Patient Name: Yumi Peraza : [id number] MR#: [id number] Case Date: 10/24/2023 Surgeon: Surgeon(s) and Role: [...] Campos MD - 10/24/2023 4:39 PM EST [facility] Urogynecology Operative Note Patient Name: Yumi Peraza : [id number] MR#: [id number] Case Date: 10/24/2023 Preoperative diagnosis: Vaginal cuff [...] Correa MD - 10/24/2023 4:39 PM EST [facility] Operative Note Patient Name: Yumi Peraza : [id number] MR#: [id number] Case Date: 10/24/2023 Surgeon: Panel 2: * [...] portion Surgical Closure: case handed back to LAPEL BASTER team Disposition: case handed back to LAPEL BASTER team Condition: case handed back to LAPEL BASTER team (Please see the Surgical Encounter Summary [...] vision. I discussed the case with the overlock collar setter team who were not planning laparotomy for [...] between bowel loops. I recommended to the LAPEL BASTER team that she would needa thorough and complete washout given the extent of purulent contamination. There did not appear lisa any injuries to the bowel from our manipulation to inspect it. I then handed the case back to the LAPEL BASTER team to further proceed. Surgical Infection Prevention Bundle Used? N/A Attestation: Case Date: 10/24/2023 I was present and I participated during the entire procedure (does not need to include opening and closing). For clarification I was present for the entirety of the above mentioned general surgery portion of the procedure. I was not present for the initial LAPEL BASTER entry into the abdomen nor the remainder of the LAPEL BASTER procedure. Sharifa Correa MD 10/25/2023 documented in this encounter Plan of Treatment Upcoming Encounters Date Type Department Care Team (Late st Contact Info) Description 07/17/2024 1:00 PM EST Office Visit Obstetrics [place] [address] Roma Lara MD [facility] DR OBSTETRICS [place] [address] 10/27/2024 11:00 AM EST TH Visit (TeleHealth) Gastroenterology at [facility] [place] [phone] Kim Gonzalez MD [facility] [place] [address] documented as of this encounter Procedures Procedure [...] 10/25/2023 4:44 AM EST TYPE AND SCREEN ([facility]/CGP/OSVALOD) STAT 10/25/2023 4:44 AM EST SURGICAL PATHOLOGY REPORT Routine 10/24/2023 5:59 PM EST SPECIMEN TO PATHOLOGY Routine 10/24/2023 5:59 PM EST HC GRAM STAIN FOR BACTERIA Routine 10/24/2023 5:08 PM EST ABSCESS/WOUND ASPIRATE CULTURE Routine 10/24/2023 5:08 PM EST BLOOD GAS ARTERIAL POC Routine 10/24/2023 4:22 PM EST Repair Of Vagina ([id number]) 10/24/2023 4:10 PM EST bowel Lap, Diagnostic Abdomen ([id number]) 10/24/2023 4:10 PM EST bowel Exploration Of Abdomen (25145) 10/24/2023 4:10 PM EST bowel L-LACTATE2 WHOLE [...] 4:21 AM EST) Neutrophil % 42.0 % [facility] Neutrophil Absolute 1.88 1.70 - 6.10 x10(3)/[facility] LAB[facility] Lymph % 44.4 % [facility] Lymphocytes Abs 2.0 0.9 - 3.2 x10(3)/[facility] Monocyte % 9.4 % [facility] Monocyte Abs 0.4 0.3 - 0.9 x10(3)/[facility] Eos % 3.3 % [facility] Eosinophils Abs 0.2 0.0 - 0.4 x10(3)/[facility] Basophil % 0.7 % [facility] Baso Absolute 0.0 0.0 - 0.1 x10(3)/mcL [facility] Immature Gran % 0.20 % [facility] Comment: Immature granulocytes(IG's)percentage and absolute count will include metamyelocytes, myelocytes, and promyelocytes. Blood smears from CBCs yielding IG's will be scanned manually for concordance. If this scan disagrees with the automated IG or if promyelocytes are noted, a manual differential will be performed. Immature Gran Absolute 0.01 0.00 - 0.04 x10(3)/[facility] Blood 10/26/2023 4:21 AM EST 10/26/2023 4:39 AM EST Narrative Resulting Agency Comment Spec In Lab Silva Reaves MD HEMATOLOGY ORDERABLE S Performing Organization Address City/State/[facility] Co de Phone Number [facility] [address] * (ABNORMAL) Hemogram (10/26/2023 4:21 AM EST) White Blood Cell 4.5 4.0 - 9.5 x10(3)/mc L [facility] Red Blood Cell 3.61(L) 4.00 - 5.21 x10(6)/mc L [facility] Hemoglobin 11.9 11.7 - 15.5 g/dL [facility] Hematocrit 34.6(L) 35.7 - 45.8 % [facility] Mean Cell Volume 95.8(H) 82.6 - 94.4 fL [facility] Mean Cell Hemoglobin 33.0(H) 27.1 - 32.0 pg [facility] Mean Cell Hemoglobin Concentration 34.4 31.7 - 35.0 g/dL [facility] Platelet 146 145 - 357 x10(3)/mc L [facility] RDW Standard Deviation 39.8 37.0 - 46.0 fL [facility] RDW coefficient of variation 11.3(L) 11.5 - 14.1 % [facility] Mean Platelet Volume 10.2 7.6 - 12.9 fL [facility] NRBC% auto 0.0 % [facility] NRBC Absolute 0.000 0.000 - 0.000 x10(3)/mc L [facility] Blood 10/26/2023 4:21 AM EST 10/26/2023 4:39 AM EST Narrative Resulting Agency Comment Spec In Lab Silva Reaves MD HEMATOLOGY ORDERABLE S Performing Organization Address [facility] de Phone Number [facility] [place] [address] * Gentamicin level, random (10/25/2023 7:26 AM EST) Gentamicin, 6-14 hour Post Dose 1.5 mg/L [facility] Comment:This is a 6-14 hour post dose level (7mg/kg dosing only). Blood 10/25/2023 7:26 AM EST 10/25/2023 7:38 AM EST Narrative Resulting Agency Comment Spec In Lab Yue Lassiter MD CHEMISTRY ORDERAB LES Performing Organization Address [facility] Co de Phone Number [facility] [address] * ABORH Recheck Status (10/25/2023 4:44 AM EST) ABORH Recheck Order Order Placed [facility] ABORH Type Recheck Completed [facility] Blood 10/25/2023 4:44 AM EST 10/25/2023 5:27 AM EST Narrative Resulting Agency Comment Spec In Lab Tarun Hudson MD BLOOD BANK LAB OR DERABLES Performing Organization Address [facility] Co de Phone Number [facility] [place] [address] * Differential, Automated (10/25/2023 4:44 AM EST) Neutrophil % 66.7 % [facility] Neutrophil Absolute 4.27 1.70 - 6.10 x10(3)/[facility] Lymph % 23.6 % [facility] Lymphocytes Abs 1.5 0.9 - 3.2 x10(3)/[facility] Monocyte % 8.6 % [facility] Monocyte Abs 0.6 0.3 - 0.9 x10(3)/[facility] Eos % 0.3 % [facility] Eosinophils Abs 0.0 0.0 - 0.4 x10(3)/[facility] Basophil % 0.5 % [facility] Baso Absolute 0.0 0.0 - 0.1 x10(3)/[facility] Immature Gran % 0.30 % [facility] Comment: Immature granulocytes(IG's)percentage and absolute count will include metamyelocytes, myelocytes, and promyelocytes. Blood smears from CBCs yielding IG's will be scanned manually for concordance. If this scan disagrees with the automated IG or if promyelocytes are noted, a manual differential will be performed. Immature Gran Absolute 0.02 0.00 - 0.04 x10(3)/[facility] Blood 10/25/2023 4:44 AM EST 10/25/2023 4:53 AM EST Narrative Resulting Agency Comment Spec In Lab Dea Beth DO HEMATOLOGY ORDERABLE S [facility] [place] [address] * (ABNORMAL) Hemogram (10/25/2023 4:44 AM EST) White Blood Cell 6.4 4.0 - 9.5 x10(3)/ L [facility] Red Blood Cell 3.56(L) 4.00 - 5.21 x10(6)/ L [facility] Hemoglobin 11.7 11.7 - 15.5 g/dL [facility] Hematocrit 35.6(L) 35.7 - 45.8 % [facility] Mean Cell Volume 100.0(H) 82.6 - 94.4 fL [facility] Mean Cell Hemoglobin 32.9(H) 27.1 - 32.0 pg [facility] Mean Cell Hemoglobin Concentration 32.9 31.7 - 35.0 g/dL [facility] Platelet 127(L) 145 - 357 x10(3)/ L [facility] RDW Standard Deviation 41.8 37.0 - 46.0 fL [facility] RDW coefficient of variation 11.5 11.5 - 14.1 % [facility] Mean Platelet Volume 10.2 7.6 - 12.9 fL [facility] NRBC% auto 0.0 % [facility] NRBC Absolute 0.000 0.000 - 0.000 x10(3)/mc L [facility] Blood 10/25/2023 4:44 AM EST 10/25/2023 4:53 AM EST Narrative Resulting Agency Comment Spec In Lab Dea Beth DO HEMATOLOGY ORDERABLE S Performing Organization Address [facility] Co de Phone Number [facility] [address] * Type and screen ([facility]/OSVALDO) (10/25/2023 4:44 AM EST) ABORH Type B NEGATIVE [facility] Patient BB History Not Found [facility] Expires at 2359 on: 10/28/2023 [facility] Ab Screen Interp Negative [facility] Blood 10/25/2023 4:44 AM EST 10/25/2023 4:44 AM EST Narrative [facility] - 10/25/2023 4:44 AM EST This Type and Screen result is only valid at the [facility] Resulting Agency Comment Spec In Lab Yue Lassiter MD BLOOD BANK LAB OR DERABLES Performing Organization Address City/[facility]/ZIP Co de Phone Number [facility] [place] [address] * Surgical Pathology Report (10/24/2023 5:59 PM EST) Final Diagnosis [id number] ? Location: L1WD; 0110; A The signing [...] Verified: ??11/08/2023 9:07 ?? Pathologist Performed at: ??-[facility] Dept. of Pathology, [place] [address] Fashion Model: Jennifer Medina MD, FCAP, ??[place] Certificate: [id number] ADDITIONAL STUDIES Immunohistochemistry Studies: Formalin-fixed, paraffin-embedded tissue [...] Block ? Antibody ?Result (Positive/Negative) A1 ? [id number] ? Positive in epithelial cells Special stains [...] barney-hightower tissue, partially covered with ??mucosa. Sections/Processing: Surveyor Instrument Assistant sections in 1 cassette labeled A1. ??AOO 11/08/2023 9:07 AM [facility] VAGINAL STRUCTURE / Unknown 10/24/2023 5:59 PM EST 10/24/2023 5:59 PM EST Yue Lassiter MD PATHOLOGY/CYTOLOG Y ORDERABLES Performing Organization Address [facility] Co de Phone Number [facility] [address] [place] [address] * Specimen to Pathology (10/24/2023 5:59 PM EST) AP Specimen 10/24/2023 5:59 PM EST 10/24/2023 5:59 PM EST Narrative [facility] - 10/24/2023 5:59 PM EST Specimen requisition ordered. ??Separate Pathology report to follow Yue Lassiter MD PATHOLOGY/CYTOLOG Y ORDERABLES Performing Organization Address [facility] Co de Phone Number [facility] [place] [address] * (ABNORMAL) Abscess/Wound Aspirate Culture (10/24/2023 5:08 PM EST) Abscess/Wound Aspirate Culture No growth(A) [facility] Reviewed Stain Note: This is a corrected report Many Neutrophils seen No microorganisms seen. Previously reported as: Many Neutrophils seen Few Gram Positive Cocci seen (A) [facility] Gram Stain Many Neutrophils seen Few Gram Positive Cocci seen (A) [facility] Organism Gram Positive Cocci(A) [facility] Deep Wound ABDOMEN / Unknown 10/24/2023 5:08 PM EST 10/24/2023 6:41 PM EST Comment:Peritoneal fluid Narrative Resulting Agency Comment Spec In Lab Yue Lassiter MD MICROBIOLOGY - GE NERAL ORDERABLES Performing Organization Address [facility] Co de Phone Number [facility] [place] [address] * (ABNORMAL) BLOOD GAS 2 ARTERIAL (10/24/2023 4:22 PM EST) pH, Arterial 7.48(H) 7.35 - 7.45 [facility] [facility] PCO2, Arterial 35 35 - 45 mmHg [facility] PO2, Arterial 466(H) 85 - 104 mmHg [facility] Bicarbonate, Arterial 25.7 20.0 - 26.0 mmol/L [facility] Base Excess, Arterial 2.2 -3.0 - 3.0 mmol/L [facility] Hgb Blood Gas 13.4 11.7 - 15.5 g/dL [facility] Oxyhemoglobin, Arterial 98.9(H) 94.0 - 97.0 % [facility] Carboxyhemoglob in, Arterial 0.5 % [facility] Comment: Nonsmokers: 0.5-1.5% COHB Smokers: Variable, but usually less than 10% Toxic: 20-30% COHB Lethal: Greater than 60% COHB Methemoglobin, Arterial 0.3 <=1.5 % [facility] Na Whole Blood 139 135 - 145 mmol/L [facility] K Whole Blood 3.6 3.5 - 5.0 mmol/L [facility] Comment: Please note: Patients with WBC >100,000 may have falsely elevated Potassium levels. Contact the Clinical Chemistry Laboratory if there are any questions. ICa Whole Blood 1.15 1.15 - 1.33 mmol/L [facility] Comment: Note: ??Total bilirubin higher than 20 mg/dL may lead to falsely low ionized calcium. CL Whole Blood 107 98 - 107 mmol/L [facility] Gluc Whole Bld 104 65 - 199 mg/dL [facility] Comment:Diabetes: >=200 mg/d L plus symptoms. Lactate WB 0.9 0.5 - 2.2 mmol/L [facility] Blood 10/24/2023 4:22 PM EST 10/24/2023 4:22 PM EST Yue Lassiter MD POINT OF CARE AURELIA T ORDERABLES [facility] [place] [address] * L-Lactate2 Whole Blood (10/24/2023 1:50 PM EST) Lactate WB 0.9 0.5 - 2.2 mmol/L [facility] Blood 10/24/2023 1:50 PM EST 10/24/2023 1:50 PM EST Yvonne Oquendo MD CHEMISTRY ORDERABLES Performing Organization Address City/[facility] Co de Phone Number [facility] [place] [address] * Blood culture (10/24/2023 1:30 PM EST) Blood Culture No growth at 5 days. [facility] Blood ANTECUBITAL REGION STRUCTURE / Unknown 10/24/2023 1:30 PM EST 10/24/2023 2:26 PM EST Comment:#2 Narrative Resulting Agency Comment Spec In Lab Yvonne Oquendo MD MICROBIOLOGY - BLOOD ORDERABLES Performing Organization Address [facility] Co de Phone Number [facility] [place] [address] * Blood culture (10/24/2023 1:30 PM EST) Blood Culture No growth at 5 days. [facility] Blood STRUCTURE OF LEFT FOREARM / Unknown 10/24/2023 1:30 PM EST 10/24/2023 2:25 PM EST Comment:#1 Narrative Resulting Agency Comment Spec In Lab Yvonne Oquendo MD MICROBIOLOGY - BLOOD ORDERABLES Performing Organization Address [facility] Co de Phone Number [facility] [place] [address] * Urinalysis with reflex Culture (10/24/2023 12:35 PM EST) Glucose, Urine Dipstick Negative Negative mg/dL [facility] Protein, Urine Dipstick Negative Negative mg/dL [facility] Bilirubin, Urine Dipstick Negative Negative mg/dL [facility] Comment: Clinical correlation required for positive Urine Bilirubin results as false positive may occur with some drugs and drug related products. If a false positive is suspected a serum total bilirubin should be considered if clinically indicated. Urobilinogen, Urine Dipstick Normal Normal mg/dL [facility] pH, Urn (dipstick) 6.0 5.0 - 8.0 [facility] Blood, Urine Dipstick Negative Negative mg/dL [facility] Ketone, Urine Dipstick Negative Negative mg/dL [facility] Nitrite, Urine Dipstick Negative Negative [facility] Leukocytes, Urine Dipstick Negative Negative mcL [facility] Appearance, Urine Dipstick Clear Clear [facility] Specific [place] Urine Automated 1.028 1.005 - 1.030 [facility] Color, Urine Dipstick Yellow Yellow [facility] Reflex to Culture No [facility] Clean Catch Urine 10/24/2023 12:35 PM EST 10/24/2023 12:47 PM EST Narrative Resulting Agency Comment Spec In Lab Yvonne Oquendo MD URINE ORDERABLES Performing Organization Address City/State/[facility] Co de Phone Number [facility] [place] [address] * (ABNORMAL) Differential, Automated (10/24/2023 12:32 PM EST) Neutrophil % 83.7 % [facility] Neutrophil Absolute 10.18(H) 1.70 - 6.10 x10(3)/mc L [facility] Lymph % 9.0 % [facility] Lymphocytes Abs 1.1 0.9 - 3.2 x10(3)/mc L [facility] Monocyte % 6.5 % [facility] Monocyte Abs 0.8 0.3 - 0.9 x10(3)/mc L [facility] Eos % 0.2 % [facility] Eosinophils Abs 0.0 0.0 - 0.4 x10(3)/mc L [facility] Basophil % 0.2 % [facility] Baso Absolute 0.0 0.0 - 0.1 x10(3)/mc L [facility] Immature Gran % 0.40 % [facility] Comment: Immature granulocytes(IG's)percentage and absolute count will include metamyelocytes, myelocytes, and promyelocytes. Blood smears from CBCs yielding IG's will be scanned manually for concordance. If this scan disagrees with the automated IG or if promyelocytes are noted, a manual differential will be performed. Immature Gran Absolute 0.05(H) 0.00 - 0.04 x10(3)/mc L [facility] Blood 10/24/2023 12:3 2 PM EST 10/24/2023 12:39 PM EST Narrative Resulting Agency Comment Spec In Lab Yvonne Oquendo MD HEMATOLOGY ORDERABLE S Performing Organization Address City/[facility] Co de Phone Number [facility] [place] [address] * (ABNORMAL) Hemogram (10/24/2023 12:32 PM EST) White Blood Cell 12.2(H) 4.0 - 9.5 x10(3)/mc L [facility] Red Blood Cell 4.74 4.00 - 5.21 x10(6)/mc L [facility] Hemoglobin 15.8(H) 11.7 - 15.5 g/dL [facility] Hematocrit 44.7 35.7 - 45.8 % [facility] Mean Cell Volume 94.3 82.6 - 94.4 fL [facility] Mean Cell Hemoglobin 33.3(H) 27.1 - 32.0 pg [facility] Mean Cell Hemoglobin Concentration 35.3(H) 31.7 - 35.0 g/dL [facility] Platelet 191 145 - 357 x10(3)/mc L [facility] RDW Standard Deviation 38.9 37.0 - 46.0 fL [facility] RDW coefficient of variation 11.2(L) 11.5 - 14.1 % [facility] Mean Platelet Volume 10.1 7.6 - 12.9 fL [facility] NRBC% auto 0.0 % [facility] NRBC Absolute 0.000 0.000 - 0.000 x10(3)/mc L [facility] Blood 10/24/2023 12:3 2 PM EST 10/24/2023 12:39 PM EST Narrative Resulting Agency Comment Spec In Lab Yvonne Oquendo MD HEMATOLOGY ORDERABLE S Performing Organization Address [facility] Co de Phone Number [facility] [place] [address] * Lipase (10/24/2023 12:32 PM EST) Lipase 43 0 - 60 unit/L [facility] Blood 10/24/2023 12:3 2 PM EST 10/24/2023 12:39 PM EST Narrative Resulting Agency Comment Spec In Lab Yvonne Oquendo MD CHEMISTRY ORDERABLES Performing Organization Address [facility] Co de Phone Number [facility] [place] [address] * Hepatic Function Panel (10/24/2023 12:32 PM EST) Pathologist [facility] Protein, Total 7.2 6.1 - 8.0 g/dL [facility] Albumin 4.4 3.2 - 5.2 g/dL [facility] Aspartate Aminotransferase 25 0 - 30 unit/L [facility] Alanine Aminotransferase 23 0 - 30 unit/L [facility] Alkaline Phosphatase 52 35 - 105 unit/L [facility] Bilirubin, Total 0.6 0.2 - 1.3 mg/dL [facility] Bilirubin, Direct 0.2 0.0 - 0.3 mg/dL [facility] Blood 10/24/2023 12:3 2 PM EST 10/24/2023 12:39 PM EST Narrative Resulting Agency Comment Spec In Lab Yvonne Oquendo MD CHEMISTRY ORDERABLES Performing Organization Address [facility] Co de Phone Number [facility] [place] [address] * (ABNORMAL) Basic Metabolic Panel (non-fasting) (10/24/2023 12:32 PM EST) Pathologist [facility] Glucose 97 65 - 199 mg/dL [facility] Comment:Diabetes: >=200 mg/d L plus symptoms Blood Urea Nitrogen 15 8 - 18 mg/dL [facility] Creatinine 0.68(L) 0.70 - 1.20 mg/dL [facility] Sodium 143 135 - 145 mmol/L [facility] Potassium 3.8 3.5 - 5.0 mmol/L [facility] Comment: Please note: ??Patients with WBC >100,000 may have falsely elevated Potassium levels. ??For accurate Potassium quantification in these patients send serum separator tube (gold top) for subsequent determinations. ??Contact the Clinical Chemistry Laboratory if there are any questions. Chloride 104 98 - 107 mmol/L [facility] Carbon Dioxide 28 22 - 31 mmol/L [facility] Anion Gap 11 5 - 15 mmol/L [facility] Calcium 9.7 8.5 - 10.5 mg/dL [facility] Est Glomerular Filtration Rate 105 >=60 mL/min/1. 73 m?? [facility] Comment: This patient's estimated GFR was [...] Oquendo MD CHEMISTRY ORDERABLES Performing Organization Address City/State/[facility] Co de Phone Number [facility] [place] [address] * EKG 12 Lead (10/24/2023 12:21 PM EST) Ventricular rate 97 BPM MUSE SYSTEM Atrial Rate 97 BPM MUSE SYSTEM P-R Interval 170 ms MUSE SYSTEM QRS Duration 70 ms MUSE SYSTEM Q-T Interval 336 ms MUSE SYSTEM QTC Calculated (Bezet) 426 ms MUSE SYSTEM Calculated P [place] 75 degrees MUSE SYSTEM Calculated R [place] 44 degrees MUSE SYSTEM Calculated T [place] 49 degrees MUSE SYSTEM INTERPRETATION Normal sinus rhythm Possible Left atrial enlargement Borderline ECG No previous ECGs available Confirmed by MD Serafin, Roro (Shayy) on 10/27/2023 3:26:01 PM MUSE SYSTEM 10/24/2023 12:2 1 PM EST 10/27/2023 3:26 PM EST Yvonne Oquendo MD ECG ORDERABLES MUSE SYSTEM documented in this encounter Visit Diagnoses Diagnosis Vaginal discharge- Primary Leukorrhea, not specified as infective Surgical wound dehiscence, initial encounter documented in this encounter Admitting Diagnoses Diagnosis Vaginal discharge Leukorrhea, not specified as infective documented in this encounter Administered Medications Inactive Administered Medications - up to 3 most recent administrations Medication Order MAR Action Action Date Dose Rate Site acetaminophen (Tylenol) tablet 650 mg 650 mg, Oral, EVERY 6 HOURS PRN, Starting on Sun10/24/23 at 1305, Until Sun10/24/23 at 2143, Pain, Fever, Maximum dose of acetaminophen is 4,000 mg from all sources in 24 hours. When ordered for pain, acetaminophen should be given even when other ordered pain medications are indicated. , Routine Given 10/24/2023 1:54 PM EST 650 mg acetaminophen (Tylenol) tablet 975 mg 975 mg, [...] 6:14 PM EST 1,000 mg 400 mL/hr clindamycin (Cleocin) 300 mg in dextrose 5% 50 mL infusion 300 mg, Intravenous, EVERY 8 HOURS, First dose on Sun10/24/23 at 2015, Until Discontinued, Administer over 10 Minutes, Indication for (Active or Suspected): Other (See comment) New Bag 10/26/2023 5:06 AM EST 300 mg 300 mL/hr New Bag 10/25/2023 7:37 PM EST 300 mg 300 mL/hr New 10/25/2023 1:16 PM EST 300 mg 300 mL/hr enoxaparin (Lovenox) (40 mg/0.4 mL) subcutaneous injection 40 mg 40 mg, Subcutaneous, NIGHTLY, First dose on Sun10/25/23 at 2100, Until Discontinued, Routine Given 10/25/2023 [...] for (Active or Suspected): Other (see comments) 10/25/2023 8:20 PM EST 240.4 mg 106 mL/hr New 10/24/2023 9:01 PM EST 240.4 mg 106 [...] if unable to take P.O. medication, Routine Given 10/25/2023 10:50 AM EST 0.2 mg HYDROmorphone (Dilaudid) (2 mg/mL) multi-dose injection solution 0.4 mg 0.4 mg, Intravenous, EVERY 10 MIN PRN, Starting on Sun10/24/23 at 1836, Until Sun10/24/23 at 2115, Pain, For Mild to Moderate Pain (1-5 out of 10), Hold for respiratory rate less than 10 per minute. Maximum dose 3 mg over one hour including administrations in the OR. If multiple pain medications are ordered, start with HYDROmorphone and use fentaNYL for breakthrough pain., PACU Recovery, Routine Given 10/24/2023 7:42 PM EST 0.4 mg HYDROmorphone (Dilaudid) (2 mg/mL) multi-dose injection solution 0.6 mg 0.6 mg, Intravenous, EVERY 10 MIN PRN, Starting on Sun10/24/23 at 1836, Until Sun10/24/23 at 6, Pain, For Moderate to Severe Pain (6-10 out of 10), Hold for respiratory rate less than 10 per minute. Maximum dose 3 mg over one hour including administrations in the OR. If multiple pain medications are ordered, start with HYDROmorphone and use fentaNYL for breakthrough pain., PACU Recovery, Routine Given 10/24/2023 7:53 PM EST 0.6 mg lactated ringers infusion 1,000 mL, Intravenous, ONCE, 1 dose, On Sun10/24/23 at 1314, IV Fluid bolus for Sepsis; Patient BMI is 19.4 kg/m2, (< or = 30 kg/m2) so dosing based on ACTUAL body weight. Current Body Weight of 48.08 kg x 30 mL/kg/dose = 1,442 mL, rounded to 1,500 mL for target resuscitation volume. New Bag 10/24/2023 1:43 PM EST 1,000 mLs lactated ringers infusion 500 mL, Intravenous, ONCE, 1 dose, On Sun10/24/23 at 1329, See first of linked orders for information on IV Fluid Bolus Dosing New Bag 10/24/2023 1:57 PM EST 500 mLs 999 mL/hr lactated ringers infusion 1,000 mL, at 100 mL/hr, Intravenous, CONTINUOUS, Starting on Sun10/24/23 at 2230, Until Sun10/25/23 at 0706 New Bag 10/25/2023 5:58 AM EST 1,000 mLs 100 mL/hr Continued Bag 10/24/2023 10:10 PM EST 1,000 mLs 100 mL/hr ondansetron (pf) (Zofran) (2 mg/mL) injection 4 [...] 0700, Until Sun10/26/23 at 1340, Irritation, Routine piperacillin-tazobactam (Zosyn) 4.5 g vial attach to sodium chloride 0.9% 100 mL Mini-Bag Plus 4.5 g, Intravenous, ONCE, 1 dose, On Sun10/24/23 at 1314, Administer over 0.5 Hours, Warning Vesicant/Irritant Medication Do not administer or Y-site with lactated ringers., Indication for (Active or Suspected): Bacteremia/Sepsis New Bag 10/24/2023 1:46 PM EST 4.5 g 200 mL/hr polyethylene glycoL (Miralax) packet 17 g 17 [...] Pam Gambino, ALEN)1814 (Given - Provider: Marnie Torrez, ALEN) 0030 (Given - Provider: Ángel Tidwell, ALEN)0506 (Given - Provider: Ángel Tidwell, RN) ampicillin (Omnipen) 1 g vial attach to sodium chloride 0.9% 100 mL Mini-Bag Plus 1,000 mg (1 g), Intravenous, EVERY 6 HOURS SCHEDULED, First dose on Sun10/24/23 at 1915, Until Discontinued, Administer over 15 Minutes, Warning Vesicant/Irritant Medication , Indication for (Active or Suspected): Other (See comment) 1938 (New Bag - Provider: Dwain Torres RN)195 (Stopped - Provider: Dwain Torres RN) 0047 (New Bag - Provider: Sophia Gregorio RN)0109 (Stopped - Provider: Sophia Gregorio RN)0718 (New Bag - Provider: Sophia Gregorio RN)0733 (Stopped - Provider: Marnie Torrez, ALEN)1341 (New Bag - Provider: Anjelica Emerson RN)1459 (Stopped - Provider: Marnie Torrez, ALEN)1814 (New Bag - Provider: Marnie Torrez, ALEN)1855 (Stopped - Provider: Pam Gambino, ALEN) 0030 (New Bag - Provider: Ángel Tidwell RN)0045 (Stopped - Provider: Ángel Tidwell, ALEN)0604 (New Bag - Provider: Ángel Tidwell, ALEN)0619 (Stopped - Provider: Ángel Tidwell, ALEN) clindamycin (Cleocin) 300 mg in dextrose 5% 50 mL infusion 300 mg, Intravenous, EVERY 8 HOURS, First dose on Sun10/24/23 at 2015, Until Discontinued, Administer over 10 Minutes, Indication for (Active or Suspected): Other (See comment) 2011 (New Bag - Provider: Dwain Torres RN)2021 (Stopped - Provider: Dwain Torres RN) 0400 (New Bag - Provider: Sophia Gregorio RN)0436 (Stopped - Provider: Sophia Gregorio RN)1316 (New Bag - Provider: Anjelica Emerson RN)1459 (Stopped - Provider: Marnie Torrez RN)1937 (New Bag - Provider: Ángel Tidwell, RN)1947 (Stopped - Provider: Ángel Tidwell, RN) 0506 (New Bag - Provider: Ángel Tidwell, RN)0516 (Stopped - Provider: Ángel Tidwell, RN) enoxaparin (Lovenox) (40 mg/0.4 mL) subcutaneous injection 40 mg 40 mg, Subcutaneous, NIGHTLY, First dose on Hayley 10/25/23 at 2100, Until Discontinued, Routine 2019 (Given [...] Ángel Tidwell RN)2119 (Stopped - Provider: Ángel Tidwell, RN) lactated ringers infusion (COMPLETED)(Linked Group 2) [...] Glenna Huizar RN)1357 (Stopped - Provider: Glenna Huizar RN) lactated ringers infusion (COMPLETED)(Linked Group 2) 500 mL, Intravenous, ONCE, 1 dose, On Sun10/24/23 at 1329, See first of linked orders for information on IV Fluid Bolus Dosing 1357 (New Bag - Provider: Glenna Huizar RN)1412 (Stopped - Provider: Glenna Huizar RN) pantoprazole EC (Protonix) tablet 40 mg 40 mg, Oral, DAILY, First dose on Hayley 10/25/23 at 0900, Until Discontinued, DO NOT CRUSH OR OPEN, Routine 820 (Given - Provider: Marnie Torrez RN) 08 (Given - Provider: Marnie Torrez RN) piperacillin-tazobactam (Zosyn) 4.5 g vial attach to sodium chloride 0.9% 100 mL Mini-Bag Plus (COMPLETED) 4.5 g, Intravenous, ONCE, 1 dose, On Sun10/24/23 at 1314, Administer over 0.5 Hours, Warning Vesicant/Irritant Medication Do not administer or Y-site with lactated ringers., Indication for (Active or Suspected): Bacteremia/Sepsis 1346 (New Bag - Provider: Glenna Huizar RN)1416 (Stopped - Provider: Glenna Huizar RN) polyethylene glycoL (Miralax) packet 17 g 17 [...] may be given concomitantly for constipation., Routine 820 (Given - Provider: Marnie Torrez RN)2019 (Given - Provider: Ángel Tidwell RN) 0852 (Given - Provider: Marnie Torrez RN) sodium chloride 0.9 % (flush) (BD PosiFlush Normal Saline 0.9) flush 5 mL 5 mL, Intravenous, 2 TIMES DAILY, First dose on Sun10/24/23 at 2230, Until Discontinued, Routine 2206 (Given - Provider: Sophia Gregorio, ALEN) 0942 (Given - Provider: Marnie Torrez, RN)2019 (Given - Provider: Ángel Tidwell, ALEN) 0853 (Given - Provider: Marnie Torrez, ALEN) Continuous Medication Order 10/24/2023 10/25/2023 10/26/2023 lactated ringers infusion (CANCELED) 1,000 mL, at 100 mL/hr, Intravenous, CONTINUOUS, Starting on Sun10/24/23 at 2230, Until Sun10/25/23 at 0706 2210 (Continued Bag - Provider: Sophia Gregorio RN) 0558 (New Bag - Provider: Sophia Gregorio RN)0942 (Stopped - Provider: Marnie Torrez, ALEN) PRN Medication Order 10/24/2023 10/25/2023 10/26/2023 acetaminophen [...] Until Sun10/26/23 at 1340, Intra-Operative (Intra-Procedure), Routine 1832 (Given - Provider: Yue Lassiter MD) Gentamicin Level - [facility] Order Reminder(Linked Group 1) NOT APPLICABLE, PER [...] Routine 1941 (See Alternative - Provider: Dwain Torres RN)1952 (Given - Provider: Dwain Torres RN) lidocaine (Xylocaine) 1% (10 mg/mL) injection 3 mg 3 mg (0.3 mL), Subcutaneous, ONCE PRN, 1 dose, Starting on Sun10/24/23 at 2135, Until Sun10/26/23 at 1340, for discomfort with PIV insertion, Routine ondansetron (pf) (Zofran) (2 mg/mL) injection 4 mg 4 mg, Intravenous, EVERY 8 HOURS PRN, Starting on Sun10/24/23 at 2135, Until Sun10/26/23 at 1340, Nausea 2200 (Given - Provider: Sophia Gregorio RN) oxyCODONE (Roxicodone) tablet 10 mg(Linked Group 4) 10 mg, Oral, EVERY 4 HOURS PRN, Starting on Sun10/24/23 at 1956, Until Sun10/26/23 at 1340, Pain, for pain scale 9-10, Routine 233 (See Alternative - Provider: Sophia Gregorio RN) 50 (See Alternative - Provider: Sophia Gregorio RN)927 (See Alternative - Provider: Marnie Torrez RN)1813 (Given - Provider: Marnie Torrez, ALEN) oxyCODONE (Roxicodone) tablet 5 mg(Linked Group 4) 5 mg, Oral, EVERY 4 HOURS PRN, Starting on Sun10/24/23 at 1956, Until Sun10/26/23 at 1340, Pain, for pain scale 6-8, Routine 233 (Given - Provider: Sophia Gregorio RN) 50 (Given - Provider: Sophia Gregorio RN)927 (Given - Provider: Marnie Torrez, ALEN)1813 (See Alternative - Provider: Marnie Torrez, ALEN) [...] Routine documented in this encounter Care Teams Development And Housing Director Relationship Specialty Start Date End Date Dea Kc, [employer] [address] [place] [address] PCP - General Family Medicine 04/12/23 documented as of this encounter
--- OUTSIDE RECORDS SUMMARY | 2024-07-04 02:59 | XMS_ITS | Encounter Summary ---
Author Organization [facility] [place] [address] Care Team Providers Care Branch Lending Officer Name Role Phone Dea Kc APRN Primary Care Provider [phone] Reason for Visit * Reason Onset Date Comments Medication Refill 12/02/2023 Encounter Details Date Type Department Care Team (Late st Contact Info) Description 12/02/2023 Ref[place] [address] Kim Gonzalez MD [facility] [place] [address] Irritable bowel syndrome with constipation Social History [...] EST Office Visit Obstetrics [place] [address] Roma Lara MD [facility] [address] OBSTETRICS [place] [address] 10/27/2024 11:00 AM EST TH Visit (TeleHealth) [place] [address] Kim Gonzalez MD [facility] [place] [address] documented as of this encounter Visit Diagnoses Diagnosis Irritable bowel syndrome with constipation Irritable bowel syndrome documented in this encounter Care Teams Branch Lending Officer Relationship Specialty Start Date End Date Dea Kc [place] [address] [place] [address] PCP - General Family Medicine 04/12/23 documented as of this encounter
--- OUTSIDE RECORDS SUMMARY | 2024-07-04 02:59 | XMS_ITS | Encounter Summary ---
Author Organization [facility] [place] [address] Care Team Providers Care Casing Inspector Name Role Phone Dea Kc APRN Primary Care Provider Reason for Visit * Reason Onset Date Comments Medication Refill 09/17/2023 Encounter Details Date Type Department Care Team (Late st Contact Info) Description 09/17/2023 Refill [place] [address] Kim Gonzalez MD [facility] [place] [address] Irritable bowel syndrome with constipation Social History [...] EST Office Visit Obstetrics [place] [address] Roma Lara MD [facility] [address] OBST[place] [address] 10/27/2024 11:00 AM EST TH Visit (TeleHealth) [place] [address] Kim Gonzalez MD [facility] [place] [address] documented as of this encounter Visit Diagnoses Diagnosis Irritable bowel syndrome with constipation Irritable bowel syndrome documented in this encounter Care Teams Casing Inspector Relationship Specialty Start Date End Date Dea Kc APRN [address] [place] [address] PCP - General Family Medicine 04/12/23 documented as of this encounter
--- OUTSIDE RECORDS SUMMARY | 2024-07-04 02:59 | XMS_ITS | Encounter Summary ---
[place] [address] Care Team Providers Care Automatic Coil Machine Operator Name Role Phone Dea Kc APRN Primary Care Provider [phone] Encounter Details Date Type Department Care Team (Late st Contact Info) Description 09/05/2023 Telephone [place] [phone] Kia Welch Social History Tobacco Use Types Packs/Day Years Used Date Smoking Tobacco: Former Cigarettes Smokeless Tobacco: Never Alcohol Use Standard Drinks/Week Comments Not Currently 0 (1 standard drink = 0.6 oz pur e alcohol) [facility] Inpatient Questions Answer Date Recorded [...] encounter Miscellaneous Notes * Telephone Encounter - Nara Colon - 09/05/2023 3:02 PM EST Time held 10/16 and 12/16 * Telephone Encounter - Kia Welch - 09/05/2023 2:19 PM EST Inbound/Outbound: OUTBOUND Spoke to Patient/Left Message: LVM Notes: LVM patient needs to reschedule appointment cancelled due to change in providers schedule DR. Gonzalez , 12/03/23, please reschedule to next available Return calls can be handled by: Any Gastro Secreatry documented in this encounter Plan of Treatment Upcoming Encounters Date Type Department Care Team (Late st Contact Info) Description 07/17/2024 1:00 PM EST Office Visit Obstetrics [place] [address] Roma Lara MD [facility] DR OBSTETRICS [place] [address] 10/27/2024 11:00 AM EST TH Visit (TeleHealth) [place] [address] Kim Gonzalez MD [facility] [place] [address] documented as of this encounter Visit Diagnoses Not on filedocumented in this encounter Care Teams Automatic Coil Machine Operator Relationship Specialty Start Date End Date Dea Kc [place] [address] PCP - General Family Medicine 04/12/23 documented as of this encounter
--- OUTSIDE RECORDS SUMMARY | 2024-07-04 03:00 | XMS_ITS | Encounter Summary ---
Author Organization [facility] [place] [address] Care Team Providers Care Cascara Bark Cutter Name Role Phone Dea Kc APRN Primary Care Provider [phone] Encounter Details Date Type Department Care Team (Latest Contact Info) Description 05/21/2023 11:00 AM EDT TH Visit (TeleHealth) [place] [phone] Kim Gonzalez MD [facility] DR [place] [address] Irritable bowel syndrome with constipation; Functional dyspepsia; [...] * Patient Instructions* Kim Gonzalez MD - 05/21/2023 11:00 AM EDT Recommendations Continue Trulance 3mg in the morning and Motegrity 2mg in the evening Try FDgard 1-2 per day for abdominal bloating, take prior to dinner meal. Can try instead of regular peppermint. Try for at least 4 weeks. Continue Miralax regularly, adjust as needed. Dulcolax as needed. Small, frequent meals as best as possible Hyoscyamine as needed for pain Stretching when able IBSRela if worsening constipation. Other options for us to consider For bloating specifically Buspar (relaxes the stomach), low dose only 5mg prior to dinner to help you eat more, not previously tried for anxiety Domperidone 10 to 20mg prior to dinner meal (from Brittny) to help with gastric emptying. Discussed. documented in this encounter Progress Notes * Kim Gonzalez MD - 05/21/2023 11:00 AM EDT [facility] Section of Gastroenterology and Hepatology Follow-up [...] GERD controlled on PPI Interval follow-up Doing ok recovering from surgery. Still having the same stomach aches. Trulance in the AM and Motegrity at night - 5 mo. For the most part helps her have a BM. Stools areloose. Feels sick and bloated until the meds kick in and it helps. Still getting filled with a lot of air and bloating after eating. Night time is still the worst time because it is her biggest meal. Still taking Miralax daily. At one point was taking Trulance and then waiting an hour or two to take Motegrity but the AM and PM seems better Has not had as much trouble with skipping bowel movements. Wakes up bloated - usually improved with a BM but sometimes not. Even bloating with shrimp which she ate for years Bloating can be worse if not eating also Dinner is bigger meal (chicken or fish, green beans mostly, rice - can eat some raw veggies and ok - sugar snap peas) though not every night later. Sometimes walks with dog. But movement doesn't always help. Tries gas meds, occasionally it will help. A couple of bites of an apple; grapes - a few. Peppermint didn't seem to be helping as much. Heat doesn't seem to change anything. Was taking hyoscyamine at night for stomach aches routinely - now feels like maybe got used to it and it wasn't helpful; going to take it only if having pain (doesn't help bloating) Review of systems: 14-point review of systems [...] constipated based on imaging. Started seeing a forest technology professor then. Does not recallever having hard stools [...] tired Patient Active Problem List Diagnosis Code Dyspepsia R10.13 Chronic constipation K59.09 Adjustment disorder F43.20 Irritable bowel syndrome with constipation K58.1 Current Outpatient Medications: oxyCODONE (Roxicodone) 5 mg tablet, Take 1 [...] for Pain., Disp: 30 tablet, Rfl: 1 prucalopride (Motegrity) 2 mg tablet, Take 1 tablet by mouth daily., Disp: 90 tablet, Rfl: 1 cholecalciferol, Vitamin D3, 25 [...] (Hair, skin, and nails), Disp: , Rfl: hyoscyamine SL (Levsin SL) 0.125 mg sublingual tablet, Take 1 tablet by mouth every 4 hours as needed for Cramping. Max 6 pills per day., Disp: 30 tablet, Rfl: 3 polyethylene glycoL [...] by mouth daily., Disp: , Rfl: rizatriptan (MAXALT-CERTIFIED FLEX ENDOSCOPE REPROCESSOR) 10 mg Tablet, Rapid Dissolve, Take 10 mg by mouth as needed., Disp: , Rfl: pantoprazole EC (Protonix) 40 mg Tablet, Delayed Release (E.C.), Take 40 mg by mouth daily., Disp: , Rfl: Allergies Allergen Reactions Fingolimod Venlafaxine Other (See Comments) Headache Amitriptyline Dimethyl Fumarate Fluoxetine Gabapentin exhaustion Glatiramer (Copolymer 1) Past Medical History: Diagnosis Date Abnormal uterine bleeding (AUB) Anxiety Dyspareunia due to medical condition in female Fibroid uterus H/O gastric ulcer Migraine w & wo aura Past Surgical History: Procedure Laterality Date APPENDECTOMY PRO CYSTOURETHROSCOPY N/A 04/25/2023 CYSTO, CYSTOURETHROSCOPY, DIAGNOSTIC (WRVU 1.53) performed by Roma Lara MD at [facility] OR PRO CYSTOURETHROSCOPY N/A 04/25/2023 CYSTO, CYSTOURETHROSCOPY, DIAGNOSTIC (WRVU 1.53) performed by Nicole Moses MD at [facility] MA[facility] OR PRO LAPAROSCOPY W TOT HYSTERECTUTERUS <=250 GRAM W TUBE/OVARY N/A 04/25/2023 LAPAROSCOPY, TOTAL HYST, UTERUS<250GMS, REM TUBE &/OR OVARY (WRVU 15) performed by Roma Lara MD at [facility] MA[facility] OR PRO SLING OPER STRES INCONTINENCE N/A 04/25/2023 URETHRAL SUSPENSION, SLING\FASCIA OR SYNTHETIC (WRVU 12.13) [facility] Social History Socioeconomic History [...] morning and Motegrity 2mg in the evening Try FDgard 1-2 per day for abdominal bloating, take prior to dinner meal. Can try instead of regular peppermint. Try for at least 4 weeks. Continue Miralax regularly, adjust as needed. Dulcolax as needed. Small, frequent meals as best as possible Hyoscyamine as needed for pain Stretching when able IBSRela if worsening constipation. Other options diagnostic/therapeutic for us to consider For bloating specifically Buspar (relaxes the stomach), low dose only 5mg prior to dinner to help you eat more, not previously tried for anxiety Domperidone 10 to 20mg prior to dinner meal (from Brittny) to help with gastric emptying. Discussed. Mirtazipine; would avoid TCA at this time, [...] which is limited, recommend re-considering evaluation at [facility] Follow-up in: 6 months The patient was located in [place] at the time of their visit. TIME SPENT WITH PATIENT Time spent face to face with patient on the day of the encounter: 33 minutes The risks, benefits and alternatives were discussed with the patient who understands and agrees with above. Kim Gonzalez MD 05/21/23 Kim Gonzalez MD Wearing Apparel Assemblerassistant toddler teacher Section of Gastroenterology and Hepatology [facility] [email or web address] (p) documented in this encounter Plan of Treatment Upcoming Encounters Date Type Department Care Team (Late st Contact Info) Description 07/17/2024 1:00 PM EST Office Visit Obstetrics [place] [phone] Roma Lara MD [facility] DR OBSTETRICS AND [place] [address] 10/27/2024 11:00 AM EST TH Visit (TeleHealth) [place] [phone] Kim Gonzalez MD [facility] DR [place] [address] documented as of this encounter Visit Diagnoses Diagnosis Irritable bowel syndrome with constipation Irritable bowel syndrome Functional dyspepsia Dyspepsia and other specified disorders of function of stomach Gastroparesis documented in this encounter Care Teams Cascara Bark Cutter Relationship Specialty Start Date End Date Dea Kc APRN [address] [place] [address] PCP - General Family Medicine 04/12/23 documented as of this encounter
--- OUTSIDE RECORDS SUMMARY | 2024-07-04 03:00 | XMS_ITS | Encounter Summary ---
Author Organization [facility] [place] [address] Care Team Providers Care Material Handler 2Nd Shift Name Role Phone Dea Kc APRN Primary Care Provider [phone] Reason for Visit * Reason Onset Date Comments Medication Refill 07/02/2023 Encounter Details Date Type Department Care Team (Late st Contact Info) Description 07/02/2023 Refill [place] [address] Kim Gonzalez MD [facility] [place] [address] Irritable bowel syndrome with constipation Social History [...] EST Office Visit Obstetrics [place] [address] Roma Lara MD [facility] DR [place]ST[place] [address] 10/27/2024 11:00 AM EST TH Visit (TeleHealth) [place] [address] Kim Gonzalez MD [facility] [place] [address] documented as of this encounter Visit Diagnoses Diagnosis Irritable bowel syndrome with constipation Irritable bowel syndrome documented in this encounter Care Teams Material Handler 2Nd Shift Relationship Specialty Start Date End Date Dea Kc APRN [place] [address] [place] [address] PCP - General Family Medicine 04/12/23 documented as of this encounter
--- OUTSIDE RECORDS SUMMARY | 2024-07-04 03:00 | XMS_ITS | Encounter Summary ---
Author Organization [facility] [place] [address] Care Team Providers Care Allied Health Teacher Name Role Phone De Dea Marie APRN Primary Care Provider [phone] Reason for Visit * Reason Onset Date Comments Medication Refill 04/16/2023 Encounter Details Date Type Department Care Team (Late st Contact Info) Description 04/16/2023 Refill [place] [address] Kim Gonzalez MD [facility] [place] [address] Irritable bowel syndrome with constipation Social History Tobacco Use Types Packs/Day Years Used Date Smoking Tobacco: Former Cigarettes Smokeless Tobacco: Never Alcohol Use Standard Drinks/Week Comments Not Currently 0 (1 standard drink = 0.6 oz pur e alcohol) Sex and Gender Information Value Date Recorded Sex Assigned at Not on file Gender Identity Not on file Sexual Orientation Not on file documented as of this encounter Plan of Treatment Upcoming Encounters Date Type Department Care Team (Late st Contact Info) Description 07/17/2024 1:00 PM EST Office Visit Obstetrics [place] [phone] Roma Lara MD [facility] DR OBSTETRICS [place] [address] 10/27/2024 11:00 AM EST TH Visit (TeleHealth) [place] [address] Kim Gonzalez MD [facility] [place] [address] documented as of this encounter Visit Diagnoses Diagnosis Irritable bowel syndrome with constipation Irritable bowel syndrome documented in this encounter Care Teams Allied Health Teacher Relationship Specialty Start Date End Date Dea Kc, BOX SEALING MACHINE OPERATOR [facility] [place] [address] [address] [place] [address] PCP - General Family Medicine 04/12/23 documented as of this encounter
--- OUTSIDE RECORDS SUMMARY | 2024-07-04 03:00 | XMS_ITS | Encounter Summary ---
Author Organization [facility] [place] [address] Care Team Providers Care Solutions Architect Name Role Phone Dea Kc APRN Primary Care Provider [phone] Reason for Visit * Auth/Cert (Routine) Specialty Diagnoses / Procedures Referred By Contyue t Referred To Contact Diagnoses Fibroids Pelvic pain Cervical pain Fibroids, pelvic pain, cervical pain Procedures PRO LAPAROSCOPY W TOT HYSTERECTUTERUS <=250 GRAM W TUBE/OVARY PRO CYSTOURETHROSCOPY LAPAROSCOPY, TOTAL HYST, UTERUS<250GMS, REM TUBE &/OR OVARY (WRVU 15) CYSTO, CYSTOURETHROSCOPY, DIAGNOSTIC (WRVU 1.53) Roma Chino MD [facility] OBSTETRICS [place] [address] [facility] Referral ID Status Reason Start Date Expiration Date Visits Re quested Visits Authorized [id number] 1 1 Encounter Details Date Type Department Care Team (Late st Contact Info) Description 04/25/2023 9:41 AM EDT - 04/25/2023 3:02 PM EDT Surgery [place] [id number] Roma Chino MD [facility] OBSTETRICS [place] [address] LAPAROSCOPY, TOTAL HYST, UTERUS<250GMS, REM TUBE &/OR OVARY (WRVU 15) Social History Tobacco Use Types Packs/Day Years Used Date Smoking Tobacco: Former Cigarettes Smokeless Tobacco: Never Alcohol Use Standard Drinks/Week Comments Not Currently 0 (1 standard drink = 0.6 oz pur e alcohol) [facility] Inpatient Questions Answer Date Recorded [...] Sign Reading Time Taken Comments Blood Pressure 128/84 04/25/2023 3:00 PM EDT Pulse 84 04/25/2023 3:00 PM EDT Temperature 37.3 ??C (99.1 ??F) 04/25/2023 3:00 PM ED T Respiratory Rate 12 04/25/2023 3:00 PM EDT Oxygen Saturation 97% 04/25/2023 3:00 PM EDT Inhaled Oxygen Concentration - - Weight 52.5 kg (115 lb 12.8 oz) 04/25/2023 8:32 AM EDT Height 157.5 cm (5' 2) 04/25/2023 8:32 AM EDT Body Mass Index 21.18 04/25/2023 8:32 AM EDT documented in this encounter Discharge Instructions * Patient Instructions* Ashwin Escamilla MD - 04/24/2023 7:41 PM EDT Images from the original note were not included. PATIENT DISCHARGE INSTRUCTIONS [facility] HYDROLOGIST Department: Follow Up Appointment: Future Appointments Date Time Provider Department Center 04/26/2023 10:30 AM NURSE, GENERAL OBGYN [facility] OBG 5L [facility] 05/21/2023 11:00 AM Kim Gonzalez MD [facility] GASTRO [facility] 05/31/2023 8:00 AM Roma Chino MD [facility] OBG [facility] Call your doctor if you develop: --A fever over 101 degrees --Severe pain --Heavy vaginal bleeding --Increasing pain, redness, or discharge at your incision --It is normal to have light spotting from the vagina for up to 6 weeks following hysterectomy Activity level: Slowly progress activities as tolerated. No sexual intercourse, no tampons, nothingin the vagina for 6 weeks. Diet: You may resume your regular diet. Be sure you drink plenty of fluids. Please use benja-colace (or colace) 1-2 tablets twice daily for the entire time that you are taking pain medication to keep your bowel movements soft and regular. If you are constipated or have not had a bowel movement in 3 days, please use milk of magnesia (or miralax) as directed over the counter. Driving: Do not drive until you are off of all narcotic medications and you are not feeling pain; usually about 2 weeks. Shower/Bath: Showering is fine. Short baths are OK but you should avoid having any abdominal incision submerged for more than 10-15 minutes for the next 2 weeks. Wound Care: Your incisions are closed with dissolvable stitches and surgical glue. The glue will dissolve on its own over time - do not pick at or rub the glue. The stitches do not need to be removed- they will dissolve on their own. Pain Medication: Pain medications include ibuprofen (Advil/Motrin), acetaminophen (Tylenol), and oxycodone Please use ibuprofen 600 mg every 6 hours with food around the clock for the next several days and then after that use it only as needed. You may take Tylenol (acetaminophen) over the counter as prescribed, 650mg every 6 hours as needed,for the first two days, you may want to schedule this, every 6 hours. Do not exceed 3000mg of Tylenol in any 24 hour period. You can take ibuprofen and Tylenol at the same time as the two medicationswork differently. Please use the oxycodone every 4-6 hours as needed for pain that breaks through the ibuprofen andacetaminophen. Please take your medication exactly as prescribed. Read all instructions that come with your medication. Using narcotic pain medication (such as oxycodone, hydromorphone (Dilaudid), morphine, fentanyl, ortramadol) may cause addiction. While addiction is more common in people with a personal or family history of addiction, it can occur in anyone. Taking more than the prescribed amount of medication or using with alcohol or other drugs can causeyou to stop breathing resulting in coma, brain damage, or . Opioids (oxycodone, hydromorphone/Dilaudid, morphine, fentanyl, tramadol) can slow reaction time, cause drowsiness, or cloud judgement. It is unsafe for you to drive or operate heavy machinery while taking this medication. Opioids (oxycodone, hydromorphone/Dilaudid, morphine, fentanyl, tramadol) are at risk of being diverted by anyone with access to your home. Opioids should be stored in a safe and secure place, such as a locked cabinet or safe. Unused opioids (oxycodone, hydromorphone/Dilaudid, morphine, fentanyl, tramadol) should be disposedof according to the label or patient information. If there are no specific instructions, medications may be returned to a take-back location as documented below. documented in this encounter Medications at Time [...] 50 mg by mouth daily. 05/31/2017 rizatriptan (MAXALT-DEBEAKER) 10 mg Tablet, Rapid Dissolve Take 10 mg by mouth as needed. 04/18/2021 pantoprazole EC (Protonix) 40 mg Tablet, Delayed Release (E.C.) Take 40 mg by mouth daily. tretinoin microspheres (RETIN-A MICRO) 0.1 % Gel daily. 03/29/2022 04/28/2024 oxyCODONE (Roxicodone) 5 mg tablet Take 1 [...] for Pain. 30 tablet 1 04/25/2023 10/26/2023 prucalopride (Motegrity) 2 mg tabletIndications:Irrita ble bowel syndrome with constipation Take 1 tablet by mouth daily. 90 tablet 1 04/16/2023 07/24/2023 hyoscyamine SL (Levsin SL) 0.125 mg sublingual tabletIndications:Irrita ble bowel syndrome with constipation Take 1 tablet by mouth every 4 hours as needed for Cramping. Max 6 pills per day. 30 tablet 3 04/02/2023 07/02/2023 polyethylene glycoL (Miralax) 17 gram/dose PowderIndications:Irrita ble bowel syndrome with constipation DISSOLVE 17 GRAMS (LINE IN CAP) IN LIQUID AND DRINK BY MOUTH TWICE DAILY 238 g 1 11/15/2022 08/30/2023 plecanatide (Trulance) 3 mg TabletIndications:Irrita ble bowel syndrome with constipation Take 1 tablet by mouth daily. 90 tablet 3 11/13/2022 10/23/2023 documented as of this encounter H&P Notes * Linda Little MD - 04/25/2023 9:59 AM EDT Preoperative Interval H&P Patient name: Yumi Peraza Date of : 1970 Yumi Peraza is a 53 y.o. with abnormal uterine bleeding and stress urinary incontinence, who presents today for retropubic mid-urethral sling, with concurrent laparoscopic hysterectomy withDr. Chino. I have reviewed the pre- procedure H&P completed by Nicole Moses MD on 04/12/2023. (x) Condition unchanged since H&P originally performed. Interval Note: Patient seen in same day area. She has had no changes to her health since her pre-operative visit. Patient Vitals for the past 24 hrs: Temp Pulse Resp BP SpO2 O2 Device 04/25/23 0832 37.2 ??C (99 ??F) 90 16 130/83 100 % RA Physical Exam: General: Alert, not in distress : deferred to OR Labs: UPT pending Assessment/Plan: Ms. Peraza, as above, ready to proceed with concurrent mid-urethral sling, retropubic approach. Consent for mid-urethral sling, retropubic approach, and cystoscopy reviewed with patient. Risks, including but not limited to, infection, bleeding, injury to surrounding structures, including bladder, urethra, bowels, nerves and vessels. Mesh erosion or exposure due to sling placement also discussed. Risk of changes in urinary retention, including need for indwelling catheter or intermittent catheterization reviewed. Need for additional procedures also discussed. She had also previously reviewed the consent form with Dr. Moses during her pre-operative visit. Consent signed, and patient ready to proceed with planned surgery. -- To OR as scheduled -- Pyridium 200mg prior to procedure -- Abx: Cefazolin and metronidazole (per hysterectomy bundle) -- VTE ppx: SCDs & heparin per hysterectomy bundle -- Opioid consent and ORT completed by Dr. Chino's team -- Anticipate same day discharge D/W Dr Moses, UroGyn attending Linda Little MD, PGY6 Fellow, Division of Female Pelvic Medicine/Reconstructive Surgery Associated attestation - Nicole Moses MD - 04/26/2023 2:49 PM EDT I agree with H&P update as documented by Dr. Little. Ms. Peraza and I also previously extensively reviewed the procedure, risks and benefits, and consent process both in person at preoperative visit, and she elected to wait to sign the consent due to concerns about possibility of needing postoperative home catheterization. She elects to proceed with the midurethral sling concurrent with today's procedure, as planned. Nicole Moses MDf Female Pelvic Medicine and Reconstructive Surgery * Dianne Moses MD - 04/25/2023 9:19 AM EDT Gynecology- Interval H&P Patient name: Yumi Peraza Date of : 1970 Date of visit: 04/23/2023 I have reviewed the pre-procedure H&P completed by Dr Chino on 04/12/23. Condition unchanged since H&P originally performed. Interval Note: Patient reports that her health has not changed since her preop visit. She denies any new illnesses, hospitalizations, or medications. Her allergies were reviewed and are as documented in the chart. The consent was reviewed and the patient agrees to it as signed. Ample time was given for the patient to ask questions about the procedure and all questions were answered to the patients satisfaction. Plan: Yumi Peraza is a 53 y.o. with a history of chronic pelvic pain who desires surgical management with Total laparoscopic hysterectomy, bilateral salpingectomy and cystoscopy. Combined case with [employer]PM[employer] for mid-urethral sling. Proceed with planned procedure today. Consent was reviewed with the patient. Risks of the surgery were discussed including but not limited to bleeding, infection, injury to adjacent organs or structures, need for large abdominal incisionand/or blood transfusion in the event of hemorrhage or other intraoperative complications. Patient elects to proceed and surgical consents were signed. Patient counseled to take oxycodone only for breakthrough pain not responsive to acetaminophen and ibuprofen. She was counseled regarding the dangers of these medications including sedation which would impair her ability to drive safely. The potential for addiction with continued use of narcotic was discussed and the need to stop use as soon as possible. It was recommended that she promptly destroy unused medication or take them back to drop box locations. The opioid risk assessment was done, opioid informed consent reviewed and signed by patient, PDMP query completed. Discharge instructions discussing the risk of opioids are included in her discharge instructions which are printed and given to the patient at discharge. Patient verbalized understanding. Preop antibiotics: Ancef 2g and flagyl 500mg Preop test: negative POC FS normal at 89 Site marking: N/A SCDs for VTE ppx Plan to discharge when patient meeting post-op goals. Likely same day discharge. Patient was seen and discussed with attending welding lead burner, Jane. Dianne Moses MD PGY1 04/23/23 Associated attestation - Roma Chino MD - 04/25/2023 9:42 AM EDT I have seen the patient in the preoperative area, reviewed the surgical plan, postoperative concerns for which to reach out, and answered any questions. I agree with the above resident note. Roma Chino MD 04/25/2023 9:42 AM documented in this encounter Miscellaneous Notes * Brief Op Note - Nicole Moses MD - 04/25/2023 1:45 PM EDT Brief Operative Note Patient Name: Yumi Peraza : [id number] MR#: [id number] Case Date: 04/25/2023 Surgeon: Surgeon(s) and Role: Panel 1: * Roma Chino MD - Primary * Ashwin Escamilla MD - Resident - Assisting * Dianne Moses MD - Resident - Assisting Panel 2: * Nicole Moses MD - Primary * Linda Little MD - Fellow - Assisting Preoperative diagnosis: Fibroids, pelvic pain, cervical pain Stress urinary incontinence Postoperative diagnosis: Fibroids, pelvic pain, cervical pain Stress urinary incontinence Procedure(s) (LRB): LAPAROSCOPY, TOTAL HYST, UTERUS<250GMS, REM TUBE &/OR OVARY (WRVU 15) (N/A) CYSTO, CYSTOURETHROSCOPY, DIAGNOSTIC (WRVU 1.53) (N/A) URETHRAL SUSPENSION, SLING\FASCIA OR SYNTHETIC (WRVU 12.13) (N/A) CYSTO, CYSTOURETHROSCOPY, DIAGNOSTIC (WRVU 1.53) (N/A) Procedure, panel 2: Retropubic midurethral sling with Caldear Desara Blue polypropylene, cystourethroscopy THIS WAS A JOINT PROCEDURE; PLEASE SEE DR. CHINO'S SEPARATE OPERATIVE REPORT THAT DESCRIBES TOTAL LAPAROSCOPIC HYSTERECTOMY, BILATERAL SALPINGECTOMY, CYSTOSCOPY Anesthesia: General Findings: 1) Initial Cystoscopy following hysterectomy: Bilateral ureteral orifices in orthotopic position with brisk jets of pyridium-stained urine. Urothelium intact with no evidence of suture, trauma, lesions, masses, stones, foreign bodies. Urethroscopy normal. 2) exam under anesthesia: no lesions. Normal support. 3) Cystoscopy: Bilateral ureteral orifices in orthotopic position with brisk jets of pyridium-stained urine. Urothelium intact with no evidence of suture, trauma, lesions, masses, stones, foreign bodies. Urethroscopy normal. Complications: None Intake: Intraprocedure Crystalloid Total Intake Lactated Ringers 300.00 mL lactated ringers infusion 600.00 mL Total Intake 900 mL Transfusion No data found in the last 1 encounters. Output: Estimated Blood Loss: 15mL for this panel; 40mL for entire surgery. Urine Output:: (no urine output recorded) Other Output: (no other output recorded) Drains: Mcfarland to gravity Specimens removed during surgery: None Disposition: awakened from anesthesia, extubated and taken to the recovery room in a stable condition, having suffered no apparent untoward event. Condition: doing well without problems Attestation: Case Date: 04/25/2023 I was present and I participated during the entire procedure (does not need to include opening and closing). (Please see the Surgical Encounter Summary for any Implant and Specimen details pertinent to this patient.) Surgical Infection Prevention Bundle Used? Yes, as documented in primary surgical operative report by Dr. Chino's team. This portion of the joint surgery did not create indication for SSI bundle. Nicole Moses MD Female Pelvic Medicine and Reconstructive Surgery * Op Note - Roma Chino MD - 04/25/2023 1:07 PM EDT Operative Note Patient Name: Yumi Peraza : [id number] MR#: [id number] Case Date: 04/25/2023 Surgeon: Surgeon(s) and Role: Panel 1: * Roma Chino MD - Primary * Ashwin Escamilla MD - Resident - Assisting * Dianne Moses MD - Resident - Assisting Panel 2: * Nicole Moses MD - Primary * Linda Little MD - Fellow - Assisting Preoperative diagnosis: Fibroids, pelvic pain, cervical pain Postoperative diagnosis: Fibroids, pelvic pain, cervical pain Procedure(s) (LRB): LAPAROSCOPY, TOTAL HYST, UTERUS<250GMS, REM TUBE &/OR OVARY (WRVU 15) (N/A) CYSTO, CYSTOURETHROSCOPY, DIAGNOSTIC (WRVU 1.53) (N/A) URETHRAL SUSPENSION, SLING\FASCIA OR SYNTHETIC (WRVU 12.13) (N/A) Total laparoscopic hysterectomy, bilateral salpingectomy, cystoscopy Retropubic mid-urethral sling (by Urogynecology) Anesthesia: General Findings: EUA revealed multiparous cervix with ectropion, mobile, normal sized uterus, no adnexal masses. Laparoscopically, uterus with two fibroids, one right, anterior lower uterine segment and thesecond right, mid lateral consistent with ultrasound. Normal bilateral fallopian tubes and small, normal bilateral ovaries. No endometriosis or scar tissue appreciated. Ureters coursing well below surgical field. Grossly normal liver edge and bowel. Notably, left ureter ran OVER left uterine artery. Cystoscopy revealed no intracavitary injury and strong bilateral ureteral jets. Complications: None Intake: Intraprocedure Crystalloid Total None Transfusion No data found in the last 1 encounters. Output: Estimated Blood Loss: 25 mL Urine Output:: (no urine output recorded) Other Output: (no other output recorded) UOP 100mL Drains: None Specimens removed during surgery: Order Name Source Comment Collection Info Order Time SPECIMEN TO PATHOLOGY fibroids, pelvic pain, cervical pain uterus, cervix, bilateral fallopian tubes excision 04/25/2023 12:02 PM Time specimen removed from patient: 12:01 PM Number of tissue samples (in container) 1 Disposition: Patient remained intubated for Dr. Moses to finish her portion of the procedure. Condition: doing well without problems Attestation: Case Date: 04/25/2023 I was present and I participated during the entire procedure (does not need to include opening and closing). (Please see the Surgical Encounter Summary for any Implant and Specimen details pertinent to this patient.) HPI: Yumi Peraza is a 53 y.o. with AUB-L and cervical and pelvic pain who desired definitive management with hysterectomy. Informed consent was obtained and placed in chart. Procedure Description: The patient was taken to the operating room where general endotracheal anesthesia was obtained without difficulty. She was placed in the dorsal lithotomy position in [facility]. SCD's were on and active. She was given cefazolin 2 grams and Flagyl 500mg. Examination under anesthesia revealed a mobile, anteverted uterus and large cervix. The patient was prepped and draped in the usual sterile fashion. A timeout was performed with all members of the team in agreement. A 3.5 cm V Care uterine manipulator was then placed after sounding the uterus and dilating the cervix with Garcia dilators. A Mcfarland catheter was inserted into the bladder. Gloves were changed. A 5-mm vertical incision was made in thebase of her umbilicus. The 5-mm Opti-nadeem trochar was inserted with direct visualization with the laparoscopic into the peritoneal cavity. Pneumoperitoneum was obtained to a pressure of 15mmHg. A survey of the abdomen and pelvis was performed with the findings as listed above. A 5 mm trochars were then placed without difficulty under direct visualization in the left lower quadrant. A 12 mm skin incision was made in the right lower quadrant and the AirSeal trochar was placed under direct visualization. The AirSeal was then activated. The patient was placed in Trendelenburg position. Both ureters were visualized clearly. The mesosalpinx underlying the left fallopian tubewas sequentially desiccated and divided to the level of the cornua. The left round ligament was then dessicated and divided, and then the anterior leaf of the broad ligament was opened to the level of the colpotomy cup. The bladder flap was developed with a combination of blunt and sharp dissectionwith the LigaSure. The bladder was dissected caudad away from the colpotomy cup. The left utero-ovarian ligament was then desiccated and divided and the posterior leaf of the broad ligament was dissected to the uterosacral ligament on the left. These steps were repeated on the right side. The uterine vessels were then skeletonized, desiccated and divided on both sides. The colpotomy was then completed with the monopolar scissors. The uterus, cervix, and bilateral fallopian tubes were withdrawn through the vagina and sent to pathology for permanent. Monopolar energy was applied to the right corner of the colpotomy where there was ongoing bleeding noted. Hemostasis was appreciated. A lap inside of a sterile glove was then placed into the vagina to maintain pneumoperitoneum. The vaginal cuff was laparoscopically sutured closed with 0 vicryl suture in an interrupted fashion using the EndoStitch device. The pelvis was irrigated and drained, and excellent hemostasis from all pedicles was seen. All instruments and sponges were removed from the abdomen and vagina. A cystoscopy was then performed. Bilateral ureteral jets were visualized. A full survey of the entire bladder revealed no evidence of any bladder injury. Pneumoperitoneum was released, and all laparoscopic instruments were removed from the abdomen. The skin incisions were closed with 4-0 Monocryl suture and Dermabond. The Urogynecology team then completed their portion of the procedure. Please see separate op note for details. The patient was awakened from general anesthesia, extubated and taken to the recovery room in stable condition. All counts were reported as correct x 2. Dr. Chino, attending welding lead burner, participated and was present for the entire procedure without conflicting responsibilities. Ashwin Escamilla MD PGY4 04/25/23 * Brief Op Note - Roma Chino MD - 04/25/2023 12:38 PM EDT Brief Operative Note Patient Name: Yumi Peraza : [id number] MR#: [id number] Case Date: 04/25/2023 Surgeon: Surgeon(s) and Role: Panel 1: * Roma Chino MD - Primary * Ashwin Escamilla MD - Resident - Assisting * Dianne Moses MD - Resident - Assisting Panel 2: * Nicole Moses MD - Primary * Linda Little MD - Fellow - Assisting Preoperative diagnosis: Fibroids, pelvic pain, cervical pain Postoperative diagnosis: Fibroids, pelvic pain, cervical pain Procedure(s) (LRB): LAPAROSCOPY, TOTAL HYST, UTERUS<250GMS, REM TUBE &/OR OVARY (WRVU 15) (N/A) CYSTO, CYSTOURETHROSCOPY, DIAGNOSTIC (WRVU 1.53) (N/A) URETHRAL SUSPENSION, SLING\FASCIA OR SYNTHETIC (WRVU 12.13) (N/A) Anesthesia: General Findings: EUA revealed multiparous cervix with ectropion, mobile, normal sized uterus, no adnexal masses. Laparoscopically, uterus with two fibroids, one right, anterior lower uterine segment and thesecond right, mid lateral consistent with ultrasound. Normal bilateral fallopian tubes and small, normal bilateral ovaries. No endometriosis or scar tissue appreciated. Ureters coursing well below surgical field. Grossly normal liver edge and bowel. Notably, left ureter ran OVER left uterine artery. Cystoscopy revealed no intracavitary injury and strong bilateral ureteral jets. Complications: None Intake: Intraprocedure Crystalloid Total Intake Lactated Ringers 200.00 mL lactated ringers infusion 400.00 mL Total Intake 600 mL Transfusion No data found in the last 1 encounters. Output: Estimated Blood Loss: 25 mL Urine Output:: (no urine output recorded) Other Output: (no other output recorded) UOP 100mL Drains: None Specimens removed during surgery: Order Name Source Comment Collection Info Order Time SPECIMEN TO PATHOLOGY fibroids, pelvic pain, cervical pain uterus, cervix, bilateral fallopian tubes excision 04/25/2023 12:02 PM Time specimen removed from patient: 12:01 PM Number of tissue samples (in container) 1 Disposition: Patient remained intubated for Dr. Moses to finish her portion of the procedure. Condition: doing well without problems Attestation: Case Date: 04/25/2023 I was present and I participated during the entire procedure (does not need to include opening and closing). (Please see the Surgical Encounter Summary for any Implant and Specimen details pertinent to this patient.) Surgical Infection Prevention Bundle Used? Yes Infection present at time of surgery?: No Chlorhexidine wipes in Same Day prior to surgery: Yes Expected bowel surgery? No. Fingerstick glucose checked in Same Day: Yes Chlorhexidine-alcohol skin prep: Yes Pre-op IV antibiotics: Cefazolin + Metronidazole Vaginal prep: Yes. Chlorhexidine Open case? No. * Op Note - Nicole Moses MD - 04/25/2023 10:54 AM EDT [facility] Operative Note Patient Name: Yumi Peraza : [id number] MR#: [id number] Case Date: 04/25/2023 Surgeon: Surgeon(s) and Role: Panel 1: * Roma Chino MD - Primary * Ashwin Escamilla MD - Resident - Assisting * Dianne Moses MD - Resident - Assisting Panel 2: * Nicole Moses MD - Primary * Linda Little MD - Fellow - Assisting Preoperative diagnosis: Fibroids, pelvic pain, cervical pain Stress urinary incontinence Postoperative diagnosis: Fibroids, pelvic pain, cervical pain Stress urinary incontinence Procedure(s) (LRB): LAPAROSCOPY, TOTAL HYST, UTERUS<250GMS, REM TUBE &/OR OVARY (WRVU 15) (N/A) CYSTO, CYSTOURETHROSCOPY, DIAGNOSTIC (WRVU 1.53) (N/A) URETHRAL SUSPENSION, SLING\FASCIA OR SYNTHETIC (WRVU 12.13) (N/A) CYSTO, CYSTOURETHROSCOPY, DIAGNOSTIC (WRVU 1.53) (N/A) Procedure, panel 2: Retropubic midurethral sling with Caldear Desara Blue polypropylene, cystourethroscopy THIS WAS A JOINT PROCEDURE; PLEASE SEE DR. CHINO'S SEPARATE OPERATIVE REPORT THAT DESCRIBES TOTAL LAPAROSCOPIC HYSTERECTOMY, BILATERAL SALPINGECTOMY, CYSTOSCOPY Findings: 1) Initial Cystoscopy following hysterectomy: Bilateral ureteral orifices in orthotopic position with brisk jets of pyridium-stained urine. Urothelium intact with no evidence of suture, trauma, lesions, masses, stones, foreign bodies. Urethroscopy normal. 2) exam under anesthesia: no lesions. Normal support. 3) Cystoscopy: Bilateral ureteral orifices in orthotopic position with brisk jets of pyridium-stained urine. Urothelium intact with no evidence of suture, trauma, lesions, masses, stones, foreign bodies. Urethroscopy normal. Anesthesia: General Estimated Blood Loss: 25 mL Specimens removed during surgery: None (for our portion of the case) Drains: Mcfarland to gravity bag drainage Surgical Closure: Primary Closure - skin incision is completely closed without any wires, blanca, drains or other devices Disposition: awakened from anesthesia, extubated and taken to the recovery room in a stable condition, having suffered no apparent untoward event. Condition: doing well without problems (Please see the Surgical Encounter Summary for any Implant and Specimen details pertinent to this patient.) HPI/Surgical Indications: Yumi Peraza is a 53 y.o. with abnormal uterine bleeding and stress urinary incontinence, who presents today for retropubic mid-urethral sling, with concurrent laparoscopic hysterectomy withDr. Chino. Ms. Yumi Peraza was seen in pre-op, consent was signed and she elected to proceed with planned surgery. Procedure Description: After confirming consent with the patient, she was taken to the OR and placed in supine position. Knee-high intermittent pneumatic compression stockings were in placed on the bilateral lower extremities and functioning throughout the case. Anesthesia was then administered without difficulty. She was placed in dorsal lithotomy using Yellofin stirrups in a neurologically safe postion with care taken to avoid hyperflexion or external rotation of the hips or hyperextension of the knees. She received prophylactic antibiotics. A briefing procedure was performed including our team and Dr. Chino's team. She was prepped and draped in the usual sterile fashion. At that time Dr. Chino's team proceeded with the laparoscopic hysterectomy, please see their operative note for more information. After Dr. Chino and her team had completed their portion of the procedure, we performed a cystoscopy, which showed reassuring findings and bilateral ureteral jets with pyridium stained urine. Attention was then turned to the midurethral sling. An #18 Mongolian Mcfarland catheter was placed in the bladder using sterile technique. The suprapubic area was palpated and markings were made where the trocar should exit at two points 2 cm lateral to the midline just cephalad to the pubic tubercle. Themidurethra was identified via palpation and visualization and the anterior vaginal wall was graspedwith Allis clamps on each side at this level. 1% lidocaine with epinephrine was injected under the epithelium at the midurethra and into the planned bilateral periurethral tunnels. A 1cm, vertical, midline incision was then performed at the level of the midurethra. Bilateral periurethral tunnels were created with sharp and blunt dissection in the paraurethral space out to the inferior aspect of the pubic symphysis bilaterally. A rigid catheter guide was placed into the Mcfarland catheter and the bladder was deflected to the left, away from the side that the Alicia retropubic trocar and Desara Blue sling were placed by directing the catheter guide and Mcfarland to the ipsilateral side. The trocar was passed on the patient's right side. The trocar was introduced into the periurethral tunnel and was advanced retropubically to exit the skin in a suprapubic position as previously marked, taking care to hug the posterior pubic bone and avoid moving the trocar tip laterally. The vaginal sulcus was confirmed to be intact. The trocar was removed and the suture leader was held with a hemostat. The bladder was deflected to the right as the left trocar was then passed in a similar fashion. The slingwas pulled through to exit suprapubically. Cystoscopy was performed and confirmed there was no bladder injury and there were bilateral ureteral jets. The #18 Fr Mcfarland was replaced and bladder was allowed to drain prior to tensioning the sling. The sling was positioned using a Woodbine clamp to grasp a 3mm knuckle of the sling. The plastic sheaths were removed and excess mesh was cut to a level just below the skin at the suprapubic sites. The skinand fascia were elevated and released overlying the suprapubic mesh exit sites to prevent puckering. The skin incisions were reapproximated with #4-0 monocryl with a single interrupted suture on eachincision, while holding pressure on the vaginal incision. The vaginal epithelium was then reapproximated with #2-0 Vicryl suture in a running fashion, taking care to incorporate full-thickness bites of everted vaginal tissue. Hemostasis was excellent. 14 Fr Mcfarland to gravity bag drainage was then placed. Attending UroGynecologist, Dr. Moses, was present and scrubbed for the duration of the procedure. Linda Little MD, PGY6 Fellow, Division of Female Pelvic Medicine/Reconstructive Surgery Surgical Infection Prevention Bundle Used? N/A - for our portion of the procedure. Attestation: Case Date: 04/25/2023 I was present and I participated during the entire procedure (does not need to include opening and closing). Nicole Moses MD 04/26/2023 documented in this encounter Plan of Treatment Upcoming Encounters Date Type Department Care Team (Late st Contact Info) Description 07/17/2024 1:00 PM EST Office Visit Obstetric[place] [address] Roma Chino MD [facility] [address] OBSTETRICS [place] [address] 10/27/2024 11:00 AM EST TH Visit (TeleHealth) [place] [phone] Kim Gonzalez MD [facility] [place] [address] documented as of this encounter Procedures Procedure Name Priority Date/Time Associated Diagnosis Comments SURGICAL PATHOLOGY REPORT Routine 2022 12:02 PM EDT SPECIMEN TO PATHOLOGY Routine 04/25/2023 12:02 PM EDT Cystourethroscopy (99546) 2022 10:17 AM EDT Fibroids Chronic pelvic pain in female Abnormal uterine bleeding Sling Oper Stres Incontinence (04307) 04/25/2023 10:17 AM EDT Fibroids Chronic pelvic pain in female Abnormal uterine bleeding Cystourethroscopy (55374) 2022 10:17 AM EDT Fibroids Chronic pelvic pain in female Abnormal uterine bleeding Laparoscopy W Tot Hysterectuterus <=250 Gram W Tube/Ovary (76319) 04/25/2023 10:17 AM EDT Fibroids Chronic pelvic pain in female Abnormal uterine bleeding POCT GLUCOSE Routine 04/25/2023 8:37 AM EDT LAPAROSCOPY, TOTAL HYST, UTERUS<250GMS, REM TUBE &/OR OVARY Routine 04/25/2023 8:14 AM EDT Fibroids Chronic pelvic pain in female Abnormal uterine bleeding URETHRAL SUSPENSION,SLING\FASCIA OR SYNTHETIC Routine 04/25/2023 8:14 AM EDT Fibroids Chronic pelvic pain in female Abnormal uterine bleeding CYSTO,CYSTOURETHROSCOPY, DIAGNOSTIC Routine 04/25/2023 8:14 AM EDT Fibroids Chronic pelvic pain in female Abnormal uterine bleeding IMPLANTABLE DEVICES SCAN 023 12:00 AM EDT documented in this encounter Results * Surgical Pathology Report (04/25/2023 12:02 PM EDT) Final Diagnosis [id number] ? Location: [facility]; [facility]; The signing pathologist has (i) examined the relevant preparation(s) for the specimen(s) and (ii) rendered or confirmed the diagnosis(es). . ?Surgical Pathology DIAGNOSIS A - Uterus, cervix, bilateral fallopian tubes, hysterectomy and bilateral salpingectomy: - Inactive endometrium. - Leiomyomata with stromal hyalinization and focal microcalcificatio n. - Benign cervix with Nabothian cysts. - Bilateral fallopian tubes with no significant pathologic abnormalities. Electronically signed by: ?Thang Nguyen MD Verified: ??04/30/2023 9:18 ?? Pathologist Performed at: ??-[facility] Dept. of Pathology, [place] [address] Wire Drawing Machine Operator: Jennifer Medina MD, FCAP, ??CLIA Certificate: [id number] SPECIMEN(S) SUBMITTED A - Uterus, cervix, bilateral fallopian tubes, excision CLINICAL INFORMATION Fibroids, pelvic pain, cervical pain SPECIMEN PROCESSING A - Labeled/Fixative: Uterus, cervix, bilateral fallopian tubes, fresh. Quantity: Single Size: Cornu to cornu: 5.0 cm Anterior to posterior: 4.0 cm Dome to Cervix: 9.0 cm Weight (overall): 132 g Tissue Description: Intact, total hysterectomy. UTERUS Endometrium: 0.1 cm, one posterior wall submucosal nodule measuring 1.1 x 1.1 x 0.9 cm, abutting the endometrium. Myometrium: 1.5 cm thick, Seven intramural nodules ranging from 0.5 x 0.5-3.0 x 3.0 x 2.0 cm. Serosa: Glistening and pink-barney. CERVIX Diameter: 3.5 cm Os: 1.8 cm, patulous Right Fallopian Tube: 7.0 x 2.0 x 0.5 cm, fimbriated. Left Fallopian Tube: 6.5 x 2.0 x 0.5 cm, fimbriated. Sections/Processi ng: Cigarette Catcher sections in 22 cassettes as follows: ?A1: ??Cigarette Catcher squamocolumnar junction at 12 o'clock ?A2: ??Cigarette Catcher squamocolumnar junction at 6 o'clock ?A3: ??Cigarette Catcher endomyometrium from anterior wall ?A4: ??Cigarette Catcher endomyometrium from posterior wall ?A5: ??Cigarette Catcher submucosal nodule ?A6-A13: ??Cigarette Catcher intramural nodules ?A14-A16: ??Cigarette Catcher largest intramural nodule ?A17-A19: ??Right fallopian tube fimbriae and workforce services representative cross sections ?A20-A22: ??Left fallopian tube fimbriae and workforce services representative cross sections ??po 04/30/2023 9:18 AM EDT [facility] Uterine Corpus 04/25/2023 12 :02 PM EDT 04/25/2023 12:02 PM EDT Roma Chino MD PATHOLOGY/CYTOLOGY O [facility] [place] [address] [facility] [place] [address] * Specimen to Pathology (04/25/2023 12:02 PM EDT) AP Specimen 04/25/2023 12:0 2 PM EDT 04/25/2023 12:02 PM EDT Narrative [facility] - 04/25/2023 12:02 PM EDT Specimen requisition ordered. ??Separate Pathology report to follow Roma Chino MD PATHOLOGY/CYTOLOGY O [facility] [place] [address] * POCT Glucose (04/25/2023 8:37 AM EDT) Glucose, POC 89 65 - 199 mg/dL [facility] Comment: Supplemental ranges: <140 mg/dL before meals <180 mg/dL all other times of the day Blood 04/25/2023 8:37 AM EDT 04/25/2023 8:37 AM EDT Roma Chino MD POINT OF CARE TEST O [facility] [place] [address] * SCAN DOC: IMPLANTABLE DEVICES (04/25/2023 12:00 AM EDT) Narrative 04/25/2023 12:00 AM EDT Ordered by an unspecified provider. Scanning Provider MEDIA MGR SCAN EXT O RDR/RSLT documented in this encounter Visit Diagnoses Diagnosis Fibroids Leiomyoma of uterus, unspecified Chronic pelvic pain in female Unspecified symptom associated with female genital organs Abnormal uterine bleeding Unspecified disorder of menstruation and other abnormal bleeding from female genital tract Fibroids Leiomyoma of uterus, unspecified Chronic pelvic pain in female Unspecified symptom associated with female genital organs Abnormal uterine bleeding Unspecified disorder of menstruation and other abnormal bleeding from female genital tract documented in this encounter Administered Medications Inactive Administered Medications - up to 3 most recent administrations Medication Order MAR Action Action Date Dose Rate Site acetaminophen (Tylenol) tablet 975 mg 975 mg, Oral, ONCE, 1 dose, On Sun04/25/23 at 0845, Administer with a SIP of water only. Maximum dose of acetaminophen is 4,000 mg from all sources in 24 hours., Day of Surgery (Day of Procedure), Routine Given 04/25/2023 8:45 AM EDT 975 mg BUpivacaine (pf) (Marcaine) (5 mg/mL) 0.5% injection PRN, Starting on Sun04/25/23 at 1215, Until Sun04/25/23 at 1857, Intra-Operative (Intra-Procedure), Routine Given 04/25/2023 12:15 PM EDT 5 mLs HYDROmorphone (Dilaudid) (2 mg/mL) multi-dose injection solution 0.2 mg 0.2 mg, Intravenous, EVERY 10 MIN PRN, Starting on Sun04/25/23 at 1318, Until Sun04/25/23 at 1656, Pain, For Mild to Moderate Pain (1-5 out of 10), Hold for respiratory rate less than 10 per minute. Maximum dose 2 mg over one hour including administrations in the OR. If multiple pain medications are ordered, start with HYDROmorphone and use fentaNYL for breakthrough pain. Notify anesthesia team if the maximum of 100 mcg of fentaNYL AND 2 mg of HYDROmorphone has been administered and patient still complains of moderate to severe pain (6-10)., PACU Recovery, Routine Given 04/25/2023 2:38 PM EDT 0.2 mg Given 04/25/2023 2:21 PM EDT 0.2 mg ketorolac (Toradol) (30 mg/mL) injection 15 mg 15 mg, Intravenous, EVERY 8 HOURS SCHEDULED, 3 doses, First dose on Sun04/25/23 at 1315, Last dose on Hayley 04/26/23 at 0600, Routine Given 04/25/2023 1:07 PM EDT 30 mg lidocaine-EPINEPHrine (1% - 1:100,000) injection PRN, Starting on Sun04/25/23 at 1249, Until Sun04/25/23 at 1857, Intra-Operative (Intra-Procedure), Routine Given 04/25/2023 12:49 PM EDT 10 mLs 19- Surgical Site oxyCODONE (Roxicodone) tablet 5-10 mg 5-10 mg, Oral, EVERY 3 HOURS PRN, Starting on Sun04/25/23 at 1250, Until Sun04/25/23 at 1857, Pain, - If multiple pain medications ordered, use acetaminophen first. - If pain not relieved by acetaminophen first, administer oxycodone. - Initial dose 5 mg. - If pain control not adequate in 60 minutes, give additional 5 mg., Routine Given 04/25/2023 2:06 PM EDT 5 mg phenazopyridine (Pyridium) tablet 200 mg 200 mg, Oral, ONCE, On Sun04/25/23 at 0845, 1 dose, Day of Surgery (Day of Procedure) Given 04/25/2023 8:45 AM EDT 200 mg prochlorperazine (Compazine) (5 mg/mL) injection 5 mg 5 mg, Intravenous, EVERY 30 MIN PRN, 2 doses, Starting on Sun04/25/23 at 1318, Until Sun04/25/23 at 1625, Nausea, Vomiting, If multiple antiemetics ordered, use ondansetron first and if ineffective use prochlorperazine or haloperidoL second, PACU Recovery, Routine Given 04/25/2023 4:25 PM EDT 5 mg Given 04/25/2023 3:04 PM EDT 5 mg documented in this encounter Active and Recently Administered Medications Times are shown in EDT. Scheduled Medication Order 04/23/2023 04/24/2023 04/25/2023 acetaminophen (Tylenol) tablet 975 mg (COMPLETED) 975 mg, Oral, ONCE, 1 dose, On Sun04/25/23 at 0845, Administer with a SIP of water only. Maximum dose of acetaminophen is 4,000 mg from all sources in 24 hours., Day of Surgery (Day of Procedure), Routine 0845 (Given - Provid er: Colleen Mason RN) ketorolac (Toradol) (30 mg/mL) injection 15 mg 15 mg, Intravenous, EVERY 8 HOURS SCHEDULED, 3 doses, First dose on Sun04/25/23 at 1315, Last dose on Hayley 04/26/23 at 0600, Routine 1307 (Given - Provid er: Jennifer Corrigan MD)1315 (Due) metroNIDAZOLE (Flagyl) 500 mg in sodium chloride 0.9% 100 mL infusion (COMPLETED)(Linked Group 1) 500 mg, Intravenous, ONCE, 1 dose, On Sun04/25/23 at 0845, Administer over 30 Minutes, Cloth Washer Operator to OR Infuse over 30 minutes., Day of Surgery (Day of Procedure), Indication for (Active or Suspected): Prophylaxis 1050 (Given - Provid er: Jennifer Corrigan MD) phenazopyridine (Pyridium) tablet 200 mg (COMPLETED) 200 mg, Oral, ONCE, On Sun04/25/23 at 0845, 1 dose, Day of Surgery (Day of Procedure) 0845 (Given - Provid er: Colleen Mason RN) Continuous Medication Order 04/23/2023 04/24/2023 04/25/2023 lactated ringers infusion (CANCELED) 1,000 mL, at 100 mL/hr, Intravenous, CONTINUOUS, Starting on Sun04/25/23 at 0845, Until Sun04/25/23 at 1656, Day of Surgery (Day of Procedure) 1020 (New Bag - Prov ider: Jennifer Corrigan MD)1111 (Anesthesia Volume Adjustment - Provider: Jennifer Corrigan MD)1248 (Anesthesia Volume Adjustment - Provider: Jennifer Corrigan MD)1342 (Anesthesia Volume Adjustment - Provider: Jennifer Corrigan MD) PRN Medication Order 04/23/2023 04/24/2023 04/25/2023 acetaminophen (Tylenol) tablet 650 mg 650 mg, Oral, EVERY 6 HOURS PRN, Starting on Sun04/25/23 at 1250, Until Sun04/25/23 at 1857, Pain, If multiple pain medications ordered, use acetaminophen first. Maximum dose of acetaminophen is 4000 mg from all sources in 24 hours. When ordered for pain, acetaminophen should be given even when other ordered pain medications are indicated., Routine BUpivacaine (pf) (Marcaine) (5 mg/mL) 0.5% injection (CANCELED) PRN, Starting on Sun04/25/23 at 1215, Until Sun04/25/23 at 1857, Intra-Operative (Intra-Procedure), Routine 1215 (Given - Provid er: Roma Chino MD) HYDROmorphone (Dilaudid) (2 mg/mL) multi-dose injection solution 0.2 mg (CANCELED)(Linked Group 2) 0.2 mg, Intravenous, EVERY 10 MIN PRN, Starting on Sun04/25/23 at 1318, Until Sun04/25/23 at 1656, Pain, For Mild to Moderate Pain (1-5 out of 10), Hold for respiratory rate less than 10 per minute. Maximum dose 2 mg over one hour including administrations in the OR. If multiple pain medications are ordered, start with HYDROmorphone and use fentaNYL for breakthrough pain. Notify anesthesia team if the maximum of 100 mcg of fentaNYL AND 2 mg of HYDROmorphone has been administered and patient still complains of moderate to severe pain (6-10)., PACU Recovery, Routine 1421 (Given - Provid er: Gopi Cason RN)1438 (Given - Provider: Gopi Cason RN) lidocaine-EPINEPHrine (1% - 1:100,000) injection (CANCELED) PRN, Starting on Sun04/25/23 at 1249, Until Sun04/25/23 at 1857, Intra-Operative (Intra-Procedure), Routine 1249 (Given - Provid er: Nicole Moses MD) oxyCODONE (Roxicodone) tablet 5-10 mg 5-10 mg, Oral, EVERY 3 HOURS PRN, Starting on Sun04/25/23 at 1250, Until Sun04/25/23 at 1857, Pain, - If multiple pain medications ordered, use acetaminophen first. - If pain not relieved by acetaminophen first, administer oxycodone. - Initial dose 5 mg. - If pain control not adequate in 60 minutes, give additional 5 mg., Routine 1406 (Given - Provid er: Gopi Cason RN) prochlorperazine (Compazine) (5 mg/mL) injection 5 mg (COMPLETED) 5 mg, Intravenous, EVERY 30 MIN PRN, 2 doses, Starting on Sun04/25/23 at 1318, Until Sun04/25/23 at 1625, Nausea, Vomiting, If multiple antiemetics ordered, use ondansetron first and if ineffective use prochlorperazine or haloperidoL second, PACU Recovery, Routine 1504 (Given - Provid er: Gopi Cason RN)1625 (Given - Provider: Gopi Cason RN) Linked Groups Order Group 1: ceFAZolin (Ancef) 2 g vial attach to sodium chloride 0.9% 100 mL Mini-Bag Plus (CANCELED) 2 g, Intravenous, ONCE, 1 dose, On Sun04/25/23 at 0845, Administer over 30 Minutes, Cloth Washer Operator to OR Infuse over 30 minutes., Day of Surgery (Day of Procedure), Indication for (Active or Suspected): Prophylaxis And metroNIDAZOLE (Flagyl) 500 mg in sodium chloride 0.9% 100 mL infusion (COMPLETED)Jump to med 500 mg, Intravenous, ONCE, 1 dose, On Sun04/25/23 at 0845, Administer over 30 Minutes, Cloth Washer Operator to OR Infuse over 30 minutes., Day of Surgery (Day of Procedure), Indication for (Active or Suspected): Prophylaxis Group 2: HYDROmorphone (Dilaudid) (2 mg/mL) multi-dose injection solution 0.2 mg (CANCELED)Jump to med 0.2 mg, Intravenous, EVERY 10 MIN PRN, Starting on Sun04/25/23 at 1318, Until Sun04/25/23 at 1656, Pain, For Mild to Moderate Pain (1-5 out of 10), Hold for respiratory rate less than 10 per minute. Maximum dose 2 mg over one hour including administrations in the OR. If multiple pain medications are ordered, start with HYDROmorphone and use fentaNYL for breakthrough pain. Notify anesthesia team if the maximum of 100 mcg of fentaNYL AND 2 mg of HYDROmorphone has been administered and patient still complains of moderate to severe pain (6-10)., PACU Recovery, Routine Or HYDROmorphone (Dilaudid) (2 mg/mL) multi-dose injection solution 0.4 mg (CANCELED) 0.4 mg, Intravenous, EVERY 10 MIN PRN, Starting on Sun04/25/23 at 1318, Until Sun04/25/23 at 1656, Pain, For Moderate to Severe Pain (6-10 out of 10), Hold for respiratory rate less than 10 per minute. Maximum dose 2 mg over one hour including administrations in the OR. If multiple pain medications are ordered, start with HYDROmorphone and use fentaNYL for breakthrough pain. Notify anesthesia team if the maximum of 100 mcg of fentaNYL AND 2 mg of HYDROmorphone has been administered and patient still complains of moderate to severe pain (6-10)., PACU Recovery, Routine documented in this encounter Care Teams Solutions Architect Relationship Specialty Start Date End Date Dea Kc, ETL DEVELOPER [address] [place] [address] PCP - General Family Medicine 04/12/23 documented as of this encounter
--- OUTSIDE RECORDS SUMMARY | 2024-07-04 03:00 | XMS_ITS | Encounter Summary ---
Author Organization [facility] [place] [address] Care Team Providers Care Textile Screen Maker Name Role Phone Dea Kc APRN Primary Care Provider [phone] Encounter Details Date Type Department Care Team (Late st Contact Info) Description 06/22/2023 12:05 AM EDT Ancillary Procedure Radiology Library at [facility] [place] [address] Dea Kc APRN [address] [place] [address] [place], [place] [id number] Social History Tobacco Use Types Packs/Day Years [...] EST Office Visit Obstetrics and Gynecology at [facility] [place] [address] Roma Lara MD [facility] OBSTETRICS [place] [address] 10/27/2024 11:00 AM EST TH Visit (TeleHealth) [place] [address] Kim Gonzalez MD [facility] [place] [address] documented as of this encounter Procedures Procedure Name Priority Date/Time Associated Diagnosis Comments FILM LIBRARY-STORAGE ONLY US BREAST Routine 06/22/2023 12:05 AM EDT documented in this encounter Results * Film Library Storage Only US Breast (06/22/2023 12:05 AM EDT) Narrative [facility] - 07/11/2023 12:51 PM EST This exam is auto-finalizing. It's purpose is for storage only. Dea Kc APRN IMValery FILM LIBRARY ORD ERABLES Performing Organization Address City/State/[facility] Co de Phone Number [place], [place] documented in this encounter Visit Diagnoses Not on filedocumented in this encounter Care Teams Textile Screen Maker Relationship Specialty Start Date End Date Dea Kc APRN [facility] [place] [address] PCP - General Family Medicine 04/12/23 documented as of this encounter
--- OUTSIDE RECORDS SUMMARY | 2024-07-04 03:00 | XMS_ITS | Encounter Summary ---
Author Organization [facility] [place] [address] Care Team Providers Care Therapist Occupational Name Role Phone Dea Kc APRN Primary Care Provider [phone] Encounter Details Date Type Department Care Team (Late st Contact Info) Description 07/19/2023 11:00 AM EST Office Visit Obstetrics [place] [phone] Roma Lara MD [facility] DR OBSTETRICS [place] [address] Vaginal pain; Vaginismus Social History Tobacco Use Types Packs/Day Years [...] Sign Reading Time Taken Comments Blood Pressure 133/79 07/19/2023 10:52 AM EST Pulse 88 07/19/2023 10:52 AM EST Temperature 36.1 ??C (97 ??F) 07/19/2023 10:52 AM EST Respiratory Rate 16 07/19/2023 10:52 AM EST Oxygen Saturation 100% 07/19/2023 10:52 AM EST Inhaled Oxygen Concentration - - Weight 50.3 kg (111 lb) 07/19/2023 10:52 AM EST Height - - Body Mass Index 20.3 05/31/2023 11:06 AM EDT documented in this encounter Progress Notes * Roma Lara MD - 07/19/2023 11:00 AM EST [facility] Follow Up Visit Reason for Visit: Yumi is a 53 y.o. with a history of AUB and fibroids and cervical pain now s/p TLH/BS and urethral sling on 04/25/[address] Moses in urogyn presenting for follow up. Today, patient reports Things are going well Very painful to try intercourse for the first time Tried a few days later, hurt in the beginning but then didn't hurt First time there was some stabbing/poking Hitting cuff was very painful Hurts on initial penetration Had stopped using the estrogen cream during the stomach flu No bleeding with intercourse Normal bowel and bladder function Current Outpatient Medications Medication Sig Dispense Refill turmeric root extract 500 mg capsule daily. tretinoin microspheres (RETIN-A MICRO) 0.1 % Gel daily. hyoscyamine SL (Levsin SL) 0.125 mg sublingual tablet Take 1 tablet by mouth every 4 hours as needed for Cramping. Max 6 pills per day. 30 tablet 3 estradioL (ESTRACE) 0.01 % (0.1 mg/gram) Cream 1g into vagina nightly for 2 weeks 42.5 g 12 oxyCODONE (Roxicodone) 5 mg tablet Take 1 tablet by mouth every 4 hours as needed for Pain. 8 tablet 0 ibuprofen (Advil) 600 mg tablet Take 1 tablet by mouth every 6 hours as needed for Pain. 30 tablet 12 acetaminophen (Tylenol) 325 mg tablet Take 2 tablets by mouth every 4 hours as needed for Pain. 30 tablet 1 prucalopride (Motegrity) 2 mg tablet Take 1 tablet by mouth daily. 90 tablet 1 cholecalciferol, Vitamin D3, 25 mcg [...] FIND Natures bounty (Hair, skin, and nails) polyethylene glycoL (Miralax) 17 gram/dose Powder DISSOLVE 17 GRAMS (LINE IN CAP) IN LIQUID AND DRINK BY MOUTH TWICE DAILY 238 g 1 plecanatide (Trulance) 3 mg Tablet Take 1 tablet by mouth daily. 90 tablet 3 mirabegron (Myrbetriq) 50 mg Tablet Sustained Release 24 hr Take 50 mg by mouth daily. rizatriptan (MAXALT-SAND CUTTER) 10 mg Tablet, Rapid Dissolve Take 10 mg by mouth as needed. pantoprazole EC (Protonix) 40 mg Tablet, Delayed Release (E.C.) Take 40 mg by mouth daily. baclofen (Lioresal) [address] one tab VAGINALLY up to twice per day as needed for muscle spasm 90 tablet 3 No current facility-administered medications for this visit. Allergies Allergen Reactions Fingolimod Venlafaxine Other (See Comments) Headache Aspirin Ibuprofen Amitriptyline Dimethyl Fumarate Fluoxetine Gabapentin exhaustion Glatiramer (Copolymer 1) ROS: Otherwise negative except as specified in HPI. Physical Exam Vitals: 07/19/23 1052 BP: 133/79 Pulse: 88 Resp: 16 Temp: 36.1 ??C (97 ??F) SpO2: 100% Weight: 50.3 kg (111 lb) General: NAD, comfortable, pleasant Lungs: Unlabored breathing Neuro: grossly intact Pelvic: External genitalia: normal Bladder- no masses or tenderness Vagina- pink estrogenized vaginal mucosa, scant physiologic discharge, no blood in the vault, vaginal cuff well healed, mild tenderness at distal part of anterior incision for urogyn procedure but nosuture or wound breakdown seen, levator tenderness Assessment/Plan: Yumi is a 53 y.o. pre menopausal female who presents for vulvar skin check. 1. Vaginal pain baclofen (Lioresal) 10 mg tablet 2. Vaginismus baclofen (Lioresal) 10 mg tablet - Vaginal pain multifactorial with decreased estrogen and muscle spasm - Plan for vaginal estrogen daily 1g x2 weeks, then 2-3 times per week with small dab externally indefinitely - Baclofen pill in vagina up to twice per day for muscles spasms as she can't afford compounded medication at this point - PFPT exercises and she is unable to go to PFPT for tune up at this time - Healing well both at the vaginal cuff and anterior vagina RTC as needed Note to patient: The Century Cures Act makes medical notes like this available to patients in the interest of transparency. However, be advised this is a medical document. It is intended as [id number] communication. It is written in medical language and may contain abbreviations or verbiage that are unfamiliar. Total time spent day of service on chart review, disease discussion and therapeutic counseling, as well as, documentation and coordination of care: 30 min Roma Lara MD 07/20/2023 5:01 PM documented in this encounter Plan of Treatment Upcoming Encounters Date Type Department Care Team (Late st Contact Info) Description 07/17/2024 1:00 PM EST Office Visit Obstetrics [place] [address] Roma Lara MD [facility] DR OBSTETRICS AND [place] [address] 10/27/2024 11:00 AM EST TH Visit (TeleHealth) [place] [address] Kim Gonzalez MD [facility] [place] [address] documented as of this encounter Visit Diagnoses Diagnosis Vaginal pain Unspecified symptom associated with female genital organs Vaginismus documented in this encounter Care Teams Therapist Occupational Relationship Specialty Start Date End Date Dea Kc, [place] [address] PCP - General Family Medicine 04/12/23 documented as of this encounter
--- OUTSIDE RECORDS SUMMARY | 2024-07-04 03:00 | XMS_ITS | Encounter Summary ---
Author Organization [facility] Address [facility] [place] [address] Care Team Providers Care Tool Builder Name Role Phone Dea Kc APRN Primary Care Provider [phone] Encounter Details Date Type Department Care Team (Latest Contact Info) Description 08/16/2023 1:54 PM EST - 08/16/2023 2:16 PM EST Hospital Encounter [place] [address] Yumiko Wang MD [facility] [place] [address] Abnormal finding on breast imaging Discharge Disposition: Home Social History Tobacco Use Types Packs/Day Years Used Date Smoking Tobacco: Former Cigarettes Smokeless Tobacco: Never Alcohol Use Standard Drinks/Week Comments Not Currently 0 (1 standard drink = 0.6 oz pur e alcohol) [facility] Inpatient Questions Answer Date Recorded Does Anyone [...] 50 mg by mouth daily. 05/31/2017 rizatriptan (MAXALT-RETAIL SALES ASSOCIATE) 10 mg Tablet, Rapid Dissolve Take 10 [...] 11/13/2022 10/23/2023 documented as of this encounter Plan of Treatment Upcoming Encounters Date Type Department Care Team (Late st Contact Info) Description 07/17/2024 1:00 PM EST Office Visit Obstetrics [place] [address] Roma Lara MD [facility] DR OBSTETRICS [place] [address] 10/27/2024 11:00 AM EST TH Visit (TeleHealth) [place] [address] Kim Gonzalez MD [facility] [place] [address] documented as of this encounter Procedures Procedure Name Priority Date/Time Associated Diagnosis Comments MAMMO DIAGNOSTIC CAD RIGHT Routine 08/16/2023 2:30 PM EST Abnormal finding on breast imaging documented in this encounter Results * Mammo Diagnostic Cad Right (08/16/2023 2:30 PM EST) Anatomical Region Laterality Modality Breast Right Mammography Impressions 08/16/2023 4:43 PM EST Suspicious RIGHT breast calcifications. A stereotactic biopsy was performed immediately following the diagnostic procedure FINAL ASSESSMENT: BI-RADS Category 4: Suspicious Finding - Biopsy Should Be Considered Thank you for letting us participate in the care of this patient. ??If you are a health care provider and have any questions regarding this report, please contact the number below. ??For patients who have questions please contact the health intensive care anaesthetist that requested your imaging first. ? Electronically signed by: Suzanna Izquierdo MD, [facility] ([phone]), at 08/16/2023 4:43 PM Narrative 08/16/2023 4:43 PM EST DIAGNOSTIC MAMMOGRAPHY OF THE RIGHT BREAST CLINICAL HISTORY: abnormal finding calcifications question skin calcifications TECHNIQUE AND VIEWS OBTAINED: CC and MLO views were obtained of the RIGHT breast. 2D images were obtained. Computer aided detection was used. COMPARISON: Prior images BREAST DENSITY: The breast tissue is heterogeneously dense, which may obscure small masses. FINDINGS: Tangential views were obtained of the calcifications in the upper outer quadrant of the RIGHT breast. The calcifications were shown to be immediately below the skin but not within the skin Yumiko Wang MD IMG MAMMO ORDERAB LES documented in this encounter Visit Diagnoses Diagnosis Abnormal finding on breast imaging Other (abnormal) findings on radiological examination of breast documented in this encounter Care Teams Tool Builder Relationship Specialty Start Date End Date Dea Kc [place] [address] PCP - General Family Medicine 04/12/23 documented as of this encounter
--- OUTSIDE RECORDS SUMMARY | 2024-07-04 03:00 | XMS_ITS | Encounter Summary ---
Author Organization [facility] [place] [address] Care Team Providers Care Grab Operator Name Role Phone Dea Kc APRN Primary Care Provider [phone] Reason for Visit * Reason Onset Date Comments Medication Refill 07/24/2023 Encounter Details Date Type Department Care Team (Late st Contact Info) Description 07/24/2023 Refill [place] [address] Kim Gonzalez MD [facility] [place] [place] [address] Irritable bowel syndrome with constipation Social History [...] EST Office Visit Obstetrics [place] [address] Roma Lara MD [facility] DR [place] [address] 10/27/2024 11:00 AM EST TH Visit (TeleHealth) [place] [address] Kim Gonzalez MD [facility] [place] [place] [address] documented as of this encounter Visit Diagnoses Diagnosis Irritable bowel syndrome with constipation Irritable bowel syndrome documented in this encounter Care Teams Grab Operator Relationship Specialty Start Date End Date Dea Kc APR[place] [address] [place] [address] PCP - General Family Medicine 04/12/23 documented as of this encounter
--- OUTSIDE RECORDS SUMMARY | 2024-07-04 03:00 | XMS_ITS | Encounter Summary ---
Author Organization [facility] [place] [address] Care Team Providers Care Housekeeping Department Worker Name Role Phone Dea Kc APRN Primary Care Provider [phone] Encounter Details Date Type Department Care Team (Late st Contact Info) Description 06/22/2023 Ancillary Procedure Radiology Library at [facility] [place] [phone] Dea Kc APRN [address] [place] [address] [place], [place] [id number] Social History Tobacco Use Types Packs/Day Years Used Date Smoking Tobacco: Former Cigarettes Smokeless Tobacco: Never Alcohol Use Standard Drinks/Week Comments Not Currently 0 (1 standard drink = 0.6 oz pur e alcohol) [facility] Inpatient Questions Answer Date Recorded Does [...] EST Office Visit Obstetrics and Gynecology at [facility] [place] [phone] Roma Lara MD [facility] OBSTETRICS [place] [address] 10/27/2024 11:00 AM EST TH Visit (TeleHealth) [place] [address] Kim Gonzalez MD [facility] [place] [address] documented as of this encounter Procedures Procedure Name Priority Date/Time Associated Diagnosis Comments FILM LIBRARY STORAGE ONLY MAMMO Routine 06/22/2023 12:00 AM EDT documented in this encounter Results * Film Library- Storage Only Mammo (06/22/2023 12:00 AM EDT) Narrative [facility] - 07/11/2023 12:51 PM EST This exam is auto-finalizing. It's purpose is for storage only. Dea Kc APRN IMValery FILM LIBRARY ORD ERABLES [place], [place] documented in this encounter Visit Diagnoses Not on filedocumented in this encounter Care Teams Housekeeping Department Worker Relationship Specialty Start Date End Date Dea Kc APRN [address] [place] [address] PCP - General Family Medicine 04/12/23 documented as of this encounter
--- OUTSIDE RECORDS SUMMARY | 2024-07-04 03:00 | XMS_ITS | Encounter Summary ---
Author Organization [facility] [place] [address] Care Team Providers Care Furnace Clerk Name Role Phone John Rosario FLORENTINO Primary Care Provider [phone] Reason for Visit * Reason Comments Follow-up Encounter Details Date Type Department Care Team (Late st Contact Info) Description 01/22/2023 11:00 AM EDT Office Visit Obstetrics [place] [address] Roma Lara MD [facility] OBSTETRICS [place] [address] Fibroids; Bloating; Chronic pelvic pain in female; Nabothian (gland) cyst or follicle Social History Tobacco Use Types Packs/Day Years [...] Sign Reading Time Taken Comments Blood Pressure 130/74 01/22/2023 11:03 AM EDT Pulse 85 01/22/2023 11:03 AM EDT Temperature 35.2 ??C (95.4 ??F) 01/22/2023 11:03 AM E DT Respiratory Rate 16 01/22/2023 11:03 AM EDT Oxygen Saturation 100% 01/22/2023 11:03 AM EDT Inhaled Oxygen Concentration - - Weight 53.6 kg (118 lb 3.2 oz) 01/22/2023 11:03 AM EDT Height 159 cm (5' 2.6) 01/22/2023 11:03 AM EDT Body Mass Index 21.21 01/22/2023 11:03 AM EDT documented in this encounter Patient Instructions * Patient Instructions* Roma Lara MD - 01/22/2023 11:00 AM EDT CPT 45817 for painful nabothian cysts In OR or hospital procedure room Vaginal trigger point injections with bupivacaine documented in this encounter Progress Notes * Roma Lara MD - 01/22/2023 11:00 AM EDT Images from the original note were not included. ION EXCHANGE OPERATOR Follow Up Visit Reason for Visit: Yumi is a 52 y.o. pre menopausal female who presents for follow up of dyspareunia and nabothian cysts. History of Present Illness: Seen over telehealth 11/2022 at which time: - Reviewed LEEP procedure for management of her painful nabothian cysts - Reviewed could be done in OR or office - Yumi plans to check with Medicare to see if this procedure would be covered for cervical pain/dyspareunia and nabothian cysts - Will have her come in for exam to better evaluate procedure and other possible causes of pain - Pending insurance, can schedule either in office vs OR Has severe pelvic floor issues, the pain is horrendous Didn't realize this was going on until her exam with Dr. Moses [place] is really painful, has the nabothian cysts and fibroids Also has urinary incontinence Of note, her pain has been much better and the stinging sensation of the area on her cervix, when provoked, is much more sporadic Has not yet check with her insurance about coverage as she wasn't sure what we would be doing Has MS and IBS and gastroparesis Has back and leg muscle cramping Flexeril makes her so tired and ruins her day the next day, can't work Gets bad headaches like a hang over Has been doing PFPT for years, new therapist for her for the last 8 weeks was out of work for a year Severe IBS Gynecologic History: LMP: No LMP recorded. (Menstrual status: Contraceptive/Hormone ). On COCs Pregnancies: x1 ION EXCHANGE OPERATOR diagnoses: None ION EXCHANGE OPERATOR surgeries: None ?? Sexually active with partner. ?? Contraception (premenopause): COCs for many years. ?? Last pap last year. Results: normal per patient History of abnormal paps: One 25 years ago, colposcopy Current Outpatient Medications Medication Sig Dispense Refill ??? hyoscyamine SL (Levsin SL) 0.125 mg sublingual tablet Take 1 tablet by mouth every 4 hours as needed for Cramping. Max 6 pills per day. 30 tablet 3 ??? polyethylene glycoL (Miralax) 17 gram/dose Powder DISSOLVE 17 GRAMS (LINE IN CAP) IN LIQUID ANDDRINK BY MOUTH TWICE DAILY 238 g 1 ??? pregabalin (Lyrica) 25 mg Capsule Take 1 capsule by mouth daily in the evening. After 1 week, increase to twice a day. 60 capsule 1 ??? plecanatide (Trulance) 3 mg Tablet Take 1 tablet by mouth daily. 90 tablet 3 ??? prucalopride (Motegrity) 2 mg Tablet Take 1 tablet by mouth daily. 30 tablet 5 ??? mirabegron (Myrbetriq) 50 mg Tablet Sustained Release 24 hr Take 50 mg by mouth daily. ??? rizatriptan (MAXALT-QUARTER TRIMMER) 10 mg Tablet, Rapid Dissolve Take 10 mg by mouth as needed. ??? norethindrone-e.estradioL-iron (Jaida 24 Fe) 1 mg-20 mcg(24) /75 mg (4) Tablet, Chewable Take 1 tablet by mouth daily. ??? pantoprazole EC (Protonix) 40 mg Tablet, Delayed Release (E.C.) Take 40 mg by mouth daily. No current facility-administered medications for this visit. Allergies Allergen Reactions ??? Fingolimod ??? Venlafaxine Other (See Comments) Headache ??? Amitriptyline ??? Dimethyl Fumarate ??? Fluoxetine ??? Gabapentin exhaustion ??? Glatiramer (Copolymer 1) ROS: Otherwise negative except as specified in HPI. Physical Exam Vitals: 01/22/23 1103 BP: 130/74 Pulse: 85 Resp: 16 Temp: 35.2 ??C (95.4 ??F) TempSrc: Temporal SpO2: 100% Weight: 53.6 kg (118 lb 3.2 oz) Height: 159 cm (5' 2.6) General: NAD, comfortable, pleasant Lungs: Unlabored breathing Neuro: grossly intact Pelvic: External genitalia/vulva- normal, no lesions Bartholin's- normal, no masses or tenderness Urethral meatus- normal size, no prolapse, no lesions Vagina- pink estrogenized vaginal mucosa, moderate physiologic discharge, no blood in the vault, nolesions, no levator spasm Bladder- no masses or tenderness Cervix- 3 visible nabothian cysts with ectropion, tenderness in area with no visible nabothian cyst Uterus- defer Adnexa- defer Rectal/perineum- defer Physical Exam Genitourinary: Assessment/Plan: Yumi is a 52 y.o. benja menopausal female who presents for follow up of pelvic pain, nabothian cysts, cervical pain. 1. Fibroids US Transvaginal Non OB 2. Bloating US Transvaginal Non OB 3. Chronic pelvic pain in female US Transvaginal Non OB 4. Nabothian (gland) cyst or follicle US Transvaginal Non OB - Reviewed multifactorial pain syndrome with MSK pain but also cervical pain that may have an MSK component but also seems to be something different given pain with gentle palpation of one spot on cervix but improved levator spasm - Reviewed possible risk to worsening pain or creating new pain with LEEP vs the possibility of it improving her pain by removing that one area - Could first consider lidocaine injections into cervix and into pelvic floor - Also notes more fullness in her pelvis, will update TVUS to determine if fibroids have grown - Discussed coming off SOLO to see if she is still menstruating, patient declines to do so at this time - If fibroids are larger and causing bulk symptoms, could consider hysterectomy with urogyn given concurrent urinary symptoms - Patient to check with insurance provider about coverage options and reach back out Note to patient: The Century Cures Act makes medical notes like this available to patients in the interest of transparency. However, be advised this is a medical document. It is intended as [id number] communication. It is written in medical language and may contain abbreviations or verbiage that are unfamiliar. Total time spent day of service on chart review, disease discussion and therapeutic counseling, as well as, documentation and coordination of care: 20 min Roma Lara MD 01/22/2023 12:48 PM documented in this encounter Plan of Treatment Upcoming Encounters Date Type Department Care Team (Late st Contact Info) Description 07/17/2024 1:00 PM EST Office Visit Obstetrics [place] [address] Roma Lara MD [facility] DR OBSTETRICS [place] [address] 10/27/2024 11:00 AM EST TH Visit (TeleHealth) [place] [address] Kim Gonzalez MD [facility] [place] [address] documented as of this encounter Visit Diagnoses Diagnosis Fibroids Leiomyoma of uterus, unspecified Bloating Flatulence, eructation, and gas pain Chronic pelvic pain in female Unspecified symptom associated with female genital organs Nabothian (gland) cyst or follicle Cervicitis and endocervicitis documented in this encounter Care Teams Furnace Clerk Relationship Specialty Start Date End Date John Rosario DNP [address] [place] [id number] PCP - General Family Medicine 07/23/19 04/11/23 documented as of this encounter
--- OUTSIDE RECORDS SUMMARY | 2024-07-04 03:00 | XMS_ITS | Encounter Summary ---
Author Organization [facility] [place] [address] Care Team Providers Care Jackaroo Name Role Phone John Rosario [facility] Primary Care Provider [phone] Reason for Visit * Reason Comments Medication Refill Encounter Details Date Type Department Care Team (Late st Contact Info) Description 11/13/2022 Refill [place] [phone] Frank Bhardwaj MD [facility] [place] [address] Irritable bowel syndrome with constipation Social History Tobacco Use Types Packs/Day Years Used Date Smoking Tobacco: Former Smokeless Tobacco: Never Alcohol Use Standard Drinks/Week [...] EST Office Visit Obstetrics [place] [phone] Roma Lara MD [facility] [place] [address] 10/27/2024 11:00 AM EST TH Visit (TeleHealth) [place] [address] Kim Gonzalez MD [facility] [place] [address] documented as of this encounter Visit Diagnoses Diagnosis Irritable bowel syndrome with constipation Irritable bowel syndrome documented in this encounter Care Teams Jackaroo Relationship Specialty Start Date End Date John Rosario DNP [address] [place] [address] PCP - General Family Medicine 07/23/19 04/11/23 documented as of this encounter
--- OUTSIDE RECORDS SUMMARY | 2024-07-04 03:00 | XMS_ITS | Encounter Summary ---
Author Organization [facility] [place] [address] Care Team Providers Care Social Security Specialist Name Role Phone John Rosario FLORENTINO Primary Care Provider [phone] Reason for Visit * Reason Onset Date Comments Medication Refill 04/02/2023 Encounter Details Date Type Department Care Team (Late st Contact Info) Description 04/02/2023 Ref[place] [phone] Kim Gonzalez MD [facility] [place] [address] Irritable bowel syndrome with constipation Social History [...] EST Office Visit Obstetrics [place] [phone] Roma Lara MD [facility] DR OBSTETRICS [place] [address] 10/27/2024 11:00 AM EST TH Visit (TeleHealth) [place] [address] Kim Gonzalez MD [facility] [place] [address] documented as of this encounter Visit Diagnoses Diagnosis Irritable bowel syndrome with constipation Irritable bowel syndrome documented in this encounter Care Teams Social Security Specialist Relationship Specialty Start Date End Date John Rosario DNP [address] [place] [address] PCP - General Family Medicine 07/23/19 04/11/23 documented as of this encounter
--- OUTSIDE RECORDS SUMMARY | 2024-07-04 03:00 | XMS_ITS | Encounter Summary ---
[place] [address] Care Team Providers Care Service Operations Manager Name Role Phone John Rosario FLORENTINO Primary Care Provider [phone] Reason for Visit * Reason Onset Date Comments Prior Authorization 11/14/2022 Motegrity 2m g Encounter Details Date Type Department Care Team (Late st Contact Info) Description 11/14/2022 Telephone [place] [address] Nerissa Lentz CMA Prior Authorization (Motegrity 2mg) Social History Tobacco Use Types Packs/Day Years [...] encounter Miscellaneous Notes * Telephone Encounter - Porsha Lang MA - 11/28/2022 10:34 AM EDTSummary: PA Approval Motegrity 2mg Images from the original note were not included. PA Outcome: PA Approval Medication Prior Authorization Approval Approved: MOTEGRITY 2MG Start Date: 11/28/2022 End Date: 11/29/2023 Case/Reference #: [id number] Approval Letter will be scanned into media once received. * Telephone Encounter - Cherise Blanton, PATHOLOGY SUPERVISOR - 11/28/2022 9:28 AM Delroy EWING more info request Images from the original note were not included. Faxed to [phone]: Kim Gonzalez MD Physician, Gastroenterology Progress Notes ?? Encounter Date: 11/13/2022 Expand All Collapse All [facility] Section of Gastroenterology and Hepatology Follow-up Telemedicine Visit ?? PCP: John Rosario, POWER TRANSFORMER REPAIRER ?? HPI ?? 52 y.o. female following up for IBS-C and gastroparesis. ?? Goals: improved QoL, get back to work ?? GI PROBLEM LIST 1. Gastroparesis <--> functional dyspepsia: NM GE scan abnormal 15% delayed, avoids high fat/high fiber. Symptoms sound more FD-like. Nausea is significant, had vomiting when significantly constipated. ? Prefers to avoid meds with potential significant side effects like reglan ? Hates mike ? Nauzene helps some ?? 2. IBS-C (intense pain when misses one day without a BM), severe, out of work, impact on QoL. Question pelvic floor dysfunction given limited consultation. Consider slow transit. Anxiety. ? Colonoscopies last in 2018 (x 4) reportedly normal, 2017 for bleeding ? Reportedly negative celiac serology ? CTE negative 2013 ? Trials include Miralax BID (effective, needed to have loose stools to move her bowels), Dulcolax (rescue, just 1 - works but really unpleasant, up all night), Milk of Magnesium 1x/wk, Linzess (gassy - multiple trials, a couple of weeks only 2/2 to pain), Amitiza (nausea, bloated - multiple trials, only a couple of weeks 2/2 to pain), Peppermint capsules (helpful), Amitriptyline, low FODMAP diet(helpful temporarily), gluten-free diet, phazyme & gas-X (not helpful), motegrity (since Sep 2020, no relief) ? Pelvic floor testing declined; PT eval reported descent of pelvic floor - limited eval - discharged - stretches sometimes help to move stool, laying side to side, child's pose, lying on back, downward dog ? As of Sep 2021: Using trulance, peppermint NOW Brand 1 BID, Miralax 2 capfuls/day, does home exercises and familiar with diaphragmatic breathing ? As of November 2022: Using trulance daily and motegrity PRN (had it flipped previously and this seemed less desirable) TRIALS ??? Miralax BID (effective) ??? Milk of Magnesium 1x/wk ??? Linzess (gassy - multiple trials, a couple of weeks only 2/2 to pain) ??? Amitiza (nausea, bloated - multiple trials, only a couple of weeks 2/2 to pain) - did not make her feel good and doesn't want to try again ??? Peppermint capsules - helpful ??? Amitriptyline ??? Low FODMAP diet - helpful ??? Gluten-free diet ??? Motegrity - partial benefit, some more frequent BMs after being off it for a while (when used in combo with Miralax and dulcolax PRN) ??? Phazyme - no relief ??? Gas-X - no relief ??? Gabapentin - fatigue (x 1 month), listed as allergy ??? Cymbalta - headache, fatigue ??? Dicyclomine - makes tired ??? Iberogast x 1 mo - no change ??? Suppositories not helpful ??? Dulcolax - works but really unpleasant, up all night, multiple loose stools ??? Cymbalta - tried it for 1.5 weeks, headaches, hangover feeling, fatigued ??? Fluoxetine listed as allergy ??? Has tried buspar in the past for anxiety - fatigued with this also ??? Trulance - somewhat helped with agonizing double over pain, but a lot more bloating and gas -did not increase frequency of BMs ??? Cognitive Behavioral??Therapy for Pain??Group - went to 1 session only ??? Hyoscyamine - helps her release gas, does make her tired, takes at night * Telephone Encounter - Jo Peraza LNA - 11/27/2022 4:48 PM EDTSjak: requested decision letter. Faxed to [phone] Dear [place] [employer], Confidential Health Information. We submitted a prior authorization request on 2022. We have not received any decision letter. Please fax letter to [facility] department: Atten: Nerissa [phone]. Request for:Yumi Batista : 1970 ID#:[id number], for Motegrity 2MG tablets. Thank You, PERICO Villasenor [facility] PA Department * Telephone Encounter - Nerissa Lentz CMA - 11/14/2022 2:52 PM EDT Summary: PA Medication Prior Authorization Patient: Yumi Batista Patient : 1970 Insurance Company: [place] Medicaid Sent via: [facility] [place]: [id number] Physician: Kim Gonzalez MD Medication Requested: Motegrity 2MG tablets Frequency/Sig: Take 1 tablet by mouth daily. Disp: 30 Refills: 5 Currently taking: yes If yes, how lon07/10/2022-current Diagnosis for this medication: Irritable bowel syndrome with constipation (K58.1) Prior medications trialed in this patient: Prior medications trialed in this patient: Miralax, Dulcolax, Milk of Magnesia, Linzess, Amitiza, Trulance Additional Notes: documented in this encounter Plan of Treatment Upcoming Encounters Date Type Department Care Team (Late st Contact Info) Description 07/17/2024 1:00 PM EST Office Visit Obstetrics [place] [address] Roma Lara MD [facility] OBSTETRICS [place] [address] 10/27/2024 11:00 AM EST TH Visit (TeleHealth) [place] [address] Kim Gonzalez MD [facility] [place] [address] documented as of this encounter Visit Diagnoses Not on filedocumented in this encounter Care Teams Service Operations Manager Relationship Specialty Start Date End Date John Rosario DNP [address] [place] [address] PCP - General Family Medicine 07/23/19 04/11/23 documented as of this encounter
--- OUTSIDE RECORDS SUMMARY | 2024-07-04 03:00 | XMS_ITS | Encounter Summary ---
[place] [address] Care Team Providers Care Director Of Solutions Architecture Name Role Phone Dea Kc APRN Primary Care Provider [phone] Encounter Details Date Type Department Care Team (Late st Contact Info) Description 04/26/2023 10:30 AM EDT Telephone Obstetrics [place] [address] Social History Tobacco Use Types Packs/Day Years Used Date Smoking Tobacco: Former Cigarettes Smokeless Tobacco: Never Alcohol Use Standard Drinks/Week Comments Not Currently 0 (1 standard drink = 0.6 oz pur e alcohol) [facility] Inpatient Questions Answer Date Recorded Does Anyone [...] encounter Miscellaneous Notes * Telephone Encounter - Marie Walls RN - 04/26/2023 10:38 AM EDT Opened in error documented in this encounter Plan of Treatment Upcoming Encounters Date Type Department Care Team (Late st Contact Info) Description 07/17/2024 1:00 PM EST Office Visit Obstetrics [place] [address] Roma Lara MD [facility] OBSTETRICS [place] [address] 10/27/2024 11:00 AM EST TH Visit (TeleHealth) [place] [phone] Kim Gonzalez MD [facility] [place] [address] documented as of this encounter Visit Diagnoses Not on filedocumented in this encounter Care Teams Director Of Solutions Architecture Relationship Specialty Start Date End Date Dea Kc, CORE ANALYSIS OPERATOR [place] [place] [address] PCP - General Family Medicine 04/12/23 documented as of this encounter
--- OUTSIDE RECORDS SUMMARY | 2024-07-04 03:00 | XMS_ITS | Encounter Summary ---
Author Organization [facility] [place] [address] Care Team Providers Care Contact Lens Cutter Name Role Phone De Dea Marie APRN Primary Care Provider [phone] Encounter Details Date Type Department Care Team (Late st Contact Info) Description 06/07/2023 Telephone [place] [address] Marj Montes Social History Tobacco Use Types Packs/Day Years Used Date Smoking Tobacco: Former Cigarettes Smokeless Tobacco: Never Alcohol Use Standard Drinks/Week Comments Not Currently 0 (1 standard drink = 0.6 oz pur e alcohol) [facility] Inpatient Questions Answer Date Recorded [...] EST Office Visit [place]st[place] [address] Roma Lara MD [facility] DR OBSTETRICS [place] [address] 10/27/2024 11:00 AM EST TH Visit (TeleHealth) [place] [address] Kim Gonzalez MD [facility] [place] [address] documented as of this encounter Visit Diagnoses Not on filedocumented in this encounter Care Teams Contact Lens Cutter Relationship Specialty Start Date End Date Dea Kc, [facility] [place] [address] PCP - General Family Medicine 04/12/23 documented as of this encounter
--- OUTSIDE RECORDS SUMMARY | 2024-07-04 03:00 | XMS_ITS | Encounter Summary ---
Author Organization [facility] [place] [address] Care Team Providers Care Charge Hand Name Role Phone Dea Kc APRN Primary Care Provider [phone] Reason for Visit * Reason Comments Post Op Encounter Details Date Type Department Care Team (Late st Contact Info) Description 05/31/2023 11:20 AM EDT Office Visit Obstetrics [place] [address] Roma Lara MD [facility] DR OBSTETRICS [place] [address] Dysuria Social History Tobacco Use Types Packs/Day Years [...] Sign Reading Time Taken Comments Blood Pressure 134/88 05/31/2023 11:06 AM EDT Pulse 77 05/31/2023 11:06 AM EDT Temperature 36.6 ??C (97.9 ??F) 05/31/2023 11:06 AM E DT Respiratory Rate 16 05/31/2023 11:06 AM EDT Oxygen Saturation 100% 05/31/2023 11:06 AM EDT Inhaled Oxygen Concentration - - Weight 52.2 kg (115 lb) 05/31/2023 11:06 AM EDT Height 157.5 cm (5' 2) 05/31/2023 11:06 AM EDT Body Mass Index 21.03 05/31/2023 11:06 AM EDT documented in this encounter Progress Notes * Roma Lara MD - 05/31/2023 11:20 AM EDT Gynecology Postoperative Visit Yumi Peraza is a 53 y.o. with a history of AUB and fibroids and cervical pain now s/p TLH/BS and urethral sling on 04/25/[address] Moses in urogyn presenting for postop appointment. Patient reports: Feels well Beginning was a little rough Bleeding: Minor spotting up until last week Pain: No longer taking pain medications Fevers: Denies Incisions: Healing well Bowel function: Has some pain still with BM but this is getting better, feels weak and painful Bladder function: Still hurts to urinate, kind of like a bladder infection, feels that she is voiding every 2 hours over night, wakes her with pain to go Intraoperative findings: EUA revealed multiparous cervix with ectropion, mobile, normal sized uterus, no adnexal masses. Laparoscopically, uterus with two fibroids, one right, anterior lower uterine segment and the second right, mid lateral consistent with ultrasound. Normal bilateral fallopian tubes and small, normal bilateral ovaries. No endometriosis or scar tissue appreciated. Ureters coursing well below surgical field. Grossly normal liver edge and bowel. Notably, left ureter ran OVER leftuterine artery. Cystoscopy revealed no intracavitary injury and strong bilateral ureteral jets. Pathology: A - Uterus, cervix, bilateral fallopian tubes, hysterectomy and bilateral salpingectomy: - Inactive endometrium. - Leiomyomata with stromal hyalinization and focal microcalcification. - Benign cervix with Nabothian cysts. - Bilateral fallopian tubes with no significant pathologic abnormalities. Physical exam: Patient Vitals for the past 24 hrs: Temp Pulse Resp BP SpO2 05/31/23 1106 36.6 ??C (97.9 ??F) 77 16 134/88 100 % General: NAD, comfortable, pleasant Lungs: Unlabored breathing Abdomen: soft, nontender, nondistended; incisions healing well Neuro: grossly intact Pelvic: External genitalia/vulva- normal, no lesions Bartholin's- normal, no masses or tenderness Urethral meatus- normal size, no prolapse, no lesions Vagina- pink estrogenized vaginal mucosa, scant physiologic discharge, no blood in the vault, cuff with some granulation tissue and suture visible, but intact Bladder- no masses or tenderness Cervix- surgically absent Uterus- surgically absent Adnexa- defer Rectal/perineum- defer Assessment and plan: Yumi Peraza is a 53 y.o. with a history of AUB and fibroids andcervical pain now s/p TLH/BS and urethral sling on 04/25/[address] Moses in urogyn presenting for postop appointment. - Reviewed intraop findings and pathology - Cuff with granulation tissue but intact, 2 weeks of vaginal estrogen - Udip for bladder symptoms, only with trace blood - Pelvic rest for 2-3 more weeks until follow up - Can return to work with lifting restrictions RTC in 2-3 months Patient's questions were answered and I encouraged the patient to reach out with any questions. Roma Lara MD 05/31/2023 11:17 AM documented in this encounter Plan of Treatment Upcoming Encounters Date Type Department Care Team (Late st Contact Info) Description 07/17/2024 1:00 PM EST Office Visit Obstetrics [place] [address] Roma Lara MD [facility] OBSTETRICS [place] [address] 10/27/2024 11:00 AM EST TH Visit (TeleHealth) [place] [address] Kim Gonzalez MD [facility] [place] [address] documented as of this encounter Procedures Procedure Name Priority Date/Time Associated Diagnosis Comments POCT URINE DIPSTICK Routine 05/31/2023 Dysuria documented in this encounter Results * POCT urine dipstick (05/31/2023) POC Sp [place] 1.015 1.002 - 1.030 POC pH, UA 5 5.0 - 8.5 POC Leuk, UA negative Negative - Negative POC Nitrite, UA negative Negative - Negative POC Protein, UA negative Negative - Negative mg/dL POC Glucose, UA normal Normal - Normal mg/dL POC Ketone, UA negative Negative - Negative POC Urobil, UA normal 0.2 - 1.0 mg/dL POC Bili, UA negative Negative - Negative POC Blood, UA trace Negative - Negative gloria/uL Roma Lara MD POINT OF CARE TEST O RDERABLES documented in this encounter Visit Diagnoses Diagnosis Dysuria documented in this encounter Care Teams Charge Hand Relationship Specialty Start Date End Date Dea Kc APRN [address] [place] [address] PCP - General Family Medicine 04/12/23 documented as of this encounter
--- OUTSIDE RECORDS SUMMARY | 2024-07-04 03:00 | XMS_ITS | Encounter Summary ---
Author Organization [facility]ly [facility] [place] [address] Care Team Providers Care Windows Systems Admin Name Role Phone John Rosario DNP Primary Care Provider [phone] Encounter Details Date Type Department Care Team (Late st Contact Info) Description 02/05/2023 3:20 PM EDT Ancillary Procedure Radiology Library at [facility] [place] [id number] John Rosario DNP [address] [place] [id number] Social History Tobacco Use Types Packs/Day Years [...] EST Office Visit Obstetrics [place] [address] Roma Lara MD [facility] OBSTETRICS AND GYNECOLOGY [place], [place] [id number] 10/27/2024 11:00 AM EST TH Visit (TeleHealth) [place] [address] Kim Gonzalez MD [facility] [place] [address] documented as of this encounter Procedures Procedure Name Priority Date/Time Associated Diagnosis Comments FILM LIBRARY STORAGE ONLY ULTRASOUND STUDY Routine 02/05/2023 3:15 PM EDT documented in this encounter Results * Film Library- Storage Only Ultrasound Study (02/05/2023 3:15 PM EDT) Narrative [facility] - 02/05/2023 3:15 PM EDT This exam is auto-finalizing. It's purpose is for storage only. John Rosario DNP IMG FILM LIBRARY OR DERABLES Performing Organization Address City/State/[facility] Co de Phone Number [place], [place] documented in this encounter Visit Diagnoses Not on filedocumented in this encounter Care Teams Windows Systems Admin Relationship Specialty Start Date End Date John Rosario DNP [address] [place] [address] PCP - General Family Medicine 07/23/19 04/11/23 documented as of this encounter
--- OUTSIDE RECORDS SUMMARY | 2024-07-04 03:00 | XMS_ITS | Encounter Summary ---
Author Organization [facility] [place] [address] Care Team Providers Care Assistant City Attorney Name Role Phone Dea Kc APRN Primary Care Provider [phone] Encounter Details Date Type Department Care Team (Latest Contact Info) Description 07/18/2023 Travel Social History Tobacco Use Types Packs/Day [...] EST Office Visit Obstetrics [place] [address] Roma Lara MD [facility] DR OBSTETRICS [place] [address] 10/27/2024 11:00 AM EST TH Visit (TeleHealth) [place] [address] Kim Gonzalez MD [facility] [place] [address] documented as of this encounter Visit Diagnoses Not on filedocumented in this encounter Care Teams Assistant City Attorney Relationship Specialty Start Date End Date Dea Kc, MEDIA COORDINATOR [facility] [place] [address] PCP - General Family Medicine 04/12/23 documented as of this encounter
--- OUTSIDE RECORDS SUMMARY | 2024-07-04 03:00 | XMS_ITS | Encounter Summary ---
Author Organization [facility] [place] [address] Care Team Providers Care Fleet Administrative Assistant Name Role Phone De Dea Marie APRN Primary Care Provider [phone] Reason for Visit * Reason Onset Date Comments Medication Refill 04/15/2023 Encounter Details Date Type Department Care Team (Late st Contact Info) Description 04/15/2023 Refill [place] [address] Kim Gonzalez MD [facility] [place] [address] Irritable bowel syndrome with constipation Social History [...] EST Office Visit Obstetrics [place] [address] Roma Lara MD [facility] [address] OBSTETRICS [place] [address] 10/27/2024 11:00 AM EST TH Visit (TeleHealth) [place] [address] Kim Gonzalez MD [facility] [place] [address] documented as of this encounter Visit Diagnoses Diagnosis Irritable bowel syndrome with constipation Irritable bowel syndrome documented in this encounter Care Teams Fleet Administrative Assistant Relationship Specialty Start Date End Date Dea Kc, HEALTHCARE PROF [facility] [place] [address] PCP - General Family Medicine 04/12/23 documented as of this encounter
--- OUTSIDE RECORDS SUMMARY | 2024-07-04 03:00 | XMS_ITS | Encounter Summary ---
Author Organization [facility] [place] [address] Care Team Providers Care Stockroom Supervisor Name Role Phone Dea Kc APRN Primary Care Provider [phone] Reason for Visit * Reason Onset Date Comments Medication Refill 08/01/2023 Encounter Details Date Type Department Care Team (Late st Contact Info) Description 08/01/2023 Refill [place] [address] Kim Gonzalez MD [facility] [place] [address] Irritable bowel syndrome with constipation Social History [...] EST Office Visit Obstetrics [place] [address] Roma Lara MD [facility] [address] OBSTETRICS [place] [address] 10/27/2024 11:00 AM EST TH Visit (TeleHealth) [place] [address] Kim Gonzalez MD [facility] [place] [address] documented as of this encounter Visit Diagnoses Diagnosis Irritable bowel syndrome with constipation Irritable bowel syndrome documented in this encounter Care Teams Stockroom Supervisor Relationship Specialty Start Date End Date Dea Kc APR[place] [address] [place] [address] PCP - General Family Medicine 04/12/23 documented as of this encounter
--- OUTSIDE RECORDS SUMMARY | 2024-07-04 03:00 | XMS_ITS | Encounter Summary ---
Author Organization [facility] [place] [address] Care Team Providers Care Van Loader Name Role Phone Dea Kc APRN Primary Care Provider [phone] Encounter Details Date Type Department Care Team (Latest Contact Info) Description 04/12/2023 Travel Social History Tobacco Use Types Packs/Day [...] EST Office Visit Obstetrics [place] [address] [facility] [address] [place]ST[place] [address] 10/27/2024 11:00 AM EST TH Visit (TeleHealth) [place] [phone] [facility] [place] [address] documented as of this encounter Visit Diagnoses Not on filedocumented in this encounter Care Teams Van Loader Relationship Specialty Start Date End Date Dea Kc APRN [address] [place] [address] PCP - General Family Medicine 04/12/23 documented as of this encounter
--- OUTSIDE RECORDS SUMMARY | 2024-07-04 03:00 | XMS_ITS | Encounter Summary ---
[place] [address] Care Team Providers Care Client Integration Manager Name Role Phone Dea Kc APRN Primary Care Provider [phone] Reason for Visit * Reason Onset Date Comments Post Procedure Call 04/26/2023 Encounter Details Date Type Department Care Team (Late st Contact Info) Description 04/26/2023 Telephone [place]etric[place] [phone] Alvin Borrero LPN Post Procedure Call Social History Tobacco Use Types Packs/Day Years Used Date Smoking Tobacco: Former Cigarettes Smokeless Tobacco: Never Alcohol Use Standard Drinks/Week Comments Not Currently 0 (1 standard drink = 0.6 oz pur e alcohol) [facility] Inpatient Questions Answer Date Recorded Does Anyone [...] encounter Miscellaneous Notes * Telephone Encounter - Alvin Borrero LPN - 04/26/2023 10:44 AM EDT POST-OP TELEPHONE UPDATE Date of Surgery:04/25/23 Preoperative diagnosis: Fibroids, pelvic pain, cervical pain [...] DESCRIBES TOTAL LAPAROSCOPIC HYSTERECTOMY, BILATERAL SALPINGECTOMY, CYSTOSCOPY Overall well-being: I am in a lot of pain but doing well for the most part. Pain?: 02/10 Pain medication working(Y/N)?: yes Location of pain: generalized Bladder function: change in urine stream but emptying without problems Bowel function: no, positive flatus I feel things moving discharge instructions reviewed Ambulating: Yes Tolerating solids / liquids: she has only been eating bread since getting home as she had an isolated episode of emesis from the car ride home. She will advance to a normal diet today. Encouraged small frequent meals with emphasis on protein to help with recovery. Dressings: surgical glue clean dry intact Incisions: clean, dry and intact Vaginal bleeding: Yes scant bleeding precautions reviewed Fever: no Post Op appointment booked? Yes, she would like a time later in the day as she comes [facility]. Instructions: We reviewed phone contacts. The patient will call triage at during daytime hours or during the evening or weekends and ask for the news production assistant senior java web application developer if she is having problems. ALVIN BORRERO LPN documented in this encounter Plan of Treatment Upcoming Encounters Date Type Department Care Team (Late st Contact Info) Description 07/17/2024 1:00 PM EST Office Visit Obstetrics [place] [address] Roma Chino MD [facility] OBSTETRICS [place] [address] 10/27/2024 11:00 AM EST TH Visit (TeleHealth) [place] [address] Kim Gonzalez MD [facility] [place] [address] documented as of this encounter Visit Diagnoses Not on filedocumented in this encounter Care Teams Client Integration Manager Relationship Specialty Start Date End Date Dea Kc APRN [facility] [place] [address] PCP - General Family Medicine 04/12/23 documented as of this encounter
--- OUTSIDE RECORDS SUMMARY | 2024-07-04 03:00 | XMS_ITS | Encounter Summary ---
[place] [address] Care Team Providers Care Box Spinner Name Role Phone John Rosario FLORENTINO Primary Care Provider [phone] Reason for Visit * Reason Onset Date Comments Follow-up 03/07/2023 Encounter Details Date Type Department Care Team (Late st Contact Info) Description 03/07/2023 Telephone Obstetrics [place] [phone] Lilia Carvajal RN Follow-up Social History Tobacco Use Types Packs/Day Years [...] encounter Miscellaneous Notes * Telephone Encounter - Lilia Carvajal RN - 03/07/2023 12:41 PM EDT Pt is having hysterectomy 04/25/23 with . Pt had discussed stress incontinence with provider. Per appt could be set up for assessment and doing a combo case for stress incontinence. Pt would like to discuss options. Appt to be made. documented in this encounter Plan of Treatment Upcoming Encounters Date Type Department Care Team (Late st Contact Info) Description 07/17/2024 1:00 PM EST Office Visit Obstetrics [place] [address] Roma Lara MD [facility] OBSTETRICS [place] [address] 10/27/2024 11:00 AM EST TH Visit (TeleHealth) [place] [address] Kim Gonzalez MD [facility] [place] [address] documented as of this encounter Visit Diagnoses Not on filedocumented in this encounter Care Teams Box Spinner Relationship Specialty Start Date End Date John Rosario DNP [address] [place] [address] PCP - General Family Medicine 07/23/19 04/11/23 documented as of this encounter
--- OUTSIDE RECORDS SUMMARY | 2024-07-04 03:00 | XMS_ITS | Encounter Summary ---
[place] [address] Care Team Providers Care Egg Worker Name Role Phone Dea Kc APRN Primary Care Provider [phone] Reason for Referral * Consultation (Urgent) - Duplicate Referral Specialty Diagnoses / Procedures Referred By Contac t Referred To Contact Breast Clinic / Breast Center Diagnoses Mass of breast, unspecified laterality Abnormal mammogram Dea Kc APRN [address] [address] [facility] [address] [place] [address] Referral ID Status Reason Start Date Expiration Date Visits Requested Visits Authorized [id number] Duplicate Referral Consult, Test & Treat PCP Updated and/or Approved 3 07/01/2024 6 6 Encounter Details Date Type Department Care Team (Latest Contact Info) Description 07/02/2023 Transcribe Orders eDH Incoming Referrals [phone] Dea Kc APRN [address] [place], [place] [id number] Mass of breast, unspecified laterality; Abnormal mammogram Social History Tobacco Use Types Packs/Day Years [...] EST Office Visit Obstetrics [place] [address] Roma Lara MD [facility] [address] OBSTETRICS [place] [address] 10/27/2024 11:00 AM EST TH Visit (TeleHealth) [place] [address] Kim Gonzalez MD [facility] [place] [address] Scheduled Referrals Name Type Priority Associated Diagnoses Order Schedule Referral to Comprehensive Breast Program Outpatient Referral Urgent Mass of breast, unspecified laterality Abnormal mammogram Ordered: 07/02/2023 documented as of this encounter Visit Diagnoses Diagnosis Mass of breast, unspecified laterality Abnormal mammogram Abnormal mammogram, unspecified documented in this encounter Care Teams Egg Worker Relationship Specialty Start Date End Date Dea Kc APRN [facility] [place] [address] PCP - General Family Medicine 04/12/23 documented as of this encounter
--- OUTSIDE RECORDS SUMMARY | 2024-07-04 03:00 | XMS_ITS | Encounter Summary ---
Author Organization [facility] [place] [address] Care Team Providers Care Agricultural Chemist Name Role Phone Dea Kc APRN Primary Care Provider [phone] Encounter Details Date Type Department Care Team (Late st Contact Info) Description 04/12/2023 3:00 PM EDT Office Visit Obstetrics [place] [address] Roma Lara MD [facility] [address] OBSTETRICS [place] [address] Fibroids; Chronic pelvic pain in female Social History Tobacco Use Types Packs/Day Years [...] Progress Notes * Roma Lara MD - 04/12/2023 3:00 PM EDT Images from the original note were not included. Gynecology Preoperative History and Physical Exam Date of Visit: 04/12/2023 Planned Surgery Date: 04/25/2023 Planned Procedure: Total laparoscopic hysterectomy, bilateral salpingectomy, cystoscopy; Joint procedure with Dr. Moses Indications/Pre-op Diagnosis: Abnormal uterine bleeding HISTORY OF PRESENT ILLNESS: Ms. Peraza is a 53 y.o. who presents for preoperative examination. Patient with history of symptomatic fibroids and pelvic pain, desires surgical management. Please see prior encounter notes on 02/26/2023 for more detail. Since our last visit: Has seen linda Boone for joint urogyn surgery REVIEW OF SYMPTOMS/FUNCTIONAL STATUS: Chest pain: Denies Shortness of breath: Denies Can you walk 1/2 mile or more? Yes Can you go up more than 2 flights of stairs? Yes Patient can dress herself? Yes Prepare meals herself? Yes Bleeding disorder (h/o nose bleeds, excessive bleeding following a surgical procedure?): Denies Personal or Family history of blood clots?: Denies knowledge of family history Sexually active?: Yes Last PAP smear: 2020 Past anesthesia problems?: Denies LMP: No LMP recorded. (Menstrual status: Contraceptive/Hormone ). Pregnancies: x1 ULTRASONIC WELDING MACHINE OPERATOR diagnoses: None ULTRASONIC WELDING MACHINE OPERATOR surgeries: None Sexually active with partner. Contraception (premenopause): COCs for many years. Past Medical History: Diagnosis Date Abnormal uterine bleeding (AUB) Anxiety Dyspareunia due to medical condition in female Fibroid uterus H/O gastric ulcer Migraine w & wo aura Past Surgical History: Procedure Laterality Date APPENDECTOMY SINUS SURGERY Social hx: Social History Social History Narrative Not on file Allergies Allergen Reactions Fingolimod Venlafaxine Other (See Comments) Headache Amitriptyline Dimethyl Fumarate Fluoxetine Gabapentin exhaustion Glatiramer (Copolymer 1) No outpatient medications have been marked as taking for the 04/12/23 encounter (Office Visit) with Roma Lara MD. PHYSICAL EXAM No data found. EXAM: General: alert/oriented x 3, NAD, cooperative IMPRESSION: Yumi Peraza is a 53 y.o. with chronic pelvic pain who desires surgical management with Total laparoscopic hysterectomy, bilateral salpingectomy, cystoscopy. A detailed discussion with the patient regarding the surgical risks of a Total laparoscopic hysterectomy, bilateral salpingectomy, cystoscopy were reviewed. The patient states understanding that infection, blood loss, damage to other organ systems, nerves and blood vessels can occur during an operative procedure. I reviewed in detail the risk of bowel and bladder injury, including injury or possible transection to the ureters. Intraoperative and wound infection was reviewed including bladder infection. Postoperative recovery was reviewed, including the risk of bowel adhesions, ileus, incisional hernia formation and VTE risk. The patient was given time to ask pertinent questions and states she feels satisfied that she understands the risks and would like to proceed with the procedure(s) listed above. All other alternatives including nonsurgical options reviewed with patients. Reviewed risks and benefits of oopherectomy, decreased risk of ovarian cancer, need for HRT for menopausal symptoms, likely no significant risk of osteoporosis or CAD bases on newer data. Patient desires to keep ovaries in situ. All questions answered. PLAN: We will proceed with the above procedures on 04/25/2023. Preoperative: Anesthesia preference: GETA Antibiotics: 2g Ancef, 500mg Flagyl Allergies to iodine, betadine, chlorhexadine, shellfish, lidocaine, marcaine, tape or latex: Denies Anticoagulation: SCDs Medications and herbal preparations reviewed: Reviewed Discussed: (X) Discontinuation of all herbal preparations, vitamin E 7-10 days preop (X) ASA, NSAIDS, Plavix: Reviewed (X) Hormones: Will stop COCs following surgery (X) Discontinue solid foods at midnight (X) Clear liquids (water, apple juice, mike destin, or black coffee) may be consumed until 2 hours prior to scheduled procedure. (X) Carbohydrate beverage provided: Provided (X) Hibiclens provided: Provided Need for specific case order (Type 2 DM, anxiety, drive time, etc): [address], would like to not be first case of the day Postoperative: Transportation contact: Discharge plan: Home but pending urogyn procedure and recovery Medications: routine outpatient meds Opioid Risk Tool Female Male 1. Family history of Substance Abuse Alcohol [] 1 [] 3 Illegal Drugs [] 2 [] 3 Prescription Drugs [] 4 [] 4 2. Personal History of Substance Abuse Alcohol [] 3 [] 3 Illegal Drugs [] 4 [] 4 Prescription Drugs [] 5 [] 5 3. Age (jose a box if 16-45) [] 1 [] 1 4. History of Preadolescent Sexual Abuse [] 3 [] 0 5. Psychological Disease Attention Deficit Disorder, Obsessive Compulsive D/o, Bipolar, Schizophrenia [] 2 [] 2 Depression [] 1 [] 1 TOTAL: 0 Comments about ORT in relation to this patient: Opioid Risk Category: low risk 0-3 We discussed opioid consent concerns such as tolerance, addiction and side effects of medication. Rare risks of overdose and noted. We discussed possible crime victimization concerns and safe storage and proper disposal of medication. Opioid consent not available today but will sign on day ofsurgery. As part of the consent for surgery, we reviewed that there are health care personnel who are trainees at [facility] [employer] [facility], which includes medical students, resident physicians, and fellows. As a part of the start of any surgery, a pelvic exam is usually performed by the attending physician and resident physician which then may be repeated by a medical student with supervision. The patient does not give her permission for a medical student to perform an exam under anesthesia. Consent: Signed in the office Total time spent day of service on chart review, disease discussion and therapeutic counseling, as well as, documentation and coordination of care: 40 min Roma Lara MD 04/12/2023 3:40 PM documented in this encounter Plan of Treatment Upcoming Encounters Date Type Department Care Team (Late st Contact Info) Description 07/17/2024 1:00 PM EST Office Visit Obstetrics [place] [address] Roma Lara MD [facility] [address] OBSTETRICS [place] [address] 10/27/2024 11:00 AM EST TH Visit (TeleHealth) [place] [address] Kim Gonzalez MD [facility] [place] [address] documented as of this encounter Visit Diagnoses Diagnosis Fibroids Leiomyoma of uterus, unspecified Chronic pelvic pain in female Unspecified symptom associated with female genital organs documented in this encounter Care Teams Agricultural Chemist Relationship Specialty Start Date End Date Dea Kc APRN [facility] [place] [address] PCP - General Family Medicine 04/12/23 documented as of this encounter
--- OUTSIDE RECORDS SUMMARY | 2024-07-04 03:00 | XMS_ITS | Encounter Summary ---
Author Organization [facility] [address] Care Team Providers Care Body Service Team Member Name Role Phone Dea Kc APRN Primary Care Provider [phone] Encounter Details Date Type Department Care Team (Latest Contact Info) Description 06/21/2023 Travel Social History Tobacco Use Types Packs/Day [...] EST Office Visit Obstetrics [place] [address] Roma Lara MD [facility] [address] OBSTETRICS [place] [address] 10/27/2024 11:00 AM EST TH Visit (TeleHealth) [place] [address] Kim Gonzalez MD [facility] [place] [address] documented as of this encounter Visit Diagnoses Not on filedocumented in this encounter Care Teams Body Service Team Member Relationship Specialty Start Date End Date Dea Kc, ELECTRONIC PARTS SALESPERSON [facility] [place] [address] PCP - General Family Medicine 04/12/23 documented as of this encounter
--- OUTSIDE RECORDS SUMMARY | 2024-07-04 03:00 | XMS_ITS | Encounter Summary ---
Author Organization [facility] [place] [address] Care Team Providers Care Mill And Coal Transport Operator Name Role Phone Dea Kc APRN Primary Care Provider [phone] Reason for Visit * Reason Onset Date Comments Medication Refill 08/01/2023 Encounter Details Date Type Department Care Team (Late st Contact Info) Description 08/01/2023 Refill [place] [address] Kim Gonzalez MD [facility] [place] [address] Irritable bowel syndrome with constipation Social History [...] Office Visit Obstetrics [place] [address] Roma Lara MD [facility] [address] OBSTETRICS [place] [address] 10/27/2024 11:00 AM EST TH Visit (TeleHealth) [place] [address] Kim Gonzalez MD [facility] [place] [address] documented as of this encounter Visit Diagnoses Diagnosis Irritable bowel syndrome with constipation Irritable bowel syndrome documented in this encounter Care Teams Mill And Coal Transport Operator Relationship Specialty Start Date End Date Dea Kc APRN [place] [address] PCP - General Family Medicine 04/12/23 documented as of this encounter
--- OUTSIDE RECORDS SUMMARY | 2024-07-04 03:00 | XMS_ITS | Encounter Summary ---
Author Organization [facility] [place] [address] Care Team Providers Care Hop Farm Worker Name Role Phone Dea Kc APRN Primary Care Provider [phone] Encounter Details Date Type Department Care Team (Latest Contact Info) Description 05/31/2023 Travel Social History Tobacco Use Types Packs/Day [...] EST Office Visit Obstetrics [place] [address] Roma Lara MD [facility] [address] OBSTETRICS [place] [address] 10/27/2024 11:00 AM EST TH Visit (TeleHealth) [place] [address] Kim Gonzalez MD [facility] [address] documented as of this encounter Visit Diagnoses Not on filedocumented in this encounter Care Teams Hop Farm Worker Relationship Specialty Start Date End Date Dea Kc, SADDLE LINING STITCHER [facility] [place] [address] PCP - General Family Medicine 04/12/23 documented as of this encounter
--- OUTSIDE RECORDS SUMMARY | 2024-07-04 03:00 | XMS_ITS | Encounter Summary ---
Author Organization [facility] [place] [address] Care Team Providers Care Skoog Machine Operator Name Role Phone Dea Kc APRN Primary Care Provider [phone] Reason for Visit * Reason Comments Post Op Encounter Details Date Type Department Care Team (Late st Contact Info) Description 06/21/2023 11:00 AM EDT Office Visit Obstetrics [place] [address] Nicole Atkinson MD [facility] [place] [address] Overactive bladder; Stress incontinence Social History Tobacco Use Types Packs/Day Years [...] Sign Reading Time Taken Comments Blood Pressure 136/80 06/21/2023 11:11 AM EDT Pulse 80 06/21/2023 11:11 AM EDT Temperature 37.2 ??C (98.9 ??F) 06/21/2023 11:11 AM E DT Respiratory Rate - - Oxygen Saturation 100% 06/21/2023 11:11 AM EDT Inhaled Oxygen Concentration - - Weight 53.6 kg (118 lb 3.2 oz) 06/21/2023 11:11 AM EDT Height - - Body Mass Index 21.62 05/31/2023 11:06 AM EDT documented in this encounter Patient Instructions * Patient Instructions* Nicole Atkinson MD - 06/21/2023 11:00 AM EDT The plan we discussed today: Activity: Maintain lifting restriction to no more than 20# for 2-4 weeks, then gradually return to normal. Resume intercourse in 4 weeks, or slightly sooner if you feel ready. Pelvic floor exercises 10 reps 2-3 times daily to maintain pelvic floor strength. Fine to resume pelvic floor physical therapy if you wish. Resume vaginal estrogen as comfortable, using finger to apply rather than applicator. Can change totwice weekly. Overactive bladder: Continue mirabegron 50mg XL daily Start Azo Maximum (phenoazopyridine) take 100-200mg by mouth up to three times daily to see if it reduces urethral pain with voiding. Try bladder retraining with urge suppression; handout reviewed. Will reach out to Dr. Lara regarding need for 2-3 month follow up with her per prior note. Return in several months / PRN to reassess; send a message if ongoing nighttime awakening and/or mild bladder pain. documented in this encounter Progress Notes * Nicole Atkinson MD - 06/21/2023 11:00 AM EDT FEMALE PELVIC MEDICINE AND RECONSTRUCTIVE SURGERY POST OPERATIVE VISIT Patient Active Problem List Diagnosis Code Functional dyspepsia K30 Chronic constipation K59.09 Adjustment disorder F43.20 Irritable bowel syndrome with constipation K58.1 Gastroparesis K31.84 Date of visit: 06/21/2023 Patient name: Yumi Peraza Date of surgery: 04/25/23 Procedure: Retropubic midurethral sling, cystoscopy; concurrent with TLH/BS with Dr. Lara (whom she saw for follow up 2 weeks ago) Pathology: Surgical Pathology DIAGNOSIS A - Uterus, cervix, bilateral fallopian tubes, hysterectomy and bilateral salpingectomy: - Inactive endometrium. - Leiomyomata with stromal hyalinization and focal microcalcification. - Benign cervix with Nabothian cysts. - Bilateral fallopian tubes with no significant pathologic abnormalities. Electronically signed by: Thang Nguyen MD Verified: 04/30/2023 9:18 Pathologist Performed at: -[facility] Dept. of Pathology, [place] [address] Rn Behavioral Health: Jennifer Medina MD, [facility], [facility] Certificate: [id number] Subjective: Ms. Peraza is s/p the above procedures. She has been tolerating a regular diet. hedenies nausea and vomiting, and she has been afebrile since surgery. She is back to normal bowel movements. She has not had any stress urinary incontinence despite cough and sneeze, which was a definite improvment. She continues to have slight urgency, suprapubic discomfort (no dysuria), but some pain in the urethra that is like a mild pain without the burning. This is much better than it was initially. Immediately postoperative, she did not look forward to voiding because of it. She has tried tylenol and ibuprofen for a while after the surgery, and still uses on occasion for pre-surgery back pain. A new symptom for her is to wake with some urgency to void at night, about 3-4 times per night, present since immediately postoperative. Prior to surgery she woke 1 time per night with no urgency. Now, during the day she voids about every Ms. Peraza has been taking long walks since 2 weeks postoperative, and as of end of May, resumed weight routine (16# free) with Dr. Lara's approval. She is feeling well. She has been working in her job 5hr/week standing, and avoiding lifting more than 20#. Her employer is understanding. Eventually she will resume lifting as much as 40-50# at work. At visit with Dr. Lara, slight granulation tissue was noted at the cuff, which I will examine today. Dr. Lara recommended applying vaginal estrogen, and she had discomfort with the applicator andstopped using it. Ms. Peraza stopped pelvic floor physical therapy about a month before her hysterectomy, and would consider resuming if appropriate. Since surgery, she reports: None Continued vaginal bleeding Stopped a week after Jane visit with discovery of cuff granulation tissue New pelvic related pain Yes, slight with voiding, see HPI Abnormal vaginal discharge Burning with urination Blood in urine Enuresis New prolapse symptoms since surgery Bladder Function Number of daytime voids: 8 Number of nocturia events: 3-4 (previously 1) Urinary incontinence since surgery (y/n): 0 If yes, [place] Incontinence Severity Index: How often do you experience urinary leakage? 0. Never 1. Less than once a month 2. A few times a month 3. A few times a week 4. Every day and/or night Value 0 How much urine do you lose each time? 0. None 1. Drops 2. Small Splashes 3. More Value 0 The Severity Index is the product of the two questions 0 - NONE 1-2 Slight 3-6 Moderate 8-9 Severe 12 Very severe SCORE: 0 If yes, leaks with: Event Presence Event Presence NONE x [place] Walking Cold Weather Running Anticipation of going to the lavatory Cough/Sneeze First morning void Lifting Running water Laughing Other Number of pads / day: none Voiding Dysfunction: Symptom Presence NONE Straining to empty Incomplete emptying Weak stream Feeling the urge to void after voiding Yes, sometimes Dribbling Changes in position Difficulty initiating a stream Bowel Function Fecal incontinence since surgery? (stool/gas) no How many fecal incontinence episodes / week? N/a How often do you have bowel movements? 2/day Any new defecatory problems since surgery?: no IF so which defecatory problem?: Symptom Presence Symptom Presence NONE y Require laxatives regularly yes Difficulty emptying Less than three bowel movements / week Need to strain Urgency Hard stools Other Loose stools As at baseline Treatment Outcome Satisfaction How would you describe your level of satisfaction with your treatment outcome? 0. Strongly UNsatisfied 1. UNsatisfied 2. Neither satisfied nor unsatisfied 3. Satisfied 4. Strongly satisfied Value 3 Would you recommend this therapy to a friend?: yes How much has your treatment outcome met your before treatment expectation? 0. Strongly NOT met my before treatment expectations 1. Not met my before treatment expectations 2. Undecided 3. Met my before treatment expectations 4. Strongly met my before treatment expectations 2 OBJECTIVE: BP 136/80 Pulse 80 Temp 37.2 ??C (98.9 ??F) Wt 53.6 kg (118 lb 3.2 oz) SpO2 100% BMI 21.62 kg/m?? Bladder scan: 20 Urine Dip: normal 2-3 weeks ago, not repeated General: normal appearing female, pleasant mood, normal speech Abdomen: Abdomen soft, non-tender, no masses. Surgical incision(s): Suprapubic incisions well healed. Skin edges well applied. No evidence of erythema or induration. Back: Non-tender, without costovertebral angle or paraspinal tenderness Pelvic: Cough stress test (empty supine): neg External Genitalia: Vulva, [place]'s and Bartholin glands normal, urethra without tenderness or mass Vagina: Tissue pink, well rugated, anterior vaginal wall well approximated with no remaining suture. One area of tenderness to palpation to left of midline Discharge?: Moderate yellowish Cervix: surgically absent Bimanual (uterus/adnexa): vaginal cuff well healed, nontender, adnexa not palpable, no masses, wellsupported Impression: Ms. Peraza is a 53 y.o. year old woman now 6 wks s/p TLH/BS, retropubic midurethral sling, cystoscopy, healing well. She does have some persistent but improving urinary urgency, nocturia, and mild suprapubic and urethral pain. Vaginal cuff granulation tissue noted approximately 2-3 weeks ago has nearly resolved, with ongoing epithelialization at the edges of the cuff. We discussed that she may have a small hematoma near the bladder that has led to increased urinary urgency and nocturia; could have worsening overactive bladder, but hopefully will see ongoing improvement in the next few months. If symptoms are not improving in 2-4 months, could resume pelvic floorphysical therapy and also discuss other interventions. Plan: Activity: Maintain lifting restriction to no more than 20# for 2-4 weeks, then gradually return to normal. Resume intercourse in 4 weeks, or slightly sooner if you feel ready. Pelvic floor exercises 10 reps 2-3 times daily to maintain pelvic floor strength. Fine to resume pelvic floor physical therapy if you wish. Resume vaginal estrogen as comfortable, using finger to apply rather than applicator. Can change totwice weekly. Overactive bladder: Continue mirabegron 50mg XL daily Start Azo Maximum (phenoazopyridine) take 100-200mg by mouth up to three times daily to see if it reduces urethral pain with voiding. Try bladder retraining with urge suppression; handout reviewed. Will reach out to Dr. Lara regarding need for 2-3 month follow up with her per prior note. Return in several months / PRN to reassess; send a message if ongoing nighttime awakening and/or mild bladder pain. Nicole Atkinson MD Division of Female Pelvic Medicine/Reconstructive Surgery documented in this encounter Miscellaneous Notes * Addendum Note - Rosey Sotelo LNA - 06/21/2023 11:00 AM EDTAddended by: ROSEY SOTELO on: 06/21/2023 01:45 PM Modules accepted: Orders * Addendum Note - Nicole Atkinson MD - 06/21/2023 11:00 AM EDTAddended by: NICOLE ATKINSON on: 06/21/2023 03:21 PM Modules accepted: Orders documented in this encounter Plan of Treatment Upcoming Encounters Date Type Department Care Team (Late st Contact Info) Description 07/17/2024 1:00 PM EST Office Visit Obstetrics [place] [address] Roma Lara MD [facility] DR OBSTETRICS [place] [address] 10/27/2024 11:00 AM EST TH Visit (TeleHealth) [place] [address] Kim Gonzalez MD [facility] [place] [address] documented as of this encounter Procedures Procedure Name Priority Date/Time Associated Diagnosis Comments BLADDER SCANNER Routine 06/21/2023 Stress incontinence documented in this encounter Results * Bladder Scanner (06/21/2023) Bladder Scan (mL) 20 mL Nicole Atkinson MD URO PROC W/O RFL ORD ERABLES documented in this encounter Visit Diagnoses Diagnosis Overactive bladder Hypertonicity of bladder Stress incontinence Female stress incontinence documented in this encounter Care Teams Skoog Machine Operator Relationship Specialty Start Date End Date Dea Kc APRN [address] [place] [address] PCP - General Family Medicine 04/12/23 documented as of this encounter
--- OUTSIDE RECORDS SUMMARY | 2024-07-04 03:00 | XMS_ITS | Encounter Summary ---
Author Organization [facility] [place] [address] Care Team Providers Care Lead Burner Apprentice Name Role Phone John Rosario DNP Primary Care Provider [phone] Encounter Details Date Type Department Care Team (Late st Contact Info) Description 03/08/2023 Telephone Obstetrics [place] [address] Bud Figueroa Social History Tobacco Use Types Packs/Day Years [...] EST Office Visit Obstetrics [place] [address] Roma Lara MD [facility] DR OBSTETRICS [place] [address] 10/27/2024 11:00 AM EST TH Visit (TeleHealth) [place] [phone] Kim Gonzalez MD [facility] [place] [address] documented as of this encounter Visit Diagnoses Not on filedocumented in this encounter Care Teams Lead Burner Apprentice Relationship Specialty Start Date End Date John Rosario DNP [address] [place] [id number] PCP - General Family Medicine 07/23/19 04/11/23 documented as of this encounter
--- OUTSIDE RECORDS SUMMARY | 2024-07-04 03:00 | XMS_ITS | Encounter Summary ---
Author Organization [facility] [place] [address] Care Team Providers Care Charge Master Coordinator Name Role Phone John Rosario DNP Primary Care Provider [phone] Encounter Details Date Type Department Care Team (Latest Contact Info) Description 01/22/2023 Travel Social History Tobacco Use Types Packs/Day [...] EST Office Visit Obstetrics [place] [address] Roma Lara MD [facility] DR OBSTETRICS [place] [address] 10/27/2024 11:00 AM EST TH Visit (TeleHealth) [place] [phone] Kim Gonzalez MD [facility] [place] [address] documented as of this encounter Visit Diagnoses Not on filedocumented in this encounter Care Teams Charge Master Coordinator Relationship Specialty Start Date End Date John Rosario DNP [address] [place] [address] PCP - General Family Medicine 07/23/19 04/11/23 documented as of this encounter
--- OUTSIDE RECORDS SUMMARY | 2024-07-04 03:00 | XMS_ITS | Encounter Summary ---
Author Organization [facility] [place] [address] Care Team Providers Care Valet Parker Name Role Phone John Rosario FLORENTINO Primary Care Provider [phone] Reason for Visit * Reason Onset Date Comments Medication Refill 12/06/2022 Encounter Details Date Type Department Care Team (Late st Contact Info) Description 12/06/2022 Refill [place] [phone] Radha Finch APRN [facility] [place] [address] Irritable bowel syndrome with constipation Social History [...] EST Office Visit Obstetrics [place] [phone] Roma Lara MD [facility] [address] [place] [address] 10/27/2024 11:00 AM EST TH Visit (TeleHealth) [place] [address] Kim Gonzalez MD [facility] [place] [address] documented as of this encounter Visit Diagnoses Diagnosis Irritable bowel syndrome with constipation Irritable bowel syndrome documented in this encounter Care Teams Valet Parker Relationship Specialty Start Date End Date John Rosario DNP [address] [place] [id number] PCP - General Family Medicine 07/23/19 04/11/23 documented as of this encounter
--- OUTSIDE RECORDS SUMMARY | 2024-07-04 03:00 | XMS_ITS | Encounter Summary ---
[place] [address] Care Team Providers Care Employment Law Attorney Name Role Phone Dea Kc APRN Primary Care Provider [phone] Encounter Details Date Type Department Care Team (Late st Contact Info) Description 07/02/2023 Telephone Hematology [place] [address] Irene Jones Social History Tobacco Use Types Packs/Day Years Used Date Smoking Tobacco: Former Cigarettes Smokeless Tobacco: Never Alcohol Use Standard Drinks/Week Comments Not Currently 0 (1 standard drink = 0.6 oz pur e alcohol) [facility] Inpatient Questions Answer Date Recorded [...] encounter Miscellaneous Notes * Telephone Encounter - Irene Jones - 07/02/2023 12:32 PM EDT Yumi Peraza 1970 [id number] Referring provider: Dea Kc Date of Referral: 06/28/23 Please review outside breast imaging dated: Reason for exam and clinical history:right breast calcs Category:4 Questions to be answered:BX Sending Institution: [facility] Patient would like treatment at: Call pt at: documented in this encounter Plan of Treatment Upcoming Encounters Date Type Department Care Team (Late st Contact Info) Description 07/17/2024 1:00 PM EST Office Visit Obstetrics [place] [phone] Roma Lara MD [facility] DR OBSTETRICS [place] [address] 10/27/2024 11:00 AM EST TH Visit (TeleHealth) [place] [phone] Kim Gonzalez MD [facility] [place] [address] documented as of this encounter Visit Diagnoses Not on filedocumented in this encounter Care Teams Employment Law Attorney Relationship Specialty Start Date End Date Dea Kc APRN [address] [place] [address] PCP - General Family Medicine 04/12/23 documented as of this encounter
--- OUTSIDE RECORDS SUMMARY | 2024-07-04 03:00 | XMS_ITS | Encounter Summary ---
Author Organization [facility] [address] Care Team Providers Care Construction Sales Manager Name Role Phone John Rosario DNP Primary Care Provider [phone] Encounter Details Date Type Department Care Team (Latest Contact Info) Description 04/06/2023 Travel Social History Tobacco Use Types Packs/Day [...] EST Office Visit Obstetrics [place] [address] Roma aLra MD [facility] DR OBSTETRICS [place] [address] 10/27/2024 11:00 AM EST TH Visit (TeleHealth) [place] [phone] Kim Gonzalez MD [facility] DR [place] [address] documented as of this encounter Visit Diagnoses Not on filedocumented in this encounter Care Teams Construction Sales Manager Relationship Specialty Start Date End Date John Rosario DNP [address] [place] [address] PCP - General Family Medicine 07/23/19 04/11/23 documented as of this encounter
--- OUTSIDE RECORDS SUMMARY | 2024-07-04 03:00 | XMS_ITS | Encounter Summary ---
Author Organization [facility] [place] [address] Care Team Providers Care Watch Crystal Edge Grinder Name Role Phone John Rosario FLORENTINO Primary Care Provider [phone] Encounter Details Date Type Department Care Team (Latest Contact Info) Description 03/16/2023 2:15 PM EDT TH Visit (TeleHealth) Obstetrics [place] [id number] Nicole Moses MD [facility] [place] [address] Stress incontinence Social History Tobacco Use Types [...] as of this encounter Progress Notes * Constantine Juarez, PERICO - 03/16/2023 2:15 PM EDT __X__ Patient not reached; left message with callback number. ____Patient reached and the following information was reviewed/obtained per protocol. ___Confirmed patient name and date of ___Confirmed tele med appt (Virtual visit) is downloaded and functioning ___Confirmed location of patient- TeleVisit is taking place in [place]__ [place]__ [place]__ If not on [facility], working on signing up for my DH Confirmed has completed any pre-visit questionnaires If has not received required previsit questionnaires, send via [facility] ___Reviewed medications, allergies, pharmacy, pain/depression, education ___Documented height/weight/LMP Other information or concerns: * Nicole Moses MD - 03/16/2023 2:15 PM EDT Female Pelvic Medicine and Reconstructive Surgery Follow-Up Telephone Encounter Patient Active Problem List Diagnosis Code Dyspepsia R10.13 Chronic constipation K59.09 Adjustment disorder F43.20 Irritable bowel syndrome with constipation K58.1 ID/PRIOR EVALUATION: Yumi Peraza is a 53 y.o. year-old with a history of stress urinary incontinence and overactive bladder treated with mirabegron. Her history is also significant for stable multiple sclerosis, abnormal uterine bleeding with fibroid uterus. She is planning a hysterectomy shortly, and wonders about concurrent urogynecologic surgery. SUBJECTIVE: Ms. Peraza continues to have stress urinary incontinence with cough/sneeze (full bladder) and also with activity. Her mother had onset of bad urinary incontinence about 10 years after her hysterectomy. Based on symptoms, it sounds like mixed urinary incontinence. OBJECTIVE: Not available for this telehealth visit. ASSESSMENT: Yumi Peraza is a 53 y.o. year old woman with: Stress urinary incontinence Overactive bladder We discussed that at our prior visit, there was no evidence of uterovaginal prolapse, thus I would not recommend any additional prolapse-related procedures. Multiple sclerosis could somewhat contribute to some urinary symptoms, in particular the overactivebladder. We discussed that at the time of the hysterectomy, we could proceed with an anti-incontinence procedure to reduce or resolve the stress urinary incontinence. We discussed that the midurethral sling is most effective treatment for stress urinary incontinence, is a less invasive surgery than the non-mesh surgeries, and last longer. We discussed surgeries for stress urinary incontinence, including: synthetic midurethral sling (most effective option in both short- and long-tern; 3% risk of mesh exposure requiring minor surgical procedure; 2% risk of urinary retention requiring self-catheterization followed by sling release, and potential recurrence of stress urinary incontinence) autologous fascial midurethral sling (slightly less effective than synthetic sling, but without risks of mesh) autologous pubovaginal sling (harvest rectus fascia; less effective & more invasive; I would not recommend for her) and laparoscopic retropubic urethropexy (Horn procedure with permanent suture; less effective & somewhat more invasive) We discussed that urethral bulking injection would not be appropriate for her based on her relatively mild stress urinary incontinence. She is debating whether to proceed with concurrent antiincontinence procedure, and wants to avoid invasive surgery. After learning more about the options, thinks she would prefer to have the mesh midurethral sling. We discussed location and healing of incisions, and importance of delaying postoperative intercourse for 6-8 weeks, occasionally longer. Antiincontinence surgery is indicated procedurethat should be covered by insurance. Her insurance is [place] Medicaid, and they told her that theycould not find out whether codes were covered.We discussed that I can send her information about mesh use in gynecologic surgery and about the midurethral sling for review, and then follow up based on her further reflection. We will try to coordinate preoperative visit with Dr. Lara and plan to perform full bladder coughstress test at that time, and to complete our surgical planning and sign consent. PLAN: Send handouts (mesh use in gynecologic surgery, AUGS position statement on midurethral sling[place] [address]. Route concern about determining coverage status She has a preoperative visit with Dr. Lara on 04/12, and has surgery scheduled for 04/25/23. Plan provided in writing to the patient. I spent 34 minutes with the patient. I obtained the patient's consent to receiving health care services at [facility] through telemedicine. We discussed the opportunities and limitations of delivering health care services through telemedicine. I told the patient that the telemedicine service is being delivered over a secure connection, except in the event of emergency conditions when such requirements may be waived. Patient agreed to the participation of other individuals assisting with their care by telemedicine, if indicated. Patient informed that telemedicine informed consent form is available for patient's review in [facility]'s patient portal, [facility]. Patient verbally consents to this telephone visit and understands that this visit may be billed, similar to a clinic office visit. RTC for preoperative visit on 04/12/23 before or after her visit with Dr. Lara. Nicole Moses MD Female Pelvic Medicine and Reconstructive Surgery documented in this encounter Plan of Treatment Upcoming Encounters Date Type Department Care Team (Late st Contact Info) Description 07/17/2024 1:00 PM EST Office Visit Obstetrics [place] [address] Roma Lara MD [facility] DR OBSTETRICS [place] [address] 10/27/2024 11:00 AM EST TH Visit (TeleHealth) [place] [address] Kim Gonzalez MD [facility] [place] [address] documented as of this encounter Visit Diagnoses Diagnosis Stress incontinence Female stress incontinence documented in this encounter Care Teams Watch Crystal Edge Grinder Relationship Specialty Start Date End Date John Rosario DNP [address] [place] [address] PCP - General Family Medicine 07/23/19 04/11/23 documented as of this encounter
--- OUTSIDE RECORDS SUMMARY | 2024-07-04 03:00 | XMS_ITS | Encounter Summary ---
Author Organization [facility] [place] [address] Care Team Providers Care Music Instructor Name Role Phone Dea Kc APRN Primary Care Provider [phone] Encounter Details Date Type Department Care Team (Latest Contact Info) Description 06/19/2023 Travel Social History Tobacco Use Types Packs/Day [...] EST Office Visit Obstetrics [place] [address] Roma Lara MD [facility] DR [place] [address] 10/27/2024 11:00 AM EST TH Visit (TeleHealth) [place] [address] Kim Gonzalez MD [facility] [place] [address] documented as of this encounter Visit Diagnoses Not on filedocumented in this encounter Care Teams Music Instructor Relationship Specialty Start Date End Date Dea Kc, SURVEILLANCE OFFICER [facility] [place] [address] PCP - General Family Medicine 04/12/23 documented as of this encounter
--- OUTSIDE RECORDS SUMMARY | 2024-07-04 03:00 | XMS_ITS | Encounter Summary ---
Author Organization [facility] [address] Care Team Providers Care Velvet Steamer Name Role Phone Dea Kc APRN Primary Care Provider Reason for Visit * (Routine) - Closed Specialty Diagnoses / Procedures Referred By Contac t Referred To Contact Radiology Diagnoses Breast calcification, right Procedures Request for 2nd read Mammo Dea Kc, [address] [place] [address] Referral ID Status Reason Start Date Expiration Date Visits Re quested Visits Authorized [id number] Closed 07/18/2023 07/17/2024 1 1 Encounter Details Date Type Department Care Team (Latest Contact Info) Description 07/18/2023 1:10 PM EST Ancillary Procedure Radiology Library at [facility] [place] [address] Dea Kc, [address] [place] [address] Breast calcification, right Social History Tobacco Use Types Packs/Day Years Used Date Smoking Tobacco: Former Cigarettes Smokeless Tobacco: Never Alcohol Use Standard Drinks/Week Comments Not Currently 0 (1 standard drink = 0.6 oz pur e alcohol) [facility] Inpatient Questions Answer Date Recorded Does Anyone [...] EST Office Visit Obstetrics [place] [phone] Roma Lara MD [facility] OBSTETRICS [place] [address] 10/27/2024 11:00 AM EST TH Visit (TeleHealth) [place] [address] Kim Gonzalez MD [facility] [place] [address] documented as of this encounter Procedures Procedure Name Priority Date/Time Associated Diagnosis Comments REQUEST FOR 2ND READ MAMMO Routine 07/18/2023 1:07 PM EST Breast calcification, right documented in this encounter Results * Request for 2nd read Mammo (07/18/2023 1:07 PM EST) Anatomical Region Laterality Modality SO Impressions 07/19/2023 9:07 AM EST 0.4 cm group of pleomorphic calcifications posterior right upper outer breast 10 to 11:00 position, suspicious. Skin work up is suggested. If skin calcifications are excluded, biopsy is recommended. FINAL ASSESSMENT: BI-RADS Category 4: Suspicious Finding - Biopsy Should Be Considered Please note: The interpretation of the [facility] Breast Imaging Radiologist subspecialist may differ from the original radiologists interpretation. This is usually not due to a deficiency of the original interpreting radiologist, rather due to the greater skill level afforded by sub-specialization in the field and/or reasonable variations in interpretations. If you have a concern regarding the [facility] interpretation you may contact the [facility] Supervisor Office at . Thank you for letting us participate in the care of this patient. ??If you are a health care provider and have any questions regarding this report, please contact the number below. ??For patients who have questions please contact the health care mgr that requested your imaging first. ? Electronically signed by: Yumiko Wang MD, [facility] ([phone]), at 07/19/2023 9:07 AM Narrative 07/19/2023 9:07 AM EST INTERPRETATION OF OUTSIDE BREAST IMAGING I have been asked to consult on this patient because a review of this study may change or alter the care of this patient. STUDIES FROM: [facility] CLINICAL HISTORY: ? BX; Sending Institution [facility]; Date of exam [id number]; I believe a reinterpretation of this exam may alter care of Patient. Yes; RIGHT BREAST CALCS, CAT 4. ?? DATES and TYPE OF EXAM: Mammographic workup June 22, 2023 with comparisons from 2012, 2014, 2018, 2018, and 2020 all from an outside institution. COMPARISONS: As noted above BREAST DENSITY: The breast tissue is extremely dense, which lowers the sensitivity of mammography. FINDINGS: There is a 4 mm group of pleomorphic calcifications in the far posterior right upper outer breast 10 to 11:00 position. Magnification views confirm their presence. On the jaron images, this group of calcifications is quite superficial; a skin workup would be appropriate to exclude a calcified skin lesion. If these are not in the skin, they would be considered suspicious and biopsy should be performed Procedure Note Yumiko Wang MD - 07/19/2023 INTERPRETATION OF OUTSIDE BREAST IMAGING I have been asked to consult on this patient because a review of thisstudy may change or alter the care of this patient. STUDIES FROM: [facility] CLINICAL HISTORY: ? BX; Sending Institution [facility]; Date ofexam [id number]; I believe a reinterpretation of this exam may alter care ofPatient. Yes; RIGHT BREAST CALCS, CAT 4. DATES and TYPE OF EXAM: Mammographic workup June 22, 2023 withcomparisons from 2012, 2014, 2017, 2018, and 2020 all from an outside institution. COMPARISONS: As noted above BREAST DENSITY: The breast tissue is extremely dense, which lowers the sensitivity of mammography. FINDINGS: There is a 4 mm group of pleomorphic calcifications in the far posteriorright upper outer breast 10 to 11:00 position. Magnification views confirmtheir presence. On the jaron images, this group of calcifications is quitesuperficial; a skin workup would be appropriate to exclude a calcified skin lesion. Ifthese are not in the skin, they would be considered suspicious and biopsy shouldbe performed IMPRESSION 0.4 cm group of pleomorphic calcifications posterior right upper outerbreast 10 to 11:00 position, suspicious. Skin work up is suggested. If skincalcifications are excluded, biopsy is recommended. FINAL ASSESSMENT: BI-RADS Category 4: Suspicious Finding - Biopsy Should Be Considered Please note: The interpretation of the [facility] BreastImaging Radiologist subspecialist may differ from the original radiologists interpretation. This is usually not due to a deficiency of the original interpreting radiologist, rather due to the greater skill level affordedby sub-specialization in the field and/or reasonable variations ininterpretations. If you have a concern regarding the -H interpretation [facility] may [facility] Supervisor Office at . Thank you for letting us participate in the care of this patient. If youare a health care provider and have any questions regarding this report,please contact the number below. For patients who have questions please contactthe health care mgr that requested your imaging first. Electronically signed by: Yumiko Wang MD, [facility]([phone]), at 07/19/2023 9:07 AM Dea Kc PERSONNEL ADVISER IMG OUTSIDE INTERPRE TATION ORDERABLES documented in this encounter Visit Diagnoses Diagnosis Breast calcification, right Other (abnormal) findings on radiological examination of breast documented in this encounter Care Teams Velvet Steamer Relationship Specialty Start Date End Date Dea Kc, PERSONNEL ADVISER [facility] [place] [address] PCP - General Family Medicine 04/12/23 documented as of this encounter
--- OUTSIDE RECORDS SUMMARY | 2024-07-04 03:00 | XMS_ITS | Encounter Summary ---
[place] [address] Care Team Providers Care Wet Wheeler Name Role Phone John Rosario DNP Primary Care Provider [phone] Encounter Details Date Type Department Care Team (Late st Contact Info) Description 04/03/2023 Telephone Obstetrics [place] [phone] Sharon Wick Social History Tobacco Use Types Packs/Day Years [...] encounter Miscellaneous Notes * Telephone Encounter - Sharon Wick - 04/03/2023 9:11 AM EDT ----- Message from Nicole Moses MD sent at 04/03/2023 1:09 AM EDT ----- Hi, Would you please schedule a preoperative visit with me on 04/12/23 at either 2:15pm or after Dr. Lemos's 3pm preoperative visit? Please mention to the patient that I noted that available time as a chance for us to do a repeat exam that will be helpful, and to meet in person to review any questions and make the final plan for the antiincontinence procedure. Alcon Rivera documented in this encounter Plan of Treatment Upcoming Encounters Date Type Department Care Team (Late st Contact Info) Description 07/17/2024 1:00 PM EST Office Visit Obstetrics [place] [address] Roma Lara MD [facility] OBSTETRICS [place] [address] 10/27/2024 11:00 AM EST TH Visit (TeleHealth) [place] [phone] Kim Gonzalez MD [facility] [place] [address] documented as of this encounter Visit Diagnoses Not on filedocumented in this encounter Care Teams Wet Wheeler Relationship Specialty Start Date End Date John Rosario DNP [address] [place] [id number] PCP - General Family Medicine 07/23/19 04/11/23 documented as of this encounter
--- OUTSIDE RECORDS SUMMARY | 2024-07-04 03:00 | XMS_ITS | Encounter Summary ---
Author Organization [facility] [address] Care Team Providers Care Foreclosure Clerk Name Role Phone De Dea Marie APRN Primary Care Provider [phone] Encounter Details Date Type Department Care Team (Late st Contact Info) Description 04/25/2023 Interpretation Only Radiology [address] [place] [address] [place] [phone] Unknown None Social History Tobacco Use Types Packs/Day Years Used Date Smoking Tobacco: Former Cigarettes Smokeless Tobacco: Never Alcohol Use Standard Drinks/Week Comments Not Currently 0 (1 standard drink = 0.6 oz pur e alcohol) [facility] Inpatient Questions Answer Date Recorded [...] EST Office Visit Obstetrics [place] [address] Roma Lara MD [facility] OBSTETRICS AND GYNECOLOGY [place], [place] [id number] 10/27/2024 11:00 AM EST TH Visit (TeleHealth) [place] [address] Kim Gonzalez MD [facility] [address] documented as of this encounter Procedures Procedure Name Priority Date/Time Associated Diagnosis Comments DH OR ENDOSCOPY Routine 04/25/2023 documented in this encounter Results * DH OR Endoscopy (04/25/2023) Anatomical Region Laterality Modality Other 04/25/2023 Narrative 04/25/2023 12:00 AM EDT Photographs - Images Procedure Note Unknown - 04/25/2023 Photographs - Images Unknown EA IMAGES documented in this encounter Visit Diagnoses Not on filedocumented in this encounter Care Teams Foreclosure Clerk Relationship Specialty Start Date End Date Dea Kc, PROPERTY SUPER[place]OR [place] [address] PCP - General Family Medicine 04/12/23 documented as of this encounter
--- OUTSIDE RECORDS SUMMARY | 2024-07-04 03:00 | XMS_ITS | Encounter Summary ---
[facility] [place] [address] Care Team Providers Care Graduate Nurse Name Role Phone Dea Kc APRN Primary Care Provider [phone] Reason for Visit * Auth/Cert (Routine) Specialty Diagnoses / Procedures Referred By Contac t Referred To Contact Diagnoses Fibroids Pelvic pain Cervical pain Fibroids, pelvic pain, cervical pain Procedures PRO LAPAROSCOPY W TOT HYSTERECTUTERUS <=250 GRAM W TUBE/OVARY PRO CYSTOURETHROSCOPY LAPAROSCOPY, TOTAL HYST, UTERUS<250GMS, REM TUBE &/OR OVARY (WRVU 15) CYSTO, CYSTOURETHROSCOPY, DIAGNOSTIC (WRVU 1.53) Roma Chnio MD [facility] OBSTETRICS [place] [address] [facility] Referral ID Status Reason Start Date Expiration Date Visits Re quested Visits Authorized [id number] 1 1 Encounter Details Date Type Department Care Team (Latest Contact Info) Description 04/25/2023 8:08 AM EDT - 04/25/2023 4:57 PM EDT Hospital En[place] [phone] Roma Chino MD [facility] OBSTETRICS [place] [address] Fibroids; Chronic pelvic pain in female; Abnormal uterine bleeding Discharge Disposition: Home Social History Tobacco Use Types Packs/Day Years Used Date Smoking Tobacco: Former Cigarettes Smokeless Tobacco: Never Alcohol Use Standard Drinks/Week Comments Not Currently 0 (1 standard drink = 0.6 oz pur e alcohol) [facility] Inpatient Questions Answer Date Recorded Does Anyone [...] Sign Reading Time Taken Comments Blood Pressure 124/87 04/25/2023 4:10 PM EDT Pulse 84 04/25/2023 3:00 PM EDT Temperature 37.2 ??C (99 ??F) 04/25/2023 4:10 PM EDT Respiratory Rate 16 04/25/2023 4:10 PM EDT Oxygen Saturation 98% 04/25/2023 4:10 PM EDT Inhaled Oxygen Concentration - - Weight 52.5 kg (115 lb 12.8 oz) 04/25/2023 8:32 AM EDT Height 157.5 cm (5' 2) 04/25/2023 8:32 AM EDT Body Mass Index 21.18 04/25/2023 8:32 AM EDT documented in this encounter Discharge Instructions * Patient Instructions* Ashwin Escamilla MD - 04/24/2023 7:41 PM EDT Images from the original note were not included. PATIENT DISCHARGE INSTRUCTIONS [facility] BOX WORKER Department: Follow Up Appointment: Future Appointments Date Time Provider Department Center 04/26/2023 10:30 AM NURSE, GENERAL OBGYN [facility] OBG [address]L [facility] 05/21/2023 11:00 AM Kim Gonzalez MD [facility] GASTRO [facility] 05/31/2023 8:00 AM Roma Chino MD [facility] OBG [address]L [facility] Call your doctor if you develop: --A [...] 50 mg by mouth daily. 05/31/2017 rizatriptan (MAXALT-PULP MACHINE OPERATOR) 10 mg Tablet, Rapid Dissolve Take 10 [...] sling concurrent with today's procedure, as planned. Nicoel Moses MDf Female Pelvic Medicine and Reconstructive [...] Patient was seen and discussed with attending kitchen assistant, Jane. Dianne Moses MD PGY1 04/23/23 Associated [...] Operative Note Patient Name: Yumi Peraza : [id number] MR#: [id number] Case Date: 04/25/2023 Surgeon: Surgeon(s) and Role: [...] Operative Note Patient Name: Yumi Peraza : [id number] MR#: [id number] Case Date: 04/25/2023 Surgeon: Surgeon(s) and Role: [...] placed in the dorsal lithotomy position in [facility]. SCD's were on and active. She [...] as correct x 2. Dr. Chino, attending kitchen assistant, participated and was present for the entire procedure without conflicting responsibilities. Ashwin Escamilla MD PGY4 04/25/23 * Brief Op Note - Roma Chino MD - 04/25/2023 12:38 PM EDT Brief Operative Note Patient Name: Yumi Peraza : [id number] MR#: [id number] Case Date: 04/25/2023 Surgeon: Surgeon(s) and Role: [...] Moses MD - 04/25/2023 10:[address] [facility] Operative Note Patient Name: Yumi Peraza : [id number] MR#: [id number] Case Date: 04/25/2023 Surgeon: Surgeon(s) and Role: Panel 1: * Roma hCino MD - Primary * Ashwin Escamilla MD [...] turned to the midurethral sling. An #18 Bulgarian Mcfarland catheter was placed in the bladder [...] left, away from the side that the Ailcia retropubic trocar and Desara Blue sling were [...] sling. The sling was positioned using a [place] clamp to grasp a 3mm knuckle of [...] EST Office Visit Obstetrics [place] [address] Roma Chino MD [facility] DR OBSTETRICS [place] [address] 10/27/2024 11:00 AM EST TH Visit (TeleHealth) [place] [phone] Kim Gonzalez MD [facility] [place] [address] documented as of this encounter Procedures Procedure Name Priority Date/Time Associated Diagnosis Comments SURGICAL PATHOLOGY REPORT Routine 2022 12:02 PM EDT SPECIMEN TO PATHOLOGY Routine 04/25/2023 12:02 PM EDT Cystourethroscopy (84772) 2022 10:17 AM EDT Fibroids Chronic pelvic pain in female Abnormal uterine bleeding Sling Oper Stres Incontinence (36671) 04/25/2023 10:17 AM EDT Fibroids Chronic pelvic pain in female Abnormal uterine bleeding Cystourethroscopy (12866) 2022 10:17 AM EDT Fibroids Chronic pelvic pain in female Abnormal uterine bleeding Laparoscopy W Tot Hysterectuterus <=250 Gram W Tube/Ovary ([id number]) 04/25/2023 10:17 AM EDT Fibroids Chronic pelvic [...] Report (04/25/2023 12:02 PM EDT) Final Diagnosis [id number] ? Location: [facility]; [facility]; The signing pathologist has (i) examined [...] no significant pathologic abnormalities. Electronically signed by: ?Patrick MADDOX, Thang Verified: ??04/30/2023 9:18 ?? Pathologist Performed at: ??-[facility] Dept. of Pathology, [place] [address] Production: Jennifer Medina MD, FCAP, ??CLIA Certificate: [id number] SPECIMEN(S) SUBMITTED A - Uterus, cervix, bilateral [...] 2.0 x 0.5 cm, fimbriated. Sections/Processi ng: Die Presser sections in 22 cassettes as follows: ?A1: ??Die Presser squamocolumnar junction at 12 o'clock ?A2: ??Die Presser squamocolumnar junction at 6 o'clock ?A3: ??Die Presser endomyometrium from anterior wall ?A4: ??Die Presser endomyometrium from posterior wall ?A5: ??Die Presser submucosal nodule ?A6-A13: ??Die Presser intramural nodules ?A14-A16: ??Die Presser largest intramural nodule ?A17-A19: ??Right fallopian tube fimbriae and service representative cross sections ?A20-A22: ??Left fallopian tube fimbriae and service representative cross sections ??po 04/30/2023 9:[address] [facility] Uterine Corpus 04/25/2023 12 :02 PM EDT 04/25/2023 12:02 PM EDT Roma Chino MD PATHOLOGY/CYTOLOGY O ADENIKE [facility] [place] [address] [facility] [place] [address] * Specimen to Pathology (04/25/2023 12:02 PM EDT) AP Specimen 04/25/2023 12:0 2 PM EDT 04/25/2023 12:02 PM EDT Narrative [facility] - 04/25/2023 12:02 PM EDT Specimen requisition ordered. ??Separate Pathology report to follow Roma Chino MD PATHOLOGY/CYTOLOGY O RDSHIRA Performing Organization Address City/[facility]/ZIP Co de Phone Number [facility] [address] * POCT Glucose (04/25/2023 8:37 AM EDT) Glucose, POC 89 65 - 199 mg/dL [facility] Comment: Supplemental ranges: <140 mg/dL before meals <180 mg/dL all other times of the day Blood 04/25/2023 8:37 AM EDT 04/25/2023 8:37 AM EDT Roma Chino MD POINT OF CARE TEST O RDERALEWIS Performing Organization Address City/[facility]/ZIP Co de Phone Number [facility] [address] * SCAN DOC: IMPLANTABLE DEVICES (04/25/2023 12:00 [...] Given 04/25/2023 8:45 AM EDT 975 mg HYDROmorphone (Dilaudid) (2 mg/mL) multi-dose injection [...] Given 04/25/2023 1:07 PM EDT 30 mg oxyCODONE (Roxicodone) tablet 5-10 mg 5-10 mg, [...] on Sun04/25/23 at 1315, Last dose on Sun04/26/23 at 0600, Routine 1307 (Given - Provid er: Jennifer Corrigan MD)1315 (Due) metroNIDAZOLE (Flagyl) 500 mg in sodium chloride 0.9% 100 mL infusion (COMPLETED)(Linked Group 1) 500 mg, Intravenous, ONCE, 1 dose, On Sun04/25/23 at 0845, Administer over 30 Minutes, Medical Pathologist to OR Infuse over 30 minutes., Day [...] Sun04/25/23 at 0845, Administer over 30 Minutes, Medical Pathologist to OR Infuse over 30 minutes., Day of Surgery (Day of Procedure), Indication for (Active or Suspected): Prophylaxis And metroNIDAZOLE (Flagyl) 500 mg in sodium chloride 0.9% 100 mL infusion (COMPLETED)Jump to med 500 mg, Intravenous, ONCE, 1 dose, On Sun04/25/23 at 0845, Administer over 30 Minutes, Medical Pathologist to OR Infuse over 30 minutes., Day [...] Routine documented in this encounter Care Teams Graduate Nurse Relationship Specialty Start Date End Date Dea Kc [place] [address] PCP - General Family Medicine 04/12/23 documented as of this encounter
--- OUTSIDE RECORDS SUMMARY | 2024-07-04 03:00 | XMS_ITS | Encounter Summary ---
[place] [address] Care Team Providers Care Water Quality Analyst Name Role Phone Dea Kc APRN Primary Care Provider [phone] Reason for Visit * Reason Onset Date Comments Follow-up 07/13/2023 Encounter Details Date Type Department Care Team (Late st Contact Info) Description 07/13/2023 Telephone Obstetrics [place] [phone] Lilia Carvajal, RN Follow-up Social History Tobacco Use Types Packs/Day Years Used Date Smoking Tobacco: Former Cigarettes Smokeless Tobacco: Never Alcohol Use Standard Drinks/Week Comments Not Currently 0 (1 standard drink = 0.6 oz pur e alcohol) [facility] Inpatient Questions Answer Date Recorded Does Anyone [...] Miscellaneous Notes * Telephone Encounter - Lilia Carvajal, RN - 07/13/2023 9:41 AM EST TELEPHONE NOTE Caller: Pt Reason for call: Following up from [facility] message Assessment: Pt had combo case with and on 04/25/23 and had LAPAROSCOPY, TOTAL HYST, UTERUS<250GMS, REM TUBE &/OR OVARY (WRVU 15) (N/A) CYSTO, CYSTOURETHROSCOPY, DIAGNOSTIC (WRVU 1.53) (N/A) URETHRAL SUSPENSION, SLING\FASCIA OR SYNTHETIC . Pt states she had intercourse for the first time since surgery and was very painful. Pt felt a scratching and poking feeling during intercourse. With deep penetration pt states theyhad to stop because of pain at vaginal cuff. No bleeding. Feels it might be stitches but unsure. Pt was using estrogen cream but had to stop using the applicator because it was painful to insert and did start using pea size amount with finger. Pt also completely stopped because had developed stomach bug and was feeling better and then caught a cold and had never resumed till recently after having intercourse which she has used 2 nights in a row. No issues with bowel or urination. Plan/Instructions: Pt has appt scheduled with on 07/19/23 for assessment. Pt in agreement. documented in this encounter Plan of Treatment Upcoming Encounters Date Type Department Care Team (Late st Contact Info) Description 07/17/2024 1:00 PM EST Office Visit Obstetrics [place] [address] Roma Lara MD [facility] DR OBSTETRICS [place] [address] 10/27/2024 11:00 AM EST TH Visit (TeleHealth) [place] [address] Kim Gonzalez MD [facility] [place] [address] documented as of this encounter Visit Diagnoses Not on filedocumented in this encounter Care Teams Water Quality Analyst Relationship Specialty Start Date End Date Dea Kc, CRUSHER AND BINDER OPERATOR [facility] [address] PE[address] [facility] [place] [address] PCP - General Family Medicine 04/12/23 documented as of this encounter
--- OUTSIDE RECORDS SUMMARY | 2024-07-04 03:00 | XMS_ITS | Encounter Summary ---
Author Organization [facility] [place] [address] Care Team Providers Care Motion Picture Camera Operator Name Role Phone Dea Kc APRN Primary Care Provider [phone] Encounter Details Date Type Department Care Team (Late st Contact Info) Description 06/18/2023 Ancillary Procedure Radiology Library at [facility] [place] [phone] Dea Kc APRN [address] [place] [address] [place], [place] [id number] Social History Tobacco Use Types Packs/Day Years Used Date Smoking Tobacco: Former Cigarettes Smokeless Tobacco: Never Alcohol Use Standard Drinks/Week Comments Not Currently 0 (1 standard drink = 0.6 oz pur e alcohol) [facility] Inpatient Questions Answer Date Recorded Does Anyone [...] EST Office Visit Obstetrics and Gynecology at [facility] [place] [phone] Roma Lara MD [facility] [place]ST[place] [address] 10/27/2024 11:00 AM EST TH Visit (TeleHealth) [place] [address] Kim Gonzalez MD [facility] [place] [address] documented as of this encounter Procedures Procedure Name Priority Date/Time Associated Diagnosis Comments FILM LIBRARY STORAGE ONLY MAMMO Routine 06/18/2023 12:00 AM EDT documented in this encounter Results * Film Library- Storage Only Mammo (06/18/2023 12:00 AM EDT) Narrative [facility] - 07/11/2023 12:50 PM EST This exam is auto-finalizing. It's purpose is for storage only. Dea Kc APRN IMValery FILM LIBRARY ORD ERABLES [place], [place] documented in this encounter Visit Diagnoses Not on filedocumented in this encounter Care Teams Motion Picture Camera Operator Relationship Specialty Start Date End Date Dea Kc APRN [address] [place] [address] PCP - General Family Medicine 04/12/23 documented as of this encounter
--- OUTSIDE RECORDS SUMMARY | 2024-07-04 03:00 | XMS_ITS | Encounter Summary ---
Author Organization [facility] [place] [address] Care Team Providers Care Development Manager Name Role Phone Dea Kc APRN Primary Care Provider [phone] Reason for Visit * Auth/Cert (Routine) Specialty Diagnoses / Procedures Referred By Contac t Referred To Contact Diagnoses Fibroids Pelvic pain Cervical pain Fibroids, pelvic pain, cervical pain Procedures PRO LAPAROSCOPY W TOT HYSTERECTUTERUS <=250 GRAM W TUBE/OVARY PRO CYSTOURETHROSCOPY LAPAROSCOPY, TOTAL HYST, UTERUS<250GMS, REM TUBE &/OR OVARY (WRVU 15) CYSTO, CYSTOURETHROSCOPY, DIAGNOSTIC (WRVU 1.53) Roma Lara MD [facility] DR OBSTETRICS [place] [address] [facility] Referral ID Status Reason Start Date Expiration Date Visits Re quested Visits Authorized [id number] 1 1 Encounter Details Date Type Department Care Team (Late st Contact Info) Description 04/25/2023 10:19 AM EDT Anesthesia [place] [phone] Kim Rosas MD [facility] [place] [address] eJnnifer Corrigan MD [facility] [place] [address] Anesthesia Record Procedure Summary Procedure Name Responsible Anesthesiologist Anesthesia Start Time Anesthesia Stop Time LAPAROSCOPY, TOTAL HYST, UTERUS<250GMS, REM TUBE &/OR OVARY (WRVU 15) (Pelvis) Kim Rosas MD 04/25/23 1019 04/25/23 1400 Events Date Time Event Comment 04/25/2023 0923 1019 AN Verify 1019 Start 1019 An Start Data 1032 An Induction 1035 An Intubation 1047 Anesthesia Ready 1103 Procedure Start 1117 Quick Note Took o2 sat pro be off of ear d/t low perf readings, re-adjusted 1125 Break/Relief In I assumed ca re for Break Relief before which we: 1. Identified the patient 2. Identified the responsible provider(s) 3. Reviewed the pertinent medical history 4. Discussed the surgical plan and course 5. Reviewed intra-op anesthesia management and issues during anesthesia 6. Set expectations for the relief (and/or post-procedure) period 7. Allowed opportunity for questions and acknowledgement of understanding Kim Rosas MD 1343 Extubation/LMA Out 1344 an stop data 1354 Recovery or ICU Handoff Kelsey ent care was transferred to the destination unit staff after review of the patient's medical history, current anesthetic/surgical status and plan, according to the Provider Handoff Checklist. 1400 Stop Meds Name Total Midazolam 2 mg fentaNYL 50 mcg IV Lidocaine 75 mg Propofol 130 mg Rocuronium 80 mg PHENYLephrine 40 mcg Ondansetron 4 mg Dexamethasone 4 mg Ketamine 10 mg/mL 50 mg Propofol INF 330.75 mg HYDROmorphone 2 mg/mL 0.4 mg ceFAZolin (Ancef) 1 g vial a ttached to sodium chloride 0.9% 50 mL Mini-Bag Plus 2 g metroNIDAZOLE (Flagyl) 500 mg in sodium chloride 0.9% 100 mL infusion 500 mg Sugammadex 200 mg ketorolac (Toradol) (30 mg/mL) injection 15 mg 30 mg lactated ringers infusion 1,000 mL Lactated Ringers 400 mL * Agents Name O2 Air Sevoflurane (et) * Blood No blood administrations on file. Lines, Drains, and Airways Type Details Placement Removal Incision 04/25/23; 1059; anterior; abdomen; laparoscopic punctures (specify); trocar sites x 4 04/25/23 1059 by Elvia Cheung RN Incision 04/25/23; 1254; vagina 04/25/23 1254 by Elvia Cheung, ALEN (RETIRED) Peripheral IV Line - Single Lumen dorsal arch vein (top of hand), right; aelh-fmb-ozjdip catheter system; Anatomical Landmarks; 18 gauge; Jennifer Corrigan; 04/25/23; 165304/25/23 1156 by 04/25/23 1654 by Cheyenne Duvall, ALEN (RETIRED) Peripheral IV Line - Single Lumen 04/25/23; median cubital vein (antecubital fossa), left; 20 gauge; appears comfortable; 04/25/23; 165304/25/23 0000 by Gopi Cason RN 04/25/23 165 by Cheyenne Duvall RN ETT Mask Ventilation: Doug gil (1); ETT Type: Cuffed, Oral; ETT Size: 7 mm; Mac Blade: 3; Notes: Asleep, Pre-O2, Cricoid Pressure, Stylette; Attempts: 1; Laryngoscopy Grade: 1; ETT Placement Verified By: Auscultation, Capnometry, Visual; Secured at Teeth: 21 cm; Inserted by: Jennifer Corrigan; Removal Date: 04/25/23; Removal Time: 1343 04/25/23 1035 by Jennifer Corrigan MD 04/25/23 1343 by Jennfier Corrigan MD Urethral Catheter 04/25/23; 1054; Genitourinary surgery; indwelling double lumen catheter; latex; 18; inserted at this facility; 1; 5; 10; drainage bag; 04/25/23; 1600 04/25/23 1054 by Elvia Cheung RN 04/25/23 1600 by Gopi Cason, ALEN documented in this encounter Social History Tobacco [...] OR Notes * Anesthesia Postprocedure Evaluation - Jennifer Corrigan MD - 04/25/2023 2:03 PM EDT Department of Anesthesiology Post-procedure Note Patient: Yumi Peraza Procedure Summary Date: 04/25/23 Room / Location: [facility] OR [address] [place] [address] MAIN OR Anesthesia Start: 101 Anesthesia Stop: 1400 Procedures: LAPAROSCOPY, TOTAL HYST, UTERUS<250GMS, REM TUBE &/OR OVARY (WRVU 15) (Pelvis) CYSTO, CYSTOURETHROSCOPY, DIAGNOSTIC (WRVU 1.53) (Bladder) URETHRAL SUSPENSION, SLING\FASCIA OR SYNTHETIC (WRVU 12.13) (Pelvis) CYSTO, CYSTOURETHROSCOPY, DIAGNOSTIC (WRVU 1.53) (Bladder) Diagnosis: Fibroids Chronic pelvic pain in female Abnormal uterine bleeding (Fibroids, pelvic pain, cervical pain) (Stress urinary incontinence) Surgeons: Roma Lara MD; Nicole Moses MD Responsible Provider: Kim Rosas MD Anesthesia Type: general ASA Status: 2 All Anesthesia Providers: Anesthesiologist: Kim Rosas MD Water Softener Service Supervisor: Jennifer Corrigan MD Vitals Value Taken Time BP 131/114 04/25/23 1400 Temp Pulse 93 04/25/23 1402 Resp 19 04/25/23 1402 SpO2 95 % 04/25/23 1402 Pain Level Vitals shown include unvalidated device data. Patient Location: PACU/[facility] Level of Consciousness: Awake and Alert Pain Management: Satisfactory Analgesia PONV: None Cardiovascular Status: At Baseline and Hemodynamically Stable Respiratory Status: At Baseline, Stable Respiratory Status and Supplemental O2 (NC or FM) Postoperative Fluid Status: Intravascular EUvolemia Possible Anesthetic Complications: NONE apparent at time of evaluation Final Primary Anesthesia Type: General (The anesthetic type performed was the same as planned.) Comments: No patient complaints. No immediate anesthetic complications. Jennifer Corrigan MD * Anesthesia Preprocedure Evaluation - Kim Rosas MD - 04/24/2023 1:49 PM EDT Pre-Anesthesia Evaluation for: Yumi shields 53 y.o. female. Procedure(s): LAPAROSCOPY, TOTAL HYST, UTERUS<250GMS, REM TUBE &/OR OVARY (WRVU 15) CYSTO, CYSTOURETHROSCOPY, DIAGNOSTIC (WRVU 1.53) URETHRAL SUSPENSION, SLING\FASCIA OR SYNTHETIC (WRVU 12.13) Patient Active Problem List Diagnosis Date Noted ??? Irritable bowel syndrome with constipation 01/10/2022 ??? Adjustment disorder 12/12/2021 ??? Dyspepsia 12/19/2020 ??? Chronic constipation 12/19/2020 Past Medical History: Diagnosis Date ??? Abnormal uterine bleeding (AUB) ??? Anxiety ??? Dyspareunia due to medical condition in female ??? Fibroid uterus ??? H/O gastric ulcer ??? Migraine w & wo aura Past Surgical History: Procedure Laterality Date ??? APPENDECTOMY ??? SINUS SURGERY Social History Tobacco Use [...] Physical Exam: Preprocedure Vitals Current as of 04/24/23 1349 No BP, pulse, respiration, SpO2, or temperature recorded. Height: 159 cm (5' 2.6) (02/14/23) Weight: 53.5 kg (118 lb) (02/14/23) BMI: 21.17 IBW: 51.5 kg (113 lb 7.8 oz) Airway Assessment: Mallampati: I TM distance: >3 FB Neck ROM: full Cardiovascular Assessment: system normal Pulmonary Assessment: pulmonary exam normal Dental Assessment: Misc Assessment: IV access: Peripheral line Last Filed Perioperative Cognitive Screening None Anesthesia Plan: ASA 2 general, with a(n) intravenous induction Yumi Peraza is a 53 y/o F with uterine bleeding and chronic pelvic pain presenting for laparoscopic total hysterectomy, cysto, and urethral sling with Dr. Lara. PMHx: GERD Migraine Anxiety Meds: Acetylcysteine Hyoscyamine SL Mirabegron Protonix Plecanatide Prucalopride Rizatriptan Anesthesia Hx: Had MAC for colonoscopy in 2017. Mall 2. No other records. Labs: No recent labs Plan: GA with ETT, 2nd IV, OGT Attending addendum: Plan for GA w/ ETT. Ketamine bolus on induction for multi-modal analgesia to minimize narcotics. Region - Other Informed Consent: Anesthetic plan and risks discussed with patient and spouse. Use of blood products discussed with patient and spouse who consented to blood products. Plan discussed with resident and attending. Anesthesia Screening documented in this encounter Plan of Treatment Upcoming Encounters Date Type Department Care Team (Late st Contact Info) Description 07/17/2024 1:00 PM EST Office Visit Obstetrics [place] [address] Rmoa Lara MD [facility] DR OBSTETRICS [place] [address] 10/27/2024 11:00 AM EST TH Visit (TeleHealth) [place] [address] Kim Gonzalez MD [facility] [place] [address] documented as of this encounter Visit Diagnoses Not on filedocumented in this encounter Administered Medications Inactive Administered Medications - up to 3 most recent administrations Medication Order MAR Action Action Date Dose Rate Site ceFAZolin (Ancef) 1 g vial attached to sodium chloride 0.9% 50 mL Mini-Bag Plus Intravenous, CONTINUOUS PRN, Starting on Sun04/25/23 at 1050, Until Sun04/25/23 at 1401, Administer over 30 Minutes, Anesthesia Intra-op New Bag 04/25/2023 10:50 AM EDT 2 g dexAMETHasone (Decadron) injection Intravenous, PRN, Starting on Sun04/25/23 at 1037, Until Sun04/25/23 at 1401, Anesthesia Intra-op, Routine Given 04/25/2023 10:37 AM EDT 4 mg fentaNYL (pf) (50 mcg/mL) multi-dose injection Intravenous, PRN, Starting on Sun04/25/23 at 1101, Until Sun04/25/23 at 1401, Anesthesia Intra-op, Routine Given 04/25/2023 12:47 PM EDT 25 mcg Given 04/25/2023 11:01 AM EDT 25 mcg HYDROmorphone (Dilaudid) (2 mg/mL) multi-dose injection solution Intravenous, PRN, Starting on Sun04/25/23 at 1115, Until Sun04/25/23 at 1401, Anesthesia Intra-op, Routine Given 04/25/2023 12:07 PM EDT 0.2 mg Given 04/25/2023 11:15 AM EDT 0.2 mg ketamine (Ketalar) (10 mg/mL) IV bolus injection (Anesthesia) Intravenous, PRN, Starting on Sun04/25/23 at 1032, Until Sun04/25/23 at 1401, Anesthesia Intra-op Given 04/25/2023 10:32 AM EDT 50 mg ketorolac (Toradol) (30 mg/mL) injection 15 mg 15 mg, Intravenous, EVERY 8 HOURS SCHEDULED, 3 doses, First dose on Sun04/25/23 at 1315, Last dose on Sun04/26/23 at 0600, Routine Given 04/25/2023 1:07 PM EDT 30 mg lactated ringers infusion 1,000 mL, at 100 mL/hr, Intravenous, CONTINUOUS, Starting on Sun04/25/23 at 0845, Until Sun04/25/23 at 1656, Day of Surgery (Day of Procedure) New Bag 04/25/2023 10:20 AM EDT lactated ringers infusion Intravenous, CONTINUOUS PRN, Starting on Sun04/25/23 at 1046, Until Sun04/25/23 at 1401, Anesthesia Intra-op New Bag 04/25/2023 10:46 AM EDT lidocaine (pf) (Xylocaine) (20 mg/mL) 2% injection syringe Intravenous, PRN, Starting on Sun04/25/23 at 1037, Until Sun04/25/23 at 1401, Anesthesia Intra-op, Routine Given 04/25/2023 10:32 AM EDT 75 mg metroNIDAZOLE (Flagyl) 500 mg in sodium chloride 0.9% 100 mL infusion 500 mg, Intravenous, ONCE, 1 dose, On Sun04/25/23 at 0845, Administer over 30 Minutes, [place] to OR Infuse over 30 minutes., Day of Surgery (Day of Procedure), Indication for (Active or Suspected): Prophylaxis Given 04/25/2023 10:50 AM EDT 500 mg midazolam (pf) (Versed) (1 mg/mL) multi-dose injection Intravenous, PRN, Starting on Sun04/25/23 at 1020, Until Sun04/25/23 at 1401, Anesthesia Intra-op, Routine Given 04/25/2023 10:20 AM EDT 2 mg ondansetron (pf) (Zofran) (2 mg/mL) injection Intravenous, PRN, Starting on Sun04/25/23 at 1301, Until Sun04/25/23 at 1401, Anesthesia Intra-op, Routine Given 04/25/2023 1:01 PM EDT 4 mg PHENYLephrine in NS (PF) (EVONNE-SYNEPHRINE) 0.8 mg/10 mL (80 mcg/mL) multi-dose injection Syringe Intravenous, PRN, Starting on Sun04/25/23 at 1300, Until Sun04/25/23 at 1401, Anesthesia Intra-op, Routine Given 04/25/2023 1:00 PM EDT 40 mcg propofoL (Diprivan) (10 mg/mL) infusion Intravenous, CONTINUOUS PRN, Starting on Sun04/25/23 at 1045, Until Sun04/25/23 at 1401, Anesthesia Intra-op, Routine Rate/Dose Change 04/25/2023 1:15 PM EDT 75 mcg/kg/min 23.625 mL/hr New Bag 04/25/2023 10:45 AM EDT 30 mcg/kg/min 9.45 mL/h r propofoL (Diprivan) 10 mg/mL bolus injection (Anesthesia) Intravenous, PRN, Starting on Sun04/25/23 at 1032, Until Sun04/25/23 at 1401, Anesthesia Intra-op Given 04/25/2023 10:32 AM EDT 130 mg rocuronium (Zemuron) (10 mg/mL) multi-dose injection Intravenous, PRN, Starting on Sun04/25/23 at 1032, Until Sun04/25/23 at 1401, Anesthesia Intra-op, Routine Given 04/25/2023 12:47 PM EDT 10 mg Given 04/25/2023 12:20 PM EDT 10 mg Given 04/25/2023 11:53 AM EDT 10 mg sugammadex (Bridion) 100 mg/mL injection Intravenous, PRN, Starting on Sun04/25/23 at 1318, Until Sun04/25/23 at 1401, Anesthesia Intra-op, Routine Given 04/25/2023 1:18 PM EDT 200 mg documented in this encounter Care Teams Development Manager Relationship Specialty Start Date End Date Dea Kc, IMAGE CONSULTANT Maria [facility] [place] [address] PCP - General Family Medicine 04/12/23 documented as of this encounter
--- OUTSIDE RECORDS SUMMARY | 2024-07-04 03:00 | XMS_ITS | Encounter Summary ---
Author Organization [facility] [place] [address] Care Team Providers Care Consultant Name Role Phone John Rosario FLORENTINO Primary Care Provider [phone] Encounter Details Date Type Department Care Team (Latest Contact Info) Description 02/26/2023 8:40 AM EDT TH Visit (TeleHealth) Obstetrics [place] [phone] Roma Lara MD [facility] DR OBSTETRICS [place] [address] Fibroids; Chronic pelvic pain in female; Levator spasm; Abnormal uterine bleeding Social History Tobacco Use Types Packs/Day [...] Sign Reading Time Taken Comments Blood Pressure - - Pulse - - Temperature - - Respiratory Rate - - Oxygen Saturation - - Inhaled Oxygen Concentration - - Weight 53.5 kg (118 lb) 02/14/2023 5:06 PM EDT Height 159 cm (5' 2.6) 02/14/2023 5:06 PM EDT Body Mass Index 21.17 02/14/2023 5:06 PM EDT documented in this encounter Progress Notes * Dion Laughlin LNA - 02/26/2023 8:40 AM EDT ____ Patient not reached __x__Patient reached and the following information was reviewed/obtained per protocol. _x__Confirmed patient name and date of _x__Confirmed tele med appt (Virtual visit) is downloaded and functioning ___Confirmed location of patient- TeleVisit is taking place in [place]_x_ [place]__[place]__ [place]__ If not on myD, working on signing up for my DH Confirmed has completed any pre-visit questionnaires If has not received required previsit questionnaires, send via [facility] __x_Reviewed medications, allergies, pharmacy, pain/depression, education __x_Documented height/weight/LMP Other information or concerns: * Roma Lara MD - 02/26/2023 8:40 AM EDT Images from the original note were not included. DIGITAL ACCOUNT MANAGER Follow Up Visit- Telehealth I provided care to the patient today via telehealth TOV. The patient voiced an understanding of thereason and intent of the visit and consented to having their visit completed over telehealth. The patient was counseled about limitations of telehealth visits compared to in person visits for some diagnoses and indications. Patient physically in [place] at time of this visit. I spent 25 minutes on this visit including time with the patient and pre-/post-visit planning for the management of DIGITAL ACCOUNT MANAGER care. Reason for Visit: Yumi is a 53 y.o. benja menopausal female who presents for follow up of TVUS and pelvic pain and bloating. History of Present Illness: Most painful ultrasound and exam she has ever had So much cramping since her ultrasound Came off pill for 2 days and started bleeding so went right back on Intense cramping all day since her US, nothing seems to be helping works nights, they don't have any support in the area Parents aren't particularly healthy Gynecologic History: LMP: No LMP recorded. (Menstrual status: Contraceptive/Hormone ). Pregnancies: x1 DIGITAL ACCOUNT MANAGER diagnoses: None DIGITAL ACCOUNT MANAGER surgeries: None Sexually active with partner. Contraception (premenopause): COCs for many years. Last pap last year. Results: normal per patient History of abnormal paps: One 25 years ago, colposcopy Current Outpatient Medications Medication Sig Dispense Refill hyoscyamine SL (Levsin SL) 0.125 mg sublingual tablet Take 1 tablet by mouth every 4 hours as needed for Cramping. Max 6 pills per day. 30 tablet 3 polyethylene glycoL (Miralax) 17 gram/dose Powder DISSOLVE 17 GRAMS (LINE IN CAP) IN LIQUID AND DRINK BY MOUTH TWICE DAILY 238 g 1 pregabalin (Lyrica) 25 mg Capsule Take 1 capsule by mouth daily in the evening. After 1 week, increase to twice a day. 60 capsule 1 plecanatide (Trulance) 3 mg Tablet Take 1 tablet by mouth daily. 90 tablet 3 prucalopride (Motegrity) 2 mg Tablet Take 1 tablet by mouth daily. 30 tablet 5 mirabegron (Myrbetriq) 50 mg Tablet Sustained Release 24 hr Take 50 mg by mouth daily. rizatriptan (MAXALT-HUMAN SERVICE COORDINATOR) 10 mg Tablet, Rapid Dissolve Take 10 mg by mouth as needed. norethindrone-e.estradioL-iron (Jaida 24 Fe) 1 mg-20 mcg(24) /75 mg (4) Tablet, Chewable Take 1tablet by mouth daily. pantoprazole EC (Protonix) 40 mg Tablet, Delayed [...] Unlabored breathing Neuro: grossly intact Pelvic: Deferred Assessment/Plan: Yuim is a 53 y.o. perimenopausal female who presents for follow up of TVUSresults and pelvic pain. 1. Fibroids SURGICAL CASE REQUEST: LAPAROSCOPY, TOTAL HYST, UTERUS<250GMS, REM TUBE &/OR OVARY (WRVU 15), CYSTO, CYSTOURETHROSCOPY, DIAGNOSTIC (WRVU 1.53) 2. Chronic pelvic pain in female SURGICAL CASE REQUEST: LAPAROSCOPY, TOTAL HYST, UTERUS<250GMS, REM TUBE &/OR OVARY (WRVU 15), CYSTO, CYSTOURETHROSCOPY, DIAGNOSTIC (WRVU 1.53) 3. Levator spasm 4. Abnormal uterine bleeding SURGICAL CASE REQUEST: LAPAROSCOPY, TOTAL HYST, UTERUS<250GMS, REM TUBE &/OR OVARY (WRVU 15), CYSTO, CYSTOURETHROSCOPY, DIAGNOSTIC (WRVU 1.53) - Reviewed TVUS results and images - Given enlarging and multiple fibroids possible causing her bulk symptoms along with cervical pain, she would like to move forward with hysterectomy - Briefly reviewed plan for surgery and post op/recovery - Did discuss that I can't guarantee all of her pain will resolve with hysterectomy but bulk symptoms from fibroids and cervical pain will be managed, she may still benefit from PFPT, trigger point injections, etc - Will order case and have patient return for in person pre op appointment Note to patient: The Century Cures Act makes medical notes like this available to patients in the interest of transparency. However, be advised this is a medical document. It is intended as swyw-wd-yatx communication. It is written in medical language and may contain abbreviations or verbiage that are unfamiliar. Total time spent day of service on chart review, disease discussion and therapeutic counseling, as well as, documentation and coordination of care: 20 min Roma Lara MD 02/26/2023 9:03 AM documented in this encounter Plan of Treatment Upcoming Encounters Date Type Department Care Team (Late st Contact Info) Description 07/17/2024 1:00 PM EST Office Visit Obstetrics [place] [address] Roma Lara MD [facility] DR OBSTETRICS [place] [address] 10/27/2024 11:00 AM EST TH Visit (TeleHealth) [place] [address] Kim Gonzalez MD [facility] [place] [address] documented as of this encounter Visit Diagnoses Diagnosis Fibroids Leiomyoma of uterus, unspecified Chronic pelvic pain in female Unspecified symptom associated with female genital organs Levator spasm Abnormal involuntary movements Abnormal uterine bleeding Unspecified disorder of menstruation and other abnormal bleeding from female genital tract documented in this encounter Care Teams Consultant Relationship Specialty Start Date End Date John Rosario DNP [address] [place] [address] PCP - General Family Medicine 07/23/19 04/11/23 documented as of this encounter
--- OUTSIDE RECORDS SUMMARY | 2024-07-04 03:01 | XMS_ITS | Encounter Summary ---
Author Organization [facility] [place] [address] Care Team Providers Care Migratory Worker Name Role Phone John Rosario FLORENTINO Primary Care Provider [phone] Encounter Details Date Type Department Care Team (Late st Contact Info) Description 10/03/2021 Telephone [place] [phone] Nara Colon Social History Tobacco Use Types Packs/Day Years Used Date Smoking Tobacco: Never Assessed Sex and Gender Information Value Date Recorded Sex Assigned at Not on file Gender Identity Not on file Sexual Orientation Not on file documented as of this encounter Miscellaneous Notes * Telephone Encounter - Nara Colon - 10/03/2021 2:22 PM EST Left Message. Need to schedule a follow-up with Dr. Gonzalez in beginning of january documented in this encounter Plan of Treatment Upcoming Encounters Date Type Department Care Team (Late st Contact Info) Description 07/17/2024 1:00 PM EST Office Visit Obstetrics [place] [phone] Roma Lara MD [facility] OBSTETRICS [place] [address] 10/27/2024 11:00 AM EST TH Visit (TeleHealth) [place] [address] Kim Gonzalez MD [facility] [place] [address] documented as of this encounter Visit Diagnoses Not on filedocumented in this encounter Care Teams Migratory Worker Relationship Specialty Start Date End Date John Rosario DNP [address] [place] [id number] PCP - General Family Medicine 07/23/19 04/11/23 documented as of this encounter
--- OUTSIDE RECORDS SUMMARY | 2024-07-04 03:01 | XMS_ITS | Encounter Summary ---
Author Organization [facility] [place] [address] Care Team Providers Care Cotton Picker Name Role Phone Unavailable Primary Care Provider Unavailabl e Encounter Details Date Type Department Care Team (Late st Contact Info) Description 03/25/2013 Ancillary Procedure Radiology Library at [facility] [place] [address] Dea Kc, RD PROJECT MANAGER [address] [place], [place] [id number] Social History Tobacco Use Types Packs/Day Years [...] EST Office Visit Obstetrics [place] [phone] Roma Lara MD [facility] DR OBSTETRICS [place] [address] 10/27/2024 11:00 AM EST TH Visit (TeleHealth) [place] [phone] Kim Gonzalez MD [facility] [place] [address] documented as of this encounter Procedures Procedure Name Priority Date/Time Associated Diagnosis Comments FILM LIBRARY STORAGE ONLY MAMMO Routine 03/25/2013 12:00 AM EDT documented in this encounter Results * Film Library- Storage Only Mammo (03/25/2013 12:00 AM EDT) Narrative [facility] - 07/18/2023 12:53 PM EST This exam is auto-finalizing. It's purpose is for storage only. Dea Kc APRN IMValery FILM LIBRARY ORD ERABLES [place], [place] documented in this encounter Visit Diagnoses Not on filedocumented in this encounter
--- OUTSIDE RECORDS SUMMARY | 2024-07-04 03:01 | XMS_ITS | Encounter Summary ---
[place] [address] Care Team Providers Care Soap Chipper Name Role Phone John Rosario [facility] Primary Care Provider [phone] Reason for Referral * Physical Therapy (Routine) - Closed Specialty Diagnoses / Procedures Referred By Contac t Referred To Contact Physical Therapy Diagnoses Chronic constipation Kim Gonzalez MD [facility] [place] [address] Referral ID Status Reason Start Date Expiration Date V isits Requested Visits Authorized [id number] Closed Evaluate and Treat 04/11/2021 10/08/2021 12 12 * Consultation (Routine) - Closed Specialty Diagnoses / Procedures Referred By Contac t Referred To Contact Gastroenterology Diagnoses Abdominal bloating HBT - lactulose - SIBO Procedures BREATH HYDROGEN TEST PRF HBT - lactulose - SIBO Kim Gonzalez MD [facility] [address] [facility] [address] [place] [address] Referral ID Status Reason Start Date Expiration Date V isits Requested Visits Authorized [id number] Closed Consult, Test & Treat 04/11/2021 04/11/2022 1 1 Encounter Details Date Type Department Care Team (Latest Contact Info) Description 04/11/2021 10:00 AM EDT TH Visit (TeleHealth) [place] [address] Kim Gonzalez MD [facility] [place] [address] Irritable bowel syndrome, unspecified type; Abdominal bloating; Chronic constipation Social History Tobacco Use Types Packs/Day Years Used Date Smoking Tobacco: Never Assessed Sex and Gender Information Value Date Recorded Sex Assigned at Not on file Gender Identity Not on file Sexual Orientation Not on file documented as of this encounter Patient Instructions * Patient Instructions* Kim Gonzalez MD - 04/11/2021 10:00 AM EDT Recommendations ?? For difficulty with eating, try [employer] shakes ?? Stop Motegrity as this does not seem to be helping ?? Start Cymbalta 20mg/day to help reduce pain and discomfort - after one month we can increase this dose if you let me know ?? Continue [...] methane gas; if abnormal, will try a differentantibiotic than flagyl ?? Would recommend a consultation with pelvic floor PT at least one time prior to this with a home exercise program if applicable - referral to [facility] ---> will fax over the referral; I did look at their website and I did not see a pelvic floor therapist, so this may not be the most helpful place to go (unless their website just needs updating) ?? Anorectal manometry not scheduled until March 2022; See information below about dyssynergia that can contribute to distention and constipation and the benefits of diaphragmatic breathing ?? Rescue strategy: Glycerine or dulcolax suppository after breakfast or after dinner to help stimulate evacuation of stool and air/gas (in addition to dulcolax) See information abdomino-phrenic & pelvic floor dyssynergia that can contribute to abdominal distention (and constipation) ??? https://www.iffgd.org/commentary/qgvsjvutaoeok-bwgmskvccn-si-disorders.html Diaphragmatic breathing - start doing this several times per day ??? https://my.[facility].org/health/articles/5257-gxnutnxnokibc-pzgnjpkoh ??? https://www.[facility].org/conditions-treatments/mqguedubhlvpg-nuvaeuang-es-pepe ents Follow-up in: 2-3 months documented in this encounter Progress Notes * Kim Gonzalez MD - 04/11/2021 10:00 AM EDT [facility] Section of Gastroenterology and Hepatology Follow-up Telemedicine Visit PCP: John Rosario APRN Referring provider: John Rosario APRN [address] [place] [address] HPI 51 y.o. female following up for [...] have loose stools to move her bowels), Dulcolax(rescue, just 1), Milk of Magnesium 1x/wk, Linzess (gassy - multiple trials, a couple of weeks only2/2 to pain), Amitiza (nausea, bloated - multiple [...] back in December - does not remember if it helped. In a lot of pain over the past few months (January). Had to stop working. No QOL. Eating bland foods. Sick every day. Gas and bloating and distention. Constant gurgling. Feels like gas just sits there.On the left side. Gas-X sometimes reduces pain. Worsening pain over the past 4 days, constant. Also feels like food is not moving anywhere in her stomach. Feeling dinner from 5pm the night prior. Constant nausea. Still on Motegrity - no change [...] aBM that is liquid or complete mush. Has [...] constipated based on imaging. Started seeing a clinical writer then. Does not recallever having hard stools [...] (has not been evaluated or ruled out) orslow transit - MS may cause both. Given degree of pain is on IBS-C spectrum. Prior eval for IBD was negative. Stool continues to be loose on Miralax. Seemingly no benefit to motegrity. Relates much of her pain to gas. Discussed visceral hypersensitivity today and how this contributes to bloating even with potentially normal amounts of gas which is most common in IBS. I think she would benefit from a neuromodulator. Secretagogues have seemed to worsen symptoms. We also discussed re-evaluating for SIBO (below). - Likely abdominal distention [...] - after one month we can increase this dose if you let me know ?? Continue [...] methane gas; if abnormal, will try a differentantibiotic than flagyl ?? Would recommend a consultation with pelvic floor PT at least one time prior to this with a home exercise program if applicable - referral to [facility] ---> will fax over the referral; I did look at their website and I did not see a pelvic floor therapist, so this may not be the most helpful place to go (unless their website just needs updating) ?? Anorectal manometry not scheduled until March 2022; See information below about dyssynergia that can [...] (Tigan?); consider buspar, mirtazipine or trulance, would avoidTCA at this time, did not tolerate gabapentin and amitriptyline 2/2 to fatigue See information abdomino-phrenic & pelvic floor dyssynergia that can contribute to abdominal distention (and constipation) ??? https://www.iffgd.org/commentary/gbjyhbdftodfe-jxzrjqvylm-da-disorders.html Diaphragmatic breathing - start doing this several times per day ??? https://my.[facility].org/health/articles/3452-oopqqneaxtmef-dmxrrlfjb ??? https://www.[facility].org/conditions-treatments/bnddurolkvszq-sclwkbnqv-mf-pepe ents Follow-up in: 2-3 months TIME SPENT WITH PATIENT Time spent during encounter with patient including counselin minutes Time spent documenting encounter after office visit: 10 minutes Total time: 40 minutes The risks, benefits and alternatives were discussed with the patient who understands and agrees with above. The patient was located in [place] at the time of their telemedicine visit. Kim Gonzalez MD 04/10/21 Kim Gonzalez MD Button Sawyerwool classer Section of Gastroenterology and Hepatology [facility] Juan [email or web address] ([email or web address]) documented in this encounter Plan of Treatment Upcoming Encounters Date Type Department Care Team (Late st Contact Info) Description 07/17/2024 1:00 PM EST Office Visit Obstetrics [place] [phone] [place] Lara MD [facility] [address] [place] [address] 10/27/2024 11:00 AM EST TH Visit (TeleHealth) [place] [phone] Kim Gonzalez MD [facility] [place] [address] Scheduled Referrals Name Type Priority Associated Diagnoses Order Schedule Referral to Gastroenterology Outpatient Referral Routine Abdominal bloating Ordered: 04/11/2021 Referral to Physical Therapy Outpatient Referral Routine Chronic constipation Ordered: 04/11/2021 documented as of this encounter Visit Diagnoses Diagnosis Irritable bowel syndrome, unspecified type Abdominal bloating Flatulence, eructation, and gas pain Chronic constipation Unspecified constipation documented in this encounter Care Teams Soap Chipper Relationship Specialty Start Date End Date John Rosario DNP [address] [place] [address] PCP - General Family Medicine 07/23/19 04/11/23 documented as of this encounter
--- OUTSIDE RECORDS SUMMARY | 2024-07-04 03:01 | XMS_ITS | Encounter Summary ---
Author Organization [facility] [place] [address] Care Team Providers Care Security Control Room Officer Name Role Phone Unavailable Primary Care Provider Unavailabl e Encounter Details Date Type Department Care Team (Late st Contact Info) Description 03/04/2015 Ancillary Procedure Radiology Library at [facility] [place] [address] Dea Kc, SUPERVISOR DIAGNOSTIC [address] [place], [place] [id number] Social History Tobacco Use Types Packs/Day Years [...] EST Office Visit Obstetrics [place] [phone] Roma Lara MD [facility] [address] OBSTETRICS [place] [address] 10/27/2024 11:00 AM EST TH Visit (TeleHealth) [place] [phone] Kim Gonzalez MD [facility] [place] [address] documented as of this encounter Procedures Procedure Name Priority Date/Time Associated Diagnosis Comments FILM LIBRARY STORAGE ONLY MAMMO Routine 03/04/2015 12:00 AM EDT documented in this encounter Results * Film Library- Storage Only Mammo (03/04/2015 12:00 AM EDT) Narrative [facility] - 07/18/2023 12:53 PM EST This exam is auto-finalizing. It's purpose is for storage only. Dea Kc APRN IMValery FILM LIBRARY ORD ERABLES [place], [place] documented in this encounter Visit Diagnoses Not on filedocumented in this encounter
--- OUTSIDE RECORDS SUMMARY | 2024-07-04 03:01 | XMS_ITS | Encounter Summary ---
Author Organization [facility] [place] [address] Care Team Providers Care Market Research Senior Project Manager Name Role Phone John Rosario [facility]OR[facility] Primary Care Provider [phone] Encounter Details Date Type Department Care Team (Late st Contact Info) Description 01/12/2022 Telephone [place] [phone] Nara Colon Social History Tobacco Use Types Packs/Day Years Used Date Smoking Tobacco: Never Assessed Sex and Gender Information Value Date Recorded Sex Assigned at Not on file Gender Identity Not on file Sexual Orientation Not on file documented as of this encounter Miscellaneous Notes * Telephone Encounter - Nara Colon - 01/12/2022 1:05 PM EDT Left Message. Need to schedule follow-up appointment with dr. Gonzalez in May documented in this encounter Plan of Treatment Upcoming Encounters Date Type Department Care Team (Late st Contact Info) Description 07/17/2024 1:00 PM EST Office Visit Obstetrics [place] [phone] Roma Lara MD [facility] OBSTETRICS [place] [address] 10/27/2024 11:00 AM EST TH Visit (TeleHealth) [place] [address] [facility] [place] [address] documented as of this encounter Visit Diagnoses Not on filedocumented in this encounter Care Teams Market Research Senior Project Manager Relationship Specialty Start Date End Date John Rosario DNP [address] [place] [address] PCP - General Family Medicine 07/23/19 04/11/23 documented as of this encounter
--- OUTSIDE RECORDS SUMMARY | 2024-07-04 03:01 | XMS_ITS | Encounter Summary ---
Author Organization [facility] [place] [address] Care Team Providers Care Rubber Gasket Inspector Trimmer Name Role Phone John Rosario DNP Primary Care Provider [phone] Encounter Details Date Type Department Care Team (Late st Contact Info) Description 06/04/2020 Ancillary Procedure Radiology Library at [facility] [place] [phone] John Rosario DNP [address] [place], [place] [address] Social History Tobacco Use Types Packs/Day Years [...] EST Office Visit Obstetrics [place] [phone] Roma Lara MD [facility] OBSTETRICS [place] [address] 10/27/2024 11:00 AM EST TH Visit (TeleHealth) [place] [phone] Kim Gonzalez MD [facility] DR GASTROENTEROLOGY [place], [place] [id number] documented as of this encounter Procedures Procedure Name Priority Date/Time Associated Diagnosis Comments FILM LIBRARY STORAGE ONLY ULTRASOUND STUDY Routine 06/04/2020 12:00 AM EDT documented in this encounter Results * Film Library- Storage Only Ultrasound Study (06/04/2020 12:00 AM EDT) Narrative [facility] - 02/07/2022 10:10 AM EDT This exam is auto-finalizing. It's purpose is for storage only. John Rosario DNP IM FILM LIBRARY OR DERABLES Performing Organization Address City/State/[facility] Co de Phone Number [place], [place] documented in this encounter Visit Diagnoses Not on filedocumented in this encounter Care Teams Rubber Gasket Inspector Trimmer Relationship Specialty Start Date End Date John Rosario DNP [address] [place] [address] PCP - General Family Medicine 07/23/19 04/11/23 documented as of this encounter
--- OUTSIDE RECORDS SUMMARY | 2024-07-04 03:01 | XMS_ITS | Encounter Summary ---
Author Organization [facility] [place] [address] Care Team Providers Care Printed Circuit Board Designer Name Role Phone John Rosario DNP Primary Care Provider [phone] Encounter Details Date Type Department Care Team (Latest Contact Info) Description 12/12/2021 11:00 AM EDT TH Visit (TeleHealth) [place] [address] Sam Andrews, PhD [facility] [place] [address] Adjustment disorder, unspecified type Social History Tobacco Use Types Packs/Day Years Used Date Smoking Tobacco: Never Assessed Sex and Gender Information Value Date Recorded Sex Assigned at Not on file Gender Identity Not on file Sexual Orientation Not on file documented as of this encounter Progress Notes * Sam Andrews, PhD - 12/12/2021 11:00 AM EDT [facility] Department of Medicine, Section of Gastroenterology & Hepatology Behavioral Health: Cognitive Behavioral Therapy for Pain Group Time Spent: 55 minutes Visit date: 12/12/21 Session: 1 Number of participants: 7 Leader: Sam Andrews, Ph.D. This group was conducted via via telehealth. Patient is located in [place] and at home.. SUBJECTIVE: Chief Complaint: Adjustment [...] SEVERITY of your insomnia problem(s). Problem waking up too early: Moderate On a scale from 0 [...] is in terms of impairing the quality ofyour life? Much How WORRIED/distressed are you about your current sleep problem? Somewhat Graded Chronic Pain Scale Q - BMED GI BATTERY GRADED CHRONIC PAIN SCALE 12/11/2021 In the last 3 months, ON AVERAGE, how would you rate your chronic pain? Use a scale from 0-10, where 0 is no pain and 10 is pain as bad as it could be 7 In the last 3 months, how many days did your chronic pain keep you from doing your USUAL ACTIVITIESlike work, school or housework? 76-90 In the [...] bothered by worrying too much about different things? Nearly every day Over the LAST 2 WEEKS, how often have you been bothered by trouble relaxing? Nearly every day Over the LAST 2 WEEKS, how often have you been bothered by being so restless that it is hard to sitstill? Several days Over the LAST 2 WEEKS, [...] by feeling tired or having no energy? Nearly every day Over the LAST 2 [...] by moving or speaking so slowly that peoplehave noticed? Or the opposite- being so fidgety [...] IBS) VSI Score 25 (Within normal range) * Yumi Leong, PhD - 12/12/2021 11:00 AM EDT I have reviewed this note and I agree with the assessment, plan, and treatment as documented by Sam Andrews, Ph.D., who is a postdoctoral fellow at [facility] providing services under my supervision through the Department of Psychiatry. Yumi Leong, Ph.D. documented in this encounter Plan of Treatment Upcoming Encounters Date Type Department Care Team (Late st Contact Info) Description 07/17/2024 1:00 PM EST Office Visit Obstetrics [place] [phone] Roma Lara MD [facility] OBSTETRICS [place] [address] 10/27/2024 11:00 AM EST TH Visit (TeleHealth) [place] [address] Kim Gonzalez MD [facility] [address] documented as of this encounter Visit Diagnoses Diagnosis Adjustment disorder, unspecified type documented in this encounter Care Teams Printed Circuit Board Designer Relationship Specialty Start Date End Date John Rosario DNP [address] [place] [address] PCP - General Family Medicine 07/23/19 04/11/23 documented as of this encounter
--- OUTSIDE RECORDS SUMMARY | 2024-07-04 03:01 | XMS_ITS | Encounter Summary ---
Author Organization [facility] [place] [address] Care Team Providers Care Animal Trainer Supervisor Name Role Phone John Rosario DNP Primary Care Provider [phone] Encounter Details Date Type Department Care Team (Late st Contact Info) Description 09/12/2021 Telephone [place] [address] Dinh Ochoa Social History Tobacco Use Types Packs/Day Years Used Date Smoking Tobacco: Never Assessed Sex and Gender Information Value Date Recorded Sex Assigned at Not on file Gender Identity Not on file Sexual Orientation Not on file documented as of this encounter Miscellaneous Notes * Telephone Encounter - Dinh Ochoa - 09/12/2021 2:41 PM EST Inbound/Outbound: Inbound Spoke to Patient/Left Message: spoke to patient Notes: Inbound call from patient regarding ARM testing. Patient states testing is no longer needed and does not with to reschedule. Closing referral. * Telephone Encounter - Dinh Ochoa - 09/12/2021 12:34 PM EST Inbound/Outbound: Outbound Spoke to Patient/Left Message: Left message Notes: Outbound call to patient to reschedule upcoming motility test on 03/10/22 due to lab schedule change.Left message asking for patient to call back to reschedule. Return calls can be handled by: Motility Lab Survival Specialist documented in this encounter Plan of Treatment Upcoming Encounters Date Type Department Care Team (Late st Contact Info) Description 07/17/2024 1:00 PM EST Office Visit Obstetrics [place] [phone] Roma Lara MD [facility] DR OBSTETRICS [place] [address] 10/27/2024 11:00 AM EST TH Visit (TeleHealth) [place] [phone] Kim Gonzalez MD [facility] [place] [address] documented as of this encounter Visit Diagnoses Not on filedocumented in this encounter Care Teams Animal Trainer Supervisor Relationship Specialty Start Date End Date John Rosario DNP [address] [place] [address] PCP - General Family Medicine 07/23/19 04/11/23 documented as of this encounter
--- OUTSIDE RECORDS SUMMARY | 2024-07-04 03:01 | XMS_ITS | Encounter Summary ---
Author Organization [facility] [place] [address] Care Team Providers Care Cuffing Machine Operator Name Role Phone John oRsario DNP Primary Care Provider [phone] Encounter Details Date Type Department Care Team (Latest Contact Info) Description 07/18/2021 10:00 AM EST TH Visit (TeleHealth) [place] [address] Kim Gonzalez MD [facility] [place] [address] Irritable bowel syndrome with constipation; Dyspepsia Social History Tobacco Use Types Packs/Day Years Used Date Smoking Tobacco: Never Assessed Sex and Gender Information Value Date Recorded Sex Assigned at Not on file Gender Identity Not on file Sexual Orientation Not on file documented as of this encounter Patient Instructions * Patient Instructions* Kim Gonzalez MD - 07/18/2021 10:00 AM [...] (from Brittny) which is a medication that can help the stomach empty. We could first try [...] who is an expert in sleep and painspecifically as it pertains to GI problems. She works short-term with individuals who have GI problems. She does cognitive behavioral therapy and hypnosis depending on the person. She does not prescribe medications. Given the way the brain is connected to the gut, this could be a very helpful approach for you in combination with what we are doing and I realized we have not discussed it. Her wait list is long (over 6 months) but I could certainly refer you - just let me know. See this link: [email or web address] :[email or web address] [email or web address] ?? Anorectal manometry as scheduled in March 2022 See information abdomino-phrenic & pelvic floor dyssynergia that can contribute to abdominal distention (and constipation) ??? https://www.iffgd.org/commentary/lcoqgbhspiboi-hantstgeev-wf-disorders.html Diaphragmatic breathing - start doing this several times per day ??? https://my.[facility].org/health/articles/8453-aguuropxkqumw-uzinmowyj ??? https://www.[facility].org/conditions-treatments/gsedysykwpxxv-vixqsbaut-cq-pepe ents Follow-up in: September, will add to 11:30am slot on Sunday documented in this encounter Progress Notes * Kim Gonzalez MD - 07/18/2021 10:00 AM EST [facility] Section of Gastroenterology and Hepatology [...] had to take an extra dose - full dose will cause her to be up all night long with small frequent BMs and cramps The last 2.5 weeks went back on motegrity - helped her to have at least 1 BM/day in the morning usually - feels better enough to get through the day or sometimes just has a 10 second relief, feels full of gas Took a dulcolax yesterday morning and [...] an exam yet but working towards this Lauriealta - tried it for 1.5 weeks, headaches, [...] constipated based on imaging. Started seeing a liability claims representative then. Does not recallever having hard stools [...] gastroparesis; symptoms sound more FD-like. Nausea is significant,had vomiting when significantly constipated. Constipation defined by [...] pain is on IBS-C spectrum, significant visceral hype rsensitivity. Prior eval for IBD was negative. Relates pain to gas - SIBO testing negative - I think she has a normal amount of gas but pain [...] she clearly expresses that she can only tolerate short trials of medications if they cause her to feel any worse - this is understandable but challenging. I am hopeful that once she is able to work more completely with her PT this will provide some answers. Recommendations ?? Continue motegrity with Miralax [...] (from Brittny) which is a medication that can help the stomach empty. We could first try a short course of a medication called Reglan which can speed up the stomach. Reglan has the risk of tardive dyskinesia (abnormal movements) that can in some cases be permanent. This is typically seen with high doses over longer periods of time. A short tri al is generally safer and we could do this. If Reglan helps, then domperidone would be more likely to help and would be worth pursuing from Brittny. ?? We have a GI-focused behavioral psychologist in our GI clinic who is an expert in sleep and painspecifically as it pertains to GI problems. She works short-term with individuals who have GI problems. She does cognitive behavioral therapy and hypnosis depending on the person. She does not prescribe medications. Given the way the brain is connected to the gut, this could be a very helpful approach for you in combination with what we are doing and I realized we have not discussed it. Her wait list is long (over 6 months) but I could certainly refer you - just let me know. See this link: [email or web address] ://[email or web address] sebastian. Also: https://a boutibs.org/treatment/psychological-treatments/miwwnzmpd-wmjfndveat-zbnunft/ ?? Other: Tergaserod, re-trial of Linzess ?? [...] contribute to abdominal distention (and constipation) ??? https://www.iffgd.org/commentary/updfrvdmyzmyg-otdjbngiux-yh-disorders.html Diaphragmatic breathing - start doing this several times per day ??? https://my.[facility].org/health/articles/1813-ewzbdpkisotgp-kkjjxuyob ??? https://www.[facility].org/conditions-treatments/gncylprvevagy-ehratmgwh-bc-pepe ents Follow-up in: September, will add to 11:30am slot on Sunday The risks, benefits and alternatives were discussed with the patient who understands and agrees with above. The patient was located in [place] at the time of their telemedicine visit. Kim Gonzalez MD 07/18/21 Kim Gonzalez MD Manufacturing Test Technicianotc clerk Section of Gastroenterology and Hepatology [facility] [email or web address] (p) documented in this encounter Plan of Treatment Upcoming Encounters Date Type Department Care Team (Late st Contact Info) Description 07/17/2024 1:00 PM EST Office Visit Obstetrics [place] [phone] Roma Lara MD [facility] OBSTETRICS [place] [address] 10/27/2024 11:00 AM EST TH Visit (TeleHealth) [place] [address] Kim Gonzalez MD [facility] [place] [address] documented as of this encounter Visit Diagnoses Diagnosis Irritable bowel syndrome with constipation Irritable bowel syndrome Dyspepsia Dyspepsia and other specified disorders of function of stomach documented in this encounter Care Teams Cuffing Machine Operator Relationship Specialty Start Date End Date John Rosario DNP [address] [place] [address] PCP - General Family Medicine 07/23/19 04/11/23 documented as of this encounter
--- OUTSIDE RECORDS SUMMARY | 2024-07-04 03:01 | XMS_ITS | Encounter Summary ---
[place] [address] Care Team Providers Care Radiator Repairer Name Role Phone MarleneJohn canseco Johnvictor manuel FLORENTINO Primary Care Provider [phone] Reason for Visit * Reason Onset Date Comments Prior Authorization 07/26/2021 Encounter Details Date Type Department Care Team (Late st Contact Info) Description 07/26/2021 Telephone [place] [address] Macarena Fenton CCMA Prior Authorization Social History Tobacco Use Types Packs/Day Years Used Date Smoking Tobacco: Never Assessed Sex and Gender Information Value Date Recorded Sex Assigned at Not on file Gender Identity Not on file Sexual Orientation Not on file documented as of this encounter Miscellaneous Notes * Telephone Encounter - Macarena Fenton LNA - 07/26/2021 9:01 AM EST Medication Prior Authorization 4L Gastroenterology / [place] [address] ?? Subscriber Insurance: [place] Medicaid ?? Phone: Fax: ? Physician: Kim Gonzalez ? Return ?? Pharmacy: [facility] ?? Fax: ?? Medication Requested: Trulance ?? Strength: 3mg Frequency: Daily ?? Disp.: 30 Refills: 3 ?? Currently taking: ?? Diagnosis for this medication: IBS-C ?? ICD-10 code: K58.1 ?? Prior medications trialed in this patient: Miralax, Milk of Magnesium, Linzess, Amitiza, PeppermintOil, Motegrity, Gas-X, Dicyclomine, Suppositories ? Medication: Outcome/Adverse Reactions: ??Treatment Failure Decision: Approved ?? Tracking number/Case number/Reference number: [id number] ?? Effective date: 07/26/2021 to 10/26/2021 ?? Start: End: documented in this encounter Plan of Treatment Upcoming Encounters Date Type Department Care Team (Late st Contact Info) Description 07/17/2024 1:00 PM EST Office Visit Obstetrics [place] [address] Roma Lara MD [facility] DR OBSTETRICS [place] [address] 10/27/2024 11:00 AM EST TH Visit (TeleHealth) Gastroenterology at [place] [phone] Kim Gonzalez MD [facility] [place] [address] documented as of this encounter Visit Diagnoses Not on filedocumented in this encounter Care Teams Radiator Repairer Relationship Specialty Start Date End Date John Rosario DNP [address] [place] [address] PCP - General Family Medicine 07/23/19 04/11/23 documented as of this encounter
--- OUTSIDE RECORDS SUMMARY | 2024-07-04 03:01 | XMS_ITS | Encounter Summary ---
Author Organization [facility] Address [facility] [address] [place] [id number] Care Team Providers Care Screen Operator Name Role Phone John Rosario [facility] Primary Care Provider [phone] Reason for Referral * Consultation (Routine) - Closed Specialty Diagnoses / Procedures Referred By Contac t Referred To Contact Obstetrics and Gynecology Diagnoses Urinary incontinence, unspecified type Kim Gonzalez MD [facility] [place] [address] Nicole Moses MD [facility] [place] [address] Referral ID Status Reason Start Date Expiration Date V isits Requested Visits Authorized [id number] Closed Consult, Test & Treat 01/18/2022 01/18/2023 1 1 Encounter Details Date Type Department Care Team (Late st Contact Info) Description 01/18/2022 Orders [place] [address] Kim Gonzalez MD [facility] [place] [address] Urinary incontinence, unspecified type Social History Tobacco Use Types [...] EST Office Visit Obstetrics [place] [address] Roma Lara MD [facility] DR OBSTETRICS [place] [address] 10/27/2024 11:00 AM EST TH Visit (TeleHealth) [place] [address] Kim Gonzalez MD [facility] [place] [address] Scheduled Referrals Name Type Priority Associated Diagnoses Order Schedule Referral to Urogynecology Outpatient Referral Routine Urinary incontinence, unspecified type Ordered: 01/18/2022 documented as of this encounter Visit Diagnoses Diagnosis Urinary incontinence, unspecified type documented in this encounter Care Teams Screen Operator Relationship Specialty Start Date End Date John Rosario DNP [address] [place] [address] PCP - General Family Medicine 07/23/19 04/11/23 documented as of this encounter
--- OUTSIDE RECORDS SUMMARY | 2024-07-04 03:01 | XMS_ITS | Encounter Summary ---
[facility] [place] [address] Care Team Providers Care Home Management Supervisor Name Role Phone John Rosario FLORENTINO Primary Care Provider [phone] Reason for Visit * Reason Onset Date Comments Medication Refill 08/01/2022 Encounter Details Date Type Department Care Team (Late st Contact Info) Description 08/01/2022 Ref[place] [phone] Kim Gonzalez MD [facility] [place] [address] Irritable bowel syndrome with constipation Social History [...] EST Office Visit Obstetrics [place] [address] Roma Lara MD [facility] DR OBST[place] [address] 10/27/2024 11:00 AM EST TH Visit (TeleHealth) [place] [address] Kim Gonzalez MD [facility] [place] [address] documented as of this encounter Visit Diagnoses Diagnosis Irritable bowel syndrome with constipation Irritable bowel syndrome documented in this encounter Care Teams Home Management Supervisor Relationship Specialty Start Date End Date John Rosario DNP [address] [place] [address] PCP - General Family Medicine 07/23/19 04/11/23 documented as of this encounter
--- OUTSIDE RECORDS SUMMARY | 2024-07-04 03:01 | XMS_ITS | Encounter Summary ---
[place] [address] Care Team Providers Care Time Clock Mechanic Name Role Phone John Rosario Johnvictor manuel FLORENTINO Primary Care Provider [phone] Reason for Visit * Reason Onset Date Comments Prior Authorization 07/21/2021 Encounter Details Date Type Department Care Team (Late st Contact Info) Description 07/21/2021 Telephone [place] [address] Macarena Fenton CCMA Prior Authorization Social History [...] Prior Authorization 4L Gastroenterology / [place] [address] Subscriber Insurance: [place] Medicaid Phone: Fax: Physician: Kim Gonzalez Return Pharmacy: [facility] Fax: Medication Requested: Hyoscyamine Strength: 0.125mg Frequency: Every 4 hours as needed Disp.: 30 Refills: 3 Currently taking: Diagnosis for this medication: IBS-C ICD-10 code: K58.1 Prior medications trialed in this patient: Medication: Outcome/Adverse Reactions: Decision: Not Required Tracking number/Case number/Reference number: [id number] Effective date: 07/21/2021 to 07/21/2022 Start: End: documented in this encounter Plan of Treatment Upcoming Encounters Date Type Department Care Team (Late st Contact Info) Description 07/17/2024 1:00 PM EST Office Visit Obstetrics [place] [address] Roma Lara MD [facility] DR OBSTETRICS [place] [address] 10/27/2024 11:00 AM EST TH Visit (TeleHealth) [place] [address] Kim Gonzalez MD [facility] [place] [address] documented as of this encounter Visit Diagnoses Not on filedocumented in this encounter Care Teams Time Clock Mechanic Relationship Specialty Start Date End Date John Rosario DNP [address] [place] [address] PCP - General Family Medicine 07/23/19 04/11/23 documented as of this encounter
--- OUTSIDE RECORDS SUMMARY | 2024-07-04 03:01 | XMS_ITS | Encounter Summary ---
Author Organization [facility] [address] Care Team Providers Care Diversity Intern Name Role Phone John Rosario DNP Primary Care Provider [phone] Encounter Details Date Type Department Care Team (Latest Contact Info) Description 06/30/2022 Travel Social History Tobacco Use [...] EST Office Visit Obstetrics [place] [address] Roma Lara MD [facility] DR OBSTETRICS [place] [address] 10/27/2024 11:00 AM EST TH Visit (TeleHealth) [place] [address] Kim Gonzalez MD [facility] [place] [address] documented as of this encounter Visit Diagnoses Not on filedocumented in this encounter Care Teams Diversity Intern Relationship Specialty Start Date End Date John Rosario DNP [address] [place] [address] PCP - General Family Medicine 07/23/19 04/11/23 documented as of this encounter
--- OUTSIDE RECORDS SUMMARY | 2024-07-04 03:01 | XMS_ITS | Encounter Summary ---
[place] [address] Care Team Providers Care Continuous Improvement Consultant Name Role Phone John Rosario FLORENTINO Primary Care Provider [phone] Reason for Visit * Reason Onset Date Comments Reminder Appointment 04/11/2021 Encounter Details Date Type Department Care Team (Late st Contact Info) Description 04/11/2021 Telephone [place] [address] Carmen Bennett CMA GASTROENTEROLOGY DEPT Reminder Appointment Social History Tobacco Use Types Packs/Day Years Used Date Smoking Tobacco: Never Assessed Sex and Gender Information Value Date Recorded Sex Assigned at Not on file Gender Identity Not on file Sexual Orientation Not on file documented as of this encounter Miscellaneous Notes * Telephone Encounter - Carmen Bennett CMA - 04/11/2021 8:45 AM EDT [...] EST Office Visit Obstetrics [place] [address] Roma Lara MD [facility] DR OBSTETRICS [place] [address] 10/27/2024 11:00 AM EST TH Visit (TeleHealth) [place] [address] Kim Gonzalez MD [facility] [place] [address] documented as of this encounter Visit Diagnoses Not on filedocumented in this encounter Care Teams Continuous Improvement Consultant Relationship Specialty Start Date End Date John Rosario DNP [address] [place] [address] PCP - General Family Medicine 07/23/19 04/11/23 documented as of this encounter
--- OUTSIDE RECORDS SUMMARY | 2024-07-04 03:01 | XMS_ITS | Encounter Summary ---
Author Organization [facility] [place] [address] Care Team Providers Care Potato Peeler Name Role Phone John Rosario DNP Primary Care Provider [phone] Encounter Details Date Type Department Care Team (Latest Contact Info) Description 05/15/2022 10:00 AM EDT TH Visit (TeleHealth) [place] [address] Kim Gonzalez MD [facility] [place] [address] Irritable bowel syndrome with constipation; Functional dyspepsia Social History Tobacco Use Types Packs/Day Years Used Date Smoking Tobacco: Never Assessed Sex and Gender Information Value Date Recorded Sex Assigned at Not on file Gender Identity Not on file Sexual Orientation Not on file documented as of this encounter Patient Instructions * Patient Instructions* Kim Gonzalez MD - 05/15/2022 10:00 AM EDT Recommendations Continue hyoscyamine at night as this helps facilitate the passage of gas Ok to continue Motegrity + Trulance as long as you are able Unfortunately Zelnorm direct care worker has actually stopped making this drug just [...] understand risk of incontinence for you and managementoptions. Continue Miralax Continue peppermint NOW brand 1 [...] sooner than this, recommend visit with associated [facility] provider - please reach out to us and let us know documented in this encounter Progress Notes * Kim Gonzalez MD - 05/15/2022 10:00 AM EDT [facility] Section of Gastroenterology and Hepatology [...] stools to move her bowels), Dulcolax(rescue, just 1 - works but really unpleasant, [...] has some motegrity left (using 2-3x/wk) - 50/50 shot if it's going to work. Doesn't take it daily. Takes it when she's going to work (the nightbefore or in the AM). Has 23 pills of motegrity left. Has 3 mo of trulance left. Palpitations checked out ok with PCP. EKG ok. Fewer episodes now. No chest pain. Amitiza didn't make her feel good when she good it. In a financial hole. Does not want to spend more $ for something like this. Hyoscyamine - takes [...] constipated based on imaging. Started seeing a process mold technician then. Does not recallever having hard stools [...] off it for a while (when used incombo with Miralax and dulcolax PRN) ?? Phazyme [...] 1 tablet by mouth every 4 hours asneeded for Cramping. Max 6 pills per day., Disp: 30 tablet, Rfl: 3 ??? plecanatide (Trulance) 3 mg Tablet, Take 1 tablet by mouth daily., Disp: 90 tablet, Rfl: 3 ??? mirabegron (Myrbetriq) 50 mg Tablet Sustained Release 24 hr, Take 50 mg by mouth daily., Disp: , Rfl: ??? rizatriptan (MAXALT-BLOOD BANK ASSISTANT) 10 mg Tablet, Rapid Dissolve, Take 10 [...] trials of linzess, amitiza, motegrity and trulance. Dulcolaxdose help but response is unpleasant and interferes with sleep. She engaged in just 1 CBT for chronic pain group session. Ongoing symptoms. She has found some effective strategies to manage her constipation and has some good days, but abdominal pain continues to impact her QoL. We discussed risks/benefits of Tegaserod (Zelnorm). Unfortunately, the direct care worker will no longer be producing this drug in the [place] (reportedly a business decision, not based on efficacy or safety), so this is not an option. Recommendations ?? Continue hyoscyamine at night as this helps facilitate the passage of gas ?? Ok to continue Motegrity + Trulance as long as you are able ?? Unfortunately Zelnorm direct care worker has actually stopped making this drug just [...] - discussed today; she wants to hold off 2/2 to fatigue ?? Buspar (relaxes the stomach), low dose only 5mg prior to dinner to help you eat more, not previously tried for anxiety ?? Domperidone 10 to 20mg prior to dinner meal (from Brittny) to help with gastric emptying ?? Mirtazipine;' would avoid TCA at this time, did not tolerate gabapentin and amitriptyline 2/2 tofatigue ?? Sitz Marker test, currently deferred given inadequate pelvic floor analysis; CAMERON declined ?? Bethany's Tummy Teas (discussed) - cost ; discussed tummy fibers but too $$ ?? Discussed diaphragmatic breathing again she is very familiar with this ?? Recommended pelvic floor testing (declined); PT melanieal reported descent of pelvic floor which islimited, recommend re-considering evaluation at [facility] Follow-up in: 6 months - if follow-up is needed sooner than this, recommend visit with associated [facility] provider The patient was located in [place] at the time of their visit. TIME SPENT WITH PATIENT Time spent face to face with patient on the day of the encounter: 30 minutes The risks, benefits and alternatives were discussed with the patient who understands and agrees with above. Kim Gonzalez MD 05/15/22 Kim Gonzalez MD [employer] Curerelectrical drafter Section of Gastroenterology and Hepatology [facility] [email or web address] ([email or web address]) documented in this encounter Plan of Treatment Upcoming Encounters Date Type Department Care Team (Late st Contact Info) Description 07/17/2024 1:00 PM EST Office Visit Obstetrics [place] [address] Roma Lara MD [facility] DR OBSTETRICS [place] [address] 10/27/2024 11:00 AM EST TH Visit (TeleHealth) [place] [address] Kim Gonzalez MD [facility] [place] [address] documented as of this encounter Visit Diagnoses Diagnosis Irritable bowel syndrome with constipation Irritable bowel syndrome Functional dyspepsia Dyspepsia and other specified disorders of function of stomach documented in this encounter Care Teams Potato Peeler Relationship Specialty Start Date End Date John Rosario DNP [address] [place] [address] PCP - General Family Medicine 07/23/19 04/11/23 documented as of this encounter
--- OUTSIDE RECORDS SUMMARY | 2024-07-04 03:01 | XMS_ITS | Encounter Summary ---
[place] [address] Care Team Providers Care Leather Craftsman Name Role Phone Marlene, John Lopezvictor manuel FLORENTINO Primary Care Provider [phone] Encounter Details Date Type Department Care Team (Late st Contact Info) Description 10/31/2021 Telephone [place] [phone] Carmen Bennett CMA GASTROENTEROLOGY DEPT Social History Tobacco Use Types Packs/Day [...] Prior Authorization 4L Gastroenterology / [place] [address] Subscriber Insurance: [place] Phone: Fax: Physician: Kim Gonzalez Return Pharmacy: Phone: Fax: Medication Requested: Trulance Strength: 3 mg Frequency: Disp.: Refills: Currently taking: yes Diagnosis for this medication: IBS-C ICD-10 code: Prior medications trialed in this patient: Miralax Colace Amitiza Linzess Motegrity Medication: Outcome/Adverse Reactions: treatment failure Decision: approved Tracking number/Case number/Reference number: [id number] Effective date: Start: 10/31/2021 End: 10/31/2022 documented in this encounter Plan of Treatment Upcoming Encounters Date Type Department Care Team (Late st Contact Info) Description 07/17/2024 1:00 PM EST Office Visit Obstetrics [place] [address] Roma Lara MD [facility] DR OBSTETRICS [place] [address] 10/27/2024 11:00 AM EST TH Visit (TeleHealth) [place] [phone] Kim Gonzalez MD [facility] [address] [place] [address] documented as of this encounter Visit Diagnoses Not on filedocumented in this encounter Care Teams Leather Craftsman Relationship Specialty Start Date End Date John Rosario DNP [address] [place] [address] PCP - General Family Medicine 07/23/19 04/11/23 documented as of this encounter
--- OUTSIDE RECORDS SUMMARY | 2024-07-04 03:01 | XMS_ITS | Encounter Summary ---
Author Organization [facility] [place] [address] Care Team Providers Care Pediatrics Hospitalist Name Role Phone Unavailable Primary Care Provider Unavailabl e Encounter Details Date Type Department Care Team (Late st Contact Info) Description 09/28/2017 Ancillary Procedure Radiology Library at [facility] [place] [address] Dea Kc, TRIM LINE WORKER [address] [place], [place] [id number] Social History Tobacco Use Types Packs/Day Years [...] EST Office Visit Obstetrics [place] [phone] Roma Lara MD [facility] OBSTETRICS [place] [address] 10/27/2024 11:00 AM EST TH Visit (TeleHealth) [place] [phone] Kim Gonzalez MD [facility] [place] [address] documented as of this encounter Procedures Procedure Name Priority Date/Time Associated Diagnosis Comments FILM LIBRARY STORAGE ONLY MAMMO Routine 09/28/2017 12:00 AM EST documented in this encounter Results * Film Library- Storage Only Mammo (09/28/2017 12:00 AM EST) Narrative RAD - 07/18/2023 12:56 PM EST This exam is auto-finalizing. It's purpose is for storage only. Dea Kc APRN Valery FILM LIBRARY ORD ERABLES [place], [place] documented in this encounter Visit Diagnoses Not on filedocumented in this encounter
--- OUTSIDE RECORDS SUMMARY | 2024-07-04 03:01 | XMS_ITS | Encounter Summary ---
Author Organization [facility] [place] [address] Care Team Providers Care Premises Technician Name Role Phone John Rosario FLORENTINO Primary Care Provider [phone] Reason for Visit * Reason Onset Date Comments Medication Refill 11/21/2021 Encounter Details Date Type Department Care Team (Late st Contact Info) Description 11/21/2021 [place] [address] Domi Orozco, RN Irritable bowel syndrome with constipation Social History [...] EST Office Visit Obstetrics [place] [phone] Roma Lara MD [facility] DR [place] [address] 10/27/2024 11:00 AM EST TH Visit (TeleHealth) [place] [phone] Kim Gonzalez MD [facility] [place] [place] [address] documented as of this encounter Visit Diagnoses Diagnosis Irritable bowel syndrome with constipation Irritable bowel syndrome documented in this encounter Care Teams Premises Technician Relationship Specialty Start Date End Date John Rosario DNP [address] [place] [address] PCP - General Family Medicine 07/23/19 04/11/23 documented as of this encounter
--- OUTSIDE RECORDS SUMMARY | 2024-07-04 03:01 | XMS_ITS | Encounter Summary ---
Author Organization [facility] [place] [address] Care Team Providers Care Casino Dealer Name Role Phone Unavailable Primary Care Provider Unavailabl e Encounter Details Date Type Department Care Team (Late st Contact Info) Description 01/31/2019 Ancillary Procedure Radiology Library at [facility] [place] [address] Dea Kc, METHODS STUDY ANALYST [address] [place], [place] [id number] Social History Tobacco Use Types Packs/Day Years [...] EST Office Visit Obstetrics [place] [phone] Roma Lara MD [facility] OBSTETRICS [place] [address] 10/27/2024 11:00 AM EST TH Visit (TeleHealth) [place] [phone] Kim Gonzalez MD [facility] [place] [address] documented as of this encounter Procedures Procedure Name Priority Date/Time Associated Diagnosis Comments FILM LIBRARY STORAGE ONLY MAMMO Routine 01/31/2019 12:00 AM EDT documented in this encounter Results * Film Library- Storage Only Mammo (01/31/2019 12:00 AM EDT) Narrative [facility] - 07/18/2023 12:52 PM EST This exam is auto-finalizing. It's purpose is for storage only. Dea Kc APRN IMValery FILM LIBRARY ORD ERABLES [place], [place] documented in this encounter Visit Diagnoses Not on filedocumented in this encounter
--- OUTSIDE RECORDS SUMMARY | 2024-07-04 03:01 | XMS_ITS | Encounter Summary ---
[place] [address] Care Team Providers Care Product Test Specialist Name Role Phone John Rosario FLORENTINO Primary Care Provider [phone] Reason for Visit * Reason Onset Date Comments Reminder Appointment 01/09/2022 Encounter Details Date Type Department Care Team (Late st Contact Info) Description 01/09/2022 Telephone [place] [address] Macarena Fenton CCMA Reminder Appointment Social History Tobacco Use Types [...] EST Office Visit Obstetrics [place] [address] Roma Lara MD [facility] OBSTETRICS [place] [phone] 10/27/2024 11:00 AM EST TH Visit (TeleHealth) [place] [address] Kim Gonzalez MD [facility] [place] [address] documented as of this encounter Visit Diagnoses Not on filedocumented in this encounter Care Teams Product Test Specialist Relationship Specialty Start Date End Date John Rosario DNP [address] [place] [address] PCP - General Family Medicine 07/23/19 04/11/23 documented as of this encounter
--- OUTSIDE RECORDS SUMMARY | 2024-07-04 03:01 | XMS_ITS | Encounter Summary ---
[place] [address] Care Team Providers Care Community Aide Name Role Phone John Rosario FLORENTINO Primary Care Provider [phone] Reason for Visit * Reason Onset Date Comments Reminder Appointment 09/26/2021 Encounter Details Date Type Department Care Team (Late st Contact Info) Description 09/26/2021 Telephone [place] [address] Fouzia Neal CCMA Reminder Appointment Social History Tobacco Use Types Packs/Day Years Used Date Smoking Tobacco: Never Assessed Sex and Gender Information Value Date Recorded Sex Assigned at Not on file Gender Identity Not on file Sexual Orientation Not on file documented as of this encounter Miscellaneous Notes * Telephone Encounter - Fouzia Neal CCMA - [...] EST Office Visit Obstetrics [place] [address] Roma Lara MD [facility] DR OBSTETRICS [place] [address] 10/27/2024 11:00 AM EST TH Visit (TeleHealth) [place] [address] Kim Gonzalez MD [facility] [address] documented as of this encounter Visit Diagnoses Not on filedocumented in this encounter Care Teams Community Aide Relationship Specialty Start Date End Date John Rosario DNP [address] [place] [address] PCP - General Family Medicine 07/23/19 04/11/23 documented as of this encounter
--- OUTSIDE RECORDS SUMMARY | 2024-07-04 03:01 | XMS_ITS | Encounter Summary ---
Author Organization [facility] [place] [address] Care Team Providers Care Otolaryngology Physician Name Role Phone John Rosario FLORENTINO Primary Care Provider [phone] Reason for Visit * Reason Comments Medication Refill Encounter Details Date Type Department Care Team (Late st Contact Info) Description 10/25/2022 Ref[place] [phone] Frank Bhardwaj MD [facility] [place] [address] Social History Tobacco Use Types Packs/Day Years [...] EST Office Visit Obstetrics [place] [phone] Roma Lara MD [facility] DR OBSTETRICS [place] [address] 10/27/2024 11:00 AM EST TH Visit (TeleHealth) [place] [phone] Kim Gonzalez MD [facility] [place] [address] documented as of this encounter Visit Diagnoses Not on filedocumented in this encounter Care Teams Otolaryngology Physician Relationship Specialty Start Date End Date John Rosario DNP [address] [place] [address] PCP - General Family Medicine 07/23/19 04/11/23 documented as of this encounter
--- OUTSIDE RECORDS SUMMARY | 2024-07-04 03:01 | XMS_ITS | Encounter Summary ---
[place] [address] Care Team Providers Care Veterinary Practitioner Name Role Phone John Rosario FLORENTINO Primary Care Provider [phone] Reason for Visit * Reason Onset Date Comments Reminder Appointment 11/30/2020 Encounter Details Date Type Department Care Team (Late st Contact Info) Description 11/30/2020 Telephone [place] [address] Macarena Fenton CCMA Reminder Appointment [...] EST Office Visit Obstetrics [place] [address] Roma Lara MD [facility] DR OBST[place] [address] 10/27/2024 11:00 AM EST TH Visit (TeleHealth) [place] [address] Kim Gonzalez MD [facility] [place] [address] documented as of this encounter Visit Diagnoses Not on filedocumented in this encounter Care Teams Veterinary Practitioner Relationship Specialty Start Date End Date John Rosario DNP [address] [place] [address] PCP - General Family Medicine 07/23/19 04/11/23 documented as of this encounter
--- OUTSIDE RECORDS SUMMARY | 2024-07-04 03:01 | XMS_ITS | Encounter Summary ---
[place] [address] Care Team Providers Care Zipper Ironer Name Role Phone John Rosario DNP Primary Care Provider [phone] Encounter Details Date Type Department Care Team (Late st Contact Info) Description 03/24/2021 Telephone [place] [address] Ivy Hagan Social History Tobacco Use Types Packs/Day Years Used Date Smoking Tobacco: Never Assessed Sex and Gender Information Value Date Recorded Sex Assigned at Not on file Gender Identity Not on file Sexual Orientation Not on file documented as of this encounter Miscellaneous Notes * Telephone Encounter - Ivy Hagan - 03/24/2021 12:47 PM EDT ANORECTAL MANOMETRY CLINICAL SAFETY CHECKLIST 03/24/2021 Ivy Buck [address] [place] [address] [id number] : 1970 REFERRING PROVIDER: Carlos PRIMARY CARE [...] the patient should speak with their provider to consider alternative testing. The nuclear power reactor operator should also contact the provider's office directly tonotify them that we are unable to schedule [...] EST Office Visit Obstetrics [place] [address] Roma Lara MD [facility] DR OBSTETRICS [place] [address] 10/27/2024 11:00 AM EST TH Visit (TeleHealth) [place] [address] Kim Gonzalez MD [facility] [place] [address] documented as of this encounter Visit Diagnoses Not on filedocumented in this encounter Care Teams Zipper Ironer Relationship Specialty Start Date End Date John Rosario DNP [address] [place] [address] PCP - General Family Medicine 07/23/19 04/11/23 documented as of this encounter
--- OUTSIDE RECORDS SUMMARY | 2024-07-04 03:01 | XMS_ITS | Encounter Summary ---
[place] [address] Care Team Providers Care Zoo Keeper Name Role Phone John Rosario [facility] Primary Care Provider [phone] Reason for Referral * Consultation (Routine) - Closed Specialty Diagnoses / Procedures Referred By Contac t Referred To Contact Gastroenterology Diagnoses Chronic constipation ARM for constipation Smartpill (oh medicaid doesn't cover) Procedures ANORECTAL MANOMETRY ARM for constipation Smartpill (oh medicaid doesn't cover) Kim Gonzalez MD [facility] [place] [address] [facility] [address] [place] [id number] Referral ID Status Reason Start Date Expiration Date V isits Requested Visits Authorized [id number] Closed Consult, Test & Treat 12/19/2020 12/19/2021 1 1 Reason for Visit * Consultation (Routine) - Closed Specialty Diagnoses / Procedures Referred By Contac t Referred To Contact Gastroenterology Diagnoses Gastroparesis Irritable bowel syndrome with constipation Motility- Gastroparesis/ IBS-C Lauren Carmona W, HOTEL RECEPTIONIST [address] [place] [address] [facility] [address] [place] [phone] Referral ID Status Reason Start Date Expiration Date V isits Requested Visits Authorized [id number] Closed Consult, Test & Treat [facility] PCP Updated and/or Approved 09/10/2020 09/10/2021 6 6 Encounter Details Date Type Department Care Team (Latest Contact Info) Description 11/30/2020 10:00 AM EDT TH Visit (TeleHealth) [place] [address] Kim Gonzalez MD [facility] [place] [address] Irritable bowel syndrome, unspecified type; Chronic constipation; Dyspepsia Social History Tobacco Use Types Packs/Day Years Used Date Smoking Tobacco: Never Assessed Sex and Gender Information Value Date Recorded Sex Assigned at Not on file Gender Identity Not on file Sexual Orientation Not on file documented as of this encounter Patient Instructions * Patient Instructions* Kim Gonzalez MD - 11/30/2020 10:00 AM EDT Recommendations ?? Anorectal manometry (muscle testing with a balloon catheter for chronic constipation). Pelvic floor dysfunction (overactive pelvic floor muscles that don't coordinate together effectively during abowel movement) is a common cause of constipation that is treatable with pelvic floor therapy. Thisis best done prior to assessing for a slow colon. Multiple sclerosis can both cause a slow colon and affect the pelvic floor muscles and make them more spastic. ?? See information below about dyssynergia that can contribute to distention and constipation andthe benefits of diaphragmatic breathing ?? SmartPill wireless motility capsule if covered by insurance (looking into this) - would need to combine this with an MRI (MR enterography) to make sure there are no narrow areas in the bowel for the capsule to get stuck. ?? If the SmartPill is not covered, then would recommend a test called a Sitz Marker to assess the speed of your colon ?? At some point, [...] upper and lower GI symptoms), order on OneClass, just be aware of the seller as with all things on OneClass. The original is a Setswana product ([employer]). ?? Rescue strategy: Glycerine or dulcolax suppository after breakfast or after dinner to help stimulate evacuation of stool and air/gas ?? Can continue peppermint capsules (recommend enteric coated, any brand) See information abdomino-phrenic & pelvic floor dyssynergia that can contribute to abdominal distention (and constipation) ??? https://www.iffgd.org/commentary/agoxzmdphrtgr-ivgvcfpaua-jd-disorders.html Diaphragmatic breathing - start doing this several times per day ??? https://my.[facility].org/health/articles/9955-aighgvpzgsjij-fcfsqfnxw ??? https://www.[facility].org/conditions-treatments/mimieitbvkxhi-oxgqxkqve-qt-pepe ents Follow-up in: 4-6 months documented in this encounter Progress Notes * Kim Gonzalez MD - 11/30/2020 10:00 AM EDT [facility] Section of Gastroenterology and Hepatology New Patient Telemedicine Visit PCP: John Rosario APRN Referring provider: Lauren Carmona APRN [address] [place] [address] HPI This is a 50 y.o. female kindly referred by John Rosario APRN for evaluation and management ofIBS-C and gastroparesis. GI Problem List 1. Gastroparesis [...] constipated based on imaging. Started seeing a custom feed mill operator helper then. Does not recallever having hard stools [...] Gatherings with Friends and Family: ??? Attends Gnosticist Services: ??? Active Member of Clubs or [...] muscles that don't coordinate together effectively during abowel movement) is a common cause of constipation that is treatable with pelvic floor therapy. Thisis best done prior to assessing for a slow colon. Multiple sclerosis can both cause a slow colon and affect the pelvic floor muscles and make them more spastic. ?? See information below about dyssynergia that can contribute to distention and constipation andthe benefits of diaphragmatic breathing ?? SmartPill wireless motility capsule if covered by insurance (looking into this) - would need to combine this with an MRI (MR enterography) to make sure there are no narrow areas in the bowel for the capsule to get stuck. ?? If the SmartPill is not covered, then would recommend a test called a Sitz Marker to assess the speed of your colon ?? At some point, [...] upper and lower GI symptoms), order on OneClass, just be aware of the seller as with all things on OneClass. The original is a Setswana product (Antony). ?? Rescue strategy: Glycerine or dulcolax suppository after breakfast or after dinner to help stimulate evacuation of stool and air/gas ?? Can continue peppermint capsules (recommend enteric coated, any brand) See information abdomino-phrenic & pelvic floor dyssynergia that can contribute to abdominal distention (and constipation) ??? https://www.iffgd.org/commentary/xkcjnqbjqlurk-uujdxsfqvl-qa-disorders.html Diaphragmatic breathing - start doing this several times per day ??? https://my.[employer].org/health/articles/5436-aqmgxituazvwr-posfbpkxr ??? https://www.[facility].org/conditions-treatments/wrqwgbwrkhkgi-jnscddwfq-go-pepe ents Follow-up in: 4-6 months The risks, benefits and alternatives were discussed with the patient who understands and agrees with above. I spent 60 minutes face to face with the patient. Greater than 30 minutes were spent on counseling and discussion as of the above during this telemedicine visit. The patient was located in [place] atthe time of their visit. Kim Gonzalez MD 12/19/20 Kim Gonzalez MD Customer Marketing Managershoe worker Section of Gastroenterology and Hepatology [facility] [email or web address] ([email or web address]) documented in this encounter Plan of Treatment Upcoming Encounters Date Type Department Care Team (Late st Contact Info) Description 07/17/2024 1:00 PM EST Office Visit Obstetrics [place] [address] Roma Lara MD [facility] [address] [place]ST[place] [address] 10/27/2024 11:00 AM EST TH Visit (TeleHealth) [place] [address] Kim Gonzalez MD [facility] [place] [address] Scheduled Referrals Name Type Priority Associated Diagnoses Order Schedule Referral to Gastroenterology Outpatient Referral Routine Chronic constipation Ordered: 12/19/2020 documented as of this encounter Visit Diagnoses Diagnosis Irritable bowel syndrome, unspecified type Chronic constipation Unspecified constipation Dyspepsia Dyspepsia and other specified disorders of function of stomach documented in this encounter Care Teams Zoo Keeper Relationship Specialty Start Date End Date John Rosario DNP [address] [place] [address] PCP - General Family Medicine 07/23/19 04/11/23 documented as of this encounter
--- OUTSIDE RECORDS SUMMARY | 2024-07-04 03:01 | XMS_ITS | Encounter Summary ---
[place] [address] Care Team Providers Care Bus Mechanic Name Role Phone John Rosario FLORENTINO Primary Care Provider [phone] Reason for Visit * Consultation (Routine) - Closed Specialty Diagnoses / Procedures Referred By Contac t Referred To Contact Gastroenterology Diagnoses Abdominal bloating HBT - lactulose - SIBO Procedures BREATH HYDROGEN TEST PRF HBT - lactulose - SIBO Kim Gonzalez MD [facility] [place] [address] [facility] [address] [place] [address] Referral ID Status Reason Start Date Expiration Date V isits Requested Visits Authorized [id number] Closed Consult, Test & Treat 04/11/2021 04/11/2022 1 1 Encounter Details Date Type Department Care Team (Late st Contact Info) Description 06/06/2021 12:00 PM EDT Procedure [place] [address] Bloating Social History Tobacco Use Types Packs/Day Years Used Date Smoking Tobacco: Never Assessed Sex and Gender Information Value Date Recorded Sex Assigned at Not on file Gender Identity Not on file Sexual Orientation Not on file documented as of this encounter Progress Notes * Margot Cheng, MUFFLER MECHANIC - 06/06/2021 12:00 PM EDT Gastroenterology Breath Test Report Patient: Yumi Buck Date Of : 1970 PCP: John Rosario APRN Referring: Kim Gonzaelz STUDY DATE: 06/07/2021 PROVIDER: Margot Cheng APRN INDICATION: bloating ppmH2 ppmCH4 CO2(f) Fasting Baseline 0 2 2.8/2.17 Administer sugar: Lactulose 10g with 90 mL H2O Sample Time ppmH2 ppmCH4 CO2(f) 90 min 0 2 2.8/2.17 Interpretation: Negative hydrogen breath test. Negative methane breath test. Patient reported no symptoms during the test. Clinical interpretation is based on the Hydrogen and Methane-Based Breath Testing in Gastrointestinal Disorders: The [place] Consensus (Am J Gastroenterol 2017; 112(5):775-84. Apositive breath test is defined as a rise in hydrogen production >20 ppm compared to baseline within 90 minutes. Methane-positive is defined by at least 10 ppm production of methane. Signed, Margot Cheng APRN Gastroenterology [place] [address] P: [phone] F: [phone] Copy: Kim Rosario APRN documented in this encounter Plan of Treatment Upcoming Encounters Date Type Department Care Team (Late st Contact Info) Description 07/17/2024 1:00 PM EST Office Visit Obstetrics [place] [address] Roma Lara MD [facility] DR OBSTETRICS [place] [address] 10/27/2024 11:00 AM EST TH Visit (TeleHealth) [place] [address] Kim Gonzalez MD [facility] [place] [address] Scheduled Referrals Name Type Priority Associated Diagnoses Order Schedule Referral to Gastroenterology Outpatient Referral Routine Abdominal bloating Ordered: 04/11/2021 documented as of this encounter Visit Diagnoses Diagnosis Bloating Flatulence, eructation, and gas pain documented in this encounter Care Teams Bus Mechanic Relationship Specialty Start Date End Date John Rosario DNP [address] [place] [address] PCP - General Family Medicine 07/23/19 04/11/23 documented as of this encounter
--- OUTSIDE RECORDS SUMMARY | 2024-07-04 03:01 | XMS_ITS | Encounter Summary ---
[place] [address] Care Team Providers Care Combustion Engineer Name Role Phone John Rosario DNP Primary Care Provider [phone] Encounter Details Date Type Department Care Team (Late st Contact Info) Description 10/11/2021 Telephone [place] [phone] Cris Younger Social History Tobacco Use Types Packs/Day Years Used Date Smoking Tobacco: Never Assessed Sex and Gender Information Value Date Recorded Sex Assigned at Not on file Gender Identity Not on file Sexual Orientation Not on file documented as of this encounter Miscellaneous Notes * Telephone Encounter - Cris Younger - 10/12/2021 3:09 PM EST Left second message for patient to contact the office for scheduling. Dr Gonzalez has referred the patient to [facility]s [facility]. ?? Group 1 starting 11/14 3pm-4pm Group 2 starting 12/12 11am-12pm * Telephone Encounter - Cris Younger - 10/11/2021 10:12 AM EST CORRECTION: Group 1 starts 11/14 3pm-4pm * Telephone Encounter - Cris Younger - 10/11/2021 9:29 AM EST Left message for patient to contact the office for scheduling. Dr Gonzalez has referred the patient to 's [facility]. Group 1 starting 11/17 3pm-4pm Group 2 starting 12/12 11am-12pm documented in this encounter Plan of Treatment Upcoming Encounters Date Type Department Care Team (Late st Contact Info) Description 07/17/2024 1:00 PM EST Office Visit Obstetrics [place] [address] Roma Lara MD [facility] DR OBSTETRICS [place] [address] 10/27/2024 11:00 AM EST TH Visit (TeleHealth) [place] [address] Kim Gonzalez MD [facility] [place] [address] documented as of this encounter Visit Diagnoses Not on filedocumented in this encounter Care Teams Combustion Engineer Relationship Specialty Start Date End Date John Rosario DNP [address] [place] [address] PCP - General Family Medicine 07/23/19 04/11/23 documented as of this encounter
--- OUTSIDE RECORDS SUMMARY | 2024-07-04 03:01 | XMS_ITS | Encounter Summary ---
Author Organization [facility] [place] [address] Care Team Providers Care Magazine Designer Name Role Phone John Rosario FLORENTINO Primary Care Provider [phone] Reason for Visit * Reason Onset Date Comments Medication Refill 12/08/2020 Encounter Details Date Type Department Care Team (Late st Contact Info) Description 12/08/2020 Refill [place] [phone] Gloria Medina, RN Social History Tobacco Use Types Packs/Day Years [...] EST Office Visit Obstetrics [place] [phone] Roma Lara MD [facility] DR OBSTETRICS [place] [address] 10/27/2024 11:00 AM EST TH Visit (TeleHealth) [place] [phone] Kim Gonzalez MD [facility] [place] [address] documented as of this encounter Visit Diagnoses Not on filedocumented in this encounter Care Teams Magazine Designer Relationship Specialty Start Date End Date John Rosario DNP [address] [place] [address] PCP - General Family Medicine 07/23/19 04/11/23 documented as of this encounter
--- OUTSIDE RECORDS SUMMARY | 2024-07-04 03:01 | XMS_ITS | Encounter Summary ---
Author Organization [facility] [place] [address] Care Team Providers Care Lace Inspector Name Role Phone John Rosario DNP Primary Care Provider [phone] Encounter Details Date Type Department Care Team (Late st Contact Info) Description 08/17/2022 Telephone [place]stetrics [place] [address] Marj Montes Social History Tobacco [...] EST Office Visit [place] [address] Roma Lara MD [facility] DR OBSTETRICS [place] [address] 10/27/2024 11:00 AM EST TH Visit (TeleHealth) [place] [address] Kim Gonzalez MD [facility] [place] [address] documented as of this encounter Visit Diagnoses Not on filedocumented in this encounter Care Teams Lace Inspector Relationship Specialty Start Date End Date John Rosario DNP [address] [place] [address] PCP - General Family Medicine 07/23/19 04/11/23 documented as of this encounter
--- OUTSIDE RECORDS SUMMARY | 2024-07-04 03:01 | XMS_ITS | Encounter Summary ---
Author Organization [facility] [place] [address] Care Team Providers Care Safety Inspector Name Role Phone John Rosario DNP Primary Care Provider [phone] Encounter Details Date Type Department Care Team (Latest Contact Info) Description 01/09/2022 10:00 AM EDT TH Visit (TeleHealth) [place] [phone] Kim Gonzalez MD [facility] [place] [address] Irritable bowel syndrome with constipation; Dyspepsia; Abdominal bloating Social History Tobacco Use Types Packs/Day Years Used Date Smoking Tobacco: Never Assessed Sex and Gender Information Value Date Recorded Sex Assigned at Not on file Gender Identity Not on file Sexual Orientation Not on file documented as of this encounter Patient Instructions * Patient Instructions* Kim Gonzalez MD - 01/10/2022 12:09 PM EDT Recommendations Please get palpitations evaluated by your PCP and get screened for other cardiovascular risk factors If no worrisome cardiac findings, would recommend considering Tegaserod (Zelnorm). See this websiteabout it: https://www.[employer].com/ Ok to continue Motegrity + Trulance - would try to stretch to every other day Alternatives: Consider trying to add Amitiza (the generic lubiprostone is available on Good rx and every other day dosing would be about $40 a month - we could try a low dose to minimize potential side effects like nausea) to Motegrity (prescribed) Dulcolax if needed (altnerative: senna or smooth move tea) Agree with consideration of hysterectomy. Try to understand risk of incontinence for you and management options. Urogynecology - I would suggest Dr. Nicole Moses (see: https://www.[facility]/findaprovider/team?mwfwXw=173) Continue Cognitive Behavioral Therapy for Pain Group which can help with management of chronic pain Continue Miralax Continue peppermint NOW brand 1 twice a day Follow-up in 4 months documented in this encounter Progress Notes * Kim Gonzalez MD - 01/09/2022 10:00 AM EDT [facility] Section of Gastroenterology and Hepatology [...] - normal BMs on a regular basis andNOT in pain The last few days have been horrible for her - pain Did go back to work - 3 days a week - been horrible because of the degree of pain, trying to pretend it's ok Daily, small BMs - avoiding dulcolax [...] - answer was a hysterectomy - hesitant aboutthis Worried about urinary incontinence with this Review [...] constipated based on imaging. Started seeing a flight controls engineer then. Does not recallever having hard stools [...] mouth daily., Disp: , Rfl: ??? rizatriptan (MAXALT-HYDRAULIC MECHANIC) 10 mg Tablet, Rapid Dissolve, Take 10 [...] in the context of dysmotility. Great response from Motegrity and Trulance combined (neither alone is sufficiently [...] Tegaserod (Zelnorm). See this website about it: https://www.[employer]/ ?? Ok to continue Motegrity + Trulance - would try to stretch to every other day ?? Alternatives: Consider trying to add Amitiza (the generic lubiprostone is available on Good rx and every other day dosing would be about $40 a month - we could try a low dose to minimize potentialside effects like nausea) to Motegrity (prescribed) ?? Dulcolax if needed (altnerative: senna or smooth move tea) ?? Agree with consideration of hysterectomy. Try to understand risk of incontinence for you and management options. Urogynecology - I would suggest Dr. Nicole Moses (see: https://www.[facility].org/findaprovider/team?xpnzWc=533) ?? Continue Cognitive Behavioral Therapy [facility] which can help with management of chronic pain ?? Continue Miralax ?? Continue peppermint NOW brand 1 twice a day Other options diagnostic/therapeutic for us to consider ?? Tegaserod as above, see: https://www.[employer]/news/gastroenterology/26804884/ryp-zipypten-dgmph sjxrytxzj-nz-xzxltbs-dwp-frfa-ms-certain-women ?? Trial of Senna or smooth move [...] omar reported descent of pelvic floor which islimited, recommend re-considering evaluation at [facility] Follow-up in: 4 months The patient was located in [place] at the time of their visit. TIME SPENT WITH PATIENT Time spent face to face with patient on the day of the encounter: 30 minutes The risks, benefits and alternatives were discussed with the patient who understands and agrees with above. Kim Gonzalez MD 01/08/22 Kim Gonzalez MD Social Science Research Assistantdisplay associate Section of Gastroenterology and Hepatology [facility] Juan [email or web address] (p) documented in this encounter Plan of Treatment Upcoming Encounters Date Type Department Care Team (Late st Contact Info) Description 07/17/2024 1:00 PM EST Office Visit Obstetrics [place] [address] Roma Lara MD [facility] DR OBSTETRICS [place] [address] 10/27/2024 11:00 AM EST TH Visit (TeleHealth) [place] [address] Kim Gonzalez MD [facility] [place] [address] documented as of this encounter Visit Diagnoses Diagnosis Irritable bowel syndrome with constipation Irritable bowel syndrome Dyspepsia Dyspepsia and other specified disorders of function of stomach Abdominal bloating Flatulence, eructation, and gas pain documented in this encounter Care Teams Safety Inspector Relationship Specialty Start Date End Date John Rosario DNP [address] [place] [address] PCP - General Family Medicine 07/23/19 04/11/23 documented as of this encounter
--- OUTSIDE RECORDS SUMMARY | 2024-07-04 03:01 | XMS_ITS | Encounter Summary ---
[place] [address] Care Team Providers Care Garnisher Name Role Phone John Rosario DNP Primary Care Provider [phone] Encounter Details Date Type Department Care Team (Late st Contact Info) Description 04/26/2021 Telephone [place] [address] Dinh Ochoa Social History Tobacco Use Types Packs/Day Years Used Date Smoking Tobacco: Never Assessed Sex and Gender Information Value Date Recorded Sex Assigned at Not on file Gender Identity Not on file Sexual Orientation Not on file documented as of this encounter Miscellaneous Notes * Telephone Encounter - Dinh Ochoa - 04/26/2021 1:27 PM EDT BREATH TEST CLINICAL SAFETY CHECKLIST 04/26/2021 [facility] [address] [facility] [address] [id number] : 1970 REFERRING PROVIDER: Kim Gonzalez PRIMARY [...] a lactulose or glucose breath test. DO NOT SCHEDULE either breath test, until this request is submitted. Separate breath test appointments are needed to test multiple sugars. If a patient needs more than one breath test, the breath tests must be scheduled on separate days in any order. QUESTIONS FOR THE PATIENT DIABETIC? No Diabetic patients should speak with their PCP or managing provider at least two weeks before the test to ask what medication or insulin adjustments are needed for testing. Patients fast 12 hours before testing and the test lasts 2-3 hours. DID [...] RMD: Kim Gonzalez, PCP: John Rosario APRN, wheelchair: No Please copy/paste the template above for each breath test that is needed. documented in this encounter Plan of Treatment Upcoming Encounters Date Type Department Care Team (Late st Contact Info) Description 07/17/2024 1:00 PM EST Office Visit Obstetrics [place] [address] Roma Lara MD [facility] DR OBSTETRICS [place] [address] 10/27/2024 11:00 AM EST TH Visit (TeleHealth) [place] [address] Kim Gonzalez MD [facility] [place] [address] documented as of this encounter Visit Diagnoses Not on filedocumented in this encounter Care Teams Garnisher Relationship Specialty Start Date End Date John Rosario DNP [address] [place] [address] PCP - General Family Medicine 07/23/19 04/11/23 documented as of this encounter
--- OUTSIDE RECORDS SUMMARY | 2024-07-04 03:01 | XMS_ITS | Encounter Summary ---
Author Organization [place] [address] Care Team Providers Care Bulk Sausage Casing Tier Off Name Role Phone John Rosario FLORENTINO Primary Care Provider [phone] Reason for Visit * Reason Onset Date Comments Prior Authorization 12/06/2020 Encounter Details Date Type Department Care Team (Late st Contact Info) Description 12/06/2020 Telephone [place] [address] Macarena Fenton CCMA Prior Authorization Social History Tobacco Use Types Packs/Day Years Used Date Smoking Tobacco: Never Assessed Sex and Gender Information Value Date Recorded Sex Assigned at Not on file Gender Identity Not on file Sexual Orientation Not on file documented as of this encounter Miscellaneous Notes * Telephone Encounter - Macarena Fenton LNA - 12/06/2020 11:47 AM EDT Medication Prior Authorization 4L Gastroenterology / [place] [address] Subscriber Insurance: [place] Medicaid Phone: Fax: Physician: Kim Gonzalez Return Pharmacy: [facility] Fax: Medication Requested: Xifaxan Strength: 550mg Frequency: 3 times daily Disp.: 42 Refills: 0 Currently taking: Diagnosis for this medication: IBS ICD-10 code: K58.9 Prior medications trialed in this patient: Medication: Outcome/Adverse Reactions: Decision: Denied. Patient does not have a diagnosis of IBS-D. Patient must have a documented trial and failure to dietary changes, and have had a trail and failure to two of the following classes. Amoxicillin-clavulanate, cephalosporin, metronidazole, fluoroquinolone, tetracycline, trimethoprim-sulfamethoxazole, SSRI, TCA, Antispasmodics, Antidiarrheals, Cholestyramine resin, and quantity limit is 1,200mg to 1,650mg/day. Tracking number/Case number/Reference number: Effective date: Start: End: documented in this encounter Plan of Treatment Upcoming Encounters Date Type Department Care Team (Late st Contact Info) Description 07/17/2024 1:00 PM EST Office Visit Obstetrics [place] [address] Roma Lara MD [facility] DR OBSTETRICS [place] [address] 10/27/2024 11:00 AM EST TH Visit (TeleHealth) [place] [address] Kim Gonzalez MD [facility] [place] [address] documented as of this encounter Visit Diagnoses Not on filedocumented in this encounter Care Teams Bulk Sausage Casing Tier Off Relationship Specialty Start Date End Date John Rosario DNP [address] [place] [address] PCP - General Family Medicine 07/23/19 04/11/23 documented as of this encounter
--- OUTSIDE RECORDS SUMMARY | 2024-07-04 03:01 | XMS_ITS | Encounter Summary ---
Author Organization [facility] Address [facility] [place] [address] Care Team Providers Care Coffee Machine Technician Name Role Phone John Rosario FLORENTINO Primary Care Provider [phone] Reason for Referral * Physical Therapy (Routine) - Closed Specialty Diagnoses / Procedures Referred By Contac t Referred To Contact Diagnoses Stress incontinence of urine OAB (overactive bladder) Levator spasm Chronic pelvic pain in female Nicole Moses MD [facility] [place] [address] Referral ID Status Reason Start Date Expiration Date V isits Requested Visits Authorized [id number] Closed Evaluate and Treat 07/01/2022 12/28/2022 12 12 Reason for Visit * Reason Comments Establish Care * Consultation (Routine) - Closed Specialty Diagnoses / Procedures Referred By Contac t Referred To Contact Obstetrics and Gynecology Diagnoses Urinary incontinence, unspecified type Kim Gonzalez MD [facility] [place] [address] Nicole Moses MD [facility] [place] [address] Referral ID Status Reason Start Date Expiration Date V isits Requested Visits Authorized [id number] Closed Consult, Test & Treat 01/18/2022 01/18/2023 1 1 Encounter Details Date Type Department Care Team (Late st Contact Info) Description 06/30/2022 11:00 AM EDT Office Visit Obstetrics [place] [address] Nicole Moses MD [facility] [place] [address] Stress incontinence of urine; OAB (overactive bladder); Levator spasm; Chronic pelvic pain in female; Irritable bowel syndrome with constipation; Chronic constipation; Uterine leiomyoma, unspecified location; Abnormal uterine bleeding Social History Tobacco Use [...] EDT Temperature 37 ??C (98.6 ??F) 06/30/2022 11: 09 AM EDT Respiratory Rate - - Oxygen Saturation 100% 06/30/2022 11: 09 AM EDT Inhaled Oxygen Concentration - - Weight 53.5 kg (117 lb 14.4 oz) 022 11:09 AM EDT Height 159 cm (5' 2.6) 06/30/2022 11:0 9 AM EDT Body Mass Index 21.15 06/30/2022 11:09 AM EDT documented in this encounter Patient Instructions * Patient Instructions* Nicole Moses MD - 06/30/2022 11:00 AM [...] spasms of the bladder. It can cause urine leakage, known as urge incontinence. Our first treatment approach is a range of home-based therapies that have been shown to be effective in reducing the number of voids (and leaks) per day. Start with the treatments listed below, and we will schedule a follow up telephone visit to providesupport for you and answer any questions. Pelvic floor physical therapy is also an option that can be very helpful. Home treatment options 1) Fluid management Avoid bladder irritants (caffeine, artificial sweeteners, alcohol, tobacco, carbonation, spicy/acidic foods & drinks) Decrease fluid intake at night or before a long drive/meeting to reduce voiding; instead, drink more at other times of day to stay well [...] as needed. This can help the bladder to relax. Elevate up on your toes several times, [...] use the Urge suppression strategies you have beenpracticing. If you find that you still do have urgency/leakage, then you should set a shorter time between voids and start over. 4) Bladder retraining - This [...] or squeeze your legs together. They should be relaxed as you isolate just your pelvic muscles. Recommended routine for pelvic floor relaxation: Start by pulling and holding a pelvic muscle squeeze for 1-3 seconds then relax for 3 to 10 seconds. If it hurts to squeeze the muscle, then do not squeeze, and instead just focus on relaxing. Do this for 10 repetitions 3 times a day, FOCUSING ON RELAXATION. As it gets easier to identify the muscles, you can make a habit of doing them when at the same timeas some other routine activities, such as brushing your teeth, washing the dishes, sitting at a redlight in your car, or watching a commercial [...] knee to your chest and diagonally to the opposite shoulder. Hold an easy stretch for 30 seconds. Breathe Mindfully. Repeat the stretch withthe right leg. Foot and Knee Up Start [...] seconds and breathe deeply into your belly. Your head can rest on the floor. Flat Frog Lie flat on your back, with the soles of your feet together and knees falling apart. Bring your feet comfortably close to your bottom. Hold an easy stretch for 30 seconds. Breathe deeply into your belly. Happy Baby. Start lying on your [...] an easy stretch for 20 seconds. Breathe mindfullyinto your belly. This stretch is only good for people with good knees! === Pelvic floor physical therapy: What to expect Be prepared to discuss your symptoms of bowel and bladder or pelvic pain in detail. Pelvic floor physical therapist usually perform an internal pelvic muscle exam (like a gynecologic exam) to determine strength, tone and coordination of the pelvic floor muscles. This allows us to develop an appropri ate treatment plan for you. Education: Your physical therapist will teach you about the structure and function of your pelvic floor muscles. Depending on your symptoms, we will also discussed the mechanisms of stress and urge incontinence, constipation, voiding dysfunction and pelvic pain. Pelvic floor exercises: You will learn how to perform a Kaden, which is a contraction of the muscles of the pelvic floor. Many women use unnecessary muscles when they do this, which makes them less effective. Depending on the finding during the evaluation, you may either perform Kaden's for relaxation or for strengthening. Biofeedback: A sensor allows you to visualize your pelvic floor muscle activity by seeing the contraction and relaxation of the muscles on a computer screen. Manual therapy: The therapist may use hands-on techniques such as massage and myofascial release toyour abdominal wall or pelvic floor muscles. You may be taught how to gently stretch your vaginal or rectal tissue yourself. Other treatments: Gentle electrical stimulation can be used to help facilitate a better muscle contraction or assist with coordination. You may be taught to use vaginal dilators to dilate the openingof the vagina. Behavioral: We may discuss fluid and dietary fiber intake as part of treatment plan. === documented in this encounter Progress Notes * Nicole Moses MD - 06/30/2022 11:00 AM EDT Female Pelvic Medicine and Reconstructive Surgery @ [facility] Patient Name: Yumi Batista Patient Primary Care [...] or with jumping or running if bladder is full. She has a diagnosis of overactive bladder and is on mirabegron 50mg for years. She previously wouldvoid, and feel like she had to void again and again and feel like she had to void again just a few minutes later. Now on the mirabegron, she voids maybe every 1-2 hour. Nocturia 1 x at night. She had prior urodynamic testing, was diagnosed with incomplete bladder emptying, and was started on mirabegron for overactive bladder. She saw a urologist or urogynecology provider in the past but can't remember who. She was going to try pelvic floor physical therapy, but provider broke her leg and she never. She was told she does not empty her bladder fully at one single visit; has never had to use a cath,was not taught to [facility] She has been on OCPs since age 15. She had an IUD that stopped her periods, but was associated withpain, and since removed, she has not had [...] light bleeding versus very heavy flow. She has gone 4 months. She has not been on [...] not have a consistent timing. She thinks the pain is similar to period cramps. She doesn't [...] with penetration. Previous urinary incontinence/prolapse treatments (Medical/Behavioral/Surgical): Heather She is from [place] and moved here 3 yrs ago. Her mother had a hysterectomy when she was 47, and 10 years later has urinary incontinence. Goals for this visit [...] incontinence treatment (Medical/Behavioral/Surgical): mirabegron 50mg XL daily perurologist she saw several years ago. ICIQ-UI Short [...] incontinence - leakage preceded immediately by urge tovoid Noctural enuresis - NOT IN ASSOCIATION WITH [...] yr ago had an abnormal, had colposcopy, noexcision/cryotherapy performed. Last pap: Recent; see media tab, NILM. Outpatient Medications Marked as Taking for the 06/30/22 encounter (Office Visit) with Wilfredo Moses MD Medication Sig Dispense Refill ??? [...] 50 mg by mouth daily. ??? rizatriptan (MAXALT-SUBSTANCE ABUSE COUNSELOR) 10 mg Tablet, Rapid Dissolve Take 10 [...] dip test and postvoid residual via the Eco-Site bladder scanner were obtained. After the patient voided, 0 mL was measured as a postvoid residual indicating normal emptying. Exam was performed with a maintenance machinist. General: normal appearing female, pleasant mood, normal [...] test (empty supine): neg External Genitalia: Vulva, Cibecue's and Bartholin glands normal, urethra without tenderness [...] dipstick Result Value Ref Range POC Sp Oklee 1.01 1.002 - 1.030 POC pH, UA [...] predict whether hysterectomy could have impact on continence. We discussed that worsened overactive bladder is possible, [...] with cough and sneeze, we reviewed the pathophysiology and potential treatments, including 1. Muscle strengthening, with [...] apparent that severe levator spasm significantly contributes to dyspareunia, as well as tenderness with palpation of Nabothian cysts. We discussed that tender andtight pelvic floor muscles are treated primarily with pelvic floor physical therapy, and recommended that she undertake this. It is also likely to help with stress urinary incontinence and overactivebladder, though those will not be the primary focus initially. We discussed that Nabothian cysts can be treated with electrosurgical ablation in office or OR, andthat if she wishes to pursue this, I would likely ask one of my colleagues who is more active with procedures on the cervix to perform this procedure. We discussed that treatment options to reduce bleeding and address fibroids can include OCPs (though I recommend stopping given migraine with aura), elagolix [...] EST Office Visit Obstetrics [place] [address] Roma Lara MD [facility] DR OBSTETRICS [place] [address] 10/27/2024 11:00 AM EST TH Visit (TeleHealth) [place] [address] Kim Gonzalez MD [facility] [place] [address] Scheduled Referrals Name Type Priority Associated Diagnoses Orde r Schedule Referral to Physical Therapy Outpatient Referral Routine Stress incontinence of urine OAB (overactive bladder) Levator spasm Chronic pelvic pain in female 06/30/2022 documented as of this encounter Procedures Procedure Name Priority Date/Time Associated Diagnosis Comments BLADDER SCANNER Routine 06/30/2022 Stress incontinence of urine OAB (overactive bladder) POCT URINE DIPSTICK Routine 06/30/2022 Stress incontinence of urine OAB (overactive bladder) documented in this encounter Results * Bladder Scanner (06/30/2022) Bladder Scan (mL) 0 mL Nicole Moses MD URO PROC W/O RFL ORD ERABLES * POCT urine dipstick (06/30/2022) POC Sp Oklee 1.01 1.002 - 1.030 POC pH, UA [...] Nicole Moses MD POINT OF CARE TEST O RDERABLES documented in this encounter Visit Diagnoses Diagnosis Stress incontinence of urine OAB (overactive bladder) Hypertonicity of bladder Levator spasm Abnormal involuntary movements Chronic pelvic pain in female Unspecified symptom associated with female genital organs Irritable bowel syndrome with constipation Irritable bowel syndrome Chronic constipation Unspecified constipation Uterine leiomyoma, unspecified location Abnormal uterine bleeding Unspecified disorder of menstruation and other abnormal bleeding from female genital tract documented in this encounter Care Teams Coffee Machine Technician Relationship Specialty Start Date End Date John Rosario DNP [address] [place] [id number] PCP - General Family Medicine 07/23/19 04/11/23 documented as of this encounter
--- OUTSIDE RECORDS SUMMARY | 2024-07-04 03:01 | XMS_ITS | Encounter Summary ---
Author Organization [facility] [place] [address] Care Team Providers Care Safety And Health Consultant Name Role Phone John Rosario FLORENTINO Primary Care Provider [phone] Encounter Details Date Type Department Care Team (Late st Contact Info) Description 07/22/2021 Telephone [place] [phone] Nara Colon Social History Tobacco Use Types Packs/Day Years Used Date Smoking Tobacco: Never Assessed Sex and Gender Information Value Date Recorded Sex Assigned at Not on file Gender Identity Not on file Sexual Orientation Not on file documented as of this encounter Miscellaneous Notes * Telephone Encounter - Nara Colon - 07/22/2021 11:04 AM EST Left message. Need to schedule follow-up with Dr. Gonzalez on sun at 11:30 in mid or late september documented in this encounter Plan of Treatment Upcoming Encounters Date Type Department Care Team (Late st Contact Info) Description 07/17/2024 1:00 PM EST Office Visit Obstetrics [place] [phone] Roma Lara MD [facility] [place]ET[place] [address] 10/27/2024 11:00 AM EST TH Visit (TeleHealth) [place] [address] Kim Gonzalez MD [facility] [place] [address] documented as of this encounter Visit Diagnoses Not on filedocumented in this encounter Care Teams Safety And Health Consultant Relationship Specialty Start Date End Date John Rosario DNP [address] [place] [address] PCP - General Family Medicine 07/23/19 04/11/23 documented as of this encounter
--- OUTSIDE RECORDS SUMMARY | 2024-07-04 03:01 | XMS_ITS | Encounter Summary ---
Author Organization [facility] [place] [address] Care Team Providers Care Crm Campaign Manager Name Role Phone John Rosario FLORENTINO Primary Care Provider [phone] Reason for Visit * Reason Onset Date Comments Medication Refill 09/25/2022 Encounter Details Date Type Department Care Team (Late st Contact Info) Description 09/25/2022 Refill [place] [phone] Kim Gonzalez MD [facility] [place] [address] Social History Tobacco Use Types Packs/Day Years [...] EST Office Visit Obstetrics [place] [phone] Roma Lara MD [facility] [address] OBSTETRICS [place] [address] 10/27/2024 11:00 AM EST TH Visit (TeleHealth) [place] [address] Kim Gonzalez MD [facility] [place] [address] documented as of this encounter Visit Diagnoses Not on filedocumented in this encounter Care Teams Crm Campaign Manager Relationship Specialty Start Date End Date John Rosario DNP [address] [place] [address] PCP - General Family Medicine 07/23/19 04/11/23 documented as of this encounter
--- OUTSIDE RECORDS SUMMARY | 2024-07-04 03:01 | XMS_ITS | Encounter Summary ---
Author Organization [facility] Address [facility] [id number] Care Team Providers Care Household Appliance Repairer Name Role Phone John Rosario [facility] Primary Care Provider [phone] Reason for Referral * Psychiatric (Routine) - Closed Specialty Diagnoses / Procedures Referred By Contac t Referred To Contact Gastroenterology Diagnoses Irritable bowel syndrome with constipation Kim Gonzalez MD [facility] [place] [address] Yumi Leong, PhD [facility] [place] [address] Referral ID Status Reason Start Date Expiration Date V isits Requested Visits Authorized [id number] Closed Consult, Test & Treat 09/26/2021 09/26/2022 1 1 Encounter Details Date Type Department Care Team (Latest Contact Info) Description 09/26/2021 11:30 AM EST TH Visit (TeleHealth) [place] [address] Kim Gonzalez MD [facility] [place] [address] Irritable bowel syndrome with constipation; Dyspepsia; Abdominal bloating Social History Tobacco Use Types Packs/Day Years Used Date Smoking Tobacco: Never Assessed Sex and Gender Information Value Date Recorded Sex Assigned at Not on file Gender Identity Not on file Sexual Orientation Not on file documented as of this encounter Patient Instructions * Patient Instructions* Kim Gonzalez MD - 09/26/2021 11:30 AM [...] is not effective, try 2 doses at once (6mg) every other day (off label dosing) ?? Dulcolax as needed ?? Recommend re-considering pelvic floor evaluation at [facility] [place] If worsening symptoms or no improvement, we may consider ?? Tegaserod, see: [email or web address] ?? Resuming motegrity, intermittent dosing ?? Trial of Senna or smooth move tea (instead of dulcolax) ?? Buspar (relaxes the stomach), low dose only 5mg prior to dinner ?? Domperidone 10 to 20mg prior to dinner meal (from Brittny) to help with gastric emptying Follow-up in: 3 months documented in this encounter Progress Notes * Kim Gonzalez MD - 09/26/2021 11:30 AM EST [facility] Section of Gastroenterology and Hepatology Follow-up Telemedicine Visit PCP: John Rosario APRN HPI 51 y.o. female following up for IBS-C and gastroparesis. Goals: improved QoL, get back to work Current regimen: Trulance, peppermint 1 BID, Miralax 2 capfuls/day, does home exercises and familiar with diaphragmatic breathing GI PROBLEM LIST 1. Gastroparesis [...] pain, trying anti-gas meds, drinking tea - tookuntil 4pm before she had relief, didn't pass [...] can release some gas and can have a movement, can pass a small amount of stool [...] constipated based on imaging. Started seeing a crm solution architect then. Does not recallever having hard stools [...] mouth daily., Disp: , Rfl: ??? rizatriptan (MAXALT-RESEARCH ANIMAL FACILITY SUPERVISOR) 10 mg Tablet, Rapid Dissolve, Take 10 [...] as evaluation seems limited. Consider slow transit. Givendegree of pain is on IBS-C spectrum. Discussed [...] is not effective, try 2 doses at once (6mg) every other day (off label dosing discussed) ?? Dulcolax as needed ?? Recommended pelvic floor testing (declined); PT omar reported descent of pelvic floor which islimited, recommend re-considering evaluation at [facility] [place] ?? Discussed diaphragmatic breathing again she is very familiar with this If worsening symptoms or no improvement, consider ?? Tegaserod, see: [email or web address] ?? Resuming motegrity, intermittent dosing ?? Trial [...] with above. The patient was located in [place] at the time of their telemedicine visit. Kim Gonzalez MD 09/26/21 Kim Gonzalez MD Applications Project Managermapping engineer Section of Gastroenterology and Hepatology [facility] [email or web address] ([email or web address]) documented in this encounter Plan of Treatment Upcoming Encounters Date Type Department Care Team (Late st Contact Info) Description 07/17/2024 1:00 PM EST Office Visit Obstetrics [place] [address] Roma Lara MD [facility] DR OBSTETRICS [place] [address] 10/27/2024 11:00 AM EST TH Visit (TeleHealth) [place] [phone] Kim Gonzalez MD [facility] [place] [address] Scheduled Referrals Name Type Priority Associated Diagnoses Orde r Schedule Amb Referral to GI Behavioral Health Outpatient Referral Routine Irritable bowel syndrome with constipation Ordered: 09/26/2021 documented as of this encounter Visit Diagnoses Diagnosis Irritable bowel syndrome with constipation Irritable bowel syndrome Dyspepsia Dyspepsia and other specified disorders of function of stomach Abdominal bloating Flatulence, eructation, and gas pain documented in this encounter Care Teams Household Appliance Repairer Relationship Specialty Start Date End Date John Rosario DNP [address] [place] [id number] PCP - General Family Medicine 07/23/19 04/11/23 documented as of this encounter
--- OUTSIDE RECORDS SUMMARY | 2024-07-04 03:01 | XMS_ITS | Encounter Summary ---
Author Organization [facility] [place] [address] Care Team Providers Care Coffee Supervisor Name Role Phone John Rosario FLORENTINO Primary Care Provider [phone] Encounter Details Date Type Department Care Team (Late st Contact Info) Description 07/18/2021 Telephone [place] [phone] Carmen Bennett CMA GASTROENTEROLOGY DEPT Social History [...] EST Office Visit Obstetrics [place] [phone] Roma Lara MD [facility] DR OBSTETRICS AND GYNECOLOGY [place], [place] [address] 10/27/2024 11:00 AM EST TH Visit (TeleHealth) [place] [address] Kim Gonzalez MD [facility] [place] [address] documented as of this encounter Visit Diagnoses Not on filedocumented in this encounter Care Teams Coffee Supervisor Relationship Specialty Start Date End Date John Rosario DNP [address] [place] [id number] PCP - General Family Medicine 07/23/19 04/11/23 documented as of this encounter
--- OUTSIDE RECORDS SUMMARY | 2024-07-04 03:01 | XMS_ITS | Encounter Summary ---
Author Organization [facility] [place] [address] Care Team Providers Care Field Seismologist Name Role Phone John Rosario DNP Primary Care Provider [phone] Encounter Details Date Type Department Care Team (Late st Contact Info) Description 09/12/2019 Ancillary Procedure Radiology Library at [facility] [place] [phone] John Rosario DNP [address] [place], [place] [address] Social History Tobacco Use Types Packs/Day Years [...] EST Office Visit Obstetrics [place] [phone] Roma Lara MD [facility] OBSTETRICS [place] [address] 10/27/2024 11:00 AM EST TH Visit (TeleHealth) [place] [phone] Kim Gonzalez MD [facility] DR GASTROENTEROLOGY [place], [place] [phone] documented as of this encounter Procedures Procedure Name Priority Date/Time Associated Diagnosis Comments FILM LIBRARY STORAGE ONLY DX ABDOMEN Routine 09/12/2019 12:00 AM EST documented in this encounter Results * Film Library- Storage Only DX Abdomen (09/12/2019 12:00 AM EST) Narrative MALORIE - 02/07/2022 10:20 AM EDT This exam is auto-finalizing. It's purpose is for storage only. John Rosario DNP IMG FILM LIBRARY OR DERABLES Performing Organization Address City/State/[facility] Co de Phone Number [place], [place] documented in this encounter Visit Diagnoses Not on filedocumented in this encounter Care Teams Field Seismologist Relationship Specialty Start Date End Date John Rosario DNP [address] [place] [address] PCP - General Family Medicine 07/23/19 04/11/23 documented as of this encounter
--- OUTSIDE RECORDS SUMMARY | 2024-07-04 03:01 | XMS_ITS | Encounter Summary ---
Author Organization [facility] [place] [address] Care Team Providers Care Editor City Name Role Phone Unavailable Primary Care Provider Unavailabl e Encounter Details Date Type Department Care Team (Late st Contact Info) Description 09/25/2017 Ancillary Procedure Radiology Library at [facility] [place] [address] Dea Kc, BOOKBINDER APPRENTICE [address] [place], [place] [id number] Social History Tobacco Use Types Packs/Day Years [...] EST Office Visit Obstetrics [place] [address] Roma Lara MD [facility] DR OBSTETRICS [place] [address] 10/27/2024 11:00 AM EST TH Visit (TeleHealth) [place] [address] Kim Gonzalez MD [facility] [place] [address] documented as of this encounter Visit Diagnoses Not on filedocumented in this encounter
--- OUTSIDE RECORDS SUMMARY | 2024-07-04 03:01 | XMS_ITS | Encounter Summary ---
Author Organization Replaced By [facility] Address [facility] [place] [address] Care Team Providers Care Slash Trimmer Name Role Phone John Rosario FLORENTINO Primary Care Provider [phone] Reason for Referral * Consultation (Routine) - Closed Specialty Diagnoses / Procedures Referred By Contac t Referred To Contact Obstetrics and Gynecology Diagnoses Dyspareunia, female Nicole Moses MD [facility] [address] Roma Lara MD [facility] DR OBSTETRICS [place] [address] Referral ID Status Reason Start Date Expiration Date V isits Requested Visits Authorized [id number] Closed Consult, Test & Treat 08/14/2022 08/14/2023 1 1 Encounter Details Date Type Department Care Team (Late st Contact Info) Description 08/14/2022 Orders Only Obstetrics [place] [address] Nicole Moses MD [facility] [address] Nabothian cyst; Dyspareunia, female Social History Tobacco Use Types Packs/Day [...] EST Office Visit Obstetrics [place] [address] Roma Lara MD [facility] DR OBSTETRICS [place] [address] 10/27/2024 11:00 AM EST TH Visit (TeleHealth) [place] [address] Kim Gonzalez MD [facility] [place] [address] Scheduled Referrals Name Type Priority Associated Diagnoses Orde r Schedule Referral to Ob-Fish And Wildlife Scientific Aid Outpatient Referral Routine Dyspareunia, female Ordered: 08/14/2022 documented as of this encounter Visit Diagnoses Diagnosis Nabothian cyst Cervicitis and endocervicitis Dyspareunia, female Dyspareunia documented in this encounter Care Teams Slash Trimmer Relationship Specialty Start Date End Date John Rosario DNP [address] [place] [address] PCP - General Family Medicine 07/23/19 04/11/23 documented as of this encounter
--- OUTSIDE RECORDS SUMMARY | 2024-07-04 03:01 | XMS_ITS | Encounter Summary ---
Author Organization [facility] [place] [address] Care Team Providers Care Dress Designer Name Role Phone John Rosario DNP Primary Care Provider [phone] Encounter Details Date Type Department Care Team (Late st Contact Info) Description 07/10/2022 Orders Only [place] [address] Kim Gonzalez MD [facility] [place] [address] Irritable bowel syndrome with constipation Social History [...] EST Office Visit Obstetrics [place] [address] Roma Lara MD [facility] OBSTETRICS [place] [address] 10/27/2024 11:00 AM EST TH Visit (TeleHealth) [place] [phone] Kim Gonzalez MD [facility] [place] [address] documented as of this encounter Visit Diagnoses Diagnosis Irritable bowel syndrome with constipation Irritable bowel syndrome documented in this encounter Care Teams Dress Designer Relationship Specialty Start Date End Date John Rosario DNP [address] [place] [address] [place] [address] PCP - General Family Medicine 07/23/19 04/11/23 documented as of this encounter
--- OUTSIDE RECORDS SUMMARY | 2024-07-04 03:01 | XMS_ITS | Encounter Summary ---
Author Organization [facility] [place] [address] Care Team Providers Care Packer Inspector Name Role Phone John Rosario DNP Primary Care Provider [phone] Encounter Details Date Type Department Care Team (Late st Contact Info) Description 07/20/2021 Ancillary Procedure Radiology Library at [facility] [place] [address] Dea Kc, ERICK [facility] [address] [place], [place] [id number] Social History Tobacco Use Types Packs/Day Years [...] EST Office Visit Obstetrics [place] [phone] Roma Lara MD [facility] [place] [facility] [place] [address] 10/27/2024 11:00 AM EST TH Visit (TeleHealth) [place] [phone] Kim Gonzalez MD [facility] [place] [address] GASTROENTEROLOGY [place], [place] [id number] documented as of this encounter Procedures Procedure Name Priority Date/Time Associated Diagnosis Comments FILM LIBRARY STORAGE ONLY MAMMO Routine 07/20/2021 12:00 AM EST documented in this encounter Results * Film Library- Storage Only Mammo (07/20/2021 12:00 AM EST) Narrative MALORIE - 07/11/2023 12:49 PM EST This exam is auto-finalizing. It's purpose is for storage only. Dea Kc APRN IMG FILM LIBRARY ORD ERABLES [place], [place] documented in this encounter Visit Diagnoses Not on filedocumented in this encounter Care Teams Packer Inspector Relationship Specialty Start Date End Date oJhn Rosario DNP [address] [place] [address] PCP - General Family Medicine 07/23/19 04/11/23 documented as of this encounter
--- OUTSIDE RECORDS SUMMARY | 2024-07-04 03:01 | XMS_ITS | Encounter Summary ---
Author Organization [facility] [place] [address] Care Team Providers Care Senior Technical Architect Name Role Phone John Rosario DNP Primary Care Provider [phone] Encounter Details Date Type Department Care Team (Late st Contact Info) Description 10/06/2019 Ancillary Procedure Radiology Library [place] [phone] John Rosario DNP [address] [place], [place] [address] Social History Tobacco Use Types Packs/Day Years [...] EST Office Visit Obstetrics [place] [address] Roma Lara MD [facility] OBSTETRICS [place] [address] 10/27/2024 11:00 AM EST TH Visit (TeleHealth) [place] [address] Kim Gonzalez MD [facility] DR GASTROENTEROLOGY [place], [place] [id number] documented as of this encounter Procedures Procedure Name Priority Date/Time Associated Diagnosis Comments FILM LIBRARY STORAGE ONLY ULTRASOUND STUDY Routine 10/06/2019 12:00 AM EST documented in this encounter Results * Film Library- Storage Only Ultrasound Study (10/06/2019 12:00 AM EST) Narrative MALORIE - 02/07/2022 10:17 AM EDT This exam is auto-finalizing. It's purpose is for storage only. John Rosario DNP IMG FILM LIBRARY OR DERABLES Performing Organization Address City/State/[facility] Co de Phone Number [place], [place] documented in this encounter Visit Diagnoses Not on filedocumented in this encounter Care Teams Senior Technical Architect Relationship Specialty Start Date End Date John Rosario DNP [address] [place] [address] PCP - General Family Medicine 07/23/19 04/11/23 documented as of this encounter
--- OUTSIDE RECORDS SUMMARY | 2024-07-04 03:01 | XMS_ITS | Encounter Summary ---
[place] [address] Care Team Providers Care Draw Operator Name Role Phone John Rosario FLORENTINO Primary Care Provider [phone] Reason for Visit * Reason Onset Date Comments Prior Authorization 07/14/2022 Encounter Details Date Type Department Care Team (Late st Contact Info) Description 07/14/2022 Telephone [place] [address] Macarena Fenton CCMA Prior Authorization Social History [...] Telephone Encounter - Macarena Fenton LNA - 07/14/2022 10:26 AM EST Medication Prior Authorization 4L Gastroenterology / [place] [address] Subscriber Insurance: [place] Medicaid Phone: Fax: Physician: Kim Gonzalez Return Pharmacy: [facility] Fax: Medication Requested: Motegrity Strength: 2mg Frequency: Daily Disp.: 30 Refills: 5 Currently taking: Diagnosis for this medication: IBS-C ICD-10 code: K58.1 Prior medications trialed in this patient: Miralax, Dulcolax, Milk of Magnesia, Linzess, Amitiza, Trulance Medication: Outcome/Adverse Reactions: Treatment Failure Decision: Approved. A limited 3 months approval is authorized. Continued approvals are contingent upon a positive response to therapy documented in the clinical notes. Please provide a copy of clinical notes with next PA. Tracking number/Case number/Reference number: [id number] Effective date: 07/14/2022 to 10/14/2022 Start: End: documented in this encounter Plan of Treatment Upcoming Encounters Date Type Department Care Team (Late st Contact Info) Description 07/17/2024 1:00 PM EST Office Visit Obstetrics [place] [address] Roma Lara MD [facility] DR OBSTETRICS [place] [address] 10/27/2024 11:00 AM EST TH Visit (TeleHealth) [place] [address] Kim Gonzalez MD [facility] [place] [address] documented as of this encounter Visit Diagnoses Not on filedocumented in this encounter Care Teams Draw Operator Relationship Specialty Start Date End Date John Rosario DNP [address] [place] [address] [place] [address] PCP - General Family Medicine 07/23/19 04/11/23 documented as of this encounter
--- OUTSIDE RECORDS SUMMARY | 2024-07-04 03:01 | XMS_ITS | Encounter Summary ---
Author Organization [facility] [place] [address] Care Team Providers Care Bun Panner Name Role Phone John Rosario FLORENTINO Primary Care Provider [phone] Encounter Details Date Type Department Care Team (Late st Contact Info) Description 06/15/2021 Tele[place] [address] Nara Colon Social History Tobacco Use Types Packs/Day Years Used Date Smoking Tobacco: Never Assessed Sex and Gender Information Value Date Recorded Sex Assigned at Not on file Gender Identity Not on file Sexual Orientation Not on file documented as of this encounter Miscellaneous Notes * Telephone Encounter - Nara Colon - 06/15/2021 4:45 PM EDT Left Message. Need to schedule appointment with Dr. Gonzalez Next available documented in this encounter Plan of Treatment Upcoming Encounters Date Type Department Care Team (Late st Contact Info) Description 07/17/2024 1:00 PM EST Office Visit Obstetrics [place] [address] Roma Lara MD [facility] [place] [address] 10/27/2024 11:00 AM EST TH Visit (TeleHealth) [place] [address] Kim Gonzalez MD [facility] [place] [address] documented as of this encounter Visit Diagnoses Not on filedocumented in this encounter Care Teams Bun Panner Relationship Specialty Start Date End Date John Rosario DNP [address] [place] [address] PCP - General Family Medicine 07/23/19 04/11/23 documented as of this encounter
--- OUTSIDE RECORDS SUMMARY | 2024-07-04 03:01 | XMS_ITS | Encounter Summary ---
Author Organization Formerly [facility] Address [facility] [place] [address] Care Team Providers Care Clinical Specialist Name Role Phone John Rosario FLORENTINO Primary Care Provider [phone] Reason for Visit * Consultation (Routine) - Closed Specialty Diagnoses / Procedures Referred By Contac t Referred To Contact Obstetrics and Gynecology Diagnoses Dyspareunia, female Nicole Moses MD [facility] [place] [address] Roma Lara MD [facility] OBSTETRICS [place] [address] Referral ID Status Reason Start Date Expiration Date V isits Requested Visits Authorized [id number] Closed Consult, Test & Treat 08/14/2022 08/14/2023 1 1 Encounter Details Date Type Department Care Team (Latest Contact Info) Description 11/13/2022 8:20 AM EDT TH Visit (TeleHealth) Obstetrics [place] [address] Roma Lara MD [facility] OBSTETRICS [place] [address] Dyspareunia, female; Vaginal pain; Nabothian cyst Social History Tobacco Use Types Packs/Day Years [...] * Patient Instructions* Roma Lara MD - 11/13/2022 8:20 AM EDT LEEP procedure code: [id number] documented in this encounter Progress Notes * Constantine Juarez LNA - 11/13/2022 8:20 AM EDT __X__ Patient not reached; left voicemail message with callback number. ____Patient reached and the following information was reviewed/obtained per protocol. ___Confirmed patient name and date of ___Confirmed tele med appt (Virtual visit) is downloaded and functioning ___Confirmed location of patient- TeleVisit is taking place in [place]__ If not on myDH, working on signing up for my DH Confirmed has completed any pre-visit questionnaires If has not received required previsit questionnaires, send via myDH ___Reviewed medications, allergies, pharmacy, pain/depression, education ___Documented height/weight/LMP Other information or concerns: * Nazanin Mitchell LNA - 11/13/2022 8:20 AM EDT ___x_ Patient not reached Returned call. Left message 11/07 ____Patient reached and the following information was reviewed/obtained per protocol. ___Confirmed patient name and date of ___Confirmed tele med appt (Virtual visit) is downloaded and functioning ___Confirmed location of patient- TeleVisit is taking place in [place]__ If not on myDH, working on signing up for my DH Confirmed has completed any pre-visit questionnaires If has not received required previsit questionnaires, send via myDH ___Reviewed medications, allergies, pharmacy, pain/depression, education ___Documented height/weight/LMP Other information or concerns: PERICO Carmichael Roma Nation MD - 11/13/2022 8:20 AM EDT YARD ATTENDANT Problem Visit Reason for Visit: Yumi is a 52 y.o. benja menopausal female who presents for a new patient visit with the following complaints/concerns: cervical pain, dyspareunia and nabothian cysts History of Present Illness: Saw Dr. Moses with urogyn in 06/2022: #Nabothian cysts She also has cysts on the cervix with associated distinctive pain with intercourse and with palpation of cysts during exam, and was told that the only way to address that is through hysterectomy. Gynecologic History: LMP: No LMP recorded. On SOLO for many years, hasn't had a period in many years Pregnancies: x1 YARD ATTENDANT diagnoses: None YARD ATTENDANT surgeries: None Sexually active with partner. Contraception (premenopause): COCs for many years. Last pap last year. Results: normal per patient History of abnormal paps: One 25 years ago, colposcopy Patient Active Problem List Diagnosis Date Noted [...] Laterality Date ??? APPENDECTOMY ??? SINUS SURGERY No family history on file. OB History 1 Para 1 Term AB Living 1 SAB IAB Ectopic Multiple Live Births # Outc Date GA Lbr Rich/2nd Wgt Sex Del Anes PTL Lv 1 Para Current Outpatient Medications Medication Sig Dispense Refill ??? polyethylene glycoL (Miralax) 17 gram/dose Powder TAKE 17GM BY MOUTH 2 TIMES DAILY 238 g 1 ??? hyoscyamine SL (Levsin SL) 0.125 mg Tablet, Sublingual Take 1 tablet by mouth every 4 hours as needed for Cramping. Max 6 pills per day. 30 tablet 3 ??? prucalopride (Motegrity) 2 mg Tablet Take 1 tablet by mouth daily. 30 tablet 5 ??? plecanatide (Trulance) 3 mg Tablet Take 1 tablet by mouth daily. 90 tablet 3 ??? mirabegron (Myrbetriq) 50 mg Tablet Sustained Release 24 hr Take 50 mg by mouth daily. ??? rizatriptan (MAXALT-FIELD SAMPLING TECHNICIAN) 10 mg Tablet, Rapid Dissolve Take 10 [...] Fluoxetine ??? Gabapentin ??? Glatiramer (Copolymer 1) ROS: Otherwise negative except as specified in HPI. Physical Exam- Telehealth There were no vitals filed for this visit. General: NAD, comfortable, pleasant Lungs: Unlabored breathing Neuro: grossly intact Assessment/Plan: Yumi is a 52 y.o. benja menopausal female who presents for a new patient visit with the following complaints/concerns: cervical pain, dyspareunia and nabothian cysts - Reviewed LEEP procedure for management of [...] can schedule either in office vs OR 1. Dyspareunia, female 2. Vaginal pain 3. Nabothian cyst Note to patient: The Century Cures Act makes medical notes like this available to patients in the interest of transparency. However, be advised this is a medical document. It is intended as [id number] communication. It is written in medical language and may contain abbreviations or verbiage that are unfamiliar. Total time spent day of service on chart review, disease discussion and therapeutic counseling, as well as, documentation and coordination of care: 20 min Roma Lara MD 11/13/2022 8:55 AM documented in this encounter Plan of Treatment Upcoming Encounters Date Type Department Care Team (Late st Contact Info) Description 07/17/2024 1:00 PM EST Office Visit Obstetrics [place] [address] Roma Lara MD [facility] DR OBSTETRICS [place] [address] 10/27/2024 11:00 AM EST TH Visit (TeleHealth) [place] [address] Kim Gonzalez MD [facility] [place] [address] Scheduled Referrals Name Type Priority Associated Diagnoses Orde r Schedule Referral to Ob-Reinsurance Claim Analyst Outpatient Referral Routine Dyspareunia, female Ordered: 08/14/2022 documented as of this encounter Visit Diagnoses Diagnosis Dyspareunia, female Dyspareunia Vaginal pain Unspecified symptom associated with female genital organs Nabothian cyst Cervicitis and endocervicitis documented in this encounter Care Teams Clinical Specialist Relationship Specialty Start Date End Date John Rosario DNP [address] [place] [address] PCP - General Family Medicine 07/23/19 04/11/23 documented as of this encounter
--- OUTSIDE RECORDS SUMMARY | 2024-07-04 03:01 | XMS_ITS | Encounter Summary ---
[place] [address] Care Team Providers Care News Anchor Name Role Phone John Rosario FLORENTINO Primary Care Provider [phone] Encounter Details Date Type Department Care Team (Late st Contact Info) Description 09/27/2021 Telephone [place] [address] Cris Younger Social History Tobacco Use Types Packs/Day Years Used Date Smoking Tobacco: Never Assessed Sex and Gender Information Value Date Recorded Sex Assigned at Not on file Gender Identity Not on file Sexual Orientation Not on file documented as of this encounter Miscellaneous Notes * Telephone Encounter - Cris Younger - 09/28/2021 2:10 PM EST Patient declined scheduling into [facility] when contacted this afternoon stating she is just not sure about it. The patient's name has been added to the wait list for the next pain group. * Telephone Encounter - Cris Younger - 09/27/2021 3:56 PM EST Left message for patient to contact the office for scheduling. Dr Gonzalez has referred the patient to Groups. documented in this encounter Plan of Treatment Upcoming Encounters Date Type Department Care Team (Late st Contact Info) Description 07/17/2024 1:00 PM EST Office Visit Obstetrics [place] [address] Roma Lara MD [facility] OBSTETRICS [place] [address] 10/27/2024 11:00 AM EST TH Visit (TeleHealth) [place] [address] Kim Gonzalez MD [facility] [place] [address] documented as of this encounter Visit Diagnoses Not on filedocumented in this encounter Care Teams News Anchor Relationship Specialty Start Date End Date John Rosario DNP [address] [address] PCP - General Family Medicine 07/23/19 04/11/23 documented as of this encounter
--- OUTSIDE RECORDS SUMMARY | 2024-07-04 03:01 | XMS_ITS | Encounter Summary ---
Author Organization [facility] [place] [address] Care Team Providers Care Manufacturing Sr Engineer Name Role Phone John Rosario FLORENTINO Primary Care Provider [phone] Reason for Visit * Reason Onset Date Comments Medication Refill 10/27/2021 Encounter Details Date Type Department Care Team (Late st Contact Info) Description 10/27/2021 [place] [address] Kim Gonzalez MD [facility] [place] [address] Irritable bowel syndrome with constipation Social History [...] EST Office Visit Obstetrics [place] [address] Roma Lara MD [facility] OBSTETRICS [place] [address] 10/27/2024 11:00 AM EST TH Visit (TeleHealth) [place] [address] Kim Gonzalez MD [facility] [place] [address] documented as of this encounter Visit Diagnoses Diagnosis Irritable bowel syndrome with constipation Irritable bowel syndrome documented in this encounter Care Teams Manufacturing Sr Engineer Relationship Specialty Start Date End Date John Rosario DNP [address] [facility] [address] [place] [address] PCP - General Family Medicine 07/23/19 04/11/23 documented as of this encounter
--- OUTSIDE RECORDS SUMMARY | 2024-07-04 03:01 | XMS_ITS | Encounter Summary ---
Author Organization [facility] [place] [address] Care Team Providers Care Shaft Repairer Name Role Phone John Rosario DNP Primary Care Provider [phone] Encounter Details Date Type Department Care Team (Late st Contact Info) Description 03/22/2021 Telephone [place] [address] Dinh Ochoa Social History Tobacco Use Types Packs/Day Years Used Date Smoking Tobacco: Never Assessed Sex and Gender Information Value Date Recorded Sex Assigned at Not on file Gender Identity Not on file Sexual Orientation Not on file documented as of this encounter Miscellaneous Notes * Telephone Encounter - Dinh Ochoa - 03/22/2021 3:40 PM EDT Inbound/Outbound: Outbound Spoke to Patient/Left Message: Left message Notes: Outbound call to patient to schedule motility lab testing from referral. Left message askingfor callback to schedule. Return calls can be handled by: [facility] Community Fundraiser documented in this encounter Plan of Treatment Upcoming Encounters Date Type Department Care Team (Late st Contact Info) Description 07/17/2024 1:00 PM EST Office Visit Obstetrics [place] [address] Roma Lara MD [facility] DR OBSTETRICS [place] [address] 10/27/2024 11:00 AM EST TH Visit (TeleHealth) [place] [address] Kim Gonzalez MD [facility] [place] [address] documented as of this encounter Visit Diagnoses Not on filedocumented in this encounter Care Teams Shaft Repairer Relationship Specialty Start Date End Date John Roasrio DNP [address] [place] [address] PCP - General Family Medicine 07/23/19 04/11/23 documented as of this encounter
--- OUTSIDE RECORDS SUMMARY | 2024-07-04 03:01 | XMS_ITS | Encounter Summary ---
Author Organization [facility] [place] [address] Care Team Providers Care Telephone Order Clerk Room Service Name Role Phone John Rosario DNP Primary Care Provider [phone] Encounter Details Date Type Department Care Team (Latest Contact Info) Description 11/13/2022 10:00 AM EDT TH Visit (TeleHealth) [place] [phone] Kim Gonzalez MD [facility] [place] [address] Irritable bowel syndrome with constipation; Chronic pain syndrome; Multiple sclerosis Social History Tobacco Use Types Packs/Day Years [...] * Patient Instructions* Kim Gonzalez MD - 11/13/2022 10:00 AM EDT Recommendations Lyrica trial 25mg nightly, increase to twice a day after 7 days. Can titrate up gradually. Startingslow secondary to fatigue. Continue once daily Trulance and Motegrity as needed Miralax regularly, adjust as needed Dulcolax as needed Continue hyoscyamine at night as this helps facilitate the passage of gas Continue peppermint NOW brand 1 twice a day Continue physical therapy for urinary symptoms/pelvic pain Potential next option: IBSRela 6 mo follow-up documented in this encounter Progress Notes * Kim Gonzalez MD - 11/13/2022 10:00 AM EDT [facility] Section of Gastroenterology and Hepatology Follow-up [...] home exercises and familiar with diaphragmatic breathing ?? As of November 2022: Using trulance daily and motegrity PRN (had it flipped previously and this seemed less desirable) 3. Abdominal bloating & distention - SIBO? [...] 6. GERD controlled on PPI Interval follow-up Wasn't feeling good taking motegrity daily. A lot of severe constant bloating and fatigue. Switchedto Trulance daily and motegrity PRN at night. Also coincided with migraine medication. Just feels crappy daily. Constant bloating, regardless of BMs. Gas. So uncomfortable. Constant nausea. Full after 2 bites even though she hasn't eaten. Maybe a little less bloating on this regimen but not much. On this for 1 month. Daily BMs, variable in amounts - dulcolax PRN if needed - not always effective A few episodes of severe pain, hyoscyamine tends to help Doing PT for the bladder here; severe pelvic pain. Hormones affect stomach Review of systems: 14-point review of systems [...] constipated based on imaging. Started seeing a senior power scheduler then. Does not recallever having hard stools [...] Crohn's. Hormonal fluctuations PMHx ?? Migraine ?? Chronic fatigue ?? MS not on meds ?? Uveitis ?? Ulcer, gastric - 2/2 to NSAIDs ?? Allergic rhinitis ?? Carpal tunnel pain ?? Nasal polyp, removed ?? Insomnia ?? [...] good and doesn't want to try again ?? Peppermint capsules - helpful ?? Amitriptyline [...] Group - went to 1 session only ?? Hyoscyamine - helps her release gas, does make her tired, takes at night Patient Active Problem List Diagnosis Code ??? Dyspepsia R10.13 ??? Chronic constipation K59.09 ??? Adjustment disorder F43.20 ??? Irritable bowel syndrome with constipation K58.1 Current Outpatient Medications: ??? polyethylene glycoL (Miralax) 17 gram/dose Powder, TAKE 17GM BY MOUTH 2 TIMES DAILY, Disp: 238 g, Rfl: 1 ??? hyoscyamine SL (Levsin SL) 0.125 mg Tablet, Sublingual, Take 1 tablet by mouth every 4 hours asneeded for Cramping. Max 6 pills per day., Disp: 30 tablet, Rfl: 3 ??? prucalopride (Motegrity) 2 mg Tablet, Take 1 tablet by mouth daily., Disp: 30 tablet, Rfl: 5 ??? plecanatide (Trulance) 3 mg Tablet, Take 1 tablet by mouth daily., Disp: 90 tablet, Rfl: 3 ??? mirabegron (Myrbetriq) 50 mg Tablet Sustained Release 24 hr, Take 50 mg by mouth daily., Disp: , Rfl: ??? rizatriptan (MAXALT-UTILITY HAND) 10 mg Tablet, Rapid Dissolve, Take 10 [...] Fluoxetine ??? Gabapentin ??? Glatiramer (Copolymer 1) Past Medical History: Diagnosis Date ??? Abnormal uterine bleeding (AUB) ??? Anxiety ??? Dyspareunia due to medical condition in female ??? Fibroid uterus ??? H/O gastric ulcer ??? Migraine w & wo aura Past Surgical History: Procedure Laterality Date ??? APPENDECTOMY ??? SINUS SURGERY Social History Socioeconomic History ??? Marital status: Spouse name: Not on file ??? Number of children: Not on file ??? Years of education: Not on file ??? Highest education level: Not on file Occupational History ??? Not on file Tobacco Use ??? Smoking status: Former ??? Smokeless tobacco: Never Vaping Use ??? Vaping Use: Never used [...] bowels (though the latter is also inconsistent). She has been concerned about worsening fatigue from medications. We discussed this. I think Lyrica is our best option to try this point. She does have other chronic pain. If we start slowly with Lyrica and are able to achieve some benefit in pain reduction, this may actually lessen her fatigue over time. We also discussed IBSRela but will hold off for now and wait to see some real world experience with this unless bowel symptoms are worsening. Recommendations ?? Lyrica trial 25mg nightly, increase to twice a day after 7 days. Can titrate up gradually. Starting slow secondary to fatigue. If not covered, use [employer]. ?? Continue once daily Trulance and Motegrity as needed ?? Miralax regularly, adjust as needed ?? Dulcolax as needed ?? Continue hyoscyamine at night as this helps facilitate the passage of gas ?? Continue peppermint NOW brand 1 twice a day ?? Continue physical therapy for urinary symptoms/pelvic pain ?? Potential next option: IBSRela Other options diagnostic/therapeutic for us to consider ?? Buspar (relaxes the stomach), low dose only 5mg prior to dinner to help you eat more, not previously tried for anxiety ?? Domperidone 10 to 20mg prior to dinner meal (from [email or web address]) to help with gastric emptying ?? Mirtazipine;' [...] floor which islimited, recommend re-considering [place] [facility] [place]-up in: 6 months The patient was located in [place] at the time of their visit. TIME SPENT WITH PATIENT Time spent face to face with patient on the day of the encounter: 32 minutes The risks, benefits and alternatives were discussed with the patient who understands and agrees with above. Kim Gonzalez MD 11/13/22 Kim Gonzalez MD [employer] Section of Gastroenterology and Hepatology [facility] [email or web address] ([email or web address]) documented in this encounter Plan of Treatment Upcoming Encounters Date Type Department Care Team (Late st Contact Info) Description 07/17/2024 1:00 PM EST Office Visit Obstetrics [place] [address] Roma Lara MD [facility] DR OBSTETRICS [place] [address] 10/27/2024 11:00 AM EST TH Visit (TeleHealth) [place] [phone] Kim Gonzalez MD [facility] [place] [address] documented as of this encounter Visit Diagnoses Diagnosis Irritable bowel syndrome with constipation Irritable bowel syndrome Chronic pain syndrome Multiple sclerosis documented in this encounter Care Teams Telephone Order Clerk Room Service Relationship Specialty Start Date End Date John Rosario DNP [address] [place] [id number] PCP - General Family Medicine 07/23/19 04/11/23 documented as of this encounter
--- OUTSIDE RECORDS SUMMARY | 2024-07-04 03:01 | XMS_ITS | Encounter Summary ---
Author Organization [facility] [place] [address] Care Team Providers Care Turpentine Distiller Name Role Phone John Rosario DNP Primary Care Provider [phone] Encounter Details Date Type Department Care Team (Late st Contact Info) Description 12/07/2020 Telephone [place] [address] Brody Key RN Social History Tobacco Use Types Packs/Day Years Used Date Smoking Tobacco: Never Assessed Sex and Gender Information Value Date Recorded Sex Assigned at Not on file Gender Identity Not on file Sexual Orientation Not on file documented as of this encounter Miscellaneous Notes * Telephone Encounter - Brody Key RN - [...] EST Office Visit Obstetrics [place] [address] Roma Lara MD [facility] [place] [address] 10/27/2024 11:00 AM EST TH Visit (TeleHealth) [place] [address] Kim Gonzalez MD [facility] [place] [address] documented as of this encounter Visit Diagnoses Not on filedocumented in this encounter Care Teams Turpentine Distiller Relationship Specialty Start Date End Date John Rosario DNP [address] [place] [id number] PCP - General Family Medicine 07/23/19 04/11/23 documented as of this encounter
[2024-07-04 14:06] LABS: ESR < 1 mm/hr (0-30)
[2024-07-04 14:28] LABS: Alkaline Phosphatase 68 U/L (46-116); Anion Gap 8.1 mmol/L (3-11); BUN 22 mg/dL (7-18); CO2 29.9 mmol/L (21.0-32.0); CREATININE 0.9 mg/dL (0.55-1.02); Calcium 9.6 mg/dL (8.5-10.1); Chloride 105 mmol/L (98-107); D-Dimer 164 ng/mlFEU (<500); Estimated GFR 76.92 (mL/min/1.73m2); Glucose 90 mg/dL (74-106); Magnesium 2.3 mg/dL (1.8-2.4); PHOSPHORUS 3.4 mg/dL (2.6-4.7); Potassium 4.5 mmol/L (3.5-5.1); Sodium 143 mmol/L (136-145)
[2024-07-04 14:34] LABS: C-Reactive Protein < 0.50 mg/dL (<or=0.5)
== END 2024-07-04 02:53 | disposition home or self-care (01) ==
PROVIDERS: PCP Nurse Practitioner Family; Visit Provider Student in an Organized Health Care Education/Training Program
DX: R25.2 Cramp and spasm (principal)
CPT/HCPCS: 36415; 80048; 85652; 83735; 84075; 84100; 85379; 86140

== ENCOUNTER 2024-08-05 09:42 | Outpatient (CLI) | payer OTHER, SELFPAY ==
[2024-08-05 09:46] VITALS: BP 119/69; PULSE 55; RESP 20; TEMP 36.7; O2SAT 99
--- NOTE | 2024-08-05 10:17 | PDOC.PAIN ---
Date of service: 08/05/24 Time of Service: 10:37 Pain Managment Procedure Note Procedure Note Procedure Note: Diagnostic Lumbar Facet Joint Injection ? Location: Bilateral Lumbar Facet Joints ? Levels: L5-S1 ? Pre-procedure Diagnosis: M47.817 Spondylosis without myelopathy or radiculopathy, lumbosacral region M47.816 Spondylosis without myelopathy or radiculopathy, lumbar region ? Post-procedure Diagnosis:? The same as above ? Sedation:? None ? Estimated blood loss:? less than 2 cc ? Surgeon: Efrem Leo MD COMMENT: Pain 7 /10 .Decision was made to proceed with intra-articular facet injections for the possibility of not having to do medial branch blocks and radiofrequency ablation if patient get long lasting relief (> 3 months). ? Procedure Detail:? The procedure and potential risks were explained to the patient and informed written consent was obtained. The patient was escorted to the procedure room and placed in the prone position. Pillows were utilized for proper positioning and comfort.? Time out was performed in the procedure room with nursing staff confirming the patient's identity, procedure to be performed, allergies, and any blood thinning or anti-platelet medications.? Sterile technique was maintained throughout the procedure.? The patient's lumbosacral area was prepped with chlorhexidine and draped in a sterile fashion. Lidocaine 1% was used to anesthetize the skin. An oblique fluoroscopic view was obtained, with visualization of the facet joint.? A 22gauge, Quincke needle was gently advanced through the facet capsule.? Needle placement was confirmed with fluoroscopy in AP, oblique, and lateral views by injecting 0.25cc of contrast.? 20 mg of Depomedrol and 0.5ml of 0.5% bupivacaine was injected into the capsule at L5-S1 Bilateral. The patient tolerated the procedure well and was transported to recovery area for observation and discharge instructions. Permanent images saved and recorded. Plan:? Follow up prn COMMENT:Pain went from 7/10 to 5/10. Pain? 20 % better. Will use this as both diagnostic and potentially therapeutic.? With short-term relief from the level that it was not long-lasting then we will proceed with for LMBB #2 and possible radiofrequency ablation. Patient had SI joint injections in the past at [facility] without any relief. Will reevaluate if not getting better.
[2024-08-05 10:18] VITALS: O2SAT 100
[2024-08-05 10:20] VITALS: O2SAT 100
[2024-08-05 10:30] VITALS: O2SAT 100
[2024-08-05] MEDS: Omnipaque 240 MG/ML 50 ML BTL IJ (10:40)
--- NOTE | 2024-08-05 10:40 | DI.RAD_ITS ---
Exam(s) XR PAIN CLINIC LUMBAR SP 2V EXAM: XR PAIN CLINIC LUMBAR SP 2V CLINICAL HISTORY: DX: Lumbar Spondylosis TECHNIQUE: 2D and realtime digital imaging was performed. CONTRAST MATERIAL: Refer to procedure report. COMPARISON: No exams were available for comparison FINDINGS: Fluoroscopy was provided for Dr. Leo during the performance of a bilateral lumbar facet joint in [facility]. Please refer to the procedure report for complete details. Ka,r=7.41 mGy IMPRESSION: RADIATION DOSE DELIVERED: 0.0 0.0 0
[2024-08-05] MEDS: Bupivacaine 0.5% Pres-Free 10 ML VIAL IJ (10:41)
[2024-08-05] MEDS: Nerve Block Tray 1 EACH MC (10:42)
[2024-08-05] MEDS: methylPREDNISolone ACETATE 80 MG/ML VIAL IJ (10:42)
== END 2024-08-05 09:43 | disposition home or self-care (01) ==
LOC: PC 09:42
PROVIDERS: PCP Nurse Practitioner Family; Visit Provider Anesthesiology Pain Medicine
DX: M47.817 Spondylosis without myelopathy or radiculopathy, lumbosacral region (principal); M47.816 Spondylosis without myelopathy or radiculopathy, lumbar region
CPT/HCPCS: 00123; 64493; 72100; J0665; J1010; Q9967

== ENCOUNTER 2024-12-17 02:15 | Outpatient (CLI) | payer SELFPAY ==
[2024-12-17 16:14] LABS: Abs Immature Grans 0.01 10^3/uL (0.0-0.06); Absolute Basophil Count 0.04 10^3/uL (0.0-0.2); Absolute Eosinophil Count 0.03 10^3/uL (0.0-0.7); Absolute Lymphocyte Count 1.99 10^3/uL (1.2-3.4); Absolute Monocyte Count 0.47 10^3/uL (0.1-0.8); Absolute Neutrophil Count 2.41 10^3/uL (1.2-6.7); Basophils % 0.8 %; Eosinophils % 0.6 %; HCT 41.6 % (36.0-46.0); HGB 14.4 g/dL (11.2-15.7); Immature Grans % 0.2 %; Lymphocytes % 40.2 %; MCH 33.3 pg (27.0-33.0); MCHC 34.6 % (32.0-36.0); MCV 96 fL (80-95); Monocytes % 9.5 %; Neutrophils % 48.7 %; Platelet Count 206 10^3/uL (130-400); RBC 4.33 10^6/uL (3.93-5.22); RDW 10.8 % (11.7-14.6); RDW-SD 38.5 fL; WBC 4.95 10^3/uL (4.4-10.8)
[2024-12-17 16:23] LABS: ESR < 1 mm/hr (0-30)
[2024-12-17 17:41] LABS: C-Reactive Protein < 0.50 mg/dL (<or=0.5)
[2024-12-18 17:48] LABS: Rheumatoid Factor <8.6 IU/mL (<12.0)
[2024-12-19 10:56] LABS: Lyme Ab w Rflx to Lyme Confirm Negative (Negative)
[2024-12-19 10:58] LABS: Syphilis Serology (RPR) Negative (Negative)
[2024-12-19 14:35] LABS: ANA Interpretation Negative (Negative)
== END 2024-12-17 02:16 | disposition home or self-care (01) ==
PROVIDERS: PCP Nurse Practitioner Family; Visit Provider Optometrist
DX: H35.063 Retinal vasculitis, bilateral (principal)
CPT/HCPCS: 36415; 85652; 85025; 86038; 86140; 86431; 86592; 86618